=== PATIENT | female | born 1975 | race Caucasian/White ===

== ENCOUNTER 2024-01-04 11:08 | Emergency (ER) | payer SELFPAY ==
--- NOTE | ~2024-01-04 | CT_ITS ---
CT of the Abdomen and Pelvis: Indication: Abdominal pain, chronic pancreatitis Technique: 2.5 mm axial scans were obtained through the abdomen and pelvis following intravenous adm inistration of 100 cc of Omnipaque 350. Dose reduction technique was used on this scan by utilizing a utomated exposure control and iterative reconstruction technique. The dose-length product (DLP) was 2 99.86 mGy-cm. Findings: Scans through the lung bases demonstrate partially imaged 5 mm right lower lobe pulmonary nodule. There is diffuse hepatic steatosis. Diffuse nodular contour of liver present, without focal mass. Sma ll layering calcified gallstones are present. The spleen, pancreas, adrenals and kidneys are within n ormal limits. Mild atherosclerotic calcification of the aorta noted. No lymphadenopathy. No bowel obstruction or bowel wall thickening. There is no evidence to suggest acute appendicitis. Images through the pelvis were performed. Questionable cystitis. No pelvic mass seen. Status post hys terectomy. No ascites. Impression: Cirrhotic liver with background diffuse fatty infiltration of the liver. Cholelithiasis. Pancreas unremarkable. Partially imaged 5 mm right lower lobe pulmonary nodule. Consider dedicated chest CT to more complete ly evaluate. Otherwise, consider one-year follow-up exam. Reviewed, dictated and finalized at location . Impression: Cirrhotic liver with background diffuse fatty infiltration of the liver. Cholelithiasis. Pancreas unremarkable. Partially imaged 5 mm right lower lobe pulmonary nodule. Consider dedicated dung st CT to more completely evaluate. Otherwise, consider one-year follow-up exam.
[2024-01-04 11:08] VITALS: BP 143/104; PULSE 85; RESP 18; TEMP 36.2; O2SAT 100
--- NOTE | 2024-01-04 11:39 | ED.GENADULT ---
HPI - General Adult General Chief complaint: Abdominal Pain Stated complaint: cough, diarrhea, headache Time Seen by Provider: 01/04/24 11:38 Source: patient Mode of arrival: ambulatory Limitations: no limitations History of Present Illness HPI narrative: 48 years old white female came to the ED walking complaining of diarrhea, vomiting, runny nose, coughing, headache for the last 6 days. Patient is telling me that she is homeless for the last 2 years. Was seen at [facility] 5 days ago for similar symptoms and is telling me that she have a negative workup including CT scan of the abdomen and pelvis and was discharged on lorazepam/ 20 tablets patient is telling me that she is supposed to be on 18 tablets of medicine which she cannot afford. Last alcohol intake 1 month ago, patient is telling me that she lives in her car she denies any fever or chills she is telling me that she in history of hypertension, liver cirrhosis, pancreatitis secondary to alcoholism can not cholecystectomy. Patient uses marijuana daily Related Data Allergies Allergy/AdvReac Type Severity Reaction Status Date / Time No Known Allergies Allergy Verified 01/04/24 11:22 Review of Systems Review of Systems: All systems reviewed & are unremarkable except as noted in HPI and below Exam Narrative: General appearance: Well-developed, well-nourished, does not look in pain Skin: Normal color Head: Normocephalic, nontraumatic Eyes: Clear conjunctiva ENT: Oropharynx normal, ears normal, nose normal Neck: Supple, nontender Chest and respiratory: Airway patent, no respiratory distress, no accessory muscle use Heart: Regular rate/rhythm Abdomen: Soft, diffuse abdominal pain, no guarding or rebound no organomegaly, quiet bowel sounds Vascular: Normal peripheral pulses, normal capillary refill. Musculoskeletal: Normal range of motion, nontender back Neurologic: Alert and oriented ?3, MID LEVEL PROVIDER is normal as tested, no gross motor deficit Course Vital Signs Vital signs: Vital Signs Temperature 36.2 C L 01/04/24 11:08 Pulse Rate 85 01/04/24 11:08 Respiratory Rate 18 01/04/24 11:08 Blood Pressure 143/104 H 01/04/24 11:08 Pulse Oximetry 100 01/04/24 11:08 Oxygen Delivery Room Air 01/04/24 11:08 Temperature 36.3 C L 01/04/24 12:50 Pulse Rate 89 01/04/24 12:50 Respiratory Rate 16 01/04/24 12:50 Blood Pressure 158/92 H 01/04/24 12:50 Pulse Oximetry 100 01/04/24 12:50 Oxygen Delivery Room Air 01/04/24 12:50 Medical Decision Making [facility] Narrative Medical decision making narrative: Patient presents with symptoms of viral infection, abdominal pain, history of pancreatitis Vital signs are stable Physical examination showed generalized diffuse abdominal tenderness Differential diagnosis include viral infection, pancreatitis, constipation, colitis, urinary tract infection, anxiety related symptoms, dehydration, electrolyte imbalance Blood workup today showed low potassium of 3.0 otherwise no acute abnormalities urinalysis showed no evidence of infection CT abdomen and pelvis with IV contrast showed no evidence of pancreatitis, pulmonary nodule. Patient will be discharged on potassium, was advised to follow up with family physician in 1 week for pulmonary nodule further evaluation. the pt was discharged to home.the pt,s condition upon discharge was fair,education was provided to the pt in reference to the final impression,discharge study results,treatment,prognosis and need for follow up . Vital Signs Vital Signs: Vital Signs Temperature 36.2 C L 01/04/24 11:08 Pulse Rate 85 01/04/24 11:08 Respiratory Rate 18 01/04/24 11
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
[2024-01-04 11:58] LABS: Basophils Absolute Auto 0.01 K/mm3 (0.00-0.10); Basophils Percent Auto 0.2 % (0.0-1.0); Eosinophils Absolute Auto 0.03 K/mm3 (0.02-0.50); Eosinophils Percent Auto 0.7 % (1.0-6.0); Hematocrit 41.5 % (35.0-49.0); Hemoglobin 14.4 g/dL (12.0-15.0); Immature Granulocyte Absolute 0.01 K/mm3 (0.00-0.00); Immature Granulocyte Percent A 0.2 % (0.0-0.0); Lymphocytes Absolute Auto 1.22 K/mm3 (1.10-4.50); Lymphocytes Percent Auto 30.4 % (18.0-42.0); Mean Corpuscular HGB Conc 34.7 g/dL (32-36); Mean Corpuscular Hemoglobin 32.1 pg (27.0-31.0); Mean Corpuscular Volume 92.4 fL (78.0-102.0); Mean Platelet Volume 9.9 fl (9.2-11.8); Monocytes Absolute Auto 0.51 K/mm3 (0.10-0.90); Monocytes Percent Auto 12.7 % (2.0-11.0); Neutrophils Absolute Auto 2.23 K/mm3 (1.70-7.20); Neutrophils Percent Auto 55.8 % (50.0-70.0); Platelet Count Result 81 K/mm3 (150-420); Red Blood Count 4.49 M/mm3 (4.20-5.40); Red Cell Distribution Width 14.5 % (11.6-14.4)
[2024-01-04 11:59] LABS: Appearance Urine Clear (Clear); Bilirubin Urine 1+ (Negative); Blood Urine Negative (Negative); Glucose Urine UA Negative (Negative); Ketones Urine Trace (Negative); Leukocyte Esterase Ur Negative LEU/UL (Negative); Nitrate Urine Negative (Negative); Protein Urine Trace (Negative); Specific Grav Ur >= 1.030 (1.010-1.020)
[2024-01-04] MEDS: SODIUM CHLORIDE 0.9% IV 1,000 ML 999 ML IV CONT (12:01)
[2024-01-04] MEDS: ONDANSETRON INJ 4 MG/2 ML VIAL IV PUSH (12:02)
[2024-01-04] MEDS: MORPHINE SULFATE (*CRX) 4 MG/ML INJ IV PUSH (12:03)
[2024-01-04 12:05] LABS: Influenza A QL RT-PCR Negative (Negative); Influenza B QL RT-PCR Negative (Negative); RSV RNA, RT-PCR Negative (Negative); SARS-CoV-2 RNA PCR Negative (Negative)
[2024-01-04 12:11] LABS: Add Urine Microscopic? YES; Color Urine Amber (Yellow); RBC Urine None seen /hpf (0-2); Squamous Epithelial Cell Urine Moderate /hpf (Few); WBC Urine 0-3 /hpf (0-3)
[2024-01-04 12:12] LABS: Amphetamine Screen Urine Negative (Negative); Bacteria Urine Trace /hpf; Barbiturate Screen Urine Negative (Negative); Benzodiazepines Screen Urine Negative (Negative); Cannabinoid Screen Urine Positive (Negative); Cocaine Screen Urine Negative (Negative); Methadone Screen Urine Negative (Negative); Mucus Urine Few /lpf; Opiate Screen Urine Negative (Negative); Phencyclidine Screen Urine Negative (Negative)
[2024-01-04 12:16] LABS: Alanine Aminotransferase 55 U/L (14-59); Albumin Level 3.6 g/dL (3.4-5.0); Alkaline Phosphatase 101 U/L (46-116); Anion Gap 6 mmol/L (4-12); Aspartate Amino Transferase 83 U/L (15-37); Blood Urea Nitrogen 8 mg/dL (7-18); Calcium 8.9 mg/dL (8.5-10.1); Carbon Dioxide 35 mmol/L (21-32); Chloride 101 mmol/L (98-108); Estimated CRCL calculation 78 ml/min; Estimated Glomerular Filt Rate > 60; Ethanol < 3 mg/dL (0-6); Glucose 82 mg/dL (70-99); Lipase 77 U/L (16-77); Osmolality Calculated 291 mOsm/kg (285-295); Sodium 142 mmol/L (136-145)
[2024-01-04 12:50] VITALS: BP 158/92; PULSE 89; RESP 16; TEMP 36.3; O2SAT 100
--- NOTE | 2024-01-04 12:56 | PC.NURSE ---
PT RETURNED FROM CT, SLIPPER SOCKS AND MORE WARM BLANKETS WERE PROVIDED. PT IS AWAITING RESULTS AT THIS TIME. PT WAS REQUESTING SOMETHING TO EAT AND DRINK, ADVISED TO AWAIT RESULTS, NAD NOTED. PT THEN ASKED [facility]YST[facility]PER FOR MORE PAIN MEDICATION, ERP IS NOTIFIED AND NO NEW ORDERS AT THIS TIME. WILL CONTINUE TO MONITOR. EX CAME TO VISIT PT PRIOR TO CT, HE HAS LEFT. PT REPORTS HE WILL BE TRANSPORTING HER AT [place]. WILL CONTINUE TO MONITOR.
[2024-01-04] MEDS: POTASSIUM CHLORIDE 20 MEQ PACKET (FOR LIQUID) 40 MEQ PO (13:31)
--- NOTE | 2024-01-04 13:39 | PC.NURSE ---
NO EMESIS OR DIARRHEA NOTED DURING THE ED VISIT.
== END 2024-01-04 13:35 | disposition home or self-care (01) ==
PROVIDERS: Emergency Provider Emergency Medicine
DX: E87.6 Hypokalemia (principal); R10.9 Unspecified abdominal pain; G89.29 Other chronic pain; R91.1 Solitary pulmonary nodule; Z91.141 Patient's other noncompliance with medication regimen due to financial hardship; Z20.822 Contact with and (suspected) exposure to COVID-19
CPT/HCPCS: 36415; 74177; 80053; 80307; 81001; 83690; 85025; 87637; 96361; 96374; 96375; 99284; A9270; J2270; J2405; J7030; Q9967

== ENCOUNTER 2024-01-09 03:22 | Observation (INO) | payer SELFPAY ==
[2024-01-09] VITALS (34 sets, daily range): BP systolic 123–180; BP diastolic 78–110; PULSE 64–99; RESP 12–42; TEMP 35.5–36.6; O2SAT 96–100; BMI 22.1
--- NOTE | ~2024-01-09 | CT_ITS ---
Clinical Indication: Abdominal pain, lung nodule, history pancreatitis CT Scan of the Chest, Abdomen, and Pelvis with Contrast: Technique: Contiguous sections were acquired throughout the chest, abdomen, and pelvis after intraven ous administration of 100 cc of Omnipaque 350. Dose reduction technique was used on this scan by uti lizing automated exposure control and iterative reconstruction technique. The dose-length product (DL P) was 421.71 mGy-cm. Comparison: 01/04/2024 Findings: There is no evidence of any significant mediastinal, hilar or axillary lymphadenopathy. The mediastin al soft tissues appear normal. No aortic aneurysm or dissection seen. No large pulmonary embolus seen . There is no evidence of pleural or pericardial effusion. Stable 5 mm right lower lobe pulmonary nodule. Stable 4 mm pleural-based nodule left lower lobe later ally (axial image 91). Calcified left basilar granuloma noted. There is diffuse hepatic steatosis, with small liver with nodular contour, compatible cirrhotic hickman e. Calcified gallstones are present. The spleen, pancreas, adrenals and kidneys are within normal avalos its. No evidence of aortic aneurysm. No lymphadenopathy. No bowel obstruction or bowel wall thickening. There is no evidence to suggest acute appendicitis. Urinary bladder is unremarkable. No pelvic mass seen. No ascites. Impression: Subcentimeter pulmonary nodules, as above. According to Fleischner Society criteria, for a low-risk p atient, no further follow-up required. For a high-risk patient, consider 12 month follow-up CT. Cirrhotic liver with associated diffuse fatty infiltration. Cholelithiasis. Reviewed, dictated and finalized at location . Impression: Subcentimeter pulmonary nodules, as above. According to Fleischner Society crit pily, for a low-risk patient, no further follow-up required. For a high-risk pa tient, consider 12 month follow-up CT. Cirrhotic liver with associated diffuse fatty infiltration. Cholelithiasis.
--- NOTE | ~2024-01-09 | US_ITS ---
Limited ABDOMINAL ULTRASOUND Ordering provider: Sanchez Baez MD History: . pain . Comparison: None. FINDINGS: LIVER: Lobulated surface which may indicate cirrhosis. Otherwise, Normal size. Slightly heterogenous echogenicity.. No focal hepatic lesions or perihepatic fluid collections are identified. Portal vein flow is normal. GALLBLADDER: Multiple stones. No evidence for sludge, gallbladder wall thickening or pericholecystic fluid collections. A negative sonographic Sky's sign was noted. BILIARY DUCTS: No evidence for intra or extrahepatic biliary dilation. Common bile duct measures mm i n diameter which is within normal limits. PANCREAS: Normal echotexture and size. Slightly dilated measuring 3.6 mm. FREE FLUID: None. IMPRESSION: Cholelithiasis. Slightly heterogenous echogenicity of the liver with lobulated surface which raises the possibility o f cirrhosis. Clinical correlation advised. Reviewed, dictated and finalized at location A. IMPRESSION: Cholelithiasis. Slightly heterogenous echogenicity of the liver with lobulated surface which ra ises the possibility of cirrhosis. Clinical correlation advised.
--- NOTE | 2024-01-09 03:31 | ECG_ITS ---
Test Date: 2024-01-09 03:45:55 Measurements Intervals [place] Rate: 85 P: 70 AL: 152 QRS: 79 QRSD: 96 T: 62 QT: 332 QTc: 396 Interpretive Statements SINUS RHYTHM DELAYED PRECORDIAL R/S TRANSITION ST-T WAVE ABNORMALITY IN LAT LEADS- CONSIDER ISCHEMIA BASELINE ARTIFACT- I, II, III, AVR, AVL, AVF ABNORMAL ECG No previous ECG available for comparison Electronically Signed On 01-09-2024 06:30:27 CDT by Edgar Nobles D.O.
--- NOTE | 2024-01-09 03:35 | ED.ABDPAIN ---
HPI - Abdominal Pain General Chief Complaint: Abdominal Pain <Sanchez Baez MD - Last Filed: 01/10/24 07:21> Stated Complaint: vomiting <Sanchez Baez MD - Last Filed: 01/10/24 07:21> Time Seen by Provider: 01/09/24 03:30 <Sanchez Baez MD - Last Filed: 01/10/24 07:21> Source: patient <Sanchez Baez MD - Last Filed: 01/10/24 07:21> Mode of arrival: ambulatory <Sanchez Baez MD - Last Filed: 01/10/24 07:21> Limitations: no limitations <Sanchez Baez MD - Last Filed: 01/10/24 07:21> History of Present Illness HPI narrative: Patient is a 48-year-old female with known alcoholism and secondary chronic pancreatitis, cirrhosis and gallbladder issues. This evening she started to feel not well having some anxiety and decrease her alcohol consumption and nausea and vomiting. She has been having diarrhea all week. She is noncompliant with her medications regularly. She drinks daily. No history of alcohol withdrawal. She has some left upper quadrant abdominal pain. She correlates this with her pancreas symptoms. <Sanchez Baez MD - Last Filed: 01/10/24 07:21> MD elicited complaint: abdominal pain <Sanchez Baez MD - Last Filed: 01/10/24 07:21> Pertinent past history: other ( Pancreatitis, cirrhosis and gallbladder issues) <Sanchez Baez MD - Last Filed: 01/10/24 07:21> Onset (ago): hour(s) (3) <Sanchez Baez MD - Last Filed: 01/10/24 07:21> Pain Consistency: constant <Sanchez Baez MD - Last Filed: 01/10/24 07:21> Location: [facility] <Sanchez Baez MD - Last Filed: 01/10/24 07:21> Severity: mild <Sanchez Baez MD - Last Filed: 01/10/24 07:21> Pain scale (0-10): 3 <Sanchez Baez MD - Last Filed: 01/10/24 07:21> Quality: sharp <Sanchez Baez MD - Last Filed: 01/10/24 07:21> Radiation: none <Sanchez Baez MD - Last Filed: 01/10/24 07:21> Migration to: no migration <Sanchez Baez MD - Last Filed: 01/10/24 07:21> Exacerbating factors: nothing <Sanchez Baez MD - Last Filed: 01/10/24 07:21> Relieving factors: nothing <Sanchez Baez MD - Last Filed: 01/10/24 07:21> Context: confirms other ( beer drinking daily; four loco) <Sanchez Baez MD - Last Filed: 01/10/24 07:21> Associated symptoms: nausea, vomiting and diarrhea <Sanchez Baez MD - Last Filed: 01/10/24 07:21> Related Data Allergies/Adverse Reactions: Allergies Allergy/AdvReac Type Severity Reaction Status Date / Time No Known Allergies Allergy Verified 01/09/24 03:36 <Sanchez Baez MD - Last Filed: 01/10/24 07:21> Review of Systems Review of Systems: All systems reviewed & are unremarkable except as noted in HPI and below <Sanchez Baez MD - Last Filed: 01/10/24 07:21> Constitutional: Constitutional: Reports no additional constitutional complaints <Sanchez Baez MD - Last Filed: 01/10/24 07:21> Eyes: Eyes: Reports no additional eye complaints <Sanchez Baez MD - Last Filed: 01/10/24 07:21> ENT: Reports system reviewed and no additional complaints, except as documented <Sanchez Baez MD - Last Filed: 01/10/24 07:21> Cardiovascular: Cardiovascular: Reports no additional cardiovascular complaints <Sanchez Baez MD - Last Filed: 01/10/24 07:21> Respiratory: Respiratory: Reports no additional respiratory complaints <Sanchez Baez MD - Last Filed: 01/10/24 07:21> Gastrointestinal: Gastrointestinal: Reports no additional gastrointestinal complaints <Sanchez Baez MD - Last Filed: 01/10/24 07:21> Genitourinary: Genitourinary: Reports no additional female genitourinary complaints <Sanchez Baez MD - Last Filed: 01/10/24 07:21> Musculoskeletal: Musculoskeletal: Reports no additional musculoskeletal complaints <Sanchez Baez MD - Last Filed: 01/10/24 07:21> Integumentary/Breasts: Skin/Breast: Reports system rev
--- NOTE | 2024-01-09 03:40 | PC.NURSE ---
pt placed on bedpan for urine specimen
[2024-01-09 03:52] LABS: Hematocrit 39.7 % (35.0-49.0); Hemoglobin 14.1 g/dL (12.0-15.0); Immature Platelet Fraction Pct 1.9 % (1.0-7.0); Mean Corpuscular HGB Conc 35.5 g/dL (32-36); Mean Platelet Volume 9.9 fl (9.2-11.8); Platelet Count Result 104 K/mm3 (150-420); Red Blood Count 4.41 M/mm3 (4.20-5.40); Red Cell Distribution Width 14.7 % (11.6-14.4); White Blood Count 2.8 K/mm3 (4.8-10.8)
[2024-01-09] MEDS: LORazepam INJ (*CRX) 2 MG/ML VIAL 1 MG IV PUSH (03:54)
[2024-01-09] MEDS: SODIUM CHLORIDE 0.9% IV 1,000 ML 999 ML IV CONT ×2 (03:55→04:45)
[2024-01-09] MEDS: PIPERACILLN/TAZ 3.375GM/NS50ML 3.375 GM/50 ML BAG IVPB (03:56)
[2024-01-09 03:58] LABS: Add Urine Microscopic? YES; Appearance Urine Clear (Clear); Bilirubin Urine 1+ (Negative); Blood Urine Negative (Negative); Color Urine Yellow (Yellow); Glucose Urine UA Negative (Negative); Ketones Urine 1+ (Negative); Leukocyte Esterase Ur Negative LEU/UL (Negative); Nitrate Urine Negative (Negative); Protein Urine 2+ (Negative); pH Urine 7.5 (5.0-8.0)
[2024-01-09 04:03] LABS: Amorphous Sediment Urine Few; Bacteria Urine 1+ /hpf; Mucus Urine Few /lpf; RBC Urine 0-2 /hpf (0-2); Squamous Epithelial Cell Urine Few /hpf (Few); WBC Urine 0-3 /hpf (0-3)
[2024-01-09 04:05] LABS: INR 1.1; Partial Thromboplastin Time 25.8 Sec (23.9-30.70); Prothrombin Time 11.9 Seconds (9.50-12.1)
[2024-01-09 04:08] LABS: Lactic Acid Reflex 4.7 mmol/L (0.4-2.0)
[2024-01-09 04:11] LABS: Band Neutrophils Percent 0 % (0-6); Neutrophils Absolute Manual 1.34 K/mm3 (1.7-7.2); Neutrophils Percent Manual 48 % (46-73); Total Cells Counted 100
[2024-01-09 04:12] LABS: Alanine Aminotransferase 49 U/L (14-59); Albumin Level 3.4 g/dL (3.4-5.0); Alkaline Phosphatase 102 U/L (46-116); Anion Gap 18 mmol/L (4-12); Aspartate Amino Transferase 99 U/L (15-37); Basophils Percent Manual 0 % (0-1); Bilirubin,Total 1.3 mg/dL (0.00-1.00); Blood Urea Nitrogen 4 mg/dL (7-18); Calcium 8.6 mg/dL (8.5-10.1); Carbon Dioxide 21 mmol/L (21-32); Chloride 103 mmol/L (98-108); Eosinophils Percent Manual 0 % (1-6); Estimated CRCL calculation 79 ml/min; Estimated Glomerular Filt Rate > 60; Glucose 118 mg/dL (70-99); Lipase 69 U/L (16-77); Lymphocytes Percent Manual 43 % (18-44); Magnesium 1.3 mg/dL (1.8-2.4); Monocytes Absolute Manual 0.25 K/mm3 (0.1-0.90); Monocytes Percent Manual 9 % (3-9); Osmolality Calculated 291 mOsm/kg (285-295); Platelet Estimate Decreased (Adequate); Sodium 142 mmol/L (136-145); Total Protein 7.4 g/dL (6.4-8.2); Troponin I 4.9 ng/L (0.00-60.4)
[2024-01-09 04:13] LABS: Potassium 2.2 mmol/L (3.5-5.1)
[2024-01-09] MEDS: MORPHINE SULFATE (*CRX) 2 MG/ML INJ IV PUSH (04:44)
[2024-01-09] MEDS: KCL 20 MEQ/SW 100 ML 100 ML 50 MEQ IVPB ×3 (04:45→13:41)
[2024-01-09] MEDS: MAGNESIUM SULF 2 GM/WATER 50ML 2 GM/50 ML BAG IVPB (04:58)
--- NOTE | 2024-01-09 05:17 | PC.NURSE ---
Pt throwing off covers, sweating, saying she is burning up. Gave her a cold wash cloth for her forehead. She dry heaved 3 times. Pt used bedside commode. Pt back in stretcher. Now she says she is freezing and wants to be covered back up.
[2024-01-09] MEDS: ONDANSETRON INJ 4 MG/2 ML VIAL IV PUSH ×4 (05:57→14:10)
--- NOTE | 2024-01-09 06:04 | PC.NURSE ---
Assisted pt in using bedside commode. ERP approved giving pt cup of room temp water to drink.
[2024-01-09 06:47] LABS: Reflex Lactic Acid Yes or No Add Lactic
[2024-01-09 07:21] LABS: Lactic Acid 2.4 mmol/L (0.4-2.0)
[2024-01-09] MEDS: HYDROmorphone HCL INJ (*CRX) 2 MG/ML VIAL 0.5 MG IV PUSH (07:31)
[2024-01-09 09:25] LABS: Amphetamine Screen Urine Negative (Negative); Barbiturate Screen Urine Negative (Negative); Benzodiazepines Screen Urine Negative (Negative); Cannabinoid Screen Urine Positive (Negative); Cocaine Screen Urine Negative (Negative); Methadone Screen Urine Negative (Negative); Opiate Screen Urine Negative (Negative); Phencyclidine Screen Urine Negative (Negative)
[2024-01-09 09:26] LABS: Anion Gap 12 mmol/L (4-12); Blood Urea Nitrogen 3 mg/dL (7-18); Calcium 7.9 mg/dL (8.5-10.1); Carbon Dioxide 28 mmol/L (21-32); Chloride 104 mmol/L (98-108); Estimated CRCL calculation 91 ml/min; Estimated Glomerular Filt Rate > 60; Ethanol 16 mg/dL (0-6); Glucose 130 mg/dL (70-99); Magnesium 1.8 mg/dL (1.8-2.4); Osmolality Calculated 296 mOsm/kg (285-295); Potassium 2.7 mmol/L (3.5-5.1); Sodium 144 mmol/L (136-145)
[2024-01-09] MEDS: SODIUM CHLORIDE 0.9% IV 1,000 ML 100 ML IV CONT ×2 (09:58→22:04)
[2024-01-09] MEDS: FOLIC ACID 1 MG TABLET PO (09:58)
[2024-01-09] MEDS: MULTIVITAMINS THERAPEUTIC TAB (*BKC) 1 TABLET PO (09:58)
[2024-01-09] MEDS: THIAMINE HCL 100 MG TABLET PO (09:59)
[2024-01-09] MEDS: LORazepam (*CRX) 1 MG TABLET 2 MG PO ×2 (10:33→17:06)
[2024-01-09] MEDS: methocarbamoL 750 MG TABLET PO ×3 (10:33→19:39)
[2024-01-09] MEDS: LORazepam INJ (*CRX) 2 MG/ML VIAL IV PUSH ×2 (14:10→20:21)
--- NOTE | 2024-01-09 14:35 | PC.NURSE ---
Pt arrived on the unit at 0930 from the ER. She is alert and orientated x 3. Vomitted x1 and is nauseous . Pt is very anxious, having tremors, and is withdrawing from ETOH. Pt is sweating at this time. She is homeless and Care coordination is involved.
--- NOTE | 2024-01-09 14:41 | PM.IMHP ---
H&P: HPI History of Present Illness Date/Time: 01/09/24 14:41 Chief Complaint: N/V/ABD pain Narrative: Patient is a 48-year-old female who presented to the emergency department with complaints nausea vomiting abdominal pain. Patient stated symptoms began around 5 days ago when she initially came to the ER for evaluation and was discharged home p.o. potassium. Patient returned today for worsening symptoms. Patient did report she has a past history of hypertension, EtOH abuse, and marijuana use. Patient states she is currently homeless and unable to afford any of her home medications. Patient reported last alcoholic drink about 12 hours prior to arrival ETOH was 16 and drug screen was positive for cannabis. Patient denied chest pain shortness of breath, fever, chills but did endorse nausea vomiting abdominal pain and reported severe anxiety. Patient's KUB did show cholelithiasis. Patient with noticeable tremors and diaphoresis upon assessment. Patient was admitted to medical unit evaluation and treatment ETOH withdrawal, hypokalemia, hypo magnesium, dehydration, and nausea vomiting. Review of Systems Review of Systems: All systems reviewed & are unremarkable except as noted in HPI and below PMFSH Past Medical History Medical History (Updated 01/09/24 @ 14:52 by Holli Sunshine APRN) ETOH abuse Hypertension Social History Social History Smoking status: Never smoker Second hand tobacco smoke exposure: No Alcohol intake: current Drinks per week: 30 Substance use: current Substance use type: marijuana Other substance usage details: Last drink was at 6am this morning Do You Feel Safe in your Home?: No Lack of Transportation: YES Lack of Food: Sometimes True Current Housing: I Do Not Have Housing Concerned About Future Housing: YES Difficulty Paying Gas/Electric Bills: YES Difficulty Paying for Meds: YES Currently Unemployed: YES Education: High School Diploma/GED Difficulty w/ Childcare or Family Care: No Spiritual care concerns: No Meds Home Medications and Allergies Home Medications Medication Instructions Recorded Confirmed Type potassium chloride 20 mEq 40 meq PO BID #20 tabs 01/04/24 01/09/24 Rx tablet,extended release Allergies Allergy/AdvReac Type Severity Reaction Status Date / Time No Known Allergies Allergy Verified 01/09/24 03:36 Vital Signs Vital Signs - 24 hr 01/09/24 03:30 01/09/24 04:06 01/09/24 03:30 Temperature 95.9 F L 97.9 F Pulse Rate 89 92 Pulse Rate [Radial] Respiratory Rate 20 42 H Blood Pressure 155/93 H 145/83 H Pulse Oximetry 100 100 Oxygen Delivery Room Air 01/09/24 03:50 01/09/24 04:00 01/09/24 04:01 Temperature Pulse Rate 73 75 70 Pulse Rate [Radial] Respiratory Rate 14 25 H 24 H Blood Pressure 157/101 H 155/84 H Pulse Oximetry 100 100 99 Oxygen Delivery 01/09/24 04:15 01/09/24 04:16 01/09/24 04:36 Temperature Pulse Rate 66 70 Pulse Rate [Radial] Respiratory Rate 23 H 31 H Blood Pressure 149/91 H 165/94 H Pulse Oximetry 100 100 Oxygen Delivery 01/09/24 04:46 01/09/24 05:01 01/09/24 05:16 Temperature Pulse Rate 68 82 77 Pulse Rate [Radial] Respiratory Rate 26 H 23 H 32 H Blood Pressure 164/110 H 147/99 H 146/79 H Pulse Oximetry 100 96 100 Oxygen Delivery 01/09/24 05:30 01/09/24 05:45 01/09/24 06:01 Temperature Pulse Rate 76 86 74 Pulse Rate [Radial] Respiratory Rate 22 H 20 30 H Blood Pressure 123/79 135/92 H 151/101 H Pulse Oximetry 97 96 100 Oxygen Delivery 01/09/24 06:02 01/09/24 06:15 01/09/24 07:05 Temperature 97.6 F Pulse Rate 69 71 78 Pulse Rate [Radial] Respiratory Rate 33 H 12 28 H Blood Pressure 165/78 H Pulse Oximetry 100 97 99 Oxygen Delivery Room Air 01/09/24 06:30 01/09/24 06:45 01/09/24 07:24 Temperature Pulse Rate 75 94 Pulse
[2024-01-09 15:45] LABS: Lactic Acid Reflex 1.2 mmol/L (0.4-2.0)
[2024-01-09] MEDS: POTASSIUM CHLORIDE 20 MEQ ER TABLET 40 MEQ PO (17:07)
[2024-01-09 17:29] LABS: Glucose Point of Care 137 mg/dl (65-105)
[2024-01-09] MEDS: traZODone HCL 50 MG TABLET PO (22:27)
[2024-01-10] VITALS: BP 138/80; PULSE 78; PULSE 84; PULSE 87; RESP 16; TEMP 36.5; O2SAT 99
[2024-01-10 00:21] LABS: Glucose Point of Care 119 mg/dl (65-105)
[2024-01-10] MEDS: LORazepam INJ (*CRX) 2 MG/ML VIAL IV PUSH ×4 (00:23→13:33)
[2024-01-10] MEDS: LORazepam (*CRX) 1 MG TABLET 2 MG PO ×2 (02:14→09:54)
[2024-01-10 04:00] VITALS: BP 128/76; PULSE 82; PULSE 88; PULSE 94; RESP 16; TEMP 36.4; O2SAT 98
[2024-01-10 05:45] LABS: Hematocrit 37.4 % (35.0-49.0); Hemoglobin 13.2 g/dL (12.0-15.0); Immature Platelet Fraction Pct 3.3 % (1.0-7.0); Mean Corpuscular HGB Conc 35.3 g/dL (32-36); Mean Corpuscular Hemoglobin 32.6 pg (27.0-31.0); Mean Corpuscular Volume 92.3 fL (78.0-102.0); Platelet Count Result 76 K/mm3 (150-420); Red Blood Count 4.05 M/mm3 (4.20-5.40); White Blood Count 2.8 K/mm3 (4.8-10.8)
[2024-01-10 05:56] LABS: Band Neutrophils Percent 0 % (0-6); Basophils Absolute Manual 0.05 K/mm3 (0-0.1); Basophils Percent Manual 2 % (0-1); Eosinophils Absolute Manual 0.05 K/mm3 (0.02-0.50); Eosinophils Percent Manual 2 % (1-6); Lymphocytes Absolute Manual 0.89 K/mm3 (1.1-4.5); Lymphocytes Percent Manual 32 % (18-44); Monocytes Absolute Manual 0.44 K/mm3 (0.1-0.90); Monocytes Percent Manual 16 % (3-9); Neutrophils Absolute Manual 1.34 K/mm3 (1.7-7.2); Neutrophils Percent Manual 48 % (46-73); Platelet Estimate Decreased (Adequate)
[2024-01-10 06:02] LABS: Alanine Aminotransferase 40 U/L (14-59); Albumin Level 2.9 g/dL (3.4-5.0); Alkaline Phosphatase 89 U/L (46-116); Anion Gap 10 mmol/L (4-12); Aspartate Amino Transferase 60 U/L (15-37); Bilirubin,Total 1.1 mg/dL (0.00-1.00); Blood Urea Nitrogen 3 mg/dL (7-18); Carbon Dioxide 25 mmol/L (21-32); Chloride 103 mmol/L (98-108); Estimated CRCL calculation 78 ml/min; Estimated Glomerular Filt Rate > 60; Glucose 95 mg/dL (70-99); Magnesium 1.6 mg/dL (1.8-2.4); Osmolality Calculated 282 mOsm/kg (285-295); Sodium 138 mmol/L (136-145); Total Protein 6.7 g/dL (6.4-8.2)
[2024-01-10 06:33] LABS: Glucose Point of Care 98 mg/dl (65-105)
[2024-01-10] MEDS: ACETAMINOPHEN 325 MG TABLET 650 MG PO (06:49)
[2024-01-10 07:51] VITALS: BP 125/88; PULSE 83
[2024-01-10 08:00] VITALS: BP 125/85; PULSE 87; PULSE 95; RESP 14; TEMP 36.5; O2SAT 97
[2024-01-10] MEDS: SODIUM CHLORIDE 0.9% IV 1,000 ML 100 ML IV CONT (08:07)
[2024-01-10] MEDS: KCL 20 MEQ/SW 100 ML 100 ML 50 MEQ IVPB (09:45)
[2024-01-10] MEDS: POTASSIUM CHLORIDE 20 MEQ ER TABLET 40 MEQ PO (09:53)
[2024-01-10] MEDS: FOLIC ACID 1 MG TABLET PO (09:54)
[2024-01-10] MEDS: THIAMINE HCL 100 MG TABLET PO (09:54)
[2024-01-10] MEDS: PANTOPRAZOLE 40 MG TABLET PO (09:55)
[2024-01-10] MEDS: MULTIVITAMINS THERAPEUTIC TAB (*BKC) 1 TABLET PO (09:55)
[2024-01-10 12:00] VITALS: BP 135/78; BP 138/80; PULSE 88; PULSE 97; RESP 14; TEMP 36.6; O2SAT 98
[2024-01-10 12:13] LABS: Glucose Point of Care 141 mg/dl (65-105)
--- NOTE | 2024-01-10 12:33 | PM.DS ---
DS: Admitting Diagnosis Discharge Date 01/10/2024 Admitting Diagnosis alcohol withdrawal/ hypokalemia/ Hypomagnesium DS: Discharge Diagnosis Discharge Diagnosis (1) ETOH abuse: Code(s): F10.10 - Alcohol abuse, uncomplicated Status: Acute (2) Acute hypokalemia: Code(s): E87.6 - Hypokalemia Status: Acute (3) Hypertension: Code(s): I10 - Essential (primary) hypertension Status: Acute (4) Hypomagnesemia: Code(s): E83.42 - Hypomagnesemia Status: Acute Assessment and Plan: 1.3 POA 2gram Mag daily cardiac monitoring (5) Cannabis abuse: Code(s): F12.10 - Cannabis abuse, uncomplicated Status: Acute (6) Leukopenia: Code(s): D72.819 - Decreased white blood cell count, unspecified Status: Acute Plan Disposition: Patient discharged to home DS: Summary Hospital Course Reason for hospitalization: alcohol withdrawal/ hypokalemia/ Hypomagnesium Hospital Course: Patient was [id number] female who presented to the emergency department with complaints nausea vomiting abdominal pain. Patient stated symptoms began around 5 days ago when she initially came to the ER for evaluation and was discharged home p.o. potassium. Patient returned today for worsening symptoms. Patient did report she has a past history of hypertension, EtOH abuse, and marijuana use. Patient states she is currently homeless and unable to afford any of her home medications. Patient reported last alcoholic drink about 12 hours prior to arrival ETOH was 16 and drug screen was positive for cannabis. Patient denied chest pain shortness of breath, fever, chills but did endorse nausea vomiting abdominal pain and reported severe anxiety. Patient's KUB did show cholelithiasis. Patient with noticeable tremors and diaphoresis upon assessment. Patient was admitted to medical unit and treatment for ETOH withdrawal, hypokalemia, hypo magnesium, dehydration, and nausea vomiting. Patient improved with treatment and was tolerating oral intake. electrolytes stable at discharge. She was provided prescriptions for ETOH including multi-vitamin, Thiamine, and folic acid daily. Encouraged patient on immediate ETOH cessation. Status at Discharge Functional status at discharge: independent ambulation Time Spent with Patient Time attestation: Total time spent providing and/or coordinating discharge services: Time spent: Greater than 30 minutes Exam Narrative: Physical Exam: GENERAL: Alert and oriented x 3. No acute distress. EYES: EOMI. No scleral icterus. PERRLA. HEENT: Moist mucous membranes. LUNGS: Clear to auscultation bilaterally. No accessory muscle use. CARDIOVASCULAR: Regular rate and rhythm. No murmur. No JVD. S1-S2 ABDOMEN: Soft, non tenderness and non-distended. No palpable masses. EXTREMITIES: No edema. Non-tender SKIN: No rashes or lesions. Skin warm, dry. NEUROLOGIC: No focal neurological deficits. CN II-XII grossly intact PSYCHIATRIC: Appropriate mood and affect. Good judgement and insight. No visual or auditory hallucinations. No suicidal or homicidal ideation. DS: Data Data Completed and Pending Labs on day of discharge: Labs from last 24 hours 01/10/24 01/10/24 01/10/24 12:05 06:27 05:20 WBC 2.8 L RBC 4.05 L Hgb 13.2 Hct 37.4 MCV 92.3 MCH 32.6 H MCHC 35.3 RDW 15.0 H Plt Count 76 L MPV 10.0 Immature Gran % (Auto) Not Reportable Neut % (Auto) Not Reportable Lymph % (Auto) Not Reportable [place] % (Auto) Not Reportable Eos % (Auto) Not Reportable Baso % (Auto) Not Reportable Lymph # (Auto) Not Reportable [place] # (Auto) Not Reportable Eos # (Auto) Not Reportable Baso # (Auto) Not Reportable Abs Immat Gran (auto) Not Reportable Absolute Neuts (auto) Not Reportable Absolute Nucleated RBC Not Reportable Neutrophils % (Manual) 48 Band Neutrophils % 0
[2024-01-10 13:14] LABS: Anion Gap 11 mmol/L (4-12); Calcium 8.5 mg/dL (8.5-10.1); Carbon Dioxide 24 mmol/L (21-32); Chloride 105 mmol/L (98-108); Estimated CRCL calculation 71 ml/min; Estimated Glomerular Filt Rate > 60; Glucose 104 mg/dL (70-99); Potassium 3.8 mmol/L (3.5-5.1); Sodium 140 mmol/L (136-145)
[2024-01-10 13:20] LABS: Blood Urea Nitrogen 4 mg/dL (7-18); Osmolality Calculated 286 mOsm/kg (285-295)
--- NOTE | 2024-01-10 14:32 | PC.NURSE ---
Pt discharged to Ex husbands home. Pt given discharge instructions about medications: purpose, SE, times and dosages. Fall precautions reviewed, vice president of consulting services information reviewed with pt. Pt instructed not to drink ETHOL while taking trazadone. Pt encouraged to get a PCP and contact [facility] and let them know that she has been hospitalized.
== END 2024-01-10 13:30 | disposition home or self-care (01) ==
LOC: CHSED 08:55 → CHS2ND 08:58
PROVIDERS: Emergency Medicine; Admitting Provider Internal Medicine; Emergency Provider Family Medicine; Visit Provider Nurse Practitioner Family
DX: F10.139 Alcohol abuse with withdrawal, unspecified (principal); Y90.0 Blood alcohol level of less than 20 mg/100 ml; E87.6 Hypokalemia; I10 Essential (primary) hypertension; E83.42 Hypomagnesemia; F12.10 Cannabis abuse, uncomplicated; D72.819 Decreased white blood cell count, unspecified; E86.0 Dehydration; R11.2 Nausea with vomiting, unspecified; K86.1 Other chronic pancreatitis; Z59.00 Homelessness unspecified; Z91.148 Patient's other noncompliance with medication regimen for other reason
CPT/HCPCS: 36415; 71260; 74177; 76705; 80048; 80053; 80307; 81001; 82948; 83605; 83690; 83735; 84484; 85025; 85055; 85610; 85730; 87040; 93005; 96361; 96365; 96366; 96367; 96375; 96376; 99285; A9270; G0378; J1170; J2060; J2270; J2405; J2543; J3475; J3480; J7030; Q9967

== ENCOUNTER 2024-01-13 03:18 | Emergency (ER) | payer SELFPAY ==
--- NOTE | ~2024-01-13 | CT_ITS ---
CT of the Abdomen and Pelvis: Indication: Epigastric pain Technique: 2.5 mm axial scans were obtained through the abdomen and pelvis following intravenous adm inistration of 100 cc of Omnipaque 350. Dose reduction technique was used on this scan by utilizing a utomated exposure control and iterative reconstruction technique. The dose-length product (DLP) was 3 21.47 mGy-cm. COMPARISON: 01/09/2024 Findings: Scans through the lung bases are unremarkable. Cirrhotic morphology of liver present with diffuse fatty infiltration. No focal hepatic mass or bilia ry dilatation. Calcified gallstones are present. The spleen, pancreas, adrenals and kidneys are withi n normal limits. No evidence of aortic aneurysm. No lymphadenopathy. No bowel obstruction or bowel wall thickening. There is no evidence to suggest acute appendicitis. Images through the pelvis were performed. Urinary bladder unremarkable. No pelvic mass seen. No ascit es. Impression: Cirrhotic liver with diffuse fatty infiltration. Cholelithiasis. Reviewed, dictated and finalized at location . Impression: Cirrhotic liver with diffuse fatty infiltration. Cholelithiasis.
[2024-01-13 03:26] VITALS: BP 128/91; PULSE 88; RESP 15; TEMP 36.3; O2SAT 97
[2024-01-13 03:30] VITALS: BP 111/80; PULSE 87; RESP 22; O2SAT 97
--- NOTE | 2024-01-13 03:42 | ED.NAVMDI ---
HPI - Nausea/Vomiting/Diarrhea General Chief complaint: Nausea/Vomiting/Diarrhea Stated complaint: N/V Source: patient and EMS Mode of arrival: EMS Limitations: no limitations History of Present Illness HPI Narrative: this is a 48-year-old female with a history of pancreatitis alcohol abuse presents via EMS with abdominal pain diffuse localizing to her left lower quadrant and with nausea and vomiting and episodes of diarrhea. Patient was recently discharged from the hospital for similar events. There is currently no fever chills no chest pain no shortness breath. MD elicited complaint: nausea, vomiting, diarrhea and abdominal pain Onset (ago): day(s) Related Data Allergies Allergy/AdvReac Type Severity Reaction Status Date / Time No Known Allergies Allergy Verified 01/13/24 03:30 Review of Systems Review of Systems: All systems reviewed & are unremarkable except as noted in HPI and below PMFSH Past Medical History Medical History ETOH abuse Hypertension Social History Social History Smoking status: Never smoker Second hand tobacco smoke exposure: No Alcohol intake: current Drinks per week: 30 Substance use: current Substance use type: marijuana Other substance usage details: Last drink was at 6am this morning Do You Feel Safe in your Home?: No Lack of Transportation: YES Lack of Food: Sometimes True Current Housing: I Do Not Have Housing Concerned About Future Housing: YES Difficulty Paying Gas/Electric Bills: YES Difficulty Paying for Meds: YES Currently Unemployed: YES Education: High School Diploma/GED Difficulty w/ Childcare or Family Care: No Spiritual care concerns: No Exam Const: General: healthy appearing and no acute distress Nutritional Appearance: well nourished Orientation/consciousness: patient oriented x3 Neck: Neck: normal visual inspection, no lymphadenopathy and no meningeal signs Chest: Chest palpation & inspection: normal inspection of the chest Resp: Effort & Inspection: normal respiratory effort Auscultation: clear to auscultation bilaterally Cardio: Rate: regular rate Rhythm: regular rhythm GI: GI Palp: Yes Soft to palpation, Yes Tenderness to palpation present (GI) and Yes Guarding due to palpation present (GI) Auscultation: normal bowel sounds : General: Yes bladder normal to palpation Back/Spine/Pelvis: Back: no CVA tenderness Skin: General skin exam: normal color Rashes: no rashes Wounds: no wounds Neuro: General: patient oriented x3 Extrem: General: normal to inspection Course Vital Signs Vital signs: Vital Signs Temperature 36.3 C L 01/13/24 03:26 Pulse Rate 88 01/13/24 03:26 Respiratory Rate 15 01/13/24 03:26 Blood Pressure 128/91 H 01/13/24 03:26 Pulse Oximetry 97 01/13/24 03:26 Oxygen Delivery Room Air 01/13/24 03:26 Temperature 36.3 C L 01/13/24 03:26 Pulse Rate 80 01/13/24 06:00 Respiratory Rate 24 H 01/13/24 06:00 Blood Pressure 121/84 01/13/24 06:00 Pulse Oximetry 95 01/13/24 06:00 Oxygen Delivery Room Air 01/13/24 06:00 MDM - Nausea/Vomiting/Diarrhea Lab Data 01/13/24 04:02 01/13/24 04:02 Labs: Lab Results 01/13/24 01/13/24 Range/Units 03:55 04:02 WBC 3.6 L (4.8-10.8) K/mm3 RBC 4.31 (4.20-5.40) M/mm3 Hgb 13.9 (12.0-15.0) g/dL Hct 40.4 (35.0-49.0) % MCV 93.7 (78.0-102.0) fL MCH 32.3 H (27.0-31.0) pg MCHC 34.4 (32-36) g/dL RDW 15.2 H (11.6-14.4) % Plt Count 100 L (150-420) K/mm3 MPV 10.1 (9.2-11.8) fl Immature Gran % (Auto) Not Reportable Neut % (Auto) Not Reportable Lymph % (Auto) Not Reportable [place] % (Auto) Not Reportable Eos % (Auto) Not Reportable Baso % (Auto) Not Reportable Lymph # (Auto) Not Reportable [place] # (Auto) Not Reportable
[2024-01-13] MEDS: SODIUM CHLORIDE 0.9% IV 1,000 ML 999 ML IV CONT (03:56)
[2024-01-13 03:58] LABS: Add Urine Microscopic? YES; Appearance Urine Clear (Clear); Bilirubin Urine 1+ (Negative); Blood Urine Negative (Negative); Color Urine Orange (Yellow); Glucose Urine UA Negative (Negative); Ketones Urine Trace (Negative); Leukocyte Esterase Ur Negative LEU/UL (Negative); Nitrate Urine Negative (Negative); Protein Urine Trace (Negative)
[2024-01-13] MEDS: PANTOPRAZOLE SODIUM IV 40 MG VIAL IV PUSH (03:58)
[2024-01-13] MEDS: MORPHINE SULFATE (*CRX) 4 MG/ML INJ IV PUSH (03:59)
[2024-01-13] MEDS: ONDANSETRON INJ 4 MG/2 ML VIAL IV PUSH (04:01)
[2024-01-13 04:06] VITALS: BP 121/83; PULSE 80; RESP 29; O2SAT 98
[2024-01-13 04:07] LABS: Hematocrit 40.4 % (35.0-49.0); Hemoglobin 13.9 g/dL (12.0-15.0); Immature Platelet Fraction Pct 3.5 % (1.0-7.0); Mean Corpuscular HGB Conc 34.4 g/dL (32-36); Mean Corpuscular Hemoglobin 32.3 pg (27.0-31.0); Mean Corpuscular Volume 93.7 fL (78.0-102.0); Mean Platelet Volume 10.1 fl (9.2-11.8); Platelet Count Result 100 K/mm3 (150-420); Red Blood Count 4.31 M/mm3 (4.20-5.40); Red Cell Distribution Width 15.2 % (11.6-14.4); White Blood Count 3.6 K/mm3 (4.8-10.8)
[2024-01-13 04:18] LABS: Bacteria Urine Trace /hpf; Mucus Urine Few /lpf; RBC Urine 0-2 /hpf (0-2); Squamous Epithelial Cell Urine Moderate /hpf (Few); WBC Urine 0-3 /hpf (0-3)
[2024-01-13 04:24] LABS: INR 1.1; Partial Thromboplastin Time 26.1 Sec (23.9-30.70); Prothrombin Time 11.5 Seconds (9.50-12.1)
[2024-01-13 04:26] LABS: Alanine Aminotransferase 46 U/L (14-59); Albumin Level 3.5 g/dL (3.4-5.0); Alkaline Phosphatase 99 U/L (46-116); Anion Gap 8 mmol/L (4-12); Aspartate Amino Transferase 63 U/L (15-37); Blood Urea Nitrogen 13 mg/dL (7-18); Calcium 9.1 mg/dL (8.5-10.1); Carbon Dioxide 29 mmol/L (21-32); Chloride 102 mmol/L (98-108); Estimated CRCL calculation 73 ml/min; Estimated Glomerular Filt Rate > 60; Glucose 72 mg/dL (70-99); Lipase 84 U/L (16-77); Osmolality Calculated 287 mOsm/kg (285-295); Potassium 3.5 mmol/L (3.5-5.1); Sodium 139 mmol/L (136-145); Total Protein 7.9 g/dL (6.4-8.2)
[2024-01-13 04:28] LABS: Band Neutrophils Percent 0 % (0-6); Basophils Absolute Manual 0.03 K/mm3 (0-0.1); Basophils Percent Manual 1 % (0-1); Eosinophils Percent Manual 0 % (1-6); Lymphocytes Absolute Manual 1.11 K/mm3 (1.1-4.5); Lymphocytes Percent Manual 31 % (18-44); Monocytes Absolute Manual 0.32 K/mm3 (0.1-0.90); Monocytes Percent Manual 9 % (3-9); Neutrophils Absolute Manual 2.12 K/mm3 (1.7-7.2); Neutrophils Percent Manual 59 % (46-73); Platelet Estimate Adequate (Adequate)
[2024-01-13 04:31] LABS: Lactic Acid Reflex 1.8 mmol/L (0.4-2.0)
[2024-01-13 05:05] VITALS: BP 118/86; PULSE 88; RESP 20; O2SAT 99
[2024-01-13 06:00] VITALS: BP 121/84; PULSE 80; RESP 24; O2SAT 95
--- NOTE | 2024-01-15 14:13 | PC.NURSE ---
preliminary blood cultures x2 reviewed. no growth to date.
--- NOTE | 2024-01-19 12:10 | PC.NURSE ---
FINAL BLOOD CULTURE RESULTS X2: NO GROWTH AFTER 5 DAYS.
== END 2024-01-13 07:15 | disposition home or self-care (01) ==
PROVIDERS: Emergency Provider Emergency Medicine
DX: K52.9 Noninfective gastroenteritis and colitis, unspecified (principal); I10 Essential (primary) hypertension
CPT/HCPCS: 36415; 74177; 80053; 81001; 83605; 83690; 85025; 85055; 85610; 85730; 87040; 96361; 96374; 96375; 99284; J2270; J2405; J2470; J7030; Q9967

== ENCOUNTER 2024-01-27 18:34 | Emergency (ER) | payer SELFPAY ==
[2024-01-27 18:41] VITALS: BP 144/119; PULSE 99; RESP 20; TEMP 36.8; O2SAT 99
[2024-01-27 18:42] VITALS: BP 166/113
--- NOTE | 2024-01-27 18:42 | ED.BACK ---
HPI - Back Pain/Injury General Chief Complaint: Back Pain/Injury Stated Complaint: upper respiratory complaints Time Seen by Provider: 01/27/24 18:41 Source: patient Mode of arrival: ambulatory Limitations: no limitations History of Present Illness HPI Narrative: 48 YEARS OLD WHITE FEMALE DROVE HERSELF TO THE EMERGENCY ROOM COMPLAINING OF ACHES ALL OVER, BACK PAIN, HAND PAIN FOR YEARS, START WORKING OVER THE LAST 2 WEEKS INCLUDING REPETITIVE MOVEMENT OF THE HANDS. 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 UNABLE TO AFFORD TO FIX IT. HER MAIN COMPLAIN TODAY IS HAND PAIN AND NUMBNESS. SHE DENIES ANY FEVER, CHILLS, NAUSEA, VOMITING, DIARRHEA, CONSTIPATION, SHORTNESS OF BREATH, CHEST PAIN. PATIENT IS TELLING ME THAT SHE BEEN HOMELESS FOR THE LAST 2 YEARS, SHE DRINKS ALCOHOL DAILY, USES MARIJUANA DAILY. DENIES CIGARETTE SMOKING Related Data Allergies Allergy/AdvReac Type Severity Reaction Status Date / Time No Known Allergies Allergy Verified 01/27/24 18:39 Review of Systems Review of Systems: All systems reviewed & are unremarkable except as noted in HPI and below PMFSH Past Medical History Medical History ETOH abuse Hypertension Social History Social History Smoking status: Never smoker Second hand tobacco smoke exposure: No Alcohol intake: current Drinks per week: 30 Substance use: current Substance use type: marijuana Other substance usage details: Last drink was at 6am this morning Do You Feel Safe in your Home?: No Lack of Transportation: YES Lack of Food: Sometimes True Current Housing: I Do Not Have Housing Concerned About Future Housing: YES Difficulty Paying Gas/Electric Bills: YES Difficulty Paying for Meds: YES Currently Unemployed: YES Education: High School Diploma/GED Difficulty w/ Childcare or Family Care: No Spiritual care concerns: No Exam Narrative: GENERAL APPEARANCE: WELL-DEVELOPED, WELL-NOURISHED SKIN: NORMAL COLOR HEAD: NORMOCEPHALIC, NONTRAUMATIC EYES: CLEAR CONJUNCTIVA ENT: OROPHARYNX NORMAL, EARS NORMAL, NOSE NORMAL NECK: SUPPLE, NONTENDER CHEST AND RESPIRATORY: AIRWAY PATENT, NO RESPIRATORY DISTRESS, NO ACCESSORY MUSCLE USE HEART: REGULAR RATE/RHYTHM ABDOMEN: SOFT, NONTENDER, NO ORGANOMEGALY, QUIET BOWEL SOUNDS VASCULAR: NORMAL PERIPHERAL PULSES, NORMAL CAPILLARY REFILL. MUSCULOSKELETAL: SLIGHT DIFFUSE TENDERNESS OF THE WRIST MORE ON THE LEFT SIDE, POSITIVE PHALEN'S TEST NEUROLOGIC: ALERT AND ORIENTED ?3 Course Vital Signs Vital signs: Vital Signs Temperature 36.8 C 01/27/24 18:41 Pulse Rate 99 01/27/24 18:41 Respiratory Rate 20 01/27/24 18:41 Blood Pressure 144/119 H 01/27/24 18:41 Pulse Oximetry 99 01/27/24 18:41 Temperature 36.8 C 01/27/24 18:41 Pulse Rate 99 01/27/24 18:41 Respiratory Rate 20 01/27/24 18:41 Blood Pressure 144/119 H 01/27/24 18:41 Pulse Oximetry 99 01/27/24 18:41 MDM - Back Pain/Injury MDM Narrative Medical decision making narrative: PATIENT PRESENTS WITH PAIN AT THE WRIST AND HANDS FOR A WHILE, GOT WORSE AFTER START WORKING IN THE LAST 2 WEEKS REQUIRING REPETITIVE MOVEMENT OF THE HANDS. NO BLOOD WORKUP OR IMAGING ARE REQUIRED AT THIS TIME PHYSICAL EXAMINATION POSITIVE FOR PHALEN'S TEST PATIENT WAS ADVISED TO TAKE ANTI-INFLAMMATORY MEDICATION AND WAS GIVEN 2 WRIST SPLINTS BEFORE DISCHARGE Differential Diagnosis Differential diagnosis: Likely other ( CARPAL TUNNEL SYNDROME, ANXIETY, DEPRESSION, HOMELESSNESS) Critical Care Time Critical Care Time
[2024-01-27] MEDS: KETOROLAC (*BKC) 60 MG/2 ML VIAL IM (19:12)
[2024-01-27 19:28] VITALS: BP 130/78; PULSE 80; RESP 18; TEMP 36.6; O2SAT 99
== END 2024-01-27 19:28 | disposition home or self-care (01) ==
LOC: CHSED 19:06
PROVIDERS: Emergency Provider Emergency Medicine
DX: G56.03 Carpal tunnel syndrome, bilateral upper limbs (principal); I10 Essential (primary) hypertension
CPT/HCPCS: 29125; 96372; 99283; J1885

== ENCOUNTER 2024-02-03 06:41 | Emergency (ER) | payer SELFPAY ==
[2024-02-03] VITALS (15 sets, daily range): BP systolic 140–176; BP diastolic 73–117; PULSE 75–79; RESP 18–20; TEMP 36.6; O2SAT 96–100
[2024-02-03 06:51] LABS: Glucose Point of Care 101 mg/dl (65-105)
--- NOTE | 2024-02-03 07:43 | ED_ITS ---
HPI - General Adult General Chief complaint: Abdominal Pain Stated complaint: nausea/vomiting Source: patient Mode of arrival: ambulatory Limitations: no limitations History of Present Illness HPI narrative: Patient is a 48-year-old female known alcoholic with cirrhosis. She is here with aches and pains all over her body and has not had a drink in 6 hours. She is not having DTs at this time. She is not shaking. She just generally does not feel well. She is typically on many medications but she is not compliant. She does not want to stop drinking alcohol at this time. She gets recurrent pancreatitis. Onset (ago): day(s) (1) Location: upper extremity ( generalized) and lower extremity ( Generalized) Radiation: non-radiation Severity: moderate Severity scale (1-10): 4 Quality: aching Pain Consistency: constant Relieving factors: none Exacerbating factors: none Associated symptoms: malaise, nausea/vomiting and weakness Treatments prior to arrival: none Related Data Home Medications Medication Instructions Recorded Confirmed gabapentin 300 mg capsule 300 mg PO TID 02/03/24 02/03/24 Allergies Allergy/AdvReac Type Severity Reaction Status Date / Time No Known Allergies Allergy Verified 01/27/24 18:39 Review of Systems Review of Systems: All systems reviewed & are unremarkable except as noted in HPI and below Constitutional: Constitutional: Reports no additional constitutional complaints Eyes: Eyes: Reports no additional eye complaints ENT: Reports system reviewed and no additional complaints, except as docume nted Cardiovascular: Cardiovascular: Reports no additional cardiovascular complaints Respiratory: Respiratory: Reports no additional respiratory complaints Gastrointestinal: Gastrointestinal: Reports no additional gastrointestinal complaints Genitourinary: Genitourinary: Reports no additional female genitourinary complaints Musculoskeletal: Musculoskeletal: Reports no additional musculoskeletal complaints Integumentary/Breasts: Skin/Breast: Reports system reviewed and no additional complaints, except as docu Neurologic: Reports system reviewed and no additional complaints, except as documented Psychiatric: Psychiatric: Reports no additional psychiatric complaints Endocrine: Endocrine: Reports no additional endocrine complaints Hematologic/Lymphatic: Hematologic/Lymphatic: Reports no additional hematologic/lymphatic complaints Allergic/Immunologic: Allergic/Immunologic: Reports no additional allergic/immunologic complaints PMFSH Past Medical History Medical History ETOH abuse Hypertension Social History Social History Smoking status: Never smoker Second hand tobacco smoke exposure: No Alcohol intake: current Drinks per week: 30 Substance use: current Substance use type: marijuana Other substance usage details: Last drink was at 6am this morning Do You Feel Safe in your Home?: No Lack of Transportation: YES Lack of Food: Sometimes True Current Housing: I Do Not Have Housing Concerned About Future Housing: YES Difficulty Paying Gas/Electric Bills: YES Difficulty Paying for Meds: YES Currently Unemployed: YES Education: High School Diploma/GED Difficulty w/ Childcare or Family Care: No Spiritual care concerns: No Exam Const: General: alert Nutritional Appearance: well nourished Orientation/consciousness: patient oriented x3 Limitations: no limitations HENMT: Head: normal to inspection Ears: external ears normal Face/Nose/S inus: Normal external nose present Eyes: Conjunctivae: conjunctivae normal Pupils: Equal, round and reactive pupils present EOM: EOMs intact bilaterally Neck: Neck: normal visual inspection Chest: Chest palpation & inspection: normal inspection of the chest Resp: Effort & Inspection: normal respiratory effort and not labored Auscultation: clear to auscultation bilaterally and no crackles Cardio: Rate: regular rate Rhythm: regular rhythm Heart sounds: no murmurs GI: Inspection: non-distended GI Palp: Yes Soft to palpation, No Tenderness to palpation present (GI) and No Guarding due to palpation present (GI) Auscultation: normal bowel sounds : General: Yes bladder normal to palpation Back/Spine/Pelvis: Back: no CVA tenderness Skin: General skin exam: normal color Rashes: no rashes Wounds: no wounds Neuro: General: patient oriented x3 Cranial nerves: Yes Nystagmus not present Speech: normal speech Extrem: General: normal to inspection Psych: Mental Status: mental status grossly normal Affect: No normal affect and Sad affect present Attitude: cooperative Course Vital Signs Vital signs: Vital Signs Temperature 36.6 C 02/03/24 06:41 Pulse Rate 77 02/03/24 06:41 Respiratory Rate 18 02/03/24 06:41 Blood Pressure 175/101 H 02/03/24 06:41 Pulse Oximetry 100 02/03/24 06:41 Oxygen Delivery Room Air 02/03/24 06:41 Temperature 36.6 C 02/03/24 06:41 Pulse Rate 77 02/03/24 06:41 Respiratory Rate 18 02/03/24 06:41 Blood Pressure 175/101 H 02/03/24 06:41 Pulse Oximetry 100 02/03/24 06:41 Oxygen Delivery Room Air 02/03/24 06:41 Medical Decision Making MDM Narrative Medical decision making narrative: patient is a 48-year-old female with alcoholism. She is here with nausea vomit ing and generalized not feeling well. We will do laboratory workup at this time. We will give her Zofran. No major abdominal pain during her hospitalization in the ER. She has had multiple scans done and no acute findings in the past. No need for CT scan at this exact time. Laboratory studies are stable. Repeat blood pressure is more normal ranges on repeat. Vital Signs Vital Signs: Vital Signs Temperature 36.6 C 02/03/24 06:41 Pulse Rate 77 02/03/24 06:41 Respiratory Rate 18 02/03/24 06:41 Blood Pressure 175/101 H 02/03/24 06:41 Pulse Oximetry 100 02/03/24 06:41 Oxygen Delivery Room Air 02/03/24 06:41 Temperature 36.6 C 02/03/24 06:41 Pulse Rate 77 02/03/24 06:41 Respiratory Rate 18 02/03/24 06:41 Blood Pressure 175/101 H 02/03/24 06:41 Pulse Oximetry 100 02/03/24 06:41 Oxygen Delivery Room Air 02/03/24 06:41 Lab Data Lab results reviewed: Yes I reviewed the patient's lab results. 02/03/24 07:59 02/03/24 07:59 Labs: Lab Results 02/03/24 02/03/24 Range/Units 06:49 07:59 WBC 5.6 (4.8-10.8) K/mm3 RBC 4.39 (4.20-5.40) M/mm3 Hgb 14.8 (12.0-15.0) g/dL Hct 42.2 (35.0-49.0) % MCV 96.1 (78.0-102.0) fL MCH 33.7 H (27.0-31.0) pg MCHC 35.1 (32-36) g/dL RDW 13.9 (11.6-14.4) % Plt Count 135 L (150-420) K/mm3 MPV 9.6 (9.2-11.8) fl Immature Gran % (Auto) 0.4 H (0.0-0.0) % Neut % (Auto) 72.6 H (50.0-70.0) % Lymph % (Auto) 16.7 L (18.0-42.0) % [place] % (Auto) 9.2 (2.0-11.0) % Eos % (Auto) 0.7 L (1.0-6.0) % Baso % (Auto) 0.4 (0.0-1.0) % Lymph # (Auto) 0.94 L (1.10-4.50) K/mm3 [place] # (Auto) 0.52 (0.10-0.90) K/mm3 Eos # (Auto) 0.04 (0.02-0.50) K/mm3 Baso # (Auto) 0.02 (0.00-0.10) K/mm3 Abs Immat Gran (auto) 0.02 H (0.00-0.00) K/mm3 Absolute Neuts (auto) 4.09 (1.70-7.20) K/mm3 Absolute Nucleated RBC 0.00 (0.00-0.00) K/mm3 Nucleated RBC % 0.0 (0-0.0) % Sodium 141 (136-145) mmol/L Potassium 3.1 L (3.5-5.1) mmol/L Chloride 103 (98-108) mmol/L Carbon Dioxide 23 (21-32) mmol/L Anion Gap 15 H (4-12) mmol/L BUN 9 (7-18) mg/dL Creatinine 0.55 (0.55-1.02) mg/dL Estim Creat Clear Calc 93 ml/min Estimated GFR > 60 (59 - ) Glucose 107 H (70-99) mg/dL POC Capillary Glucose 101 (65-105) mg/dl Calculated Osmolality 290 (285-295) mOsm/kg Lactic Acid 1.6 (0.4-2.0) mmol/L Calcium 9.4 (8.5-10.1) mg/dL Magnesium 1.7 L (1.8-2.4) mg/dL Total Bilirubin 1.1 H (0.00-1.00) mg/dL AST 38 H (15-37) U/L ALT 34 (14-59) U/L Alkaline Phosphatase 93 (46-116) U/L Total Creatine Kinase 44 (26-192) U/L Total Protein 7.9 (6.4-8.2) g/dL Albumin 3.6 (3.4-5.0) g/dL Lipase 72 (16-77) U/L Discharge Plan Discharge Clinical Impression: Alcoholism, Hypomagnesemia, Hypokalemia Patient Disposition: Home, Self-Care Condition: Stable Instructions: Abuse of Alcohol (DC) Additional Instructions: Please follow-up with the primary doctor in the next week. I highly suggest a primary doctor visit and get back on all your medications required at this time. Monitor your alcohol consumption and wean off slowly. There is detox situations that you can work out with her primary doctor. There is medication for alcohol abstinence. Prescriptions: No Action gabapentin 300 mg capsule 300 mg PO TID Follow-up/Referrals: UNKNOWN,DOCTOR [Primary Care Provider] - Time of Disposition: 08:47
[2024-02-03] MEDS: ONDANSETRON HCL ODT 4 MG TABLET PO (07:46)
[2024-02-03 08:06] LABS: Basophils Absolute Auto 0.02 K/mm3 (0.00-0.10); Basophils Percent Auto 0.4 % (0.0-1.0); Eosinophils Absolute Auto 0.04 K/mm3 (0.02-0.50); Eosinophils Percent Auto 0.7 % (1.0-6.0); Hematocrit 42.2 % (35.0-49.0); Hemoglobin 14.8 g/dL (12.0-15.0); Immature Granulocyte Absolute 0.02 K/mm3 (0.00-0.00); Immature Granulocyte Percent A 0.4 % (0.0-0.0); Lymphocytes Absolute Auto 0.94 K/mm3 (1.10-4.50); Lymphocytes Percent Auto 16.7 % (18.0-42.0); Mean Corpuscular HGB Conc 35.1 g/dL (32-36); Mean Corpuscular Hemoglobin 33.7 pg (27.0-31.0); Mean Corpuscular Volume 96.1 fL (78.0-102.0); Mean Platelet Volume 9.6 fl (9.2-11.8); Monocytes Absolute Auto 0.52 K/mm3 (0.10-0.90); Monocytes Percent Auto 9.2 % (2.0-11.0); Neutrophils Absolute Auto 4.09 K/mm3 (1.70-7.20); Neutrophils Percent Auto 72.6 % (50.0-70.0); Platelet Count Result 135 K/mm3 (150-420); Red Blood Count 4.39 M/mm3 (4.20-5.40); Red Cell Distribution Width 13.9 % (11.6-14.4); White Blood Count 5.6 K/mm3 (4.8-10.8)
[2024-02-03 08:22] LABS: Alanine Aminotransferase 34 U/L (14-59); Albumin Level 3.6 g/dL (3.4-5.0); Alkaline Phosphatase 93 U/L (46-116); Anion Gap 15 mmol/L (4-12); Aspartate Amino Transferase 38 U/L (15-37); Bilirubin,Total 1.1 mg/dL (0.00-1.00); Blood Urea Nitrogen 9 mg/dL (7-18); Calcium 9.4 mg/dL (8.5-10.1); Carbon Dioxide 23 mmol/L (21-32); Chloride 103 mmol/L (98-108); Creatine Kinase 44 U/L (26-192); Estimated CRCL calculation 93 ml/min; Estimated Glomerular Filt Rate > 60; Glucose 107 mg/dL (70-99); Lipase 72 U/L (16-77); Magnesium 1.7 mg/dL (1.8-2.4); Osmolality Calculated 290 mOsm/kg (285-295); Potassium 3.1 mmol/L (3.5-5.1); Sodium 141 mmol/L (136-145); Total Protein 7.9 g/dL (6.4-8.2)
[2024-02-03 08:28] LABS: Lactic Acid Reflex 1.6 mmol/L (0.4-2.0)
[2024-02-03] MEDS: MAGNESIUM OXIDE 400 MG TABLET PO (08:48)
[2024-02-03] MEDS: POTASSIUM CHLORIDE 20 MEQ ER TABLET PO (08:48)
== END 2024-02-03 08:55 | disposition home or self-care (01) ==
PROVIDERS: Emergency Provider Emergency Medicine
DX: F10.20 Alcohol dependence, uncomplicated (principal); T51.0X1A Toxic effect of ethanol, accidental (unintentional), initial encounter; Y90.9 Presence of alcohol in blood, level not specified; E83.42 Hypomagnesemia; E87.6 Hypokalemia; K70.30 Alcoholic cirrhosis of liver without ascites; I10 Essential (primary) hypertension; Z91.148 Patient's other noncompliance with medication regimen for other reason
CPT/HCPCS: 36415; 80053; 82550; 82948; 83605; 83690; 83735; 85025; 99283; A9270

== ENCOUNTER 2024-02-21 09:53 | Outpatient (CLI) | payer MEDICAID, SELFPAY ==
--- NOTE | ~2024-02-21 | XR_ITS ---
XR hip BI 2V w AP pelvis Ordering provider: Ruma Meade, History: . B/L HIP PAIN . Comparison: None. FINDINGS: BONES: No acute fracture or dislocation. HIP JOINT SPACES: Normal. SACROILIAC JOINT SPACES/LUMBAR SPINE: The sacroiliac joint spaces are normal. Normal visualized lower lumbar spine. PUBIC SYMPHYSIS: Normal. SOFT TISSUES: Normal. IMPRESSION: No acute osseous abnormality of the bilateral hips and pelvis. Reviewed, dictated and finalized at location A. [employer] DELIVERY MANAGEMENT CONSULTANT
== END 2024-02-21 09:54 | disposition home or self-care (01) ==
LOC: CHSIMG 09:55
PROVIDERS: PCP Family Medicine; Visit Provider Family Medicine
DX: M25.551 Pain in right hip (principal); M25.552 Pain in left hip
CPT/HCPCS: 73521

== ENCOUNTER 2024-02-26 02:43 | Emergency (ER) | payer MEDICAID, SELFPAY ==
[2024-02-26 02:50] VITALS: BP 129/86; PULSE 88; RESP 18; TEMP 36.8; O2SAT 97
--- NOTE | 2024-02-26 03:12 | ED.UPPEXIN ---
HPI - Extremity Injury (Upper) General Chief Complaint: Extremity Injury, Upper Stated Complaint: Problem with Hands Time Seen by Provider: 02/26/24 03:06 Related Data Home Medications Medication Instructions Recorded Confirmed gabapentin 300 mg capsule 400 mg PO TID 02/03/24 02/26/24 Zoloft 5 mg DAILY 02/26/24 02/26/24 nabumetone 500 mg TID 02/26/24 02/26/24 Allergies Allergy/AdvReac Type Severity Reaction Status Date / Time No Known Allergies Allergy Verified 01/27/24 18:39 [facility] Past Medical History Medical History ETOH abuse Hypertension Social History Social History Smoking status: Never smoker Second hand tobacco smoke exposure: No Alcohol intake: current Drinks per week: 30 Substance use: current Substance use type: marijuana Other substance usage details: Last drink was at 6am this morning Do You Feel Safe in your Home?: No Lack of Transportation: YES Lack of Food: Sometimes True Current Housing: I Do Not Have Housing Concerned About Future Housing: YES Difficulty Paying Gas/Electric Bills: YES Difficulty Paying for Meds: YES Currently Unemployed: YES Education: High School Diploma/GED Difficulty w/ Childcare or Family Care: No Spiritual care concerns: No Course Vital Signs Vital signs: Vital Signs Temperature 36.8 C 02/26/24 02:50 Pulse Rate 88 02/26/24 02:50 Respiratory Rate 18 02/26/24 02:50 Blood Pressure 129/86 02/26/24 02:50 Pulse Oximetry 97 02/26/24 02:50 Oxygen Delivery Room Air 02/26/24 02:50 Temperature 36.8 C 02/26/24 02:50 Pulse Rate 88 02/26/24 02:50 Respiratory Rate 18 02/26/24 02:50 Blood Pressure 129/86 02/26/24 02:50 Pulse Oximetry 97 02/26/24 02:50 Oxygen Delivery Room Air 02/26/24 02:50 Discharge Plan Discharge Clinical Impression: Carpal tunnel syndrome Patient Disposition: Home, Self-Care Condition: Stable Instructions: Antibiotic Form, Carpal Tunnel Syndrome (DC) Additional Instructions: take medicine as prescribed and follow-up with primary Prescriptions: New tramadol 50 mg tablet 50 mg PO Q6H PRN (Reason: pain) Qty: 20 0RF No Action gabapentin 300 mg capsule 400 mg PO TID ondansetron 4 mg tablet,disintegrating 4 mg PO Q8H PRN (Reason: nausea and vomiting) Qty: 30 0RF Zoloft 5 mg DAILY nabumetone 500 mg TID Follow-up/Referrals: Deshaun,Ruma Aden MD [Primary Care Provider] - Time of Disposition: 03:20
--- NOTE | 2024-02-26 03:13 | ED.UPPEXIN ---
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 Patient is currently taking medication with minimal relief patient states that she decided against any kind of surgery to correct her carpal tunnel. complaint: injury to: left and right Onset (ago): month(s) Severity: moderate Related Data Home Medications Medication Instructions Recorded Confirmed gabapentin 300 mg capsule 400 mg PO TID 02/03/24 02/26/24 Zoloft 5 mg DAILY 02/26/24 02/26/24 nabumetone 500 mg TID 02/26/24 02/26/24 Allergies Allergy/AdvReac Type Severity Reaction Status Date / Time No Known Allergies Allergy Verified 01/27/24 18:39 Review of Systems Review of Systems: All systems reviewed & are unremarkable except as noted in HPI and below PMFSH Past Medical History Medical History ETOH abuse Hypertension Social History Social History Smoking status: Never smoker Second hand tobacco smoke exposure: No Alcohol intake: current Drinks per week: 30 Substance use: current Substance use type: marijuana Other substance usage details: Last drink was at 6am this morning Do You Feel Safe in your Home?: No Lack of Transportation: YES Lack of Food: Sometimes True Current Housing: I Do Not Have Housing Concerned About Future Housing: YES Difficulty Paying Gas/Electric Bills: YES Difficulty Paying for Meds: YES Currently Unemployed: YES Education: High School Diploma/GED Difficulty w/ Childcare or Family Care: No Spiritual care concerns: No Exam Const: General: healthy appearing Nutritional Appearance: well nourished Orientation/consciousness: patient oriented x3 Limitations: no limitations Resp: Effort & Inspection: normal respiratory effort Auscultation: clear to auscultation bilaterally GI: GI Palp: Yes Soft to palpation Auscultation: normal bowel sounds Skin: General skin exam: normal color Rashes: no rashes Neuro: General: patient oriented x3 and moves all extremities Extrem: Other: Bilateral hand pain with numbness Course Course Emergency Course: patient received 60mg IM Toradol for pain relief and prescription sent to patient's pharmacy. Vital Signs Vital signs: Vital Signs Temperature 36.8 C 02/26/24 02:50 Pulse Rate 88 02/26/24 02:50 Respiratory Rate 18 02/26/24 02:50 Blood Pressure 129/86 02/26/24 02:50 Pulse Oximetry 97 02/26/24 02:50 Oxygen Delivery Room Air 02/26/24 02:50 Temperature 36.8 C 02/26/24 02:50 Pulse Rate 88 02/26/24 02:50 Respiratory Rate 18 02/26/24 02:50 Blood Pressure 129/86 02/26/24 02:50 Pulse Oximetry 97 02/26/24 02:50 Oxygen Delivery Room Air 02/26/24 02:50 Critical Care Time Critical Care Time Critical Care Time: No Discharge Plan Discharge Clinical Impression: Carpal tunnel syndrome Patient Disposition: Home, Self-Care Condition: Stable Instructions: Antibiotic Form, Carpal Tunnel Syndrome (DC) Additional Instructions: take medicine as prescribed and follow-up with primary Prescriptions: New tramadol 50 mg tablet 50 mg PO Q6H PRN (Reason: pain) Qty: 20 0RF No Action gabapentin 300 mg capsule 400 mg PO TID ondansetron 4 mg tablet,disintegrating 4 mg PO Q8H PRN (Reason: nausea and vomiting) Qty: 30 0RF Zoloft 5 mg DAILY nabumetone 500 mg TID Follow-up/Referrals: Deshaun,Ruma Aden MD [Primary Care Provider] - Time of Disposition: 03:20
[2024-02-26] MEDS: KETOROLAC (*BKC) 60 MG/2 ML VIAL IM (03:20)
== END 2024-02-26 03:44 | disposition home or self-care (01) ==
LOC: CHSED 03:24
PROVIDERS: Emergency Provider Emergency Medicine; PCP Family Medicine
DX: G56.03 Carpal tunnel syndrome, bilateral upper limbs (principal); I10 Essential (primary) hypertension; Z79.899 Other long term (current) drug therapy
CPT/HCPCS: 96372; 99283; J1885

== ENCOUNTER 2024-03-21 08:27 | Outpatient (CLI) | payer MEDICAID, SELFPAY ==
--- NOTE | ~2024-03-21 | CT_ITS ---
CT of the Abdomen and Pelvis: Indication: Abdominal pain Technique: 2.5 mm axial scans were obtained through the abdomen and pelvis following intravenous adm inistration of 100 cc of Omnipaque 350. Dose reduction technique was used on this scan by utilizing a utomated exposure control and iterative reconstruction technique. The dose-length product (DLP) was 4 01.97 mGy-cm. COMPARISON: 01/13/2024 Findings: Scans through the lung bases demonstrates stable 6 mm right basilar pulmonary nodule. Diffusely nodular contour of liver is compatible cirrhosis. No focal mass or biliary dilatation seen. Calcified gallstones are present. The spleen, pancreas, adrenals and kidneys are within normal limit s. No evidence of aortic aneurysm. No lymphadenopathy. No bowel obstruction or bowel wall thickening. There is no evidence to suggest acute appendicitis. Images through the pelvis were performed. Urinary bladder unremarkable. No pelvic mass seen. Status p ost hysterectomy. No ascites. Impression: Cirrhosis of the liver. Cholelithiasis. Reviewed, dictated and finalized at location . GY OPERATIONS VICE PRESIDENT Impression: Cirrhosis of the liver. Cholelithiasis.
--- NOTE | ~2024-03-21 | XR_ITS ---
XR knee RT 3V Ordering provider: Bladimir Crowder, History: . RIGHT KNEE PAIN ANTERIOR,FREQUENT FALLS . Comparison: None. FINDINGS: BONES: No acute fracture or dislocation. JOINT SPACES: Normal. SOFT TISSUES: Normal. IMPRESSION: No acute osseous abnormality right knee. Reviewed, dictated and finalized at location A. ERING PRESS OPERATOR
== END 2024-03-21 08:28 | disposition home or self-care (01) ==
LOC: CHSIMG 08:30
PROVIDERS: PCP Family Medicine; Visit Provider Family Medicine
DX: M25.561 Pain in right knee (principal); R10.9 Unspecified abdominal pain; K76.0 Fatty (change of) liver, not elsewhere classified; K80.20 Calculus of gallbladder without cholecystitis without obstruction
CPT/HCPCS: 73562; 74177; Q9967

== ENCOUNTER 2024-03-30 14:20 | Outpatient (CLI) | payer MEDICAID, SELFPAY ==
[2024-03-30 15:44] LABS: SARS-CoV-2 RNA PCR Positive (Negative)
== END 2024-03-30 14:21 | disposition home or self-care (01) ==
LOC: CHSLAB 14:23
PROVIDERS: Visit Provider Family Medicine
DX: R05.9 Cough, unspecified (principal); Z20.822 Contact with and (suspected) exposure to COVID-19
CPT/HCPCS: 87635

== ENCOUNTER 2024-04-21 02:51 | Emergency (ER) | payer OTHER, SELFPAY ==
[2024-04-21 02:51] VITALS: BP 126/89; PULSE 90; RESP 18; TEMP 37; O2SAT 95
--- NOTE | 2024-04-21 03:04 | ED.BACK ---
HPI - Back Pain/Injury General Chief Complaint: Back Pain/Injury Stated Complaint: left lower back Time Seen by Provider: 04/21/24 03:04 Source: patient Mode of arrival: ambulatory Limitations: no limitations History of Present Illness HPI Narrative: 48 years old white female drove herself to the emergency room complaining of left lower back pain radiating to the left buttocks and left upper thigh started few hours prior to arrival to the emergency room. History of chronic lower back pain for years with intermittent flare up. . Patient denies bowel dysfunction, bladder dysfunction, altered sensation, focal weakness, or saddle numbness, Related Data Home Medications ?Medication ?Instructions ?Recorded ?Confirmed ?Last Taken ?Type gabapentin 300 mg capsule 400 mg PO TID 02/03/24 02/26/24 Unknown History Zoloft 5 mg DAILY 02/26/24 02/26/24 Unknown History nabumetone 500 mg TID 02/26/24 02/26/24 Unknown History Allergies Allergy/AdvReac Type Severity Reaction Status Date / Time No Known Allergies Allergy Verified 04/21/24 03:00 Review of Systems Review of Systems: All systems reviewed & are unremarkable except as noted in HPI and below PMFSH Past Medical History Medical History Hypertension ETOH abuse Social History Social History Smoking status: Never smoker Second hand tobacco smoke exposure: No Alcohol intake: current Drinks per week: 30 Substance use: current Substance use type: marijuana Other substance usage details: Last drink was at 6am this morning Do You Feel Safe in your Home?: No Lack of Transportation: YES Lack of Food: Sometimes True Current Housing: I Do Not Have Housing Concerned About Future Housing: YES Difficulty Paying Gas/Electric Bills: YES Difficulty Paying for Meds: YES Currently Unemployed: YES Education: High School Diploma/GED Difficulty w/ Childcare or Family Care: No Spiritual care concerns: No Exam Narrative: General appearance: Well-developed, well-nourished Skin: Normal color Chest and respiratory: Airway patent, no respiratory distress, no accessory muscle use Heart: Regular rate/rhythm Abdomen: Soft, nontender, no organomegaly, quiet bowel sounds Vascular: Normal peripheral pulses, normal capillary refill. 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, no gross motor deficit Course Vital Signs Vital signs: Vital Signs Temperature 37.0 C 04/21/24 02:51 Pulse Rate 90 04/21/24 02:51 Respiratory Rate 18 04/21/24 02:51 Blood Pressure 126/89 04/21/24 02:51 Pulse Oximetry 95 04/21/24 02:51 Oxygen Delivery Room Air 04/21/24 02:51 Temperature 37.0 C 04/21/24 02:51 Pulse Rate 90 04/21/24 02:51 Respiratory Rate 18 04/21/24 02:51 Blood Pressure 126/89 04/21/24 02:51 Pulse Oximetry 95 04/21/24 02:51 Oxygen Delivery Room Air 04/21/24 02:51 Discharge Plan Discharge Clinical Impression: Low back pain radiating to left lower extremity Patient Disposition: Home, Self-Care Condition: Stable Instructions: Sciatica (ED), Acute Low Back Pain (ED) Additional Instructions: Return if symptoms are worsening , call your family physician for appointment, take Tylenol as as needed for aches and pain, continue home medications. Patient Language: Azeri Prescriptions: New methylprednisolone [Medrol (Leo)] 4 mg tablets,dose pack See Rx Instructions PO .COMPLEX Qty: 21 0RF Rx Instructions: orally per package directions cyclobenzaprine 10 mg tablet 10 mg PO TID PRN (Reason: muscle spasm) Qty: 20 0RF No Action gabapentin 300 mg capsule 400 mg PO TID ondansetron 4 mg tablet,disintegrating 4 mg PO Q8H PRN (Reason: nausea and vomiting) Qty: 30 0RF Zoloft 5 mg DAILY nabumetone 500 mg TID tramadol 50 mg tablet 50 mg PO Q6H PRN (Reason: pain) Qty: 20 0RF Follow-up/Referrals: Laura Crowder RN [Primary Care Provider] -
--- NOTE | 2024-04-21 03:15 | PC.NURSE ---
RESTING ON STRETCHER. CALL LIGHT IN REACH
[2024-04-21] MEDS: IBUPROFEN 600 MG TABLET PO (03:31)
[2024-04-21] MEDS: MORPHINE SULFATE INJ (*CRX) 10 MG/ML AMP 6 MG IM (03:31)
[2024-04-21] MEDS: ONDANSETRON HCL ODT 4 MG TABLET PO (03:31)
[2024-04-21 04:14] VITALS: BP 138/91; PULSE 75; RESP 16; TEMP 36.7; O2SAT 97
== END 2024-04-21 04:17 | disposition home or self-care (01) ==
PROVIDERS: Emergency Provider Emergency Medicine
DX: M54.50 Low back pain, unspecified (principal); F12.90 Cannabis use, unspecified, uncomplicated
CPT/HCPCS: 96372; 99283; A9270; J2270

== ENCOUNTER 2024-05-12 05:09 | Emergency (ER) | payer OTHER, SELFPAY ==
[2024-05-12 05:11] VITALS: BP 151/101; PULSE 72; RESP 18; TEMP 36.3; O2SAT 99
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
--- OUTSIDE RECORDS SUMMARY | 2024-05-12 05:11 | XMS_ITS | Referral Summary ---
Author Organization [facility] Address [address] [place] [address] Care Team Providers Care Cane Flume Watcher Name Role Phone Bladimir Crowder MD Primary Care Provider Encounters Date Type Department Care Team Description 05/08/2024 Telephone [facility] Medical [facility] Egnyte [facility] [id number] [place] [phone] Shara Yates, 05/07/2024 Documentation [facility] [address], [place] [phone] Latrice Dumont 04/25/2024 10:50 AM MOTORCYCLE SERVICE TECHNICIAN - 05/07/2024 3:39 PM MOTORCYCLE SERVICE TECHNICIAN Hospital Encounter [facility] [address] [place] [address] Maddie White MD Sargsyan, Narine, MD Sinha, Chandni, MD Abegunde, Veronica O., MD Nations, Matthew Austin, DO Alcohol withdrawal syndrome without complication (HCC) (Primary Dx); Unspecified mood disorder (HCC) Discharge Disposition: Discharge to home or self care 05/05/2024 Documentation [facility] [address], [place] [phone] Hilario Jana EValentín 05/03/2024 Documentation [facility] [address], [place] [phone] Hilario Jana EValentín 05/02/2024 Documentation [facility] [address] [phone] Latrice Dumont 05/01/2024 Documentation [facility] [address] [phone] Hilario, Jana Emmanuel 04/30/2024 Documentation [facility] [address], [place] [phone] Latrice Dumont 04/29/2024 Documentation [facility] [address], [place] [phone] Latrice Dumont 04/27/2024 [facility] Enrollment [facility] [address], [place] [phone] Hilario, Jana E. 04/25/2024 Documentation [facility] [address], [place] [phone] Hilario, Jana E. 04/25/2024 Documentation [facility] [address] [place] [address] Hilario, Jana E. 04/25/2024 8:30 AM MOTORCYCLE SERVICE TECHNICIAN Lab [address] [phone] 04/25/2024 10:30 AM MOTORCYCLE SERVICE TECHNICIAN Hospital Encounter [facility] [address] [place] [phone] Jesenia Mckeon MD 04/23/2024 Documentation [facility] [address] [place] [address] Latrice Dumont from Last 3 Months Allergies No known active allergies Medications gabapentin (NEURONTIN) 400 mg capsule Take 1 capsule (400 mg total) by mouth 3 (three) times a day 04/12/19 Active meloxicam (MOBIC) 15 mg tablet Take 1 tablet (15 mg total) by mouth daily Active prazosin (MINIPRESS) 2 mg capsule Take 1 capsule (2 mg total) by mouth nightly 30 capsule 05/07/19 25 2024 Active sertraline (ZOLOFT) 100 mg tablet Take 2 tablets (200 mg total) by mouth daily 60 tablet 05/08/19 25 2024 Active traZODone (DESYREL) 300 mg tablet Take 1 tablet (300 mg total) by mouth nightly 30 tablet 05/07/19 25 2024 Active mupirocin (BACTROBAN) 2 % ointment Apply topically 2 (two) times a day 22 g 05/07/19 25 2024 Active QUEtiapine (SEROquel) 25 mg tablet Take 1 tablet (25 mg total) by mouth 3 (three) times a day 90 tablet 05/07/[address] (PROTONIX) 40 mg EC tabletIndications :Treatment of Non-Bleeding Gastric Disorder Take 1 tablet (40 mg total) by mouth daily 30 tablet 05/08/19 25 2024 Active pancrelipase (CREON) 6,000 units of lipase capsuleIndication s:exocrine pancreatic insufficiency Take 1 capsule (6,000 units of lipase total) by mouth 3 (three) times a day 100 capsule 05/08/19 25 2024 Active ondansetron ODT (ZOFRAN-ODT) 4 mg disintegrating tablet Take 1 tablet (4 mg total) by mouth every 8 (eight) hours as needed for nausea or vomiting 20 tablet 01/17/20 23 2024 Discontinued(D uplicate order) prazosin (MINIPRESS) 1 mg capsule Take 3 capsules (3 mg total) by mouth nightly 04/12/19 25 2024 Discontinued(S top Taking at Discharge) traZODone (DESYREL) 100 mg tablet Take 1.5 tablets (150 mg total) by mouth nightly 04/12/19 25 2024 Discontinued(S top Taking at Discharge) Ativan 0.5 mg tablet Take 1 tablet (0.5 mg total) by mouth every 6 (six) hours as needed for anxiety 04/12/19 25 2024 Discontinued(S top Taking at Discharge) methylPREDNISolon e (MEDROL DOSEPACK) 4 mg Dosepack Take 1 tablet (4 mg total) by mouth daily On day 3 of taper. Remaining 04/26/24 4mg x3 doses, 04/27/24 4 mg x2 doses. 04/28/24 4mg x1 dose 04/21/19 25 2024 Discontinued(S top Taking at Discharge) ondansetron (ZOFRAN) 4 mg tablet Take 1 tablet (4 mg total) by mouth every 8 (eight) hours as needed for nausea or vomiting 2024 Discontinued(S top Taking at Discharge) sertraline 150 mg capsule Take 150 mg by mouth daily 04/12/19 25 2024 Discontinued(S top Taking at Discharge) pancrelipase (CREON) 3,000 units of lipase capsuleIndication s:exocrine pancreatic insufficiency Take 1 capsule by mouth 3 (three) times a day 2024 Discontinued(S top Taking at Discharge) pancrelipase (CREON) 6,000 units of lipase capsuleIndication s:exocrine pancreatic insufficiency Take 1 capsule (6,000 units of lipase total) by mouth 3 (three) times a day 90 capsule 05/07/19 25 2024 Discontinued Active Problems Problem Noted Date Diagnosed Date Unspecified mood disorder 05/02/2024 Alcohol withdrawal syndrome without complication 04/25/2024 Social History Tobacco Use Types Packs/Day Years Used Date Smoking Tobacco: Never Smokeless Tobacco: Never Tobacco Cessation:Counseling Given: No AUDIT-C Answer Date Recorded Q1: How often do you have a drink containing alcohol? 4 or more times a week 04/25/2024 Q2: How many drinks containi ng alcohol do you have on a typical day when you are drinking? 3 or 4 Q3: How often do you have si x or more drinks on one occasion? Weekly 04/25/2024 Personal Safety Answer Date Recorded Have you ever been in or are you currently in a harmful physical or emotional relationship or is someone making you feel afraid or unsafe? Denies 04/25/2024 Comments No Sex and Gender Information Value Date Recorded Sex Assigned at Not on file Legal Sex Female 12:17 PM CDT Gender Identity Not on file Sexual Orientation Not on file Last Filed Vital Signs Vital Sign Reading Time Taken Comments Blood Pressure 118/80 05/07/2024 10:52 AM MOTORCYCLE SERVICE TECHNICIAN Pulse 74 05/07/2024 10:52 AM MOTORCYCLE SERVICE TECHNICIAN Temperature 36.6 ??C (97.9 ??F) 05/07/2024 10:[address] Respiratory Rate 20 05/07/2024 10:52 AM MOTORCYCLE SERVICE TECHNICIAN Oxygen Saturation 91% 05/07/2024 10:52 AM MOTORCYCLE SERVICE TECHNICIAN Inhaled Oxygen Concentration - - Weight 78.6 kg (173 lb 4.5 oz) 05/02/2024 1:12 AM MOTORCYCLE SERVICE TECHNICIAN Height 165.1 cm (5' 5 ) 04/29/2024 3:24 PM MOTORCYCLE SERVICE TECHNICIAN Body Mass Index 28.84 04/29/2024 3:24 PM MOTORCYCLE SERVICE TECHNICIAN Plan of Treatment Not on file Procedures Procedure Name Priority Date/Time Associated Diagnosis Comments EGFR Routine 05/05/2024 12:12 PM MOTORCYCLE SERVICE TECHNICIAN CBC WITHOUT DIFFERENTIAL Routine 05/05/2024 12:12 PM MOTORCYCLE SERVICE TECHNICIAN COMPREHENSIVE METABOLIC PANEL Routine 05/05/2024 12:12 PM MOTORCYCLE SERVICE TECHNICIAN TRANSTHORACIC ECHO (TTE) COMPLETE W DOPPLER/CF WO CONTRAST Routine 05/04/2024 7:30 AM MOTORCYCLE SERVICE TECHNICIAN US UPPER EXTREMITY RIGHT LIMITED IP Routine 05/03/2024 2:05 PM MOTORCYCLE SERVICE TECHNICIAN BLOOD CULTURE Routine 05/03/2024 1:35 PM MOTORCYCLE SERVICE TECHNICIAN BLOOD CULTURE Routine 05/03/2024 11:25 AM MOTORCYCLE SERVICE TECHNICIAN TROPONIN T HIGH-SENSITIVITY 6-HOUR Timed 05/02/2024 11:01 AM MOTORCYCLE SERVICE TECHNICIAN TROPONIN T HIGH-SENSITIVITY 2-HOUR Timed 05/02/2024 6:37 AM MOTORCYCLE SERVICE TECHNICIAN TROPONIN T HIGH-SENSITIVITY SERIES (BASELINE, 2HR, 4HR, 6HR) Routine 05/02/2024 4:17 AM MOTORCYCLE SERVICE TECHNICIAN ECG 12-LEAD Routine 05/02/2024 2:17 AM MOTORCYCLE SERVICE TECHNICIAN US ABDOMEN LIMITED IP Routine 05/01/2024 3: 50 PM MOTORCYCLE SERVICE TECHNICIAN APTT STAT 05/01/2024 2:50 PM MOTORCYCLE SERVICE TECHNICIAN PROTIME-INR STAT 05/01/2024 2:50 PM MOTORCYCLE SERVICE TECHNICIAN URINALYSIS, MICROSCOPIC ONLY Routine 05/01/2024 10:44 AM MOTORCYCLE SERVICE TECHNICIAN URINALYSIS AND REFLEX TO MICROSCOPIC AND CULTURE Routine 05/01/2024 10:44 AM MOTORCYCLE SERVICE TECHNICIAN RESPIRATORY PATHOGEN PANEL Routine 05/01/2024 10:04 AM MOTORCYCLE SERVICE TECHNICIAN XR CHEST 1 VIEW IP Routine 05/01/2024 9:53 AM MOTORCYCLE SERVICE TECHNICIAN EGFR STAT 05/01/2024 8:52 AM MOTORCYCLE SERVICE TECHNICIAN LACTATE STAT 05/01/2024 8:52 AM MOTORCYCLE SERVICE TECHNICIAN COMPREHENSIVE METABOLIC PANEL STAT 05/01/2024 8:52 AM MOTORCYCLE SERVICE TECHNICIAN CBC WITHOUT DIFFERENTIAL STAT 05/01/2024 8:52 AM MOTORCYCLE SERVICE TECHNICIAN BLOOD CULTURE Routine 04/30/2024 8:47 PM MOTORCYCLE SERVICE TECHNICIAN BLOOD CULTURE Routine 04/30/2024 8:47 PM MOTORCYCLE SERVICE TECHNICIAN MRI LUMBAR SPINE WO CONTRAST IP Routine 04/30/2024 2:26 [address] MOTORCYCLE SERVICE TECHNICIAN CT ABDOMEN PELVIS W CONTRAST IP Routine 04/29/2024 9:22 AM MOTORCYCLE SERVICE TECHNICIAN EGFR Routine 04/29/2024 4:53 AM MOTORCYCLE SERVICE TECHNICIAN DIFFERENTIAL AUTO Routine 04/29/2024 4:5 3 AM MOTORCYCLE SERVICE TECHNICIAN PHOSPHORUS Routine 04/29/2024 4:53 AM MOTORCYCLE SERVICE TECHNICIAN MAGNESIUM Routine 04/29/2024 4:53 AM MOTORCYCLE SERVICE TECHNICIAN HEPATIC FUNCTION PANEL Routine 04/29/2024 4:53 AM MOTORCYCLE SERVICE TECHNICIAN CBC WITH AUTO DIFFERENTIAL Routine 04/29/2024 4:53 AM MOTORCYCLE SERVICE TECHNICIAN BASIC METABOLIC PANEL Routine 04/29/2024 4:53 AM MOTORCYCLE SERVICE TECHNICIAN HEPATIC FUNCTION PANEL Add-On 04/28/2024 1:16 PM MOTORCYCLE SERVICE TECHNICIAN LIPASE STAT 04/28/2024 1:16 PM MOTORCYCLE SERVICE TECHNICIAN EGFR Routine 04/26/2024 8:41 AM MOTORCYCLE SERVICE TECHNICIAN COMPREHENSIVE METABOLIC PANEL Routine 04/26/2024 8:41 AM MOTORCYCLE SERVICE TECHNICIAN CBC WITHOUT DIFFERENTIAL Routine 04/26/2024 8:41 AM MOTORCYCLE SERVICE TECHNICIAN APTT STAT 04/25/2024 8:53 AM MOTORCYCLE SERVICE TECHNICIAN PROTIME-INR STAT 04/25/2024 8:53 AM MOTORCYCLE SERVICE TECHNICIAN MAGNESIUM Add-On 04/25/2024 8:53 AM MOTORCYCLE SERVICE TECHNICIAN EGFR STAT 04/25/2024 8:53 AM MOTORCYCLE SERVICE TECHNICIAN DIFFERENTIAL AUTO STAT 04/25/2024 8:5 3 AM MOTORCYCLE SERVICE TECHNICIAN ETHANOL STAT 04/25/2024 8:53 AM MOTORCYCLE SERVICE TECHNICIAN COMPREHENSIVE METABOLIC PANEL STAT 04/25/2024 8:53 AM MOTORCYCLE SERVICE TECHNICIAN CBC WITH AUTO DIFFERENTIAL STAT 04/25/2024 8:53 AM MOTORCYCLE SERVICE TECHNICIAN EGFR STAT 04/25/2024 8:33 AM MOTORCYCLE SERVICE TECHNICIAN DRUGS OF ABUSE SCREEN, URINE WITHOUT CONFIRMATION Routine 04/25/2024 8:33 AM MOTORCYCLE SERVICE TECHNICIAN CBC WITHOUT DIFFERENTIAL STAT 04/25/2024 8:33 AM MOTORCYCLE SERVICE TECHNICIAN COMPREHENSIVE METABOLIC PANEL STAT 04/25/2024 8:33 AM MOTORCYCLE SERVICE TECHNICIAN from Last 3 Months Results * eGFR (05/05/2024 12:12 PM MOTORCYCLE SERVICE TECHNICIAN) [facility] eGFR >90 >=60 mL/min/1. 73 m2 Comment: Interpretive Data Reference Interval Normal ?>/= 90 mL/min/1.73m2 Mildly decreased* ? 60 - 89 mL/min/1.73m2 Mildly to moderately decreased ?45 - 59 mL/min/1.73m2 Moderately to severely decreased ??30 - 44 mL/min/1.73m2 Severely decreased ?15 - 29 mL/min/1.73m2 Kidney Failure ?< 15 ??mL/min/1.73m2 *Relative to young adult level Estimated glomerular filtration rate is determined by the 2020 CKD-EPI equation recommended by the National Kid[employer] (A Unifying Approach to GFR Estimation: Recommendations of the NKF-ASK Task Force on Reassessing the Inclusion of Race in Diagnosing Kidney Disease, JASN 2020). The CKD-EPI equation should not be used for patients with unstable renal function and has not been validated in children and those over 70. Current interpretive data was last reviewed 2021. Blood 05/05/2024 12:1 2 PM MOTORCYCLE SERVICE TECHNICIAN 05/05/2024 12:26 PM MOTORCYCLE SERVICE TECHNICIAN Shara Serrano Suzy DO LAB BLOOD ORDERABLES F inal Result [facility] ([place]) 1 [facility] [place] [address] * (ABNORMAL) CBC without differential (05/05/2024 12:12 PM MOTORCYCLE SERVICE TECHNICIAN) WBC 4.3 3.8 - 9.9 K/cumm Hgb 12.4 11.9 - 15.5 g/dL [facility] ([place]) Hct 36.7 35.6 - 45.5 % [facility] ([place]) Plt 117(L) 150 - 400 K/cumm [facility] ([place]) MPV 10.2 9.1 - 12.3 fL [facility] ([place]) RBC 3.87(L) 3.90 - 5.20 M/cumm [facility] ([place]) MCV 94.8 81.3 - 96.4 fL [facility] MCH 32.0 27.1 - 33.3 pg [facility] MCHC 33.8 32.3 - 35.7 g/dL [facility] RDW CV 13.3 11.1 - 14.9 % [facility] ([place]) RDW SD 46.5 35.7 - 48.[address] [facility] ([place]) NRBC abs 0.00 0.00 - 0.01 K/cumm [facility] ([place]) Blood 05/05/2024 12:1 2 PM MOTORCYCLE SERVICE TECHNICIAN 05/05/2024 12:26 PM MOTORCYCLE SERVICE TECHNICIAN Shara Yates DO LAB BLOOD ORDERABLES F inal Result [facility] ([place]) 1 [facility] [place] [address] * (ABNORMAL) Comprehensive metabolic panel (05/05/2024 12:12 PM MOTORCYCLE SERVICE TECHNICIAN) Sodium 138 135 - 145 mmol/L Potassium, pl 4.1 3.3 - 4.9 mmol/L [facility] ([place]) Chloride 104 97 - 110 mmol/L [facility] ([place]) CO2 24 22 - 32 mmol/L [facility] ([place]) Anion gap 11 2 - 15 mmol/L [facility] ([place]) BUN 12 6 - 25 mg/dL [facility] ([place]) Creatinine 0.45(L) 0.60 - 1.10 mg/dL [facility] ([place]) Glucose 102 70 - 199 mg/dL [facility] ([place]) Comment: Interpretive Data Fasting glucose >/= 126 mg/dl is diagnostic for diabetes. ?? Fasting is defined as no caloric intake for at least 8 hours. Fasting glucose between 100 mg/dl to 125 mg/dl is diagnostic of prediabetes. In a patient with classic symptoms of hyperglycemia or hyperglycemic crisis, a random glucose >/= 200 mg/dl is diagnostic for diabetes. In the absence of unequivocal hyperglycemia, results should be confirmed by repeat testing. The classification and Diagnosis of Diabetes Diabetes Care 2022; 46: S19-S40. Current interpretive data was last revised 2022. Calcium 9.4 8.5 - 10.3 mg/dL [facility] ([place]) Bilirubin, total 0.4 0.1 - 1.2 mg/dL [facility] ([place]) Protein, pl 7.3 6.5 - 8.5 g/dL [facility] ([place]) Albumin 3.8 3.5 - 5.0 g/dL [facility] ([place]) Alk phos 115 40 - 130 Units/L [facility] ([place]) ALT 29 7 - 45 Units/L [facility] ([place] AST 39 10 - 45 Units/L [facility] ([place]) Blood 05/05/2024 12:1 2 PM MOTORCYCLE SERVICE TECHNICIAN 05/05/2024 12:26 PM MOTORCYCLE SERVICE TECHNICIAN us Shara Yates DO LAB BLOOD ORDERABLES F inal Result [facility] ([place]) 1 [facility] [place] [address] * TRANSTHORACIC ECHO (TTE) COMPLETE W DOPPLER/CF WO CONTRAST (05/04/2024 7:30 AM MOTORCYCLE SERVICE TECHNICIAN) LV EF 60-65 % CONS SCIMAGE Anatomical Region Laterality Modality Ultrasound 05/04/2024 7:13 AM MOTORCYCLE SERVICE TECHNICIAN Narrative 05/04/2024 4:47 PM MOTORCYCLE SERVICE TECHNICIAN [address] [place] [address] Echocardiogram Report Patient Name: LATRICE VALENCIA : 1975 Study Date: 05/04/2024 7:13:46 AM Gender: F Tech: NL Location: [id number] Ref Provider: SHARA YATES ?Height(Cm): 165 BSA: 1.74 Weight(Kg): 65.8 Quality: Adequate Order Provider: SHARA YATES ?? PROCEDURES: Echocardiographic Report: Transthoracic echocardiogram with complete 2D, M-Mode, and color Doppler examination. ?? INDICATIONS: r/o veggie. ?? MEASUREMENTS: 2D/MM ?Value ?Range ?Doppler ?Value ? Range EF Teich MM ?63.0 % ? [ 54.0 - 74.0 ] ?OLGA Vmax ? 2.87 cm2 Estimated EF ? 60-65 % ? AV Mean PG ? 3 mmHg LVIDd MM ? 5.30 cm ?[ 3.80 - 5.20 ] ?AV Peak Nicolás ?1.23 m/s ?[ 1.00 - 1.70 ] LVIDs MM ? 3.50 cm ?[ 2.20 - 3.50 ] ?AV VTI ? 23.63 cm LVPWd MM ? 0.80 cm ?[ 0.60 - 0.90 ] ?LVOT Diam ?2.38 cm IVSd MM ?0.80 cm ?[ 0.60 - 0.90 ] ?LVOT Peak Nicolás ?0.79 m/s ?[ 0.70 - 1.10 ] LA Dimension MM ?3.34 cm ?[ 2.70 - 3.80 ] ?LVOT VTI ? 14.61 cm AoR Diam MM ?3.32 cm ?[ 2.70 - 3.70 ] ?MV E Peak Nicolás ?0.56 m/s ?[ 0.60 - 1.30 ] ACS MM ? 2.22 cm ? MV A Peak Nicolás ?0.53 m/s ?[ 1.00 - 1.20 ] MV Mean PG ? 1 mmHg MV PHT ? 38 msec ? [ 20 - 100 ] MVA ?5.80 MV Decel Time ?280 msec ?[ 104 - 258 ] PV Peak Nicolás ?0.77 m/s ?[ 0.40 - 0.80 ] E` ? 0.05 m/s E/E` ? 10.59 ? [ <= 10.00 ] 2D/MM ?Value ?Range ?Doppler ?Value ? Range - ?? FINDINGS: Atrial Septum: Normal atrial septum. Left Ventricle: Normal left ventricular systolic function with no focal wall motion abnormalities. Normal left ventricular size. Normal left ventricular wall thickness. Diastolic dysfunction is present. Ejection Fraction is estimated to be 60-65 %. Left Atrium: The left atrium is normal in size. Right Ventricle: Normal right ventricular size. Normal right ventricular systolic function. Right Atrium: The right atrium is normal in size. Aortic Valve: Normal structure of the aortic valve. Mitral Valve: Normal structure of the mitral valve. Pulmonic Valve: Normal structure of the pulmonic valve. Tricuspid Valve: Right Ventricular Systolic Pressure could not be estimated due to inadequate visualization of TR jet. Pericardium: Normal pericardium with no significant pericardial effusion. Aorta: Normal aortic root. Sinus of Valsalva is normal. Aortic arch is normal. Descending aorta is normal. IVC: Normal size and normal respiratory collapse consistent with normal right atrial pressure (<5 mmHg). Pulmonary Artery: Normal pulmonary artery size. ?? CONCLUSIONS: Probably Normal left ventricular systolic function with no clear wall motion abnormalities. Normal left ventricular size. Normal left ventricular wall thickness. Diastolic dysfunction is present. Ejection Fraction is estimated to be 60-65 %. Right Ventricular Systolic Pressure could not be estimated due to inadequate visualization of TR jet. Technically difficult study with suboptimal views. Electronically Signed By: Kwaku Blanco MD 05/04/2024 4:46:44 PM MOTORCYCLE SERVICE TECHNICIAN Procedure Note Kwaku Blanco MD - 05/04/2024 [place] [address] Echocardiogram Report Patient Name: LATRICE VALENCIA : 1975 Study Date: 05/04/2024 7:13:46 AM Gender: F Tech: Location: [id number] Ref Provider: SHARA YATES Height(Cm): 165 BSA: 1.74 Weight(Kg): 65.8 Quality: Adequate Order Provider: SHARA YATES PROCEDURES: Echocardiographic Report: Transthoracic echocardiogram with complete 2D, M-Mode, and color Dopplerexamination. INDICATIONS: r/o veggie. MEASUREMENTS: 2D/MM Value Range Doppler ValueRange EF Teich MM 63.0 % [ 54.0 - 74.0 ] OLGA Vmax 2.87cm2 Estimated EF 60-65 % AV Mean PG 3 mmHg LVIDd MM 5.30 cm [ 3.80 - 5.20 ] AV Peak Nicolás 1.23 m/s[ 1.00 - 1.70 ] LVIDs MM 3.50 cm [ 2.20 - 3.50 ] AV VTI 23.63cm LVPWd MM 0.80 cm [ 0.60 - 0.90 ] LVOT Diam 2.38cm IVSd MM 0.80 cm [ 0.60 - 0.90 ] LVOT Peak Nicolás 0.79 m/s[ 0.70 - 1.10 ] LA Dimension MM 3.34 cm [ 2.70 - 3.80 ] LVOT VTI 14.61cm AoR Diam MM 3.32 cm [ 2.70 - 3.70 ] MV E Peak Nicolás 0.56 m/s[ 0.60 - 1.30 ] ACS MM 2.22 cm MV A Peak Nicolás 0.53 m/s[ 1.00 - 1.20 ] MV Mean PG 1 mmHg MV PHT 38 msec [ 20 - 100 ] MVA 5.80 MV Decel Time 280 msec [ 104 - 258 ] PV Peak Nicolás 0.77 m/s [ 0.40 - 0.80 ] E` 0.05 m/s E/E` 10.59 [ <= 10.00 ] 2D/MM Value Range Doppler ValueRange - FINDINGS: Atrial Septum: Normal atrial septum. Left Ventricle: Normal left ventricular systolic function with no focal wall motionabnormalities. Normal left ventricular size. Normal left ventricular wall thickness. Diastolicdysfunction is present. Ejection Fraction is estimated to be 60-65 %. Left Atrium: The left atrium is normal in size. Right Ventricle: Normal right ventricular size. Normal right ventricular systolicfunction. Right Atrium: The right atrium is normal in size. Aortic Valve: Normal structure of the aortic valve. Mitral Valve: Normal structure of the mitral valve. Pulmonic Valve: Normal structure of the pulmonic valve. Tricuspid Valve: Right Ventricular Systolic Pressure could not be estimated due toinadequate visualization of TR jet. Pericardium: Normal pericardium with no significant pericardial effusion. Aorta: Normal aortic root. Sinus of Valsalva is normal. Aortic arch is normal.Descending aorta is normal. IVC: Normal size and normal respiratory collapse consistent with normal rightatrial pressure (<5 mmHg). Pulmonary Artery: Normal pulmonary artery size. CONCLUSIONS: Probably Normal left ventricular systolic function with no clear wallmotion abnormalities. Normal left ventricular size. Normal left ventricular wallthickness. Diastolic dysfunction is present. Ejection Fraction is estimated to be60-65 %. Right Ventricular Systolic Pressure could not be estimated due toinadequate visualization of TR jet. Technically difficult study with suboptimal views. Electronically Signed By: Kwaku Blanco MD 05/04/2024 4:46:44 PM MOTORCYCLE SERVICE TECHNICIAN us Shara Yates DO CV ECHO PROCEDURES Fin al Result * US Upper Extremity Right Limited (05/03/2024 2:05 PM MOTORCYCLE SERVICE TECHNICIAN) Anatomical Region Laterality Modality Upper Extremities Right Ultrasound 05/03/2024 4:48 PM MOTORCYCLE SERVICE TECHNICIAN Narrative 05/03/2024 4:51 PM MOTORCYCLE SERVICE TECHNICIAN EXAM DESCRIPTION: ?? US UPPER EXTREMITY RIGHT LIMITED REASON FOR STUDY: ?? Patient with cellulitis at site of right forearm prior IV site. Firmness at this area, wanting to rule out an abscess. ?? TECHNIQUE: A Dynamic assessment was performed of the soft tissues in the right elbow region by the sign hanger supervisor, with selected grayscale and color Doppler images acquired and recorded in PACS. COMPARISON: ?? None FINDINGS: Thrombus is seen within a superficial vein within the region of concern, with prominent peripheral vascularity. IMPRESSION: Superficial thrombophlebitis within the region of concern. THIS IS AN ELECTRONICALLY VERIFIED FINAL REPORT 05/03/2024 4:51 PM - Electronically signed by ??Boyd Cook M.D. KR: CHANG D: ??05/03/2024 4:51 PM T: ??05/03/2024 4:51 PM Report ID: [id number] Reading Location: ??[id number] Procedure Note Boyd Cook MD - 05/03/2024 EXAM DESCRIPTION: US UPPER EXTREMITY RIGHT LIMITED REASON FOR STUDY: Patient with cellulitis at site of right forearm priorIV site. Firmness at this area, wanting to rule out an abscess. TECHNIQUE: A Dynamic assessment was performed of the soft tissues in theright elbow region by the sign hanger supervisor, with selected grayscale and color Doppler images acquired and recorded in PACS. COMPARISON: None FINDINGS: Thrombus is seen within a superficial vein within the region of concern,with prominent peripheral vascularity. IMPRESSION: Superficial thrombophlebitis within the region of concern. THIS IS AN ELECTRONICALLY VERIFIED FINAL REPORT 05/03/2024 4:51 PM - Electronically signed by Boyd Cook M.D. KR: CHANG Report ID: [id number] Reading Location: [id number] Shara Serrano [facility] DO IMG US PROCEDURES Maeve l Result * Blood culture Blood (05/03/2024 1:35 PM MOTORCYCLE SERVICE TECHNICIAN) Report Final Report: No growth Comment:Testing performed by : [facility], [address] [place]., [address] Blood 05/03/2024 1:35 PM MOTORCYCLE SERVICE TECHNICIAN 05/03/2024 4:30 PM MOTORCYCLE SERVICE TECHNICIAN Narrative [facility] ([place]) - 05/08/2024 7:00 AM MOTORCYCLE SERVICE TECHNICIAN From a different site than #1. Collection->Peripheral 1. ?Blood cultures are incubated for 4 days on a continuously monitored blood culture system. The first report of a negative culture is issued within 24 hours of receipt of the specimen in the laboratory. 2. ?Positive culture results are reported as soon as they are detected. 3. ?The most important factor for detection of microbes in the setting of bloodstream infection is the volume of blood submitted for culture. Failure to collect an optimal blood volume can result in false negative blood cultures. 4. ? For pediatric patients, the recommended blood volume to collect follows a weight based strategy. See the electronic test catalog for collection instructions. 5. ?For positive blood cultures, a rapid molecular test may be performed for organism identification using the maxx ePlex blood culture identification panel for gram positive (BCID-GP) and gram negative (BCID-GN) organisms. This nucleic acid amplification test detects microbial DNA in positive blood culture broth. This assay has been cleared by the [place] Food and Drug Administration and its performance characteristics have been verified by the [facility]. For questions about this culture, contact the Microbiology Laboratory at [phone]. Interpretive data was last revised on 24. Shara Serrano Suzy DO LAB MICROBIOLOGY - GEN ERAL ORDERABLES Final Result AMIE RENAE (ALLI) 1 [facility] [place] [address] * Blood culture Blood (05/03/2024 11:25 AM MOTORCYCLE SERVICE TECHNICIAN) Report Final Report: No growth Comment:Testing performed by : [facility], [address] [place]., [address] Blood 05/03/2024 11:2 5 AM MOTORCYCLE SERVICE TECHNICIAN 05/03/2024 1:53 PM MOTORCYCLE SERVICE TECHNICIAN Narrative AMIE RENAE ([place]I) - 05/07/2024 4:00 PM MOTORCYCLE SERVICE TECHNICIAN Collection->Peripheral 1. ?Blood cultures are incubated for 4 days on a continuously monitored blood culture system. The first report of a negative culture is issued within 24 hours of receipt of the specimen in the laboratory. 2. ?Positive culture results are reported as soon as they are detected. 3. ?The most important factor for detection of microbes in the setting of bloodstream infection is the volume of blood submitted for culture. Failure to collect an optimal blood volume can result in false negative blood cultures. 4. ? For pediatric patients, the recommended blood volume to collect follows a weight based strategy. See the electronic test catalog for collection instructions. 5. ?For positive blood cultures, a rapid molecular test may be performed for organism identification using the maxx ePlex blood culture identification panel for gram positive (BCID-GP) and gram negative (BCID-GN) organisms. This nucleic acid amplification test detects microbial DNA in positive blood culture broth. This assay has been cleared by the [place] Food and Drug Administration and its performance characteristics have been verified by the [facility]. For questions about this culture, contact the Microbiology Laboratory at [phone]. Interpretive data was last revised on 24. us Shara Yates DO LAB MICROBIOLOGY - GEN ERAL ORDERABLES Final Result Performing Organization Address [facility] Co de Phone Number AMIE RENAE (ALLI) [address] [place] [address] * Troponin T high-sensitivity 6-hour (05/02/2024 11:01 AM MOTORCYCLE SERVICE TECHNICIAN) Trop T hs <6 <=14 ng/L Comment: Interpretive Data For further hscTnT resources including the diagnostic algorithm and an aid in interpretation, copy and paste this link: https://nrl.[email or web address]/show/hsTrop Current Interpretive Data last revised 2020. Trop T hs delta 0 ng/L [facility] ([place]) Trop T hs interp Insignificant [facility] ([place]) Blood 05/02/2024 11:0 1 AM MOTORCYCLE SERVICE TECHNICIAN 05/02/2024 11:11 AM MOTORCYCLE SERVICE TECHNICIAN us Guille Wall MD LAB BLOOD ORDERABLES Final Resu lt Performing Organization Address [facility] Co de Phone Number AMIE RENAE (ALLI) 1 [place] [address] * Troponin T high-sensitivity 2-hour (05/02/2024 6:37 AM MOTORCYCLE SERVICE TECHNICIAN) Trop T hs <6 <=14 ng/L Comment: Interpretive Data For further hscTnT resources including the diagnostic algorithm and an aid in interpretation, copy and paste this link: https://nrl.[email or web address]/show/hsTrop Current Interpretive Data last revised 2020. Trop T hs delta 0 ng/L [facility] ([place]) Trop T hs interp Insignificant [facility] ([place]) Blood 05/02/2024 6:37 AM MOTORCYCLE SERVICE TECHNICIAN 05/02/2024 7:06 AM MOTORCYCLE SERVICE TECHNICIAN Guille Wall MD LAB BLOOD ORDERABLES Final Resu lt Performing Organization Address City/[facility] Co de Phone Number AMIE RENAE (ALLI) 1 [facility] [place] [address] * Troponin T high-sensitivity series (baseline, 2hr, 4hr, 6hr) (05/02/2024 4:17 AM MOTORCYCLE SERVICE TECHNICIAN) Trop T hs <6 <=14 ng/L Comment: Interpretive Data For further hscTnT resources including the diagnostic algorithm and an aid in interpretation, copy and paste this link: https://nrl.testcatalog.org/show/hsTrop Current Interpretive Data last revised 2020. Blood 05/02/2024 4:17 AM MOTORCYCLE SERVICE TECHNICIAN 05/02/2024 4:40 AM MOTORCYCLE SERVICE TECHNICIAN Guille Wall MD LAB BLOOD ORDERABLES Final Resu lt Performing Organization Address [facility] de Phone Number AMIE RENAE ([place]) 1 [facility] [place] [address] * ECG 12 lead (05/02/2024 2:17 AM MOTORCYCLE SERVICE TECHNICIAN) 05/02/2024 2:17 AM MOTORCYCLE SERVICE TECHNICIAN Narrative [facility] - 05/02/2024 7:39 AM MOTORCYCLE SERVICE TECHNICIAN Vent Rate: 73 bpm RR Interval: 816 msec NC Interval: 180 msec QRS Duration: 84 msec QT Interval: 397 msec QTC Interval: 423 msec P-R-T Pace: 40 - -21 - 31 degrees IMPRESSION: SINUS RHYTHM WITH SINUS ARRHYTHMIA BORDERLINE LEFT AXIS DEVIATION [QRS AXIS < -20] BORDERLINE ECG Electronically Signed By: Kwaku Blanco MD Guille Wall MD ECG ORDERABLES Final Result Performing Organization Address [facility] Co de Phone Number [employer] [facility] * US Abdomen Limited (05/01/2024 3:50 PM MOTORCYCLE SERVICE TECHNICIAN) Anatomical Region Laterality Modality Abdomen N/A Ultrasound 05/01/2024 5:06 PM MOTORCYCLE SERVICE TECHNICIAN Narrative 05/01/2024 5:08 PM MOTORCYCLE SERVICE TECHNICIAN EXAM DESCRIPTION: ?? US ABDOMEN LIMITED REASON FOR STUDY: ?? Epigastric abdominal pain and history of alcohol abuse. ?? Upper abdominal pain beginning 04/28/2024. ??Concern for ascites. TECHNIQUE: Ultrasound of the right upper quadrant of the abdomen was performed with grayscale and color doppler. COMPARISON: ?? None FINDINGS: Limited ultrasound of the abdomen shows no evidence of ascites. ??Incidental note is made of cholelithiasis. IMPRESSION: No evidence of ascites. Cholelithiasis. THIS IS AN ELECTRONICALLY VERIFIED FINAL REPORT 05/01/2024 5:08 PM - Electronically signed by ??Boyd Caldwell M.D. KT: KARINA D: ??05/01/2024 5:08 PM T: ??05/01/2024 5:08 PM Report ID: [id number] Reading Location: ??[id number] Procedure Note Boyd Caldwell MD - 05/01/2024 EXAM DESCRIPTION: US ABDOMEN LIMITED REASON FOR STUDY: Epigastric abdominal pain and history of alcoholabuse. Upper abdominal pain beginning 04/28/2024. Concern for ascites. TECHNIQUE: Ultrasound of the right upper quadrant of the abdomen wasperformed with grayscale and color doppler. COMPARISON: None FINDINGS: Limited ultrasound of the abdomen shows no evidence of ascites.Incidental note is made of cholelithiasis. IMPRESSION: No evidence of ascites. Cholelithiasis. THIS IS AN ELECTRONICALLY VERIFIED FINAL REPORT 05/01/2024 5:08 PM - Electronically signed by Boyd Caldwell M.D. KT: KARINA Report ID: [id number] Reading Location: [id number] Shara Yates DO IMG US PROCEDURES Maeve l Result * aPTT (05/01/2024 2:50 PM MOTORCYCLE SERVICE TECHNICIAN) aPTT 34 28 - 38 sec AMIE RENAE ([place]I) Comment: Interpretive Data Heparin therapeutic range: 66.0 - 100.0 seconds. Range based on correlation with therapeutic heparin activity range of 0.3 - 0.7 Units/mL. Current interpretive data was last revised on 2023. Blood 05/01/2024 2:50 PM MOTORCYCLE SERVICE TECHNICIAN 05/01/2024 3:05 PM MOTORCYCLE SERVICE TECHNICIAN [facility] LAB BLOOD ORDERABLES F inal Result [facility]IE [facility] ([place]) 1 [facility] [place] [address] * (ABNORMAL) Protime-INR (05/01/2024 2:50 PM MOTORCYCLE SERVICE TECHNICIAN) PT 14.9(H) 9.7 - 13.0 sec AMIE RENAE ([place]) INR 1.37(H) 0.90 - 1.[address] [facility] ([place]) Comment: Interpretive data Oral anticoagulant therapeutic ranges: Venous thromboembolism prophylaxis or treatment: 2.0-3.0 CARDIOLOGY Standard range: 2.0-3.0 High-intensity range: 2.5-3.5 Refer to indication-specific guidelines for appropriate target ranges for prosthetic heart valve replacement. Current interpretive data was last revised on 2019. Blood 05/01/2024 2:50 PM MOTORCYCLE SERVICE TECHNICIAN 05/01/2024 3:05 PM MOTORCYCLE SERVICE TECHNICIAN [facility] LAB BLOOD ORDERABLES F inal Result [facility] ([facility] 1 [facility] [place] [address] * (ABNORMAL) Urinalysis reflex to microscopic and culture Urine (05/01/2024 10:44 AM MOTORCYCLE SERVICE TECHNICIAN) Color, ur Yellow Yellow Clarity, ur Clear Clear AMIE Patel ([place]) Specific gravity, ur 1.017 1.003 - 1.030 AMIE RENAE ([place]) pH, urine 6.0 [facility] ([place]) Comment: Interpretive Data ? Urine pH is affected by diet, medications, systemic acid-base disturbances, and renal tubular function. ??pH may affect urinary stone formation. ??For example, urine pH below 6.0 may help reduce the tendency for calcium phosphate stones and pH greater than 6.0 may reduce the tendency for uric acid stone formation. Source: [facility] Current Interpretive Data was last revised on 2017 Protein, ur ql Negative Negative [facility] ([place]) Glucose, ur ql Negative Negative [facility] ([place]) Ketones, ur Negative Negative [facility] ([place]) Bilirubin, ur Negative Negative [facility] ([place]) Blood, ur Negative Negative [facility] ([place]) Urobilinogen, ur <2.0 <2.0 mg/dL [facility] ([place]) Nitrite, ur Negative Negative [facility] ([place]) Leukocyte esterase, ur 1+(A) Negative [facility] ([place]) UA reflex comment Reflex to microscopic UA will be performed. [facility] ([place]) Urine 05/01/2024 10:4 4 AM MOTORCYCLE SERVICE TECHNICIAN 05/01/2024 10:50 AM MOTORCYCLE SERVICE TECHNICIAN Shara Yates DO LAB MICROBIOLOGY - GEN ERAL ORDERABLES Final Result [facility] ([place]) 1 [facility] Department [place] [address] * (ABNORMAL) Urinalysis, microscopic only (05/01/2024 10:44 AM MOTORCYCLE SERVICE TECHNICIAN) WBC, ur 0-5 0 - 5 /HPF RBC, ur 0-2 0 - 2 /HPF [facility] ([place]) Epithelial cells, squamous, ur 11-20(A) 0 - 5 /HPF [facility] ([place]) Bacteria, ur Trace(A) [facility] ([place]) Mucous, ur Present(A) [facility] ([place]) Culture Reflex Comment Reflex conditions for urine culture (WBC >10) not met. [facility] ([place]) Urine 05/01/2024 10:4 4 AM MOTORCYCLE SERVICE TECHNICIAN 05/01/2024 10:50 AM MOTORCYCLE SERVICE TECHNICIAN Shara Yates DO LAB URINE ORDERABLES F inal Result [facility] (ALLI) 1 [facility] [place] [address] * Respiratory pathogen panel Nasopharyngeal (05/01/2024 10:04 AM MOTORCYCLE SERVICE TECHNICIAN) Pathologist [facility] Influenza A RNA Not Detected Not Detected Comment:Testing performed by : [facility], [address] [place] [address], [id number] Influenza B RNA Not Detected Not Detected [facility] ([place]) Comment:Testing performed by : [facility], [address] [place] [address], [id number] RSV RNA Not Detected Not Detected [facility] ([place]) Comment:Testing performed by : [facility], [address] [place] [address], [id number] COVID-19 RNA Not Detected Not Detected [facility] ([place]) Comment:Testing performed by : [facility], [address] [place] [address]., [id number] Coronavirus 229E RNA Not Detected Not Detected [facility] ([place]) Comment:Testing performed by : [address], [address] Coronavirus HKU1 RNA Not Detected Not Detected [facility] ([place]) Comment:Testing performed by : [facility], [address] [place] [address]., [id number] Coronavirus NL63 RNA Not Detected Not Detected [facility] ([place]) Comment:Testing performed by : [facility], [address] [place] [address]., [id number] Coronavirus OC43 RNA Not Detected Not Detected [facility] ([place]) Comment:Testing performed by : [address], [address] Adenovirus DNA Not Detected Not Detected [facility] ([place]) Comment:Testing performed by : [address], [address] Metapneumovirus RNA Not Detected Not Detected [facility] ([place]) Comment:Testing performed by : [address], [address] Rhinovirus/Enterov irus RNA Not Detected Not Detected [facility] ([place]) Comment:Testing performed by : [facility], [address] [place] [address]., [id number] Parainfluenza 1 RNA Not Detected Not Detected [facility] ([place]) Comment:Testing performed by : [facility], [address] [place] [address]., [id number] Parainfluenza 2 RNA Not Detected Not Detected [facility] ([place]) Comment:Testing performed by : [facility], [address] [place] [address]., [id number] Parainfluenza 3 RNA Not Detected Not Detected [facility] ([place]) Comment:Testing performed by : [facility], [address] [place] [address]., [address] Parainfluenza 4 RNA Not Detected Not Detected [facility] ([place]) Comment:Testing performed by : [facility], [address] [place] [address]., [address] B. pertussis DNA Not Detected Not Detected [facility] ([place]) Comment:Testing performed by : [facility], [address] [place] [address]., [id number] B. parapertussis DNA Not Detected Not Detected [facility] ([place]) Comment:Testing performed by : [facility], [address] [place] [address]., [id number] C. pneumoniae DNA Not Detected Not Detected [facility] ([place]) Comment:Testing performed by : [facility], [address] [place] [address]., [id number] M. pneumoniae DNA Not Detected Not Detected [facility] ([place]) Comment: Interpretive Data The [employer] FilmArray Respiratory Panel (RP2.1) assay is a multiplexed real-time PCR based nucleic acid test capable of simultaneous qualitative detection and identification of multiple respiratory viral and bacterial nucleic acids, including SARS Coronavirus 2 (the causative agent of COVID-19). The following bacteria, viruses and virus subtypes can be identified using the FilmArray RP2.1 assay: Bordetella pertussis, Bordetella parapertussis, Chlamydia pneumoniae, Mycoplasma pneumoniae, Adenovirus, SARS Coronavirus 2, seasonal coronaviruses (Coronavirus HKU1, Coronavirus NL63, Coronavirus 229E, and Coronavirus OC43), Influenza A, Influenza A subtype H1, Influenza A subtype H3, Influenza A subtype 2009 H1, Influenza B, Metapneumovirus, Parainfluenza 1, Parainfluenza 2, Parainfluenza 3, Parainfluenza 4, RSV, Rhinovirus/Enterovirus. Due to the genetic similarity between human Rhinovirus and Enterovirus, the FilmArray RP2.1 assay cannot reliably differentiate them. Coronavirus OC43 may cross-react with some isolates of Coronavirus HKU1. ??A dual positive result may be due to cross-reactivity or may indicate a co-infection. The detection and identification of specific viral and bacterial nucleic acids from individuals exhibiting signs and symptoms of a respiratory infection aids in the diagnosis of respiratory infection if used in conjunction with other clinical and epidemiological information. ??The results of this test should not be used as the sole basis for diagnosis, treatment, or other management decisions. ??Negative results in the setting of a respiratory illness may be due to infection with pathogens that are not detected by this test. ??Positive results do not rule out infection/co-infection with other organisms. ??The agent(s) detected by the FilmArray RP2.1 may not be the definite cause of disease. ??Additional testing (lab, imaging, etc.) may be necessary when evaluating a patient with possible respiratory tract infection. The FilmArray RP2.1 assay has FDA clearance for testing of REEL ASSEMBLER swabs. ??The performance characteristics of this assay have been determined by [facility]. Current interpretive data was last revised on 2020. Testing performed by: [facility], [address] [place] [address]., [id number] Nasopharyngeal 05/01/2024 10 :04 AM MOTORCYCLE SERVICE TECHNICIAN 05/01/2024 11:23 AM MOTORCYCLE SERVICE TECHNICIAN Narrative AMIE RENAE ([place]) - 05/01/2024 12:24 PM MOTORCYCLE SERVICE TECHNICIAN Is the Patient experiencing symptoms consistent with COVID?->Yes Surveillance testing for transplant patient?->No Shara Yates DO LAB MICROBIOLOGY - GEN ERAL ORDERABLES Final Result AMIE RENAE ([place]) 1 [facility] [place] [address] CH * XR CHEST 1 VIEW PORTABLE (05/01/2024 9:53 AM MOTORCYCLE SERVICE TECHNICIAN) Anatomical Region Laterality Modality Body, Chest N/A Computed Radiogr aphy 05/01/2024 12:2 9 PM MOTORCYCLE SERVICE TECHNICIAN Narrative 05/01/2024 12:30 PM MOTORCYCLE SERVICE TECHNICIAN EXAM DESCRIPTION: ?? XR CHEST 1 VIEW REASON FOR STUDY: ?? r/o infection ?? r/o infection ? TECHNIQUE: ??Single-view COMPARISON: ??01/16/2023 FINDINGS: Central vascularity are somewhat ill-defined. ??Perihilar interstitial densities could indicate mild vascular congestion or mild peribronchial inflammatory change Band like density left mid lung field may represent developing atelectasis and/or pneumonic infiltrative. No effusion or pneumothorax. IMPRESSION: Perihilar densities could indicate mild vascular congestion or peribronchial inflammation. Band like density left mid lung field may represent atelectasis and/or pneumonic infiltrate. THIS IS AN ELECTRONICALLY VERIFIED FINAL REPORT 05/01/2024 12:30 PM - Electronically signed by ??Dong Thorne M.D. RB: RB D: ??05/01/2024 12:30 PM T: ??05/01/2024 12:30 PM Report ID: [id number] Reading Location: ??[id number] Procedure Note Dong Thorne MD - 05/01/2024 EXAM DESCRIPTION: XR CHEST 1 VIEW REASON FOR STUDY: r/o infection r/o infection TECHNIQUE: Single-view COMPARISON: 01/16/2023 FINDINGS: Central vascularity are somewhat ill-defined. Perihilar interstitial densities could indicate mild vascular congestion or mild peribronchial inflammatory change Band like density left mid lung field may represent developing atelectasis and/or pneumonic infiltrative. No effusion or pneumothorax. IMPRESSION: Perihilar densities could indicate mild vascular congestion orperibronchial inflammation. Band like density left mid lung field may represent atelectasis and/or pneumonic infiltrate. THIS IS AN ELECTRONICALLY VERIFIED FINAL REPORT 05/01/2024 12:30 PM - Electronically signed by Dong Thorne M.D. RB: RB Report ID: [id number] Reading Location: [id number] Shara Yates DO IMG XR PROCEDURES Maeve l Result * Lactate (05/01/2024 8:52 AM MOTORCYCLE SERVICE TECHNICIAN) Lactate 1.3 0.7 - 2.0 mmol/L Blood 05/01/2024 8:52 AM MOTORCYCLE SERVICE TECHNICIAN 05/01/2024 9:01 AM MOTORCYCLE SERVICE TECHNICIAN Shara Yates DO LAB BLOOD ORDERABLES F inal Result AMIE RENAE ([place]) 1 [facility] [place] [address] * eGFR (05/01/2024 8:52 AM MOTORCYCLE SERVICE TECHNICIAN) eGFR >90 >=60 mL/min/1. 73 m2 Comment: Interpretive Data Reference Interval Normal ?>/= 90 mL/min/1.73m2 Mildly decreased* ? 60 - 89 mL/min/1.73m2 Mildly to moderately decreased ?45 - 59 mL/min/1.73m2 Moderately to severely decreased ??30 - 44 mL/min/1.73m2 Severely decreased ?15 - 29 mL/min/1.73m2 Kidney Failure ?< 15 ??mL/min/1.73m2 *Relative to young adult level Estimated glomerular filtration rate is determined by the 2020 CKD-EPI equation recommended by the National Kidney Foundation (A Unifying Approach to GFR Estimation: Recommendations of the NKF-ASK Task Force on Reassessing the Inclusion of Race in Diagnosing Kidney Disease, JASN 2020). The CKD-EPI equation should not be used for patients with unstable renal function and has not been validated in children and those over 70. Current interpretive data was last reviewed 2021. Blood 05/01/2024 8:52 AM MOTORCYCLE SERVICE TECHNICIAN 05/01/2024 9:40 AM MOTORCYCLE SERVICE TECHNICIAN Shara Yates DO LAB BLOOD ORDERABLES F inal Result [facility] ([place]) 1 [facility] [place] [address] * (ABNORMAL) CBC without differential (05/01/2024 8:52 AM MOTORCYCLE SERVICE TECHNICIAN) Pathologist [facility] WBC 6.4 3.8 - 9.9 K/cumm Hgb 13.5 11.9 - 15.5 g/dL [facility] ([place]) Hct 39.8 35.6 - 45.5 % [facility] ([place]) Plt 71(L) 150 - 400 K/cumm [facility] ([place]) Comment:No clot detected in sample. MPV 9.8 9.1 - 12.3 fL [facility] ([place]) RBC 4.08 3.90 - 5.20 M/cumm [facility] ([place]) MCV 97.5(H) 81.3 - 96.4 fL [facility] ([place]) MCH 33.1 27.1 - 33.3 pg [facility] ([place]) MCHC 33.9 32.3 - 35.7 g/dL [facility] ([place]) RDW CV 13.8 11.1 - 14.9 % [facility] ([place]) RDW SD 49.1(H) 35.7 - 48.1 fL [facility] ([place]) NRBC abs 0.00 0.00 - 0.01 K/cumm [facility] ([place]) Blood 05/01/2024 8:52 AM MOTORCYCLE SERVICE TECHNICIAN 05/01/2024 9:40 AM MOTORCYCLE SERVICE TECHNICIAN Shara Yates DO LAB BLOOD ORDERABLES F inal Result Performing Organization Address City/[facility]/ZIP Co de Phone Number [facility] ([place]) 1 [facility] [place] [address] * (ABNORMAL) Comprehensive metabolic panel (05/01/2024 8:52 AM MOTORCYCLE SERVICE TECHNICIAN) Sodium 132(L) 135 - 145 mmol/L Potassium, pl 3.6 3.3 - 4.9 mmol/L [facility] ([place]) Chloride 100 97 - 110 mmol/L [facility] ([place]) CO2 20(L) 22 - 32 mmol/L [facility] ([place]) Anion gap 12 2 - 15 mmol/L [facility] ([place]) BUN 12 6 - 25 mg/dL [facility] ([place]) Creatinine 0.62 0.60 - 1.10 mg/dL [facility] ([place]) Glucose 117 70 - 199 mg/dL [facility] ([place]) Comment: Interpretive Data Fasting glucose >/= 126 mg/dl is diagnostic for diabetes. ?? Fasting is defined as no caloric intake for at least 8 hours. Fasting glucose between 100 mg/dl to 125 mg/dl is diagnostic of prediabetes. In a patient with classic symptoms of hyperglycemia or hyperglycemic crisis, a random glucose >/= 200 mg/dl is diagnostic for diabetes. In the absence of unequivocal hyperglycemia, results should be confirmed by repeat testing. The classification and Diagnosis of Diabetes Diabetes Care 2021; 46: S19-S40. Current interpretive data was last revised 2022. Calcium 8.7 8.5 - 10.3 mg/dL [facility] ([place]) Bilirubin, total 0.7 0.1 - 1.2 mg/dL [facility] ([place]) Protein, pl 7.1 6.5 - 8.5 g/dL [facility] ([place]) Albumin 3.8 3.5 - 5.0 g/dL [facility] ([place]) Alk phos 88 40 - 130 Units/L [facility] ([place]) ALT 23 7 - 45 Units/L [facility] ([place]) AST 40 10 - 45 Units/L [facility] ([place]) Blood 05/01/2024 8:52 AM MOTORCYCLE SERVICE TECHNICIAN 05/01/2024 9:40 AM MOTORCYCLE SERVICE TECHNICIAN Shara Yates DO LAB BLOOD ORDERABLES F inal Result [facility] ([place]) 1 [facility] [place] [address] * (ABNORMAL) Blood culture Blood (04/30/2024 8:47 PM MOTORCYCLE SERVICE TECHNICIAN) Pathologist [facility] Direct Specimen Exam Molecular Analysis: Methicillin-suscep tible Staphylococcus aureus (MSSA) detected by the maxx ePlex BCID-GP panel. This test does not exclude the possibility of a mixed bacterial infection. Notification of: Methicillin-suscep tible Staphylococcus aureus (MSSA) called to and read back by: Latrice Wellington MLS ([phone]) on 05/02/2024 01:41:52 by: Fritz Kebede MLS Comment:Testing performed by : [facility], [address] [place] [address]., [id number] Direct Specimen Exam Stain: Gram Positive Cocci in clusters Time to culture positivity (anaerobic media): 22.7 hours Notification of: Gram Positive Cocci in clusters called to and read back by: Latrice Wellington MLS ([phone]) on 05/01/2024 23:41:23 by: Fritz Kebede MLS Test result called to and read back by fabio stephenson on 05/02/2024 00:23:23 by latrice RENAE (ALLI) Comment:Testing performed by : [facility], [address] [place] [address]., [id number] Report Final Report: Staphylococcus aureus Methicillin susceptible (MSSA) by penicillin binding protein 2a (PBP2a) testing. (.) AMIE RENAE (ALLI) Comment:Testing performed by : [facility], [address] [place] [address]., [id number] Organism STAPHYLOCOCCUS AUREUS AMEI RENAE (ALLI) Blood 04/30/2024 8:47 PM MOTORCYCLE SERVICE TECHNICIAN 05/01/2024 Kris RENAE (ALLI) - 05/06/2024 1:15 PM MOTORCYCLE SERVICE TECHNICIAN From a different site than #1. Collection->Peripheral 1. ?Blood cultures are incubated for 4 days on a continuously monitored blood culture system. The first report of a negative culture is issued within 24 hours of receipt of the specimen in the laboratory. 2. ?Positive culture results are reported as soon as they are detected. 3. ?The most important factor for detection of microbes in the setting of bloodstream infection is the volume of blood submitted for culture. Failure to collect an optimal blood volume can result in false negative blood cultures. 4. ? For pediatric patients, the recommended blood volume to collect follows a weight based strategy. See the electronic test catalog for collection instructions. 5. ?For positive blood cultures, a rapid molecular test may be performed for organism identification using the maxx ePlex blood culture identification panel for gram positive (BCID-GP) and gram negative (BCID-GN) organisms. This nucleic acid amplification test detects microbial DNA in positive blood culture broth. This assay has been cleared by the [place] Food and Drug Administration and its performance characteristics have been verified by the [facility]. For questions about this culture, contact the Microbiology Laboratory at [phone]. Interpretive data was last revised on 24. Organism Antibiotic Method Susceptibility Staphylococcus aureus Doxycycline (ILIA) INTERPRETATIO N Susceptible Staphylococcus aureus Linezolid (ILIA) INTERPRETATIO N Susceptible Staphylococcus aureus Trimethoprim with Sulfamethoxazole (ILIA) INTERPRETATION Susceptible Staphylococcus aureus Clindamycin (ILIA) INTERPRETATIO N Susceptible Staphylococcus aureus Erythromycin (ILIA) INTERPRETATIO N Susceptible Staphylococcus aureus Vancomycin (ILIA) INTERPRETATIO N Susceptible Staphylococcus aureus Oxacillin (ILIA) INTERPRETATIO N Susceptible Staphylococcus aureus Cefazolin (ILIA) INTERPRETATIO N Susceptible Staphylococcus aureus Ceftriaxone (ILIA) INTERPRETATIO N Susceptible Guille Wall MD LAB MICROBIOLOGY - [facility] Final Result AMIE RENAE [place] 1 [facility] [place] [address] * Blood culture Blood (04/30/2024 8:47 PM MOTORCYCLE SERVICE TECHNICIAN) Report Final Report: No growth Comment:Testing performed by : [facility], [address] [facility], [place]., [address] Blood 04/30/2024 8:47 PM MOTORCYCLE SERVICE TECHNICIAN 05/01/2024 Narrative AMIE RENAE (ALLI) - 05/05/2024 7:00 AM MOTORCYCLE SERVICE TECHNICIAN Collection->Peripheral 1. ?Blood cultures are incubated for 4 days on a continuously monitored blood culture system. The first report of a negative culture is issued within 24 hours of receipt of the specimen in the laboratory. 2. ?Positive culture results are reported as soon as they are detected. 3. ?The most important factor for detection of microbes in the setting of bloodstream infection is the volume of blood submitted for culture. Failure to collect an optimal blood volume can result in false negative blood cultures. 4. ? For pediatric patients, the recommended blood volume to collect follows a weight based strategy. See the electronic test catalog for collection instructions. 5. ?For positive blood cultures, a rapid molecular test may be performed for organism identification using the maxx ePlex blood culture identification panel for gram positive (BCID-GP) and gram negative (BCID-GN) organisms. This nucleic acid amplification test detects microbial DNA in positive blood culture broth. This assay has been cleared by the [place] Food and Drug Administration and its performance characteristics have been verified by the [facility]. For questions about this culture, contact the Microbiology Laboratory at [phone]. Interpretive data was last revised on 24. us Guille Wall MD LAB MICROBIOLOGY - [facility] Final Result AMIE RENAE (ALLI) 1 [facility] [place] [address] * MRI Lumbar Spine WO Contrast (04/30/2024 2:26 PM MOTORCYCLE SERVICE TECHNICIAN) Anatomical Region Laterality Modality Spine N/A Magnetic Resonan ce 04/30/2024 4:06 PM MOTORCYCLE SERVICE TECHNICIAN Narrative 04/30/2024 4:12 PM MOTORCYCLE SERVICE TECHNICIAN EXAM DESCRIPTION: ?? MRI LUMBAR SPINE WO CONTRAST REASON FOR STUDY: Nontraumatic lower back pain radiating down the left hip and leg with difficulty walking and standing for 2 weeks. ?? No provided history of inciting event. TECHNIQUE: ??Sagittal and axial imaging of the lumbar spine includes T1, T2, STIR sequences. ?? Images saved to PACS. COMPARISON: ?? Relevant portions of CT abdomen pelvis with contrast 04/29/2024. FINDINGS: SEGMENTATION: ?? No lumbosacral transitional anatomy. ??The lowest fully formed intervertebral disc level is labeled L5-S1. ALIGNMENT: ?? Normal. VERTEBRAE: ?? No MR evidence of acute-subacute fracture. ??Vertebral body heights maintained. ??Spondylosis. ??Scattered hemangiomas most prominent left eccentric L3 vertebral body, and patchy fatty marrow replacement about the osseous architecture. DISC HEIGHT: ?? Multilevel variable intervertebral disc desiccation and loss of intervertebral disc height. HARDWARE: ?? None in the lumbar spine. CORD/CAUDA: ?? Normal in size and signal intensity with conus medullaris termination at L1-2. LOWER THORACIC: ?? Incompletely imaged. ??No stenosis demonstrated. INDIVIDUAL DISC LEVELS: L1-2: ?? No diffuse disc bulge or focal herniation. ??No spinal canal stenosis. ?? No neural foraminal stenosis. L2-3: ?? Mild annular disc bulge with slight annular fissure. ??Bilateral facet arthropathy. ??Mild ligamentum flavum thickening. ??No spinal canal stenosis. ?? Mild bilateral inferior neural foraminal stenosis, noting variable slight disc contact with exiting bilateral L2 nerve roots. L3-4: ?? Annular disc bulge with annular fissure. ??Bilateral hypertrophic facet arthropathy, noting fluid in the facet joints suggestive of facet synovitis. ?? Mild ligamentum flavum thickening. ??Compromise of the bilateral lateral recesses, noting combination of disc and arthropathic facet contact with descending bilateral L4 nerve roots. ??Moderate spinal canal stenosis. ??Mild bilateral inferior neural foraminal stenosis, noting variable disc contact with the exiting bilateral L3 nerve roots. L4-5: ?? Annular disc bulge with annular fissure. ??Bilateral hypertrophic facet arthropathy. ??Ligamentum flavum thickening. ??Compromise of the bilateral lateral recesses common noting compromise of the bilateral lateral recesses, noting combination of disc and arthropathic facet contact with descending bilateral L5 nerve roots. ??Mild spinal canal stenosis. ?? Variable moderate bilateral proximal neural foraminal stenosis, noting combination of disc and arthropathic facet variable contact with exiting bilateral L4 nerve roots. L5-S1: ?? Annular disc bulge with left subarticular-foraminal disc protrusion with annular fissure. ??Bilateral hypertrophic facet arthropathy. ??Compromise of the left lateral recesses, noting combination of disc and arthropathic facet contact with descending left S1 nerve root. ??No spinal canal stenosis. ?? Moderate left and mild right neural foraminal stenosis, noting posterior cortical margin/disc variable contact with exiting bilateral L5 nerve roots. SACRUM: ?? Visualized upper sacrum intact. VISUALIZED UPPER ABDOMEN: ?? Within limitations of patient motion artifact, no gross evidence of acute abnormality. ??Please reference abdominopelvic CT imaging 1 day prior for further evaluation. OTHER: ?? No other significant findings. IMPRESSION: ??Spondylosis and degenerative disc disease of the lumbar spine as detailed level by level above. THIS IS AN ELECTRONICALLY VERIFIED FINAL REPORT 04/30/2024 4:12 PM - Electronically signed by ??Bo Travis M.D. DORIS: DORIS D: ??04/30/2024 4:12 PM T: ??04/30/2024 4:12 PM Report ID: [id number] Reading Location: ??[id number] Procedure Note Bo Travis MD - 04/30/2024 EXAM DESCRIPTION: MRI LUMBAR SPINE WO CONTRAST REASON FOR STUDY: Nontraumatic lower back pain radiating down the left hipand leg with difficulty walking and standing for 2 weeks. No providedhistory of inciting event. TECHNIQUE: Sagittal and axial imaging of the lumbar spine includes T1,T2, STIR sequences. Images saved to PACS. COMPARISON: Relevant portions of CT abdomen pelvis with mgukjogx26/19/2025. FINDINGS: SEGMENTATION: No lumbosacral transitional anatomy. The lowest fullyformed intervertebral disc level is labeled L5-S1. ALIGNMENT: Normal. VERTEBRAE: No MR evidence of acute-subacute fracture. Vertebral body heights maintained. Spondylosis. Scattered hemangiomas most prominentleft eccentric L3 vertebral body, and patchy fatty marrow replacement about the osseous architecture. DISC HEIGHT: Multilevel variable intervertebral disc desiccation andloss of intervertebral disc height. HARDWARE: None in the lumbar spine. CORD/CAUDA: Normal in size and signal intensity with conus medullaris termination at L1-2. LOWER THORACIC: Incompletely imaged. No stenosis demonstrated. INDIVIDUAL DISC LEVELS: L1-2: No diffuse disc bulge or focal herniation. No spinal canalstenosis. No neural foraminal stenosis. L2-3: Mild annular disc bulge with slight annular fissure. Bilateralfacet arthropathy. Mild ligamentum flavum thickening. No spinal canalstenosis. Mild bilateral inferior neural foraminal stenosis, noting variable slightdisc contact with exiting bilateral L2 nerve roots. L3-4: Annular disc bulge with annular fissure. Bilateral hypertrophicfacet arthropathy, noting fluid in the facet joints suggestive of facetsynovitis. Mild ligamentum flavum thickening. Compromise of the bilateral lateral recesses, noting combination of disc and arthropathic facet contact with descending bilateral L4 nerve roots. Moderate spinal canal stenosis.Mild bilateral inferior neural foraminal stenosis, noting variable disc contact with the exiting bilateral L3 nerve roots. L4-5: Annular disc bulge with annular fissure. Bilateral hypertrophicfacet arthropathy. Ligamentum flavum thickening. Compromise of the bilateral lateral recesses common noting compromise of the bilateral lateralrecesses, noting combination of disc and arthropathic facet contact with descending bilateral L5 nerve roots. Mild spinal canal stenosis. Variable moderate bilateral proximal neural foraminal stenosis, noting combination of discand arthropathic facet variable contact with exiting bilateral L4 nerve roots. L5-S1: Annular disc bulge with left subarticular-foraminal discprotrusion with annular fissure. Bilateral hypertrophic facet arthropathy.Compromise of the left lateral recesses, noting combination of disc and arthropathic facet contact with descending left S1 nerve root. No spinal canalstenosis. Moderate left and mild right neural foraminal stenosis, noting posterior cortical margin/disc variable contact with exiting bilateral L5 nerveroots. SACRUM: Visualized upper sacrum intact. VISUALIZED UPPER ABDOMEN: Within limitations of patient motion artifact,no gross evidence of acute abnormality. Please reference abdominopelvic CT imaging 1 day prior for further evaluation. OTHER: No other significant findings. IMPRESSION: Spondylosis and degenerative disc disease of the lumbar spine asdetailed level by level above. THIS IS AN ELECTRONICALLY VERIFIED FINAL REPORT 04/30/2024 4:12 PM - Electronically signed by Bo Travis M.D. DORIS: DORIS Report ID: [id number] Reading Location: [id number] Zee Khan MD [facility] MRI PROCEDURES Final Result * CT Abdomen Pelvis W Contrast (04/29/2024 9:22 AM MOTORCYCLE SERVICE TECHNICIAN) Anatomical Region Laterality Modality Body N/A Computed Tomogra phy 04/29/2024 12:5 1 PM MOTORCYCLE SERVICE TECHNICIAN Narrative 04/29/2024 12:58 PM MOTORCYCLE SERVICE TECHNICIAN EXAM DESCRIPTION: ?? CT ABDOMEN PELVIS W CONTRAST REASON FOR STUDY: ?? Epigastric pain, alcohol abuse, abd pain ?? Upper abdomen pain started yesterday, hx of hysterectomy and pancreatitis. ? TECHNIQUE: CT scan of the abdomen and pelvis performed with intravenous and ?? without ??oral contrast using helical scanning technique with dynamic intravenous contrast injection. Reconstructed coronal and sagittal MPR images reviewed. All images stored on PACS. Automated exposure control was used as a dose optimization technique for this examination. CONTRAST TYPE/DOSE: ?? 75mL of IOVERSOL 350 MG IODINE/ML INTRAVENOUS SYRINGE ?? injected via ?? intravenous COMPARISON: ?? None FINDINGS: LOWER CHEST: ?? An elongated opacity at the left lung base may represent some atelectasis. LIVER: ?? Liver has a nodular surface due to cirrhosis. ??No mass was seen. GALLBLADDER: ?? Stones. No wall thickening or pericholecystic fluid BILE DUCTS: ?? No intrahepatic or extrahepatic ductal dilatation. SPLEEN: ?? Normal size. ??No focal lesions. PANCREAS: ?? No identified cystic or solid masses. No significant calcifications. No adjacent inflammation or peripancreatic fluid collections. Pancreatic duct not dilated. ?? ADRENALS: ?? Normal. KIDNEYS/URINARY TRACT: ?? Kidneys function. ??There is no mass or hydronephrosis. ??A small benign cyst is seen in the right kidney. ?The urinary bladder is slightly distended. ??No mass was seen. GI: ?? No dilated bowel loops. No obvious wall thickening. ??Normal appendix. ?? No significant diverticular disease. ?? There is a large amount of stool in the colon. PERITONEUM: ?? No ascites or free air. RETROPERITONEUM: ?? No mass or adenopathy. REPRODUCTIVE: ?? No significant abnormality. VASCULATURE: ?? No abdominal aortic aneurysm. MUSCULOSKELETAL: ?? There is a nonspecific lytic lesion in the body of L3 on the left. ??The cause is unknown. OTHER: ?? No other abnormality. IMPRESSION: Cholelithiasis. Large amount of stool in the colon. Nonspecific lytic lesion in the body of L3 on the left. Correlation with the patient's cancer history is recommended. ??Consider MRI of the lumbar spine. Distended bladder. Cirrhosis. Elongated opacity at the left lung base perhaps due to atelectasis. THIS IS AN ELECTRONICALLY VERIFIED FINAL REPORT 04/29/2024 12:58 PM - Electronically signed by ??Alphonso Chaudhry M.D. DORIS: DORIS D: ??04/29/2024 12:58 PM T: ??04/29/2024 12:58 PM Report ID: [id number] Reading Location: ??[id number] Procedure Note aDve Chaudhry MD - 04/29/2024 EXAM DESCRIPTION: CT ABDOMEN PELVIS W CONTRAST REASON FOR STUDY: Epigastric pain, alcohol abuse, abd pain Upper abdomen pain started yesterday, hx of hysterectomy and pancreatitis. TECHNIQUE: CT scan of the abdomen and pelvis performed with intravenousand without oral contrast using helical scanning technique with dynamic intravenous contrast injection. Reconstructed coronal and sagittal MPRimages reviewed. All images stored on PACS. Automated exposure control was usedas a dose optimization technique for this examination. CONTRAST TYPE/DOSE: 75mL of IOVERSOL 350 MG IODINE/ML INTRAVENOUSSYRINGE injected via intravenous COMPARISON: None FINDINGS: LOWER CHEST: An elongated opacity at the left lung base may representsome atelectasis. LIVER: Liver has a nodular surface due to cirrhosis. No mass was seen. GALLBLADDER: Stones. No wall thickening or pericholecystic fluid BILE DUCTS: No intrahepatic or extrahepatic ductal dilatation. SPLEEN: Normal size. No focal lesions. PANCREAS: No identified cystic or solid masses. No significant calcifications. No adjacent inflammation or peripancreatic fluidcollections. Pancreatic duct not dilated. ADRENALS: Normal. KIDNEYS/URINARY TRACT: Kidneys function. There is no mass or hydronephrosis. A small benign cyst is seen in the right kidney. The urinary bladder is slightly distended. No mass was seen. GI: No dilated bowel loops. No obvious wall thickening. Normalappendix. No significant diverticular disease. There is a large amount of stool inthe colon. PERITONEUM: No ascites or free air. RETROPERITONEUM: No mass or adenopathy. REPRODUCTIVE: No significant abnormality. VASCULATURE: No abdominal aortic aneurysm. MUSCULOSKELETAL: There is a nonspecific lytic lesion in the body of L3on the left. The cause is unknown. OTHER: No other abnormality. IMPRESSION: Cholelithiasis. Large amount of stool in the colon. Nonspecific lytic lesion in the body of L3 on the left. Correlation withthe patient's cancer history is recommended. Consider MRI of the lumbarspine. Distended bladder. Cirrhosis. Elongated opacity at the left lung base perhaps due to atelectasis. THIS IS AN ELECTRONICALLY VERIFIED FINAL REPORT 04/29/2024 12:58 PM - Electronically signed by Alphonso Chaudhry M.D. DORIS: DORIS Report ID: [id number] Reading Location: [place] [address] Zee Khan MD IMG CT PROCEDURES Final Result * eGFR (04/29/2024 4:53 AM MOTORCYCLE SERVICE TECHNICIAN) eGFR >90 >=60 mL/min/1. 73 m2 Comment: Interpretive Data Reference Interval Normal ?>/= 90 mL/min/1.73m2 Mildly decreased* ? 60 - 89 mL/min/1.73m2 Mildly to moderately decreased ?45 - 59 mL/min/1.73m2 Moderately to severely decreased ??30 - 44 mL/min/1.73m2 Severely decreased ?15 - 29 mL/min/1.73m2 Kidney Failure ?< 15 ??mL/min/1.73m2 *Relative to young adult level Estimated glomerular filtration rate is determined by the 2020 CKD-EPI equation recommended by the National Kidney [employer] (A Unifying Approach to GFR Estimation: Recommendations of the NKF-ASK Task Force on Reassessing the Inclusion of Race in Diagnosing Kidney Disease, JASN 2020). The CKD-EPI equation should not be used for patients with unstable renal function and has not been validated in children and those over 70. Current interpretive data was last reviewed 2021. Blood 04/29/2024 4:53 AM MOTORCYCLE SERVICE TECHNICIAN 04/29/2024 5:18 AM MOTORCYCLE SERVICE TECHNICIAN us Zee Khan MD LAB BLOOD ORDERABLES Fin al Result [facility] ([place]) 1 [facility] [place] [address] * Differential, auto (04/29/2024 4:53 AM MOTORCYCLE SERVICE TECHNICIAN) Neutrophil abs 2.2 1.5 - 6.5 K/cumm Imm gran abs 0.0 0.0 - 0.1 K/cumm [facility] ([place]) Lymphocyte abs 1.4 0.8 - 3.3 K/cumm [facility] ([place]) Monocyte abs 0.6 0.2 - 0.8 K/cumm [facility] ([place]) Eosinophil abs 0.2 0.0 - 0.5 K/cumm [facility] ([place]) Basophil abs 0.0 0.0 - 0.1 K/cumm [facility] ([place]) Neutrophil pct 49.5 % [facility] ([place]) Comment: Interpretive Data Percent cell count reference ranges are not reported, since discordance with absolute values may lead to misinterpretation of CBC data. Current Interpretive Data was last revised on 2017. Imm gran pct 0.2 % [facility] ([place]) Comment: Interpretive Data Percent cell count reference ranges are not reported, since discordance with absolute values may lead to misinterpretation of CBC data. Current Interpretive Data was last revised on 2017. Lymphocyte pct 32.7 % [facility] ([place]) Comment: Interpretive Data Percent cell count reference ranges are not reported, since discordance with absolute values may lead to misinterpretation of CBC data. Current Interpretive Data was last revised on 2017. Monocyte pct 13.2 % [facility] ([place]) Comment: Interpretive Data Percent cell count reference ranges are not reported, since discordance with absolute values may lead to misinterpretation of CBC data. Current Interpretive Data was last revised on 2017. Eosinophil pct 3.9 % [facility] ([place]) Comment: Interpretive Data Percent cell count reference ranges are not reported, since discordance with absolute values may lead to misinterpretation of CBC data. Current Interpretive Data was last revised on 2017. Basophil pct 0.5 % [facility] ([place]) Comment: Interpretive Data Percent cell count reference ranges are not reported, since discordance with absolute values may lead to misinterpretation of CBC data. Current Interpretive Data was last revised on 2017. Blood 04/29/2024 4:53 AM MOTORCYCLE SERVICE TECHNICIAN 04/29/2024 5:17 AM MOTORCYCLE SERVICE TECHNICIAN us Zee Khan MD LAB BLOOD ORDERABLES Fin al Result [facility] ([place]) 1 [facility] [place] [address] * (ABNORMAL) CBC with auto differential (04/29/2024 4:53 AM MOTORCYCLE SERVICE TECHNICIAN) WBC 4.4 3.8 - 9.9 K/cumm Hgb 13.3 11.9 - 15.5 g/dL [facility] ([place]) Hct 39.8 35.6 - 45.5 % [facility] ([place]) Plt 119(L) 150 - 400 K/cumm [facility] ([place]) MPV 10.1 9.1 - 12.3 fL [facility] ([place]) RBC 4.08 3.90 - 5.20 M/cumm [facility] ([place]) MCV 97.5(H) 81.3 - 96.4 fL [facility] ([place]) MCH 32.6 27.1 - 33.3 pg [facility] ([place]) MCHC 33.4 32.3 - 35.7 g/dL [facility] ([place]) RDW CV 13.4 11.1 - 14.9 % [facility] ([place]) RDW SD 47.5 35.7 - 48.[address] [facility] ([place]) NRBC abs 0.00 0.00 - 0.01 K/cumm [facility] ([place]) Blood 04/29/2024 4:53 AM MOTORCYCLE SERVICE TECHNICIAN 04/29/2024 5:17 AM MOTORCYCLE SERVICE TECHNICIAN Zee Khan MD LAB BLOOD ORDERABLES Fin al Result [facility]IE [facility] ([place] 1 [facility] [place] [address] * (ABNORMAL) Phosphorus (04/29/2024 4:53 AM MOTORCYCLE SERVICE TECHNICIAN) Phosphorus, pl 4.6(H) 2.3 - 4.5 mg/dL Blood 04/29/2024 4:53 AM MOTORCYCLE SERVICE TECHNICIAN 04/29/2024 5:18 AM MOTORCYCLE SERVICE TECHNICIAN Zee Khan MD LAB BLOOD ORDERABLES Fin al Result AMIE RE[facility] ([place]) 1 [facility] [place] [address] * Magnesium (04/29/2024 4:53 AM MOTORCYCLE SERVICE TECHNICIAN) Magnesium 1.6 1.4 - 2.5 mg/dL Blood 04/29/2024 4:53 AM MOTORCYCLE SERVICE TECHNICIAN 04/29/2024 5:18 AM MOTORCYCLE SERVICE TECHNICIAN Zee Khan MD LAB BLOOD ORDERABLES Fin al Result [facility]IE RE[facility] ([place]) 1 [facility] [place] [address] * Hepatic function panel (04/29/2024 4:53 AM MOTORCYCLE SERVICE TECHNICIAN) Bilirubin, total 0.3 0.1 - 1.2 mg/dL Bilirubin, direct 0.1 0.1 - 0.3 mg/dL [facility] ([place]) Protein, pl 6.9 6.5 - 8.5 g/dL [facility] ([place]) Albumin 3.6 3.5 - 5.0 g/dL [facility] ([place]) Alk phos 89 40 - 130 Units/L [facility] ([place]) ALT 16 7 - 45 Units/L [facility] AST 27 10 - 45 Units/L [facility] ([place]) Blood 04/29/2024 4:53 AM MOTORCYCLE SERVICE TECHNICIAN 04/29/2024 5:18 AM MOTORCYCLE SERVICE TECHNICIAN us Zee Khan MD LAB BLOOD ORDERABLES Fin al Result [facility] ([place]) 1 [facility] [place] [address] * Basic metabolic panel (04/29/2024 4:53 AM MOTORCYCLE SERVICE TECHNICIAN) Sodium 139 135 - 145 mmol/L Potassium, pl 3.8 3.3 - 4.9 mmol/L [facility] ([place]) Chloride 104 97 - 110 mmol/L [facility] [facility] ([facility] CO2 25 22 - 32 mmol/L [facility] ([facility]) Anion gap 10 2 - 15 mmol/L [facility] ([place]) BUN 23 6 - 25 mg/dL [facility] ([place]) Creatinine 0.61 0.60 - 1.10 mg/dL [facility] Glucose 85 70 - 199 mg/dL [facility] ([place]I) Comment: Interpretive Data Fasting glucose >/= 126 mg/dl is diagnostic for diabetes. ?? Fasting is defined as no caloric intake for at least 8 hours. Fasting glucose between 100 mg/dl to 125 mg/dl is diagnostic of prediabetes. In a patient with classic symptoms of hyperglycemia or hyperglycemic crisis, a random glucose >/= 200 mg/dl is diagnostic for diabetes. In the absence of unequivocal hyperglycemia, results should be confirmed by repeat testing. The classification and Diagnosis of Diabetes Diabetes Care 2021; 46: S19-S40. Current interpretive data was last revised 2022. Calcium 9.1 8.5 - 10.3 mg/dL [facility] ([facility]) Blood 04/29/2024 4:53 AM MOTORCYCLE SERVICE TECHNICIAN 04/29/2024 5:18 AM MOTORCYCLE SERVICE TECHNICIAN Zee Khan MD LAB BLOOD ORDERABLES Fin al Result Performing Organization Address City/[facility] Co de Phone Number [facility] ([place]I) 1 [facility] [place] [address] * Lipase (04/28/2024 1:16 PM MOTORCYCLE SERVICE TECHNICIAN) Lipase 90 10 - 99 Units/L Blood 04/28/2024 1:16 PM MOTORCYCLE SERVICE TECHNICIAN 04/28/2024 1:47 PM MOTORCYCLE SERVICE TECHNICIAN Zee Khan MD LAB BLOOD ORDERABLES Fin al Result Performing Organization Address [facility] de Phone Number [facility] 1 [facility] [place] [address] * Hepatic function panel (04/28/2024 1:16 PM MOTORCYCLE SERVICE TECHNICIAN) Bilirubin, total 0.3 0.1 - 1.2 mg/dL Bilirubin, direct <0.1 0.1 - 0.3 mg/dL [facility] ([facility]) Comment: Hemolysis present. ??Results may be affected. Moderately Hemolyzed Specimen Protein, pl 7.0 6.5 - 8.5 g/dL [facility] ([place]) Albumin 3.6 3.5 - 5.0 g/dL [facility] ([facility]) Alk phos 77 40 - 130 Units/L [facility] ([place]) ALT 18 7 - 45 Units/L [facility] ([facility]) Comment: Hemolysis present. ??Results may be affected. Moderately Hemolyzed Specimen AST 35 10 - 45 Units/L [facility] ([facility]) Comment: Hemolysis present. ??Results may be affected. Moderately Hemolyzed Specimen Blood 04/28/2024 1:16 PM MOTORCYCLE SERVICE TECHNICIAN 04/28/2024 2:18 PM MOTORCYCLE SERVICE TECHNICIAN us Zee Khan MD LAB BLOOD ORDERABLES Fin al Result Performing Organization Address [facility] Phone Number [facility] ([place] 1 [facility] Department of Laboratories [place] [id number] * eGFR (04/26/2024 8:41 AM MOTORCYCLE SERVICE TECHNICIAN) eGFR >90 >=60 mL/min/1. 73 m2 Comment: Interpretive Data Reference Interval Normal ?>/= 90 mL/min/1.73m2 Mildly decreased* ? 60 - 89 mL/min/1.73m2 Mildly to moderately decreased ?45 - 59 mL/min/1.73m2 Moderately to severely decreased ??30 - 44 mL/min/1.73m2 Severely decreased ?15 - 29 mL/min/1.73m2 Kidney Failure ?< 15 ??mL/min/1.73m2 *Relative to young adult level Estimated glomerular filtration rate is determined by the 2020 CKD-EPI equation recommended by the National Kidney Foundation (A Unifying Approach to GFR Estimation: Recommendations of the NKF-ASK Task Force on Reassessing the Inclusion of Race in Diagnosing Kidney Disease, JASN 2020). The CKD-EPI equation should not be used for patients with unstable renal function and has not been validated in children and those over 70. Current interpretive data was last reviewed 2021. Blood 04/26/2024 8:41 AM MOTORCYCLE SERVICE TECHNICIAN 04/26/2024 8:57 AM MOTORCYCLE SERVICE TECHNICIAN us Maddie White MD LAB BLOOD ORDERABLES Maeve l Result [facility] ([facility]) 1 [facility] [place] [address] * (ABNORMAL) CBC without differential (04/26/2024 8:41 AM MOTORCYCLE SERVICE TECHNICIAN) Pathologist [facility] WBC 6.4 3.8 - 9.9 K/cumm Hgb 13.8 11.9 - 15.5 g/dL [facility] ([facility]) Hct 40.1 35.6 - 45.5 % [facility] ([place]) Plt 115(L) 150 - 400 K/cumm [facility] ([facility]) MPV 10.1 9.1 - 12.3 fL [facility] ([facility]) RBC 4.21 3.90 - 5.20 M/cumm [facility] ([place]) MCV 95.2 81.3 - 96.4 fL [facility] ([place]) MCH 32.8 27.1 - 33.3 pg [facility] ([place]) MCHC 34.4 32.3 - 35.7 g/dL [facility] ([place]) RDW CV 13.2 11.1 - 14.9 % [facility] ([place]) RDW SD 45.2 35.7 - 48.1 fL [facility] ([place]) NRBC abs 0.00 0.00 - 0.01 K/cumm [facility] ([facility]) Blood 04/26/2024 8:41 AM MOTORCYCLE SERVICE TECHNICIAN 04/26/2024 8:57 AM MOTORCYCLE SERVICE TECHNICIAN us Maddie White MD LAB BLOOD ORDERABLES Maeve l Result [facility] ([facility]) 1 [facility] [place] [address] * Comprehensive metabolic panel (04/26/2024 8:41 AM MOTORCYCLE SERVICE TECHNICIAN) Pathologist [facility] Sodium 138 135 - 145 mmol/L Potassium, pl 3.3 3.3 - 4.9 mmol/L [facility] ([facility]) Chloride 103 97 - 110 mmol/L [facility] ([place]) CO2 22 22 - 32 mmol/L [facility] ([facility]) Anion gap 13 2 - 15 mmol/L [facility] ([facility]) BUN 21 6 - 25 mg/dL [facility] ([facility]) Creatinine 0.61 0.60 - 1.10 mg/dL [facility] ([facility]) Glucose 126 70 - 199 mg/dL [facility] ([facility]) Comment: Interpretive Data Fasting glucose >/= 126 mg/dl is diagnostic for diabetes. ?? Fasting is defined as no caloric intake for at least 8 hours. Fasting glucose between 100 mg/dl to 125 mg/dl is diagnostic of prediabetes. In a patient with classic symptoms of hyperglycemia or hyperglycemic crisis, a random glucose >/= 200 mg/dl is diagnostic for diabetes. In the absence of unequivocal hyperglycemia, results should be confirmed by repeat testing. The classification and Diagnosis of Diabetes Diabetes Care 2021; 46: S19-S40. Current interpretive data was last revised 2022. Calcium 9.0 8.5 - 10.3 mg/dL [facility] ([facility]) Bilirubin, total 0.6 0.1 - 1.2 mg/dL [facility] ([facility]) Protein, pl 7.1 6.5 - 8.5 g/dL [facility] ([place]) Albumin 3.8 3.5 - 5.0 g/dL [facility] ([place]) Alk phos 76 40 - 130 Units/L [facility] ([place]) ALT 16 7 - 45 Units/L [facility] ([place]) AST 24 10 - 45 Units/L [facility] ([facility]) Blood 04/26/2024 8:41 AM MOTORCYCLE SERVICE TECHNICIAN 04/26/2024 8:57 AM MOTORCYCLE SERVICE TECHNICIAN us Maddie White MD LAB BLOOD ORDERABLES Maeve lopez Result [facility] ([facility]) 1 [facility] Department of Laboratories [place], [place] [id number] * eGFR (04/25/2024 8:53 AM MOTORCYCLE SERVICE TECHNICIAN) eGFR >90 >=60 mL/min/1. 73 m2 Comment: Interpretive Data Reference Interval Normal ?>/= 90 mL/min/1.73m2 Mildly decreased* ? 60 - 89 mL/min/1.73m2 Mildly to moderately decreased ?45 - 59 mL/min/1.73m2 Moderately to severely decreased ??30 - 44 mL/min/1.73m2 Severely decreased ?15 - 29 mL/min/1.73m2 Kidney Failure ?< 15 ??mL/min/1.73m2 *Relative to young adult level Estimated glomerular filtration rate is determined by the 2020 CKD-EPI equation recommended by the National Kidney Foundation (A Unifying Approach to GFR Estimation: Recommendations of the NKF-ASK Task Force on Reassessing the Inclusion of Race in Diagnosing Kidney Disease, JASN 2020). The CKD-EPI equation should not be used for patients with unstable renal function and has not been validated in children and those over 70. Current interpretive data was last reviewed 2021. Blood 04/25/2024 8:53 AM MOTORCYCLE SERVICE TECHNICIAN 04/25/2024 8:55 AM MOTORCYCLE SERVICE TECHNICIAN us Chang Mckeon MD LAB BLOOD ORDERABLE S Final Result [facility] ([place]) 1 [facility] [place] [address] * (ABNORMAL) Differential, auto (04/25/2024 8:53 AM MOTORCYCLE SERVICE TECHNICIAN) Neutrophil abs 6.3 1.5 - 6.5 K/cumm Imm gran abs 0.0 0.0 - 0.1 K/cumm [facility] ([place]) Lymphocyte abs 0.6(L) 0.8 - 3.3 K/cumm [facility] ([place]) Monocyte abs 0.5 0.2 - 0.8 K/cumm [facility] ([place]) Eosinophil abs 0.0 0.0 - 0.5 K/cumm [facility] ([place]) Basophil abs 0.0 0.0 - 0.1 K/cumm [facility] ([facility]) Neutrophil pct 85.4 % [facility] ([facility]) Comment: Interpretive Data Percent cell count reference ranges are not reported, since discordance with absolute values may lead to misinterpretation of CBC data. Current Interpretive Data was last revised on 2017. Imm gran pct 0.4 % [facility] ([facility]) Comment: Interpretive Data Percent cell count reference ranges are not reported, since discordance with absolute values may lead to misinterpretation of CBC data. Current Interpretive Data was last revised on 2017. Lymphocyte pct 7.7 % [facility] ([facility]) Comment: Interpretive Data Percent cell count reference ranges are not reported, since discordance with absolute values may lead to misinterpretation of CBC data. Current Interpretive Data was last revised on 2017. Monocyte pct 6.4 % [facility] ([facility]) Comment: Interpretive Data Percent cell count reference ranges are not reported, since discordance with absolute values may lead to misinterpretation of CBC data. Current Interpretive Data was last revised on 2017. Eosinophil pct 0.0 % [facility] ([facility]) Comment: Interpretive Data Percent cell count reference ranges are not reported, since discordance with absolute values may lead to misinterpretation of CBC data. Current Interpretive Data was last revised on 2017. Basophil pct 0.1 % [facility] ([facility]) Comment: Interpretive Data Percent cell count reference ranges are not reported, since discordance with absolute values may lead to misinterpretation of CBC data. Current Interpretive Data was last revised on 2017. Blood 04/25/2024 8:53 AM MOTORCYCLE SERVICE TECHNICIAN 04/25/2024 8:55 AM MOTORCYCLE SERVICE TECHNICIAN us Chang Mckeon MD LAB BLOOD ORDERABLE S Final Result [facility] ([place]) 1 [facility] [place] [address] * (ABNORMAL) CBC with auto differential (04/25/2024 8:53 AM MOTORCYCLE SERVICE TECHNICIAN) WBC 7.4 3.8 - 9.9 K/cumm Hgb 14.8 11.9 - 15.5 g/dL [facility] Hct 42.1 35.6 - 45.5 % [facility] ([place]) Plt 123(L) 150 - 400 K/cumm [facility] ([place]) MPV 10.9 9.1 - 12.3 fL [facility] RBC 4.53 3.90 - 5.20 M/cumm [facility] ([place]) MCV 92.9 81.3 - 96.4 fL [facility] ([place]) MCH 32.7 27.1 - 33.3 pg [facility] ([place]) MCHC 35.2 32.3 - 35.7 g/dL [facility] RDW CV 13.1 11.1 - 14.9 % [facility] ([facility]) RDW SD 43.8 35.7 - 48.1 fL [facility] ([facility] NRBC abs 0.00 0.00 - 0.01 K/cumm [facility] Blood 04/25/2024 8:53 AM MOTORCYCLE SERVICE TECHNICIAN 04/25/2024 8:55 AM MOTORCYCLE SERVICE TECHNICIAN us Chang Mckeon MD LAB BLOOD ORDERABLE S Final Result [facility] ([facility]) 1 [facility] Department of Laboratories [place] [id number] * aPTT (04/25/2024 8:53 AM MOTORCYCLE SERVICE TECHNICIAN) aPTT 29 28 - 38 sec [facility] ([facility]) Comment: Interpretive Data Heparin therapeutic range: 66.0 - 100.0 seconds. Range based on correlation with therapeutic heparin activity range of 0.3 - 0.7 Units/mL. Current interpretive data was last revised on 2023. Blood 04/25/2024 8:53 AM MOTORCYCLE SERVICE TECHNICIAN 04/25/2024 5:58 PM MOTORCYCLE SERVICE TECHNICIAN us Maddie White MD LAB BLOOD ORDERABLES Maeve l Result Performing Organization Address City/[facility]/ZIP Co de Phone Number [facility] ([place]) 1 [place] [address] * Protime-INR (04/25/2024 8:53 AM MOTORCYCLE SERVICE TECHNICIAN) PT 11.5 9.7 - 13.0 sec [facility] ([place]) INR 1.06 0.90 - 1.20 [facility] ([place]) Comment: Interpretive data Oral anticoagulant therapeutic ranges: Venous thromboembolism prophylaxis or treatment: 2.0-3.0 CARDIOLOGY Standard range: 2.0-3.0 High-intensity range: 2.5-3.5 Refer to indication-specific guidelines for appropriate target ranges for prosthetic heart valve replacement. Current interpretive data was last revised on 2019. Blood 04/25/2024 8:53 AM MOTORCYCLE SERVICE TECHNICIAN 04/25/2024 5:58 PM MOTORCYCLE SERVICE TECHNICIAN us aMddie White MD LAB BLOOD ORDERABLES Maeve l Result Performing Organization Address [facility] Co de Phone Number [facility] ([place]) 1 [facility] [place] [address] * Magnesium (04/25/2024 8:53 AM MOTORCYCLE SERVICE TECHNICIAN) Magnesium 1.4 1.4 - 2.5 mg/dL Blood 04/25/2024 8:53 AM MOTORCYCLE SERVICE TECHNICIAN 04/25/2024 9:56 AM MOTORCYCLE SERVICE TECHNICIAN us Chang Mckeon MD LAB BLOOD ORDERABLE S Final Result Performing Organization Address City/[facility] Co de Phone Number [facility] ([place]) 1 [facility] [place] [address] * (ABNORMAL) Ethanol (04/25/2024 8:53 AM MOTORCYCLE SERVICE TECHNICIAN) Ethanol 59(H) <=10 mg/dL Comment: Interpretive Data Legal limit of intoxication > or = 80 mg/dL Levels > or = 400 mg/dL are potentially TOXIC. Current interpretive data was last revised on 2018. Blood 04/25/2024 8:53 AM MOTORCYCLE SERVICE TECHNICIAN 04/25/2024 8:55 AM MOTORCYCLE SERVICE TECHNICIAN us Chang Mckeon MD LAB BLOOD ORDERABLE S Final Result [facility] ([place]) 1 [facility] [place] [address] * (ABNORMAL) Comprehensive metabolic panel (04/25/2024 8:53 AM MOTORCYCLE SERVICE TECHNICIAN) Sodium 134(L) 135 - 145 mmol/L Potassium, pl 3.5 3.3 - 4.9 mmol/L [facility] ([place]) Chloride 99 97 - 110 mmol/L [facility] ([place]) CO2 21(L) 22 - 32 mmol/L [facility] ([place]) Anion gap 14 2 - 15 mmol/L [facility] ([place]) BUN 13 6 - 25 mg/dL [facility] ([place]) Creatinine 0.48(L) 0.60 - 1.10 mg/dL [facility] ([place]) Glucose 141 70 - 199 mg/dL [facility] ([place]) Comment: Interpretive Data Fasting glucose >/= 126 mg/dl is diagnostic for diabetes. ?? Fasting is defined as no caloric intake for at least 8 hours. Fasting glucose between 100 mg/dl to 125 mg/dl is diagnostic of prediabetes. In a patient with classic symptoms of hyperglycemia or hyperglycemic crisis, a random glucose >/= 200 mg/dl is diagnostic for diabetes. In the absence of unequivocal hyperglycemia, results should be confirmed by repeat testing. The classification and Diagnosis of Diabetes Diabetes Care 2021; 46: S19-S40. Current interpretive data was last revised 2022. Calcium 10.4(H) 8.5 - 10.3 mg/dL [facility] ([place]) Bilirubin, total 0.6 0.1 - 1.2 mg/dL [facility] ([place]) Protein, pl 8.7(H) 6.5 - 8.5 g/dL [facility] ([place]) Albumin 4.6 3.5 - 5.0 g/dL [facility] ([place]) Alk phos 89 40 - 130 Units/L [facility] ([place]) ALT 19 7 - 45 Units/L [facility] ([place]) AST 27 10 - 45 Units/L [facility] ([place]) Comment:Slightly Hemolyzed S pecimen Blood 04/25/2024 8:53 AM MOTORCYCLE SERVICE TECHNICIAN 04/25/2024 8:55 AM MOTORCYCLE SERVICE TECHNICIAN us Chang Mckeon MD LAB BLOOD ORDERABLE S Final Result [facility] ([place]) 1 [facility] [place] [address] * eGFR (04/25/2024 8:33 AM MOTORCYCLE SERVICE TECHNICIAN) eGFR >90 >=60 mL/min/1. 73 m2 Comment: Interpretive Data Reference Interval Normal ?>/= 90 mL/min/1.73m2 Mildly decreased* ? 60 - 89 mL/min/1.73m2 Mildly to moderately decreased ?45 - 59 mL/min/1.73m2 Moderately to severely decreased ??30 - 44 mL/min/1.73m2 Severely decreased ?15 - 29 mL/min/1.73m2 Kidney Failure ?< 15 ??mL/min/1.73m2 *Relative to young adult level Estimated glomerular filtration rate is determined by the 2020 CKD-EPI equation recommended by the National Kidney Foundation (A Unifying Approach to GFR Estimation: Recommendations of the NKF-ASK Task Force on Reassessing the Inclusion of Race in Diagnosing Kidney Disease, JASN 2020). The CKD-EPI equation should not be used for patients with unstable renal function and has not been validated in children and those over 70. Current interpretive data was last reviewed 2021. Blood 04/25/2024 8:33 AM MOTORCYCLE SERVICE TECHNICIAN 04/25/2024 8:41 AM MOTORCYCLE SERVICE TECHNICIAN us Jesenia Mckeon MD LAB BLOOD ORDERABLES Final Re sult [facility] ([place]) 1 [facility] [place] [address] * (ABNORMAL) Drugs of Abuse Screen, Urine without Confirmation (04/25/2024 8:33 AM MOTORCYCLE SERVICE TECHNICIAN) Amphetamine, ur Screen Positive, presumptive (A) CutOff 500ng/mL Comment: Interpretive Data - Amphetamines: ??Samples containing greater than 500 ng/mL d-methamphetamine ??or other cross-reacting amphetamine compounds are reported as positive. ??Amphetamine immunoassays are subject to significant false positive rates due to cross-reactivity of non-amphetamine drugs. Confirmatory testing required for definitive results. Current Interpretive Data was last reviewed 2022. Barbiturates, ur Not Detected CutOff 200ng/mL [facility] ([place]) Comment: Interpretive Data - Barbiturates: ??Samples containing greater than 200 ng/mL secobarbital or other cross-reacting barbiturate compounds are reported as positive. ??False positive and false negative results are possible. Confirmatory testing required for definitive results. Current Interpretive Data was last reviewed 2022. Benzodiazepines, ur Screen Positive, presumptive (A) CutOff 100ng/mL [facility] ([place]) Comment: Interpretive Data - Benzodiazepines: ??Samples containing greater than 100 ng/mL nordiazepam or other cross-reacting compounds are reported as positive. False positive and false negative results are possible. Confirmatory testing required for definitive results. Current Interpretive Data was last reviewed 2022. Cannabinoids, ur Screen Positive, presumptive (A) CutOff 50 ng/mL [facility] ([place]) Comment: Interpretive Data - Cannabinoids: ??Samples containing greater than 50 ng/mL delta-9 THC -COOH or other cross-reacting compounds are reported as positive. ??False positive and false negative results are possible. ??Confirmatory testing required for definitive results. Current Interpretive Data was last reviewed 2022. Cocaine, ur Not Detected CutOff 150ng/mL [facility] ([place]) Comment: Interpretive Data - Cocaine: ??Samples containing greater than 150 ng/mL benzoylecgonine or other cross-reacting compounds are reported as positive. False positive and false negative results are possible. Confirmatory testing required for definitive results. Current Interpretive Data was last reviewed 2022. Fentanyl, Ur Not Detected CutOff 5 ng/mL [facility] ([place]) Comment: Interpretive Data - Fentanyl: ??Samples containing greater than 5 ng/mL norfentanyl, fentanyl, or other cross-reacting fentanyl compounds are reported as positive. False positive and false negative results are possible. Confirmatory testing required for definitive results. Current Interpretive Data was last reviewed 2023. Methadone, ur Not Detected CutOff 300ng/mL [facility] ([place]) Comment: Interpretive Data - Methadone: ??Samples containing greater than 300 ng/mL d,l-methadone or other cross-reacting compounds are reported as positive. ??False positive and false negative results are possible. Confirmatory testing required for definitive results. Current Interpretive Data was last reviewed 2022. Opiates, ur Not Detected CutOff 300ng/mL [facility] ([place]) Comment: Interpretive Data - Opiates: ??Samples containing greater than 300 ng/mL morphine or other cross-reacting compounds are reported as positive. ??False positive and false negative results are possible. Confirmatory testing required for definitive results. Current Interpretive Data was last reviewed 2022. Oxycodone, ur Not Detected CutOff 100ng/mL [facility] ([place]) Comment: Interpretive Data - Oxycodone: ??Samples containing greater than 100 ng/mL oxycodone or other cross-reacting compounds are reported as ??positive. ??False positive and false negative results are possible. Confirmatory testing required for definitive results. Current Interpretive Data was last reviewed 2022. Phencyclidine, ur Not Detected CutOff 25 ng/mL [facility] ([place]) Comment: Interpretive Data - Phencyclidine: ??Samples containing greater than 25 ng/mL phencyclidine or other cross-reacting compounds are reported as positive. ??False positive and false negative results are possible. Confirmatory testing required for definitive results. Current Interpretive Data was last reviewed 2022. Urine Creatinine 208 mg/dL [facility] ([place]) Comment: Interpretive Data Urine Creatinine: < 10 mg/dL is extremely dilute = or > 10 but < 20 mg/dL is dilute = or > 20 mg/dL is normal Current Interpretive Data was last revised on 2017. Urine 04/25/2024 8:33 AM MOTORCYCLE SERVICE TECHNICIAN 04/25/2024 8:43 AM MOTORCYCLE SERVICE TECHNICIAN Narrative [facility] ([place]) - 04/25/2024 9:03 AM MOTORCYCLE SERVICE TECHNICIAN Drug of Abuse screening is performed by immunoassay for medical purposes only. ??This is not to be used for Pain Management purposes. us Jesenia Mckeon MD LAB URINE ORDERABLES Final Re sult [facility] ([place]) 1 [facility] [place] [address] * (ABNORMAL) CBC without differential (04/25/2024 8:33 AM MOTORCYCLE SERVICE TECHNICIAN) WBC 7.3 3.8 - 9.9 K/cumm Hgb 14.7 11.9 - 15.5 g/dL [facility] ([place]) Hct 41.6 35.6 - 45.5 % [facility] ([place]) Plt 121(L) 150 - 400 K/cumm [facility] ([place]) MPV 10.1 9.1 - 12.3 fL [facility] ([place]) RBC 4.53 3.90 - 5.20 M/cumm [facility] ([place]) MCV 91.8 81.3 - 96.4 fL [facility] ([place]) MCH 32.5 27.1 - 33.3 pg [facility] ([place]) MCHC 35.3 32.3 - 35.7 g/dL [facility] ([place]) RDW CV 12.9 11.1 - 14.9 % [facility] ([place]) RDW SD 42.5 35.7 - 48.1 fL [facility] ([place]) NRBC abs 0.00 0.00 - 0.01 K/cumm [facility] ([place]) Blood 04/25/2024 8:33 AM MOTORCYCLE SERVICE TECHNICIAN 04/25/2024 8:41 AM MOTORCYCLE SERVICE TECHNICIAN us Jesenia Mckeon MD LAB BLOOD ORDERABLES Final Re sult [facility] ([place]) 1 [facility] [place] [address] * (ABNORMAL) Comprehensive metabolic panel (04/25/2024 8:33 AM MOTORCYCLE SERVICE TECHNICIAN) Sodium 135 135 - 145 mmol/L Potassium, pl 3.4 3.3 - 4.9 mmol/L [facility] ([place]) Chloride 101 97 - 110 mmol/L [facility] ([place]) CO2 19(L) 22 - 32 mmol/L [facility] ([place]) Anion gap 15 2 - 15 mmol/L [facility] ([place]) BUN 13 6 - 25 mg/dL [facility] ([place]) Creatinine 0.47(L) 0.60 - 1.10 mg/dL [facility] ([place]) Glucose 156 70 - 199 mg/dL [facility] ([place]) Comment: Interpretive Data Fasting glucose >/= 126 mg/dl is diagnostic for diabetes. ?? Fasting is defined as no caloric intake for at least 8 hours. Fasting glucose between 100 mg/dl to 125 mg/dl is diagnostic of prediabetes. In a patient with classic symptoms of hyperglycemia or hyperglycemic crisis, a random glucose >/= 200 mg/dl is diagnostic for diabetes. In the absence of unequivocal hyperglycemia, results should be confirmed by repeat testing. The classification and Diagnosis of Diabetes Diabetes Care 2021; 46: S19-S40. Current interpretive data was last revised 2022. Calcium 10.3 8.5 - 10.3 mg/dL [facility] ([place]) Bilirubin, total 0.6 0.1 - 1.2 mg/dL [facility] ([place]) Protein, pl 8.7(H) 6.5 - 8.5 g/dL [facility] ([place]) Albumin 4.6 3.5 - 5.0 g/dL [facility] ([place]) Alk phos 91 40 - 130 Units/L [facility] ([place]) ALT 19 7 - 45 Units/L [facility] ([place]) AST 28 10 - 45 Units/L [facility] ([place]) Comment:Slightly Hemolyzed S pecimen Blood 04/25/2024 8:33 AM MOTORCYCLE SERVICE TECHNICIAN 04/25/2024 8:41 AM MOTORCYCLE SERVICE TECHNICIAN us Jesenia Mckeon MD LAB BLOOD ORDERABLES Final Re sult [facility] ([place]) 1 [facility] [place] [address] from Last 3 Months Insurance [employer] BETTER [facility] [place] Advance Directives For more information, please contact: [phone] * Full Code (Latest Code Status on File) Date Activated Date Inactivated Comments 04/25/2024 5:41 PM 05/07/2024 7:44 PM [facility] Teams [employer] Relationship Specialty Start Date End Date Bladimir Crowder MD [address] [place] [id number] PCP - General Family Medicine 04/25/24
--- OUTSIDE RECORDS SUMMARY | 2024-05-12 05:11 | XMS_ITS | Clinical Summary ---
Author Organization [facility] Address [address] [place] [address]. [place] [address] [place] [address] Care Team Providers Care Downstream Biomanufacturing Technician Name Role Phone Ruma Meade MD Primary Care Provider [phone] Allergies No known active allergies Medications gabapentin (NEURONTIN) 300 MG capsule Take 400 mg by mouth 3 (three) times daily. 11/03/2023 Active Active Problems Problem Noted Date Diagnosed Date Alcoholic pancreatitis (HHS/HCC) 01/13/2023 Pancreatitis (HHS/HCC) 01/11/2023 Encounters Date Type Department Care Team Description 05/09/[address] [facility] [address] [place] [address] Leticia Raymundo MD 04/03/2024 10:03 AM PHARMACY GRADUATE INTERN - 04/03/2024 11:59 PM PHARMACY GRADUATE INTERN Hospital Encounter [facility] [address] [place] [address] Leticia Raymundo MD Discharge Disposition: Home or Self Care (Routine Discharge) 04/03/2024 Travel 03/29/2024 9:00 AM PHARMACY GRADUATE INTERN - 03/29/2024 11:59 PM PHARMACY GRADUATE INTERN Hospital Encounter [facility] [address] [place] [address] Bladimir Latham MD Discharge Disposition: Home or Self Care (Routine Discharge) 03/28/2024 2:32 PM PHARMACY GRADUATE INTERN - 03/28/2024 11:59 PM [facility] Hospital Encounter [facility] [address] [place] [address] Leticia Raymundo MD Discharge Disposition: Home or Self Care (Routine Discharge) 03/28/[address] [facility] [address] [place] [address] Leticia Raymundo MD 03/28/2024 Travel 03/18/2024 3:01 PM PHARMACY GRADUATE INTERN - 03/18/2024 4:40 PM PHARMACY GRADUATE INTERN Emergency [facility] [address] [place] [address] [place] [address] Chin Cobb DO Abdominal Pain Discharge Disposition: Home or Self Care (Routine Discharge) 03/18/2024 Travel 03/06/[address] [place] [address] Samantha Mayo PA Referral 03/05/2024 9:30 AM PHARMACY GRADUATE INTERN Office Visit [address] [address] Samantha Mayo PA New Patient; Hand Pain (BILATERAL) 03/05/2024 Travel 02/29/2024 Chart Prep [address] [address] Samantha Mayo PA from Last 3 Months Family History Relation Status Comments Father Unknown Mother Social History Tobacco Use Types Packs/Day Years Used Date Smoking Tobacco: Never Smokeless Tobacco: Never Tobacco Cessation:Counseling Given: Not Answered Alcohol Use Standard Drinks/Week Comments Yes 0 [...] place to sleep or slept in a assisted (including now)? Yes 01/11/2023 Comments No Sex and Gender Information Value Date Recorded Sex Assigned at Not on file Legal Sex Female 2:39 PM CDT Gender Identity Not on file Sexual Orientation Not on file Last Filed Vital Signs Vital Sign Reading Time Taken Comments Blood Pressure 139/79 03/18/2024 4:25 PM PHARMACY GRADUATE INTERN Pulse 75 03/18/2024 4:25 PM PHARMACY GRADUATE INTERN Temperature 36.4 ??C (97.5 ??F) 03/18/2024 3:16 PM CS T Respiratory Rate 18 03/18/2024 4:25 PM PHARMACY GRADUATE INTERN Oxygen Saturation 98% 03/18/2024 4:25 PM PHARMACY GRADUATE INTERN Inhaled Oxygen Concentration - - Weight 68 kg (150 lb) 03/18/2024 3:16 PM PHARMACY GRADUATE INTERN Height 162.6 cm (5' 4 ) 03/18/2024 3:16 PM PHARMACY GRADUATE INTERN Body Mass Index 25.75 03/18/2024 3:16 PM PHARMACY GRADUATE INTERN Plan of Treatment Upcoming Encounters Date Type Department Care Team (Late st Contact Info) Description 05/26/2024 10:00 PM PHARMACY GRADUATE INTERN Hospital Encounter [facility] [address] [place] [address] Leticia Raymundo MD [address] [place] [address] Health Maintenance Due Date Last Done Comments Colorectal Cancer Screening Colonoscopy (10 Years) 1973 Annual Physical 1976 Hepatitis C 1991 DTaP, Tdap and Td Vaccines ( 1 - Tdap) 1992 Hepatitis B Vaccines (1 of 3 - 19+ 3-dose series) 1992 Zoster Vaccines (1 of 2) 2023 COVID-19 Vaccine ( - 2023-2 5 season) 2023 Influenza Adult (#1) 2024 Mammogram Screening 03/29/2026 03/29/2024 Meningococcal B Vaccine Aged Out No l onger eligible based on patient's age to complete this topic Meningococcal Vaccine Aged Out No nancy ta eligible based on patient's age to complete this topic Pneumococcal Vaccine: Pediat rics (0 to 5 Years) and At-Risk Patients (6 to 64 Years) Aged Out No longer eligi ble based on patient's age to complete this topic RSV Immunizations Under 20 Months Aged Out No longer eligible based on patient's age to complete this topic Procedures Procedure Name Priority Date/Time Associated Diagnosis Comments CT CHEST WO CON Routine 04/03/2024 10:16 AM PHARMACY GRADUATE INTERN Lung nodule MG SCREENING W BIRGIT LUCIAN DIGI Routine 03/29/2024 10:02 AM PHARMACY GRADUATE INTERN Visit for screening mammogram TBGOLD-TUBERCULOSIS TST CELL MEDIATED IMMUNITY Routine 03/28/2024 2:50 PM PHARMACY GRADUATE INTERN Lung nodule FUNGAL PANEL 1 Routine 03/28/2024 2:50 PM PHARMACY GRADUATE INTERN Lung nodule DRUG SCREEN RAPID STAT 03/18/2024 3:3 5 PM PHARMACY GRADUATE INTERN HC URINALYSIS AUTO W/MICRO STAT 03/18/2024 3:35 PM PHARMACY GRADUATE INTERN ETHANOL STAT 03/18/2024 3:28 PM PHARMACY GRADUATE INTERN MAGNESIUM STAT 03/18/2024 3:28 PM PHARMACY GRADUATE INTERN LIPASE STAT 03/18/2024 3:28 PM PHARMACY GRADUATE INTERN LDH, LACTATE DEHYDROGENASE STAT 03/18/2024 3:28 PM PHARMACY GRADUATE INTERN LACTIC ACID W REFLEX (SEPSIS) STAT 03/18/2024 3:28 PM PHARMACY GRADUATE INTERN COMPREHENSIVE METABOLIC PANEL STAT 03/18/2024 3:28 PM PHARMACY GRADUATE INTERN CBC W/DIFF AUTOMATED STAT 03/18/2024 3:28 PM PHARMACY GRADUATE INTERN from Last 3 Months Results * CT CHEST WO CON (04/03/2024 10:16 AM PHARMACY GRADUATE INTERN) Anatomical Region Laterality Modality Chest Computed Tomogra phy 04/03/2024 12:1 3 PM PHARMACY GRADUATE INTERN Impressions 04/03/2024 3:06 PM PHARMACY GRADUATE INTERN Impression: 1. Right lower lobe pulmonary nodule is less than 6 mm in size and is unchanged since at least 01/11/2023 and no follow-up recommended per Fleischner guidelines. 2. No other solid noncalcified pulmonary nodules. 3. Nodular liver contour, consistent with cirrhosis. 4. Cholelithiasis without evidence of acute cholecystitis. The attending radiologist has reviewed the image(s) and agrees with the content of this report. Ordered By: LETICIA RAYMUNDO Interpreted By: Faheem Carcamo MD, 04/03/2024 12:13 PM Narrative 04/03/2024 3:06 PM PHARMACY GRADUATE INTERN [address] [place] [address] Examination: CT CHEST WO CON Clinical Information: Pulmonary nodule Comparison:CT abdomen/pelvis 12/29/2023, 11/30/2023, and 01/11/2023 Technique: IV contrast: None. Oral contrast: None. Technical comments: Standard technique. Dose reduction: This CT exam was performed using one or more of the following dose reduction techniques: Automated exposure control, adjustment of the mA and/or kV according to patient size, and/or use of iterative reconstruction technique. Findings: MEDIASTINUM Support tubes and lines: None. Base of neck/thyroid: Negative. Heart: Normal in size. No pericardial effusion. Lymph nodes: No supraclavicular, axillary, internal mammary, mediastinal, or hilar adenopathy. VASCULATURE The thoracic aorta is normal in caliber. The main pulmonary artery appears normal in caliber. Coronary calcifications. Aortic valve calcifications. LUNGS AND PLEURA Lungs: Unchanged right lower lobe nodule measuring 5 mm (series 3 image 60); the nodule is unchanged since 01/11/2023. Left lower lobe benign calcified granuloma. Pleura: No pleural effusion, thickening, or calcification. UPPER ABDOMEN Nodular liver contour. No underlying hepatic masses visualized. Cholelithiasis without evidence of acute cholecystitis. BONES/SOFT TISSUES No significant lesion. Unremarkable body wall. Procedure Note Vivek Ellison MD - 04/03/[address] [place] [address] Examination: CT CHEST WO CON Clinical Information: Pulmonary nodule Comparison:CT abdomen/pelvis 12/29/2023, 11/30/2023, and 01/11/2023 Technique: IV contrast: None. Oral contrast: None. Technical comments: Standard technique. Dose reduction: This CT exam was performed using one or more of thefollowing dose reduction techniques: Automated exposure control,adjustment of the mA and/or kV according to patient size, and/or use ofiterative reconstruction technique. Findings: MEDIASTINUM Support tubes and lines: None. Base of neck/thyroid: Negative. Heart: Normal in size. No pericardial effusion. Lymph nodes: No supraclavicular, axillary, internal mammary, mediastinal,or hilar adenopathy. VASCULATURE The thoracic aorta is normal in caliber. The main pulmonary artery appearsnormal in caliber. Coronary calcifications. Aortic valve calcifications. LUNGS AND PLEURA Lungs: Unchanged right lower lobe nodule measuring 5 mm (series 3 image60); the nodule is unchanged since 01/11/2023. Left lower lobe benigncalcified granuloma. Pleura: No pleural effusion, thickening, or calcification. UPPER ABDOMEN Nodular liver contour. No underlying hepatic masses visualized.Cholelithiasis without evidence of acute cholecystitis. BONES/SOFT TISSUES No significant lesion. Unremarkable body wall. Impression: 1. Right lower lobe pulmonary nodule is less than 6 mm in size and isunchanged since at least 01/11/2023 and no follow-up recommended perFleischner guidelines. 2. No other solid noncalcified pulmonary nodules. 3. Nodular liver contour, consistent with cirrhosis. 4. Cholelithiasis without evidence of acute cholecystitis. The attending radiologist has reviewed the image(s) and agrees with thecontent of this report. Ordered By: LETICIA RAYMUNDO Interpreted By: Faheem Carcamo MD, 04/03/2024 12:13 PM us Leticia Raymundo MD CT Final Result * MG SCREENING W BIRGIT LUCIAN DIGI (03/29/2024 10:02 AM PHARMACY GRADUATE INTERN) Anatomical Region Laterality Modality Breast Bilateral Mammography 03/29/2024 11:5 4 AM PHARMACY GRADUATE INTERN Impressions 03/29/2024 11:55 AM PHARMACY GRADUATE INTERN IMPRESSION: No mammographic evidence of malignancy. Recommendation: 1: Routine Screening ??Bilateral ??in 1 Year Assessment: ACR BI-RADS 2 - BENIGN FINDING(S) Ordered By: BLADIMIR LATHAM Interpreted By: Varun Quevedo MD, 03/29/2024 11:54 AM Narrative 03/29/2024 11:55 AM PHARMACY GRADUATE INTERN [address] [place] [address] Examination: Digital screening mammogram with CAD. Clinical history: Asymptomatic patient presents for routine screening. Patient does not recall when or where prior studies may have been performed. New baseline. Comparison: None. Technique: Bilateral digital mammograms. The exam was interpreted with the use of a computer-aided detection (CAD) system. ??Additional 3-D tomosynthesis images were acquired. Tissue density: There are scattered areas of fibroglandular density. Findings: The breast tissue contains scattered fibroglandular densities. ?? Benign-appearing calcification and benign-appearing intramammary lymph nodes noted. No suspicious mass, microcalcification or area of architectural distortion can be identified. From a mammographic standpoint, routine followup in one year would seem adequate. us Bladimir Latham MD MAMMO Final Resul t * FUNGAL ANTIBODY PANEL (ID) (03/28/2024 2:50 PM PHARMACY GRADUATE INTERN) ASPERGILLUS FLAVUS AB Negative Negative 2:34 PM PHARMACY GRADUATE INTERN [facility] ASPERGILLUS NIGER AB Negative Negative 03/12 2:34 PM PHARMACY GRADUATE INTERN [facility] ASPERGILLUS FUMIGATUS AB Negative Negative 04/02/2024 2:34 PM PHARMACY GRADUATE INTERN [facility] Comment: ?Interpretive Criteria: ?? Negative: Antibody not detected ?? Positive: Antibody detected A positive result is represented by 1 or more precipitin bands, and may indicate fungus ball, allergic bronchopulmonary aspergillosis (EUSEBIO) or invasive aspergillosis. Generally, the appearance of 3-4 bands indicates either fungus ball or EUSEBIO. BLASTOMYCES AB Negative Negative 04/02/2024 2:34 PM PHARMACY GRADUATE INTERN [facility] Comment: ?Interpretive Criteria: ?? Negative: Antibody not detected ?? Positive: Antibody detected A positive result is diagnostic of active or recent blastomycosis and is found in approximately 80% of proven cases of blastomycosis. COCCIDIODES AB (ID) Negative Negative 04/02 2:34 PM PHARMACY GRADUATE INTERN [facility] Comment: Interpretive Criteria: ?Negative: ?? Antibody Not Detected ?Positive: ?? Antibody Detected The immunodiffusion (ID) procedure correlates both in sensitivity and clinical utility with the CF test. The ID test, which detects IgG directed to the F antigen, becomes positive within 4 weeks after infection and remains positive throughout clinically active disease. It is most useful in confirming the specificity of low CF titers, where lines of identity are formed with reference antisera. Positive ID reactions are diagnostic for coccidioidomycosis and usually indicate active or recent disease and remain detectable for up to 1 year thereafter. HISTOPLASMA CAPSULATUM H AB Negative Negative 04/02/2024 2:34 PM PHARMACY GRADUATE INTERN [facility] KRISTINA WESLEY Comment: This immunodiffusion assay is highly specific for Histoplasmosis infection but may have low sensitivity in early infection. Two different immunoprecipitin bands may be detected. The M band develops with acute infection, is often present in chronic infection, and may persist for months to years. The M band may be detected in persons with recent histoplasmin skin testing. The H band, which is usually present with the M band, generally suggests a chronic or severe acute infection. The presence of both the H and M bands is considered conclusive for the diagnosis of histoplasmosis. Test Performed by Tee Yu, [facility], [address] [place] [address] Shawn Christianson M.D., Ph.D., Director of Laboratories , [place] [id number] HISTOPLASMA CAPSULATUM M AB Negative Negative 04/02/2024 2:34 PM PHARMACY GRADUATE INTERN [facility] KRISTINA WESLEY 03/28/2024 2:50 PM PHARMACY GRADUATE INTERN Leticia Raymundo MD LABORATORY Final Result [employer] [id number], * QUANTIFERON TBGOLD TUBERCULOSIS TEST (03/28/2024 2:50 PM PHARMACY GRADUATE INTERN) TB1 AG MINUS NIL 0.03 IU/ML 03/29/20 1:43 PM PHARMACY GRADUATE INTERN [facility] TB2 AG MINUS NIL 0.01 IU/ML 03/29/20 24 1:43 PM PHARMACY GRADUATE INTERN [facility] TB QUANTIFERON NEGATIVE NEGATIVE 03/29/2024 1:43 PM PHARMACY GRADUATE INTERN [facility] TB INTERPRETATION M. tuberculosis infection unlikely but cannot be excluded especially when any illness is consistent with TB disease and/or likelihood of progression to disease is increased. ?? In patients at high risk to M. tuberculosis infection, a second test should be considered. 03/29/2024 1:43 PM PHARMACY GRADUATE INTERN [facility] 03/28/2024 2:50 PM PHARMACY GRADUATE INTERN Leticia Raymundo MD LABORATORY Final Result [facility] [address] [place] [address], [id number] * (ABNORMAL) DRUG SCREEN RAPID (03/18/2024 3:35 PM PHARMACY GRADUATE INTERN) Pathologist [facility] CANNABINOIDS SCREEN (U) POSITIVE(A) NEGATIVE 03/18/2024 3:57 PM PHARMACY GRADUATE INTERN [facility] PHENCYCLIDINE PCP (U) NEGATIVE NEGATIVE 03/18/2024 3:57 PM PHARMACY GRADUATE INTERN [facility] COCAINE METABOLITES (U) NEGATIVE NEGATIVE 03/18/2024 3:57 PM PHARMACY GRADUATE INTERN [facility] METHAMPHETAMINE SCREEN (U) NEGATIVE NEGATIVE 03/18/2024 3:57 PM PHARMACY GRADUATE INTERN [facility] OPIATE SCREEN (U) POSITIVE(A) NEGATIVE 2023 3:57 PM PHARMACY GRADUATE INTERN [facility] AMPHETAMINE SCREEN (U) NEGATIVE NEGATIVE 03/18/2024 3:57 PM PHARMACY GRADUATE INTERN [facility] BENZODIAZEPINES SCREEN (U) POSITIVE(A) NEGATIVE 03/18/2024 3:57 PM PHARMACY GRADUATE INTERN [facility] TRICYCLIC ANTIDEPRESSANT SCREEN (U) NEGATIVE NEGATIVE 03/18/2024 3:57 PM PHARMACY GRADUATE INTERN [facility] METHADONE (U) NEGATIVE NEGATIVE 03/18/2024 3:57 PM PHARMACY GRADUATE INTERN [facility] BARBITURATES SCREEN (U) NEGATIVE NEGATIVE 03/18/2024 3:57 PM PHARMACY GRADUATE INTERN [facility] OXYCODONE SCREEN (U) NEGATIVE NEGATIVE 03/18/2024 3:57 PM PHARMACY GRADUATE INTERN [facility] URINE TOX COMMENT THIS TEST METHODOLOGY IS DESIGNED AND OFFERED A RAPID TURNAROUND, QUALITATIVE SCREENING PROCEDURE TO AID IN THE IMMEDIATE MEDICAL ASSESSMENT OF PATIENTS SUSPECTED OF SUBSTANCE ABUSE. 03/18/2024 3:39 PM PHARMACY GRADUATE INTERN [facility] Comment: CLINICAL CONSIDERATION AND PROFESSIONAL JUDGMENT MUST BE APPLIED TO ANY DRUG OF ABUSE TEST RESULT, BOTH POSITIVE AND NEGATIVE. CONFIRMATORY QUANTITATIVE RESULTS ARE AVAILABLE THROUGH OUR REFERENCE [facility]AT[facility]. URINE SPECIMEN / Unknown 03/18/2024 3:35 PM PHARMACY GRADUATE INTERN us Chin Cobb DO URINE ORDERABLES Final Result [facility] [address] [place] [address], * (ABNORMAL) URINALYSIS (03/18/2024 3:35 PM PHARMACY GRADUATE INTERN) COLOR (U) YELLOW 03/18/2024 3:59 PM PHARMACY GRADUATE INTERN [facility] TRANSPARENCY CLEAR 03/18/2024 3:59 PM PHARMACY GRADUATE INTERN [facility] SPECIFIC GRAVITY (U) 1.020 1.000 - 1.025 03/18/2024 3:59 PM PHARMACY GRADUATE INTERN [facility] U PH 6.0 5.0 - 8.0 03/18/2024 3:59 PM PHARMACY GRADUATE INTERN [facility] LEUKOCYTES (U) NEGATIVE NEGATIVE 03/18/2024 3:59 PM PHARMACY GRADUATE INTERN [facility] NITRITES NEGATIVE NEGATIVE 03/18/2024 3:59 PM PHARMACY GRADUATE INTERN [facility] PROTEIN RANDOM (U) NEGATIVE NEGATIVE 03/18/2024 3:59 PM PHARMACY GRADUATE INTERN [facility] GLUCOSE (U) NEGATIVE NEGATIVE 03/18/2024 3:59 PM PHARMACY GRADUATE INTERN [facility] KETONES MG/DL (U) NEGATIVE NEGATIVE 03/18/2024 3:59 PM PHARMACY GRADUATE INTERN [facility] UROBILINOGEN 1.0(H) <1.0 EU/DL 03/18/2024 3:59 PM PHARMACY GRADUATE INTERN [facility] BILIRUBIN (U) NEGATIVE NEGATIVE 03/18/2024 3:59 PM PHARMACY GRADUATE INTERN [facility] BLOOD (U) NEGATIVE NEGATIVE 03/18/2024 3:59 PM PHARMACY GRADUATE INTERN [facility] WBC/HPF 0-5 0 - 5 /HPF 03/18/2024 3:59 PM PHARMACY GRADUATE INTERN [facility] RBC/HPF 0-5 0 - 5 /HPF 03/18/2024 3:59 PM PHARMACY GRADUATE INTERN [facility] EPI/LPF OCCASIONAL /LPF 03/18/2024 3:59 PM PHARMACY GRADUATE INTERN [facility] BACTERIA (U) 1+ /HPF 03/18/2024 3:59 PM PHARMACY GRADUATE INTERN [facility] URINE SPECIMEN OBTAINED BY CLEAN CATCH PROCEDURE / Unknown 03/18/2024 3:35 PM PHARMACY GRADUATE INTERN us Chin Cobb DO URINE ORDERABLES [place] [address], [place] [phone] * LACTIC ACID W REFLEX (SEPSIS) (03/18/2024 3:28 PM PHARMACY GRADUATE INTERN) LACTIC ACID VENOUS 1.1 0.4 - 2.0 MMOL/L 03/18/2024 3:54 PM PHARMACY GRADUATE INTERN [facility] 03/18/2024 3:28 PM PHARMACY GRADUATE INTERN us Chin Cobb DO LABORATORY Final Result Performing Organization Address City/[facility]/ZIP Co de Phone Number [facility] [address] [place] [address], [place] [phone] * (ABNORMAL) COMPREHENSIVE METABOLIC PANEL (03/18/2024 3:28 PM PHARMACY GRADUATE INTERN) SODIUM S/P/B 136 136 - 145 MMOL/L 03/18/2024 4:02 PM PHARMACY GRADUATE INTERN [facility] POTASSIUM S/P/B 3.7 3.5 - 5.1 MMOL/L 03/18/2024 4:02 PM PHARMACY GRADUATE INTERN [facility] CHLORIDE S/P/B 100 98 - 107 MMOL/L 03/18/2024 4:02 PM PHARMACY GRADUATE INTERN [facility] CO2 27.7 21.0 - 32.0 MMOL/L 03/18/2024 4:02 PM [facility] GLUCOSE 69(L) 70 - 99 MG/DL 03/18/2024 4:02 PM [facility] Comment: FASTING GLUCOSE 100 TO 125 MG/DL IS CONSISTENT WITH IMPAIRED FASTING GLUCOSE. FASTING GLUCOSE >125 MG/DL IS CONSISTENT WITH DIABETES. RANDOM GLUCOSE >200 MG/DL WITH HYPERGLYCEMIC SYMPTOMS IS CONSISTENT WITH DIABETES. PER ADA GUIDELINES BUN 17 6 - 24 MG/DL 03/18/2024 4:02 PM [facility] CREATININE S/P/B 0.61 0.55 - 1.02 MG/DL 03/18/2024 4:02 PM [facility] CALCIUM S/P/B 9.0 8.4 - 10.5 MG/DL 03/18/2024 4:02 PM [facility] BILIRUBIN TOTAL S/P/B 0.6 0.2 - 1.0 MG/DL 03/18/2024 4:02 PM [facility] Comment: THIS ASSAY IS NOT RECOMMENDED FOR PATIENTS UNDERGOING TREATMENT WITH ELTROMBOPAG DUE TO THE POTENTIAL FOR FALSELY ELEVATED RESULTS. ALKALINE PHOSPHATASE S/P/B 90 39 - 100 U/L 03/18/2024 4:02 PM [facility] AST 29 15 - 37 U/L 03/18/2024 4:02 PM [facility] ALT 26 14 - 59 U/L 03/18/2024 4:02 PM [facility] TOTAL PROTEIN S/P/B 7.3 6.4 - 8.2 G/DL 03/18/2024 4:02 PM [facility] ALBUMIN S/P/B 3.6 3.4 - 5.0 G/DL 03/18/2024 4:02 PM [facility] ANION GAP 8.3 5.0 - 15.0 MMOL/L 03/18/2024 4:02 PM [facility] OSMOLALITY (CALC) 282 MOSM/KG 024 4:02 PM [facility] Comment:REFERENCE RANGE NOT ESTABLISHED GFR ESTIMATE >90 >89 ML/MIN/1. 73 M2 03/18/2024 4:02 PM PHARMACY GRADUATE INTERN [facility] GFR NOTES GFR REFERENCE S: 03/18/2024 4:02 PM PHARMACY GRADUATE INTERN [facility] Comment: THE ESTIMATED GFR IS CALCULATED USING THE 2020 CKD-EPI EQUATION. THE FOLLOWING CATEGORIES FOR GRADING RENAL FUNCTION ARE RECOMMENDED BY THE INTERNATIONAL SOCIETY OF NEPHROLOGY (KDIGO 2012 CLINICAL PRACTICE GUIDELINE). G1,NORMAL OR HIGH: >89 ml/min/1.73 m2 G2,MILDLY DECREASED: 60-89 ml/min/1.73 m2 G3A,MILDLY TO MODERATELY DECREASED: 45-59 ml/min/1.73 m2 G3B,MODERATELY TO SEVERELY DECREASED: 30-44 ml/min/1.73 m2 G4,SEVERELY DECREASED: 15-29 ml/min/1.73 m2 G5,KIDNEY FAILURE: <15 ml/min/1.73 m2 03/18/2024 3:28 PM PHARMACY GRADUATE INTERN us Chin Cobb DO LABORATORY Final Result Performing Organization Address [facility]/ZIP Co de Phone Number [facility] [address] [place] [address], * LDH, LACTATE DEHYDROGENASE (03/18/2024 3:28 PM PHARMACY GRADUATE INTERN) LDH 155 81 - 234 UNITS/L 03/18/2024 4:10 PM PHARMACY GRADUATE INTERN [facility] 03/18/2024 3:28 PM PHARMACY GRADUATE INTERN us Chin Cobb DO LABORATORY Final Result Performing Organization Address [facility] de Phone Number [facility] [address] [place] [address], * (ABNORMAL) CBC W/DIFF AUTOMATED (03/18/2024 3:28 PM PHARMACY GRADUATE INTERN) WBC 4.01 4.00 - 10.80 x10'3/uL 03/18/2024 3:41 PM PHARMACY GRADUATE INTERN [facility] RBC 3.80(L) 4.10 - 5.40 x10'6/uL 03/18/2024 3:41 PM [facility] HGB 12.7 12.0 - 16.0 G/DL 03/18/2024 3:41 PM [facility] HCT 37.0 36.0 - 47.0 % 03/18/2024 3:41 PM [facility] MCV 97.4 78.0 - 100.0 FL 03/18/2024 3:41 PM [facility] MCH 33.4(H) 27.0 - 31.0 PG 03/18/2024 3:41 PM [facility] MCHC 34.3 33.0 - 36.0 G/DL 03/18/2024 3:41 PM [facility] RDW 12.0 11.5 - 14.5 % 03/18/2024 3:41 PM [facility] PLT 87(L) 150 - 350 x10'3/uL 03/18/2024 3:41 PM [facility] MPV 10.3 7.4 - 10.4 FL 03/18/2024 3:41 PM [facility] CBC COMMENT NORMAL REFERENCE RANGE NOT ESTABLISHED FOR THE PROPORTIONAL LEUKOCYTE DIFFERENTIAL. 03/18/2024 3:41 PM [facility] NEUTROPHILS % 51.4 % 03/18/2024 4:15 PM [facility] LYMPHOCYTES % 36.2 % 03/18/2024 4:15 PM [facility] MONOCYTES % 9.2 % 03/18/2024 4:15 PM [facility] EOSINOPHILS % 2.5 % 03/18/2024 4:15 PM [facility] BASOPHILS % 0.5 % 03/18/2024 4:15 PM [facility] IMMATURE GRANS % 0.2 % 03/18/20 4:15 PM [facility] NRBC % 0.0 % 03/18/2024 4:15 PM [facility] ABS. NEUTROPHILS 2.06 1.60 - 8.30 x10'3/uL 03/18/2024 4:15 PM [facility] ABS. LYMPHOCYTES 1.45 0.80 - 4.70 x10'3/uL 03/18/2024 4:15 PM PHARMACY GRADUATE INTERN [facility] ABS. MONOCYTES 0.37 0.00 - 1.50 x10'3/uL 03/18/2024 4:15 PM PHARMACY GRADUATE INTERN [facility] ABS. EOSINOPHILS 0.10 0.00 - 0.40 x10'3/uL 03/18/2024 4:15 PM PHARMACY GRADUATE INTERN [facility] ABS. BASOPHILS 0.02 0.00 - 0.20 x10'3/uL 03/18/2024 4:15 PM PHARMACY GRADUATE INTERN [facility] ABS. IMMATURE GRANULOCYTES 0.01 0.00 - 0.03 x10'3/uL 03/18/2024 4:15 PM PHARMACY GRADUATE INTERN [facility] ABS. NUCLEATED RBC'S 0.00 0.00 - 0.01 x10'3/uL 03/18/2024 4:15 PM PHARMACY GRADUATE INTERN [facility] PLT MORPH. DECREASED 03/18/2024 4:15 PM PHARMACY GRADUATE INTERN [facility] RBC MORPHOLOGY NORMAL 03/18/2024 4:15 PM PHARMACY GRADUATE INTERN [facility] 03/18/2024 3:28 PM PHARMACY GRADUATE INTERN us Chin Cobb DO LABORATORY Final Result Performing Organization Address [facility] [place] [address], * (ABNORMAL) MAGNESIUM (03/18/2024 3:28 PM PHARMACY GRADUATE INTERN) MAGNESIUM 1.6(L) 1.8 - 2.4 MG/DL 03/18/2024 4:10 PM PHARMACY GRADUATE INTERN [facility] 03/18/2024 3:28 PM PHARMACY GRADUATE INTERN us Chin Cobb DO LABORATORY Final Result Performing Organization Address City/[facility]/ZIP Co de Phone Number [facility] [address] [place] [address], * (ABNORMAL) LIPASE (03/18/2024 3:28 PM PHARMACY GRADUATE INTERN) LIPASE 83(H) 16 - 77 UNITS/L 03/18/2024 4:10 PM PHARMACY GRADUATE INTERN [facility] 03/18/2024 3:28 PM PHARMACY GRADUATE INTERN us Chin Cobb DO LABORATORY Final Result Performing Organization Address [facility]/ZIP Co de Phone Number [facility] [address] [place] [id number], * ETHANOL (03/18/2024 3:28 PM PHARMACY GRADUATE INTERN) ALCOHOL S/P/B <0.003 <0.003 G/DL 03/18/2024 4:02 PM PHARMACY GRADUATE INTERN [facility] 03/18/2024 3:28 PM PHARMACY GRADUATE INTERN us Chin Cobb DO LABORATORY Final Result Performing Organization Address [facility] de Phone Number [facility] [address] [place] [address], from Last 3 Months Insurance MEDICAID Advance Directives * Full Code (Latest Code Status on File) Date Activated Date Inactivated Comments 01/11/2023 7:19 PM 01/14/2023 10:44 PM Care Teams [employer]stream [employer] Relationship Specialty Start Date End Date Ruma Meade MD [address] [place] [id number] PCP - General FAMILY PRACTICE 03/18/24
--- OUTSIDE RECORDS SUMMARY | 2024-05-12 05:11 | XMS_ITS | Clinical Summary ---
Author Organization [facility] Address [address] [place] [address] Care Team Providers Care Still Photographer Name Role Phone Bladimir Crowder MD Primary Care Provider Allergies No known active allergies Medications gabapentin [...] needed for nausea or vomiting 20 tablet 01/17/202024 Discontinued(D uplicate order) prazosin (MINIPRESS) 1 mg capsule Take 3 capsules (3 mg total) by mouth nightly 04/12/19 25 2024 Discontinued(S top Taking at Discharge) traZODone (DESYREL) 100 mg tablet Take 1.5 tablets (150 mg total) by mouth nightly 04/12/192024 Discontinued(S top Taking at Discharge) Ativan 0.5 mg tablet Take 1 tablet (0.5 mg total) by mouth every 6 (six) hours as needed for anxiety 04/12/192024 Discontinued(S top Taking at Discharge) methylPREDNISolon e [...] 05/02/2024 Alcohol withdrawal syndrome without complication 04/25/2024 Encounters Date Type Department Care Team Description 05/08/2024 Telephone [facility] [id number] [phone] Shara Yates DO 05/07/2024 Documentation [facility] [address] [place] [phone] Latrice Dumont 05/05/2024 Documentation [facility] [address] [place] [phone] Hilario, Jana EValentín 05/03/2024 Documentation [facility] [address] [place], [place] [phone] Hilario, Jana EValentín 05/02/2024 Documentation [facility] [address] [place] [phone] Latrice Dumont 05/01/2024 Documentation [facility] [address] [place] [phone] Hilario, Jana EValentín 04/30/2024 Documentation [facility] [address] [place] [phone] Latrice Duomnt 04/29/2024 Documentation [facility] [address] [place], [place] [phone] Latrice Dumont 04/27/2024 [facility] Enrollment [facility] [address] [place], [place] [phone] Hilario, Jana EValentín 04/25/2024 10:50 AM LINE LEADER - 05/07/2024 3:39 PM LINE LEADER Hospital Encounter [address] [address] Maddie White MD Sargsyan, Narine, MD Sinha, Chandni, MD Abegunde, Veronica O., MD Nations, Matthew Austin, Alcohol withdrawal syndrome without complication (HCC) (Primary Dx); Unspecified mood disorder (HCC) Discharge Disposition: Discharge to home or self care 04/25/2024 10:30 AM LINE LEADER Hospital Encounter [facility] [address] [place] [phone] Jesenia Mckeon MD 04/25/2024 8:30 AM LINE LEADER Lab [address] [phone] 04/25/2024 Documentation [facility] [address] [place] [address] Jana Hilario 04/25/2024 Documentation [facility] [address] [place] [address] Jana Hilario 04/23/2024 Documentation [facility] [address] [place] [address] Latrice Dumont from Last 3 Months Social History Tobacco Use Types Packs/Day Years [...] on file Sexual Orientation Not on file Obstetrics History Last Filed Vital Signs Vital Sign Reading Time Taken Comments Blood Pressure 118/80 05/07/2024 10:52 AM LINE LEADER Pulse 74 05/07/2024 10:52 AM LINE LEADER Temperature 36.6 ??C (97.9 ??F) 05/07/2024 10:[address] Respiratory Rate 20 05/07/2024 10:52 AM LINE LEADER Oxygen Saturation 91% 05/07/2024 10:52 AM LINE LEADER Inhaled Oxygen Concentration - - Weight 78.6 kg (173 lb 4.5 oz) 05/02/2024 1:12 A M LINE LEADER Height 165.1 cm (5' 5 ) 04/29/2024 3:24 PM LINE LEADER Body Mass Index 28.84 04/29/2024 3:24 PM LINE LEADER Plan of Treatment Health Maintenance Due Date Last Done Comments Colon Cancer Screening-Colonoscopy 1975 Depression Screening 1975 Hepatitis C Screening 1973 Pneumococcal vaccine <65 (1 of 2 - PCV) 1979 DTaP/Tdap/Td Vaccine (1 - Tdap) 1984 Hepatitis B Screening 1991 Regular Well Visit/Exam 18-64 1991 Zoster Vaccine (1 of 2) 2023 Influenza Vaccine (#1) 2023 Breast Cancer Screening-Mammogram 03/29/2025 024, 03/29/2024 Procedures Procedure Name Priority Date/Time Associated Diagnosis Comments EGFR Routine 05/05/2024 12:12 PM LINE LEADER CBC WITHOUT DIFFERENTIAL Routine 05/05/2024 12:12 PM LINE LEADER COMPREHENSIVE METABOLIC PANEL Routine 05/05/2024 12:12 PM LINE LEADER TRANSTHORACIC ECHO (TTE) COMPLETE W DOPPLER/CF WO CONTRAST Routine 05/04/2024 7:30 AM LINE LEADER US UPPER EXTREMITY RIGHT LIMITED IP Routine 05/03/2024 2:05 PM LINE LEADER BLOOD CULTURE Routine 05/03/2024 1:35 PM LINE LEADER BLOOD CULTURE Routine 05/03/2024 11:25 AM LINE LEADER TROPONIN T HIGH-SENSITIVITY 6-HOUR Timed 05/02/2024 11:01 AM LINE LEADER TROPONIN T HIGH-SENSITIVITY 2-HOUR Timed 05/02/2024 6:37 AM LINE LEADER TROPONIN T HIGH-SENSITIVITY SERIES (BASELINE, 2HR, 4HR, 6HR) Routine 05/02/2024 4:17 AM LINE LEADER ECG 12-LEAD Routine 05/02/2024 2:17 AM LINE LEADER US ABDOMEN LIMITED IP Routine 05/01/2024 3: 50 PM LINE LEADER APTT STAT 05/01/2024 2:50 PM LINE LEADER PROTIME-INR STAT 05/01/2024 2:50 PM LINE LEADER URINALYSIS, MICROSCOPIC ONLY Routine 05/01/2024 10:44 AM LINE LEADER URINALYSIS AND REFLEX TO MICROSCOPIC AND CULTURE Routine 05/01/2024 10:44 AM LINE LEADER RESPIRATORY PATHOGEN PANEL Routine 05/01/2024 10:04 AM LINE LEADER XR CHEST 1 VIEW IP Routine 05/01/2024 9:53 AM LINE LEADER EGFR STAT 05/01/2024 8:52 AM LINE LEADER LACTATE STAT 05/01/2024 8:52 AM LINE LEADER COMPREHENSIVE METABOLIC PANEL STAT 05/01/2024 8:52 AM LINE LEADER CBC WITHOUT DIFFERENTIAL STAT 05/01/2024 8:52 AM LINE LEADER BLOOD CULTURE Routine 04/30/2024 8:47 PM LINE LEADER BLOOD CULTURE Routine 04/30/2024 8:47 PM LINE LEADER MRI LUMBAR SPINE WO CONTRAST IP Routine 04/30/2024 2:[address] ABDOMEN PELVIS W CONTRAST IP Routine 04/29/2024 9:22 AM LINE LEADER EGFR Routine 04/29/2024 4:53 AM LINE LEADER DIFFERENTIAL AUTO Routine 04/29/2024 4:5 3 AM LINE LEADER PHOSPHORUS Routine 04/29/2024 4:53 AM LINE LEADER MAGNESIUM Routine 04/29/2024 4:53 AM LINE LEADER HEPATIC FUNCTION PANEL Routine 04/29/2024 4:53 AM LINE LEADER CBC WITH AUTO DIFFERENTIAL Routine 04/29/2024 4:53 AM LINE LEADER BASIC METABOLIC PANEL Routine 04/29/2024 4:53 AM LINE LEADER HEPATIC FUNCTION PANEL Add-On 04/28/2024 1:16 PM LINE LEADER LIPASE STAT 04/28/2024 1:16 PM LINE LEADER EGFR Routine 04/26/2024 8:41 AM LINE LEADER COMPREHENSIVE METABOLIC PANEL Routine 04/26/2024 8:41 AM LINE LEADER CBC WITHOUT DIFFERENTIAL Routine 04/26/2024 8:41 AM LINE LEADER APTT STAT 04/25/2024 8:53 AM LINE LEADER PROTIME-INR STAT 04/25/2024 8:53 AM LINE LEADER MAGNESIUM Add-On 04/25/2024 8:53 AM LINE LEADER EGFR STAT 04/25/2024 8:53 AM LINE LEADER DIFFERENTIAL AUTO STAT 04/25/2024 8:5 3 AM LINE LEADER ETHANOL STAT 04/25/2024 8:53 AM LINE LEADER COMPREHENSIVE METABOLIC PANEL STAT 04/25/2024 8:53 AM LINE LEADER CBC WITH AUTO DIFFERENTIAL STAT 04/25/2024 8:53 AM LINE LEADER EGFR STAT 04/25/2024 8:33 AM LINE LEADER DRUGS OF ABUSE SCREEN, URINE WITHOUT CONFIRMATION Routine 04/25/2024 8:33 AM LINE LEADER CBC WITHOUT DIFFERENTIAL STAT 04/25/2024 8:33 AM LINE LEADER COMPREHENSIVE METABOLIC PANEL STAT 04/25/2024 8:33 AM LINE LEADER from Last 3 Months Results * eGFR (05/05/2024 12:12 PM LINE LEADER) eGFR >90 >=60 mL/min/1. 73 m2 Comment: [...] reviewed 2021. Blood 05/05/2024 12:1 2 PM LINE LEADER 05/05/2024 12:26 PM LINE LEADER us Shara Yates DO LAB BLOOD ORDERABLES F inal Result [facility] ([place]) 1 [facility] Department [place] [address] * (ABNORMAL) CBC without differential (05/05/2024 12:12 PM LINE LEADER) WBC 4.3 3.8 - 9.9 K/cumm Hgb 12.4 11.9 - 15.5 g/dL [facility] ([place]) Hct 36.7 35.6 - 45.5 % [facility] ([place]) Plt 117(L) 150 - 400 K/cumm [facility] ([place]) MPV 10.2 9.1 - 12.3 fL [facility] ([place]) RBC 3.87(L) 3.90 - 5.20 M/cumm [facility] ([place]) MCV 94.8 81.3 - 96.4 fL [facility] ([place]) MCH 32.0 27.1 - 33.3 pg [facility] ([place]) MCHC 33.8 32.3 - 35.7 g/dL [facility] ([place]) RDW CV 13.3 11.1 - 14.9 % [facility] ([place] RDW SD 46.5 35.7 - 48.1 fL [facility] ([place]) NRBC abs 0.00 0.00 - 0.01 K/cumm [facility] ([place]) Blood 05/05/2024 12:1 2 PM LINE LEADER 05/05/2024 12:26 PM LINE LEADER Shara Zach [facility] DO LAB BLOOD ORDERABLES F inal Result [facility] ([place]) 1 [facility] Department [place] [address] * (ABNORMAL) Comprehensive metabolic panel (05/05/2024 12:12 PM LINE LEADER) Sodium 138 135 - 145 mmol/L Potassium, pl 4.1 3.3 - 4.9 mmol/L [facility] ([place]) Chloride 104 97 - 110 mmol/L [facility] ([place]) CO2 24 22 - 32 mmol/L [facility] ([place] Anion gap 11 2 - 15 mmol/L [facility] ([place]) BUN 12 6 - 25 mg/dL [facility] ([place]) Creatinine 0.45(L) 0.60 - 1.10 mg/dL [facility] ([place]) Glucose 102 70 - 199 mg/dL [facility] ([place]) [...] classification and Diagnosis of Diabetes Diabetes Care 202; 46: S19-S40. Current interpretive data was last [...] [facility] ([place]) Blood 05/05/2024 12:1 2 PM LINE LEADER 05/05/2024 12:26 PM LINE LEADER Shara Serrano [facility] DO LAB BLOOD ORDERABLES F inal Result [facility] ([place]) 1 [facility] Department [place] [address] * TRANSTHORACIC ECHO (TTE) COMPLETE W DOPPLER/CF WO CONTRAST (05/04/2024 7:30 AM LINE LEADER) LV EF 60-65 % CONS SCIMAGE Anatomical Region Laterality Modality Ultrasound 05/04/2024 7:13 AM LINE LEADER Narrative 05/04/2024 4:47 PM LINE LEADER [address] [place] [address] Echocardiogram Report Patient Name: LATRICE VALENCIA : 1975 Study Date: 05/04/2024 7:13:46 AM Gender: F Tech: Location: [address] Provider: SHARA YATES ?Height(Cm): 165 BSA: 1.74 [...] By: Kwaku Blanco MD 05/04/2024 4:46:44 PM LINE LEADER Procedure Note Kwaku Blanco MD - 05/04/[address] [address] Echocardiogram Report Patient Name: LATRICE VALENCIA : 1975 Study Date: 05/04/2024 7:13:46 AM Gender: F Tech: Location: [id number] Ref Provider: SHARA YATES Height(Cm): 165 BSA: [...] By: Kwaku Blanco MD 05/04/2024 4:46:44 PM LINE LEADER Shara Serrano [facility] DO CV ECHO PROCEDURES Fin al Result * US Upper Extremity Right Limited (05/03/2024 2:05 PM LINE LEADER) Anatomical Region Laterality Modality Upper Extremities Right Ultrasound 05/03/2024 4:48 PM LINE LEADER Narrative 05/03/2024 4:51 PM LINE LEADER EXAM DESCRIPTION: ?? US UPPER EXTREMITY RIGHT LIMITED REASON FOR STUDY: ?? Patient with cellulitis at site of right forearm prior IV site. Firmness at this area, wanting to rule out an abscess. ?? TECHNIQUE: A Dynamic assessment was performed of the soft tissues in the right elbow region by the cnc mill set up operator, with selected grayscale and color Doppler images [...] PM T: ??05/03/2024 4:51 PM Report ID: [id number] Reading Location: ??[id number] Procedure Note Boyd Cook MD - 05/03/2024 EXAM DESCRIPTION: US UPPER EXTREMITY RIGHT LIMITED REASON FOR STUDY: Patient with cellulitis at site of right forearm priorIV site. Firmness at this area, wanting to rule out an abscess. TECHNIQUE: A Dynamic assessment was performed of the soft tissues in theright elbow region by the cnc mill set up operator, with selected grayscale and color Doppler images acquired and recorded in PACS. COMPARISON: None FINDINGS: Thrombus is seen within a superficial vein within the region of concern,with prominent peripheral vascularity. IMPRESSION: Superficial thrombophlebitis within the region of concern. THIS IS AN ELECTRONICALLY VERIFIED FINAL REPORT 05/03/2024 4:51 PM - Electronically signed by Boyd Cook M.D. KR: CHANG Report ID: [id number] Reading Location: [id number] Shara Serrano [facility] DO IMG US PROCEDURES Maeve l Result * Blood culture Blood (05/03/2024 1:35 PM LINE LEADER) Report Final Report: No growth Comment:Testing performed by : [facility], 1 [facility], [place]., [address] Blood 05/03/2024 1:35 PM LINE LEADER 05/03/2024 4:30 PM LINE LEADER Kris RE[facility]E ([place]) - 05/08/2024 7:00 AM LINE LEADER From a different site than #1. Collection->Peripheral [...] performance characteristics have been verified by the [facility] Microbiology Laboratory. For questions about this culture, contact the Microbiology Laboratory at [phone]. Interpretive data was last revised on 24. Shara Yates DO LAB MICROBIOLOGY - GEN ERAL ORDERABLES Final Result AMIE [facility] ([place]) 1 [facility] Department of Laboratories [place], [place] [phone] * Blood culture Blood (05/03/2024 11:25 AM LINE LEADER) Report Final Report: No growth Comment:Testing performed by : [facility], 1 [place] [address] Blood 05/03/2024 11:2 5 AM LINE LEADER 05/03/2024 1:53 PM LINE LEADER Narrative [facility] ([place]) - 05/07/2024 4:00 PM LINE LEADER Collection->Peripheral 1. ?Blood cultures are incubated for [...] performance characteristics have been verified by the [facility] Microbiology Laboratory. For questions about this culture, contact the Microbiology Laboratory at [phone]. Interpretive data was last revised on 24. Shara Yates DO LAB MICROBIOLOGY - GEN ERAL ORDERABLES Final Result Performing Organization Address City/[facility]/ZIP Co de Phone Number [facility] ([place]) 1 [facility] [place] [address] * Troponin T high-sensitivity 6-hour (05/02/2024 11:01 AM LINE LEADER) Trop T hs <6 <=14 ng/L Comment: Interpretive Data For further hscTnT resources including the diagnostic algorithm and an aid in interpretation, copy and paste this link: https://nrl.testcatalog.org/show/hsTrop Current Interpretive Data last revised 2020. Trop T hs delta 0 ng/L [facility] ([place]) Trop T hs interp Insignificant [facility] ([place]) Blood 05/02/2024 11:0 1 AM LINE LEADER 05/02/2024 11:11 AM LINE LEADER us Guille Wall MD LAB BLOOD ORDERABLES Final Resu lt [facility] ([place]) 1 [facility] [place] [address] * Troponin T high-sensitivity 2-hour (05/02/2024 6:37 AM LINE LEADER) Trop T hs <6 <=14 ng/L Comment: Interpretive Data For further hscTnT resources including the diagnostic algorithm and an aid in interpretation, copy and paste this link: https://nrl.testcatPopcorn network.org/show/hsTrop Current Interpretive Data last revised 2020. Trop T hs delta 0 ng/L [facility] ([place]) Trop T hs interp Insignificant [facility] ([place]) Blood 05/02/2024 6:37 AM LINE LEADER 05/02/2024 7:06 AM LINE LEADER Guille Wall MD LAB BLOOD ORDERABLES Final Resu lt Performing Organization Address [facility]/ZIP Co de Phone Number [facility] ([place]) 1 [facility] [place] [address] * Troponin T high-sensitivity series (baseline, 2hr, 4hr, 6hr) (05/02/2024 4:17 AM LINE LEADER) Trop T hs <6 <=14 ng/L Comment: Interpretive Data For further hscTnT resources including the diagnostic algorithm and an aid in interpretation, copy and paste this link: https://nrl.testcatPopcorn network.org/show/hsTrop Current Interpretive Data last revised 2020. Blood 05/02/2024 4:17 AM LINE LEADER 05/02/2024 4:40 AM LINE LEADER Guille Wall MD LAB BLOOD ORDERABLES Final Resu lt [facility] ([place]) 1 [facility] [place] [address] * ECG 12 lead (05/02/2024 2:17 AM LINE LEADER) 05/02/2024 2:17 AM LINE LEADER Narrative [facility] - 05/02/2024 7:39 AM LINE LEADER Vent Rate: 73 bpm RR Interval: 816 msec UT Interval: 180 msec QRS Duration: 84 msec QT Interval: 397 msec QTC Interval: 423 msec P-R-T [place]: 40 - -21 - 31 degrees IMPRESSION: SINUS RHYTHM WITH SINUS ARRHYTHMIA BORDERLINE LEFT AXIS DEVIATION [QRS AXIS < -20] BORDERLINE ECG Electronically Signed By: Kwaku Blanco MD Guille Wall MD ECG ORDERABLES Final Result [facility] * US Abdomen Limited (05/01/2024 3:50 PM LINE LEADER) Anatomical Region Laterality Modality Abdomen N/A Ultrasound 05/01/2024 5:06 PM LINE LEADER Narrative 05/01/2024 5:08 PM LINE LEADER EXAM DESCRIPTION: ?? US ABDOMEN LIMITED REASON [...] Electronically signed by ??Boyd Caldwell M.D. KT: KT D: ??05/01/2024 5:08 PM T: ??05/01/2024 5:08 PM Report ID: [id number] Reading Location: ??[id number] Procedure Note Boyd Caldwell MD - 05/01/2024 [...] Electronically signed by Boyd Caldwell M.D. KT: KT Report ID: [id number] Reading Location: [place] [address] [facility] DO IMG US PROCEDURES Maeve l Result * aPTT (05/01/2024 2:50 PM LINE LEADER) aPTT 34 28 - 38 sec [facility] ([place]) Comment: Interpretive Data Heparin therapeutic range: 66.0 - 100.0 seconds. Range based on correlation with therapeutic heparin activity range of 0.3 - 0.7 Units/mL. Current interpretive data was last revised on 2023. Blood 05/01/2024 2:50 PM LINE LEADER 05/01/2024 3:05 PM LINE LEADER [facility] LAB BLOOD ORDERABLES F inal Result [facility] ([place]) 1 [facility] Department of Laboratories [place] [id number] * (ABNORMAL) Protime-INR (05/01/2024 2:50 PM LINE LEADER) PT 14.9(H) 9.7 - 13.0 sec [facility] ([place]) INR 1.37(H) 0.90 - 1.20 [facility] ([place]) Comment: Interpretive data Oral anticoagulant therapeutic ranges: Venous thromboembolism prophylaxis or treatment: 2.0-3.0 CARDIOLOGY Standard range: 2.0-3.0 High-intensity range: 2.5-3.5 Refer to indication-specific guidelines for appropriate target ranges for prosthetic heart valve replacement. Current interpretive data was last revised on 2019. Blood 05/01/2024 2:50 PM LINE LEADER 05/01/2024 3:05 PM LINE LEADER [facility] DO LAB BLOOD ORDERABLES F inal Result [facility] ([place]) 1 [facility] Department [place] [address] * (ABNORMAL) Urinalysis reflex to microscopic and culture Urine (05/01/2024 10:44 AM LINE LEADER) Color, ur Yellow Yellow Clarity, ur Clear Clear [facility] ([place]) Specific gravity, ur 1.017 1.003 - 1.030 [facility] ([place]) pH, urine 6.0 [facility] ([place]) Comment: Interpretive Data ? Urine pH is affected by diet, medications, systemic acid-base disturbances, and renal tubular function. ??pH may affect urinary stone formation. ??For example, urine pH below 6.0 may help reduce the tendency for calcium phosphate stones and pH greater than 6.0 may reduce the tendency for uric acid stone formation. Source: [facility] [place] Current Interpretive Data was last revised on [...] [facility] ([place]) Urine 05/01/2024 10:4 4 AM LINE LEADER 05/01/2024 10:50 AM LINE LEADER us Shara Yates DO LAB MICROBIOLOGY - GEN ERAL ORDERABLES Final Result [facility] ([place]) 1 [facility] Department [place] [address] * (ABNORMAL) Urinalysis, microscopic only (05/01/2024 10:44 AM LINE LEADER) WBC, ur 0-5 0 - 5 /HPF RBC, ur 0-2 0 - 2 /HPF [facility] ([place]) Epithelial cells, squamous, ur 11-20(A) 0 - 5 /HPF [facility] ([place]) Bacteria, ur Trace(A) [facility] ([place]) Mucous, ur Present(A) [facility] ([place]) Culture Reflex Comment Reflex conditions for urine culture (WBC >10) not met. [facility] ([place]) Urine 05/01/2024 10:4 4 AM LINE LEADER 05/01/2024 10:50 AM LINE LEADER us Shara Yates DO LAB URINE ORDERABLES F inal Result [facility] ([place]) 1 [facility] Department [place] [address] * Respiratory pathogen panel Nasopharyngeal (05/01/2024 10:04 AM LINE LEADER) Pathologist [facility] Influenza A RNA Not Detected Not Detected [facility] Comment:Testing performed by : [address] [address] Influenza B RNA Not Detected Not Detected [facility] ([place]) Comment:Testing performed by : [address] [address] RSV RNA Not Detected Not Detected [facility] ([place]) Comment:Testing performed by : [address] [address] COVID-19 RNA Not Detected Not Detected [facility] ([place]) Comment:Testing performed by : [address] [address] Coronavirus 229E RNA Not Detected Not Detected [facility] ([place]) Comment:Testing performed by : [address] [address] Coronavirus HKU1 RNA Not Detected Not Detected [facility] ([place]) Comment:Testing performed by : [address] [address] Coronavirus NL63 RNA Not Detected Not Detected [facility] ([place]) Comment:Testing performed by : [address] [address] Coronavirus OC43 RNA Not Detected Not Detected [facility] ([place]) Comment:Testing performed by : [facility], [address] [place] [address], [address] Adenovirus DNA Not Detected Not Detected [facility] ([place]) Comment:Testing performed by : [facility], [address] [place] [address], [address] Metapneumovirus RNA Not Detected Not Detected [facility] ([place]) Comment:Testing performed by : [facility], [address] [place] [address]., [address] Rhinovirus/Enterov irus RNA Not Detected Not Detected [facility] ([place]) Comment:Testing performed by : [facility], [address] [place] [address], [address] Parainfluenza 1 RNA Not Detected Not Detected [facility] ([place]) Comment:Testing performed by : [facility], [address] [place] [address], [address] Parainfluenza 2 RNA Not Detected Not Detected [facility] ([place]) Comment:Testing performed by : [facility], [address] [place] [address], [address] Parainfluenza 3 RNA Not Detected Not Detected [facility] ([place]) Comment:Testing performed by : [facility], [address] [place] [address], [address] Parainfluenza 4 RNA Not Detected Not Detected [facility] ([place]) Comment:Testing performed by : [facility], [address] [place] [address], [address] B. pertussis DNA Not Detected Not Detected [facility] ([place]) Comment:Testing performed by : [facility], [address] [place] [address], [address] B. parapertussis DNA Not Detected Not Detected [facility] ([place]) Comment:Testing performed by : [facility], [address] [place] [address], [address] C. pneumoniae DNA Not Detected Not Detected [facility] ([place]) Comment:Testing performed by : [facility], [address] [place] [address], [address] M. pneumoniae DNA Not Detected Not Detected [facility] ([place]) Comment: Interpretive Data The [employer] FilmArray Respiratory Panel (RP2.1) assay is a [...] assay has FDA clearance for testing of OPTOMETRIC COORDINATOR swabs. ??The performance characteristics of this assay have been determined by [facility]. Current interpretive data was last revised on 2020. Testing performed by: [facility], [address] [place] [address], [place]., [address] Nasopharyngeal 05/01/2024 10 :04 AM LINE LEADER 05/01/2024 11:23 AM LINE LEADER Narrative [facility] ([place]) - 05/01/2024 12:24 PM LINE LEADER Is the Patient experiencing symptoms consistent with COVID?->Yes Surveillance testing for transplant patient?->No Shara Yates DO LAB MICROBIOLOGY - GEN ERAL ORDERABLES Final Result [facility] ([place]) 1 [facility] Department [place] [address] CH * XR CHEST 1 VIEW PORTABLE (05/01/2024 9:53 AM LINE LEADER) Anatomical Region Laterality Modality Body, Chest N/A Computed Radiogr aphy 05/01/2024 12:2 9 PM LINE LEADER Narrative 05/01/2024 12:30 PM LINE LEADER EXAM DESCRIPTION: ?? XR CHEST 1 VIEW [...] Electronically signed by ??Dong Thorne M.D. RB: ADALID D: ??05/01/2024 12:30 PM T: ??05/01/2024 12:30 PM Report ID: [id number] Reading Location: ??[id number] Procedure Note Dong Thorne MD - 05/01/2024 [...] Electronically signed by Dong Thorne M.D. RB: ADALID Report ID: [id number] Reading Location: [id number] Sahra Zach Yates DO IMG XR PROCEDURES Maeve l Result * Lactate (05/01/2024 8:52 AM LINE LEADER) Pathologist [facility] Lactate 1.3 0.7 - 2.0 mmol/L Blood 05/01/2024 8:52 AM LINE LEADER 05/01/2024 9:01 AM LINE LEADER Shara Serrano Suzy DO LAB BLOOD ORDERABLES F inal Result Performing Organization Address City/State/[facility] Co de Phone Number [facility] [place]) 5 [facility] Department [place] [address] * eGFR (05/01/2024 8:52 AM LINE LEADER) eGFR >90 >=60 mL/min/1. 73 m2 Comment: [...] last reviewed 2021. Blood 05/01/2024 8:52 AM LINE LEADER 05/01/2024 9:40 AM LINE LEADER Shara Serrano Suzy DO LAB BLOOD ORDERABLES F inal Result [facility] ([place]) 1 [facility] Department [place] [address] * (ABNORMAL) CBC without differential (05/01/2024 8:52 AM LINE LEADER) WBC 6.4 3.8 - 9.9 K/cumm Hgb [...] [facility] ([place]) Blood 05/01/2024 8:52 AM LINE LEADER 05/01/2024 9:40 AM LINE LEADER us Shara Yates DO LAB BLOOD ORDERABLES F inal Result [facility] ([place]) 1 [facility] Department [place] [address] * (ABNORMAL) Comprehensive metabolic panel (05/01/2024 8:52 AM LINE LEADER) Sodium 132(L) 135 - 145 mmol/L Potassium, [...] Alk phos 88 40 - 130 Units/L [facility] ([place]) ALT 23 7 - 45 Units/L [facility] ([place]) AST 40 10 - 45 Units/L [facility] ([place]) Blood 05/01/2024 8:52 AM LINE LEADER 05/01/2024 9:40 AM LINE LEADER Shara Serrano [facility] DO LAB BLOOD ORDERABLES F inal Result [facility]IE [facility] ([place]) 1 [facility] Department [place] [address] * (ABNORMAL) Blood culture Blood (04/30/2024 8:47 PM LINE LEADER) Direct Specimen Exam Molecular Analysis: Methicillin-suscep tible Staphylococcus aureus (MSSA) detected by the maxx ePlex BCID-GP panel. This test does not exclude the possibility of a mixed bacterial infection. Notification of: Methicillin-suscep tible Staphylococcus aureus (MSSA) called to and read back by: Latrice Wellington MLS ([phone]) on 05/02/2024 01:41:52 by: Fritz Kebede MLS Comment:Testing performed by : [facility], [address] [place] [address]., [id number] Direct Specimen Exam Stain: Gram Positive Cocci in clusters Time to culture positivity (anaerobic media): 22.7 hours Notification of: Gram Positive Cocci in clusters called to and read back by: Latrice Wellington MLS ([phone]) on 05/01/2024 23:41:23 by: Fritz Kebede MLS Test result called to and read back by fabio stephenson on 05/02/2024 00:23:23 by latrice RENAE ([place]) Comment:Testing performed by : [facility], [address] [place] [address]., [id number] Report Final Report: Staphylococcus aureus Methicillin susceptible (MSSA) by penicillin binding protein 2a (PBP2a) testing. (.) [facility] ([place]) Comment:Testing performed by : [facility], 1 [facility], [place]., [address] Organism STAPHYLOCOCCUS AUREUS [facility] ([place]) Blood 04/30/2024 8:47 PM LINE LEADER 05/01/2024 Kris HOLLOWAY [facility] ([place]) - 05/06/2024 1:15 PM LINE LEADER From a different site than #1. Collection->Peripheral [...] performance characteristics have been verified by the [facility] Microbiology Laboratory. For questions about this culture, contact the Microbiology Laboratory at [phone]. Interpretive data was last revised on 24. Organism Antibiotic Method Susceptibility Staphylococcus aureus Doxycycline (ILIA) INTERPRETATIO N Susceptible Staphylococcus aureus Linezolid (ILIA) INTERPRETATIO N Susceptible Staphylococcus aureus Trimethoprim with Sulfamethoxazole (ILIA) INTERPRETATION Susceptible Staphylococcus aureus Clindamycin (ILIA) INTERPRETATI ON Susceptible Staphylococcus aureus Erythromycin (ILIA) INTERPRETATIO N Susceptible Staphylococcus aureus Vancomycin (ILIA) INTERPRETATIO N Susceptible Staphylococcus aureus Oxacillin (ILIA) INTERPRETATIO N Susceptible Staphylococcus aureus Cefazolin (ILIA) INTERPRETATIO N Susceptible Staphylococcus aureus Ceftriaxone (ILIA) INTERPRETATIO N Susceptible us Guille Wall MD LAB MICROBIOLOGY - GENERAL [facility] Final Result Performing Organization Address City/[facility]/ZIP Co de Phone Number AMIE RE[facility]E ([place]) 1 [facility] Department [place] [address] * Blood culture Blood (04/30/2024 8:47 PM LINE LEADER) Report Final Report: No growth Comment:Testing performed by : [facility], [address] [place]., [address] Blood 04/30/2024 8:47 PM LINE LEADER 05/01/2024 Narrative AMIE [facility] ([place]) - 05/05/2024 7:00 AM LINE LEADER Collection->Peripheral 1. ?Blood cultures are incubated for [...] performance characteristics have been verified by the [facility] Microbiology Laboratory. For questions about this culture, contact the Microbiology Laboratory at [phone]. Interpretive data was last revised on 24. Guille Wall MD LAB MICROBIOLOGY - GENERAL LINDEN LARSEN Final Result Performing Organization Address City/[facility]/ZIP Co de Phone Number [facility]IE [facility] ([place]) 1 [facility] Department [place] [address] * MRI Lumbar Spine WO Contrast (04/30/2024 2:26 PM LINE LEADER) Anatomical Region Laterality Modality Spine N/A Magnetic Resonan ce 04/30/2024 4:06 PM LINE LEADER Narrative 04/30/2024 4:12 PM LINE LEADER EXAM DESCRIPTION: ?? MRI LUMBAR SPINE WO [...] PM T: ??04/30/2024 4:12 PM Report ID: [id number] Reading Location: ??[id number] Procedure Note Bo Travis MD - 04/30/2024 [...] Relevant portions of CT abdomen pelvis with qkliyjto56/19/2025. FINDINGS: SEGMENTATION: No lumbosacral transitional anatomy. The [...] Bo Travis M.D. DORIS: DORIS Report ID: [id number] Reading Location: [place] [address] us Zee Khan MD IMG MRI PROCEDURES Final Result * CT Abdomen Pelvis W Contrast (04/29/2024 9:22 AM LINE LEADER) Anatomical Region Laterality Modality Body N/A Computed Tomogra phy 04/29/2024 12:5 1 PM LINE LEADER Narrative 04/29/2024 12:58 PM LINE LEADER EXAM DESCRIPTION: ?? CT ABDOMEN PELVIS W [...] PM T: ??04/29/2024 12:58 PM Report ID: [id number] Reading Location: ??[id number] Procedure Note Dave Chaudhry MD - 04/29/2024 EXAM DESCRIPTION: CT [...] Alphonso Chaudhry M.D. DORIS: DORIS Report ID: [id number] Reading Location: [id number] us Zee Khan MD IMG CT PROCEDURES Final Result * eGFR (04/29/2024 4:53 AM LINE LEADER) eGFR >90 >=60 mL/min/1. 73 m2 Comment: [...] last reviewed 2021. Blood 04/29/2024 4:53 AM LINE LEADER 04/29/2024 5:18 AM LINE LEADER us Zee Khan MD LAB BLOOD ORDERABLES Fin al Result [facility] ([place]) 1 [facility] Department [place] [address] * Differential, auto (04/29/2024 4:53 AM LINE LEADER) Neutrophil abs 2.2 1.5 - 6.5 K/cumm Imm gran abs 0.0 0.0 - 0.1 K/cumm [facility] ([place]) Lymphocyte abs 1.4 0.8 - 3.3 K/cumm [facility] ([place]) Monocyte abs 0.6 0.2 - 0.8 K/cumm [facility] ([place]) Eosinophil abs 0.2 0.0 - 0.5 K/cumm [facility] ([place]) Basophil abs 0.0 0.0 - 0.1 K/cumm [facility] ([place]) Neutrophil pct 49.5 % [facility] ([place]) Comment: Interpretive Data Percent cell count reference ranges are not reported, since discordance with absolute values may lead to misinterpretation of CBC data. Current Interpretive Data was last revised on 2017. Imm gran pct 0.2 % [facility] ([place]) Comment: Interpretive Data Percent cell [...] revised on 2017. Monocyte pct 13.2 % AMIE [facility] ([place]) Comment: Interpretive Data Percent cell count reference ranges are not reported, since discordance with absolute values may lead to misinterpretation of CBC data. Current Interpretive Data was last revised on 2017. Eosinophil pct 3.9 % [facility] ([place]) Comment: Interpretive Data Percent cell count reference ranges are not reported, since discordance with absolute values may lead to misinterpretation of CBC data. Current Interpretive Data was last revised on 2017. Basophil pct 0.5 % [facility] ([place]) Comment: Interpretive Data Percent cell count reference ranges are not reported, since discordance with absolute values may lead to misinterpretation of CBC data. Current Interpretive Data was last revised on 2017. Blood 04/29/2024 4:53 AM LINE LEADER 04/29/2024 5:17 AM LINE LEADER us Zee Khan MD LAB BLOOD ORDERABLES Fin al Result [facility]IE [facility] ([place]) 1 [facility] Department [place] [address] * (ABNORMAL) CBC with auto differential (04/29/2024 4:53 AM LINE LEADER) WBC 4.4 3.8 - 9.9 K/cumm Hgb [...] ([place]) MCHC 33.4 32.3 - 35.7 g/dL [facility] ([place]) RDW CV 13.4 11.1 - 14.9 % [facility] ([place]) RDW SD 47.5 35.7 - 48.1 fL [facility] ([place]) NRBC abs 0.00 0.00 - 0.01 K/cumm [facility] ([place]) Blood 04/29/2024 4:53 AM LINE LEADER 04/29/2024 5:17 AM LINE LEADER Zee Khan MD LAB BLOOD ORDERABLES Fin al Result AMIE RE[facility] ([place]) 1 [facility] [employer] [place] [address] * (ABNORMAL) Phosphorus (04/29/2024 4:53 AM LINE LEADER) Phosphorus, pl 4.6(H) 2.3 - 4.5 mg/dL Blood 04/29/2024 4:53 AM LINE LEADER 04/29/2024 5:18 AM LINE LEADER Zee Khan MD LAB BLOOD ORDERABLES Fin al Result AMIE [facility] ([place]) 1 [facility] [employer] [place] [address] * Magnesium (04/29/2024 4:53 AM LINE LEADER) Magnesium 1.6 1.4 - 2.5 mg/dL Blood 04/29/2024 4:53 AM LINE LEADER 04/29/2024 5:18 AM LINE LEADER Zee Khan MD LAB BLOOD ORDERABLES Fin al Result Performing Organization Address [facility] Co de Phone Number [facility] ([place]) [address] [place] [address] [place] [address] * Hepatic function panel (04/29/2024 4:53 AM LINE LEADER) [facility] Bilirubin, total 0.3 0.1 - 1.2 mg/dL Bilirubin, direct 0.1 0.1 - 0.3 mg/dL [facility] ([place]) Protein, pl 6.9 6.5 - 8.5 g/dL [facility] ([place]) Albumin 3.6 3.5 - 5.0 g/dL [facility] ([place]) Alk phos 89 40 - 130 Units/L [facility] ([place]) ALT 16 7 - 45 Units/L [facility] ([place] AST 27 10 - 45 Units/L [facility] ([place]) Blood 04/29/2024 4:53 AM LINE LEADER 04/29/2024 5:18 AM LINE LEADER Zee Khan MD LAB BLOOD ORDERABLES Fin al Result Performing Organization Address [facility] Co de Phone Number [facility] ([place]) [address] [place] [address] [place] [address] * Basic metabolic panel (04/29/2024 4:53 AM LINE LEADER) Pathologist [facility] Sodium 139 135 - 145 mmol/L Potassium, pl 3.8 3.3 - 4.9 mmol/L [facility] ([place]) Chloride 104 97 - 110 mmol/L [facility] ([place]) CO2 25 22 - 32 mmol/L [facility] ([place]) Anion gap 10 2 - 15 mmol/L [facility] ([place]) BUN 23 6 - 25 mg/dL [facility] ([place]) Creatinine 0.61 0.60 - 1.10 mg/dL [facility] ([place]) Glucose 85 70 - 199 mg/dL [facility] ([place]) Comment: Interpretive Data Fasting glucose >/= [...] 2022. Calcium 9.1 8.5 - 10.3 mg/dL [facility] ([place]) Blood 04/29/2024 4:53 AM LINE LEADER 04/29/2024 5:18 AM LINE LEADER Zee Khan MD LAB BLOOD ORDERABLES Fin al Result Performing Organization Address [facility] Co de Phone Number [facility] ([place]) 1 [facility] [place] [address] * Lipase (04/28/2024 1:16 PM LINE LEADER) Lipase 90 10 - 99 Units/L Blood 04/28/2024 1:16 PM LINE LEADER 04/28/2024 1:47 PM LINE LEADER Zee Khan MD LAB BLOOD ORDERABLES Fin al Result Performing Organization Address [facility] Co de Phone Number [facility] ([place] 1 [facility] [place] [address] * Hepatic function panel (04/28/2024 1:16 PM LINE LEADER) Bilirubin, total 0.3 0.1 - 1.2 mg/dL Bilirubin, direct <0.1 0.1 - 0.3 mg/dL [facility] ([place]) Comment: Hemolysis present. ??Results may be affected. Moderately Hemolyzed Specimen Protein, pl 7.0 6.5 - 8.5 g/dL [facility] ([place]) Albumin 3.6 3.5 - 5.0 g/dL [facility] ([place]) Alk phos 77 40 - 130 Units/L [facility] ([place]) ALT 18 7 - 45 Units/L [facility] ([place]) Comment: Hemolysis present. ??Results may be affected. Moderately Hemolyzed Specimen AST 35 10 - 45 Units/L [facility] ([place]) Comment: Hemolysis present. ??Results may be affected. Moderately Hemolyzed Specimen Blood 04/28/2024 1:16 PM LINE LEADER 04/28/2024 2:18 PM LINE LEADER us Zee Khan MD LAB BLOOD ORDERABLES Fin al Result [facility] ([place] 1 [facility] Department [place] [address] * eGFR (04/26/2024 8:41 AM LINE LEADER) eGFR >90 >=60 mL/min/1. 73 m2 Comment: [...] last reviewed 2021. Blood 04/26/2024 8:41 AM LINE LEADER 04/26/2024 8:57 AM LINE LEADER us Maddie White MD LAB BLOOD ORDERABLES Maeve lopez Result [facility] ([place]) 1 [facility] Department [place] [address] * (ABNORMAL) CBC without differential (04/26/2024 8:41 AM LINE LEADER) WBC 6.4 3.8 - 9.9 K/cumm Hgb [...] [facility] ([place]) Blood 04/26/2024 8:41 AM LINE LEADER 04/26/2024 8:57 AM LINE LEADER us Maddie White MD LAB BLOOD ORDERABLES Maeve lopez Result [facility] ([place] 1 [facility] Department [place] [address] * Comprehensive metabolic panel (04/26/2024 8:41 AM LINE LEADER) Sodium 138 135 - 145 mmol/L Potassium, [...] [facility] ([place]) Blood 04/26/2024 8:41 AM LINE LEADER 04/26/2024 8:57 AM LINE LEADER us Maddie White MD LAB BLOOD ORDERABLES Maeve l Result [facility] ([place]) 1 [facility] [place] [address] * eGFR (04/25/2024 8:53 AM LINE LEADER) eGFR >90 >=60 mL/min/1. 73 m2 Comment: [...] last reviewed 2021. Blood 04/25/2024 8:53 AM LINE LEADER 04/25/2024 8:55 AM LINE LEADER us Chang Mckeon MD LAB BLOOD ORDERABLE S Final Result [facility] ([place]) 1 [facility] [place] [address] * (ABNORMAL) Differential, auto (04/25/2024 8:53 AM LINE LEADER) Neutrophil abs 6.3 1.5 - 6.5 K/cumm Imm gran abs 0.0 0.0 - 0.1 K/cumm [facility] ([place]) Lymphocyte abs 0.6(L) 0.8 - 3.3 K/cumm [facility] ([place]) Monocyte abs 0.5 0.2 - 0.8 K/cumm [facility] ([place]) Eosinophil abs 0.0 0.0 - 0.5 K/cumm [...] revised on 2017. Blood 04/25/2024 8:53 AM LINE LEADER 04/25/2024 8:55 AM LINE LEADER us Chang Mckeon MD LAB BLOOD ORDERABLE S Final Result [facility] ([place]) 1 [facility] [employer] [place] [address] * (ABNORMAL) CBC with auto differential (04/25/2024 8:53 AM LINE LEADER) WBC 7.4 3.8 - 9.9 K/cumm Hgb 14.8 11.9 - 15.5 g/dL [facility] ([place]) Hct 42.1 35.6 - 45.5 % [facility] ([place]) Plt 123(L) 150 - 400 K/cumm [facility] ([place]) MPV 10.9 9.1 - 12.3 fL [facility] ([place]) RBC 4.53 3.90 - 5.20 M/cumm [facility] ([place]) MCV 92.9 81.3 - 96.4 fL [facility] ([place]) MCH 32.7 27.1 - 33.3 pg [facility] ([place]) MCHC 35.2 32.3 - 35.7 g/dL [facility] ([place]) RDW CV 13.1 11.1 - 14.9 % [facility] ([place]) RDW SD 43.8 35.7 - 48.1 fL [facility] ([place]) NRBC abs 0.00 0.00 - 0.01 K/cumm [facility] ([place]) Blood 04/25/2024 8:53 AM LINE LEADER 04/25/2024 8:55 AM LINE LEADER us Chang Mckeon MD LAB BLOOD ORDERABLE S Final Result [facility] ([place]) 1 [facility] [email or web address] [address] * aPTT (04/25/2024 8:53 AM LINE LEADER) aPTT 29 28 - 38 sec [facility] ([place]) Comment: Interpretive Data Heparin therapeutic range: 66.0 - 100.0 seconds. Range based on correlation with therapeutic heparin activity range of 0.3 - 0.7 Units/mL. Current interpretive data was last revised on 2023. Blood 04/25/2024 8:53 AM LINE LEADER 04/25/2024 5:58 PM LINE LEADER Maddie White MD LAB BLOOD ORDERABLES Maeve l Result [facility] ([place]) 1 [facility] [place] [address] * Protime-INR (04/25/2024 8:53 AM LINE LEADER) PT 11.5 9.7 - 13.0 sec [facility] ([place]) INR 1.06 0.90 - 1.20 [facility] ([place]) Comment: Interpretive data Oral anticoagulant therapeutic ranges: Venous thromboembolism prophylaxis or treatment: 2.0-3.0 CARDIOLOGY Standard range: 2.0-3.0 High-intensity range: 2.5-3.5 Refer to indication-specific guidelines for appropriate target ranges for prosthetic heart valve replacement. Current interpretive data was last revised on 2019. Blood 04/25/2024 8:53 AM LINE LEADER 04/25/2024 5:58 PM LINE LEADER Maddie White MD LAB BLOOD ORDERABLES Maeve l Result [facility] ([place] 1 [facility] [place] [address] * Magnesium (04/25/2024 8:53 AM LINE LEADER) Magnesium 1.4 1.4 - 2.5 mg/dL Blood 04/25/2024 8:53 AM LINE LEADER 04/25/2024 9:56 AM LINE LEADER Chang Mckeon MD LAB BLOOD ORDERABLE S Final Result Performing Organization Address City/[facility]/ZIP Co de Phone Number [facility] ([place]) 1 [facility] [place] [address] * (ABNORMAL) Ethanol (04/25/2024 8:53 AM LINE LEADER) Ethanol 59(H) <=10 mg/dL Comment: Interpretive Data Legal limit of intoxication > or = 80 mg/dL Levels > or = 400 mg/dL are potentially TOXIC. Current interpretive data was last revised on 2018. Blood 04/25/2024 8:53 AM LINE LEADER 04/25/2024 8:55 AM LINE LEADER Chang Mckeon MD LAB BLOOD ORDERABLE S Final Result Performing Organization Address [facility] Co de Phone Number [facility] ([place]) 1 [facility] [place] [address] * (ABNORMAL) Comprehensive metabolic panel (04/25/2024 8:53 AM LINE LEADER) Pathologist [facility] Sodium 134(L) 135 - 145 mmol/L Potassium, pl 3.5 3.3 - 4.9 mmol/L [facility] ([place]) Chloride 99 97 - 110 mmol/L [facility] ([place]) CO2 21(L) 22 - 32 mmol/L [facility] ([place]) Anion gap 14 2 - 15 mmol/L [facility] ([place]) BUN 13 6 - 25 mg/dL [facility] ([place]) Creatinine 0.48(L) 0.60 - 1.10 mg/dL [facility] ([place]) Glucose 141 70 - 199 mg/dL [facility] ([place]) Comment: Interpretive Data Fasting glucose [...] classification and Diagnosis of Diabetes Diabetes Care 202; 46: S19-S40. Current interpretive data was last [...] Hemolyzed S pecimen Blood 04/25/2024 8:53 AM LINE LEADER 04/25/2024 8:55 AM LINE LEADER us Chang Mckeon MD LAB BLOOD ORDERABLE S Final Result [facility] ([place]) 1 [facility] Department of Laboratories [place], [place] [id number] * eGFR (04/25/2024 8:33 AM LINE LEADER) eGFR >90 >=60 mL/min/1. 73 m2 Comment: [...] last reviewed 2021. Blood 04/25/2024 8:33 AM LINE LEADER 04/25/2024 8:41 AM LINE LEADER us Jesenia Mckeon MD LAB BLOOD ORDERABLES Final Re sult [facility] ([place]) 1 [facility] Department [place] [address] * (ABNORMAL) Drugs of Abuse Screen, Urine without Confirmation (04/25/2024 8:33 AM LINE LEADER) Amphetamine, ur Screen Positive, presumptive (A) CutOff [...] Barbiturates, ur Not Detected CutOff 200ng/mL [facility] ([place]) Comment: Interpretive Data - Barbiturates: ??Samples [...] Screen Positive, presumptive (A) CutOff 50 ng/mL [facility] ([place]) Comment: Interpretive Data - Cannabinoids: [...] Phencyclidine, ur Not Detected CutOff 25 ng/mL [facility] ([place]) Comment: Interpretive Data - Phencyclidine: ??Samples containing greater than 25 ng/mL phencyclidine or other cross-reacting compounds are reported as positive. ??False positive and false negative results are possible. Confirmatory testing required for definitive results. Current Interpretive Data was last reviewed 2022. Urine Creatinine 208 mg/dL [facility] ([place]) Comment: Interpretive Data Urine Creatinine: < 10 mg/dL is extremely dilute = or > 10 but < 20 mg/dL is dilute = or > 20 mg/dL is normal Current Interpretive Data was last revised on 2017. Urine 04/25/2024 8:33 AM LINE LEADER 04/25/2024 8:43 AM LINE LEADER Narrative [facility] ([place]) - 04/25/2024 9:03 AM LINE LEADER Drug of Abuse screening is performed by immunoassay for medical purposes only. ??This is not to be used for Pain Management purposes. Jesenia Mckeon MD LAB URINE ORDERABLES Final Re sult [facility] ([place]) 1 [facility] Department [place] [address] * (ABNORMAL) CBC without differential (04/25/2024 8:33 AM LINE LEADER) WBC 7.3 3.8 - 9.9 K/cumm Hgb 14.7 11.9 - 15.5 g/dL [facility] ([place]) Hct 41.6 35.6 - 45.5 % [facility] ([place]) Plt 121(L) 150 - 400 K/cumm [facility] ([place]) MPV 10.1 9.1 - 12.3 fL [facility] ([place]) RBC 4.53 3.90 - 5.20 M/cumm [facility] ([place]) MCV 91.8 81.3 - 96.4 fL [facility] ([place]) MCH 32.5 27.1 - 33.3 pg [facility] ([place]) MCHC 35.3 32.3 - 35.7 g/dL [facility] ([place]) RDW CV 12.9 11.1 - 14.9 % [facility] ([place]) RDW SD 42.5 35.7 - 48.1 fL [facility] ([place]) NRBC abs 0.00 0.00 - 0.01 K/cumm [facility] ([place]) Blood 04/25/2024 8:33 AM LINE LEADER 04/25/2024 8:41 AM LINE LEADER us Jesenia Mckeon MD LAB BLOOD ORDERABLES Final Re sult [facility] ([place]) 1 [facility] Department [place] [address] * (ABNORMAL) Comprehensive metabolic panel (04/25/2024 8:33 AM LINE LEADER) Sodium 135 135 - 145 mmol/L Potassium, pl 3.4 3.3 - 4.9 mmol/L [facility] ([place]) Chloride 101 97 - 110 mmol/L [facility] ([place]) CO2 19(L) 22 - 32 mmol/L [facility] ([place]) Anion gap 15 2 - 15 mmol/L [facility] ([place]) BUN 13 6 - 25 mg/dL [facility] ([place]) Creatinine 0.47(L) 0.60 - 1.10 mg/dL [facility] ([place]) Glucose 156 70 - 199 mg/dL [facility] ([place]) Comment: Interpretive Data Fasting glucose [...] Hemolyzed S pecimen Blood 04/25/2024 8:33 AM LINE LEADER 04/25/2024 8:41 AM LINE LEADER us Jesenia Mckeon MD LAB BLOOD ORDERABLES Final Re sult [facility] ([place]) 1 [facility] Department [place] [address] from Last 3 Months Insurance [employer] BETTER [facility] [place] Advance Directives For more information, please contact: [phone] * Full Code (Latest Code Status on File) Date Activated Date Inactivated Comments 04/25/2024 5:41 PM 05/07/2024 7:44 PM Care Teams Still Photographer Relationship Specialty Start Date End Date Bladimir Crowder MD [address] [place] [id number] PCP - General Family Medicine 04/25/24
--- OUTSIDE RECORDS SUMMARY | 2024-05-12 05:11 | XMS_ITS | Encounter Summary ---
Author Organization [facility] Healthcare Address [address] [place] [address] Care Team Providers Care Heel Cutter Name Role Phone Bladimir Crowder MD Primary Care Provider [phone] Encounter Details Date Type Department Care Team (Late st Contact Info) Description 04/25/2024 10:30 AM NURSING CONSULTANT Hospital Encounter [facility] [address] [place] [address] Jesenia Mckeon MD 1 [facility] [address] [address] Social History Tobacco Use Types Packs/Day Years Used Date Smoking Tobacco: Never Smokeless Tobacco: Never AUDIT-C Answer Date Recorded Q1: How often [...] on file documented as of this encounter Plan of Treatment Not on file documented as of this encounter Visit Diagnoses Not on filedocumented in this encounter Additional Health Concerns Infection Onset Date Last Indicated Resolved Time COVID: Suspected 05/01/2024 05/01/2024 05/01/2024 12:26 PM NURSING CONSULTANT documented as of this encounter Care Teams Heel Cutter Relationship Specialty Start Date End Date Bladimir Crowder MD [address] [place] [id number] PCP - General Family Medicine 04/25/24 documented as of this encounter
--- OUTSIDE RECORDS SUMMARY | 2024-05-12 05:45 | XMS_ITS | Encounter Summary ---
Author Organization [facility] Address [facility] [facility] [place] [address] [place] [address] Care Team Providers Care Software Installer Name Role Phone Ruma Meade MD Primary Care Provider [phone] Reason for Referral * Sleep Lab (Routine) - New Request Specialty Diagnoses / Procedures Referred By Aaron dejesus Referred To Contact Diagnoses Hypersomnia Procedures Diagnostic PSG (56128, [address]996) [facility] [address] [place] [address] Phone: tel: Referral ID Status Reason Start Date Expiration Date V isits Requested Visits Authorized [id number] New Request 05/09/2024 06/09/2025 1 1 NT LEADER Encounter Details Date Type Department Care Team (Late st Contact Info) Description 05/09/[address] [facility] [address] [place] [address] Verna Raymundo MD [address] [place] [phone] Social History Tobacco Use Types [...] place to sleep or slept in a snf (including now)? Yes 01/11/2023 Comments No Sex [...] st Contact Info) Description 05/26/2024 10:00 PM [facility] Hospital Encounter [facility] [address] [address] Verna Raymundo MD [address] [place] [id number] Scheduled Orders Name Type Priority Associated Diagnoses Orde r Schedule Diagnostic PSG (37251, 23624) Sleep Center Routine Hypersomnia Expected: 05/09/2024, Expires: 05/09/2025 documented as of this encounter Visit Diagnoses Diagnosis Hypersomnia- Primary Hypersomnia, unspecified documented in this encounter Care Teams Software Installer Relationship Specialty Start Date End Date Ruma Meade MD [address] [place] [phone] PCP - General FAMILY PRACTICE 03/18/24 documented as of this encounter
--- OUTSIDE RECORDS SUMMARY | 2024-05-12 05:46 | XMS_ITS | Referral Summary ---
Author Organization [facility] Address [address] [place] [address] Care Team Providers Care Cleat Layer Name Role Phone Baldimir Crowder MD Primary Care Provider [phone] Encounters Date Type Department Care Team Description 05/08/2024 Telephone [facility] [employer] [facility] [id number] [place] [phone] Shara Yates, 05/07/2024 Documentation [facility] [address] [place], [place] [phone] Latrice Dumont 04/25/2024 10:50 AM SUPERVISOR FILES - 05/07/2024 3:39 PM SUPERVISOR FILES Hospital Encounter [facility] [address] [place] [address] Maddie White MD Sargsyan, Narine, MD Sinha, Chandni, MD Abegunde, Veronica O., MD Nations, Matthew Austin, DO Alcohol withdrawal syndrome without complication (HCC) (Primary Dx); Unspecified mood disorder (HCC) Discharge Disposition: Discharge to home or self care 05/05/2024 Documentation [facility] [address] [place], [place] [phone] Hilario Jana EValentín 05/03/2024 Documentation [facility] [address] [place], [place] [phone] Hilario Jana EValentín 05/02/2024 Documentation [facility] [address] [place], [place] [phone] Latrice Dumont 05/01/2024 Documentation [facility] [address] [place], [place] [phone] Hilario, Jana Emmanuel 04/30/2024 Documentation [facility] [address] [place], [place] [phone] Latrice Dumont 04/29/2024 Documentation [facility] [address] [place], [place] [phone] Latrice Dumont 04/27/2024 [facility] Enrollment [facility] [address] [place], [place] [phone] Hilario, Jana E. 04/25/2024 Documentation [facility] [address] [place], [place] [phone] Hilario, Jana E. 04/25/2024 Documentation [facility] [address] [place] [address] Hilario, Jana E. 04/25/2024 8:30 AM SUPERVISOR FILES Lab [address] [phone] 04/25/2024 10:30 AM SUPERVISOR FILES Hospital Encounter [facility] [address] [place] [address] Jesenia Mckeon MD 04/23/2024 Documentation [facility] [address] [place] [address] Latrice Dumont from Last 3 Months Allergies [...] Comments Blood Pressure 118/80 05/07/2024 10:52 AM SUPERVISOR FILES Pulse 74 05/07/2024 10:52 AM SUPERVISOR FILES Temperature 36.6 ??C (97.9 ??F) 05/07/2024 10:[address] Respiratory Rate 20 05/07/2024 10:52 AM SUPERVISOR FILES Oxygen Saturation 91% 05/07/2024 10:52 AM SUPERVISOR FILES Inhaled Oxygen Concentration - - Weight 78.6 kg (173 lb 4.5 oz) 05/02/2024 1:12 AM SUPERVISOR FILES Height 165.1 cm (5' 5 ) 04/29/2024 3:24 PM SUPERVISOR FILES Body Mass Index 28.84 04/29/2024 3:24 PM SUPERVISOR FILES Plan of Treatment Not on file Procedures Procedure Name Priority Date/Time Associated Diagnosis Comments EGFR Routine 05/05/2024 12:12 PM SUPERVISOR FILES CBC WITHOUT DIFFERENTIAL Routine 05/05/2024 12:12 PM SUPERVISOR FILES COMPREHENSIVE METABOLIC PANEL Routine 05/05/2024 12:12 PM SUPERVISOR FILES TRANSTHORACIC ECHO (TTE) COMPLETE W DOPPLER/CF WO CONTRAST Routine 05/04/2024 7:30 AM SUPERVISOR FILES US UPPER EXTREMITY RIGHT LIMITED IP Routine 05/03/2024 2:05 PM SUPERVISOR FILES BLOOD CULTURE Routine 05/03/2024 1:35 PM SUPERVISOR FILES BLOOD CULTURE Routine 05/03/2024 11:25 AM SUPERVISOR FILES TROPONIN T HIGH-SENSITIVITY 6-HOUR Timed 05/02/2024 11:01 AM SUPERVISOR FILES TROPONIN T HIGH-SENSITIVITY 2-HOUR Timed 05/02/2024 6:37 AM SUPERVISOR FILES TROPONIN T HIGH-SENSITIVITY SERIES (BASELINE, 2HR, 4HR, 6HR) Routine 05/02/2024 4:17 AM SUPERVISOR FILES ECG 12-LEAD Routine 05/02/2024 2:17 AM SUPERVISOR FILES US ABDOMEN LIMITED IP Routine 05/01/2024 3: 50 PM SUPERVISOR FILES APTT STAT 05/01/2024 2:50 PM SUPERVISOR FILES PROTIME-INR STAT 05/01/2024 2:50 PM SUPERVISOR FILES URINALYSIS, MICROSCOPIC ONLY Routine 05/01/2024 10:44 AM SUPERVISOR FILES URINALYSIS AND REFLEX TO MICROSCOPIC AND CULTURE Routine 05/01/2024 10:44 AM SUPERVISOR FILES RESPIRATORY PATHOGEN PANEL Routine 05/01/2024 10:04 AM SUPERVISOR FILES XR CHEST 1 VIEW IP Routine 05/01/2024 9:53 AM SUPERVISOR FILES EGFR STAT 05/01/2024 8:52 AM SUPERVISOR FILES LACTATE STAT 05/01/2024 8:52 AM SUPERVISOR FILES COMPREHENSIVE METABOLIC PANEL STAT 05/01/2024 8:52 AM SUPERVISOR FILES CBC WITHOUT DIFFERENTIAL STAT 05/01/2024 8:52 AM SUPERVISOR FILES BLOOD CULTURE Routine 04/30/2024 8:47 PM SUPERVISOR FILES BLOOD CULTURE Routine 04/30/2024 8:47 PM SUPERVISOR FILES MRI LUMBAR SPINE WO CONTRAST IP Routine 04/30/2024 2:[address] ABDOMEN PELVIS W CONTRAST IP Routine 04/29/2024 9:22 AM SUPERVISOR FILES EGFR Routine 04/29/2024 4:53 AM SUPERVISOR FILES DIFFERENTIAL AUTO Routine 04/29/2024 4:5 3 AM SUPERVISOR FILES PHOSPHORUS Routine 04/29/2024 4:53 AM SUPERVISOR FILES MAGNESIUM Routine 04/29/2024 4:53 AM SUPERVISOR FILES HEPATIC FUNCTION PANEL Routine 04/29/2024 4:53 AM SUPERVISOR FILES CBC WITH AUTO DIFFERENTIAL Routine 04/29/2024 4:53 AM SUPERVISOR FILES BASIC METABOLIC PANEL Routine 04/29/2024 4:53 AM SUPERVISOR FILES HEPATIC FUNCTION PANEL Add-On 04/28/2024 1:16 PM SUPERVISOR FILES LIPASE STAT 04/28/2024 1:16 PM SUPERVISOR FILES EGFR Routine 04/26/2024 8:41 AM SUPERVISOR FILES COMPREHENSIVE METABOLIC PANEL Routine 04/26/2024 8:41 AM SUPERVISOR FILES CBC WITHOUT DIFFERENTIAL Routine 04/26/2024 8:41 AM SUPERVISOR FILES APTT STAT 04/25/2024 8:53 AM SUPERVISOR FILES PROTIME-INR STAT 04/25/2024 8:53 AM SUPERVISOR FILES MAGNESIUM Add-On 04/25/2024 8:53 AM SUPERVISOR FILES EGFR STAT 04/25/2024 8:53 AM SUPERVISOR FILES DIFFERENTIAL AUTO STAT 04/25/2024 8:5 3 AM SUPERVISOR FILES ETHANOL STAT 04/25/2024 8:53 AM SUPERVISOR FILES COMPREHENSIVE METABOLIC PANEL STAT 04/25/2024 8:53 AM SUPERVISOR FILES CBC WITH AUTO DIFFERENTIAL STAT 04/25/2024 8:53 AM SUPERVISOR FILES EGFR STAT 04/25/2024 8:33 AM SUPERVISOR FILES DRUGS OF ABUSE SCREEN, URINE WITHOUT CONFIRMATION Routine 04/25/2024 8:33 AM SUPERVISOR FILES CBC WITHOUT DIFFERENTIAL STAT 04/25/2024 8:33 AM SUPERVISOR FILES COMPREHENSIVE METABOLIC PANEL STAT 04/25/2024 8:33 AM SUPERVISOR FILES from Last 3 Months Results * eGFR (05/05/2024 12:12 PM SUPERVISOR FILES) [facility] eGFR >90 >=60 mL/min/1. 73 m2 Comment: [...] reviewed 2021. Blood 05/05/2024 12:1 2 PM SUPERVISOR FILES 05/05/2024 12:26 PM SUPERVISOR FILES Shara Serrano Suzy DO LAB BLOOD ORDERABLES F inal Result [facility] ([facility]) 1 [facility] [place] [address] * (ABNORMAL) CBC without differential (05/05/2024 12:12 PM SUPERVISOR FILES) WBC 4.3 3.8 - 9.9 K/cumm Hgb 12.4 11.9 - 15.5 g/dL [facility] ([place]) Hct 36.7 35.6 - 45.5 % [facility] ([place]) Plt 117(L) 150 - 400 K/cumm [facility] ([place]) MPV 10.2 9.1 - 12.3 fL [facility] ([place]) RBC 3.87(L) 3.90 - 5.20 M/cumm [facility] ([place]) MCV 94.8 81.3 - 96.4 fL [facility] MCH 32.0 27.1 - 33.3 pg [facility] MCHC 33.8 32.3 - 35.7 g/dL [facility] RDW CV 13.3 11.1 - 14.9 % [facility] ([facility]) RDW SD 46.5 35.7 - 48.1 fL [facility] ([facility]) NRBC abs 0.00 0.00 - 0.01 K/cumm [facility] ([facility]) Blood 05/05/2024 12:1 2 PM SUPERVISOR FILES 05/05/2024 12:26 PM SUPERVISOR FILES Shara Yates DO LAB BLOOD ORDERABLES F inal Result [facility] ([facility]) [facility] [place] [address] * (ABNORMAL) Comprehensive metabolic panel (05/05/2024 12:12 PM SUPERVISOR FILES) Sodium 138 135 - 145 mmol/L Potassium, pl 4.1 3.3 - 4.9 mmol/L [facility] ([facility]) Chloride 104 97 - 110 mmol/L [facility] ([facility]) CO2 24 22 - 32 mmol/L [facility] ([facility]) Anion gap 11 2 - 15 mmol/L [facility] ([facility]) BUN 12 6 - 25 mg/dL [facility] ([facility]) Creatinine 0.45(L) 0.60 - 1.10 mg/dL [facility] ([facility]) Glucose 102 70 - 199 mg/dL [facility] ([facility]) Comment: Interpretive Data Fasting glucose [...] [facility] ([facility]) Blood 05/05/2024 12:1 2 PM SUPERVISOR FILES 05/05/2024 12:26 PM SUPERVISOR FILES us Shara Yates DO LAB BLOOD ORDERABLES F inal Result [facility] ([place]) [facility] [place] [address] * TRANSTHORACIC ECHO (TTE) COMPLETE W DOPPLER/CF WO CONTRAST (05/04/2024 7:30 AM SUPERVISOR FILES) LV EF 60-65 % CONS SCIMAGE Anatomical Region Laterality Modality Ultrasound 05/04/2024 7:13 AM SUPERVISOR FILES Narrative 05/04/2024 4:47 PM SUPERVISOR FILES [address] [place] [address] Echocardiogram Report Patient Name: LATRICE VALENCIA : 1975 Study Date: 05/04/2024 7:13:46 AM Gender: F Tech: NL Location: [id number] Ref Provider: SHARA YATES ?Height(Cm): 165 BSA: [...] By: Kwaku Blanco MD 05/04/2024 4:46:44 PM SUPERVISOR FILES Procedure Note Kwaku Blanco MD - 05/04/2024 [place] [address] Echocardiogram Report Patient Name: LATRICE VALENCIA : 1975 Study Date: 05/04/2024 7:13:46 AM Gender: F Tech: Location: [id number] Ref Provider: SHARA YATES Height(Cm): 165 BSA: [...] By: Kwaku Blanco MD 05/04/2024 4:46:44 PM SUPERVISOR FILES us Shara Yates DO CV ECHO PROCEDURES Fin al Result * US Upper Extremity Right Limited (05/03/2024 2:05 PM SUPERVISOR FILES) Anatomical Region Laterality Modality Upper Extremities Right Ultrasound 05/03/2024 4:48 PM SUPERVISOR FILES Narrative 05/03/2024 4:51 PM SUPERVISOR FILES EXAM DESCRIPTION: ?? US UPPER EXTREMITY RIGHT LIMITED REASON FOR STUDY: ?? Patient with cellulitis at site of right forearm prior IV site. Firmness at this area, wanting to rule out an abscess. ?? TECHNIQUE: A Dynamic assessment was performed of the soft tissues in the right elbow region by the tinter photograph, with selected grayscale and color Doppler images [...] PM T: ??05/03/2024 4:51 PM Report ID: [id number] Reading Location: ??[id number] Procedure Note Boyd Cook MD - 05/03/2024 EXAM DESCRIPTION: US UPPER EXTREMITY RIGHT LIMITED REASON FOR STUDY: Patient with cellulitis at site of right forearm priorIV site. Firmness at this area, wanting to rule out an abscess. TECHNIQUE: A Dynamic assessment was performed of the soft tissues in theright elbow region by the tinter photograph, with selected grayscale and color Doppler images acquired and recorded in PACS. COMPARISON: None FINDINGS: Thrombus is seen within a superficial vein within the region of concern,with prominent peripheral vascularity. IMPRESSION: Superficial thrombophlebitis within the region of concern. THIS IS AN ELECTRONICALLY VERIFIED FINAL REPORT 05/03/2024 4:51 PM - Electronically signed by Boyd Cook M.D. KR: CHANG Report ID: [id number] Reading Location: [id number] Shara Serrano [facility] DO IMG US PROCEDURES Maeve l Result * Blood culture Blood (05/03/2024 1:35 PM SUPERVISOR FILES) Report Final Report: No growth Comment:Testing performed by : [facility], [address] [facility] [place] [address] Blood 05/03/2024 1:35 PM SUPERVISOR FILES 05/03/2024 4:30 PM SUPERVISOR FILES Narrative [facility] ([place]) - 05/08/2024 7:00 AM SUPERVISOR FILES From a different site than #1. Collection->Peripheral [...] performance characteristics have been verified by the [facility] Microbiology Laboratory. For questions about this culture, contact the Microbiology Laboratory at [phone]. Interpretive data was last revised on 24. Shara Serrano Suzy DO LAB MICROBIOLOGY - GEN ERAL ORDERABLES Final Result [facility] ([place]) [facility] Department [place] [address] * Blood culture Blood (05/03/2024 11:25 AM SUPERVISOR FILES) Report Final Report: No growth Comment:Testing performed by : [facility], [address] [facility] [place]., [address] Blood 05/03/2024 11:2 5 AM SUPERVISOR FILES 05/03/2024 1:53 PM SUPERVISOR FILES Narrative [facility] ([facility]) - 05/07/2024 4:00 PM SUPERVISOR FILES Collection->Peripheral 1. ?Blood cultures are incubated for [...] performance characteristics have been verified by the [facility]biology [facility]. For questions about this culture, contact the Microbiology Laboratory at [phone]. Interpretive data was last revised on 24. us Shara Yates DO LAB MICROBIOLOGY - GEN ERAL ORDERABLES Final Result Performing Organization Address [facility] Co de Phone Number [facility] ([place]) [address] [place] [address] * Troponin T high-sensitivity 6-hour (05/02/2024 11:01 AM SUPERVISOR FILES) Trop T hs <6 <=14 ng/L Comment: Interpretive Data For further hscTnT resources including the diagnostic algorithm and an aid in interpretation, copy and paste this link: https://nrl.[facility].org/show/hsTrop Current Interpretive Data last revised 2020. Trop T hs delta 0 ng/L [facility] ([facility]) Trop T hs interp Insignificant [facility] ([facility]) Blood 05/02/2024 11:0 1 AM SUPERVISOR FILES 05/02/2024 11:11 AM SUPERVISOR FILES us Guille Wall MD LAB BLOOD ORDERABLES Final Resu lt Performing Organization Address [facility] Co de Phone Number [facility] ([place]) [address] [place] [address] * Troponin T high-sensitivity 2-hour (05/02/2024 6:37 AM SUPERVISOR FILES) Trop T hs <6 <=14 ng/L Comment: Interpretive Data For further hscTnT resources including the diagnostic algorithm and an aid in interpretation, copy and paste this link: https://nrl.[facility].org/show/hsTrop Current Interpretive Data last revised 2020. Trop T hs delta 0 ng/L [facility] ([facility]) Trop T hs interp Insignificant [facility] ([facility]) Blood 05/02/2024 6:37 AM SUPERVISOR FILES 05/02/2024 7:06 AM SUPERVISOR FILES Guille Wall MD LAB BLOOD ORDERABLES Final Resu lt Performing Organization Address [facility] Co de Phone Number [facility] ([place]) [address] [facility] [place] [address] * Troponin T high-sensitivity series (baseline, 2hr, 4hr, 6hr) (05/02/2024 4:17 AM SUPERVISOR FILES) Trop T hs <6 <=14 ng/L Comment: Interpretive Data For further hscTnT resources including the diagnostic algorithm and an aid in interpretation, copy and paste this link: https://nrl.[facility]catalog.org/show/hsTrop Current Interpretive Data last revised 2020. Blood 05/02/2024 4:17 AM SUPERVISOR FILES 05/02/2024 4:40 AM SUPERVISOR FILES Guille Wall MD LAB BLOOD ORDERABLES Final Resu lt Performing Organization Address [facility] de Phone Number [facility] ([place]) [address] [facility] [place] [address] * ECG 12 lead (05/02/2024 2:17 AM SUPERVISOR FILES) 05/02/2024 2:17 AM SUPERVISOR FILES Narrative [facility] - 05/02/2024 7:39 AM SUPERVISOR FILES Vent Rate: 73 bpm RR Interval: [address] Interval: 180 msec QRS Duration: 84 msec QT Interval: 397 msec QTC Interval: 423 msec P-R-T [place]: 40 - -21 - 31 degrees IMPRESSION: SINUS RHYTHM WITH SINUS ARRHYTHMIA BORDERLINE LEFT AXIS DEVIATION [QRS AXIS < -20] BORDERLINE ECG Electronically Signed By: Kwaku Blanco MD Guille Wall MD ECG ORDERABLES Final Result Performing Organization Address [facility] Co de Phone Number [employer] [place] [facility] * US Abdomen Limited (05/01/2024 3:50 PM SUPERVISOR FILES) Anatomical Region Laterality Modality Abdomen N/A Ultrasound 05/01/2024 5:06 PM SUPERVISOR FILES Narrative 05/01/2024 5:08 PM SUPERVISOR FILES EXAM DESCRIPTION: ?? US ABDOMEN LIMITED REASON [...] PM T: ??05/01/2024 5:08 PM Report ID: [id number] Reading Location: ??[id number] Procedure Note Boyd Caldwell MD - 05/01/2024 [...] Boyd Caldwell M.D. KT: KARINA Report ID: [id number] Reading Location: [id number] Shara Yates DO IMG US PROCEDURES Maeve l Result * aPTT (05/01/2024 2:50 PM SUPERVISOR FILES) aPTT 34 28 - 38 sec [facility] ([place]) Comment: Interpretive Data Heparin therapeutic range: 66.0 - 100.0 seconds. Range based on correlation with therapeutic heparin activity range of 0.3 - 0.7 Units/mL. Current interpretive data was last revised on 2023. Blood 05/01/2024 2:50 PM SUPERVISOR FILES 05/01/2024 3:05 PM SUPERVISOR FILES [facility] LAB BLOOD ORDERABLES F inal Result [facility] ([facility]) 1 [facility] Department [place] [address] * (ABNORMAL) Protime-INR (05/01/2024 2:50 PM SUPERVISOR FILES) PT 14.9(H) 9.7 - 13.0 sec [facility] ([place]) INR 1.37(H) 0.90 - 1.20 [facility] ([place]) Comment: Interpretive data Oral anticoagulant therapeutic ranges: Venous thromboembolism prophylaxis or treatment: 2.0-3.0 CARDIOLOGY Standard range: 2.0-3.0 High-intensity range: 2.5-3.5 Refer to indication-specific guidelines for appropriate target ranges for prosthetic heart valve replacement. Current interpretive data was last revised on 2019. Blood 05/01/2024 2:50 PM SUPERVISOR FILES 05/01/2024 3:05 PM SUPERVISOR FILES [facility] LAB BLOOD ORDERABLES F inal Result [facility] [place] [address] * (ABNORMAL) Urinalysis reflex to microscopic and culture Urine (05/01/2024 10:44 AM SUPERVISOR FILES) Color, ur Yellow Yellow Clarity, ur Clear Clear [facility] ([place]) Specific gravity, ur 1.017 1.003 - 1.030 [...] tendency for uric acid stone formation. Source: [facility] Current Interpretive Data was last revised [...] [facility] ([facility]) Urine 05/01/2024 10:4 4 AM SUPERVISOR FILES 05/01/2024 10:50 AM SUPERVISOR FILES Shara Yates DO LAB MICROBIOLOGY - GEN ERAL ORDERABLES Final Result [facility] ([facility]) 1 [facility] [place] [address] * (ABNORMAL) Urinalysis, microscopic only (05/01/2024 10:44 AM SUPERVISOR FILES) WBC, ur 0-5 0 - 5 /HPF RBC, ur 0-2 0 - 2 /HPF [facility] ([facility]) Epithelial cells, squamous, ur 11-20(A) 0 - 5 /HPF [facility] ([facility]) Bacteria, ur Trace(A) [facility] ([facility]) Mucous, ur Present(A) [facility] ([facility]) Culture Reflex Comment Reflex conditions for urine culture (WBC >10) not met. [facility] ([facility]) Urine 05/01/2024 10:4 4 AM SUPERVISOR FILES 05/01/2024 10:50 AM SUPERVISOR FILES Shara Yatse DO LAB URINE ORDERABLES F inal Result [facility] ([facility]) 1 [facility] Department [place] [address] * Respiratory pathogen panel Nasopharyngeal (05/01/2024 10:04 AM SUPERVISOR FILES) Pathologist [facility] Influenza A RNA Not Detected Not Detected Comment:Testing performed by : [facility], [address] [place] [address], [address] Influenza B RNA Not Detected Not Detected [facility] ([facility]) Comment:Testing performed by : [facility], [address] [place] [address], [address] RSV RNA Not Detected Not Detected [facility] ([facility]) Comment:Testing performed by : [facility], [address] [place] [address], [id number] COVID-19 RNA Not Detected Not Detected [facility] ([facility]) Comment:Testing performed by : [facility], [address] [place] [address]., [address] Coronavirus 229E RNA Not Detected Not Detected [facility] ([facility]) Comment:Testing performed by : [address], [address] Coronavirus HKU1 RNA Not Detected Not Detected [facility] ([facility]) Comment:Testing performed by : [facility], [address] [place] [address]., [address] Coronavirus NL63 RNA Not Detected Not Detected [facility] ([facility]) Comment:Testing performed by : [facility], [address] [place] [address]., [address] Coronavirus OC43 RNA Not Detected Not Detected [facility] ([facility]) Comment:Testing performed by : [address], [address] Adenovirus DNA Not Detected Not Detected [facility] ([facility]) Comment:Testing performed by : [address], [address] Metapneumovirus RNA Not Detected Not Detected [facility] ([facility]) Comment:Testing performed by : [address], [address] Rhinovirus/Enterov irus RNA Not Detected Not Detected [facility] ([facility]) Comment:Testing performed by : [facility], [address] [place] [address]., [address] Parainfluenza 1 RNA Not Detected Not Detected [facility] ([facility]) Comment:Testing performed by : [facility], [address] [place] [address]., [address] Parainfluenza 2 RNA Not Detected Not Detected [facility] ([facility]) Comment:Testing performed by : [facility], [address] [place] [address]., [address] Parainfluenza 3 RNA Not Detected Not Detected [facility] ([facility]) Comment:Testing performed by : [facility], [address] [place] [address]., [address] Parainfluenza 4 RNA Not Detected Not Detected [facility] ([facility]) Comment:Testing performed by : [facility], [address] [place] [address]., [address] B. pertussis DNA Not Detected Not Detected [facility] ([facility]) Comment:Testing performed by : [facility], [address] [place] [address]., [address] B. parapertussis DNA Not Detected Not Detected [facility] ([facility]) Comment:Testing performed by : [facility], [address] [place] [address]., [address] C. pneumoniae DNA Not Detected Not Detected [facility] ([facility]) Comment:Testing performed by : [facility], [address] [place] [address]., [address] M. pneumoniae DNA Not Detected Not Detected [facility] ([facility]) Comment: Interpretive Data The [employer] FilmArray Respiratory Panel (RP2.1) assay is a [...] assay has FDA clearance for testing of DATABASES SOFTWARE CONSULTANT swabs. ??The performance characteristics of this assay have been determined by [facility]. Current interpretive data was last revised on 2020. Testing performed by: [facility], [address] [place] [address]., [id number] Nasopharyngeal 05/01/2024 10 :04 AM SUPERVISOR FILES 05/01/2024 11:23 AM SUPERVISOR FILES Narrative [facility] ([place]) - 05/01/2024 12:24 PM SUPERVISOR FILES Is the Patient experiencing symptoms consistent with COVID?->Yes Surveillance testing for transplant patient?->No Shara Yates DO LAB MICROBIOLOGY - GEN ERAL ORDERABLES Final Result [facility] ([place]) 1 [facility] [place] [address] CH * XR CHEST 1 VIEW PORTABLE (05/01/2024 9:53 AM SUPERVISOR FILES) Anatomical Region Laterality Modality Body, Chest N/A Computed Radiogr aphy 05/01/2024 12:2 9 PM SUPERVISOR FILES Narrative 05/01/2024 12:30 PM SUPERVISOR FILES EXAM DESCRIPTION: ?? XR CHEST 1 VIEW [...] PM T: ??05/01/2024 12:30 PM Report ID: [id number] Reading Location: ??[id number] Procedure Note Dong Thorne MD - 05/01/2024 [...] Dong Thorne M.D. RB: RB Report ID: [id number] Reading Location: [id number] Shara Yates DO IMG XR PROCEDURES Maeve l Result * Lactate (05/01/2024 8:52 AM SUPERVISOR FILES) Lactate 1.3 0.7 - 2.0 mmol/L Blood 05/01/2024 8:52 AM SUPERVISOR FILES 05/01/2024 9:01 AM SUPERVISOR FILES Shara Yates DO LAB BLOOD ORDERABLES F inal Result [facility] ([place]) 1 [facility] [place] [address] * eGFR (05/01/2024 8:52 AM SUPERVISOR FILES) eGFR >90 >=60 mL/min/1. 73 m2 Comment: [...] last reviewed 2021. Blood 05/01/2024 8:52 AM SUPERVISOR FILES 05/01/2024 9:40 AM SUPERVISOR FILES Shara Yates DO LAB BLOOD ORDERABLES F inal Result [facility] ([facility]) 1 [facility] [place] [address] * (ABNORMAL) CBC without differential (05/01/2024 8:52 AM SUPERVISOR FILES) Pathologist [facility] WBC 6.4 3.8 - 9.9 K/cumm Hgb [...] [facility] ([facility]) Blood 05/01/2024 8:52 AM SUPERVISOR FILES 05/01/2024 9:40 AM SUPERVISOR FILES Shara Yates DO LAB BLOOD ORDERABLES F inal Result Performing Organization Address [facility]/ZIP Co de Phone Number [facility] ([facility]) 1 [facility] [place] [address] * (ABNORMAL) Comprehensive metabolic panel (05/01/2024 8:52 AM SUPERVISOR FILES) Sodium 132(L) 135 - 145 mmol/L Potassium, [...] [facility] (ALLI) Blood 05/01/2024 8:52 AM SUPERVISOR FILES 05/01/2024 9:40 AM SUPERVISOR FILES Shara Yates DO LAB BLOOD ORDERABLES F inal Result [facility] (ALLI) [address] [facility] [place] [address] * (ABNORMAL) Blood culture Blood (04/30/2024 8:47 PM SUPERVISOR FILES) Pathologist [facility] Direct Specimen Exam Molecular Analysis: Methicillin-suscep tible Staphylococcus aureus (MSSA) detected by the maxx ePlex BCID-GP panel. This test does not exclude the possibility of a mixed bacterial infection. Notification of: Methicillin-suscep tible Staphylococcus aureus (MSSA) called to and read back by: Latrice Wellington MLS ([phone]) on 05/02/2024 01:41:52 by: Fritz Kebede MLS Comment:Testing performed by : [facility], [address] [place] [address]., [id number] Direct Specimen Exam Stain: Gram Positive Cocci in clusters Time to culture positivity (anaerobic media): 22.7 hours Notification of: Gram Positive Cocci in clusters called to and read back by: Latrice Wellington MLS ([phone]) on 05/01/2024 23:41:23 by: Fritz Kebede MLS Test result called to and read back by fabio stephenson on 05/02/2024 00:23:23 by latrice RENAE (ALLI) Comment:Testing performed by : [facility], [address] [place] [address]., [id number] Report Final Report: Staphylococcus aureus Methicillin susceptible (MSSA) by penicillin binding protein 2a (PBP2a) testing. (.) AMIE RENAE (ALLI) Comment:Testing performed by : [facility], [address] [place] [address]., [id number] Organism STAPHYLOCOCCUS AUREUS AMIE RENAE (ALLI) Blood 04/30/2024 8:47 PM SUPERVISOR FILES 05/01/2024 Kris RENAE (ALLI) - 05/06/2024 1:15 PM SUPERVISOR FILES From a different site than #1. Collection->Peripheral [...] performance characteristics have been verified by the [facility] Microbiology Laboratory. For questions about this culture, contact the Microbiology Laboratory at [phone]. Interpretive data was last revised on 24. [...] GENERAL LINDEN LARSEN Final Result AMIE RENAE [facility] [address] [facility] [place] [address] * Blood culture Blood (04/30/2024 8:47 PM SUPERVISOR FILES) Report Final Report: No growth Comment:Testing performed by : [facility], [address] [facility], [place]., [address] Blood 04/30/2024 8:47 PM SUPERVISOR FILES 05/01/2024 Narrative AMIE RENAE (ALLI) - 05/05/2024 7:00 AM SUPERVISOR FILES Collection->Peripheral 1. ?Blood cultures are incubated for [...] performance characteristics have been verified by the [facility]biology [facility]. For questions about this culture, contact the Microbiology Laboratory at [phone]. Interpretive data was last revised on 24. us Guille Wall MD LAB MICROBIOLOGY - [facility] Final Result AMIE RENAE (ALLI) 1 [facility] [place] [address] * MRI Lumbar Spine WO Contrast (04/30/2024 2:26 PM SUPERVISOR FILES) Anatomical Region Laterality Modality Spine N/A Magnetic Resonan ce 04/30/2024 4:06 PM SUPERVISOR FILES Narrative 04/30/2024 4:12 PM SUPERVISOR FILES EXAM DESCRIPTION: ?? MRI LUMBAR SPINE WO [...] PM T: ??04/30/2024 4:12 PM Report ID: [id number] Reading Location: ??[id number] Procedure Note Bo Travis MD - 04/30/2024 [...] Relevant portions of CT abdomen pelvis with jxurvsej40/19/2025. FINDINGS: SEGMENTATION: No lumbosacral transitional anatomy. The [...] Bo Travis M.D. DORIS: DORIS Report ID: [id number] Reading Location: [id number] Zee Khan MD [facility] PROCEDURES Final Result * CT Abdomen Pelvis W Contrast (04/29/2024 9:22 AM SUPERVISOR FILES) Anatomical Region Laterality Modality Body N/A Computed Tomogra phy 04/29/2024 12:5 1 PM SUPERVISOR FILES Narrative 04/29/2024 12:58 PM SUPERVISOR FILES EXAM DESCRIPTION: ?? CT ABDOMEN PELVIS W [...] PM T: ??04/29/2024 12:58 PM Report ID: [id number] Reading Location: ??[id number] Procedure Note Dave Chaudhry MD - 04/29/2024 [...] Alphonso Chaudhry M.D. DORIS: DORIS Report ID: [id number] Reading Location: [place] [address] Zee Khan MD IMG CT PROCEDURES Final Result * eGFR (04/29/2024 4:53 AM SUPERVISOR FILES) eGFR >90 >=60 mL/min/1. 73 m2 Comment: [...] last reviewed 2021. Blood 04/29/2024 4:53 AM SUPERVISOR FILES 04/29/2024 5:18 AM SUPERVISOR FILES us Zee Khan MD LAB BLOOD ORDERABLES Fin al Result [facility] ([place]) 1 [facility] [place] [address] * Differential, auto (04/29/2024 4:53 AM SUPERVISOR FILES) Neutrophil abs 2.2 1.5 - 6.5 K/cumm [...] revised on 2017. Blood 04/29/2024 4:53 AM SUPERVISOR FILES 04/29/2024 5:17 AM SUPERVISOR FILES us Zee Khan MD LAB BLOOD ORDERABLES Fin al Result [facility] (ALLI) 1 [facility] [place] [address] * (ABNORMAL) CBC with auto differential (04/29/2024 4:53 AM SUPERVISOR FILES) WBC 4.4 3.8 - 9.9 K/cumm Hgb [...] (ALLI) MCHC 33.4 32.3 - 35.7 g/dL [facility] (ALLI) RDW CV 13.4 11.1 - 14.9 % [facility] ([facility]I) RDW SD 47.5 35.7 - 48.1 fL [facility] ([facility]) NRBC abs 0.00 0.00 - 0.01 K/cumm [facility] (ALLI) Blood 04/29/2024 4:53 AM SUPERVISOR FILES 04/29/2024 5:17 AM SUPERVISOR FILES Zee Khan MD LAB BLOOD ORDERABLES Fin al Result [facility] ([place]) [address] [facility] [place] [address] * (ABNORMAL) Phosphorus (04/29/2024 4:53 AM SUPERVISOR FILES) Phosphorus, pl 4.6(H) 2.3 - 4.5 mg/dL Blood 04/29/2024 4:53 AM SUPERVISOR FILES 04/29/2024 5:18 AM SUPERVISOR FILES Zee Khan MD LAB BLOOD ORDERABLES Fin al Result AMIE RENAE ([place]) 1 [facility] [place] [address] * Magnesium (04/29/2024 4:53 AM SUPERVISOR FILES) Magnesium 1.6 1.4 - 2.5 mg/dL Blood 04/29/2024 4:53 AM SUPERVISOR FILES 04/29/2024 5:18 AM SUPERVISOR FILES Zee Khan MD LAB BLOOD ORDERABLES Fin al Result AMIE RENAE ([place]) 1 [facility] [place] [address] * Hepatic function panel (04/29/2024 4:53 AM SUPERVISOR FILES) Bilirubin, total 0.3 0.1 - 1.2 mg/dL Bilirubin, direct 0.1 0.1 - 0.3 mg/dL [facility] ([facility]I) Protein, pl 6.9 6.5 - 8.5 g/dL [facility] ([facility]) Albumin 3.6 3.5 - 5.0 g/dL [facility] ([facility]I) Alk phos 89 40 - 130 Units/L [facility] ([facility]) ALT 16 7 - 45 Units/L [facility] AST 27 10 - 45 Units/L [facility] (ALLI) Blood 04/29/2024 4:53 AM SUPERVISOR FILES 04/29/2024 5:18 AM SUPERVISOR FILES us Zee Khan MD LAB BLOOD ORDERABLES Fin al Result [facility] (ALLI) 1 [facility] [place] [address] * Basic metabolic panel (04/29/2024 4:53 AM SUPERVISOR FILES) Sodium 139 135 - 145 mmol/L Potassium, pl 3.8 3.3 - 4.9 mmol/L [facility] ([facility]I) Chloride 104 97 - 110 mmol/L [facility] CO2 25 22 - 32 mmol/L [facility] (ALLI) Anion gap 10 2 - 15 mmol/L [facility] ([facility]I) BUN 23 6 - 25 mg/dL [facility] (ALLI) Creatinine 0.61 0.60 - 1.10 mg/dL [facility] Glucose 85 70 - 199 mg/dL [facility] (ALLI) Comment: Interpretive Data Fasting [...] [facility] ([facility]) Blood 04/29/2024 4:53 AM SUPERVISOR FILES 04/29/2024 5:18 AM SUPERVISOR FILES Zee Khan MD LAB BLOOD ORDERABLES Fin al Result Performing Organization Address City/[facility] Co de Phone Number [facility] (ALLI) [address] [facility] [place] [address] * Lipase (04/28/2024 1:16 PM SUPERVISOR FILES) Lipase 90 10 - 99 Units/L Blood 04/28/2024 1:16 PM SUPERVISOR FILES 04/28/2024 1:47 PM SUPERVISOR FILES Zee Khan MD LAB BLOOD ORDERABLES Fin al Result Performing Organization Address [facility] de Phone Number [facility] 1 [facility] [place] [address] * Hepatic function panel (04/28/2024 1:16 PM SUPERVISOR FILES) Bilirubin, total 0.3 0.1 - 1.2 mg/dL [...] Moderately Hemolyzed Specimen Blood 04/28/2024 1:16 PM SUPERVISOR FILES 04/28/2024 2:18 PM SUPERVISOR FILES us Zee Khan MD LAB BLOOD ORDERABLES Fin al Result Performing Organization Address [facility] Phone Number [facility] ([facility] 1 [facility] Department of Laboratories [place] [id number] * eGFR (04/26/2024 8:41 AM SUPERVISOR FILES) eGFR >90 >=60 mL/min/1. 73 m2 Comment: [...] last reviewed 2021. Blood 04/26/2024 8:41 AM SUPERVISOR FILES 04/26/2024 8:57 AM SUPERVISOR FILES us Maddie White MD LAB BLOOD ORDERABLES Maeve l Result [facility] (ALLI) 1 [facility] [place] [address] * (ABNORMAL) CBC without differential (04/26/2024 8:41 AM SUPERVISOR FILES) Pathologist [facility] WBC 6.4 3.8 - 9.9 K/cumm Hgb [...] [facility] ([facility]) Blood 04/26/2024 8:41 AM SUPERVISOR FILES 04/26/2024 8:57 AM SUPERVISOR FILES us Maddie White MD LAB BLOOD ORDERABLES Maeve l Result [facility] (ALLI) 1 [facility] [place] [address] * Comprehensive metabolic panel (04/26/2024 8:41 AM SUPERVISOR FILES) Pathologist [facility] Sodium 138 135 - 145 mmol/L Potassium, [...] [facility] ([facility]) Blood 04/26/2024 8:41 AM SUPERVISOR FILES 04/26/2024 8:57 AM SUPERVISOR FILES us Maddie White MD LAB BLOOD ORDERABLES Maeve lopez Result [facility] (ALLI) 1 [facility] Department of Laboratories [place], [place] [id number] * eGFR (04/25/2024 8:53 AM SUPERVISOR FILES) eGFR >90 >=60 mL/min/1. 73 m2 Comment: [...] last reviewed 2021. Blood 04/25/2024 8:53 AM SUPERVISOR FILES 04/25/2024 8:55 AM SUPERVISOR FILES us Chang Mckeon MD LAB BLOOD ORDERABLE S Final Result AMIE RENAE ([place]) 1 [facility] [place] [address] * (ABNORMAL) Differential, auto (04/25/2024 8:53 AM SUPERVISOR FILES) Neutrophil abs 6.3 1.5 - 6.5 K/cumm Imm gran abs 0.0 0.0 - 0.1 K/cumm [facility] ([facility]) Lymphocyte abs 0.6(L) 0.8 - 3.3 K/cumm [facility] ([place]) Monocyte abs 0.5 0.2 - 0.8 K/cumm [facility] ([place]) Eosinophil abs 0.0 0.0 - 0.5 K/cumm [...] revised on 2017. Blood 04/25/2024 8:53 AM SUPERVISOR FILES 04/25/2024 8:55 AM SUPERVISOR FILES us Chang Mckeon MD LAB BLOOD ORDERABLE S Final Result AMIE RENAE (ALLI) 1 [facility] [place] [address] * (ABNORMAL) CBC with auto differential (04/25/2024 8:53 AM SUPERVISOR FILES) WBC 7.4 3.8 - 9.9 K/cumm Hgb 14.8 11.9 - 15.5 g/dL [facility] Hct 42.1 35.6 - 45.5 % [facility] ([facility]) Plt 123(L) 150 - 400 K/cumm [facility] ([facility]) MPV 10.9 9.1 - 12.3 fL [facility] RBC 4.53 3.90 - 5.20 M/cumm [facility] ([facility]) MCV 92.9 81.3 - 96.4 fL [facility] ([facility]) MCH 32.7 27.1 - 33.3 pg [facility] ([facility]) MCHC 35.2 32.3 - 35.7 g/dL [facility] RDW CV 13.1 11.1 - 14.9 % [facility] ([facility]) RDW SD 43.8 35.7 - 48.1 fL [facility] NRBC abs 0.00 0.00 - 0.01 K/cumm [facility] Blood 04/25/2024 8:53 AM SUPERVISOR FILES 04/25/2024 8:55 AM SUPERVISOR FILES us Chang Mckeon MD LAB BLOOD ORDERABLE S Final Result [facility] (ALLI) 1 [facility] Department of Laboratories [place] [id number] * aPTT (04/25/2024 8:53 AM SUPERVISOR FILES) aPTT 29 28 - 38 sec [facility] (ALLI) Comment: Interpretive Data Heparin therapeutic range: 66.0 - 100.0 seconds. Range based on correlation with therapeutic heparin activity range of 0.3 - 0.7 Units/mL. Current interpretive data was last revised on 2023. Blood 04/25/2024 8:53 AM SUPERVISOR FILES 04/25/2024 5:58 PM SUPERVISOR FILES us Maddie White MD LAB BLOOD ORDERABLES Maeve l Result Performing Organization Address City/[facility]/ZIP Co de Phone Number AMIE RENAE ([place]) [address] [place] [address] * Protime-INR (04/25/2024 8:53 AM SUPERVISOR FILES) PT 11.5 9.7 - 13.0 sec [facility] ([place]) INR 1.06 0.90 - 1.20 [facility] ([place]) Comment: Interpretive data Oral anticoagulant therapeutic ranges: Venous thromboembolism prophylaxis or treatment: 2.0-3.0 CARDIOLOGY Standard range: 2.0-3.0 High-intensity range: 2.5-3.5 Refer to indication-specific guidelines for appropriate target ranges for prosthetic heart valve replacement. Current interpretive data was last revised on 2019. Blood 04/25/2024 8:53 AM SUPERVISOR FILES 04/25/2024 5:58 PM SUPERVISOR FILES us Maddie White MD LAB BLOOD ORDERABLES Maeve l Result Performing Organization Address [facility] Co de Phone Number AMIE RENAE ([place]) 1 [facility] [place] [address] * Magnesium (04/25/2024 8:53 AM SUPERVISOR FILES) Magnesium 1.4 1.4 - 2.5 mg/dL Blood 04/25/2024 8:53 AM SUPERVISOR FILES 04/25/2024 9:56 AM SUPERVISOR FILES us Chang Mckeon MD LAB BLOOD ORDERABLE S Final Result Performing Organization Address City/[facility] Co de Phone Number [facility] ([place]) [address] [facility] [place] [address] * (ABNORMAL) Ethanol (04/25/2024 8:53 AM SUPERVISOR FILES) Ethanol 59(H) <=10 mg/dL Comment: Interpretive Data Legal limit of intoxication > or = 80 mg/dL Levels > or = 400 mg/dL are potentially TOXIC. Current interpretive data was last revised on 2018. Blood 04/25/2024 8:53 AM SUPERVISOR FILES 04/25/2024 8:55 AM SUPERVISOR FILES us Chang Mckeon MD LAB BLOOD ORDERABLE S Final Result [facility] (ALLI) 1 [facility] [place] [address] * (ABNORMAL) Comprehensive metabolic panel (04/25/2024 8:53 AM SUPERVISOR FILES) Sodium 134(L) 135 - 145 mmol/L Potassium, [...] Hemolyzed S pecimen Blood 04/25/2024 8:53 AM SUPERVISOR FILES 04/25/2024 8:55 AM SUPERVISOR FILES us Chang Mckeon MD LAB BLOOD ORDERABLE S Final Result [facility] (ALLI) 1 [facility] [place] [address] * eGFR (04/25/2024 8:33 AM SUPERVISOR FILES) eGFR >90 >=60 mL/min/1. 73 m2 Comment: [...] last reviewed 2021. Blood 04/25/2024 8:33 AM SUPERVISOR FILES 04/25/2024 8:41 AM SUPERVISOR FILES us Jesenia Mckeon MD LAB BLOOD ORDERABLES Final Re sult AMIE RE[facility] ([place]) 1 [facility] [place] [address] * (ABNORMAL) Drugs of Abuse Screen, Urine without Confirmation (04/25/2024 8:33 AM SUPERVISOR FILES) Amphetamine, ur Screen Positive, presumptive (A) CutOff [...] revised on 2017. Urine 04/25/2024 8:33 AM SUPERVISOR FILES 04/25/2024 8:43 AM SUPERVISOR FILES Narrative [facility] ([facility]) - 04/25/2024 9:03 AM SUPERVISOR FILES Drug of Abuse screening is performed by immunoassay for medical purposes only. ??This is not to be used for Pain Management purposes. us Jesenia Mckeon MD LAB URINE ORDERABLES Final Re sult [facility] ([facility]I) 1 [facility] [place] [address] * (ABNORMAL) CBC without differential (04/25/2024 8:33 AM SUPERVISOR FILES) WBC 7.3 3.8 - 9.9 K/cumm Hgb [...] [facility] ([facility]I) Blood 04/25/2024 8:33 AM SUPERVISOR FILES 04/25/2024 8:41 AM SUPERVISOR FILES us Jesenia Mckeon MD LAB BLOOD ORDERABLES Final Re sult [facility] ([facility]I) 1 [facility] [place] [address] * (ABNORMAL) Comprehensive metabolic panel (04/25/2024 8:33 AM SUPERVISOR FILES) Sodium 135 135 - 145 mmol/L Potassium, [...] Hemolyzed S pecimen Blood 04/25/2024 8:33 AM SUPERVISOR FILES 04/25/2024 8:41 AM SUPERVISOR FILES us Jesenia Mckeon MD LAB BLOOD ORDERABLES Final Re sult [facility] ([facility]I) 1 [facility] [place] [address] from Last 3 Months Insurance [employer] BETTER [facility] [place] Advance Directives For more information, please contact: [phone] * Full Code (Latest Code Status on File) Date Activated Date Inactivated Comments 04/25/2024 5:41 PM 05/07/2024 7:44 PM Care Teams Cleat Layer Relationship Specialty Start Date End Date Bladimir Crowder MD [address] [place] [id number] PCP - General Family Medicine 04/25/24
--- OUTSIDE RECORDS SUMMARY | 2024-05-12 05:46 | XMS_ITS | Clinical Summary ---
Author Organization [facility] Address [address] [place] [address]. [place] [address] [place] [address] Care Team Providers Care Flux Tube Attendant Name Role Phone Ruma Meade MD Primary Care Provider [phone]- [phone] Allergies No known active allergies Medications gabapentin (NEURONTIN) 300 MG capsule Take 400 mg by mouth 3 (three) times daily. 11/03/2023 Active Active Problems Problem Noted Date Diagnosed Date Alcoholic pancreatitis (HHS/HCC) 01/13/2023 Pancreatitis (HHS/HCC) 01/11/2023 Encounters Date Type Department Care Team Description 05/09/[address] [facility] [address] [place] [address] Leticia Raymundo MD 04/03/2024 10:03 AM CARDIAC TECHNICIAN - 04/03/2024 11:59 PM CARDIAC TECHNICIAN Hospital Encounter [facility] [address] [place] [address] Leticia Raymundo MD Discharge Disposition: Home or Self Care (Routine Discharge) 04/03/2024 Travel 03/29/2024 9:00 AM CARDIAC TECHNICIAN - 03/29/2024 11:59 PM CARDIAC TECHNICIAN Hospital Encounter [facility] [address] [place] [address] Bladimir Latham MD Discharge Disposition: Home or Self Care (Routine Discharge) 03/28/2024 2:32 PM CARDIAC TECHNICIAN - 03/28/2024 11:59 PM [facility] Hospital Encounter [facility] [address] [place] [address] Leticia Raymundo MD Discharge Disposition: Home or Self Care (Routine Discharge) 03/28/[address] [facility] [address] [place] [address] Leticia Raymundo MD 03/28/2024 Travel 03/18/2024 3:01 PM CARDIAC TECHNICIAN - 03/18/2024 4:40 PM CARDIAC TECHNICIAN Emergency [facility] [address] [place] [address] [place] [address] Chin Cobb DO Abdominal Pain Discharge Disposition: Home or Self Care (Routine Discharge) 03/18/2024 Travel 03/06/[address] [place] [address] Samantha Mayo PA Referral 03/05/2024 9:30 AM CARDIAC TECHNICIAN Office Visit [address] [address] Samantha Mayo PA New Patient; Hand Pain (BILATERAL) 03/05/2024 Travel 02/29/2024 Chart Prep [address] [address] Samantha Mayo PA from Last 3 Months [...] place to sleep or slept in a skilled nursing (including now)? Yes 01/11/2023 Comments No Sex and Gender Information Value Date Recorded Sex Assigned at Not on file Legal Sex Female 2:39 PM CDT Gender Identity Not on file Sexual Orientation Not on file Last Filed Vital Signs Vital Sign Reading Time Taken Comments Blood Pressure 139/79 03/18/2024 4:25 PM CARDIAC TECHNICIAN Pulse 75 03/18/2024 4:25 PM CARDIAC TECHNICIAN Temperature 36.4 ??C (97.5 ??F) 03/18/2024 3:16 PM CS T Respiratory Rate 18 03/18/2024 4:25 PM CARDIAC TECHNICIAN Oxygen Saturation 98% 03/18/2024 4:25 PM CARDIAC TECHNICIAN Inhaled Oxygen Concentration - - Weight 68 kg (150 lb) 03/18/2024 3:16 PM CARDIAC TECHNICIAN Height 162.6 cm (5' 4 ) 03/18/2024 3:16 PM CARDIAC TECHNICIAN Body Mass Index 25.75 03/18/2024 3:16 PM CARDIAC TECHNICIAN Plan of Treatment Upcoming Encounters Date Type Department Care Team (Late st Contact Info) Description 05/26/2024 10:00 PM CARDIAC TECHNICIAN Hospital Encounter [facility] [address] [address] Leticia Raymundo MD [address] [place] [address] Health Maintenance Due Date Last [...] CHEST WO CON Routine 04/03/2024 10:16 AM CARDIAC TECHNICIAN Lung nodule MG SCREENING W BIRGIT LUCIAN DIGI Routine 03/29/2024 10:02 AM CARDIAC TECHNICIAN Visit for screening mammogram TBGOLD-TUBERCULOSIS TST CELL MEDIATED IMMUNITY Routine 03/28/2024 2:50 PM CARDIAC TECHNICIAN Lung nodule FUNGAL PANEL 1 Routine 03/28/2024 2:50 PM CARDIAC TECHNICIAN Lung nodule DRUG SCREEN RAPID STAT 03/18/2024 3:3 5 PM CARDIAC TECHNICIAN HC URINALYSIS AUTO W/MICRO STAT 03/18/2024 3:35 PM CARDIAC TECHNICIAN ETHANOL STAT 03/18/2024 3:28 PM CARDIAC TECHNICIAN MAGNESIUM STAT 03/18/2024 3:28 PM CARDIAC TECHNICIAN LIPASE STAT 03/18/2024 3:28 PM CARDIAC TECHNICIAN LDH, LACTATE DEHYDROGENASE STAT 03/18/2024 3:28 PM CARDIAC TECHNICIAN LACTIC ACID W REFLEX (SEPSIS) STAT 03/18/2024 3:28 PM CARDIAC TECHNICIAN COMPREHENSIVE METABOLIC PANEL STAT 03/18/2024 3:28 PM CARDIAC TECHNICIAN CBC W/DIFF AUTOMATED STAT 03/18/2024 3:28 PM CARDIAC TECHNICIAN from Last 3 Months Results * CT CHEST WO CON (04/03/2024 10:16 AM CARDIAC TECHNICIAN) Anatomical Region Laterality Modality Chest Computed Tomogra phy 04/03/2024 12:1 3 PM CARDIAC TECHNICIAN Impressions 04/03/2024 3:06 PM CARDIAC TECHNICIAN Impression: 1. Right lower lobe pulmonary nodule [...] 04/03/2024 12:13 PM Narrative 04/03/2024 3:06 PM CARDIAC TECHNICIAN [address] [place] [address] Examination: CT CHEST WO CON Clinical Information: [...] Procedure Note Vivek Ellison MD - 04/03/[address] [place] [address] Examination: CT CHEST WO CON Clinical Information: [...] W BIRGIT LUCIAN DIGI (03/29/2024 10:02 AM CARDIAC TECHNICIAN) Anatomical Region Laterality Modality Breast Bilateral Mammography 03/29/2024 11:5 4 AM CARDIAC TECHNICIAN Impressions 03/29/2024 11:55 AM CARDIAC TECHNICIAN IMPRESSION: No mammographic evidence of malignancy. Recommendation: 1: Routine Screening ??Bilateral ??in 1 Year Assessment: ACR BI-RADS 2 - BENIGN FINDING(S) Ordered By: BLADIMIR LATHAM Interpreted By: Varun Quevedo MD, 03/29/2024 11:54 AM Narrative 03/29/2024 11:55 AM CARDIAC TECHNICIAN [address] [place] [address] Examination: Digital screening mammogram with CAD. [...] FUNGAL ANTIBODY PANEL (ID) (03/28/2024 2:50 PM CARDIAC TECHNICIAN) ASPERGILLUS FLAVUS AB Negative Negative 2:34 PM CARDIAC TECHNICIAN [facility] SANCHEZ-CHANT LUPILLO ASPERGILLUS NIGER AB Negative Negative 03/12 2:34 PM CARDIAC TECHNICIAN [facility] ASPERGILLUS FUMIGATUS AB Negative Negative 04/02/2024 2:34 PM CARDIAC TECHNICIAN [facility] Comment: ?Interpretive Criteria: ?? Negative: Antibody not detected ?? Positive: Antibody detected A positive result is represented by 1 or more precipitin bands, and may indicate fungus ball, allergic bronchopulmonary aspergillosis (EUSEBIO) or invasive aspergillosis. Generally, the appearance of 3-4 bands indicates either fungus ball or EUSEBIO. BLASTOMYCES AB Negative Negative 04/02/2024 2:34 PM CARDIAC TECHNICIAN [facility] Comment: ?Interpretive Criteria: ?? Negative: Antibody not detected ?? Positive: Antibody detected A positive result is diagnostic of active or recent blastomycosis and is found in approximately 80% of proven cases of blastomycosis. COCCIDIODES AB (ID) Negative Negative 04/02 2:34 PM CARDIAC TECHNICIAN [facility] Comment: Interpretive Criteria: [...] H AB Negative Negative 04/02/2024 2:34 PM CARDIAC TECHNICIAN [facility] [place] [facility] [address] Comment: This immunodiffusion assay is [...] of histoplasmosis. Test Performed by Tee Yu, [employer] [facility], [address] [place] [address] Shawn Christianson M.D., Ph.D., Director of Laboratories , [place] [id number] HISTOPLASMA CAPSULATUM M AB Negative Negative 04/02/2024 2:34 PM CARDIAC TECHNICIAN [facility] [place] [facility] [address] 03/28/2024 2:50 PM CARDIAC TECHNICIAN Leticia Raymundo MD LABORATORY Final Result [facility] [address], * QUANTIFERON TBGOLD TUBERCULOSIS TEST (03/28/2024 2:50 PM CARDIAC TECHNICIAN) TB1 AG MINUS NIL 0.03 IU/ML 03/29/20 1:43 PM CARDIAC TECHNICIAN [facility] TB2 AG MINUS NIL 0.01 IU/ML 03/29/20 24 1:43 PM CARDIAC TECHNICIAN [facility] TB QUANTIFERON NEGATIVE NEGATIVE 03/29/2024 1:43 PM CARDIAC TECHNICIAN [facility] TB INTERPRETATION M. tuberculosis infection unlikely but cannot be excluded especially when any illness is consistent with TB disease and/or likelihood of progression to disease is increased. ?? In patients at high risk to M. tuberculosis infection, a second test should be considered. 03/29/2024 1:43 PM CARDIAC TECHNICIAN [facility] 03/28/2024 2:50 PM CARDIAC TECHNICIAN Leticia Raymundo MD LABORATORY Final Result [facility] [address] [place] [address], [id number] * (ABNORMAL) DRUG SCREEN RAPID (03/18/2024 3:35 PM CARDIAC TECHNICIAN) Pathologist [facility] CANNABINOIDS SCREEN (U) POSITIVE(A) NEGATIVE 03/18/2024 3:[address] [facility] PHENCYCLIDINE PCP (U) NEGATIVE NEGATIVE 03/18/2024 3:[address] [facility] COCAINE METABOLITES (U) NEGATIVE NEGATIVE 03/18/2024 3:[address] [facility] METHAMPHETAMINE SCREEN (U) NEGATIVE NEGATIVE 03/18/2024 3:[address] [facility] OPIATE SCREEN (U) POSITIVE(A) NEGATIVE 2023 3:[address] [facility] AMPHETAMINE SCREEN (U) NEGATIVE NEGATIVE 03/18/2024 3:[address] [facility] BENZODIAZEPINES SCREEN (U) POSITIVE(A) NEGATIVE 03/18/2024 3:[address] [facility] TRICYCLIC ANTIDEPRESSANT SCREEN (U) NEGATIVE NEGATIVE 03/18/2024 3:[address] [facility] METHADONE (U) NEGATIVE NEGATIVE 03/18/2024 3:[address] [facility] BARBITURATES SCREEN (U) NEGATIVE NEGATIVE 03/18/2024 3:[address] [facility] OXYCODONE SCREEN (U) NEGATIVE NEGATIVE 03/18/2024 3:[address] [facility] URINE TOX COMMENT THIS TEST METHODOLOGY IS DESIGNED AND OFFERED A RAPID TURNAROUND, QUALITATIVE SCREENING PROCEDURE TO AID IN THE IMMEDIATE MEDICAL ASSESSMENT OF PATIENTS SUSPECTED OF SUBSTANCE ABUSE. 03/18/2024 3:[address] [facility] Comment: CLINICAL CONSIDERATION AND PROFESSIONAL JUDGMENT MUST BE APPLIED TO ANY DRUG OF ABUSE TEST RESULT, BOTH POSITIVE AND NEGATIVE. CONFIRMATORY QUANTITATIVE RESULTS ARE AVAILABLE THROUGH OUR REFERENCE LABORATORY. URINE SPECIMEN / Unknown 03/18/2024 3:35 PM CARDIAC TECHNICIAN us Chin Cobb DO URINE ORDERABLES Final Result [facility] [address] [place] [address], * (ABNORMAL) URINALYSIS (03/18/2024 3:35 PM CARDIAC TECHNICIAN) COLOR (U) YELLOW 03/18/2024 3:[address] [facility] TRANSPARENCY CLEAR 03/18/2024 3:[address] [facility] SPECIFIC GRAVITY (U) 1.020 1.000 - 1.025 03/18/2024 3:[address] [facility] U PH 6.0 5.0 - 8.0 03/18/2024 3:[address] [facility] LEUKOCYTES (U) NEGATIVE NEGATIVE 03/18/2024 3:[address] [facility] NITRITES NEGATIVE NEGATIVE 03/18/2024 3:[address] [facility] PROTEIN RANDOM (U) NEGATIVE NEGATIVE 03/18/2024 3:[address] [facility] GLUCOSE (U) NEGATIVE NEGATIVE 03/18/2024 3:[address] [facility] KETONES MG/DL (U) NEGATIVE NEGATIVE 03/18/2024 3:[address] [facility] UROBILINOGEN 1.0(H) <1.0 EU/DL 03/18/2024 3:[address] [facility] BILIRUBIN (U) NEGATIVE NEGATIVE 03/18/2024 3:[address] [facility] BLOOD (U) NEGATIVE NEGATIVE 03/18/2024 3:[address] [facility] WBC/HPF 0-5 0 - 5 /HPF 03/18/2024 3:[address] [facility] RBC/HPF 0-5 0 - 5 /HPF 03/18/2024 3:[address] [facility] EPI/LPF OCCASIONAL /LPF 03/18/2024 3:[address] [facility] BACTERIA (U) 1+ /HPF 03/18/2024 3:[address] [facility] URINE SPECIMEN OBTAINED BY CLEAN CATCH PROCEDURE / Unknown 03/18/2024 3:35 PM CARDIAC TECHNICIAN us Chin Cobb DO [place] [address], [place] [phone] * LACTIC ACID W REFLEX (SEPSIS) (03/18/2024 3:28 PM CARDIAC TECHNICIAN) LACTIC ACID VENOUS 1.1 0.4 - 2.0 MMOL/L 03/18/2024 3:[address] [facility] 03/18/2024 3:28 PM CARDIAC TECHNICIAN us Chin Cobb DO LABORATORY Final Result Performing Organization Address City/[facility]/ZIP Co de Phone Number [facility] [address] [place] [address], [place] [phone] * (ABNORMAL) COMPREHENSIVE METABOLIC PANEL (03/18/2024 3:28 PM CARDIAC TECHNICIAN) SODIUM S/P/B 136 136 - 145 MMOL/L 03/18/2024 4:[address] [facility] POTASSIUM S/P/B 3.7 3.5 - 5.1 MMOL/L 03/18/2024 4:[address] [facility] CHLORIDE S/P/B 100 98 - 107 MMOL/L 03/18/2024 4:[address] [facility] CO2 27.7 21.0 - 32.0 MMOL/L 03/18/2024 4:02 PM [facility] GLUCOSE 69(L) 70 - 99 MG/DL 03/18/2024 4:02 PM [facility] Comment: FASTING GLUCOSE 100 TO 125 MG/DL IS CONSISTENT WITH IMPAIRED FASTING GLUCOSE. FASTING GLUCOSE >125 MG/DL IS CONSISTENT WITH DIABETES. RANDOM GLUCOSE >200 MG/DL WITH HYPERGLYCEMIC SYMPTOMS IS CONSISTENT WITH DIABETES. PER ADA GUIDELINES BUN 17 6 - 24 MG/DL 03/18/2024 4:02 PM [facility] CREATININE S/P/B 0.61 0.55 - 1.02 MG/DL 03/18/2024 4:02 PM [facility] CALCIUM S/P/B 9.0 8.4 - 10.5 MG/DL 03/18/2024 4:02 PM [facility] BILIRUBIN TOTAL S/P/B 0.6 0.2 - 1.0 MG/DL 03/18/2024 4:02 PM [facility] Comment: THIS ASSAY IS NOT RECOMMENDED FOR PATIENTS UNDERGOING TREATMENT WITH ELTROMBOPAG DUE TO THE POTENTIAL FOR FALSELY ELEVATED RESULTS. ALKALINE PHOSPHATASE S/P/B 90 39 - 100 U/L 03/18/2024 4:02 PM [facility] AST 29 15 - 37 U/L 03/18/2024 4:02 PM [facility] ALT 26 14 - 59 U/L 03/18/2024 4:02 PM [facility] TOTAL PROTEIN S/P/B 7.3 6.4 - 8.2 G/DL 03/18/2024 4:02 PM [facility] ALBUMIN S/P/B 3.6 3.4 - 5.0 G/DL 03/18/2024 4:02 PM [facility] ANION GAP 8.3 5.0 - 15.0 MMOL/L 03/18/2024 4:02 PM [facility] OSMOLALITY (CALC) 282 MOSM/KG 024 4:02 PM [facility] Comment:REFERENCE RANGE NOT ESTABLISHED GFR ESTIMATE >90 >89 ML/MIN/1. 73 M2 03/18/2024 4:[address] [facility] GFR NOTES GFR REFERENCE S: 03/18/2024 4:[address] [facility] Comment: THE ESTIMATED GFR IS [...] FAILURE: <15 ml/min/1.73 m2 03/18/2024 3:28 PM CARDIAC TECHNICIAN us Chin Cobb DO LABORATORY Final Result Performing Organization Address [facility]/ZIP Co de Phone Number [facility] [address] [place] [address], * LDH, LACTATE DEHYDROGENASE (03/18/2024 3:28 PM CARDIAC TECHNICIAN) LDH 155 81 - 234 UNITS/L 03/18/2024 4:[address] [facility] 03/18/2024 3:28 PM CARDIAC TECHNICIAN us Chin Cobb DO LABORATORY Final Result Performing Organization Address [facility] de Phone Number [facility] [address] [place] [address], * (ABNORMAL) CBC W/DIFF AUTOMATED (03/18/2024 3:28 PM CARDIAC TECHNICIAN) WBC 4.01 4.00 - 10.80 x10'3/uL 03/18/2024 3:[address] [facility] RBC 3.80(L) 4.10 - 5.40 x10'6/uL 03/18/2024 3:41 PM [facility] HGB 12.7 12.0 - 16.0 G/DL 03/18/2024 3:41 PM [facility] HCT 37.0 36.0 - 47.0 % 03/18/2024 3:41 PM [facility] MCV 97.4 78.0 - 100.0 FL 03/18/2024 3:41 PM [facility] MCH 33.4(H) 27.0 - 31.0 PG 03/18/2024 3:41 PM [facility] MCHC 34.3 33.0 - 36.0 G/DL 03/18/2024 3:41 PM [facility] RDW 12.0 11.5 - 14.5 % 03/18/2024 3:41 PM [facility] PLT 87(L) 150 - 350 x10'3/uL 03/18/2024 3:41 PM [facility] MPV 10.3 7.4 - 10.4 FL 03/18/2024 3:41 PM [facility] CBC COMMENT NORMAL REFERENCE RANGE NOT ESTABLISHED FOR THE PROPORTIONAL LEUKOCYTE DIFFERENTIAL. 03/18/2024 3:41 PM [facility] NEUTROPHILS % 51.4 % 03/18/2024 4:15 PM [facility] LYMPHOCYTES % 36.2 % 03/18/2024 4:15 PM [facility] MONOCYTES % 9.2 % 03/18/2024 4:15 PM [facility] EOSINOPHILS % 2.5 % 03/18/2024 4:15 PM [facility] BASOPHILS % 0.5 % 03/18/2024 4:15 PM [facility] IMMATURE GRANS % 0.2 % 03/18/20 4:15 PM [facility] NRBC % 0.0 % 03/18/2024 4:15 PM [facility] ABS. NEUTROPHILS 2.06 1.60 - 8.30 x10'3/uL 03/18/2024 4:15 PM [facility] ABS. LYMPHOCYTES 1.45 0.80 - 4.70 x10'3/uL 03/18/2024 4:[address] [facility] ABS. MONOCYTES 0.37 0.00 - 1.50 x10'3/uL 03/18/2024 4:[address] [facility] ABS. EOSINOPHILS 0.10 0.00 - 0.40 x10'3/uL 03/18/2024 4:[address] [facility] ABS. BASOPHILS 0.02 0.00 - 0.20 x10'3/uL 03/18/2024 4:[address] [facility] ABS. IMMATURE GRANULOCYTES 0.01 0.00 - 0.03 x10'3/uL 03/18/2024 4:[address] [facility] ABS. NUCLEATED RBC'S 0.00 0.00 - 0.01 x10'3/uL 03/18/2024 4:[address] [facility] PLT MORPH. DECREASED 03/18/2024 4:[address] [facility] RBC MORPHOLOGY NORMAL 03/18/2024 4:[address] [facility] 03/18/2024 3:28 PM CARDIAC TECHNICIAN us Chin Cobb DO LABORATORY Final Result Performing Organization Address [facility] [place] [place] [address], * (ABNORMAL) MAGNESIUM (03/18/2024 3:28 PM CARDIAC TECHNICIAN) MAGNESIUM 1.6(L) 1.8 - 2.4 MG/DL 03/18/2024 4:[address] [facility] 03/18/2024 3:28 PM CARDIAC TECHNICIAN us Chin Cobb DO LABORATORY Final Result Performing Organization Address City/[facility]/ZIP Co de Phone Number [facility] [address] [place] [address], * (ABNORMAL) LIPASE (03/18/2024 3:28 PM CARDIAC TECHNICIAN) LIPASE 83(H) 16 - 77 UNITS/L 03/18/2024 4:[address] [facility] 03/18/2024 3:28 PM CARDIAC TECHNICIAN us Chin Cobb DO LABORATORY Final Result Performing Organization Address [facility]/ZIP Co de Phone Number [facility] [address] [place] [address], * ETHANOL (03/18/2024 3:28 PM CARDIAC TECHNICIAN) ALCOHOL S/P/B <0.003 <0.003 G/DL 03/18/2024 4:[address] [facility] 03/18/2024 3:28 PM CARDIAC TECHNICIAN us Chin Cobb DO LABORATORY Final Result Performing Organization Address [facility] de Phone Number [facility] [address] [place] [address], from Last 3 Months Insurance MEDICAID Advance Directives * Full Code (Latest Code Status on File) Date Activated Date Inactivated Comments 01/11/2023 7:19 PM 01/14/2023 10:44 PM Care Teams Flux Tube Attendant Relationship Specialty Start Date End Date Ruma Meade MD [address] [place] [phone] PCP - General FAMILY PRACTICE 03/18/24
--- OUTSIDE RECORDS SUMMARY | 2024-05-12 05:46 | XMS_ITS | Encounter Summary ---
Author Organization [facility] Address [address] [place] [address] Care Team Providers Care Manager Of Sustainability Name Role Phone Bladimir Crowder MD Primary Care Provider [phone] Encounter Details Date Type Department Care Team (Late st Contact Info) Description 04/25/2024 10:30 AM STONE MILL OPERATOR Hospital Encounter [facility] [address] [place] [address] Jesenia Mckeon MD 1 [facility] [address] [address] Social History Tobacco Use Types Packs/Day Years [...] COVID: Suspected 05/01/2024 05/01/2024 05/01/2024 12:26 PM STONE MILL OPERATOR documented as of this encounter Care Teams Manager Of Sustainability Relationship Specialty Start Date End Date Bladimir Crowder MD [address] [place] [id number] PCP - General Family Medicine 04/25/24 documented as of this encounter
--- OUTSIDE RECORDS SUMMARY | 2024-05-12 05:46 | XMS_ITS | Clinical Summary ---
Author Organization [facility] Address [address] [place] [address] Care Team Providers Care Cemetery Vault Installer Name Role Phone Bladimir Crowder MD Primary [...] Type Department Care Team Description 05/08/2024 Telephone [facility] Medical [facility] [id number] [address] Shara Yates DO 05/07/2024 Documentation [facility] Warm Hand Off Program [address] [place] [phone] Latrice Dumont 05/05/2024 Documentation [facility] [address] [place] [phone] Hilario, Jana EValentín 05/03/2024 Documentation [facility] Warm Hand Off Program [address] [place], [place] [phone] Hilario, Jana EValentín 05/02/2024 Documentation [facility] Warm Hand Off Program [address] [place] [phone] Latrice Dumont 05/01/2024 Documentation [facility] Warm Hand Off Program [address] [place] [phone] Hilario, Jana EValentín 04/30/2024 Documentation [facility] Warm Hand Off [facility] [address] [place] [phone] Latrice Dumont 04/29/2024 Documentation [facility] Warm Hand Off Program [address] [place], [place] [phone] Latrice Dumont 04/27/2024 [facility] Enrollment [facility] Warm [facility] Off [facility] [address] [place], [place] [phone] Hilario, Jana EValentín 04/25/2024 10:50 AM AIRPORT MAINTENANCE CHIEF - 05/07/2024 3:39 PM AIRPORT MAINTENANCE CHIEF Hospital Encounter [address] [address] Maddie White MD Sargsyan, Narine, MD Sinha, Chandni, MD Abegunde, Veronica O., MD Nations, Matthew Austin, Alcohol withdrawal syndrome without complication (HCC) (Primary Dx); Unspecified mood disorder (HCC) Discharge Disposition: Discharge to home or self care 04/25/2024 10:30 AM AIRPORT MAINTENANCE CHIEF Hospital Encounter [facility] Medical Care [address] [place] [phone] Jesenia Mckeon MD 04/25/2024 8:30 AM AIRPORT MAINTENANCE CHIEF Lab [address] [address] 04/25/2024 Documentation [facility] Warm Hand Off [facility] [address] [place] [address] Jana Hilario 04/25/2024 Documentation [facility] [address] [place] [address] Jana Hilario 04/23/2024 Documentation [facility] Warm [facility] Off [facility] [address] [place] [address] Latrice Dumont from Last 3 Months Social [...] Comments Blood Pressure 118/80 05/07/2024 10:52 AM AIRPORT MAINTENANCE CHIEF Pulse 74 05/07/2024 10:52 AM AIRPORT MAINTENANCE CHIEF Temperature 36.6 ??C (97.9 ??F) 05/07/2024 10:[address] Respiratory Rate 20 05/07/2024 10:52 AM AIRPORT MAINTENANCE CHIEF Oxygen Saturation 91% 05/07/2024 10:52 AM AIRPORT MAINTENANCE CHIEF Inhaled Oxygen Concentration - - Weight 78.6 kg (173 lb 4.5 oz) 05/02/2024 1:12 A M AIRPORT MAINTENANCE CHIEF Height 165.1 cm (5' 5 ) 04/29/2024 3:24 PM AIRPORT MAINTENANCE CHIEF Body Mass Index 28.84 04/29/2024 3:24 PM AIRPORT MAINTENANCE CHIEF Plan of Treatment Health Maintenance Due Date [...] Diagnosis Comments EGFR Routine 05/05/2024 12:12 PM AIRPORT MAINTENANCE CHIEF CBC WITHOUT DIFFERENTIAL Routine 05/05/2024 12:12 PM AIRPORT MAINTENANCE CHIEF COMPREHENSIVE METABOLIC PANEL Routine 05/05/2024 12:12 PM AIRPORT MAINTENANCE CHIEF TRANSTHORACIC ECHO (TTE) COMPLETE W DOPPLER/CF WO CONTRAST Routine 05/04/2024 7:30 AM AIRPORT MAINTENANCE CHIEF US UPPER EXTREMITY RIGHT LIMITED IP Routine 05/03/2024 2:05 PM AIRPORT MAINTENANCE CHIEF BLOOD CULTURE Routine 05/03/2024 1:35 PM AIRPORT MAINTENANCE CHIEF BLOOD CULTURE Routine 05/03/2024 11:25 AM AIRPORT MAINTENANCE CHIEF TROPONIN T HIGH-SENSITIVITY 6-HOUR Timed 05/02/2024 11:01 AM AIRPORT MAINTENANCE CHIEF TROPONIN T HIGH-SENSITIVITY 2-HOUR Timed 05/02/2024 6:37 AM AIRPORT MAINTENANCE CHIEF TROPONIN T HIGH-SENSITIVITY SERIES (BASELINE, 2HR, 4HR, 6HR) Routine 05/02/2024 4:17 AM AIRPORT MAINTENANCE CHIEF ECG 12-LEAD Routine 05/02/2024 2:17 AM AIRPORT MAINTENANCE CHIEF US ABDOMEN LIMITED IP Routine 05/01/2024 3: 50 PM AIRPORT MAINTENANCE CHIEF APTT STAT 05/01/2024 2:50 PM AIRPORT MAINTENANCE CHIEF PROTIME-INR STAT 05/01/2024 2:50 PM AIRPORT MAINTENANCE CHIEF URINALYSIS, MICROSCOPIC ONLY Routine 05/01/2024 10:44 AM AIRPORT MAINTENANCE CHIEF URINALYSIS AND REFLEX TO MICROSCOPIC AND CULTURE Routine 05/01/2024 10:44 AM AIRPORT MAINTENANCE CHIEF RESPIRATORY PATHOGEN PANEL Routine 05/01/2024 10:04 AM AIRPORT MAINTENANCE CHIEF XR CHEST 1 VIEW IP Routine 05/01/2024 9:53 AM AIRPORT MAINTENANCE CHIEF EGFR STAT 05/01/2024 8:52 AM AIRPORT MAINTENANCE CHIEF LACTATE STAT 05/01/2024 8:52 AM AIRPORT MAINTENANCE CHIEF COMPREHENSIVE METABOLIC PANEL STAT 05/01/2024 8:52 AM AIRPORT MAINTENANCE CHIEF CBC WITHOUT DIFFERENTIAL STAT 05/01/2024 8:52 AM AIRPORT MAINTENANCE CHIEF BLOOD CULTURE Routine 04/30/2024 8:47 PM AIRPORT MAINTENANCE CHIEF BLOOD CULTURE Routine 04/30/2024 8:47 PM AIRPORT MAINTENANCE CHIEF MRI LUMBAR SPINE WO CONTRAST IP Routine 04/30/2024 2:26 PM AIR[address] MAINTENANCE CHIEF CT ABDOMEN PELVIS W CONTRAST IP Routine 04/29/2024 9:22 AM AIRPORT MAINTENANCE CHIEF EGFR Routine 04/29/2024 4:53 AM AIRPORT MAINTENANCE CHIEF DIFFERENTIAL AUTO Routine 04/29/2024 4:5 3 AM AIRPORT MAINTENANCE CHIEF PHOSPHORUS Routine 04/29/2024 4:53 AM AIRPORT MAINTENANCE CHIEF MAGNESIUM Routine 04/29/2024 4:53 AM AIRPORT MAINTENANCE CHIEF HEPATIC FUNCTION PANEL Routine 04/29/2024 4:53 AM AIRPORT MAINTENANCE CHIEF CBC WITH AUTO DIFFERENTIAL Routine 04/29/2024 4:53 AM AIRPORT MAINTENANCE CHIEF BASIC METABOLIC PANEL Routine 04/29/2024 4:53 AM AIRPORT MAINTENANCE CHIEF HEPATIC FUNCTION PANEL Add-On 04/28/2024 1:16 PM AIRPORT MAINTENANCE CHIEF LIPASE STAT 04/28/2024 1:16 PM AIRPORT MAINTENANCE CHIEF EGFR Routine 04/26/2024 8:41 AM AIRPORT MAINTENANCE CHIEF COMPREHENSIVE METABOLIC PANEL Routine 04/26/2024 8:41 AM AIRPORT MAINTENANCE CHIEF CBC WITHOUT DIFFERENTIAL Routine 04/26/2024 8:41 AM AIRPORT MAINTENANCE CHIEF APTT STAT 04/25/2024 8:53 AM AIRPORT MAINTENANCE CHIEF PROTIME-INR STAT 04/25/2024 8:53 AM AIRPORT MAINTENANCE CHIEF MAGNESIUM Add-On 04/25/2024 8:53 AM AIRPORT MAINTENANCE CHIEF EGFR STAT 04/25/2024 8:53 AM AIRPORT MAINTENANCE CHIEF DIFFERENTIAL AUTO STAT 04/25/2024 8:5 3 AM AIRPORT MAINTENANCE CHIEF ETHANOL STAT 04/25/2024 8:53 AM AIRPORT MAINTENANCE CHIEF COMPREHENSIVE METABOLIC PANEL STAT 04/25/2024 8:53 AM AIRPORT MAINTENANCE CHIEF CBC WITH AUTO DIFFERENTIAL STAT 04/25/2024 8:53 AM AIRPORT MAINTENANCE CHIEF EGFR STAT 04/25/2024 8:33 AM AIRPORT MAINTENANCE CHIEF DRUGS OF ABUSE SCREEN, URINE WITHOUT CONFIRMATION Routine 04/25/2024 8:33 AM AIRPORT MAINTENANCE CHIEF CBC WITHOUT DIFFERENTIAL STAT 04/25/2024 8:33 AM AIRPORT MAINTENANCE CHIEF COMPREHENSIVE METABOLIC PANEL STAT 04/25/2024 8:33 AM AIRPORT MAINTENANCE CHIEF from Last 3 Months Results * eGFR (05/05/2024 12:12 PM AIRPORT MAINTENANCE CHIEF) eGFR >90 >=60 mL/min/1. 73 m2 Comment: [...] reviewed 2021. Blood 05/05/2024 12:1 2 PM AIRPORT MAINTENANCE CHIEF 05/05/2024 12:26 PM AIRPORT MAINTENANCE CHIEF us Shara Yates DO LAB BLOOD ORDERABLES F inal Result [facility] ([place]) 1 [facility] [place] [address] * (ABNORMAL) CBC without differential (05/05/2024 12:12 PM AIRPORT MAINTENANCE CHIEF) WBC 4.3 3.8 - 9.9 K/cumm Hgb 12.4 11.9 - 15.5 g/dL [facility] ([facility]) Hct 36.7 35.6 - 45.5 % [facility] ([facility]) Plt 117(L) 150 - 400 K/cumm [facility] ([place]) MPV 10.2 9.1 - 12.3 fL [facility]ER [...] [facility] ([facility]I) Blood 05/05/2024 12:1 2 PM AIRPORT MAINTENANCE CHIEF 05/05/2024 12:26 PM AIRPORT MAINTENANCE CHIEF Shara Zach [facility] DO LAB BLOOD ORDERABLES F inal Result [facility] ([facility]) 1 [facility] Department [place] [address] * (ABNORMAL) Comprehensive metabolic panel (05/05/2024 12:12 PM AIRPORT MAINTENANCE CHIEF) Sodium 138 135 - 145 mmol/L Potassium, pl 4.1 3.3 - 4.9 mmol/L [facility] ([facility]) Chloride 104 97 - 110 mmol/L [facility] ([facility]) CO2 24 22 - 32 mmol/L [facility] ([facility]) Anion gap 11 2 - 15 mmol/L [facility] ([facility]) BUN 12 6 - 25 mg/dL [facility] Creatinine 0.45(L) 0.60 - 1.10 [...] [facility] (ALLI) Blood 05/05/2024 12:1 2 PM AIRPORT MAINTENANCE CHIEF 05/05/2024 12:26 PM AIRPORT MAINTENANCE CHIEF Shara Serrano [facility] DO LAB BLOOD ORDERABLES F inal Result [facility] ([place]) 1 [facility] [place] [address] * TRANSTHORACIC ECHO (TTE) COMPLETE W DOPPLER/CF WO CONTRAST (05/04/2024 7:30 AM AIRPORT MAINTENANCE CHIEF) LV EF 60-65 % CONS SCIMAGE Anatomical Region Laterality Modality Ultrasound 05/04/2024 7:13 AM AIRPORT MAINTENANCE CHIEF Narrative 05/04/2024 4:47 PM AIRPORT MAINTENANCE CHIEF [address] [place] [address] Echocardiogram Report Patient Name: LATRICE VALENCIA : 1975 Study Date: 05/04/2024 7:13:46 AM Gender: F Tech: Location: [address] Provider: SHARA YATES ?Height(Cm): 165 BSA: [...] By: Kwaku Blanco MD 05/04/2024 4:46:44 PM AIRPORT MAINTENANCE CHIEF Procedure Note Kwaku Blanco MD - 05/04/[address] [address] Echocardiogram Report Patient Name: LATRICE VALENCIA : 1975 Study Date: 05/04/2024 7:13:46 AM Gender: F Tech: Location: [id number] Ref Provider: SHARA YATES Height(Cm): 165 BSA: [...] 2.70 - 3.70 ] MV E Peak Nicoáls 0.56 m/s[ 0.60 - 1.30 ] ACS [...] By: Kwaku Blanco MD 05/04/2024 4:46:44 PM AIRPORT MAINTENANCE CHIEF Shara Serrano [facility] DO CV ECHO PROCEDURES Fin al Result * US Upper Extremity Right Limited (05/03/2024 2:05 PM AIRPORT MAINTENANCE CHIEF) Anatomical Region Laterality Modality Upper Extremities Right Ultrasound 05/03/2024 4:48 PM AIRPORT MAINTENANCE CHIEF Narrative 05/03/2024 4:51 PM AIRPORT MAINTENANCE CHIEF EXAM DESCRIPTION: ?? US UPPER EXTREMITY RIGHT LIMITED REASON FOR STUDY: ?? Patient with cellulitis at site of right forearm prior IV site. Firmness at this area, wanting to rule out an abscess. ?? TECHNIQUE: A Dynamic assessment was performed of the soft tissues in the right elbow region by the audio visual design engineer, with selected grayscale and color Doppler images [...] PM T: ??05/03/2024 4:51 PM Report ID: [id number] Reading Location: ??[id number] Procedure Note Boyd Cook MD - 05/03/2024 EXAM DESCRIPTION: US UPPER EXTREMITY RIGHT LIMITED REASON FOR STUDY: Patient with cellulitis at site of right forearm priorIV site. Firmness at this area, wanting to rule out an abscess. TECHNIQUE: A Dynamic assessment was performed of the soft tissues in theright elbow region by the audio visual design engineer, with selected grayscale and color Doppler images acquired and recorded in PACS. COMPARISON: None FINDINGS: Thrombus is seen within a superficial vein within the region of concern,with prominent peripheral vascularity. IMPRESSION: Superficial thrombophlebitis within the region of concern. THIS IS AN ELECTRONICALLY VERIFIED FINAL REPORT 05/03/2024 4:51 PM - Electronically signed by Boyd Cook M.D. KR: CHANG Report ID: [id number] Reading Location: [id number] Shara Serrano [facility] DO IMG US PROCEDURES Maeve l Result * Blood culture Blood (05/03/2024 1:35 PM AIRPORT MAINTENANCE CHIEF) Report Final Report: No growth Comment:Testing performed by : [facility], [address] [facility], [place]., [address] Blood 05/03/2024 1:35 PM AIRPORT MAINTENANCE CHIEF 05/03/2024 4:30 PM AIRPORT MAINTENANCE CHIEF Kris RENAE (ALLI) - 05/08/2024 7:00 AM AIRPORT MAINTENANCE CHIEF From a different site than #1. Collection->Peripheral [...] performance characteristics have been verified by the [facility] Microbiology Laboratory. For questions about this culture, contact the Microbiology Laboratory at [phone]. Interpretive data was last revised on 24. Shara Yates DO LAB MICROBIOLOGY - GEN ERAL ORDERABLES Final Result AMIE RE[facility]E (ALLI) 1 [facility] Department of Laboratories [place], [place] [id number] * Blood culture Blood (05/03/2024 11:25 AM AIRPORT MAINTENANCE CHIEF) Report Final Report: No growth Comment:Testing performed by : [facility], [address] [place] [address] Blood 05/03/2024 11:2 5 AM AIRPORT MAINTENANCE CHIEF 05/03/2024 1:53 PM AIRPORT MAINTENANCE CHIEF Narrative [facility]IE [facility] (ALLI) - 05/07/2024 4:00 PM AIRPORT MAINTENANCE CHIEF Collection->Peripheral 1. ?Blood cultures are incubated for [...] performance characteristics have been verified by the [facility] Microbiology Laboratory. For questions about this culture, contact the Microbiology Laboratory at [phone]. Interpretive data was last revised on 24. Shara Yates DO LAB MICROBIOLOGY - GEN ERAL ORDERABLES Final Result Performing Organization Address City/[facility]/ZIP Co de Phone Number AMIE RE[facility]E ([place]) 1 [facility] [employer] [place] [address] * Troponin T high-sensitivity 6-hour (05/02/2024 11:01 AM AIRPORT MAINTENANCE CHIEF) Trop T hs <6 <=14 ng/L Comment: Interpretive Data For further hscTnT resources including the diagnostic algorithm and an aid in interpretation, copy and paste this link: https://nrl.testcatalog.org/show/hsTrop Current Interpretive Data last revised 2020. Trop T hs delta 0 ng/L [facility] ([place]) Trop T hs interp Insignificant [facility] ([place]) Blood 05/02/2024 11:0 1 AM AIRPORT MAINTENANCE CHIEF 05/02/2024 11:11 AM AIRPORT MAINTENANCE CHIEF us Guille Wall MD LAB BLOOD ORDERABLES Final Resu lt AMIE RE[facility]E ([place]) 1 [facility] [place] [address] * Troponin T high-sensitivity 2-hour (05/02/2024 6:37 AM AIRPORT MAINTENANCE CHIEF) Trop T hs <6 <=14 ng/L Comment: Interpretive Data For further hscTnT resources including the diagnostic algorithm and an aid in interpretation, copy and paste this link: https://nrl.testcatJulep.org/show/hsTrop Current Interpretive Data last revised 2020. Trop T hs delta 0 ng/L [facility] ([facility]) Trop T hs interp Insignificant [facility] ([place]) Blood 05/02/2024 6:37 AM AIRPORT MAINTENANCE CHIEF 05/02/2024 7:06 AM AIRPORT MAINTENANCE CHIEF Guille Wall MD LAB BLOOD ORDERABLES Final Resu lt Performing Organization Address [facility]/ZIP Co de Phone Number [facility] RE[facility] ([place]) 1 [facility] [employer] [place] [address] * Troponin T high-sensitivity series (baseline, 2hr, 4hr, 6hr) (05/02/2024 4:17 AM AIRPORT MAINTENANCE CHIEF) Trop T hs <6 <=14 ng/L Comment: Interpretive Data For further hscTnT resources including the diagnostic algorithm and an aid in interpretation, copy and paste this link: https://nrl.testcatJulep.org/show/hsTrop Current Interpretive Data last revised 2020. Blood 05/02/2024 4:17 AM AIRPORT MAINTENANCE CHIEF 05/02/2024 4:40 AM AIRPORT MAINTENANCE CHIEF Guille Wall MD LAB BLOOD ORDERABLES Final Resu lt [facility]IE [facility] ([place]) 1 [facility] [place] [address] * ECG 12 lead (05/02/2024 2:17 AM AIRPORT MAINTENANCE CHIEF) 05/02/2024 2:17 AM AIRPORT MAINTENANCE CHIEF Narrative [facility] - 05/02/2024 7:39 AM AIRPORT MAINTENANCE CHIEF Vent Rate: 73 bpm RR Interval: 816 msec MA Interval: 180 msec QRS Duration: 84 msec QT Interval: 397 msec QTC Interval: 423 msec P-R-T [place]: 40 - -21 - 31 degrees IMPRESSION: SINUS RHYTHM WITH SINUS ARRHYTHMIA BORDERLINE LEFT AXIS DEVIATION [QRS AXIS < -20] BORDERLINE ECG Electronically Signed By: Kwaku Blanco MD Guille Wall MD ECG ORDERABLES Final Result [facility] * US Abdomen Limited (05/01/2024 3:50 PM AIRPORT MAINTENANCE CHIEF) Anatomical Region Laterality Modality Abdomen N/A Ultrasound 05/01/2024 5:06 PM AIRPORT MAINTENANCE CHIEF Narrative 05/01/2024 5:08 PM AIRPORT MAINTENANCE CHIEF EXAM DESCRIPTION: ?? US ABDOMEN LIMITED REASON [...] PM T: ??05/01/2024 5:08 PM Report ID: [id number] Reading Location: ??[id number] Procedure Note Boyd Caldwell MD - 05/01/2024 [...] Boyd Caldwell M.D. KT: KT Report ID: [id number] Reading Location: [place] [address] [facility] DO IMG US PROCEDURES Maeve l Result * aPTT (05/01/2024 2:50 PM AIRPORT MAINTENANCE CHIEF) aPTT 34 28 - 38 sec [facility] ([place]) Comment: Interpretive Data Heparin therapeutic range: 66.0 - 100.0 seconds. Range based on correlation with therapeutic heparin activity range of 0.3 - 0.7 Units/mL. Current interpretive data was last revised on 2023. Blood 05/01/2024 2:50 PM AIRPORT MAINTENANCE CHIEF 05/01/2024 3:05 PM AIRPORT MAINTENANCE CHIEF [facility] LAB BLOOD ORDERABLES F inal Result AMIE [facility] ([place]) 1 [facility] Department of Laboratories [place] [phone] * (ABNORMAL) Protime-INR (05/01/2024 2:50 PM AIRPORT MAINTENANCE CHIEF) PT 14.9(H) 9.7 - 13.0 sec [facility] ([place]) INR 1.37(H) 0.90 - 1.20 [facility] ([place]) Comment: Interpretive data Oral anticoagulant therapeutic ranges: Venous thromboembolism prophylaxis or treatment: 2.0-3.0 CARDIOLOGY Standard range: 2.0-3.0 High-intensity range: 2.5-3.5 Refer to indication-specific guidelines for appropriate target ranges for prosthetic heart valve replacement. Current interpretive data was last revised on 2019. Blood 05/01/2024 2:50 PM AIRPORT MAINTENANCE CHIEF 05/01/2024 3:05 PM AIRPORT MAINTENANCE CHIEF [facility] DO LAB BLOOD ORDERABLES F inal Result AMIE RENAE (ALLI) 1 [facility] Department [place] [address] * (ABNORMAL) Urinalysis reflex to microscopic and culture Urine (05/01/2024 10:44 AM AIRPORT MAINTENANCE CHIEF) Color, ur Yellow Yellow Clarity, ur Clear [...] tendency for uric acid stone formation. Source: [facility] [employer] Current Interpretive Data was last revised on [...] [facility] (ALLI) Urine 05/01/2024 10:4 4 AM AIRPORT MAINTENANCE CHIEF 05/01/2024 10:50 AM AIRPORT MAINTENANCE CHIEF us Shara Yates DO LAB MICROBIOLOGY - GEN ERAL ORDERABLES Final Result [facility]IE RE[facility]E ([place]I) 1 [facility] Department [place] [address] * (ABNORMAL) Urinalysis, microscopic only (05/01/2024 10:44 AM AIRPORT MAINTENANCE CHIEF) WBC, ur 0-5 0 - 5 /HPF RBC, ur 0-2 0 - 2 /HPF [facility] (ALLI) Epithelial cells, squamous, ur 11-20(A) 0 - 5 /HPF [facility] (ALLI) Bacteria, ur Trace(A) [facility] ([facility]) Mucous, ur Present(A) [facility] ([place]) Culture Reflex Comment Reflex conditions for urine culture (WBC >10) not met. [facility] (ALLI) Urine 05/01/2024 10:4 4 AM AIRPORT MAINTENANCE CHIEF 05/01/2024 10:50 AM AIRPORT MAINTENANCE CHIEF us Shara Yates DO LAB URINE ORDERABLES F inal Result [facility] (ALLI) 1 [facility] Department [place] [address] * Respiratory pathogen panel Nasopharyngeal (05/01/2024 10:04 AM AIRPORT MAINTENANCE CHIEF) Pathologist [facility] Influenza A RNA Not Detected Not Detected CH Comment:Testing performed by : [address] [address] Influenza B RNA Not Detected Not Detected [facility] (ALLI) Comment:Testing performed by : [address] [address] RSV RNA Not Detected Not Detected [facility] (ALLI) Comment:Testing performed by : [address] [address] COVID-19 RNA Not Detected Not Detected [facility] (ALLI) Comment:Testing performed by : [address] [address] Coronavirus 229E RNA Not Detected Not Detected [facility] (ALLI) Comment:Testing performed by : [address] [address] Coronavirus HKU1 RNA Not Detected Not Detected [facility] (ALLI) Comment:Testing performed by : [address] [address] Coronavirus NL63 RNA Not Detected Not Detected [facility] (ALLI) Comment:Testing performed by : [address] [address] Coronavirus OC43 RNA Not Detected Not Detected [facility] ([facility]) Comment:Testing performed by : [facility], [address] [place] [address], [address] Adenovirus DNA Not Detected Not Detected [facility] ([facility]) Comment:Testing performed by : [facility], [address] [place] [address], [address] Metapneumovirus RNA Not Detected Not Detected [facility] ([facility]) Comment:Testing performed by : [facility], [address] [place] [address]., [address] Rhinovirus/Enterov irus RNA Not Detected Not Detected [facility] ([facility]) Comment:Testing performed by : [facility], [address] [place] [address], [address] Parainfluenza 1 RNA Not Detected Not Detected [facility] ([facility]) Comment:Testing performed by : [facility], [address] [place] [address], [address] Parainfluenza 2 RNA Not Detected Not Detected [facility] ([facility]I) Comment:Testing performed by : [facility], [address] [place] [address], [address] Parainfluenza 3 RNA Not Detected Not Detected [facility] ([facility]) Comment:Testing performed by : [facility], [address] [place] [address], [address] Parainfluenza 4 RNA Not Detected Not Detected [facility] ([facility]I) Comment:Testing performed by : [facility], [address] [place] [address], [address] B. pertussis DNA Not Detected Not Detected [facility] ([facility]) Comment:Testing performed by : [facility], [address] [place] [address], [address] B. parapertussis DNA Not Detected Not Detected [facility] ([facility]) Comment:Testing performed by : [facility], [address] [place] [address], [address] C. pneumoniae DNA Not Detected Not Detected [facility] ([facility]I) Comment:Testing performed by : [facility], [address] [place] [address], [address] M. pneumoniae DNA Not Detected Not Detected [facility] ([facility]I) Comment: Interpretive Data [employer] Film[employer] Respiratory Panel (RP2.1) assay is a [...] assay has FDA clearance for testing of SHREDDING MACHINE KNIFE CHANGER swabs. ??The performance characteristics of this assay have been determined by [facility]. Current interpretive data was last revised on 2020. Testing performed by: [facility], [address] [place] [address], [place]., [address] Nasopharyngeal 05/01/2024 10 :04 AM AIRPORT MAINTENANCE CHIEF 05/01/2024 11:23 AM AIRPORT MAINTENANCE CHIEF Narrative [facility] (ALLI) - 05/01/2024 12:24 PM AIRPORT MAINTENANCE CHIEF Is the Patient experiencing symptoms consistent with COVID?->Yes Surveillance testing for transplant patient?->No Shara Yates DO LAB MICROBIOLOGY - GEN ERAL ORDERABLES Final Result [facility] RE[facility] ([place]I) 1 [facility] Department [place] [address] CH * XR CHEST 1 VIEW PORTABLE (05/01/2024 9:53 AM AIRPORT MAINTENANCE CHIEF) Anatomical Region Laterality Modality Body, Chest N/A Computed Radiogr aphy 05/01/2024 12:2 9 PM AIRPORT MAINTENANCE CHIEF Narrative 05/01/2024 12:30 PM AIRPORT MAINTENANCE CHIEF EXAM DESCRIPTION: ?? XR CHEST 1 VIEW [...] PM T: ??05/01/2024 12:30 PM Report ID: [id number] Reading Location: ??[id number] Procedure Note Dong Thorne MD - 05/01/2024 [...] Dong Thorne M.D. RB: ADALID Report ID: [id number] Reading Location: [id number] Shara Zach Yates DO IMG XR PROCEDURES Maeve l Result * Lactate (05/01/2024 8:52 AM AIRPORT MAINTENANCE CHIEF) Pathologist [facility] Lactate 1.3 0.7 - 2.0 mmol/L Blood 05/01/2024 8:52 AM AIRPORT MAINTENANCE CHIEF 05/01/2024 9:01 AM AIRPORT MAINTENANCE CHIEF Shara Serrano Suzy DO LAB BLOOD ORDERABLES F inal Result Performing Organization Address City/State/[facility] Co de Phone Number [facility] [place]) [address] [facility] [place] [address] * eGFR (05/01/2024 8:52 AM AIRPORT MAINTENANCE CHIEF) eGFR >90 >=60 mL/min/1. 73 m2 Comment: [...] last reviewed 2021. Blood 05/01/2024 8:52 AM AIRPORT MAINTENANCE CHIEF 05/01/2024 9:40 AM AIRPORT MAINTENANCE CHIEF Shara Serrano Suzy DO LAB BLOOD ORDERABLES F inal Result [facility] ([place]) 1 [facility] [place] [address] * (ABNORMAL) CBC without differential (05/01/2024 8:52 AM AIRPORT MAINTENANCE CHIEF) WBC 6.4 3.8 - 9.9 K/cumm Hgb [...] [facility] ([facility]I) Blood 05/01/2024 8:52 AM AIRPORT MAINTENANCE CHIEF 05/01/2024 9:40 AM AIRPORT MAINTENANCE CHIEF us Shara Yates DO LAB BLOOD ORDERABLES F inal Result [facility] ([facility]I) 1 [facility] [place] [address] * (ABNORMAL) Comprehensive metabolic panel (05/01/2024 8:52 AM AIRPORT MAINTENANCE CHIEF) Sodium 132(L) 135 - 145 mmol/L Potassium, [...] [facility] ([facility]) Blood 05/01/2024 8:52 AM AIRPORT MAINTENANCE CHIEF 05/01/2024 9:40 AM AIRPORT MAINTENANCE CHIEF Shara Serrano [facility] DO LAB BLOOD ORDERABLES F inal Result [facility]IE [facility] (ALLI) 1 [facility] [place] [address] * (ABNORMAL) Blood culture Blood (04/30/2024 8:47 PM AIRPORT MAINTENANCE CHIEF) Direct Specimen Exam Molecular Analysis: Methicillin-suscep tible Staphylococcus aureus (MSSA) detected by the maxx eP[facility] BCID-GP panel. This test does not exclude the possibility of a mixed bacterial infection. Notification of: Methicillin-suscep tible Staphylococcus aureus (MSSA) called to and read back by: Latrice Wellington MLS ([phone]) on 05/02/2024 01:41:52 by: Fritz Kebede MLS Comment:Testing performed by : [facility], [address] [place] [address]., [id number] Direct Specimen Exam Stain: Gram Positive Cocci in clusters Time to culture positivity (anaerobic media): 22.7 hours Notification of: Gram Positive Cocci in clusters called to and read back by: Latrice Wellington MLS ([phone]) on 05/01/2024 23:41:23 by: Fritz Kebede MLS Test result called to and read back by fabio stephenson on 05/02/2024 00:23:23 by latrice RENAE (ALLI) Comment:Testing performed by : [facility], [address] [place] [address]., [id number] Report Final Report: Staphylococcus aureus Methicillin susceptible (MSSA) by penicillin binding protein 2a (PBP2a) testing. (.) [facility] (ALLI) Comment:Testing performed by : [facility], [address] [facility], [place]., [address] Organism STAPHYLOCOCCUS AUREUS [facility] ([facility]I) Blood 04/30/2024 8:47 PM AIRPORT MAINTENANCE CHIEF 05/01/2024 Kris HOLLOWAY [facility] (ALLI) - 05/06/2024 1:15 PM AIRPORT MAINTENANCE CHIEF From a different site than #1. Collection->Peripheral [...] performance characteristics have been verified by the [facility] Microbiology Laboratory. For questions about this culture, contact the Microbiology Laboratory at [phone]. Interpretive data was last revised on 24. [...] Wall MD LAB MICROBIOLOGY - GENERAL [facility] Final Result Performing Organization Address City/[facility]/ZIP Co de Phone Number AMIE RENAE (ALLI) 1 [facility] Department [place] [address] * Blood culture Blood (04/30/2024 8:47 PM AIRPORT MAINTENANCE CHIEF) Report Final Report: No growth Comment:Testing performed by : [facility], [address] [place]., [address] Blood 04/30/2024 8:47 PM AIRPORT MAINTENANCE CHIEF 05/01/2024 Narrative AMIE RE[facility]E (ALLI) - 05/05/2024 7:00 AM AIRPORT MAINTENANCE CHIEF Collection->Peripheral 1. ?Blood cultures are incubated for [...] performance characteristics have been verified by the [facility] Microbiology Laboratory. For questions about this culture, contact the Microbiology Laboratory at [phone]. Interpretive data was last revised on 24. Guille Wall MD LAB MICROBIOLOGY - GENERAL LINDEN LARSEN Final Result Performing Organization Address [facility]/ZIP Co de Phone Number AMIE [facility] (ALLI) 1 [facility] Department [place] [address] * MRI Lumbar Spine WO Contrast (04/30/2024 2:26 PM AIRPORT MAINTENANCE CHIEF) Anatomical Region Laterality Modality Spine N/A Magnetic Resonan ce 04/30/2024 4:06 PM AIRPORT MAINTENANCE CHIEF Narrative 04/30/2024 4:12 PM AIRPORT MAINTENANCE CHIEF EXAM DESCRIPTION: ?? MRI LUMBAR SPINE WO [...] PM T: ??04/30/2024 4:12 PM Report ID: [id number] Reading Location: ??[id number] Procedure Note Bo Travis MD - 04/30/2024 [...] Relevant portions of CT abdomen pelvis with tprfmost14/19/2025. FINDINGS: SEGMENTATION: No lumbosacral transitional anatomy. The [...] Bo Travis M.D. DORIS: DORIS Report ID: [id number] Reading Location: [place] [address] us Zee Khna MD IMG MRI PROCEDURES Final Result * CT Abdomen Pelvis W Contrast (04/29/2024 9:22 AM AIRPORT MAINTENANCE CHIEF) Anatomical Region Laterality Modality Body N/A Computed Tomogra phy 04/29/2024 12:5 1 PM AIRPORT MAINTENANCE CHIEF Narrative 04/29/2024 12:58 PM AIRPORT MAINTENANCE CHIEF EXAM DESCRIPTION: ?? CT ABDOMEN PELVIS W [...] PM T: ??04/29/2024 12:58 PM Report ID: [id number] Reading Location: ??[id number] Procedure Note Dave Chaudhry MD - 04/29/2024 [...] Alphonso Chaudhry M.D. DORIS: DORIS Report ID: [id number] Reading Location: [id number] us Zee Khan MD IMG CT PROCEDURES Final Result * eGFR (04/29/2024 4:53 AM AIRPORT MAINTENANCE CHIEF) eGFR >90 >=60 mL/min/1. 73 m2 Comment: [...] last reviewed 2021. Blood 04/29/2024 4:53 AM AIRPORT MAINTENANCE CHIEF 04/29/2024 5:18 AM AIRPORT MAINTENANCE CHIEF us Zee Khan MD LAB BLOOD ORDERABLES Fin al Result [facility] ([place]) 1 [facility] Department [place] [address] * Differential, auto (04/29/2024 4:53 AM AIRPORT MAINTENANCE CHIEF) Neutrophil abs 2.2 1.5 - 6.5 K/cumm Imm gran abs 0.0 0.0 - 0.1 K/cumm [facility] ([place]) Lymphocyte abs 1.4 0.8 - 3.3 K/cumm [facility] ([place]) Monocyte abs 0.6 0.2 - 0.8 K/cumm [facility] ([place]) Eosinophil abs 0.2 0.0 - 0.5 K/cumm [facility] ([place]) Basophil abs 0.0 0.0 - 0.1 K/cumm [facility] ([place]) Neutrophil pct 49.5 % [facility] [...] revised on 2017. Blood 04/29/2024 4:53 AM AIRPORT MAINTENANCE CHIEF 04/29/2024 5:17 AM AIRPORT MAINTENANCE CHIEF us Zee Khan MD LAB BLOOD ORDERABLES Fin al Result AMIE RE[facility] (ALLI) 1 [facility] Department [place] [address] * (ABNORMAL) CBC with auto differential (04/29/2024 4:53 AM AIRPORT MAINTENANCE CHIEF) WBC 4.4 3.8 - 9.9 K/cumm Hgb [...] [facility] ([facility]) Blood 04/29/2024 4:53 AM AIRPORT MAINTENANCE CHIEF 04/29/2024 5:17 AM AIRPORT MAINTENANCE CHIEF Zee Khan MD LAB BLOOD ORDERABLES Fin al Result AMIE [facility] (ALLI) 1 [facility] [employer] [place] [place] [address] * (ABNORMAL) Phosphorus (04/29/2024 4:53 AM AIRPORT MAINTENANCE CHIEF) Phosphorus, pl 4.6(H) 2.3 - 4.5 mg/dL Blood 04/29/2024 4:53 AM AIRPORT MAINTENANCE CHIEF 04/29/2024 5:18 AM AIRPORT MAINTENANCE CHIEF Zee Khan MD LAB BLOOD ORDERABLES Fin al Result AMIE [facility] (ALLI) 1 [facility] [employer] [place] [place] [address] * Magnesium (04/29/2024 4:53 AM AIRPORT MAINTENANCE CHIEF) Magnesium 1.6 1.4 - 2.5 mg/dL Blood 04/29/2024 4:53 AM AIRPORT MAINTENANCE CHIEF 04/29/2024 5:18 AM AIRPORT MAINTENANCE CHIEF Zee Khan MD LAB BLOOD ORDERABLES Fin al Result Performing Organization Address [facility] Co de Phone Number [facility] (ALLI) [address] [place] [address] [place] [address] * Hepatic function panel (04/29/2024 4:53 AM AIRPORT MAINTENANCE CHIEF) [facility] Bilirubin, total 0.3 0.1 - 1.2 mg/dL Bilirubin, direct 0.1 0.1 - 0.3 mg/dL [facility] ([facility]) Protein, pl 6.9 6.5 - 8.5 g/dL [facility] Albumin 3.6 3.5 - 5.0 g/dL [facility] Alk phos 89 40 - 130 Units/L [facility] ([facility]) ALT 16 7 - 45 Units/L [facility] ([facility]) AST 27 10 - 45 Units/L [facility] Blood 04/29/2024 4:53 AM AIRPORT MAINTENANCE CHIEF 04/29/2024 5:18 AM AIRPORT MAINTENANCE CHIEF Zee Khan MD LAB BLOOD ORDERABLES Fin al Result Performing Organization Address [facility] Co de Phone Number [facility] (ALLI) [address] [place] [address] [place] [address] * Basic metabolic panel (04/29/2024 4:53 AM AIRPORT MAINTENANCE CHIEF) Pathologist [facility] Sodium 139 135 - 145 mmol/L Potassium, pl 3.8 3.3 - 4.9 mmol/L [facility] ([facility]) Chloride 104 97 - 110 mmol/L [facility] ([facility]) CO2 25 22 - 32 mmol/L [facility] ([facility]) Anion gap 10 2 - 15 mmol/L [facility] BUN 23 6 - 25 mg/dL [facility] ([facility]I) Creatinine 0.61 0.60 - 1.10 mg/dL [facility] ([facility]I) Glucose 85 70 - 199 mg/dL [facility] (ALLI) Comment: Interpretive Data Fasting glucose [...] Calcium 9.1 8.5 - 10.3 mg/dL [facility] (ALLI) Blood 04/29/2024 4:53 AM AIRPORT MAINTENANCE CHIEF 04/29/2024 5:18 AM AIRPORT MAINTENANCE CHIEF Zee Khan MD LAB BLOOD ORDERABLES Fin al Result Performing Organization Address [facility] Co de Phone Number [facility] ([place]) 1 [facility] [place] [place] [address] * Lipase (04/28/2024 1:16 PM AIRPORT MAINTENANCE CHIEF) Lipase 90 10 - 99 Units/L Blood 04/28/2024 1:16 PM AIRPORT MAINTENANCE CHIEF 04/28/2024 1:47 PM AIRPORT MAINTENANCE CHIEF Zee Khan MD LAB BLOOD ORDERABLES Fin al Result Performing Organization Address [facility] Co de Phone Number [facility] 1 [facility] [place] [address] * Hepatic function panel (04/28/2024 1:16 PM AIRPORT MAINTENANCE CHIEF) Bilirubin, total 0.3 0.1 - 1.2 mg/dL Bilirubin, direct <0.1 0.1 - 0.3 mg/dL [facility] (ALLI) Comment: Hemolysis present. ??Results may be affected. Moderately Hemolyzed Specimen Protein, pl 7.0 6.5 - 8.5 g/dL [facility] ([facility]I) Albumin 3.6 3.5 - 5.0 g/dL [facility] ([facility]) Alk phos 77 40 - 130 Units/L [facility] ([facility]) ALT 18 7 - 45 Units/L [facility] ([facility]I) Comment: Hemolysis present. ??Results may be affected. Moderately Hemolyzed Specimen AST 35 10 - 45 Units/L [facility] (ALLI) Comment: Hemolysis present. ??Results may be affected. Moderately Hemolyzed Specimen Blood 04/28/2024 1:16 PM AIRPORT MAINTENANCE CHIEF 04/28/2024 2:18 PM AIRPORT MAINTENANCE CHIEF us Zee Khan MD LAB BLOOD ORDERABLES Fin al Result [facility] ([place]) 1 [facility] Department [place] [address] * eGFR (04/26/2024 8:41 AM AIRPORT MAINTENANCE CHIEF) eGFR >90 >=60 mL/min/1. 73 m2 Comment: [...] last reviewed 2021. Blood 04/26/2024 8:41 AM AIRPORT MAINTENANCE CHIEF 04/26/2024 8:57 AM AIRPORT MAINTENANCE CHIEF us Maddie White MD LAB BLOOD ORDERABLES Maeve lopez Result [facility] (ALLI) 1 [facility] Department [place] [address] * (ABNORMAL) CBC without differential (04/26/2024 8:41 AM AIRPORT MAINTENANCE CHIEF) WBC 6.4 3.8 - 9.9 K/cumm Hgb [...] [facility] ([facility]) Blood 04/26/2024 8:41 AM AIRPORT MAINTENANCE CHIEF 04/26/2024 8:57 AM AIRPORT MAINTENANCE CHIEF us Maddie White MD LAB BLOOD ORDERABLES Maeve lopez Result [facility] 1 [facility] Department [place] [address] * Comprehensive metabolic panel (04/26/2024 8:41 AM AIRPORT MAINTENANCE CHIEF) Sodium 138 135 - 145 mmol/L Potassium, [...] [facility] ([facility]I) Blood 04/26/2024 8:41 AM AIRPORT MAINTENANCE CHIEF 04/26/2024 8:57 AM AIRPORT MAINTENANCE CHIEF us Maddie White MD LAB BLOOD ORDERABLES Maeve l Result [facility]IE [facility] ([place]) 1 [facility] [place] [address] * eGFR (04/25/2024 8:53 AM AIRPORT MAINTENANCE CHIEF) eGFR >90 >=60 mL/min/1. 73 m2 Comment: [...] last reviewed 2021. Blood 04/25/2024 8:53 AM AIRPORT MAINTENANCE CHIEF 04/25/2024 8:55 AM AIRPORT MAINTENANCE CHIEF us Chang Mckeon MD LAB BLOOD ORDERABLE S Final Result [facility] ([place]) 1 [facility] [place] [place] [address] * (ABNORMAL) Differential, auto (04/25/2024 8:53 AM AIRPORT MAINTENANCE CHIEF) Neutrophil abs 6.3 1.5 - 6.5 K/cumm [...] revised on 2017. Blood 04/25/2024 8:53 AM AIRPORT MAINTENANCE CHIEF 04/25/2024 8:55 AM AIRPORT MAINTENANCE CHIEF us Chang Mckeon MD LAB BLOOD ORDERABLE S Final Result [facility] ([facility]) 1 [facility] [employer] [place] [address] * (ABNORMAL) CBC with auto differential (04/25/2024 8:53 AM AIRPORT MAINTENANCE CHIEF) WBC 7.4 3.8 - 9.9 K/cumm Hgb [...] [facility] ([facility]) Blood 04/25/2024 8:53 AM AIRPORT MAINTENANCE CHIEF 04/25/2024 8:55 AM AIRPORT MAINTENANCE CHIEF us Chang Mckeon MD LAB BLOOD ORDERABLE S Final Result [facility] (ALLI) [address] [facility] [place] [address] * aPTT (04/25/2024 8:53 AM AIRPORT MAINTENANCE CHIEF) aPTT 29 28 - 38 sec [facility] ([place]) Comment: Interpretive Data Heparin therapeutic range: 66.0 - 100.0 seconds. Range based on correlation with therapeutic heparin activity range of 0.3 - 0.7 Units/mL. Current interpretive data was last revised on 2023. Blood 04/25/2024 8:53 AM AIRPORT MAINTENANCE CHIEF 04/25/2024 5:58 PM AIRPORT MAINTENANCE CHIEF Maddie White MD LAB BLOOD ORDERABLES Maeve l Result [facility] ([place]) 1 [facility] [employer] [place] [address] * Protime-INR (04/25/2024 8:53 AM AIRPORT MAINTENANCE CHIEF) PT 11.5 9.7 - 13.0 sec [facility] ([place]) INR 1.06 0.90 - 1.20 [facility] ([place]) Comment: Interpretive data Oral anticoagulant therapeutic ranges: Venous thromboembolism prophylaxis or treatment: 2.0-3.0 CARDIOLOGY Standard range: 2.0-3.0 High-intensity range: 2.5-3.5 Refer to indication-specific guidelines for appropriate target ranges for prosthetic heart valve replacement. Current interpretive data was last revised on 2019. Blood 04/25/2024 8:53 AM AIRPORT MAINTENANCE CHIEF 04/25/2024 5:58 PM AIRPORT MAINTENANCE CHIEF Maddie White MD LAB BLOOD ORDERABLES Maeve l Result [facility] ([place] 1 [facility] [place] [place] [address] * Magnesium (04/25/2024 8:53 AM AIRPORT MAINTENANCE CHIEF) Magnesium 1.4 1.4 - 2.5 mg/dL Blood 04/25/2024 8:53 AM AIRPORT MAINTENANCE CHIEF 04/25/2024 9:56 AM AIRPORT MAINTENANCE CHIEF Chang Mckeon MD LAB BLOOD ORDERABLE S Final Result Performing Organization Address [facility]/ZIP Co de Phone Number [facility] (ALLI) [address] [facility] [place] [employer] [place] [address] * (ABNORMAL) Ethanol (04/25/2024 8:53 AM AIRPORT MAINTENANCE CHIEF) Ethanol 59(H) <=10 mg/dL Comment: Interpretive Data Legal limit of intoxication > or = 80 mg/dL Levels > or = 400 mg/dL are potentially TOXIC. Current interpretive data was last revised on 2018. Blood 04/25/2024 8:53 AM AIRPORT MAINTENANCE CHIEF 04/25/2024 8:55 AM AIRPORT MAINTENANCE CHIEF Chang Mckeon MD LAB BLOOD ORDERABLE S Final Result Performing Organization Address [facility] Co de Phone Number [facility] (ALLI) [address] [facility] [place] [employer] [place] [address] * (ABNORMAL) Comprehensive metabolic panel (04/25/2024 8:53 AM AIRPORT MAINTENANCE CHIEF) Pathologist [facility] Sodium 134(L) 135 - 145 mmol/L Potassium, pl 3.5 3.3 - 4.9 mmol/L [facility] (ALLI) Chloride 99 97 - 110 mmol/L [facility] (ALLI) CO2 21(L) 22 - 32 mmol/L [facility] (ALLI) Anion gap 14 2 - 15 mmol/L [facility] ([facility]) BUN 13 6 - 25 mg/dL [facility] ([facility]) Creatinine 0.48(L) 0.60 - 1.10 mg/dL [facility] ([facility]I) Glucose 141 70 - 199 mg/dL [facility] (ALLI) Comment: Interpretive Data Fasting glucose [...] Hemolyzed S pecimen Blood 04/25/2024 8:53 AM AIRPORT MAINTENANCE CHIEF 04/25/2024 8:55 AM AIRPORT MAINTENANCE CHIEF us Chang Mckeon MD LAB BLOOD ORDERABLE S Final Result [facility] (ALLI) 1 [facility] Department of Laboratories [place], [place] [id number] * eGFR (04/25/2024 8:33 AM AIRPORT MAINTENANCE CHIEF) eGFR >90 >=60 mL/min/1. 73 m2 Comment: [...] last reviewed 2021. Blood 04/25/2024 8:33 AM AIRPORT MAINTENANCE CHIEF 04/25/2024 8:41 AM AIRPORT MAINTENANCE CHIEF us Jesenia Mckeon MD LAB BLOOD ORDERABLES Final Re sult [facility] ([place]) 1 [facility] [place] [address] * (ABNORMAL) Drugs of Abuse Screen, Urine without Confirmation (04/25/2024 8:33 AM AIRPORT MAINTENANCE CHIEF) Amphetamine, ur Screen Positive, presumptive (A) CutOff [...] revised on 2017. Urine 04/25/2024 8:33 AM AIRPORT MAINTENANCE CHIEF 04/25/2024 8:43 AM AIRPORT MAINTENANCE CHIEF Narrative [facility] ([facility]) - 04/25/2024 9:03 AM AIRPORT MAINTENANCE CHIEF Drug of Abuse screening is performed by immunoassay for medical purposes only. ??This is not to be used for Pain Management purposes. Jesenia Mckeon MD LAB URINE ORDERABLES Final Re sult [facility] (ALLI) 1 [facility] [place] [address] * (ABNORMAL) CBC without differential (04/25/2024 8:33 AM AIRPORT MAINTENANCE CHIEF) WBC 7.3 3.8 - 9.9 K/cumm Hgb [...] RDW SD 42.5 35.7 - 48.1 fL [facility] ([facility] NRBC abs 0.00 0.00 - 0.01 K/cumm [facility] (ALLI) Blood 04/25/2024 8:33 AM AIRPORT MAINTENANCE CHIEF 04/25/2024 8:41 AM AIRPORT MAINTENANCE CHIEF us Jesenia Mckeon MD LAB BLOOD ORDERABLES Final Re sult [facility] (ALLI) 1 [facility] [place] [address] * (ABNORMAL) Comprehensive metabolic panel (04/25/2024 8:33 AM AIRPORT MAINTENANCE CHIEF) Sodium 135 135 - 145 mmol/L Potassium, pl 3.4 3.3 - 4.9 mmol/L [facility] ([facility]I) Chloride 101 97 - 110 mmol/L [facility] ([facility] CO2 19(L) 22 - 32 mmol/L [facility] ([facility] Anion gap 15 2 - 15 mmol/L [facility] ([facility]) BUN 13 6 - 25 mg/dL [facility] ([facility]I) Creatinine 0.47(L) 0.60 - 1.10 mg/dL [facility] ([facility]I) Glucose 156 70 - 199 mg/dL [facility] ([facility] Comment: Interpretive Data Fasting glucose [...] Hemolyzed S pecimen Blood 04/25/2024 8:33 AM AIRPORT MAINTENANCE CHIEF 04/25/2024 8:41 AM AIRPORT MAINTENANCE CHIEF us Jesenia Mckeon MD LAB BLOOD ORDERABLES Final Re sult [facility] ([place]) 1 [facility] [place] [address] from Last 3 Months Insurance [employer] BETTER [facility] [place] Advance Directives For more information, please contact: [phone] * Full Code (Latest Code Status on File) Date Activated Date Inactivated Comments 04/25/2024 5:41 PM 05/07/2024 7:44 PM Care Teams [employer] Installer Relationship Specialty Start Date End Date Bladimir Crowder MD [address] [place] [id number] PCP - General Family Medicine 04/25/24
--- NOTE | 2024-05-12 06:05 | ED.WOUNDLAC ---
HPI - Wound/Laceration General Chief Complaint: Wound/Laceration Stated Complaint: unspecified Time Seen by Provider: 05/12/24 05:38 Source: patient Mode of arrival: ambulatory Limitations: no limitations History of Present Illness HPI narrative: Patient is a 48-year-old female with right upper extremity IV site prior infection here for concerns of a hard nodule type feeling in the area. Patient was in the hospital last month for 2 weeks and was given IV antibiotics for the IV site infection of Staph JESUS per her history. She is now having a little bit of tenderness and a hard nodular line with slight redness locally. Onset (ago): week(s) (1) Location: other ( Right upper extremity) Place: home Context: sharp object use ( hospitalization IV site) Associated symptoms: pain Treatments prior to arrival: bandage Related Data Home Medications ?Medication ?Instructions ?Recorded ?Confirmed ?Last Taken ?Type gabapentin 300 mg capsule 400 mg PO TID 02/03/24 02/26/24 Unknown History Zoloft 5 mg DAILY 02/26/24 02/26/24 Unknown History nabumetone 500 mg TID 02/26/24 02/26/24 Unknown History Allergies Allergy/AdvReac Type Severity Reaction Status Date / Time No Known Allergies Allergy Verified 05/12/24 05:23 Review of Systems Review of Systems: All systems reviewed & are unremarkable except as noted in HPI and below Constitutional: Constitutional: Reports no additional constitutional complaints Eyes: Eyes: Reports no additional eye complaints ENT: Reports system reviewed and no additional complaints, except as documented Cardiovascular: Cardiovascular: Reports no additional cardiovascular complaints Respiratory: Respiratory: Reports no additional respiratory complaints Gastrointestinal: Gastrointestinal: Reports no additional gastrointestinal complaints Genitourinary: Genitourinary: Reports no additional female genitourinary complaints Musculoskeletal: Musculoskeletal: Reports no additional musculoskeletal complaints Integumentary/Breasts: Skin/Breast: Reports system reviewed and no additional complaints, except as docu Neurologic: Reports system reviewed and no additional complaints, except as documented Psychiatric: Psychiatric: Reports no additional psychiatric complaints Endocrine: Endocrine: Reports no additional endocrine complaints Hematologic/Lymphatic: Hematologic/Lymphatic: Reports no additional hematologic/lymphatic complaints Allergic/Immunologic: Allergic/Immunologic: Reports no additional allergic/immunologic complaints PMFSH Past Medical History Medical History Hypertension ETOH abuse Social History Social History Smoking status: Never smoker Second hand tobacco smoke exposure: No Alcohol intake: current Drinks per week: 30 Substance use: current Substance use type: marijuana Other substance usage details: Last drink was at 6am this morning Do You Feel Safe in your Home?: No Lack of Transportation: YES Lack of Food: Sometimes True Current Housing: I Do Not Have Housing Concerned About Future Housing: YES Difficulty Paying Gas/Electric Bills: YES Difficulty Paying for Meds: YES Currently Unemployed: YES Education: High School Diploma/GED Difficulty w/ Childcare or Family Care: No Spiritual care concerns: No Exam Const: General: healthy appearing Nutritional Appearance: well nourished Orientation/consciousness: patient oriented x3 HENMT: Head: normal to inspection Ears: external ears normal Face/Nose/Sinus: Normal external nose present Eyes: Conjunctivae: conjunctivae normal Pupils: Equal, round and reactive pupils present EOM: EOMs intact bilaterally Neck: Neck: normal visual inspection Chest: Chest palpation & inspection: normal inspection of the chest Resp: Effort & Inspection: normal respiratory effort and not labored Auscultation: clear to auscultation bilaterally and no crackles Cardio: Rate: regular rate Rhythm: regular rhythm Heart sounds: no murmurs GI: Inspection: non-distended GI Palp: Yes Soft to palpation and No Tenderness to palpation present (GI) Auscultation: normal bowel sounds Back/Spine/Pelvis: Back: no CVA tenderness Skin: General skin exam: normal color Rashes: no rashes Wounds: wound noted Other: right upper extremity at the AC area has a hard small linear venous type structure with tenderness and localized erythema; no definite cellulitis at this time and no drainage or abscess Neuro: General: patient oriented x3 Cranial nerves: Yes Nystagmus not present Speech: normal speech Extrem: General: normal to inspection Psych: Mental Status: mental status grossly normal Affect: normal affect Attitude: cooperative Course Vital Signs Vital signs: Vital Signs Temperature 36.3 C L 05/12/24 05:11 Pulse Rate 72 05/12/24 05:11 Respiratory Rate 18 05/12/24 05:11 Blood Pressure 151/101 H 05/12/24 05:11 Pulse Oximetry 99 05/12/24 05:11 Oxygen Delivery Room Air 05/12/24 05:11 Temperature 36.3 C L 05/12/24 05:11 Pulse Rate 72 05/12/24 05:11 Respiratory Rate 18 05/12/24 05:11 Blood Pressure 151/101 H 05/12/24 05:11 Pulse Oximetry 99 05/12/24 05:11 Oxygen Delivery Room Air 05/12/24 05:11 MDM - Wound/Laceration MDM Narrative Medical decision making narrative: patient is a 48-year-old female with a right upper extremity AC prior IV site concern status post infection. We will get an ultrasound for DVT rule out on Tuesday for this patient and check labs. Lab Data Attestation: I reviewed the patient's lab results. 05/12/24 05:59 05/12/24 05:59 Labs: Lab Results 05/12/24 Range/Units 05:59 WBC 4.1 L (4.8-10.8) K/mm3 RBC 3.96 L (4.20-5.40) M/mm3 Hgb 12.5 (12.0-15.0) g/dL Hct 38.9 (35.0-49.0) % MCV 98.2 (78.0-102.0) fL MCH 31.6 H (27.0-31.0) pg MCHC 32.1 (32-36) g/dL RDW 13.3 (11.6-14.4) % Plt Count 161 (150-420) K/mm3 MPV 9.6 (9.2-11.8) fl Immature Gran % (Auto) 0.5 H (0.0-0.0) % Neut % (Auto) 48.7 L (50.0-70.0) % Lymph % (Auto) 35.0 (18.0-42.0) % [place] % (Auto) 11.7 H (2.0-11.0) % Eos % (Auto) 3.4 (1.0-6.0) % Baso % (Auto) 0.7 (0.0-1.0) % Lymph # (Auto) 1.44 (1.10-4.50) K/mm3 [place] # (Auto) 0.48 (0.10-0.90) K/mm3 Eos # (Auto) 0.14 (0.02-0.50) K/mm3 Baso # (Auto) 0.03 (0.00-0.10) K/mm3 Abs Immat Gran (auto) 0.02 H (0.00-0.00) K/mm3 Absolute Neuts (auto) 2.01 (1.70-7.20) K/mm3 Absolute Nucleated RBC 0.00 (0.00-0.00) K/mm3 Nucleated RBC % 0.0 (0-0.0) % Sodium 142 (136-145) mmol/L Potassium 3.7 (3.5-5.1) mmol/L Chloride 105 (98-108) mmol/L Carbon Dioxide 26 (21-32) mmol/L Anion Gap 11 (4-12) mmol/L BUN 19 H (7-18) mg/dL Creatinine 0.73 (0.55-1.02) mg/dL Estim Creat Clear Calc 72 ml/min Estimated GFR > 60 (59 - ) Glucose 97 (70-99) mg/dL Calculated Osmolality 296 H (285-295) mOsm/kg Lactic Acid 1.0 (0.4-2.0) mmol/L Calcium 8.8 (8.5-10.1) mg/dL Total Bilirubin 0.3 (0.00-1.00) mg/dL AST 28 (15-37) U/L ALT 28 (14-59) U/L Alkaline Phosphatase 121 H (46-116) U/L Total Protein 7.1 (6.4-8.2) g/dL Albumin 3.2 L (3.4-5.0) g/dL Discharge Plan Discharge Clinical Impression: Superficial thrombophlebitis Qualifiers: Superficial thrombophlebitis-Involved body area: upper extremity Laterality: right Qualified Code(s): I80.8 - Phlebitis and thrombophlebitis of other sites Patient Disposition: Home, Self-Care Condition: Stable Instructions: Superficial Thrombophlebitis (ED) Additional Instructions: please follow-up with primary doctor in the next week. Please get ultrasound as planned on Tuesday morning. Patient Language: Hebrew Prescriptions: No Action gabapentin 300 mg capsule 400 mg PO TID ondansetron 4 mg tablet,disintegrating 4 mg PO Q8H PRN (Reason: nausea and vomiting) Qty: 30 0RF Zoloft 5 mg DAILY nabumetone 500 mg TID tramadol 50 mg tablet 50 mg PO Q6H PRN (Reason: pain) Qty: 20 0RF methylprednisolone [Medrol (Leo)] 4 mg tablets,dose pack See Rx Instructions PO .COMPLEX Qty: 21 0RF Rx Instructions: orally per package directions cyclobenzaprine 10 mg tablet 10 mg PO TID PRN (Reason: muscle spasm) Qty: 20 0RF Other Ambulatory Orders: US venous doppler UE RT (Routine) Timeframe: 2 Days Location: Determined by Patient Ordered By: Sanchez Baez Follow-up/Referrals: Lakesha,MD Bladimir [Primary Care Provider] - Time of Disposition: 06:29
[2024-05-12 06:06] LABS: Basophils Absolute Auto 0.03 K/mm3 (0.00-0.10); Basophils Percent Auto 0.7 % (0.0-1.0); Eosinophils Absolute Auto 0.14 K/mm3 (0.02-0.50); Eosinophils Percent Auto 3.4 % (1.0-6.0); Hematocrit 38.9 % (35.0-49.0); Hemoglobin 12.5 g/dL (12.0-15.0); Immature Granulocyte Absolute 0.02 K/mm3 (0.00-0.00); Immature Granulocyte Percent A 0.5 % (0.0-0.0); Lymphocytes Absolute Auto 1.44 K/mm3 (1.10-4.50); Mean Corpuscular HGB Conc 32.1 g/dL (32-36); Mean Corpuscular Hemoglobin 31.6 pg (27.0-31.0); Mean Corpuscular Volume 98.2 fL (78.0-102.0); Mean Platelet Volume 9.6 fl (9.2-11.8); Monocytes Absolute Auto 0.48 K/mm3 (0.10-0.90); Monocytes Percent Auto 11.7 % (2.0-11.0); Neutrophils Absolute Auto 2.01 K/mm3 (1.70-7.20); Neutrophils Percent Auto 48.7 % (50.0-70.0); Platelet Count Result 161 K/mm3 (150-420); Red Blood Count 3.96 M/mm3 (4.20-5.40); Red Cell Distribution Width 13.3 % (11.6-14.4); White Blood Count 4.1 K/mm3 (4.8-10.8)
[2024-05-12 06:25] LABS: Alanine Aminotransferase 28 U/L (14-59); Albumin Level 3.2 g/dL (3.4-5.0); Alkaline Phosphatase 121 U/L (46-116); Anion Gap 11 mmol/L (4-12); Aspartate Amino Transferase 28 U/L (15-37); Bilirubin,Total 0.3 mg/dL (0.00-1.00); Blood Urea Nitrogen 19 mg/dL (7-18); Calcium 8.8 mg/dL (8.5-10.1); Carbon Dioxide 26 mmol/L (21-32); Chloride 105 mmol/L (98-108); Estimated CRCL calculation 72 ml/min; Estimated Glomerular Filt Rate > 60; Glucose 97 mg/dL (70-99); Osmolality Calculated 296 mOsm/kg (285-295); Potassium 3.7 mmol/L (3.5-5.1); Sodium 142 mmol/L (136-145); Total Protein 7.1 g/dL (6.4-8.2)
[2024-05-12 06:40] VITALS: BP 143/96; PULSE 65; RESP 18; TEMP 36.6; O2SAT 96
--- NOTE | 2024-05-13 12:43 | PC.NURSE ---
Preliminary blood culture report; no growth to date.
== END 2024-05-12 06:45 | disposition home or self-care (01) ==
PROVIDERS: Emergency Provider Emergency Medicine; PCP Family Medicine
DX: I80.8 Phlebitis and thrombophlebitis of other sites (principal); I10 Essential (primary) hypertension
CPT/HCPCS: 36415; 80053; 83605; 85025; 87040; 99281

== ENCOUNTER 2024-05-14 11:03 | Outpatient (CLI) | payer OTHER, SELFPAY ==
--- NOTE | ~2024-05-14 | US_ITS ---
EXAMINATION: US venous doppler UE RT DATE: 05/14/2024 11:41 INDICATION: Phlebitis/thrombophlebitis the right upper extremity with palpable abnormality at the sit e of a prior peripheral IV. TECHNIQUE: Grayscale images without and with compression and Doppler images of the right upper extrem ity veins were obtained. COMPARISON: None. FINDINGS: There is wall thickening and subtle noncompressible thrombus at the right cephalic vein at the antecu bital fossa consistent with thrombophlebitis. The more proximal right cephalic vein along the right i nternal jugular vein, subclavian vein, axillary vein, brachial vein, basilic vein, radial vein, and u lnar vein are patent. IMPRESSION: 1. Central thrombosis in peripheral wall thickening of the right cephalic vein at the antecubital fos sa consistent with likely thrombophlebitis related to reported prior peripheral IV placement. Reviewed, dictated and finalized at location B. IOVASCULAR LAB DIRECTOR IMPRESSION: 1. Central thrombosis in peripheral wall thickening of the right cephalic vein at the antecubital fossa consistent with likely thrombophlebitis related to rep orted prior peripheral IV placement.
--- OUTSIDE RECORDS SUMMARY | 2024-05-14 12:26 | XMS_ITS | Encounter Summary ---
Author Organization [facility] Healthcare Address [address] [place] [address] Care Team Providers Care Director Of Logistics Name Role Phone Bladimir Crowder MD Primary Care Provider Encounter Details Date Type Department Care Team (Late st Contact Info) Description 04/25/2024 10:30 AM [facility] Hospital Encounter [facility] [address] [place] [address] Jesenia Mckeon MD [address] [facility] [facility] [address] [address] Social History Tobacco Use Types Packs/Day Years [...] COVID: Suspected 05/01/2024 05/01/2024 05/01/2024 12:26 PM [facility] documented as of this encounter Care Teams Director Of Logistics Relationship Specialty Start Date End Date Bladimir Crowder MD [address] [place] [id number] PCP - General Family Medicine 04/25/24 documented as of this encounter
--- OUTSIDE RECORDS SUMMARY | 2024-05-14 12:26 | XMS_ITS | Clinical Summary ---
Author Organization [facility] Address [address] [place] [address]. [place] [address] [place] [address] Care Team Providers Care Coremaker Pipe Name Role Phone Ruma Meade MD Primary Care Provider [phone]- [phone] Allergies No known active allergies Medications gabapentin (NEURONTIN) 300 MG capsule Take 400 mg by mouth 3 (three) times daily. 11/03/2023 Active Active Problems Problem Noted Date Diagnosed Date Alcoholic pancreatitis (HHS/HCC) 01/13/2023 Pancreatitis (HHS/HCC) 01/11/2023 Encounters Date Type Department Care Team Description 05/09/[address] [facility] [address] [place] [address] Leticia Raymundo MD 04/03/2024 10:03 AM CUT PLUG PACKER - 04/03/2024 11:59 PM CUT PLUG PACKER Hospital Encounter [facility] [address] [place] [address] Leticia Raymundo MD Discharge Disposition: Home or Self Care (Routine Discharge) 04/03/2024 Travel 03/29/2024 9:00 AM CUT PLUG PACKER - 03/29/2024 11:59 PM CUT PLUG PACKER Hospital Encounter [facility] [address] [place] [address] Bladimir Latham MD Discharge Disposition: Home or Self Care (Routine Discharge) 03/28/2024 2:32 PM CUT PLUG PACKER - 03/28/2024 11:59 PM [facility] Hospital Encounter [facility] [address] [place] [address] Leticia Raymundo MD Discharge Disposition: Home or Self Care (Routine Discharge) 03/28/[address] [facility] [address] [place] [address] Leticia Raymundo MD 03/28/2024 Travel 03/18/2024 3:01 PM CUT PLUG PACKER - 03/18/2024 4:40 PM CUT PLUG PACKER Emergency [facility] [address] [place] [address] [place] [address] Chin Cobb DO Abdominal Pain Discharge Disposition: Home or Self Care (Routine Discharge) 03/18/2024 Travel 03/06/[address] [place] [address] Samantha Mayo PA Referral 03/05/2024 9:30 AM CUT PLUG PACKER Office Visit [address] [address] Samantha Mayo PA New Patient; Hand Pain (BILATERAL) 03/05/2024 Travel 02/29/2024 Chart Prep [address] [address] Samantha Mayo PA from Last 3 Months [...] place to sleep or slept in a care home (including now)? Yes 01/11/2023 Comments No Sex and Gender Information Value Date Recorded Sex Assigned at Not on file Legal Sex Female 2:39 PM CDT Gender Identity Not on file Sexual Orientation Not on file Last Filed Vital Signs Vital Sign Reading Time Taken Comments Blood Pressure 139/79 03/18/2024 4:25 PM CUT PLUG PACKER Pulse 75 03/18/2024 4:25 PM CUT PLUG PACKER Temperature 36.4 ??C (97.5 ??F) 03/18/2024 3:16 PM CS T Respiratory Rate 18 03/18/2024 4:25 PM CUT PLUG PACKER Oxygen Saturation 98% 03/18/2024 4:25 PM CUT PLUG PACKER Inhaled Oxygen Concentration - - Weight 68 kg (150 lb) 03/18/2024 3:16 PM CUT PLUG PACKER Height 162.6 cm (5' 4 ) 03/18/2024 3:16 PM CUT PLUG PACKER Body Mass Index 25.75 03/18/2024 3:16 PM CUT PLUG PACKER Plan of Treatment Upcoming Encounters Date Type Department Care Team (Late st Contact Info) Description 05/26/2024 10:00 PM CUT PLUG PACKER Hospital Encounter [facility] [address] [place] [address] Leticia Raymundo MD [address] [place] [address] Health Maintenance Due Date Last [...] CHEST WO CON Routine 04/03/2024 10:16 AM CUT PLUG PACKER Lung nodule MG SCREENING W BIRGIT LUCIAN DIGI Routine 03/29/2024 10:02 AM CUT PLUG PACKER Visit for screening mammogram TBGOLD-TUBERCULOSIS TST CELL MEDIATED IMMUNITY Routine 03/28/2024 2:50 PM CUT PLUG PACKER Lung nodule FUNGAL PANEL 1 Routine 03/28/2024 2:50 PM CUT PLUG PACKER Lung nodule DRUG SCREEN RAPID STAT 03/18/2024 3:3 5 PM CUT PLUG PACKER HC URINALYSIS AUTO W/MICRO STAT 03/18/2024 3:35 PM CUT PLUG PACKER ETHANOL STAT 03/18/2024 3:28 PM CUT PLUG PACKER MAGNESIUM STAT 03/18/2024 3:28 PM CUT PLUG PACKER LIPASE STAT 03/18/2024 3:28 PM CUT PLUG PACKER LDH, LACTATE DEHYDROGENASE STAT 03/18/2024 3:28 PM CUT PLUG PACKER LACTIC ACID W REFLEX (SEPSIS) STAT 03/18/2024 3:28 PM CUT PLUG PACKER COMPREHENSIVE METABOLIC PANEL STAT 03/18/2024 3:28 PM CUT PLUG PACKER CBC W/DIFF AUTOMATED STAT 03/18/2024 3:28 PM CUT PLUG PACKER from Last 3 Months Results * CT CHEST WO CON (04/03/2024 10:16 AM CUT PLUG PACKER) Anatomical Region Laterality Modality Chest Computed Tomogra phy 04/03/2024 12:1 3 PM CUT PLUG PACKER Impressions 04/03/2024 3:06 PM CUT PLUG PACKER Impression: 1. Right lower lobe pulmonary nodule [...] 04/03/2024 12:13 PM Narrative 04/03/2024 3:06 PM CUT PLUG PACKER [address] [place] [address] Examination: CT CHEST WO CON Clinical Information: [...] Procedure Note Vivek Ellison MD - 04/03/[address] [place] [address] Examination: CT CHEST WO CON Clinical Information: [...] W BIRGIT LUCIAN DIGI (03/29/2024 10:02 AM CUT PLUG PACKER) Anatomical Region Laterality Modality Breast Bilateral Mammography 03/29/2024 11:5 4 AM CUT PLUG PACKER Impressions 03/29/2024 11:55 AM CUT PLUG PACKER IMPRESSION: No mammographic evidence of malignancy. Recommendation: 1: Routine Screening ??Bilateral ??in 1 Year Assessment: ACR BI-RADS 2 - BENIGN FINDING(S) Ordered By: BLADIMIR LATHAM Interpreted By: Varun Quevedo MD, 03/29/2024 11:54 AM Narrative 03/29/2024 11:55 AM CUT PLUG PACKER [address] [place] [address] Examination: Digital screening mammogram with CAD. [...] FUNGAL ANTIBODY PANEL (ID) (03/28/2024 2:50 PM CUT PLUG PACKER) ASPERGILLUS FLAVUS AB Negative Negative 2:34 PM CUT PLUG PACKER [facility] ASPERGILLUS NIGER AB Negative Negative 03/12 2:34 PM CUT PLUG PACKER [facility] ASPERGILLUS FUMIGATUS AB Negative Negative 04/02/2024 2:34 PM CUT PLUG PACKER [facility] Comment: ?Interpretive Criteria: ?? Negative: Antibody not detected ?? Positive: Antibody detected A positive result is represented by 1 or more precipitin bands, and may indicate fungus ball, allergic bronchopulmonary aspergillosis (EUSEBIO) or invasive aspergillosis. Generally, the appearance of 3-4 bands indicates either fungus ball or EUSEBIO. BLASTOMYCES AB Negative Negative 04/02/2024 2:34 PM CUT PLUG PACKER [facility] Comment: ?Interpretive Criteria: ?? Negative: Antibody not detected ?? Positive: Antibody detected A positive result is diagnostic of active or recent blastomycosis and is found in approximately 80% of proven cases of blastomycosis. COCCIDIODES AB (ID) Negative Negative 04/02 2:34 PM CUT PLUG PACKER [facility] Comment: Interpretive Criteria: [...] H AB Negative Negative 04/02/2024 2:34 PM CUT PLUG PACKER [employer] [facility]ST[facility]ESLEY Comment: This immunodiffusion assay is [...] of histoplasmosis. Test Performed by Tee Yu, [facility], [address] [place] [address] Shawn Christianson M.D., Ph.D., Director of Laboratories , [place] [id number] HISTOPLASMA CAPSULATUM M AB Negative Negative 04/02/2024 2:34 PM CUT PLUG PACKER [employer] [facility]ESLEY 03/28/2024 2:50 PM CUT PLUG PACKER Leticia Raymundo MD LABORATORY Final Result [employer] [address], * QUANTIFERON TBGOLD TUBERCULOSIS TEST (03/28/2024 2:50 PM CUT PLUG PACKER) TB1 AG MINUS NIL 0.03 IU/ML 03/29/20 1:43 PM CUT PLUG PACKER [facility] TB2 AG MINUS NIL 0.01 IU/ML 03/29/20 24 1:43 PM CUT PLUG PACKER [facility] TB QUANTIFERON NEGATIVE NEGATIVE 03/29/2024 1:43 PM CUT PLUG PACKER [facility] TB INTERPRETATION M. tuberculosis infection unlikely but cannot be excluded especially when any illness is consistent with TB disease and/or likelihood of progression to disease is increased. ?? In patients at high risk to M. tuberculosis infection, a second test should be considered. 03/29/2024 1:43 PM CUT PLUG PACKER [facility] 03/28/2024 2:50 PM CUT PLUG PACKER Leticia Raymundo MD LABORATORY Final Result [facility] [address] [place] [address], [phone] * (ABNORMAL) DRUG SCREEN RAPID (03/18/2024 3:35 PM CUT PLUG PACKER) Pathologist [facility] CANNABINOIDS SCREEN (U) POSITIVE(A) NEGATIVE 03/18/2024 3:57 PM CUT PLUG PACKER [facility] PHENCYCLIDINE PCP (U) NEGATIVE NEGATIVE 03/18/2024 3:57 PM CUT PLUG PACKER [facility] COCAINE METABOLITES (U) NEGATIVE NEGATIVE 03/18/2024 3:57 PM CUT PLUG PACKER [facility] METHAMPHETAMINE SCREEN (U) NEGATIVE NEGATIVE 03/18/2024 3:57 PM CUT PLUG PACKER [facility] OPIATE SCREEN (U) POSITIVE(A) NEGATIVE 2023 3:57 PM CUT PLUG PACKER [facility] AMPHETAMINE SCREEN (U) NEGATIVE NEGATIVE 03/18/2024 3:57 PM CUT PLUG PACKER [facility] BENZODIAZEPINES SCREEN (U) POSITIVE(A) NEGATIVE 03/18/2024 3:57 PM CUT PLUG PACKER [facility] TRICYCLIC ANTIDEPRESSANT SCREEN (U) NEGATIVE NEGATIVE 03/18/2024 3:57 PM CUT PLUG PACKER [facility] METHADONE (U) NEGATIVE NEGATIVE 03/18/2024 3:57 PM CUT PLUG PACKER [facility] BARBITURATES SCREEN (U) NEGATIVE NEGATIVE 03/18/2024 3:57 PM CUT PLUG PACKER [facility] OXYCODONE SCREEN (U) NEGATIVE NEGATIVE 03/18/2024 3:57 PM CUT PLUG PACKER [facility] URINE TOX COMMENT THIS TEST METHODOLOGY IS DESIGNED AND OFFERED A RAPID TURNAROUND, QUALITATIVE SCREENING PROCEDURE TO AID IN THE IMMEDIATE MEDICAL ASSESSMENT OF PATIENTS SUSPECTED OF SUBSTANCE ABUSE. 03/18/2024 3:39 PM CUT PLUG PACKER [facility] Comment: CLINICAL CONSIDERATION AND PROFESSIONAL JUDGMENT MUST BE APPLIED TO ANY DRUG OF ABUSE TEST RESULT, BOTH POSITIVE AND NEGATIVE. CONFIRMATORY QUANTITATIVE RESULTS ARE AVAILABLE THROUGH OUR REFERENCE LABORATORY. URINE SPECIMEN / Unknown 03/18/2024 3:35 PM CUT PLUG PACKER us Chin Cobb DO URINE ORDERABLES Final Result [facility] [address] [place] [address], * (ABNORMAL) URINALYSIS (03/18/2024 3:35 PM CUT PLUG PACKER) COLOR (U) YELLOW 03/18/2024 3:59 PM CUT PLUG PACKER [facility] TRANSPARENCY CLEAR 03/18/2024 3:59 PM CUT PLUG PACKER [facility] SPECIFIC GRAVITY (U) 1.020 1.000 - 1.025 03/18/2024 3:59 PM CUT PLUG PACKER [facility] U PH 6.0 5.0 - 8.0 03/18/2024 3:59 PM CUT PLUG PACKER [facility] LEUKOCYTES (U) NEGATIVE NEGATIVE 03/18/2024 3:59 PM CUT PLUG PACKER [facility] NITRITES NEGATIVE NEGATIVE 03/18/2024 3:59 PM CUT PLUG PACKER [facility] PROTEIN RANDOM (U) NEGATIVE NEGATIVE 03/18/2024 3:59 PM CUT PLUG PACKER [facility] GLUCOSE (U) NEGATIVE NEGATIVE 03/18/2024 3:59 PM CUT PLUG PACKER [facility] KETONES MG/DL (U) NEGATIVE NEGATIVE 03/18/2024 3:59 PM CUT PLUG PACKER [facility] UROBILINOGEN 1.0(H) <1.0 EU/DL 03/18/2024 3:59 PM CUT PLUG PACKER [facility] BILIRUBIN (U) NEGATIVE NEGATIVE 03/18/2024 3:59 PM CUT PLUG PACKER [facility] BLOOD (U) NEGATIVE NEGATIVE 03/18/2024 3:59 PM CUT PLUG PACKER [facility] WBC/HPF 0-5 0 - 5 /HPF 03/18/2024 3:59 PM CUT PLUG PACKER [facility] RBC/HPF 0-5 0 - 5 /HPF 03/18/2024 3:59 PM CUT PLUG PACKER [facility] EPI/LPF OCCASIONAL /LPF 03/18/2024 3:59 PM CUT PLUG PACKER [facility] BACTERIA (U) 1+ /HPF 03/18/2024 3:59 PM CUT PLUG PACKER [facility] URINE SPECIMEN OBTAINED BY CLEAN CATCH PROCEDURE / Unknown 03/18/2024 3:35 PM CUT PLUG PACKER us Chin Cobb DO URINE ORDERABLES [place] [address], [place] [phone] * LACTIC ACID W REFLEX (SEPSIS) (03/18/2024 3:28 PM CUT PLUG PACKER) LACTIC ACID VENOUS 1.1 0.4 - 2.0 MMOL/L 03/18/2024 3:54 PM CUT PLUG PACKER [facility] 03/18/2024 3:28 PM CUT PLUG PACKER us Chin Cobb DO LABORATORY Final Result Performing Organization Address City/[facility]/ZIP Co de Phone Number [facility] [address] [place] [address], [place] [phone] * (ABNORMAL) COMPREHENSIVE METABOLIC PANEL (03/18/2024 3:28 PM CUT PLUG PACKER) SODIUM S/P/B 136 136 - 145 MMOL/L 03/18/2024 4:02 PM CUT PLUG PACKER [facility] POTASSIUM S/P/B 3.7 3.5 - 5.1 MMOL/L 03/18/2024 4:02 PM CUT PLUG PACKER [facility] CHLORIDE S/P/B 100 98 - 107 MMOL/L 03/18/2024 4:02 PM CUT PLUG PACKER [facility] CO2 27.7 21.0 - 32.0 MMOL/L 03/18/2024 4:02 PM [facility] GLUCOSE 69(L) 70 - 99 MG/DL 03/18/2024 4:02 PM [facility] Comment: FASTING GLUCOSE 100 TO 125 MG/DL IS CONSISTENT WITH IMPAIRED FASTING GLUCOSE. FASTING GLUCOSE >125 MG/DL IS CONSISTENT WITH DIABETES. RANDOM GLUCOSE >200 MG/DL WITH HYPERGLYCEMIC SYMPTOMS IS CONSISTENT WITH DIABETES. PER ADA GUIDELINES BUN 17 6 - 24 MG/DL 03/18/2024 4:02 PM [facility] CREATININE S/P/B 0.61 0.55 - 1.02 MG/DL 03/18/2024 4:02 PM [facility] CALCIUM S/P/B 9.0 8.4 - 10.5 MG/DL 03/18/2024 4:02 PM [facility] BILIRUBIN TOTAL S/P/B 0.6 0.2 - 1.0 MG/DL 03/18/2024 4:02 PM [facility] Comment: THIS ASSAY IS NOT RECOMMENDED FOR PATIENTS UNDERGOING TREATMENT WITH ELTROMBOPAG DUE TO THE POTENTIAL FOR FALSELY ELEVATED RESULTS. ALKALINE PHOSPHATASE S/P/B 90 39 - 100 U/L 03/18/2024 4:02 PM [facility] AST 29 15 - 37 U/L 03/18/2024 4:02 PM [facility] ALT 26 14 - 59 U/L 03/18/2024 4:02 PM [facility] TOTAL PROTEIN S/P/B 7.3 6.4 - 8.2 G/DL 03/18/2024 4:02 PM [facility] ALBUMIN S/P/B 3.6 3.4 - 5.0 G/DL 03/18/2024 4:02 PM [facility] ANION GAP 8.3 5.0 - 15.0 MMOL/L 03/18/2024 4:02 PM [facility] OSMOLALITY (CALC) 282 MOSM/KG 024 4:02 PM [facility] Comment:REFERENCE RANGE NOT ESTABLISHED GFR ESTIMATE >90 >89 ML/MIN/1. 73 M2 03/18/2024 4:02 PM CUT PLUG PACKER [facility] GFR NOTES GFR REFERENCE S: 03/18/2024 4:02 PM CUT PLUG PACKER [facility] Comment: THE ESTIMATED GFR IS [...] FAILURE: <15 ml/min/1.73 m2 03/18/2024 3:28 PM CUT PLUG PACKER us Chin Cobb DO LABORATORY Final Result Performing Organization Address [facility]/ZIP Co de Phone Number [facility] [address] [place] [address], * LDH, LACTATE DEHYDROGENASE (03/18/2024 3:28 PM CUT PLUG PACKER) LDH 155 81 - 234 UNITS/L 03/18/2024 4:10 PM CUT PLUG PACKER [facility] 03/18/2024 3:28 PM CUT PLUG PACKER us Chin Cobb DO LABORATORY Final Result Performing Organization Address [facility] de Phone Number [facility] [address] [place] [address], * (ABNORMAL) CBC W/DIFF AUTOMATED (03/18/2024 3:28 PM CUT PLUG PACKER) WBC 4.01 4.00 - 10.80 x10'3/uL 03/18/2024 3:41 PM CUT PLUG PACKER [facility] RBC 3.80(L) 4.10 - 5.40 x10'6/uL 03/18/2024 3:41 PM [facility] HGB 12.7 12.0 - 16.0 G/DL 03/18/2024 3:41 PM [facility] HCT 37.0 36.0 - 47.0 % 03/18/2024 3:41 PM [facility] MCV 97.4 78.0 - 100.0 FL 03/18/2024 3:41 PM [facility] MCH 33.4(H) 27.0 - 31.0 PG 03/18/2024 3:41 PM [facility] MCHC 34.3 33.0 - 36.0 G/DL 03/18/2024 3:41 PM [facility] RDW 12.0 11.5 - 14.5 % 03/18/2024 3:41 PM [facility] PLT 87(L) 150 - 350 x10'3/uL 03/18/2024 3:41 PM [facility] MPV 10.3 7.4 - 10.4 FL 03/18/2024 3:41 PM [facility] CBC COMMENT NORMAL REFERENCE RANGE NOT ESTABLISHED FOR THE PROPORTIONAL LEUKOCYTE DIFFERENTIAL. 03/18/2024 3:41 PM [facility] NEUTROPHILS % 51.4 % 03/18/2024 4:15 PM [facility] LYMPHOCYTES % 36.2 % 03/18/2024 4:15 PM [facility] MONOCYTES % 9.2 % 03/18/2024 4:15 PM [facility] EOSINOPHILS % 2.5 % 03/18/2024 4:15 PM [facility] BASOPHILS % 0.5 % 03/18/2024 4:15 PM [facility] IMMATURE GRANS % 0.2 % 03/18/20 4:15 PM [facility] NRBC % 0.0 % 03/18/2024 4:15 PM [facility] ABS. NEUTROPHILS 2.06 1.60 - 8.30 x10'3/uL 03/18/2024 4:15 PM [facility] ABS. LYMPHOCYTES 1.45 0.80 - 4.70 x10'3/uL 03/18/2024 4:15 PM CUT PLUG PACKER [facility] ABS. MONOCYTES 0.37 0.00 - 1.50 x10'3/uL 03/18/2024 4:15 PM CUT PLUG PACKER [facility] ABS. EOSINOPHILS 0.10 0.00 - 0.40 x10'3/uL 03/18/2024 4:15 PM CUT PLUG PACKER [facility] ABS. BASOPHILS 0.02 0.00 - 0.20 x10'3/uL 03/18/2024 4:15 PM CUT PLUG PACKER [facility] ABS. IMMATURE GRANULOCYTES 0.01 0.00 - 0.03 x10'3/uL 03/18/2024 4:15 PM CUT PLUG PACKER [facility] ABS. NUCLEATED RBC'S 0.00 0.00 - 0.01 x10'3/uL 03/18/2024 4:15 PM CUT PLUG PACKER [facility] PLT MORPH. DECREASED 03/18/2024 4:15 PM CUT PLUG PACKER [facility] RBC MORPHOLOGY NORMAL 03/18/2024 4:15 PM CUT PLUG PACKER [facility] 03/18/2024 3:28 PM CUT PLUG PACKER us Chin Cobb DO LABORATORY Final Result Performing Organization Address [facility] [place] [address], * (ABNORMAL) MAGNESIUM (03/18/2024 3:28 PM CUT PLUG PACKER) MAGNESIUM 1.6(L) 1.8 - 2.4 MG/DL 03/18/2024 4:10 PM CUT PLUG PACKER [facility] 03/18/2024 3:28 PM CUT PLUG PACKER us Chin Cobb DO LABORATORY Final Result Performing Organization Address City/[facility]/ZIP Co de Phone Number [facility] [address] [place] [address], * (ABNORMAL) LIPASE (03/18/2024 3:28 PM CUT PLUG PACKER) LIPASE 83(H) 16 - 77 UNITS/L 03/18/2024 4:10 PM CUT PLUG PACKER [facility] 03/18/2024 3:28 PM CUT PLUG PACKER us Chin Cobb DO LABORATORY Final Result Performing Organization Address [facility]/ZIP Co de Phone Number [facility] [address] [place] [id number], * ETHANOL (03/18/2024 3:28 PM CUT PLUG PACKER) ALCOHOL S/P/B <0.003 <0.003 G/DL 03/18/2024 4:02 PM CUT PLUG PACKER [facility] 03/18/2024 3:28 PM CUT PLUG PACKER us Chin Cobb DO LABORATORY Final Result Performing Organization Address [facility] de Phone Number [facility] [address] [place] [address], from Last 3 Months Insurance MEDICAID Advance Directives * Full Code (Latest Code Status on File) Date Activated Date Inactivated Comments 01/11/2023 7:19 PM 01/14/2023 10:44 PM Care Teams Coremaker Pipe Relationship Specialty Start Date End Date Ruma Meade MD [address] [place] [phone] PCP - General FAMILY PRACTICE 03/18/24
--- OUTSIDE RECORDS SUMMARY | 2024-05-14 12:26 | XMS_ITS | Clinical Summary ---
Author Organization [facility] Address [address] [place] [address] Care Team Providers Care Md Pediatric Allergist Name Role Phone Bladimir Crowder MD Primary Care Provider [phone] Allergies No known active allergies Medications gabapentin [...] Type Department Care Team Description 05/08/2024 Telephone [facility] [id number] [address] Shara Yates DO 05/07/2024 Documentation [facility] Off Program [address] [place] [phone] Latrice Dumont 05/05/2024 Documentation [facility] [address] [place] [phone] Hilario, Jana EValentín 05/03/2024 Documentation [facility] Warm [facility] Program [address] [place], [place] [phone] Hilario, Jana EValentín 05/02/2024 Documentation [facility] [address] [place] [phone] Latrice Dumont 05/01/2024 Documentation [facility] 1 [place] [phone] Hilario, Jana EValentín 04/30/2024 Documentation [facility] [address] [place] [phone] Latrice Dumont 04/29/2024 Documentation [facility] [address] [place], [place] [phone] Latrice Dumont 04/27/2024 AM[facility] Enrollment [facility] [address] [place], [place] [phone] Hilario, Jana EValentín 04/25/2024 10:50 AM BISCUIT FACTORY WORKER - 05/07/2024 3:39 PM BISCUIT FACTORY WORKER Hospital Encounter [address] [address] Maddie White MD Sargsyan, Narine, MD Sinha, Chandni, MD Abegunde, Veronica O., MD Nations, Matthew Austin, Alcohol withdrawal syndrome without complication (HCC) (Primary Dx); Unspecified mood disorder (HCC) Discharge Disposition: Discharge to home or self care 04/25/2024 10:30 AM BISCUIT FACTORY WORKER Hospital Encounter [facility] [address] [place] [phone] Jesenia Mckeon MD 04/25/2024 8:30 AM BISCUIT FACTORY WORKER Lab [address] [phone] 04/25/2024 Documentation [facility] [address] [place] [address] Jana Hilario 04/25/2024 Documentation [facility] [address] [place] [address] Jana Hilario 04/23/2024 Documentation [facility] [address] [place] [address] Latrice Dumont from Last 3 Months Social [...] Comments Blood Pressure 118/80 05/07/2024 10:52 AM BISCUIT FACTORY WORKER Pulse 74 05/07/2024 10:52 AM BISCUIT FACTORY WORKER Temperature 36.6 ??C (97.9 ??F) 05/07/2024 10:[address] Respiratory Rate 20 05/07/2024 10:52 AM BISCUIT FACTORY WORKER Oxygen Saturation 91% 05/07/2024 10:52 AM BISCUIT FACTORY WORKER Inhaled Oxygen Concentration - - Weight 78.6 kg (173 lb 4.5 oz) 05/02/2024 1:12 A M BISCUIT FACTORY WORKER Height 165.1 cm (5' 5 ) 04/29/2024 3:24 PM BISCUIT FACTORY WORKER Body Mass Index 28.84 04/29/2024 3:24 PM BISCUIT FACTORY WORKER Plan of Treatment Health Maintenance Due Date [...] Diagnosis Comments EGFR Routine 05/05/2024 12:12 PM BISCUIT FACTORY WORKER CBC WITHOUT DIFFERENTIAL Routine 05/05/2024 12:12 PM BISCUIT FACTORY WORKER COMPREHENSIVE METABOLIC PANEL Routine 05/05/2024 12:12 PM BISCUIT FACTORY WORKER TRANSTHORACIC ECHO (TTE) COMPLETE W DOPPLER/CF WO CONTRAST Routine 05/04/2024 7:30 AM BISCUIT FACTORY WORKER US UPPER EXTREMITY RIGHT LIMITED IP Routine 05/03/2024 2:05 PM BISCUIT FACTORY WORKER BLOOD CULTURE Routine 05/03/2024 1:35 PM BISCUIT FACTORY WORKER BLOOD CULTURE Routine 05/03/2024 11:25 AM BISCUIT FACTORY WORKER TROPONIN T HIGH-SENSITIVITY 6-HOUR Timed 05/02/2024 11:01 AM BISCUIT FACTORY WORKER TROPONIN T HIGH-SENSITIVITY 2-HOUR Timed 05/02/2024 6:37 AM BISCUIT FACTORY WORKER TROPONIN T HIGH-SENSITIVITY SERIES (BASELINE, 2HR, 4HR, 6HR) Routine 05/02/2024 4:17 AM BISCUIT FACTORY WORKER ECG 12-LEAD Routine 05/02/2024 2:17 AM BISCUIT FACTORY WORKER US ABDOMEN LIMITED IP Routine 05/01/2024 3: 50 PM BISCUIT FACTORY WORKER APTT STAT 05/01/2024 2:50 PM BISCUIT FACTORY WORKER PROTIME-INR STAT 05/01/2024 2:50 PM BISCUIT FACTORY WORKER URINALYSIS, MICROSCOPIC ONLY Routine 05/01/2024 10:44 AM BISCUIT FACTORY WORKER URINALYSIS AND REFLEX TO MICROSCOPIC AND CULTURE Routine 05/01/2024 10:44 AM BISCUIT FACTORY WORKER RESPIRATORY PATHOGEN PANEL Routine 05/01/2024 10:04 AM BISCUIT FACTORY WORKER XR CHEST 1 VIEW IP Routine 05/01/2024 9:53 AM BISCUIT FACTORY WORKER EGFR STAT 05/01/2024 8:52 AM BISCUIT FACTORY WORKER LACTATE STAT 05/01/2024 8:52 AM BISCUIT FACTORY WORKER COMPREHENSIVE METABOLIC PANEL STAT 05/01/2024 8:52 AM BISCUIT FACTORY WORKER CBC WITHOUT DIFFERENTIAL STAT 05/01/2024 8:52 AM BISCUIT FACTORY WORKER BLOOD CULTURE Routine 04/30/2024 8:47 PM BISCUIT FACTORY WORKER BLOOD CULTURE Routine 04/30/2024 8:47 PM BISCUIT FACTORY WORKER MRI LUMBAR SPINE WO CONTRAST IP Routine 04/30/2024 2:26 [address] ABDOMEN PELVIS W CONTRAST IP Routine 04/29/2024 9:22 AM BISCUIT FACTORY WORKER EGFR Routine 04/29/2024 4:53 AM BISCUIT FACTORY WORKER DIFFERENTIAL AUTO Routine 04/29/2024 4:5 3 AM BISCUIT FACTORY WORKER PHOSPHORUS Routine 04/29/2024 4:53 AM BISCUIT FACTORY WORKER MAGNESIUM Routine 04/29/2024 4:53 AM BISCUIT FACTORY WORKER HEPATIC FUNCTION PANEL Routine 04/29/2024 4:53 AM BISCUIT FACTORY WORKER CBC WITH AUTO DIFFERENTIAL Routine 04/29/2024 4:53 AM BISCUIT FACTORY WORKER BASIC METABOLIC PANEL Routine 04/29/2024 4:53 AM BISCUIT FACTORY WORKER HEPATIC FUNCTION PANEL Add-On 04/28/2024 1:16 PM BISCUIT FACTORY WORKER LIPASE STAT 04/28/2024 1:16 PM BISCUIT FACTORY WORKER EGFR Routine 04/26/2024 8:41 AM BISCUIT FACTORY WORKER COMPREHENSIVE METABOLIC PANEL Routine 04/26/2024 8:41 AM BISCUIT FACTORY WORKER CBC WITHOUT DIFFERENTIAL Routine 04/26/2024 8:41 AM BISCUIT FACTORY WORKER APTT STAT 04/25/2024 8:53 AM BISCUIT FACTORY WORKER PROTIME-INR STAT 04/25/2024 8:53 AM BISCUIT FACTORY WORKER MAGNESIUM Add-On 04/25/2024 8:53 AM BISCUIT FACTORY WORKER EGFR STAT 04/25/2024 8:53 AM BISCUIT FACTORY WORKER DIFFERENTIAL AUTO STAT 04/25/2024 8:5 3 AM BISCUIT FACTORY WORKER ETHANOL STAT 04/25/2024 8:53 AM BISCUIT FACTORY WORKER COMPREHENSIVE METABOLIC PANEL STAT 04/25/2024 8:53 AM BISCUIT FACTORY WORKER CBC WITH AUTO DIFFERENTIAL STAT 04/25/2024 8:53 AM BISCUIT FACTORY WORKER EGFR STAT 04/25/2024 8:33 AM BISCUIT FACTORY WORKER DRUGS OF ABUSE SCREEN, URINE WITHOUT CONFIRMATION Routine 04/25/2024 8:33 AM BISCUIT FACTORY WORKER CBC WITHOUT DIFFERENTIAL STAT 04/25/2024 8:33 AM BISCUIT FACTORY WORKER COMPREHENSIVE METABOLIC PANEL STAT 04/25/2024 8:33 AM BISCUIT FACTORY WORKER from Last 3 Months Results * eGFR (05/05/2024 12:12 PM BISCUIT FACTORY WORKER) eGFR >90 >=60 mL/min/1. 73 m2 Comment: [...] reviewed 2021. Blood 05/05/2024 12:1 2 PM BISCUIT FACTORY WORKER 05/05/2024 12:26 PM BISCUIT FACTORY WORKER us Shara Yates DO LAB BLOOD ORDERABLES F inal Result [facility] ([place]) 1 [facility] Department [place] [address] * (ABNORMAL) CBC without differential (05/05/2024 12:12 PM BISCUIT FACTORY WORKER) WBC 4.3 3.8 - 9.9 K/cumm Hgb [...] [facility] ([place]) Blood 05/05/2024 12:1 2 PM BISCUIT FACTORY WORKER 05/05/2024 12:26 PM BISCUIT FACTORY WORKER Shara Zach [facility] DO LAB BLOOD ORDERABLES F inal Result [facility] ([place]) 1 [facility] Department [place] [address] * (ABNORMAL) Comprehensive metabolic panel (05/05/2024 12:12 PM BISCUIT FACTORY WORKER) Sodium 138 135 - 145 mmol/L Potassium, pl 4.1 3.3 - 4.9 mmol/L [facility] ([place]) Chloride 104 97 - 110 mmol/L [facility] ([place]) CO2 24 22 - 32 mmol/L [facility] ([place]) Anion gap 11 2 - 15 mmol/L [facility] ([place]) BUN 12 6 - 25 mg/dL [facility] Creatinine 0.45(L) 0.60 [...] [facility] ([place]) Blood 05/05/2024 12:1 2 PM BISCUIT FACTORY WORKER 05/05/2024 12:26 PM BISCUIT FACTORY WORKER Shara Serrano [facility] DO LAB BLOOD ORDERABLES F inal Result [facility] ([place]) 1 [facility] Department [place] [address] * TRANSTHORACIC ECHO (TTE) COMPLETE W DOPPLER/CF WO CONTRAST (05/04/2024 7:30 AM BISCUIT FACTORY WORKER) LV EF 60-65 % CONS SCIMAGE Anatomical Region Laterality Modality Ultrasound 05/04/2024 7:13 AM BISCUIT FACTORY WORKER Narrative 05/04/2024 4:47 PM BISCUIT FACTORY WORKER [address] [place] [address] Echocardiogram Report Patient Name: LATRICE VALENCIA : 1975 Study Date: 05/04/2024 7:13:46 AM Gender: F Tech: Location: [address] Provider: SHARA YATES ?Height(Cm): 165 BSA: [...] By: Kwaku Blanco MD 05/04/2024 4:46:44 PM BISCUIT FACTORY WORKER Procedure Note Kwaku Blanco MD - 05/04/[address] [address] Echocardiogram Report Patient Name: LATRICE VALENCIA : 1975 Study Date: 05/04/2024 7:13:46 AM Gender: F Tech: Location: [id number] Ref Provider: SHARA YATES Height(Cm): 165 BSA: [...] By: Kwaku Blanco MD 05/04/2024 4:46:44 PM BISCUIT FACTORY WORKER Shara Serrano [facility] DO CV ECHO PROCEDURES Fin al Result * US Upper Extremity Right Limited (05/03/2024 2:05 PM BISCUIT FACTORY WORKER) Anatomical Region Laterality Modality Upper Extremities Right Ultrasound 05/03/2024 4:48 PM BISCUIT FACTORY WORKER Narrative 05/03/2024 4:51 PM BISCUIT FACTORY WORKER EXAM DESCRIPTION: ?? US UPPER EXTREMITY RIGHT LIMITED REASON FOR STUDY: ?? Patient with cellulitis at site of right forearm prior IV site. Firmness at this area, wanting to rule out an abscess. ?? TECHNIQUE: A Dynamic assessment was performed of the soft tissues in the right elbow region by the game manager, with selected grayscale and color Doppler images [...] PM T: ??05/03/2024 4:51 PM Report ID: [id number] Reading Location: ??[id number] Procedure Note Boyd Cook MD - 05/03/2024 EXAM DESCRIPTION: US UPPER EXTREMITY RIGHT LIMITED REASON FOR STUDY: Patient with cellulitis at site of right forearm priorIV site. Firmness at this area, wanting to rule out an abscess. TECHNIQUE: A Dynamic assessment was performed of the soft tissues in theright elbow region by the game manager, with selected grayscale and color Doppler images acquired and recorded in PACS. COMPARISON: None FINDINGS: Thrombus is seen within a superficial vein within the region of concern,with prominent peripheral vascularity. IMPRESSION: Superficial thrombophlebitis within the region of concern. THIS IS AN ELECTRONICALLY VERIFIED FINAL REPORT 05/03/2024 4:51 PM - Electronically signed by Boyd Cook M.D. KR: CHANG Report ID: [id number] Reading Location: [id number] Shara Serrano [facility] DO IMG US PROCEDURES Maeve l Result * Blood culture Blood (05/03/2024 1:35 PM BISCUIT FACTORY WORKER) Report Final Report: No growth Comment:Testing performed by : [facility], [address] [facility], [place]., [address] Blood 05/03/2024 1:35 PM BISCUIT FACTORY WORKER 05/03/2024 4:30 PM BISCUIT FACTORY WORKER Kris RENAE ([place]) - 05/08/2024 7:00 AM BISCUIT FACTORY WORKER From a different site than #1. Collection->Peripheral [...] have been verified by the [facility] Microbiology Laboratory. For questions about this culture, contact the Microbiology Laboratory at [phone]. Interpretive data was last revised on 24. Shara Yates DO LAB MICROBIOLOGY - GEN ERAL ORDERABLES Final Result [facility] ([place]) 1 [facility] Department of Laboratories [place], [place] [id number] * Blood culture Blood (05/03/2024 11:25 AM BISCUIT FACTORY WORKER) Report Final Report: No growth Comment:Testing performed by : [facility], 1 [place]., [address] Blood 05/03/2024 11:2 5 AM BISCUIT FACTORY WORKER 05/03/2024 1:53 PM BISCUIT FACTORY WORKER Narrative [facility] ([place]) - 05/07/2024 4:00 PM BISCUIT FACTORY WORKER Collection->Peripheral 1. ?Blood cultures are incubated for [...] have been verified by the [facility] Microbiology Laboratory. For questions about this culture, contact the Microbiology Laboratory at [phone]. Interpretive data was last revised on 24. Shara Yates DO LAB MICROBIOLOGY - GEN ERAL ORDERABLES Final Result Performing Organization Address City/[facility]/ZIP Co de Phone Number [facility] ([place]) 1 [facility] [address] [place] [address] * Troponin T high-sensitivity 6-hour (05/02/2024 11:01 AM BISCUIT FACTORY WORKER) Trop T hs <6 <=14 ng/L Comment: Interpretive Data For further hscTnT resources including the diagnostic algorithm and an aid in interpretation, copy and paste this link: https://nrl.testcatalog.org/show/hsTrop Current Interpretive Data last revised 2020. Trop T hs delta 0 ng/L [facility] ([place]) Trop T hs interp Insignificant [facility] ([place]) Blood 05/02/2024 11:0 1 AM BISCUIT FACTORY WORKER 05/02/2024 11:11 AM BISCUIT FACTORY WORKER us Guille Wall MD LAB BLOOD ORDERABLES Final Resu lt [facility] ([place]) 1 [facility] [place] [address] * Troponin T high-sensitivity 2-hour (05/02/2024 6:37 AM BISCUIT FACTORY WORKER) Trop T hs <6 <=14 ng/L Comment: Interpretive Data For further hscTnT resources including the diagnostic algorithm and an aid in interpretation, copy and paste this link: https://nrl.testcatBlume Distillation.org/show/hsTrop Current Interpretive Data last revised 2020. Trop T hs delta 0 ng/L [facility] ([place]) Trop T hs interp Insignificant [facility] ([place]) Blood 05/02/2024 6:37 AM BISCUIT FACTORY WORKER 05/02/2024 7:06 AM BISCUIT FACTORY WORKER Guille Wall MD LAB BLOOD ORDERABLES Final Resu lt Performing Organization Address [facility]/ZIP Co de Phone Number [facility] ([place]) 1 [facility] [address] [place] [address] * Troponin T high-sensitivity series (baseline, 2hr, 4hr, 6hr) (05/02/2024 4:17 AM BISCUIT FACTORY WORKER) Trop T hs <6 <=14 ng/L Comment: Interpretive Data For further hscTnT resources including the diagnostic algorithm and an aid in interpretation, copy and paste this link: https://nrl.testcatBlume Distillation.org/show/hsTrop Current Interpretive Data last revised 2020. Blood 05/02/2024 4:17 AM BISCUIT FACTORY WORKER 05/02/2024 4:40 AM BISCUIT FACTORY WORKER Guille Wall MD LAB BLOOD ORDERABLES Final Resu lt [facility] ([place]) 1 [facility] [address] [place] [address] * ECG 12 lead (05/02/2024 2:17 AM BISCUIT FACTORY WORKER) 05/02/2024 2:17 AM BISCUIT FACTORY WORKER Narrative [facility] - 05/02/2024 7:39 AM BISCUIT FACTORY WORKER Vent Rate: 73 bpm RR Interval: 816 msec MI Interval: 180 msec QRS Duration: 84 msec QT Interval: 397 msec QTC Interval: 423 msec P-R-T [place]: 40 - -21 - 31 degrees IMPRESSION: SINUS RHYTHM WITH SINUS ARRHYTHMIA BORDERLINE LEFT AXIS DEVIATION [QRS AXIS < -20] BORDERLINE ECG Electronically Signed By: Kwaku Blanco MD Guille Wall MD ECG ORDERABLES Final Result [facility] * US Abdomen Limited (05/01/2024 3:50 PM BISCUIT FACTORY WORKER) Anatomical Region Laterality Modality Abdomen N/A Ultrasound 05/01/2024 5:06 PM BISCUIT FACTORY WORKER Narrative 05/01/2024 5:08 PM BISCUIT FACTORY WORKER EXAM DESCRIPTION: ?? US ABDOMEN LIMITED REASON [...] PM T: ??05/01/2024 5:08 PM Report ID: [id number] Reading Location: ??[id number] Procedure Note Boyd Caldwell MD - 05/01/2024 [...] Boyd Caldwell M.D. KT: KT Report ID: [id number] Reading Location: [place] [address] [facility] DO IMG US PROCEDURES Maeve l Result * aPTT (05/01/2024 2:50 PM BISCUIT FACTORY WORKER) aPTT 34 28 - 38 sec [facility] ([place]) Comment: Interpretive Data Heparin therapeutic range: 66.0 - 100.0 seconds. Range based on correlation with therapeutic heparin activity range of 0.3 - 0.7 Units/mL. Current interpretive data was last revised on 2023. Blood 05/01/2024 2:50 PM BISCUIT FACTORY WORKER 05/01/2024 3:05 PM BISCUIT FACTORY WORKER [facility] LAB BLOOD ORDERABLES F inal Result [facility] ([place]) 1 [facility] Department of Laboratories [place] [id number] * (ABNORMAL) Protime-INR (05/01/2024 2:50 PM BISCUIT FACTORY WORKER) PT 14.9(H) 9.7 - 13.0 sec [facility] ([place]) INR 1.37(H) 0.90 - 1.20 [facility] ([place]) Comment: Interpretive data Oral anticoagulant therapeutic ranges: Venous thromboembolism prophylaxis or treatment: 2.0-3.0 CARDIOLOGY Standard range: 2.0-3.0 High-intensity range: 2.5-3.5 Refer to indication-specific guidelines for appropriate target ranges for prosthetic heart valve replacement. Current interpretive data was last revised on 2019. Blood 05/01/2024 2:50 PM BISCUIT FACTORY WORKER 05/01/2024 3:05 PM BISCUIT FACTORY WORKER [facility] DO LAB BLOOD ORDERABLES F inal Result [facility] ([place]) 1 [facility] Department [place] [address] * (ABNORMAL) Urinalysis reflex to microscopic and culture Urine (05/01/2024 10:44 AM BISCUIT FACTORY WORKER) Color, ur Yellow Yellow Clarity, ur Clear [...] tendency for uric acid stone formation. Source: [facility] [employer] Current Interpretive Data was last revised on [...] [facility] ([place]) Urine 05/01/2024 10:4 4 AM BISCUIT FACTORY WORKER 05/01/2024 10:50 AM BISCUIT FACTORY WORKER us Shara Yates DO LAB MICROBIOLOGY - GEN ERAL ORDERABLES Final Result [facility] ([place]) 1 [facility] Department [place] [address] * (ABNORMAL) Urinalysis, microscopic only (05/01/2024 10:44 AM BISCUIT FACTORY WORKER) WBC, ur 0-5 0 - 5 /HPF RBC, ur 0-2 0 - 2 /HPF [facility] ([place]) Epithelial cells, squamous, ur 11-20(A) 0 - 5 /HPF [facility] ([place]) Bacteria, ur Trace(A) [facility] ([place]) Mucous, ur Present(A) [facility] ([place]) Culture Reflex Comment Reflex conditions for urine culture (WBC >10) not met. [facility] ([place]) Urine 05/01/2024 10:4 4 AM BISCUIT FACTORY WORKER 05/01/2024 10:50 AM BISCUIT FACTORY WORKER us Shara Yates DO LAB URINE ORDERABLES F inal Result [facility] ([place]) 1 [facility] Department [place] [address] * Respiratory pathogen panel Nasopharyngeal (05/01/2024 10:04 AM BISCUIT FACTORY WORKER) Pathologist [facility] Influenza A RNA Not Detected Not Detected [facility] Comment:Testing performed by : [address] [address] Influenza B RNA Not Detected Not Detected [facility] ([place]) Comment:Testing performed by : [address] [address] RSV RNA Not Detected Not Detected [facility] ([place]) Comment:Testing performed by : [address] [address] COVID-19 RNA Not Detected Not Detected [facility] ([place]) Comment:Testing performed by : [address] [address] Coronavirus 229E RNA Not Detected Not Detected [facility] ([place]) Comment:Testing performed by : [address] [address] Coronavirus HKU1 RNA Not Detected Not Detected [facility] ([place]) Comment:Testing performed by : [address] [address] Coronavirus NL63 RNA Not Detected Not Detected [facility] ([place]) Comment:Testing performed by : [address] [address] Coronavirus OC43 RNA Not Detected Not Detected [facility] ([place]) Comment:Testing performed by : [facility], [address] [place] [address], [address] Adenovirus DNA Not Detected Not Detected [facility] ([place]) Comment:Testing performed by : [facility], [address] [place] [address], [address] Metapneumovirus RNA Not Detected Not Detected [facility] ([place]) Comment:Testing performed by : [facility], [address] [place] [address]., [address] Rhinovirus/Enterov irus RNA Not Detected Not Detected [facility] ([place]) Comment:Testing performed by : [facility], [address] [place] [address], [address] Parainfluenza 1 RNA Not Detected Not Detected [facility] ([place]) Comment:Testing performed by : [facility], [address] [place] [address], [address] Parainfluenza 2 RNA Not Detected Not Detected [facility] ([place]) Comment:Testing performed by : [facility], [address] [place] [address], [address] Parainfluenza 3 RNA Not Detected Not Detected [facility] ([place]) Comment:Testing performed by : [facility], [address] [place] [address], [address] Parainfluenza 4 RNA Not Detected Not Detected [facility] ([place]) Comment:Testing performed by : [facility], [address] [place] [address], [address] B. pertussis DNA Not Detected Not Detected [facility] ([place]) Comment:Testing performed by : [facility], [address] [place] [address], [address] B. parapertussis DNA Not Detected Not Detected [facility] ([place]) Comment:Testing performed by : [facility], [address] [place] [address], [address] C. pneumoniae DNA Not Detected Not Detected [facility] ([place]) Comment:Testing performed by : [facility], [address] [place] [address], [address] M. pneumoniae DNA Not Detected Not Detected [facility] ([place]) Comment: Interpretive Data The OFERTALDIA FilmArray Respiratory Panel (RP2.1) assay is a [...] assay has FDA clearance for testing of PHYSICAL INTEGRATION PRACTITIONER swabs. ??The performance characteristics of this assay have been determined by [facility]. Current interpretive data was last revised on 2020. Testing performed by: [facility], [address] [place] [address], [place]., [address] Nasopharyngeal 05/01/2024 10 :04 AM BISCUIT FACTORY WORKER 05/01/2024 11:23 AM BISCUIT FACTORY WORKER Narrative [facility] ([place]) - 05/01/2024 12:24 PM BISCUIT FACTORY WORKER Is the Patient experiencing symptoms consistent with COVID?->Yes Surveillance testing for transplant patient?->No Shara Yates DO LAB MICROBIOLOGY - GEN ERAL ORDERABLES Final Result [facility] ([place]) 1 [facility] Department [place] [address] CH * XR CHEST 1 VIEW PORTABLE (05/01/2024 9:53 AM BISCUIT FACTORY WORKER) Anatomical Region Laterality Modality Body, Chest N/A Computed Radiogr aphy 05/01/2024 12:2 9 PM BISCUIT FACTORY WORKER Narrative 05/01/2024 12:30 PM BISCUIT FACTORY WORKER EXAM DESCRIPTION: ?? XR CHEST 1 VIEW [...] PM T: ??05/01/2024 12:30 PM Report ID: [id number] Reading Location: ??[id number] Procedure Note Dong Thorne MD - 05/01/2024 [...] Dong Thorne M.D. RB: ADALID Report ID: [id number] Reading Location: [id number] Shara Zach Yates DO IMG XR PROCEDURES Maeve l Result * Lactate (05/01/2024 8:52 AM BISCUIT FACTORY WORKER) Pathologist [facility] Lactate 1.3 0.7 - 2.0 mmol/L Blood 05/01/2024 8:52 AM BISCUIT FACTORY WORKER 05/01/2024 9:01 AM BISCUIT FACTORY WORKER Shara Serrano Suzy DO LAB BLOOD ORDERABLES F inal Result Performing Organization Address City/State/[facility] Co de Phone Number [facility] [place]) 4 [facility] Department [place] [address] * eGFR (05/01/2024 8:52 AM BISCUIT FACTORY WORKER) eGFR >90 >=60 mL/min/1. 73 m2 Comment: [...] last reviewed 2021. Blood 05/01/2024 8:52 AM BISCUIT FACTORY WORKER 05/01/2024 9:40 AM BISCUIT FACTORY WORKER Shara Serrano Suzy DO LAB BLOOD ORDERABLES F inal Result [facility] ([place]) 1 [facility] Department [place] [address] * (ABNORMAL) CBC without differential (05/01/2024 8:52 AM BISCUIT FACTORY WORKER) WBC 6.4 3.8 - 9.9 K/cumm Hgb [...] [facility] ([place]) Blood 05/01/2024 8:52 AM BISCUIT FACTORY WORKER 05/01/2024 9:40 AM BISCUIT FACTORY WORKER us Shara Yates DO LAB BLOOD ORDERABLES F inal Result [facility] ([place]) 1 [facility] Department [place] [address] * (ABNORMAL) Comprehensive metabolic panel (05/01/2024 8:52 AM BISCUIT FACTORY WORKER) Sodium 132(L) 135 - 145 mmol/L Potassium, [...] [facility] ([place]) Blood 05/01/2024 8:52 AM BISCUIT FACTORY WORKER 05/01/2024 9:40 AM BISCUIT FACTORY WORKER Shara Serrano [facility] DO LAB BLOOD ORDERABLES F inal Result [facility] (ALLI) 1 [facility] Department [place] [address] * (ABNORMAL) Blood culture Blood (04/30/2024 8:47 PM BISCUIT FACTORY WORKER) Direct Specimen Exam Molecular Analysis: Methicillin-suscep tible Staphylococcus aureus (MSSA) detected by the maxx ePlex BCID-GP panel. This test does not exclude the possibility of a mixed bacterial infection. Notification of: Methicillin-suscep tible Staphylococcus aureus (MSSA) called to and read back by: Latrice Wellington MLS ([phone]) on 05/02/2024 01:41:52 by: Fritz Kebede MLS Comment:Testing performed by : [facility], [address] [place] [address]., [id number] Direct Specimen Exam Stain: Gram Positive Cocci in clusters Time to culture positivity (anaerobic media): 22.7 hours Notification of: Gram Positive Cocci in clusters called to and read back by: Latrice Wellington MLS ([phone]) on 05/01/2024 23:41:23 by: Fritz Kebede MLS Test result called to and read back by fabio stephenson on 05/02/2024 00:23:23 by latrice RENAE (ALLI) Comment:Testing performed by : [facility], [address] [place] [address]., [id number] Report Final Report: Staphylococcus aureus Methicillin susceptible (MSSA) by penicillin binding protein 2a (PBP2a) testing. (.) [facility] (ALLI) Comment:Testing performed by : [facility], [address] [facility], [place]., [address] Organism STAPHYLOCOCCUS AUREUS [facility] (ALLI) Blood 04/30/2024 8:47 PM BISCUIT FACTORY WORKER 05/01/2024 Kris HOLLOWAY [facility] (ALLI) - 05/06/2024 1:15 PM BISCUIT FACTORY WORKER From a different site than #1. Collection->Peripheral [...] have been verified by the [facility] Microbiology Laboratory. For questions about this culture, contact the Microbiology Laboratory at [phone]. Interpretive data was last revised on 24. [...] Wall MD LAB MICROBIOLOGY - GENERAL ORDE [facility] Final Result Performing Organization Address City/[facility]/ZIP Co de Phone Number AMIE RENAE (ALLI) 1 [facility] Department [place] [address] * Blood culture Blood (04/30/2024 8:47 PM BISCUIT FACTORY WORKER) Report Final Report: No growth Comment:Testing performed by : [facility], [address] [place]., [address] Blood 04/30/2024 8:47 PM BISCUIT FACTORY WORKER 05/01/2024 Narrative AMIE RENAE (ALLI) - 05/05/2024 7:00 AM BISCUIT FACTORY WORKER Collection->Peripheral 1. ?Blood cultures are incubated for [...] have been verified by the [facility] Microbiology Laboratory. For questions about this culture, contact the Microbiology Laboratory at [phone]. Interpretive data was last revised on 24. Guille Wall MD LAB MICROBIOLOGY - GENERAL LINDEN LARSEN Final Result Performing Organization Address City/[facility]/ZIP Co de Phone Number AMIE RENAE (ALLI) 1 [facility] Department [place] [address] * MRI Lumbar Spine WO Contrast (04/30/2024 2:26 PM BISCUIT FACTORY WORKER) Anatomical Region Laterality Modality Spine N/A Magnetic Resonan ce 04/30/2024 4:06 PM BISCUIT FACTORY WORKER Narrative 04/30/2024 4:12 PM BISCUIT FACTORY WORKER EXAM DESCRIPTION: ?? MRI LUMBAR SPINE WO [...] PM T: ??04/30/2024 4:12 PM Report ID: [id number] Reading Location: ??[id number] Procedure Note Bo Travis MD - 04/30/2024 [...] Relevant portions of CT abdomen pelvis with mhubpxzy16/19/2025. FINDINGS: SEGMENTATION: No lumbosacral transitional anatomy. The [...] Bo Travis M.D. DORIS: DORIS Report ID: [id number] Reading Location: [place] [address] us Zee Khan MD IMG MRI PROCEDURES Final Result * CT Abdomen Pelvis W Contrast (04/29/2024 9:22 AM BISCUIT FACTORY WORKER) Anatomical Region Laterality Modality Body N/A Computed Tomogra phy 04/29/2024 12:5 1 PM BISCUIT FACTORY WORKER Narrative 04/29/2024 12:58 PM BISCUIT FACTORY WORKER EXAM DESCRIPTION: ?? CT ABDOMEN PELVIS W [...] PM T: ??04/29/2024 12:58 PM Report ID: [id number] Reading Location: ??[id number] Procedure Note Dave Chaudhry MD - 04/29/2024 [...] Alphonso Chaudhry M.D. DORIS: DORIS Report ID: [id number] Reading Location: [id number] us Zee Khan MD IMG CT PROCEDURES Final Result * eGFR (04/29/2024 4:53 AM BISCUIT FACTORY WORKER) eGFR >90 >=60 mL/min/1. 73 m2 Comment: [...] last reviewed 2021. Blood 04/29/2024 4:53 AM BISCUIT FACTORY WORKER 04/29/2024 5:18 AM BISCUIT FACTORY WORKER us Zee Khan MD LAB BLOOD ORDERABLES Fin al Result [facility] ([place]) 1 [facility] Department [place] [address] * Differential, auto (04/29/2024 4:53 AM BISCUIT FACTORY WORKER) Neutrophil abs 2.2 1.5 - 6.5 K/cumm Imm gran abs 0.0 0.0 - 0.1 K/cumm [facility] ([place]) Lymphocyte abs 1.4 0.8 - 3.3 K/cumm [facility] ([place]) Monocyte abs 0.6 0.2 - 0.8 K/cumm [facility] ([place]) Eosinophil abs 0.2 0.0 - 0.5 K/cumm [facility] ([place]) Basophil abs 0.0 0.0 - 0.1 K/cumm [facility] ([place]) Neutrophil pct 49.5 % [facility] R [facility] [...] revised on 2017. Blood 04/29/2024 4:53 AM BISCUIT FACTORY WORKER 04/29/2024 5:17 AM BISCUIT FACTORY WORKER us Zee Khan MD LAB BLOOD ORDERABLES Fin al Result AMIE RENAE (ALLI) 1 [facility] Department [place] [address] * (ABNORMAL) CBC with auto differential (04/29/2024 4:53 AM BISCUIT FACTORY WORKER) WBC 4.4 3.8 - 9.9 K/cumm Hgb [...] [facility] ([place]I) Blood 04/29/2024 4:53 AM BISCUIT FACTORY WORKER 04/29/2024 5:17 AM BISCUIT FACTORY WORKER Zee Khan MD LAB BLOOD ORDERABLES Fin al Result AMIE RENAE (ALLI) 1 [facility] [employer] [place] [address] * (ABNORMAL) Phosphorus (04/29/2024 4:53 AM BISCUIT FACTORY WORKER) Phosphorus, pl 4.6(H) 2.3 - 4.5 mg/dL Blood 04/29/2024 4:53 AM BISCUIT FACTORY WORKER 04/29/2024 5:18 AM BISCUIT FACTORY WORKER Zee Khan MD LAB BLOOD ORDERABLES Fin al Result AMIE RENAE (ALLI) 1 [facility] [employer] [place] [address] * Magnesium (04/29/2024 4:53 AM BISCUIT FACTORY WORKER) Magnesium 1.6 1.4 - 2.5 mg/dL Blood 04/29/2024 4:53 AM BISCUIT FACTORY WORKER 04/29/2024 5:18 AM BISCUIT FACTORY WORKER Zee Khan MD LAB BLOOD ORDERABLES Fin al Result Performing Organization Address [facility] Co de Phone Number [facility] (ALLI) [address] [place] [address] [place] [address] * Hepatic function panel (04/29/2024 4:53 AM BISCUIT FACTORY WORKER) [facility] Bilirubin, total 0.3 0.1 - 1.2 mg/dL Bilirubin, direct 0.1 0.1 - 0.3 mg/dL [facility] ([place]I) Protein, pl 6.9 6.5 - 8.5 g/dL [facility] Albumin 3.6 3.5 - 5.0 g/dL [facility] ([facility] Alk phos 89 40 - 130 Units/L [facility] ([place]) ALT 16 7 - 45 Units/L [facility] ([place]) AST 27 10 - 45 Units/L [facility] ([facility] Blood 04/29/2024 4:53 AM BISCUIT FACTORY WORKER 04/29/2024 5:18 AM BISCUIT FACTORY WORKER Zee Khan MD LAB BLOOD ORDERABLES Fin al Result Performing Organization Address [facility] Co de Phone Number [facility] (ALLI) [address] [place] [address] [place] [address] * Basic metabolic panel (04/29/2024 4:53 AM BISCUIT FACTORY WORKER) Pathologist [facility] Sodium 139 135 - 145 mmol/L Potassium, pl 3.8 3.3 - 4.9 mmol/L [facility] ([place]) Chloride 104 97 - 110 mmol/L [facility] ([place]) CO2 25 22 - 32 mmol/L [facility] ([place]) Anion gap 10 2 - 15 mmol/L [facility] ([facility] BUN 23 6 - 25 mg/dL [facility] ([place]I) Creatinine 0.61 0.60 - 1.10 mg/dL [facility] ([place]I) Glucose 85 70 - 199 mg/dL [facility]IE [facility] (ALLI) Comment: Interpretive Data Fasting glucose [...] 8.5 - 10.3 mg/dL [facility] (ALLI) Blood 04/29/2024 4:53 AM BISCUIT FACTORY WORKER 04/29/2024 5:18 AM BISCUIT FACTORY WORKER Zee Khan MD LAB BLOOD ORDERABLES Fin al Result Performing Organization Address [facility] Co de Phone Number [facility] ([place]) 1 [facility] [place] [address] * Lipase (04/28/2024 1:16 PM BISCUIT FACTORY WORKER) Lipase 90 10 - 99 Units/L Blood 04/28/2024 1:16 PM BISCUIT FACTORY WORKER 04/28/2024 1:47 PM BISCUIT FACTORY WORKER Zee Khan MD LAB BLOOD ORDERABLES Fin al Result Performing Organization Address [facility] Co de Phone Number [facility] (ALLI) 1 [facility] [place] [address] * Hepatic function panel (04/28/2024 1:16 PM BISCUIT FACTORY WORKER) Bilirubin, total 0.3 0.1 - 1.2 mg/dL Bilirubin, direct <0.1 0.1 - 0.3 mg/dL [facility] (ALLI) Comment: Hemolysis present. ??Results may be affected. Moderately Hemolyzed Specimen Protein, pl 7.0 6.5 - 8.5 g/dL [facility] ([place]) Albumin 3.6 3.5 - 5.0 g/dL [facility] ([place]) Alk phos 77 40 - 130 Units/L [facility] ([place]) ALT 18 7 - 45 Units/L [facility] ([place]) Comment: Hemolysis present. ??Results may be affected. Moderately Hemolyzed Specimen AST 35 10 - 45 Units/L [facility] (ALLI) Comment: Hemolysis present. ??Results may be affected. Moderately Hemolyzed Specimen Blood 04/28/2024 1:16 PM BISCUIT FACTORY WORKER 04/28/2024 2:18 PM BISCUIT FACTORY WORKER us Zee Khan MD LAB BLOOD ORDERABLES Fin al Result [facility] ([place]) 1 [facility] [place] [address] * eGFR (04/26/2024 8:41 AM BISCUIT FACTORY WORKER) eGFR >90 >=60 mL/min/1. 73 m2 Comment: [...] last reviewed 2021. Blood 04/26/2024 8:41 AM BISCUIT FACTORY WORKER 04/26/2024 8:57 AM BISCUIT FACTORY WORKER us Maddie White MD LAB BLOOD ORDERABLES Maeve lopez Result [facility] ([place]) 1 [facility] [place] [address] * (ABNORMAL) CBC without differential (04/26/2024 8:41 AM BISCUIT FACTORY WORKER) WBC 6.4 3.8 - 9.9 K/cumm Hgb [...] [facility] ([place]) Blood 04/26/2024 8:41 AM BISCUIT FACTORY WORKER 04/26/2024 8:57 AM BISCUIT FACTORY WORKER us Maddie White MD LAB BLOOD ORDERABLES Maeve lopez Result [facility] ([place] 1 [facility] Department [place] [address] * Comprehensive metabolic panel (04/26/2024 8:41 AM BISCUIT FACTORY WORKER) Sodium 138 135 - 145 mmol/L Potassium, [...] [facility] ([place]I) Blood 04/26/2024 8:41 AM BISCUIT FACTORY WORKER 04/26/2024 8:57 AM BISCUIT FACTORY WORKER us Maddie White MD LAB BLOOD ORDERABLES Maeve l Result AMIE RENAE ([place]) 1 [facility] [address] [place] [address] * eGFR (04/25/2024 8:53 AM BISCUIT FACTORY WORKER) eGFR >90 >=60 mL/min/1. 73 m2 Comment: [...] last reviewed 2021. Blood 04/25/2024 8:53 AM BISCUIT FACTORY WORKER 04/25/2024 8:55 AM BISCUIT FACTORY WORKER us Chang Mckeon MD LAB BLOOD ORDERABLE S Final Result AMIE RENAE ([place]) 1 [facility] [address] [place] [address] * (ABNORMAL) Differential, auto (04/25/2024 8:53 AM BISCUIT FACTORY WORKER) Neutrophil abs 6.3 1.5 - 6.5 K/cumm [...] revised on 2017. Blood 04/25/2024 8:53 AM BISCUIT FACTORY WORKER 04/25/2024 8:55 AM BISCUIT FACTORY WORKER us Chang Mckeon MD LAB BLOOD ORDERABLE S Final Result [facility] ([place]) 1 [facility] [employer] [place] [address] * (ABNORMAL) CBC with auto differential (04/25/2024 8:53 AM BISCUIT FACTORY WORKER) WBC 7.4 3.8 - 9.9 K/cumm Hgb [...] [facility] ([place]) Blood 04/25/2024 8:53 AM BISCUIT FACTORY WORKER 04/25/2024 8:55 AM BISCUIT FACTORY WORKER us Chang Mckeon MD LAB BLOOD ORDERABLE S Final Result [facility] ([place]) 1 [facility] [place] [address] * aPTT (04/25/2024 8:53 AM BISCUIT FACTORY WORKER) aPTT 29 28 - 38 sec AMIE RENAE ([place]) Comment: Interpretive Data Heparin therapeutic range: 66.0 - 100.0 seconds. Range based on correlation with therapeutic heparin activity range of 0.3 - 0.7 Units/mL. Current interpretive data was last revised on 2023. Blood 04/25/2024 8:53 AM BISCUIT FACTORY WORKER 04/25/2024 5:58 PM BISCUIT FACTORY WORKER Maddie White MD LAB BLOOD ORDERABLES Maeve l Result AMIE [facility] ([place]) 1 [facility] [address] [place] [address] * Protime-INR (04/25/2024 8:53 AM BISCUIT FACTORY WORKER) PT 11.5 9.7 - 13.0 sec AMIE RE[facility]E ([place]) INR 1.06 0.90 - 1.20 AMIE RE[facility]E ([place]) Comment: Interpretive data Oral anticoagulant therapeutic ranges: Venous thromboembolism prophylaxis or treatment: 2.0-3.0 CARDIOLOGY Standard range: 2.0-3.0 High-intensity range: 2.5-3.5 Refer to indication-specific guidelines for appropriate target ranges for prosthetic heart valve replacement. Current interpretive data was last revised on 2019. Blood 04/25/2024 8:53 AM BISCUIT FACTORY WORKER 04/25/2024 5:58 PM BISCUIT FACTORY WORKER Maddie White MD LAB BLOOD ORDERABLES Maeve l Result [facility] ([place]) 1 [facility] [address] [place] [address] * Magnesium (04/25/2024 8:53 AM BISCUIT FACTORY WORKER) Magnesium 1.4 1.4 - 2.5 mg/dL Blood 04/25/2024 8:53 AM BISCUIT FACTORY WORKER 04/25/2024 9:56 AM BISCUIT FACTORY WORKER Chang Mckeon MD LAB BLOOD ORDERABLE S Final Result Performing Organization Address City/[facility]/ZIP Co de Phone Number AMIE RENAE (ALLI) 1 [facility] [place] [address] * (ABNORMAL) Ethanol (04/25/2024 8:53 AM BISCUIT FACTORY WORKER) Ethanol 59(H) <=10 mg/dL Comment: Interpretive Data Legal limit of intoxication > or = 80 mg/dL Levels > or = 400 mg/dL are potentially TOXIC. Current interpretive data was last revised on 2018. Blood 04/25/2024 8:53 AM BISCUIT FACTORY WORKER 04/25/2024 8:55 AM BISCUIT FACTORY WORKER Chang Mckeon MD LAB BLOOD ORDERABLE S Final Result Performing Organization Address [facility] Co de Phone Number AMIE RENAE (ALLI) 1 [facility] [place] [address] * (ABNORMAL) Comprehensive metabolic panel (04/25/2024 8:53 AM BISCUIT FACTORY WORKER) Pathologist [facility] Sodium 134(L) 135 - 145 mmol/L Potassium, pl 3.5 3.3 - 4.9 mmol/L [facility] ([place]) Chloride 99 97 - 110 mmol/L [facility] (ALLI) CO2 21(L) 22 - 32 mmol/L [facility] ([place]) Anion gap 14 2 - 15 mmol/L [facility] ([place]) BUN 13 6 - 25 mg/dL [facility] ([place]) Creatinine 0.48(L) 0.60 - 1.10 mg/dL [facility] ([place]) Glucose 141 70 - 199 mg/dL [facility] ([place]) Comment: Interpretive Data Fasting [...] 19 7 - 45 Units/L [facility] ([place]) AST 27 10 - 45 Units/L [facility] ([place]) Comment:Slightly Hemolyzed S pecimen Blood 04/25/2024 8:53 AM BISCUIT FACTORY WORKER 04/25/2024 8:55 AM BISCUIT FACTORY WORKER us Chang Mckeon MD LAB BLOOD ORDERABLE S Final Result [facility] ([place]) 1 [facility] Department of Laboratories [place], [place] [id number] * eGFR (04/25/2024 8:33 AM BISCUIT FACTORY WORKER) eGFR >90 >=60 mL/min/1. 73 m2 Comment: [...] last reviewed 2021. Blood 04/25/2024 8:33 AM BISCUIT FACTORY WORKER 04/25/2024 8:41 AM BISCUIT FACTORY WORKER us Jesenia Mckeon MD LAB BLOOD ORDERABLES Final Re sult [facility]IE RE[facility]E ([place]) 1 [facility] [place] [address] * (ABNORMAL) Drugs of Abuse Screen, Urine without Confirmation (04/25/2024 8:33 AM BISCUIT FACTORY WORKER) Amphetamine, ur Screen Positive, presumptive (A) CutOff [...] revised on 2017. Urine 04/25/2024 8:33 AM BISCUIT FACTORY WORKER 04/25/2024 8:43 AM BISCUIT FACTORY WORKER Narrative [facility] ([place]) - 04/25/2024 9:03 AM BISCUIT FACTORY WORKER Drug of Abuse screening is performed by immunoassay for medical purposes only. ??This is not to be used for Pain Management purposes. Jesenia Mckeon MD LAB URINE ORDERABLES Final Re sult [facility] ([place]) 1 [facility] [place] [address] * (ABNORMAL) CBC without differential (04/25/2024 8:33 AM BISCUIT FACTORY WORKER) WBC 7.3 3.8 - 9.9 K/cumm Hgb [...] RDW SD 42.5 35.7 - 48.1 fL [facility] ([place] NRBC abs 0.00 0.00 - 0.01 K/cumm [facility] ([place]) Blood 04/25/2024 8:33 AM BISCUIT FACTORY WORKER 04/25/2024 8:41 AM BISCUIT FACTORY WORKER us Jesenia Mckeon MD LAB BLOOD ORDERABLES Final Re sult [facility] ([place]) 1 [facility] [place] [address] * (ABNORMAL) Comprehensive metabolic panel (04/25/2024 8:33 AM BISCUIT FACTORY WORKER) Sodium 135 135 - 145 mmol/L Potassium, pl 3.4 3.3 - 4.9 mmol/L [facility] ([place]) Chloride 101 97 - 110 mmol/L [facility] ([place] CO2 19(L) 22 - 32 mmol/L [facility] ([place] Anion gap 15 2 - 15 mmol/L [facility] ([place]) BUN 13 6 - 25 mg/dL [facility] ([place]) Creatinine 0.47(L) 0.60 - 1.10 mg/dL [facility] ([place]) Glucose 156 70 - 199 mg/dL [facility] ([place] Comment: Interpretive Data [...] Hemolyzed S pecimen Blood 04/25/2024 8:33 AM BISCUIT FACTORY WORKER 04/25/2024 8:41 AM BISCUIT FACTORY WORKER us Jesenia Mckeon MD LAB BLOOD ORDERABLES Final Re sult [facility] ([place]) 1 [facility] [place] [address] from Last 3 Months Insurance [employer] [facility] [place] Advance Directives For more information, please contact: [phone] * Full Code (Latest Code Status on File) Date Activated Date Inactivated Comments 04/25/2024 5:41 PM 05/07/2024 7:44 PM Care Teams Md Pediatric Allergist Relationship Specialty Start Date End Date Bladimir Crowder MD [address] [place] [id number] PCP - General Family Medicine 04/25/24
--- OUTSIDE RECORDS SUMMARY | 2024-05-14 12:26 | XMS_ITS | Referral Summary ---
Author Organization [facility] Address [address] [place] [address] Care Team Providers Care Team Leader Surgery Name Role Phone Bladimir Crowder MD Primary Care Provider Encounters Date Type Department Care Team Description 05/08/2024 Telephone [facility] Medical [facility] [employer] [facility] [id number] [place] [phone] Shara Yates, 05/07/2024 Documentation [facility] [address] [place], [place] [phone] Latrice Dumont 04/25/2024 10:50 AM [employer] - 05/07/2024 3:39 PM [employer] Hospital Encounter [facility] 1 [place] [address] Maddie White MD Sargsyan, Narine, MD Sinha, Chandni, MD Abegunde, Veronica O., MD Nations, Matthew Austin, DO Alcohol withdrawal syndrome without complication (HCC) (Primary Dx); Unspecified mood disorder (HCC) Discharge Disposition: Discharge to home or self care 05/05/2024 Documentation [facility] [address] [place], [place] [phone] Hilario Jana EValentín 05/03/2024 Documentation [facility] [address] [place] [phone] Hilario Janaroseann Benitez 05/02/2024 Documentation [facility] [address] [place] [phone] Latrice Dumont 05/01/2024 Documentation [facility] [address] [place] [phone] Hilario, Jana Emmanuel 04/30/2024 Documentation [facility] [address] [place] [phone] Latrice Dumont 04/29/2024 Documentation [facility] [address] [place] [phone] Latrice Dumont 04/27/2024 [facility] Enrollment [facility] [address] [place], [place] [phone] Hilario, Jana E. 04/25/2024 Documentation [facility] [address] [place], [place] [phone] Hilario, Jana E. 04/25/2024 Documentation [facility] [address] [place] [address] Hilario, Jana E. 04/25/2024 8:30 AM [employer] TEACHER Lab [address] [phone] 04/25/2024 10:30 AM [employer] TE[employer]ER Hospital Encounter [facility] [address] [place] [phone] Jesenia Mckeon MD 04/23/2024 Documentation [facility] [address] [place] [address] Latrice Dumont from Last 3 Months Allergies [...] Comments Blood Pressure 118/80 05/07/2024 10:52 AM [employer] TE[employer] Pulse 74 05/07/2024 10:52 AM [employer] TE[employer]ER Temperature 36.6 ??C (97.9 ??F) 05/07/2024 10:[address] Respiratory Rate 20 05/07/2024 10:52 AM [employer] TE[employer]ER Oxygen Saturation 91% 05/07/2024 10:52 AM [employer] TE[employer]ER Inhaled Oxygen Concentration - - Weight 78.6 kg (173 lb 4.5 oz) 05/02/2024 1:12 AM [employer] TE[employer] Height 165.1 cm (5' 5 ) 04/29/2024 3:24 PM [employer] TE[employer] Body Mass Index 28.84 04/29/2024 3:24 PM [employer] TE[employer]ER Plan of Treatment Not on file Procedures Procedure Name Priority Date/Time Associated Diagnosis Comments EGFR Routine 05/05/2024 12:12 PM [employer]ER CBC WITHOUT DIFFERENTIAL Routine 05/05/2024 12:12 PM [employer] TE[employer]ER COMPREHENSIVE METABOLIC PANEL Routine 05/05/2024 12:12 PM [employer] TEACHER TRANSTHORACIC ECHO (TTE) COMPLETE W DOPPLER/CF WO CONTRAST Routine 05/04/2024 7:30 AM [employer] TE[employer]ER US UPPER EXTREMITY RIGHT LIMITED IP Routine 05/03/2024 2:05 PM [employer] TEACHER BLOOD CULTURE Routine 05/03/2024 1:35 PM [employer] TE[employer]ER BLOOD CULTURE Routine 05/03/2024 11:25 AM [employer] TEACHER TROPONIN T HIGH-SENSITIVITY 6-HOUR Timed 05/02/2024 11:01 AM [employer] TE[employer]ER TROPONIN T HIGH-SENSITIVITY 2-HOUR Timed 05/02/2024 6:37 AM [employer] TEACHER TROPONIN T HIGH-SENSITIVITY SERIES (BASELINE, 2HR, 4HR, 6HR) Routine 05/02/2024 4:17 AM [employer] TE[employer]ER ECG 12-LEAD Routine 05/02/2024 2:17 AM [employer] TEACHER US ABDOMEN LIMITED IP Routine 05/01/2024 3: 50 PM [employer] TEACHER APTT STAT 05/01/2024 2:50 PM [employer] TE[employer]ER PROTIME-INR STAT 05/01/2024 2:50 PM [employer] TE[employer]ER URINALYSIS, MICROSCOPIC ONLY Routine 05/01/2024 10:44 AM [employer] TEACHER URINALYSIS AND REFLEX TO MICROSCOPIC AND CULTURE Routine 05/01/2024 10:44 AM [employer] TE[employer]ER RESPIRATORY PATHOGEN PANEL Routine 05/01/2024 10:04 AM [employer] TEACHER XR CHEST 1 VIEW IP Routine 05/01/2024 9:53 AM [employer] TE[employer]ER EGFR STAT 05/01/2024 8:52 AM [employer] TEACHER LACTATE STAT 05/01/2024 8:52 AM [employer] TEACHER COMPREHENSIVE METABOLIC PANEL STAT 05/01/2024 8:52 AM [employer] TEACHER CBC WITHOUT DIFFERENTIAL STAT 05/01/2024 8:52 AM [employer] TEACHER BLOOD CULTURE Routine 04/30/2024 8:47 PM [employer] TEACHER BLOOD CULTURE Routine 04/30/2024 8:47 PM [employer] TEACHER MRI LUMBAR SPINE WO CONTRAST IP Routine 04/30/2024 2:26 PM [employer] CT ABDOMEN PELVIS W CONTRAST IP Routine 04/29/2024 9:22 AM [employer] TE[employer]ER EGFR Routine 04/29/2024 4:53 AM [employer] TEACHER DIFFERENTIAL AUTO Routine 04/29/2024 4:5 3 AM [employer] TEACHER PHOSPHORUS Routine 04/29/2024 4:53 AM [employer] TE[employer]ER MAGNESIUM Routine 04/29/2024 4:53 AM [employer] TEACHER HEPATIC FUNCTION PANEL Routine 04/29/2024 4:53 AM [employer] TEACHER CBC WITH AUTO DIFFERENTIAL Routine 04/29/2024 4:53 AM [employer] TEACHER BASIC METABOLIC PANEL Routine 04/29/2024 4:53 AM [employer] TEACHER HEPATIC FUNCTION PANEL Add-On 04/28/2024 1:16 PM [employer] TE[employer]ER LIPASE STAT 04/28/2024 1:16 PM [employer] TE[employer]ER EGFR Routine 04/26/2024 8:41 AM [employer] TEACHER COMPREHENSIVE METABOLIC PANEL Routine 04/26/2024 8:41 AM [employer] TEACHER CBC WITHOUT DIFFERENTIAL Routine 04/26/2024 8:41 AM [employer] TEACHER APTT STAT 04/25/2024 8:53 AM [employer] TEACHER PROTIME-INR STAT 04/25/2024 8:53 AM [employer] TEACHER MAGNESIUM Add-On 04/25/2024 8:53 AM [employer] TEACHER EGFR STAT 04/25/2024 8:53 AM [employer] TEACHER DIFFERENTIAL AUTO STAT 04/25/2024 8:5 3 AM [employer] TEACHER ETHANOL STAT 04/25/2024 8:53 AM [employer] TEACHER COMPREHENSIVE METABOLIC PANEL STAT 04/25/2024 8:53 AM [employer] TEACHER CBC WITH AUTO DIFFERENTIAL STAT 04/25/2024 8:53 AM [employer] TEACHER EGFR STAT 04/25/2024 8:33 AM [employer] TEACHER DRUGS OF ABUSE SCREEN, URINE WITHOUT CONFIRMATION Routine 04/25/2024 8:33 AM [employer] TEACHER CBC WITHOUT DIFFERENTIAL STAT 04/25/2024 8:33 AM [employer] TEACHER COMPREHENSIVE METABOLIC PANEL STAT 04/25/2024 8:33 AM [employer] TEACHER from Last 3 Months Results * eGFR (05/05/2024 12:12 PM [employer] TEACHER) [facility] eGFR >90 >=60 mL/min/1. 73 m2 Comment: [...] reviewed 2021. Blood 05/05/2024 12:1 2 PM [employer] TEACHER 05/05/2024 12:26 PM [employer] TEACHER Shara Serrano Suzy DO LAB BLOOD ORDERABLES F inal Result [facility] ([place]) 1 [facility] Department [place] [address] * (ABNORMAL) CBC without differential (05/05/2024 12:12 PM [employer] TE[employer]ER) WBC 4.3 3.8 - 9.9 K/cumm Hgb 12.4 11.9 - 15.5 g/dL [facility] ([place]) Hct 36.7 35.6 - 45.5 % [facility] ([place]) Plt 117(L) 150 - 400 K/cumm [facility] ([place]) MPV 10.2 9.1 - 12.3 fL [facility] ([place]) RBC 3.87(L) 3.90 - 5.20 M/cumm [facility] ([place]) MCV 94.8 81.3 - 96.4 fL [facility] MCH 32.0 27.1 - 33.3 pg [facility] MCHC 33.8 32.3 - 35.7 g/dL [facility] RDW CV 13.3 11.1 - 14.9 % [facility] ([place]) RDW SD 46.5 35.7 - 48.1 fL [facility] ([place]) NRBC abs 0.00 0.00 - 0.01 K/cumm [facility] ([place]) Blood 05/05/2024 12:1 2 PM [employer] TEACHER 05/05/2024 12:26 PM [employer] TEACHER Shara Yates DO LAB BLOOD ORDERABLES F inal Result [facility] ([place]) 1 [facility] Department [place] [address] * (ABNORMAL) Comprehensive metabolic panel (05/05/2024 12:12 PM [employer] TEACHER) Sodium 138 135 - 145 mmol/L Potassium, pl 4.1 3.3 - 4.9 mmol/L [facility] ([place]) Chloride 104 97 - 110 mmol/L [facility] ([place]) CO2 24 22 - 32 mmol/L [facility] ([place]) Anion gap 11 2 - 15 mmol/L [facility] ([place]) BUN 12 6 - 25 mg/dL [facility] ([place]) Creatinine 0.45(L) 0.60 - 1.10 mg/dL [facility] ([place]) Glucose 102 70 - 199 mg/dL [facility] ([place]) Comment: Interpretive Data Fasting glucose [...] [facility] ([place]) Blood 05/05/2024 12:1 2 PM [employer] TEACHER 05/05/2024 12:26 PM [employer] TEACHER us Shara Yates DO LAB BLOOD ORDERABLES F inal Result [facility] ([place]) 1 [facility] Department [place] [address] * TRANSTHORACIC ECHO (TTE) COMPLETE W DOPPLER/CF WO CONTRAST (05/04/2024 7:30 AM [employer] TEACHER) LV EF 60-65 % CONS SCIMAGE Anatomical Region Laterality Modality Ultrasound 05/04/2024 7:13 AM [employer] TE[employer]ER Narrative 05/04/2024 4:47 PM [employer] TE[employer]ER [address] [place] [address] Echocardiogram Report Patient Name: LATRICE VALENCIA : 1975 Study Date: 05/04/2024 7:13:46 AM Gender: F Tech: NL Location: [id number] Ref Provider: SHARA YATES ?Height(Cm): 165 BSA: [...] By: Kwaku Blanco MD 05/04/2024 4:46:44 PM [employer]ER Procedure Note Kwaku Blanco MD - 05/04/2024 [place] [address] Echocardiogram Report Patient Name: LATRICE VALENCIA : 1975 Study Date: 05/04/2024 7:13:46 AM Gender: F Tech: Location: [id number] Ref Provider: SHARA YATES Height(Cm): 165 BSA: [...] By: Kwaku Blanco MD 05/04/2024 4:46:44 PM [employer] TEACHER us Shara Yates DO CV ECHO PROCEDURES Fin al Result * US Upper Extremity Right Limited (05/03/2024 2:05 PM [employer] TEACHER) Anatomical Region Laterality Modality Upper Extremities Right Ultrasound 05/03/2024 4:48 PM [employer] TEACHER Narrative 05/03/2024 4:51 PM [employer] TEACHER EXAM DESCRIPTION: ?? US UPPER EXTREMITY RIGHT LIMITED REASON FOR STUDY: ?? Patient with cellulitis at site of right forearm prior IV site. Firmness at this area, wanting to rule out an abscess. ?? TECHNIQUE: A Dynamic assessment was performed of the soft tissues in the right elbow region by the marketing programs specialist, with selected grayscale and color Doppler images [...] PM T: ??05/03/2024 4:51 PM Report ID: [id number] Reading Location: ??[id number] Procedure Note Boyd Cook MD - 05/03/2024 EXAM DESCRIPTION: US UPPER EXTREMITY RIGHT LIMITED REASON FOR STUDY: Patient with cellulitis at site of right forearm priorIV site. Firmness at this area, wanting to rule out an abscess. TECHNIQUE: A Dynamic assessment was performed of the soft tissues in theright elbow region by the marketing programs specialist, with selected grayscale and color Doppler images acquired and recorded in PACS. COMPARISON: None FINDINGS: Thrombus is seen within a superficial vein within the region of concern,with prominent peripheral vascularity. IMPRESSION: Superficial thrombophlebitis within the region of concern. THIS IS AN ELECTRONICALLY VERIFIED FINAL REPORT 05/03/2024 4:51 PM - Electronically signed by Boyd Cook M.D. KR: CHANG Report ID: [id number] Reading Location: [id number] Shara Serrano [facility] DO IMG US PROCEDURES Maeve l Result * Blood culture Blood (05/03/2024 1:35 PM [employer] TEACHER) Report Final Report: No growth Comment:Testing performed by : [facility], [address] [facility] [place]., [address] Blood 05/03/2024 1:35 PM [employer]UC[employer] TEACHER 05/03/2024 4:30 PM [employer] TEACHER Narrative [facility] ([place]) - 05/08/2024 7:00 AM [employer]UCATION TEACHER From a different site than #1. Collection->Peripheral [...] performance characteristics have been verified by the [facility] Microbiology Laboratory. For questions about this culture, contact the Microbiology Laboratory at [phone]. Interpretive data was last revised on 24. Shara Serrano Suzy DO LAB MICROBIOLOGY - GEN ERAL ORDERABLES Final Result [facility] ([place]) 1 [facility] Department [place] [address] * Blood culture Blood (05/03/2024 11:25 AM [employer] TEACHER) Report Final Report: No growth Comment:Testing performed by : [facility], [address] [place]., [address] Blood 05/03/2024 11:2 5 AM [employer]UCATION TEACHER 05/03/2024 1:53 PM [employer]UCATION TEACHER Narrative [facility] ([place]) - 05/07/2024 4:00 PM [employer]UC[employer] TEACHER Collection->Peripheral 1. ?Blood cultures are incubated for [...] performance characteristics have been verified by the [facility] Microbiology Laboratory. For questions about this culture, contact the Microbiology Laboratory at [phone]. Interpretive data was last revised on 24. us Shara Yates DO LAB MICROBIOLOGY - GEN ERAL ORDERABLES Final Result Performing Organization Address [facility] Co de Phone Number [facility] ([place]) 1 [place] [address] * Troponin T high-sensitivity 6-hour (05/02/2024 11:01 AM [employer] TEACHER) Trop T hs <6 <=14 ng/L Comment: Interpretive Data For further hscTnT resources including the diagnostic algorithm and an aid in interpretation, copy and paste this link: https://nrl.[employer].org/show/hsTrop Current Interpretive Data last revised 2020. Trop T hs delta 0 ng/L [facility] ([place]) Trop T hs interp Insignificant [facility] ([place]) Blood 05/02/2024 11:0 1 AM [employer]UC[employer] TEACHER 05/02/2024 11:11 AM [employer]UCATION TEACHER us Guille Wall MD LAB BLOOD ORDERABLES Final Resu lt Performing Organization Address [facility] Co de Phone Number [facility] ([place]) 1 [place] [address] * Troponin T high-sensitivity 2-hour (05/02/2024 6:37 AM [employer]UC[employer] TEACHER) Trop T hs <6 <=14 ng/L Comment: Interpretive Data For further hscTnT resources including the diagnostic algorithm and an aid in interpretation, copy and paste this link: https://nrl.[employer].org/show/hsTrop Current Interpretive Data last revised 2020. Trop T hs delta 0 ng/L [facility] ([place]) Trop T hs interp Insignificant [facility] ([place]) Blood 05/02/2024 6:37 AM [employer]UCATION TEACHER 05/02/2024 7:06 AM [employer]UCATION TEACHER Guille Wall MD LAB BLOOD ORDERABLES Final Resu lt Performing Organization Address City/[facility] Co de Phone Number [facility] ([place]) 1 [facility] [place] [address] * Troponin T high-sensitivity series (baseline, 2hr, 4hr, 6hr) (05/02/2024 4:17 AM [employer]UCATION TEACHER) Trop T hs <6 <=14 ng/L Comment: Interpretive Data For further hscTnT resources including the diagnostic algorithm and an aid in interpretation, copy and paste this link: https://nrl.testcatalog.org/show/hsTrop Current Interpretive Data last revised 2020. Blood 05/02/2024 4:17 AM [employer]UCATION TEACHER 05/02/2024 4:40 AM [employer]UCATION TEACHER Guille Wall MD LAB BLOOD ORDERABLES Final Resu lt Performing Organization Address [facility] de Phone Number [facility] ([place]) 1 [facility] [place] [address] * ECG 12 lead (05/02/2024 2:17 AM [employer]UCATION TEACHER) 05/02/2024 2:17 AM [employer] EDUCATION TEACHER Narrative [facility] - 05/02/2024 7:39 AM [employer]UCATION TEACHER Vent Rate: 73 bpm RR Interval: 816 msec MT Interval: 180 msec QRS Duration: 84 msec QT Interval: 397 msec QTC Interval: 423 msec P-R-T [place]: 40 - -21 - 31 degrees IMPRESSION: SINUS RHYTHM WITH SINUS ARRHYTHMIA BORDERLINE LEFT AXIS DEVIATION [QRS AXIS < -20] BORDERLINE ECG Electronically Signed By: Kwaku Blanco MD Guille Wall MD ECG ORDERABLES Final Result Performing Organization Address [facility] Co de Phone Number [employer] [facility] * US Abdomen Limited (05/01/2024 3:50 PM [employer]UCATION TEACHER) Anatomical Region Laterality Modality Abdomen N/A Ultrasound 05/01/2024 5:06 PM [employer]UCATION TEACHER Narrative 05/01/2024 5:08 PM [employer] EDUC[employer] TEACHER EXAM DESCRIPTION: ?? US ABDOMEN LIMITED REASON [...] PM T: ??05/01/2024 5:08 PM Report ID: [id number] Reading Location: ??[id number] Procedure Note Boyd Caldwell MD - 05/01/2024 [...] 05/01/2024 5:08 PM - Electronically signed by oByd Caldwell M.D. KT: KARINA Report ID: [id number] Reading Location: [id number] Shara Yates DO IMG US PROCEDURES Maeve l Result * aPTT (05/01/2024 2:50 PM [employer]UC[employer] TEACHER) aPTT 34 28 - 38 sec [facility] ([place]) Comment: Interpretive Data Heparin therapeutic range: 66.0 - 100.0 seconds. Range based on correlation with therapeutic heparin activity range of 0.3 - 0.7 Units/mL. Current interpretive data was last revised on 2023. Blood 05/01/2024 2:50 PM [employer]UC[employer] TEACHER 05/01/2024 3:05 PM [employer] EDUCATION TEACHER [facility] LAB BLOOD ORDERABLES F inal Result [facility]IE [facility] ([place]) 1 [facility] [place] [address] * (ABNORMAL) Protime-INR (05/01/2024 2:50 PM [employer]UC[employer] TEACHER) PT 14.9(H) 9.7 - 13.0 sec [facility] ([place]) INR 1.37(H) 0.90 - 1.20 [facility] ([place]) Comment: Interpretive data Oral anticoagulant therapeutic ranges: Venous thromboembolism prophylaxis or treatment: 2.0-3.0 CARDIOLOGY Standard range: 2.0-3.0 High-intensity range: 2.5-3.5 Refer to indication-specific guidelines for appropriate target ranges for prosthetic heart valve replacement. Current interpretive data was last revised on 2019. Blood 05/01/2024 2:50 PM [employer]UCATION TEACHER 05/01/2024 3:05 PM [employer] SPECIAL EDUCATION TEACHER [facility] LAB BLOOD ORDERABLES F inal Result [facility] 1 [facility] [place] [address] * (ABNORMAL) Urinalysis reflex to microscopic and culture Urine (05/01/2024 10:44 AM [employer]UCATION TEACHER) Color, ur Yellow Yellow Clarity, ur Clear Clear [facility] ([place]) Specific gravity, ur 1.017 1.003 - 1.030 [...] tendency for uric acid stone formation. Source: [facility] Current Interpretive Data was last [...] [facility] ([place]) Urine 05/01/2024 10:4 4 AM [employer]UCATION TEACHER 05/01/2024 10:50 AM [employer]UCATION TEACHER Shara Yates DO LAB MICROBIOLOGY - GEN ERAL ORDERABLES Final Result [facility] ([place]) 1 [facility] Department [place] [address] * (ABNORMAL) Urinalysis, microscopic only (05/01/2024 10:44 AM [employer] TEACHER) WBC, ur 0-5 0 - 5 /HPF RBC, ur 0-2 0 - 2 /HPF [facility] ([place]) Epithelial cells, squamous, ur 11-20(A) 0 - 5 /HPF [facility] ([place]) Bacteria, ur Trace(A) [facility] ([place]) Mucous, ur Present(A) [facility] ([place]) Culture Reflex Comment Reflex conditions for urine culture (WBC >10) not met. [facility] ([place]) Urine 05/01/2024 10:4 4 AM [employer]UCATION TEACHER 05/01/2024 10:50 AM [employer] EDUCATION TEACHER Shara Yates DO LAB URINE ORDERABLES F inal Result [facility] ([place]) 1 [facility] Department [place] [address] * Respiratory pathogen panel Nasopharyngeal (05/01/2024 10:04 AM [employer] TEACHER) Pathologist [facility] Influenza A RNA Not Detected Not Detected Comment:Testing performed by : [facility], [address] [place] [address], [id number] Influenza B RNA Not Detected Not Detected [facility] ([place]) Comment:Testing performed by : [facility], [address] [place] [address], [id number] RSV RNA Not Detected Not Detected [facility] ([place]) Comment:Testing performed by : [facility], [address] [place] [address], [id number] COVID-19 RNA Not Detected Not Detected [facility] ([place]) Comment:Testing performed by : [facility], [address] [place] [address]., [id number] Coronavirus 229E RNA Not Detected Not Detected [facility] ([place]) Comment:Testing performed by : [address], [address] Coronavirus HKU1 RNA Not Detected Not Detected [facility] ([place]) Comment:Testing performed by : [facility], [address] [place] [address]., [id number] Coronavirus NL63 RNA Not Detected Not Detected [facility] ([place]) Comment:Testing performed by : [facility], [address] [place] [address]., [id number] Coronavirus OC43 RNA Not Detected Not Detected [facility] ([place]) Comment:Testing performed by : [address], [address] Adenovirus DNA Not Detected Not Detected [facility] ([place]) Comment:Testing performed by : [address], [address] Metapneumovirus RNA Not Detected Not Detected [facility] ([place]) Comment:Testing performed by : [address], [address] Rhinovirus/Enterov irus RNA Not Detected Not Detected [facility] ([place]) Comment:Testing performed by : [facility], [address] [place] [address]., [id number] Parainfluenza 1 RNA Not Detected Not Detected [facility] ([place]) Comment:Testing performed by : [facility], [address] [place] [address]., [id number] Parainfluenza 2 RNA Not Detected Not Detected [facility] ([place]) Comment:Testing performed by : [facility], [address] [place] [address]., [id number] Parainfluenza 3 RNA Not Detected Not Detected [facility] ([place]) Comment:Testing performed by : [facility], [address] [place] [address]., [id number] Parainfluenza 4 RNA Not Detected Not Detected [facility] ([place]) Comment:Testing performed by : [facility], [address] [place] [address]., [id number] B. pertussis DNA Not Detected Not Detected [facility] ([place]) Comment:Testing performed by : [facility], [address] [place] [address]., [id number] B. parapertussis DNA Not Detected Not Detected [facility] ([place]) Comment:Testing performed by : [facility], [address] [place] [address]., [id number] C. pneumoniae DNA Not Detected Not Detected [facility] ([facility]) Comment:Testing performed by : [facility], [address] [place] [address]., [id number] M. pneumoniae DNA Not Detected Not Detected [facility] ([place]) Comment: Interpretive Data The Hartman Wright FilmArray Respiratory Panel (RP2.1) assay is a [...] assay has FDA clearance for testing of MORTGAGE ADVISOR swabs. ??The performance characteristics of this assay have been determined by [facility]. Current interpretive data was last revised on 2020. Testing performed by: [facility], [address] [place] [address]., [id number] Nasopharyngeal 05/01/2024 10 :04 AM [employer] 05/01/2024 11:23 AM [employer] Narrative AMIE RENAE ([place]) - 05/01/2024 12:24 PM [employer] Is the Patient experiencing symptoms consistent with COVID?->Yes Surveillance testing for transplant patient?->No Shara Yates DO LAB MICROBIOLOGY - GEN ERAL ORDERABLES Final Result AMIE RENAE ([place]) 1 [facility] Department [place] [address] CH * XR CHEST 1 VIEW PORTABLE (05/01/2024 9:53 AM [employer]) Anatomical Region Laterality Modality Body, Chest N/A Computed Radiogr aphy 05/01/2024 12:2 9 PM [employer]ER Narrative 05/01/2024 12:30 PM [employer] TE[employer]ER EXAM DESCRIPTION: ?? XR CHEST 1 VIEW [...] PM T: ??05/01/2024 12:30 PM Report ID: [id number] Reading Location: ??[id number] Procedure Note Dong Thorne MD - 05/01/2024 [...] Dong Thorne M.D. RB: RB Report ID: [id number] Reading Location: [id number] Shara Yates DO IMG XR PROCEDURES Maeve l Result * Lactate (05/01/2024 8:52 AM [employer]) Lactate 1.3 0.7 - 2.0 mmol/L Blood 05/01/2024 8:52 AM [employer] TE[employer]ER 05/01/2024 9:01 AM [employer] TE[employer]ER Shara Yates DO LAB BLOOD ORDERABLES F inal Result AMIE RENAE ([place]) 1 [facility] Department [place] [address] * eGFR (05/01/2024 8:52 AM [employer]) eGFR >90 >=60 mL/min/1. 73 m2 Comment: [...] last reviewed 2021. Blood 05/01/2024 8:52 AM [employer] TEACHER 05/01/2024 9:40 AM [employer] TE[employer]ER Shara Yates DO LAB BLOOD ORDERABLES F inal Result [facility] ([place]) 1 [facility] [place] [address] * (ABNORMAL) CBC without differential (05/01/2024 8:52 AM [employer] TE[employer]ER) Pathologist [facility] WBC 6.4 3.8 - 9.9 K/cumm Hgb [...] [facility] ([place]) Blood 05/01/2024 8:52 AM [employer] TEACHER 05/01/2024 9:40 AM [employer] TEACHER Shara Yates DO LAB BLOOD ORDERABLES F inal Result Performing Organization Address City/[facility]/ZIP Co de Phone Number [facility] ([place]) 1 [facility] [place] [address] * (ABNORMAL) Comprehensive metabolic panel (05/01/2024 8:52 AM [employer] TEACHER) Sodium 132(L) 135 - 145 mmol/L Potassium, [...] [facility] ([place]) Blood 05/01/2024 8:52 AM [employer] TEACHER 05/01/2024 9:40 AM [employer] TEACHER Shara Yates DO LAB BLOOD ORDERABLES F inal Result [facility] ([place]) 1 [facility] [place] [address] * (ABNORMAL) Blood culture Blood (04/30/2024 8:47 PM [employer] TEACHER) Pathologist [facility] Direct Specimen Exam Molecular Analysis: Methicillin-suscep tible Staphylococcus aureus (MSSA) detected by the maxx ePlex BCID-GP panel. This test does not exclude the possibility of a mixed bacterial infection. Notification of: Methicillin-suscep tible Staphylococcus aureus (MSSA) called to and read back by: Latrice Wellington MLS ([phone]) on 05/02/2024 01:41:52 by: Fritz Kebede MLS Comment:Testing performed by : [facility], [address] [place] [address]., [id number] Direct Specimen Exam Stain: Gram Positive Cocci in clusters Time to culture positivity (anaerobic media): 22.7 hours Notification of: Gram Positive Cocci in clusters called to and read back by: Latrice Wellington MLS ([phone]) on 05/01/2024 23:41:23 by: Fritz Kebede MLS Test result called to and read back by fabio stephenson on 05/02/2024 00:23:23 by latrice RENAE ([place]) Comment:Testing performed by : [facility], [address] [place] [address]., [id number] Report Final Report: Staphylococcus aureus Methicillin susceptible (MSSA) by penicillin binding protein 2a (PBP2a) testing. (.) AMIE RENAE ([place]) Comment:Testing performed by : [facility], [address] [place] [address]., [address] Organism STAPHYLOCOCCUS AUREUS AMIE RENAE ([place]) Blood 04/30/2024 8:47 PM [employer] TE[employer]ER 05/01/2024 Kris RENAE ([place]) - 05/06/2024 1:15 PM [employer] TEACHER From a different site than #1. Collection->Peripheral [...] performance characteristics have been verified by the [facility] Microbiology Laboratory. For questions about this culture, contact the Microbiology Laboratory at [phone]. Interpretive data was last revised on 24. [...] GENERAL LINDEN LARSEN Final Result AMIE RENAE [place] 1 [facility] Department [place] [address] * Blood culture Blood (04/30/2024 8:47 PM [employer] TEACHER) Report Final Report: No growth Comment:Testing performed by : [facility], 1 [facility], [place]., [address] Blood 04/30/2024 8:47 PM [employer]UC[employer] TEACHER 05/01/2024 Narrative AMIE RENAE ([place]) - 05/05/2024 7:00 AM [employer] TEACHER Collection->Peripheral 1. ?Blood cultures are incubated for [...] performance characteristics have been verified by the [facility] Microbiology Laboratory. For questions about this culture, contact the Microbiology Laboratory at [phone]. Interpretive data was last revised on 24. us Guille Wall MD LAB MICROBIOLOGY - [facility] Final Result AMIE RENAE ([place]) 1 [facility] Department [place] [address] * MRI Lumbar Spine WO Contrast (04/30/2024 2:26 PM [employer] TE[employer]ER) Anatomical Region Laterality Modality Spine N/A Magnetic Resonan ce 04/30/2024 4:06 PM [employer] TEACHER Narrative 04/30/2024 4:12 PM [employer] TEACHER EXAM DESCRIPTION: ?? MRI LUMBAR SPINE WO [...] PM T: ??04/30/2024 4:12 PM Report ID: [id number] Reading Location: ??[id number] Procedure Note Bo Travis MD - 04/30/2024 [...] Relevant portions of CT abdomen pelvis with [id number]/2025. FINDINGS: SEGMENTATION: No lumbosacral transitional anatomy. The [...] Bo Travis M.D. DORIS: DORIS Report ID: [id number] Reading Location: [id number] Zee Khan MD [facility] MRI PROCEDURES Final Result * CT Abdomen Pelvis W Contrast (04/29/2024 9:22 AM [employer] TEACHER) Anatomical Region Laterality Modality Body N/A Computed Tomogra phy 04/29/2024 12:5 1 PM [employer] TEACHER Narrative 04/29/2024 12:58 PM [employer] TEACHER EXAM DESCRIPTION: ?? CT ABDOMEN PELVIS W [...] PM T: ??04/29/2024 12:58 PM Report ID: [id number] Reading Location: ??[id number] Procedure Note Dave Chaudhry MD - 04/29/2024 [...] Alphonso Chaudhry M.D. DORIS: DORIS Report ID: [id number] Reading Location: [place] [address] Zee Khan MD IMG CT PROCEDURES Final Result * eGFR (04/29/2024 4:53 AM [employer] TEACHER) eGFR >90 >=60 mL/min/1. 73 m2 Comment: [...] last reviewed 2021. Blood 04/29/2024 4:53 AM [employer] TEACHER 04/29/2024 5:18 AM [employer] TEACHER us Zee Khan MD LAB BLOOD ORDERABLES Fin al Result [facility] ([place]) 1 [facility] Department [place] [address] * Differential, auto (04/29/2024 4:53 AM [employer] TEACHER) Neutrophil abs 2.2 1.5 - 6.5 K/cumm [...] revised on 2017. Blood 04/29/2024 4:53 AM [employer] TEACHER 04/29/2024 5:17 AM [employer]UCATION TEACHER us Zee Khan MD LAB BLOOD ORDERABLES Fin al Result [facility] ([place]) 1 [facility] Department [place] [address] * (ABNORMAL) CBC with auto differential (04/29/2024 4:53 AM [employer]ATION TEACHER) WBC 4.4 3.8 - 9.9 K/cumm Hgb [...] ([place]) MCHC 33.4 32.3 - 35.7 g/dL [facility] ([place]) RDW CV 13.4 11.1 - 14.9 % [facility] ([place]) RDW SD 47.5 35.7 - 48.1 fL [facility] ([place]) NRBC abs 0.00 0.00 - 0.01 K/cumm [facility] ([place]) Blood 04/29/2024 4:53 AM [employer]UCATION TEACHER 04/29/2024 5:17 AM [employer]UCATION TEACHER Zee Khan MD LAB BLOOD ORDERABLES Fin al Result AMIE [facility] ([place]) 1 [facility] [place] [address] * (ABNORMAL) Phosphorus (04/29/2024 4:53 AM [employer]UC[employer] TEACHER) Phosphorus, pl 4.6(H) 2.3 - 4.5 mg/dL Blood 04/29/2024 4:53 AM [employer]UCATION TEACHER 04/29/2024 5:18 AM [employer]UCATION TEACHER Zee Khan MD LAB BLOOD ORDERABLES Fin al Result AMIE RENAE ([place]) 1 [facility] [place] [address] * Magnesium (04/29/2024 4:53 AM [employer]UCATION TEACHER) Magnesium 1.6 1.4 - 2.5 mg/dL Blood 04/29/2024 4:53 AM [employer] EDUCATION TEACHER 04/29/2024 5:18 AM [employer]UCATION TEACHER Zee Khan MD LAB BLOOD ORDERABLES Fin al Result AMIE RENAE ([place]) 1 [facility] [place] [address] * Hepatic function panel (04/29/2024 4:53 AM [employer]UCATION TEACHER) Bilirubin, total 0.3 0.1 - 1.2 mg/dL Bilirubin, direct 0.1 0.1 - 0.3 mg/dL [facility] ([place]) Protein, pl 6.9 6.5 - 8.5 g/dL [facility] ([place]) Albumin 3.6 3.5 - 5.0 g/dL [facility] ([place]) Alk phos 89 40 - 130 Units/L [facility] ([place]) ALT 16 7 - 45 Units/L [facility] AST 27 10 - 45 Units/L [facility] ([place]) Blood 04/29/2024 4:53 AM [employer]UCATION TEACHER 04/29/2024 5:18 AM [employer]UCATION TEACHER us Zee Khan MD LAB BLOOD ORDERABLES Fin al Result [facility] ([place]) 1 [facility] Department [place] [address] * Basic metabolic panel (04/29/2024 4:53 AM [employer]UC[employer] TEACHER) Sodium 139 135 - 145 mmol/L Potassium, pl 3.8 3.3 - 4.9 mmol/L [facility] ([place]) Chloride 104 97 - 110 mmol/L [facility]) CO2 25 22 - 32 mmol/L [facility] ([place]) Anion gap 10 2 - 15 mmol/L [facility] ([place]) BUN 23 6 - 25 mg/dL [facility] ([place]) Creatinine 0.61 0.60 - 1.10 mg/dL [facility] Glucose 85 70 - 199 mg/dL [facility] ([place]) Comment: Interpretive Data Fasting glucose [...] [facility] ([place]) Blood 04/29/2024 4:53 AM [employer]UC[employer] TEACHER 04/29/2024 5:18 AM [employer]UCATION TEACHER Zee Khan MD LAB BLOOD ORDERABLES Fin al Result Performing Organization Address City/[facility] Co de Phone Number AMIE [facility] ([place]) 1 [facility] [place] [address] * Lipase (04/28/2024 1:16 PM [employer]UC[employer] TEACHER) Lipase 90 10 - 99 Units/L Blood 04/28/2024 1:16 PM [employer]UCATION TEACHER 04/28/2024 1:47 PM [employer]UCATION TEACHER Zee Khan MD LAB BLOOD ORDERABLES Fin al Result Performing Organization Address [facility] de Phone Number [facility] 1 [facility] [place] [address] * Hepatic function panel (04/28/2024 1:16 PM [employer]UCATION TEACHER) Bilirubin, total 0.3 0.1 - 1.2 mg/dL [...] Moderately Hemolyzed Specimen Blood 04/28/2024 1:16 PM [employer]UCATION TEACHER 04/28/2024 2:18 PM [employer]UCATION TEACHER us Zee Khan MD LAB BLOOD ORDERABLES Fin al Result Performing Organization Address [facility] Phone Number [facility] ([place] 1 [facility] Department of Laboratories [place] [id number] * eGFR (04/26/2024 8:41 AM [employer] TEACHER) eGFR >90 >=60 mL/min/1. 73 m2 Comment: [...] last reviewed 2021. Blood 04/26/2024 8:41 AM [employer] EDUCATION TEACHER 04/26/2024 8:57 AM [employer] EDUCATION TEACHER us Maddie White MD LAB BLOOD ORDERABLES Maeve l Result [facility] ([place]) 1 [facility] Department [place] [address] * (ABNORMAL) CBC without differential (04/26/2024 8:41 AM [employer]UCATION TEACHER) Pathologist [facility] WBC 6.4 3.8 - 9.9 K/cumm Hgb [...] [facility] ([place]) Blood 04/26/2024 8:41 AM [employer] EDUCATION TEACHER 04/26/2024 8:57 AM [employer] EDUCATION TEACHER us Maddie White MD LAB BLOOD ORDERABLES Maeve l Result [facility] ([place]) 1 [facility] Department [place] [address] * Comprehensive metabolic panel (04/26/2024 8:41 AM [employer] EDUCATION TEACHER) Pathologist [facility] Sodium 138 135 - 145 mmol/L Potassium, [...] [facility] ([place]) Blood 04/26/2024 8:41 AM [employer] EDUCATION TEACHER 04/26/2024 8:57 AM [employer] EDUCATION TEACHER us Maddie White MD LAB BLOOD ORDERABLES Maeve lopez Result [facility] ([place]) 1 [facility] Department of Laboratories [place], [place] [id number] * eGFR (04/25/2024 8:53 AM [employer] TEACHER) eGFR >90 >=60 mL/min/1. 73 m2 Comment: [...] last reviewed 2021. Blood 04/25/2024 8:53 AM [employer] EDUCATION TEACHER 04/25/2024 8:55 AM [employer]UCATION TEACHER us Chang Mckeon MD LAB BLOOD ORDERABLE S Final Result AMIE RENAE ([place]) 1 [facility] Department [place] [address] * (ABNORMAL) Differential, auto (04/25/2024 8:53 AM [employer]UCATION TEACHER) Neutrophil abs 6.3 1.5 - 6.5 K/cumm Imm gran abs 0.0 0.0 - 0.1 K/cumm [facility] ([place]) Lymphocyte abs 0.6(L) 0.8 - 3.3 K/cumm [facility] ([place]) Monocyte abs 0.5 0.2 - 0.8 K/cumm [facility] ([place]) Eosinophil abs 0.0 0.0 - 0.5 K/cumm [...] revised on 2017. Blood 04/25/2024 8:53 AM [employer]UCATION TEACHER 04/25/2024 8:55 AM [employer]UCATION TEACHER us Chang Mckeon MD LAB BLOOD ORDERABLE S Final Result AMIE RENAE ([place]) 1 [facility] Department [place] [address] * (ABNORMAL) CBC with auto differential (04/25/2024 8:53 AM [employer]UC[employer] TEACHER) WBC 7.4 3.8 - 9.9 K/cumm Hgb 14.8 11.9 - 15.5 g/dL [facility] ([facility] Hct 42.1 35.6 - 45.5 % [facility] ([place]) Plt 123(L) 150 - 400 K/cumm [facility] ([place]) MPV 10.9 9.1 - 12.3 fL [facility] RBC 4.53 3.90 - 5.20 M/cumm [facility] ([place]) MCV 92.9 81.3 - 96.4 fL [facility] ([place]) MCH 32.7 27.1 - 33.3 pg [facility] ([place]) MCHC 35.2 32.3 - 35.7 g/dL [facility] ([place] RDW CV 13.1 11.1 - 14.9 % [facility] ([place]) RDW SD 43.8 35.7 - 48.1 fL [facility] ([place] NRBC abs 0.00 0.00 - 0.01 K/cumm [facility] Blood 04/25/2024 8:53 AM [employer]UC[employer] TEACHER 04/25/2024 8:55 AM [employer]UCATION TEACHER us Chang Mckeon MD LAB BLOOD ORDERABLE S Final Result [facility] ([place]) 1 [facility] Department of Laboratories [place] [id number] * aPTT (04/25/2024 8:53 AM [employer]UC[employer] TEACHER) aPTT 29 28 - 38 sec [facility] ([place]) Comment: Interpretive Data Heparin therapeutic range: 66.0 - 100.0 seconds. Range based on correlation with therapeutic heparin activity range of 0.3 - 0.7 Units/mL. Current interpretive data was last revised on 2023. Blood 04/25/2024 8:53 AM [employer]UC[employer] TEACHER 04/25/2024 5:58 PM [employer]UC[employer] TEACHER us Maddie White MD LAB BLOOD ORDERABLES Maeve l Result Performing Organization Address City/[facility]/ZIP Co de Phone Number AMIE RENAE ([place]) 1 [place] [address] * Protime-INR (04/25/2024 8:53 AM [employer]UC[employer] TEACHER) PT 11.5 9.7 - 13.0 sec [facility] ([place]) INR 1.06 0.90 - 1.20 [facility] ([place]) Comment: Interpretive data Oral anticoagulant therapeutic ranges: Venous thromboembolism prophylaxis or treatment: 2.0-3.0 CARDIOLOGY Standard range: 2.0-3.0 High-intensity range: 2.5-3.5 Refer to indication-specific guidelines for appropriate target ranges for prosthetic heart valve replacement. Current interpretive data was last revised on 2019. Blood 04/25/2024 8:53 AM [employer]UC[employer] TEACHER 04/25/2024 5:58 PM [employer] EDUCATION TEACHER us Maddie White MD LAB BLOOD ORDERABLES Maeve l Result Performing Organization Address [facility] Co de Phone Number AMIE RENAE ([place]) 1 [facility] [place] [address] * Magnesium (04/25/2024 8:53 AM [employer]UC[employer] TEACHER) Magnesium 1.4 1.4 - 2.5 mg/dL Blood 04/25/2024 8:53 AM [employer]UCATION TEACHER 04/25/2024 9:56 AM [employer]UCATION TEACHER us Chang Mckeon MD LAB BLOOD ORDERABLE S Final Result Performing Organization Address City/[facility] Co de Phone Number AMIE [facility] ([place]) 1 [facility] [place] [address] * (ABNORMAL) Ethanol (04/25/2024 8:53 AM [employer]UC[employer] TEACHER) Ethanol 59(H) <=10 mg/dL Comment: Interpretive Data Legal limit of intoxication > or = 80 mg/dL Levels > or = 400 mg/dL are potentially TOXIC. Current interpretive data was last revised on 2018. Blood 04/25/2024 8:53 AM [employer]UCATION TEACHER 04/25/2024 8:55 AM [employer]UCATION TEACHER us Chang Mckeon MD LAB BLOOD ORDERABLE S Final Result [facility] ([place]) 1 [facility] Department [place] [address] * (ABNORMAL) Comprehensive metabolic panel (04/25/2024 8:53 AM [employer]UC[employer] TEACHER) Sodium 134(L) 135 - 145 mmol/L Potassium, [...] Hemolyzed S pecimen Blood 04/25/2024 8:53 AM [employer]UCATION TEACHER 04/25/2024 8:55 AM [employer]UCATION TEACHER us Chang Mckeon MD LAB BLOOD ORDERABLE S Final Result [facility] ([place]) 1 [facility] Department [place] [address] * eGFR (04/25/2024 8:33 AM [employer] TEACHER) eGFR >90 >=60 mL/min/1. 73 m2 Comment: [...] last reviewed 2021. Blood 04/25/2024 8:33 AM [employer]UCATION TEACHER 04/25/2024 8:41 AM [employer]UCATION TEACHER us Jesenia Mckeon MD LAB BLOOD ORDERABLES Final Re sult AMIE RENAE ([place]) 1 [facility] Department [place] [address] * (ABNORMAL) Drugs of Abuse Screen, Urine without Confirmation (04/25/2024 8:33 AM [employer] TEACHER) Amphetamine, ur Screen Positive, presumptive (A) CutOff [...] revised on 2017. Urine 04/25/2024 8:33 AM [employer]UC[employer] TEACHER 04/25/2024 8:43 AM [employer]UC[employer] TEACHER Narrative [facility] ([place]) - 04/25/2024 9:03 AM [employer]UC[employer] TEACHER Drug of Abuse screening is performed by immunoassay for medical purposes only. ??This is not to be used for Pain Management purposes. us Jesenia Mckeon MD LAB URINE ORDERABLES Final Re sult [facility] ([place]) 1 [facility] [place] [address] * (ABNORMAL) CBC without differential (04/25/2024 8:33 AM [employer]UC[employer] TEACHER) WBC 7.3 3.8 - 9.9 K/cumm Hgb [...] [facility] ([place]) Blood 04/25/2024 8:33 AM [employer]UC[employer] TEACHER 04/25/2024 8:41 AM [employer]UCATION TEACHER us Jesenia Mckeon MD LAB BLOOD ORDERABLES Final Re sult [facility] ([place]) 1 [facility] Department [place] [address] * (ABNORMAL) Comprehensive metabolic panel (04/25/2024 8:33 AM [employer]UCATION TEACHER) Sodium 135 135 - 145 mmol/L Potassium, [...] Hemolyzed S pecimen Blood 04/25/2024 8:33 AM [employer] EDUCATION TEACHER 04/25/2024 8:41 AM [employer] EDUCATION TEACHER us Jesenia Mckeon MD LAB BLOOD ORDERABLES Final Re sult [facility] ([place]) 1 [facility] [place] [address] from Last 3 Months Insurance [employer] BETTER [facility] [place] Advance Directives For more information, please contact: [phone] * Full Code (Latest Code Status on File) Date Activated Date Inactivated Comments 04/25/2024 5:41 PM 05/07/2024 7:44 PM Care Teams Team Leader Surgery Relationship Specialty Start Date End Date Bladimir Crowder MD [address] [place] [id number] PCP - General Family Medicine 04/25/24
--- OUTSIDE RECORDS SUMMARY | 2024-05-14 12:26 | XMS_ITS | Encounter Summary ---
Author Organization [facility] Address Formerly [facility] [place] [place] [address] [place] [address] Care Team Providers Care Relationship Consultant Name Role Phone Ruma Meade MD Primary Care Provider +1- [phone] Reason for Referral * Sleep Lab (Routine) - New Request Specialty Diagnoses / Procedures Referred By Aaron dejesus Referred To Contact Diagnoses Hypersomnia Procedures Diagnostic PSG (34531, [id number]) [facility] [address] [place] [address] Phone: tel: Referral ID Status Reason Start Date Expiration Date V isits Requested Visits Authorized [id number] New Request 05/09/2024 06/09/2025 1 1 [facility] Encounter Details Date Type Department Care Team (Late st Contact Info) Description 05/09/[address] [facility] [address] [place] [address] Verna Raymundo MD [address] [place] [address] Social History Tobacco Use Types [...] place to sleep or slept in a usp (including now)? Yes 01/11/2023 Comments No Sex [...] st Contact Info) Description 05/26/2024 10:00 PM [facility] Hospital Encounter [facility] [address] [place] [address] Verna Raymundo MD [address] [place] [phone] Scheduled Orders Name Type Priority Associated Diagnoses Orde r Schedule Diagnostic PSG (20565, 90452) Sleep Center Routine Hypersomnia Expected: 05/09/2024, Expires: 05/09/2025 documented as of this encounter Visit Diagnoses Diagnosis Hypersomnia- Primary Hypersomnia, unspecified documented in this encounter Care Teams Relationship Consultant Relationship Specialty Start Date End Date Ruma Meade MD [address] [place] [phone] PCP - General FAMILY PRACTICE 03/18/24 documented as of this encounter
== END 2024-05-14 11:04 | disposition home or self-care (01) ==
LOC: CHSIMG 11:06
PROVIDERS: PCP Family Medicine; Visit Provider Emergency Medicine
DX: I80.8 Phlebitis and thrombophlebitis of other sites (principal)
CPT/HCPCS: 93971

== ENCOUNTER 2024-05-17 05:00 | Emergency (ER) | payer OTHER, SELFPAY ==
[2024-05-17 05:01] VITALS: BP 163/103; PULSE 78; RESP 18; TEMP 36.6; O2SAT 98
--- OUTSIDE RECORDS SUMMARY | 2024-05-17 05:02 | XMS_ITS | Encounter Summary ---
Author Organization [facility] Address [address] [place] [address] Care Team Providers Care Drum Tester Name Role Phone Ruma Meade MD Primary Care Provider +1- [phone] Reason for Referral * Sleep Lab (Routine) - Pending Review Specialty Diagnoses / Procedures Referred By Aaron dejesus Referred To Contact Diagnoses Hypersomnia Procedures Diagnostic PSG (38466, 28595) [facility] [address] [place] [address] Phone: tel: [facility] Parent Location [address] [place] [address] Phone: tel: fax: Referral ID Status Reason Start Date Expiration Date Visits Requested Visits Authorized [id number] Pending Review Sleep Studies 05/09/2024 06/09/2025 1 1 [facility] Encounter Details Date Type Department Care Team (Late st Contact Info) Description 05/09/2024 Transcribe Orders [facility] [address] [place] [address] Verna Raymundo MD [address] [place] [phone] Social History Tobacco Use Types [...] Assessment Author Status No 01/11/2023 6:28 PM CDT Layla Yee RN Active * Are you blind or do you have serious difficulty seeing, even when wearing glasses? Answer Date of Assessment Author Status No 01/11/2023 6:28 PM Layla Cates RN Active * Do you have serious [...] st Contact Info) Description 05/26/2024 10:00 PM [facility] Hospital Encounter [facility] [address] [place] [address] Verna Raymundo MD [address] [place] [phone] Scheduled Orders Name Type Priority Associated Diagnoses Orde r Schedule Diagnostic PSG (63839, 25264) Sleep Center Routine Hypersomnia Expected: 05/09/2024, Expires: 05/09/2025 documented as of this encounter Visit Diagnoses Diagnosis Hypersomnia- Primary Hypersomnia, unspecified documented in this encounter Care Teams Drum Tester Relationship Specialty Start Date End Date Ruma Meade MD [address] [place] [phone] PCP - General FAMILY PRACTICE 03/18/24 documented as of this encounter
--- OUTSIDE RECORDS SUMMARY | 2024-05-17 05:02 | XMS_ITS | Clinical Summary ---
Author Organization [facility] Address Formerly [facility] [place] [address] Care Team Providers Care Broker Assistant Name Role Phone Ruma Meade MD Primary Care Provider [phone]- [phone] Allergies No known active allergies Medications gabapentin (NEURONTIN) 300 MG capsule Take 400 mg by mouth 3 (three) times daily. 11/03/2023 Active Active Problems Problem Noted Date Diagnosed Date Alcoholic pancreatitis (HHS/HCC) 01/13/2023 Pancreatitis (HHS/HCC) 01/11/2023 Encounters Date Type Department Care Team Description 05/09/2024 Transcribe Orders [facility] [address] [place] [address] Leticia Khalil MD 04/03/2024 10:03 AM LEGAL AID - 04/03/2024 11:59 PM LEGAL AID Hospital Encounter [facility] [address] [place] [address] Leticia Khalil MD Discharge Disposition: Home or Self Care (Routine Discharge) 04/03/2024 Travel 03/29/2024 9:00 AM LEGAL AID - 03/29/2024 11:59 PM LEGAL AID Hospital Encounter [facility] [address] [place] [address] Bladimir Latham MD Discharge Disposition: Home or Self Care (Routine Discharge) 03/28/2024 2:32 PM LEGAL AID - 03/28/2024 11:59 PM LEGAL AID Hospital Encounter [facility] [address] [place] [address] Leticia Khalil MD Discharge Disposition: Home or Self Care (Routine Discharge) 03/28/[address] [facility] [place] [address] Leticia Khalil MD 03/28/2024 Travel 03/18/2024 3:01 PM LEGAL AID - 03/18/2024 4:40 PM LEGAL AID Emergency [facility] [address] [facility] [place] [address] Chin Cobb DO Abdominal Pain Discharge Disposition: Home or Self Care (Routine Discharge) 03/18/2024 Travel 03/06/[address] [address] Samantha Mayo PA Referral 03/05/2024 9:30 AM LEGAL AID Office Visit [address] [address] Samantha Mayo PA New Patient; Hand Pain (BILATERAL) 03/05/2024 Travel 02/29/2024 Chart Prep [address] [address] Samantha Mayo PA from Last 3 Months [...] Comments Blood Pressure 139/79 03/18/2024 4:25 PM LEGAL AID Pulse 75 03/18/2024 4:25 PM LEGAL AID Temperature 36.4 C (97.5 F) 03/18/2024 3:16 PM LEGAL AID Respiratory Rate 18 03/18/2024 4:25 PM LEGAL AID Oxygen Saturation 98% 03/18/2024 4:25 PM LEGAL AID Inhaled Oxygen Concentration - - Weight 68 kg (150 lb) 03/18/2024 3:16 PM LEGAL AID Height 162.6 cm (5' 4 ) 03/18/2024 3:16 PM LEGAL AID Body Mass Index 25.75 03/18/2024 3:16 PM LEGAL AID Plan of Treatment Upcoming Encounters Date Type Department Care Team (Late st Contact Info) Description 05/26/2024 10:00 PM LEGAL AID Hospital Encounter [facility] [address] [facility] [place] [address] Leticia Khalil MD [address] [place] [address] Health Maintenance Due Date Last Done Comments Colorectal Cancer Screening Colonoscopy (10 Years) 1973 Annual Physical 1976 Hepatitis C 1991 DTaP, Tdap and Td Vaccines ( 1 - Tdap) 1992 Hepatitis B Vaccines (1 of 3 - 19+ 3-dose series) 1992 Zoster Vaccines (1 of 2) 2023 COVID-19 Vaccine (2023-2 5 season) 2023 Influenza Adult (#1) 2024 [...] CHEST WO CON Routine 04/03/2024 10:16 AM LEGAL AID Lung nodule MG SCREENING W BIRGIT LUCIAN DIGI Routine 03/29/2024 10:02 AM LEGAL AID Visit for screening mammogram TBGOLD-TUBERCULOSIS TST CELL MEDIATED IMMUNITY Routine 03/28/2024 2:50 PM LEGAL AID Lung nodule FUNGAL PANEL 1 Routine 03/28/2024 2:50 PM LEGAL AID Lung nodule DRUG SCREEN RAPID STAT 03/18/2024 3:3 5 PM LEGAL AID HC URINALYSIS AUTO W/MICRO STAT 03/18/2024 3:35 PM LEGAL AID ETHANOL STAT 03/18/2024 3:28 PM LEGAL AID MAGNESIUM STAT 03/18/2024 3:28 PM LEGAL AID LIPASE STAT 03/18/2024 3:28 PM LEGAL AID LDH, LACTATE DEHYDROGENASE STAT 03/18/2024 3:28 PM LEGAL AID LACTIC ACID W REFLEX (SEPSIS) STAT 03/18/2024 3:28 PM LEGAL AID COMPREHENSIVE METABOLIC PANEL STAT 03/18/2024 3:28 PM LEGAL AID CBC W/DIFF AUTOMATED STAT 03/18/2024 3:28 PM LEGAL AID from Last 3 Months Results * CT CHEST WO CON (04/03/2024 10:16 AM LEGAL AID) Anatomical Region Laterality Modality Chest Computed Tomogra phy 04/03/2024 12:1 3 PM LEGAL AID Impressions 04/03/2024 3:06 PM LEGAL AID Impression: 1. Right lower lobe pulmonary nodule [...] content of this report. Ordered By: LETICIA KHALIL Interpreted By: Faheem Carcamo MD, 04/03/2024 12:13 PM Narrative 04/03/2024 3:06 PM LEGAL AID [address] [place] [address] Examination: CT CHEST WO CON Clinical Information: [...] Procedure Note Vivek Ellison MD - 04/03/2024 [facility] [address] [place] [address] Examination: CT CHEST WO CON Clinical Information: [...] thecontent of this report. Ordered By: LETICIA KHALIL Interpreted By: Faheem Carcamo MD, 04/03/2024 12:13 PM us Leticia Khalil MD CT Final Result * MG SCREENING W BIRGIT LUCIAN DIGI (03/29/2024 10:02 AM LEGAL AID) Anatomical Region Laterality Modality Breast Bilateral Mammography 03/29/2024 11:5 4 AM LEGAL AID Impressions 03/29/2024 11:55 AM LEGAL AID IMPRESSION: No mammographic evidence of malignancy. Recommendation: 1: Routine Screening Bilateral in 1 Year Assessment: ACR BI-RADS 2 - BENIGN FINDING(S) Ordered By: BLADIMIR LATHAM Interpreted By: Varun Quevedo MD, 03/29/2024 11:54 AM Narrative 03/29/2024 11:55 AM LEGAL AID [address] [place] [address] Examination: Digital screening mammogram with CAD. Clinical history: Asymptomatic patient presents for routine screening. Patient does not recall when or where prior studies may have been performed. New baseline. Comparison: None. Technique: Bilateral digital mammograms. The exam was interpreted with the use of a computer-aided detection (CAD) system. Additional 3-D tomosynthesis images were acquired. Tissue density: There are scattered areas of fibroglandular density. Findings: The breast tissue contains scattered fibroglandular densities. Benign-appearing calcification and benign-appearing intramammary lymph nodes noted. No suspicious mass, microcalcification or area of architectural distortion can be identified. From a mammographic standpoint, routine followup in one year would seem adequate. us Bladimir Latham MD MAMMO Final Resul t * FUNGAL ANTIBODY PANEL (ID) (03/28/2024 2:50 PM LEGAL AID) ASPERGILLUS FLAVUS AB Negative Negative 2:34 PM LEGAL AID [facility] SANCHEZ-CHANT LUPILLO ASPERGILLUS NIGER AB Negative Negative 03/12 2:34 PM LEGAL AID [facility] SANHCEZ-CHANT LUPILLO ASPERGILLUS FUMIGATUS AB Negative Negative 04/02/2024 2:34 PM LEGAL AID [facility] SANCHEZ-CHANT LUPILLO Comment: Interpretive Criteria: Negative: Antibody not detected Positive: Antibody detected A positive result is represented by 1 or more precipitin bands, and may indicate fungus ball, allergic bronchopulmonary aspergillosis (EUSEBIO) or invasive aspergillosis. Generally, the appearance of 3-4 bands indicates either fungus ball or EUSEBIO. BLASTOMYCES AB Negative Negative 04/02/2024 2:34 PM LEGAL AID [facility] SANCHEZ-ORLYT LUPILLO Comment: Interpretive Criteria: Negative: Antibody not detected Positive: Antibody detected A positive result is diagnostic of active or recent blastomycosis and is found in approximately 80% of proven cases of blastomycosis. COCCIDIODES AB (ID) Negative Negative 04/02 2:34 PM LEGAL AID [facility] SANCHEZ-ORLYT LUPILLO Comment: Interpretive Criteria: Negative: Antibody Not Detected Positive: Antibody Detected The immunodiffusion (ID) procedure correlates [...] H AB Negative Negative 04/02/2024 2:34 PM LEGAL AID [facility] SANCHEZRUBEN WESLEY Comment: This immunodiffusion assay is highly [...] the diagnosis of histoplasmosis. Test Performed by [facility] [place], [facility], [id number] [place] [address] Shawn Christianson M.D., Ph.D., Director of Laboratories , [facility] [id number] HISTOPLASMA CAPSULATUM M AB Negative Negative 04/02/2024 2:34 PM LEGAL AID [facility] SANCHEZTHERESA WESLEY 03/28/2024 2:50 PM LEGAL AID [facility] Nilo Khalil MD LABORATORY Final Result [facility] [address] , * QUANTIFERON TBGOLD TUBERCULOSIS TEST (03/28/2024 2:50 PM LEGAL AID) TB1 AG MINUS NIL 0.03 IU/ML 03/29/20 1:43 PM LEGAL AID [facility] TB2 AG MINUS NIL 0.01 IU/ML 03/29/20 24 1:43 PM LEGAL AID [facility] TB QUANTIFERON NEGATIVE NEGATIVE 03/29/2024 1:43 PM LEGAL AID [facility] TB INTERPRETATION M. tuberculosis infection unlikely but cannot be excluded especially when any illness is consistent with TB disease and/or likelihood of progression to disease is increased. In patients at high risk to M. tuberculosis infection, a second test should be considered. 03/29/2024 1:43 PM LEGAL AID [facility] 03/28/2024 2:50 PM LEGAL AID Leticia Khalil MD LABORATORY Final Result [facility] [address] [place] [address], [place] [phone] [id number] * (ABNORMAL) DRUG SCREEN RAPID (03/18/2024 3:35 PM LEGAL AID) CANNABINOIDS SCREEN (U) POSITIVE(A) NEGATIVE 03/18/2024 3:57 PM LEGAL AID [facility] PHENCYCLIDINE PCP (U) NEGATIVE NEGATIVE 03/18/2024 3:57 PM LEGAL AID [facility] COCAINE METABOLITES (U) NEGATIVE NEGATIVE 03/18/2024 3:57 PM LEGAL AID [facility] METHAMPHETAMINE SCREEN (U) NEGATIVE NEGATIVE 03/18/2024 3:57 PM LEGAL AID [facility] OPIATE SCREEN (U) POSITIVE(A) NEGATIVE 2023 3:57 PM LEGAL AID [facility] AMPHETAMINE SCREEN (U) NEGATIVE NEGATIVE 03/18/2024 3:57 PM LEGAL AID [facility] BENZODIAZEPINES SCREEN (U) POSITIVE(A) NEGATIVE 03/18/2024 3:57 PM LEGAL AID [facility] TRICYCLIC ANTIDEPRESSANT SCREEN (U) NEGATIVE NEGATIVE 03/18/2024 3:57 PM LEGAL AID [facility] METHADONE (U) NEGATIVE NEGATIVE 03/18/2024 3:57 PM LEGAL AID [facility] BARBITURATES SCREEN (U) NEGATIVE NEGATIVE 03/18/2024 3:57 PM LEGAL AID [facility] OXYCODONE SCREEN (U) NEGATIVE NEGATIVE 03/18/2024 3:57 PM LEGAL AID [facility] URINE TOX COMMENT THIS TEST METHODOLOGY IS DESIGNED AND OFFERED A RAPID TURNAROUND, QUALITATIVE SCREENING PROCEDURE TO AID IN THE IMMEDIATE MEDICAL ASSESSMENT OF PATIENTS SUSPECTED OF SUBSTANCE ABUSE. 03/18/2024 3:39 PM LEGAL AID [facility] Comment: CLINICAL CONSIDERATION AND PROFESSIONAL JUDGMENT MUST BE APPLIED TO ANY DRUG OF ABUSE TEST RESULT, BOTH POSITIVE AND NEGATIVE. CONFIRMATORY QUANTITATIVE RESULTS ARE AVAILABLE THROUGH OUR REFERENCE LABORATORY. URINE SPECIMEN / Unknown 03/18/2024 3:35 PM LEGAL AID us Chin Cobb DO URINE ORDERABLES Final Result [facility] [address] [place] [address], * (ABNORMAL) URINALYSIS (03/18/2024 3:35 PM LEGAL AID) COLOR (U) YELLOW 03/18/2024 3:59 PM LEGAL AID [facility] TRANSPARENCY CLEAR 03/18/2024 3:59 PM LEGAL AID [facility] SPECIFIC GRAVITY (U) 1.020 1.000 - 1.025 03/18/2024 3:59 PM LEGAL AID [facility] U PH 6.0 5.0 - 8.0 03/18/2024 3:59 PM LEGAL AID [facility] LEUKOCYTES (U) NEGATIVE NEGATIVE 03/18/2024 3:59 PM LEGAL AID [facility] NITRITES NEGATIVE NEGATIVE 03/18/2024 3:59 PM LEGAL AID [facility] PROTEIN RANDOM (U) NEGATIVE NEGATIVE 03/18/2024 3:59 PM LEGAL AID [facility] GLUCOSE (U) NEGATIVE NEGATIVE 03/18/2024 3:59 PM LEGAL AID [facility] KETONES MG/DL (U) NEGATIVE NEGATIVE 03/18/2024 3:59 PM LEGAL AID [facility] UROBILINOGEN 1.0(H) <1.0 EU/DL 03/18/2024 3:59 PM LEGAL AID [facility] BILIRUBIN (U) NEGATIVE NEGATIVE 03/18/2024 3:59 PM LEGAL AID [facility] BLOOD (U) NEGATIVE NEGATIVE 03/18/2024 3:59 PM LEGAL AID [facility] WBC/HPF 0-5 0 - 5 /HPF 03/18/2024 3:59 PM LEGAL AID [facility] RBC/HPF 0-5 0 - 5 /HPF 03/18/2024 3:59 PM LEGAL AID [facility] EPI/LPF OCCASIONAL /LPF 03/18/2024 3:59 PM LEGAL AID [facility] BACTERIA (U) 1+ /HPF 03/18/2024 3:59 PM LEGAL AID [facility] URINE SPECIMEN OBTAINED BY CLEAN CATCH PROCEDURE / Unknown 03/18/2024 3:35 PM LEGAL AID us Chin Cobb DO URINE ORDERABLES Final Result Performing Organization Address City/[facility]/ZIP Co de Phone Number [facility] [address] [place] [address], * LACTIC ACID W REFLEX (SEPSIS) (03/18/2024 3:28 PM LEGAL AID) LACTIC ACID VENOUS 1.1 0.4 - 2.0 MMOL/L 03/18/2024 3:54 PM LEGAL AID [facility] 03/18/2024 3:28 PM LEGAL AID us Chin Cobb DO LABORATORY Final Result Performing Organization Address [facility]/ZIP Co de Phone Number [facility] [address] [place] [address], * (ABNORMAL) COMPREHENSIVE METABOLIC PANEL (03/18/2024 3:28 PM LEGAL AID) SODIUM S/P/B 136 136 - 145 MMOL/L 03/18/2024 4:02 PM LEGAL AID [facility] POTASSIUM S/P/B 3.7 3.5 - 5.1 MMOL/L 03/18/2024 4:02 PM LEGAL AID [facility] CHLORIDE S/P/B 100 98 - 107 MMOL/L 03/18/2024 4:02 PM [facility] CO2 27.7 21.0 - 32.0 MMOL/L 03/18/2024 4:02 PM LEGAL AID [facility] GLUCOSE 69(L) 70 - 99 MG/DL 03/18/2024 4:02 PM LEGAL AID [facility] Comment: FASTING GLUCOSE 100 TO 125 MG/DL IS CONSISTENT WITH IMPAIRED FASTING GLUCOSE. FASTING GLUCOSE >125 MG/DL IS CONSISTENT WITH DIABETES. RANDOM GLUCOSE >200 MG/DL WITH HYPERGLYCEMIC SYMPTOMS IS CONSISTENT WITH DIABETES. PER ADA GUIDELINES BUN 17 6 - 24 MG/DL 03/18/2024 4:02 PM [facility] CREATININE S/P/B 0.61 0.55 - 1.02 MG/DL 03/18/2024 4:02 PM [facility] CALCIUM S/P/B 9.0 8.4 - 10.5 MG/DL 03/18/2024 4:02 PM [facility] BILIRUBIN TOTAL S/P/B 0.6 0.2 - 1.0 MG/DL 03/18/2024 4:02 PM [facility] Comment: THIS ASSAY IS NOT RECOMMENDED FOR PATIENTS UNDERGOING TREATMENT WITH ELTROMBOPAG DUE TO THE POTENTIAL FOR FALSELY ELEVATED RESULTS. ALKALINE PHOSPHATASE S/P/B 90 39 - 100 U/L 03/18/2024 4:02 PM [facility] AST 29 15 - 37 U/L 03/18/2024 4:02 PM [facility] ALT 26 14 - 59 U/L 03/18/2024 4:02 PM [facility] TOTAL PROTEIN S/P/B 7.3 6.4 - 8.2 G/DL 03/18/2024 4:02 PM [facility] ALBUMIN S/P/B 3.6 3.4 - 5.0 G/DL 03/18/2024 4:02 PM [facility] ANION GAP 8.3 5.0 - 15.0 MMOL/L 03/18/2024 4:02 PM [facility] OSMOLALITY (CALC) 282 MOSM/KG 024 4:02 PM [facility] Comment:REFERENCE RANGE NOT ESTABLISHED GFR ESTIMATE >90 >89 ML/MIN/1. 73 M2 03/18/2024 4:02 PM [facility] GFR NOTES GFR REFERENCE S: 03/18/2024 4:02 PM [facility] Comment: THE ESTIMATED GFR IS [...] FAILURE: <15 ml/min/1.73 m2 03/18/2024 3:28 PM LEGAL AID us Chin Cobb DO LABORATORY Final Result Performing Organization Address [facility]/ZIP Co de Phone Number [facility] [address] [place] [address], * LDH, LACTATE DEHYDROGENASE (03/18/2024 3:28 PM LEGAL AID) LDH 155 81 - 234 UNITS/L 03/18/2024 4:10 PM LEGAL AID [facility] 03/18/2024 3:28 PM LEGAL AID us Chin Cobb DO LABORATORY Final Result Performing Organization Address [facility] de Phone Number [facility] [address] [place] [address], * (ABNORMAL) CBC W/DIFF AUTOMATED (03/18/2024 3:28 PM LEGAL AID) WBC 4.01 4.00 - 10.80 x10'3/uL 03/18/2024 3:41 PM LEGAL AID [facility] RBC 3.80(L) 4.10 - 5.40 x10'6/uL 03/18/2024 3:41 PM LEGAL AID [facility] HGB 12.7 12.0 - 16.0 G/DL 03/18/2024 3:41 PM LEGAL AID [facility] HCT 37.0 36.0 - 47.0 % 03/18/2024 3:41 PM LEGAL AID [facility] MCV 97.4 78.0 - 100.0 FL 03/18/2024 3:41 PM [facility] MCH 33.4(H) 27.0 - 31.0 PG 03/18/2024 3:41 PM [facility] MCHC 34.3 33.0 - 36.0 G/DL 03/18/2024 3:41 PM [facility] RDW 12.0 11.5 - 14.5 % 03/18/2024 3:41 PM [facility] PLT 87(L) 150 - 350 x10'3/uL 03/18/2024 3:41 PM [facility] MPV 10.3 7.4 - 10.4 FL 03/18/2024 3:41 PM [facility] CBC COMMENT NORMAL REFERENCE RANGE NOT ESTABLISHED FOR THE PROPORTIONAL LEUKOCYTE DIFFERENTIAL. 03/18/2024 3:41 PM [facility] NEUTROPHILS % 51.4 % 03/18/2024 4:15 PM [facility] LYMPHOCYTES % 36.2 % 03/18/2024 4:15 PM [facility] MONOCYTES % 9.2 % 03/18/2024 4:15 PM [facility] EOSINOPHILS % 2.5 % 03/18/2024 4:15 PM [facility] BASOPHILS % 0.5 % 03/18/2024 4:15 PM [facility] IMMATURE GRANS % 0.2 % 03/18/20 4:15 PM [facility] NRBC % 0.0 % 03/18/2024 4:15 PM [facility] ABS. NEUTROPHILS 2.06 1.60 - 8.30 x10'3/uL 03/18/2024 4:15 PM [facility] ABS. LYMPHOCYTES 1.45 0.80 - 4.70 x10'3/uL 03/18/2024 4:15 PM [facility] ABS. MONOCYTES 0.37 0.00 - 1.50 x10'3/uL 03/18/2024 4:15 PM LEGAL AID [facility] ABS. EOSINOPHILS 0.10 0.00 - 0.40 x10'3/uL 03/18/2024 4:15 PM LEGAL AID [facility] ABS. BASOPHILS 0.02 0.00 - 0.20 x10'3/uL 03/18/2024 4:15 PM LEGAL AID [facility] ABS. IMMATURE GRANULOCYTES 0.01 0.00 - 0.03 x10'3/uL 03/18/2024 4:15 PM LEGAL AID [facility] ABS. NUCLEATED RBC'S 0.00 0.00 - 0.01 x10'3/uL 03/18/2024 4:15 PM LEGAL AID [facility] PLT MORPH. DECREASED 03/18/2024 4:15 PM LEGAL AID [facility] RBC MORPHOLOGY NORMAL 03/18/2024 4:15 PM LEGAL AID [facility] 03/18/2024 3:28 PM LEGAL AID us Chin Cobb DO LABORATORY Final Result Performing Organization Address [facility]/[place] [address], * (ABNORMAL) MAGNESIUM (03/18/2024 3:28 PM LEGAL AID) MAGNESIUM 1.6(L) 1.8 - 2.4 MG/DL 03/18/2024 4:10 PM LEGAL AID [facility] 03/18/2024 3:28 PM LEGAL AID us Chin Cobb DO LABORATORY Final Result Performing Organization Address [facility]/ZIP Co de Phone Number [facility] [address] [place] [address], * (ABNORMAL) LIPASE (03/18/2024 3:28 PM LEGAL AID) LIPASE 83(H) 16 - 77 UNITS/L 03/18/2024 4:10 PM LEGAL AID [facility] 03/18/2024 3:28 PM LEGAL AID us Chin Cobb DO LABORATORY Final Result [facility] [address] [place] [address], [place] [phone] * ETHANOL (03/18/2024 3:28 PM LEGAL AID) ALCOHOL S/P/B <0.003 <0.003 G/DL 03/18/2024 4:02 PM LEGAL AID [facility] 03/18/2024 3:28 PM LEGAL AID us Chin Cobb DO LABORATORY Final Result Performing Organization Address City/[facility] Co de Phone Number [facility] [address] [place] [address], [place] [phone] from Last 3 Months Insurance MEDICAID Advance Directives * Full Code (Latest Code Status on File) Date Activated Date Inactivated Comments 01/11/2023 7:19 PM 01/14/2023 10:44 PM Care Teams Broker Assistant Relationship Specialty Start Date End Date Ruma Meade MD [address] [place] [phone] PCP - General FAMILY PRACTICE 03/18/24
--- OUTSIDE RECORDS SUMMARY | 2024-05-17 05:02 | XMS_ITS | Encounter Summary ---
Author Organization [facility] Healthcare Address [address] [place] [address] Care Team Providers Care Cash Van Salesperson Name Role Phone Bladimir Crowder MD Primary Care Provider [phone] Encounter Details Date Type Department Care Team (Late st Contact Info) Description 04/25/2024 10:30 AM MUSIC REHABILITATION THERAPIST Hospital Encounter [facility] [address] [place] [address] Jesenia Mckeon MD 1 [facility] [address] [address] Social History Tobacco Use Types Packs/Day Years [...] COVID: Suspected 05/01/2024 05/01/2024 05/01/2024 12:26 PM MUSIC REHABILITATION THERAPIST documented as of this encounter Care Teams Cash Van Salesperson Relationship Specialty Start Date End Date Bladimir Crowder MD [address] [place] [id number] PCP - General Family Medicine 04/25/24 documented as of this encounter
--- OUTSIDE RECORDS SUMMARY | 2024-05-17 05:03 | XMS_ITS | Clinical Summary ---
Author Organization [facility] Address [address] [place] [address] Care Team Providers Care Material Yard Clerk Name Role Phone Bladimir Crowder MD Primary Care Provider [phone] Allergies No known active allergies Medications gabapentin [...] Type Department Care Team Description 05/08/2024 Telephone [facility] Medical Group [facility] [id number] [phone] Shara Yates DO 05/07/2024 Documentation [facility] [address] [place] [phone] Latrice Dumont 05/05/2024 Documentation [facility] [address] [phone] Hilario, Jana EValentín 05/03/2024 Documentation [facility] [address] [place], [place] [phone] Hilario, Jana EValentín 05/02/2024 Documentation [facility] [address] [place] [phone] Latrice Dumont 05/01/2024 Documentation [facility] [address] [place] [phone] Hilario, Jana EValentín 04/30/2024 Documentation [facility] [address] [place] [phone] Latrice Dumont 04/29/2024 Documentation [facility] [address] [place], [place] [phone] Latrice Dumont 04/27/2024 AMH Enrollment [facility] [address] [place], [place] [phone] Hilario, Jana EValentín 04/25/2024 10:50 AM FINANCIAL INSTITUTION TREASURER - 05/07/2024 3:39 PM FINANCIAL INSTITUTION TREASURER Hospital Encounter [address] [address] Maddie White MD Sargsyan, Narine, MD Sinha, Chandni, MD Abegunde, Veronica O., MD Nations, Matthew Austin, Alcohol withdrawal syndrome without complication (HCC) (Primary Dx); Unspecified mood disorder (HCC) Discharge Disposition: Discharge to home or self care 04/25/2024 10:30 AM FINANCIAL INSTITUTION TREASURER Hospital Encounter [facility] [address] [place] [id number] Jesenia Mckeon MD 04/25/2024 8:30 AM FINANCIAL INSTITUTION TREASURER Lab [address] [phone] 04/25/2024 Documentation [facility] [address] [place] [address] Jana Hilario 04/25/2024 Documentation [facility] [address] [place] [address] Jana Hilario 04/23/2024 Documentation [facility] [address] [place] [address] Latrice Dumont from Last 3 Months Social [...] Comments Blood Pressure 118/80 05/07/2024 10:52 AM FINANCIAL INSTITUTION TREASURER Pulse 74 05/07/2024 10:52 AM FINANCIAL INSTITUTION TREASURER Temperature 36.6 C (97.9 F) 05/07/2024 10:52 AM FINANCIAL INSTITUTION TREASURER Respiratory Rate 20 05/07/2024 10:52 AM FINANCIAL INSTITUTION TREASURER Oxygen Saturation 91% 05/07/2024 10:52 AM FINANCIAL INSTITUTION TREASURER Inhaled Oxygen Concentration - - Weight 78.6 kg (173 lb 4.5 oz) 05/02/2024 1:12 A M FINANCIAL INSTITUTION TREASURER Height 165.1 cm (5' 5 ) 04/29/2024 3:24 PM FINANCIAL INSTITUTION TREASURER Body Mass Index 28.84 04/29/2024 3:24 PM FINANCIAL INSTITUTION TREASURER Plan of Treatment Health Maintenance Due Date [...] Diagnosis Comments EGFR Routine 05/05/2024 12:12 PM FINANCIAL INSTITUTION TREASURER CBC WITHOUT DIFFERENTIAL Routine 05/05/2024 12:12 PM FINANCIAL INSTITUTION TREASURER COMPREHENSIVE METABOLIC PANEL Routine 05/05/2024 12:12 PM FINANCIAL INSTITUTION TREASURER TRANSTHORACIC ECHO (TTE) COMPLETE W DOPPLER/CF WO CONTRAST Routine 05/04/2024 7:30 AM FINANCIAL INSTITUTION TREASURER US UPPER EXTREMITY RIGHT LIMITED IP Routine 05/03/2024 2:05 PM FINANCIAL INSTITUTION TREASURER BLOOD CULTURE Routine 05/03/2024 1:35 PM FINANCIAL INSTITUTION TREASURER BLOOD CULTURE Routine 05/03/2024 11:25 AM FINANCIAL INSTITUTION TREASURER TROPONIN T HIGH-SENSITIVITY 6-HOUR Timed 05/02/2024 11:01 AM FINANCIAL INSTITUTION TREASURER TROPONIN T HIGH-SENSITIVITY 2-HOUR Timed 05/02/2024 6:37 AM FINANCIAL INSTITUTION TREASURER TROPONIN T HIGH-SENSITIVITY SERIES (BASELINE, 2HR, 4HR, 6HR) Routine 05/02/2024 4:17 AM FINANCIAL INSTITUTION TREASURER ECG 12-LEAD Routine 05/02/2024 2:17 AM FINANCIAL INSTITUTION TREASURER US ABDOMEN LIMITED IP Routine 05/01/2024 3: 50 PM FINANCIAL INSTITUTION TREASURER APTT STAT 05/01/2024 2:50 PM FINANCIAL INSTITUTION TREASURER PROTIME-INR STAT 05/01/2024 2:50 PM FINANCIAL INSTITUTION TREASURER URINALYSIS, MICROSCOPIC ONLY Routine 05/01/2024 10:44 AM FINANCIAL INSTITUTION TREASURER URINALYSIS AND REFLEX TO MICROSCOPIC AND CULTURE Routine 05/01/2024 10:44 AM FINANCIAL INSTITUTION TREASURER RESPIRATORY PATHOGEN PANEL Routine 05/01/2024 10:04 AM FINANCIAL INSTITUTION TREASURER XR CHEST 1 VIEW IP Routine 05/01/2024 9:53 AM FINANCIAL INSTITUTION TREASURER EGFR STAT 05/01/2024 8:52 AM FINANCIAL INSTITUTION TREASURER LACTATE STAT 05/01/2024 8:52 AM FINANCIAL INSTITUTION TREASURER COMPREHENSIVE METABOLIC PANEL STAT 05/01/2024 8:52 AM FINANCIAL INSTITUTION TREASURER CBC WITHOUT DIFFERENTIAL STAT 05/01/2024 8:52 AM FINANCIAL INSTITUTION TREASURER BLOOD CULTURE Routine 04/30/2024 8:47 PM FINANCIAL INSTITUTION TREASURER BLOOD CULTURE Routine 04/30/2024 8:47 PM FINANCIAL INSTITUTION TREASURER MRI LUMBAR SPINE WO CONTRAST IP Routine 04/30/2024 2:26 PM FINANCIAL INSTITUTION TREASURER CT ABDOMEN PELVIS W CONTRAST IP Routine 04/29/2024 9:22 AM FINANCIAL INSTITUTION TREASURER EGFR Routine 04/29/2024 4:53 AM FINANCIAL INSTITUTION TREASURER DIFFERENTIAL AUTO Routine 04/29/2024 4:5 3 AM FINANCIAL INSTITUTION TREASURER PHOSPHORUS Routine 04/29/2024 4:53 AM FINANCIAL INSTITUTION TREASURER MAGNESIUM Routine 04/29/2024 4:53 AM FINANCIAL INSTITUTION TREASURER HEPATIC FUNCTION PANEL Routine 04/29/2024 4:53 AM FINANCIAL INSTITUTION TREASURER CBC WITH AUTO DIFFERENTIAL Routine 04/29/2024 4:53 AM FINANCIAL INSTITUTION TREASURER BASIC METABOLIC PANEL Routine 04/29/2024 4:53 AM FINANCIAL INSTITUTION TREASURER HEPATIC FUNCTION PANEL Add-On 04/28/2024 1:16 PM FINANCIAL INSTITUTION TREASURER LIPASE STAT 04/28/2024 1:16 PM FINANCIAL INSTITUTION TREASURER EGFR Routine 04/26/2024 8:41 AM FINANCIAL INSTITUTION TREASURER COMPREHENSIVE METABOLIC PANEL Routine 04/26/2024 8:41 AM FINANCIAL INSTITUTION TREASURER CBC WITHOUT DIFFERENTIAL Routine 04/26/2024 8:41 AM FINANCIAL INSTITUTION TREASURER APTT STAT 04/25/2024 8:53 AM FINANCIAL INSTITUTION TREASURER PROTIME-INR STAT 04/25/2024 8:53 AM FINANCIAL INSTITUTION TREASURER MAGNESIUM Add-On 04/25/2024 8:53 AM FINANCIAL INSTITUTION TREASURER EGFR STAT 04/25/2024 8:53 AM FINANCIAL INSTITUTION TREASURER DIFFERENTIAL AUTO STAT 04/25/2024 8:5 3 AM FINANCIAL INSTITUTION TREASURER ETHANOL STAT 04/25/2024 8:53 AM FINANCIAL INSTITUTION TREASURER COMPREHENSIVE METABOLIC PANEL STAT 04/25/2024 8:53 AM FINANCIAL INSTITUTION TREASURER CBC WITH AUTO DIFFERENTIAL STAT 04/25/2024 8:53 AM FINANCIAL INSTITUTION TREASURER EGFR STAT 04/25/2024 8:33 AM FINANCIAL INSTITUTION TREASURER DRUGS OF ABUSE SCREEN, URINE WITHOUT CONFIRMATION Routine 04/25/2024 8:33 AM FINANCIAL INSTITUTION TREASURER CBC WITHOUT DIFFERENTIAL STAT 04/25/2024 8:33 AM FINANCIAL INSTITUTION TREASURER COMPREHENSIVE METABOLIC PANEL STAT 04/25/2024 8:33 AM FINANCIAL INSTITUTION TREASURER from Last 3 Months Results * eGFR (05/05/2024 12:12 PM FINANCIAL INSTITUTION TREASURER) eGFR >90 >=60 mL/min/1. 73 m2 Comment: Interpretive Data Reference Interval Normal >/= 90 mL/min/1.73m2 Mildly decreased* 60 - 89 mL/min/1.73m2 Mildly to moderately decreased 45 - 59 mL/min/1.73m2 Moderately to severely decreased 30 - 44 mL/min/1.73m2 Severely decreased 15 - 29 mL/min/1.73m2 Kidney Failure < 15 mL/min/1.73m2 *Relative to young adult level Estimated glomerular [...] reviewed 2021. Blood 05/05/2024 12:1 2 PM FINANCIAL INSTITUTION TREASURER 05/05/2024 12:26 PM FINANCIAL INSTITUTION TREASURER Shara Yates DO LAB BLOOD ORDERABLES F inal Result [facility] ([facility]) 1 [facility] Department [place] [address] * (ABNORMAL) CBC without differential (05/05/2024 12:12 PM FINANCIAL INSTITUTION TREASURER) WBC 4.3 3.8 - 9.9 K/cumm Hgb 12.4 11.9 - 15.5 g/dL [facility] ([facility]) Hct 36.7 35.6 - 45.5 % [facility] ([facility]) Plt 117(L) 150 - 400 K/cumm [facility] ([facility]) MPV 10.2 9.1 - 12.3 fL [facility] ([facility]) RBC 3.87(L) 3.90 - 5.20 M/cumm [facility] ([facility]) MCV 94.8 81.3 - 96.4 fL [facility] ([facility]) MCH 32.0 27.1 - 33.3 pg [facility] ([facility]) MCHC 33.8 32.3 - 35.7 g/dL [facility] ([facility]) RDW CV 13.3 11.1 - 14.9 % [facility] ([facility]) RDW SD 46.5 35.7 - 48.1 fL [facility] ([facility]) NRBC abs 0.00 0.00 - 0.01 K/cumm [facility] ([facility]) Blood 05/05/2024 12:1 2 PM FINANCIAL INSTITUTION TREASURER 05/05/2024 12:26 PM FINANCIAL INSTITUTION TREASURER Shara Serrano [facility] DO LAB BLOOD ORDERABLES F inal Result [facility] ([facility]) 1 [facility] Department [place] [address] * (ABNORMAL) Comprehensive metabolic panel (05/05/2024 12:12 PM FINANCIAL INSTITUTION TREASURER) Sodium 138 135 - 145 mmol/L Potassium, pl 4.1 3.3 - 4.9 mmol/L [facility] ([facility]) Chloride 104 97 - 110 mmol/L [facility] ([facility]) CO2 24 22 - 32 mmol/L [facility] ([facility]) Anion gap 11 2 - 15 mmol/L [facility] BUN 12 6 - 25 mg/dL [facility] ([facility]) Creatinine 0.45(L) 0.60 - 1.10 mg/dL [facility] ([facility]) Glucose 102 70 - 199 mg/dL [facility] ([facility]) Comment: Interpretive Data Fasting glucose >/= 126 mg/dl is diagnostic for diabetes. Fasting is defined as no caloric intake [...] [facility] ([facility]) Blood 05/05/2024 12:1 2 PM FINANCIAL INSTITUTION TREASURER 05/05/2024 12:26 PM FINANCIAL INSTITUTION TREASURER us Shara Yates DO LAB BLOOD ORDERABLES F inal Result [facility] ([facility] 1 [facility] Department [place] [address] * TRANSTHORACIC ECHO (TTE) COMPLETE W DOPPLER/CF WO CONTRAST (05/04/2024 7:30 AM FINANCIAL INSTITUTION TREASURER) LV EF 60-65 % CONS SCIMAGE Anatomical Region Laterality Modality Ultrasound 05/04/2024 7:13 AM FINANCIAL INSTITUTION TREASURER Narrative 05/04/2024 4:47 PM FINANCIAL INSTITUTION TREASURER [address] [place] [address] Echocardiogram Report Patient Name: LATRICE VALENCIA : 1975 Study Date: 05/04/2024 7:13:46 AM Gender: F Tech: NL Location: [id number] Ref Provider: SHARA YATES Height(Cm): 165 BSA: 1.74 Weight(Kg): 65.8 Quality: Adequate Order Provider: SHARA YATES PROCEDURES: Echocardiographic Report: Transthoracic echocardiogram with complete 2D, M-Mode, and color Doppler examination. INDICATIONS: r/o veggie. MEASUREMENTS: 2D/MM Value Range Doppler Value Range EF Teich MM 63.0 % [ 54.0 - 74.0 ] OLGA Vmax 2.87 cm2 Estimated EF 60-65 % AV Mean PG 3 mmHg LVIDd MM 5.30 cm [ 3.80 - 5.20 ] AV Peak Nicolás 1.23 m/s [ 1.00 - 1.70 ] LVIDs MM 3.50 cm [ 2.20 - 3.50 ] AV VTI 23.63 cm LVPWd MM 0.80 cm [ 0.60 - 0.90 ] LVOT Diam 2.38 cm IVSd MM 0.80 cm [ 0.60 - 0.90 ] LVOT Peak [place] 0.79 m/s [ 0.70 - 1.10 ] LA Dimension MM 3.34 cm [ 2.70 - 3.80 ] LVOT VTI 14.61 cm AoR Diam MM 3.32 cm [ 2.70 - 3.70 ] MV E Peak Nicolás 0.56 m/s [ 0.60 - 1.30 ] ACS MM 2.22 cm MV A Peak [place]ás 0.53 m/s [ 1.00 - 1.20 ] MV Mean PG 1 mmHg MV PHT 38 msec [ 20 - 100 ] MVA 5.80 MV Decel Time 280 msec [ 104 - 258 ] PV Peak Nicolás 0.77 m/s [ 0.40 - 0.80 ] E` 0.05 m/s E/E` 10.59 [ <= 10.00 ] 2D/MM Value Range Doppler Value Range - FINDINGS: Atrial Septum: Normal atrial septum. [...] By: Kwaku Blanco MD 05/04/2024 4:46:44 PM FINANCIAL INSTITUTION TREASURER Procedure Note Kwaku Blanco MD - 05/04/[address] [address] Echocardiogram Report Patient Name: LATRICE VALENCIA : 1975 Study Date: 05/04/2024 7:13:46 AM Gender: F Tech: Location: [id number] Ref Provider: SHARA YATES Height(Cm): 165 BSA: [...] By: Kwaku Blanco MD 05/04/2024 4:46:44 PM FINANCIAL INSTITUTION TREASURER [facility] DO CV ECHO PROCEDURES Fin al Result * US Upper Extremity Right Limited (05/03/2024 2:05 PM FINANCIAL INSTITUTION TREASURER) Anatomical Region Laterality Modality Upper Extremities Right Ultrasound 05/03/2024 4:48 PM FINANCIAL INSTITUTION TREASURER Narrative 05/03/2024 4:51 PM FINANCIAL INSTITUTION TREASURER EXAM DESCRIPTION: US UPPER EXTREMITY RIGHT LIMITED REASON FOR STUDY: Patient with cellulitis at site of right forearm prior IV site. Firmness at this area, wanting to rule out an abscess. TECHNIQUE: A Dynamic assessment was performed of the soft tissues in the right elbow region by the body component engineer, with selected grayscale and color Doppler images acquired and recorded in PACS. COMPARISON: None FINDINGS: Thrombus is seen within a superficial vein within the region of concern, with prominent peripheral vascularity. IMPRESSION: Superficial thrombophlebitis within the region of concern. THIS IS AN ELECTRONICALLY VERIFIED FINAL REPORT 05/03/2024 4:51 PM - Electronically signed by Boyd Cook M.D. KR: CHANG Report ID: [id number] [place] Location: [id number] Procedure Note Boyd Cook MD - 05/03/2024 EXAM DESCRIPTION: US UPPER EXTREMITY RIGHT LIMITED REASON FOR STUDY: Patient with cellulitis at site of right forearm priorIV site. Firmness at this area, wanting to rule out an abscess. TECHNIQUE: A Dynamic assessment was performed of the soft tissues in theright elbow region by the body component engineer, with selected grayscale and color Doppler images acquired and recorded in PACS. COMPARISON: None FINDINGS: Thrombus is seen within a superficial vein within the region of concern,with prominent peripheral vascularity. IMPRESSION: Superficial thrombophlebitis within the region of concern. THIS IS AN ELECTRONICALLY VERIFIED FINAL REPORT 05/03/2024 4:51 PM - Electronically signed by Boyd Cook M.D. KR: CHANG Report ID: [id number] [place] Location: [id number] [facility] DO IMG US PROCEDURES Maeve l Result * Blood culture Blood (05/03/2024 1:35 PM FINANCIAL INSTITUTION TREASURER) Report Final Report: No growth Comment:Testing performed by : [facility], 1 [facility] [place]., [address] Blood 05/03/2024 1:35 PM FINANCIAL INSTITUTION TREASURER 05/03/2024 4:30 PM FINANCIAL INSTITUTION TREASURER Narrative [facility] ([facility]) - 05/08/2024 7:00 AM FINANCIAL INSTITUTION TREASURER From a different site than #1. Collection->Peripheral 1. Blood cultures are incubated for 4 days on a continuously monitored blood culture system. The first report of a negative culture is issued within 24 hours of receipt of the specimen in the laboratory. 2. Positive culture results are reported as soon as they are detected. 3. The most important factor for detection of microbes in the setting of bloodstream infection is the volume of blood submitted for culture. Failure to collect an optimal blood volume can result in false negative blood cultures. 4. For pediatric patients, the recommended blood volume to collect follows a weight based strategy. See the electronic test catalog for collection instructions. 5. For positive blood cultures, a rapid molecular test [...] have been verified by the [facility] Microbiology Laboratory. For questions about this culture, contact the Microbiology Laboratory at [phone]. Interpretive data was last revised on 24. Shara Serrano Suzy DO LAB MICROBIOLOGY - GEN ERAL ORDERABLES Final Result [facility]) 1 [facility] Department [place] [address] * Blood culture Blood (05/03/2024 11:25 AM FINANCIAL INSTITUTION TREASURER) Report Final Report: No growth Comment:Testing performed by : [facility], 1 [facility] [place]., [address] Blood 05/03/2024 11:2 5 AM FINANCIAL INSTITUTION TREASURER 05/03/2024 1:53 PM FINANCIAL INSTITUTION TREASURER Narrative [facility] ([facility]) - 05/07/2024 4:00 PM FINANCIAL INSTITUTION TREASURER Collection->Peripheral 1. Blood cultures are incubated for 4 days on a continuously monitored blood culture system. The first report of a negative culture is issued within 24 hours of receipt of the specimen in the laboratory. 2. Positive culture results are reported as soon as they are detected. 3. The most important factor for detection of microbes in the setting of bloodstream infection is the volume of blood submitted for culture. Failure to collect an optimal blood volume can result in false negative blood cultures. 4. For pediatric patients, the recommended blood volume to collect follows a weight based strategy. See the electronic test catalog for collection instructions. 5. For positive blood cultures, a rapid molecular test [...] have been verified by the [facility] Microbiology Laboratory. For questions about this culture, contact the Microbiology Laboratory at [phone]. Interpretive data was last revised on 24. Shara Serrano Suzy JIM LAB MICROBIOLOGY - GEN ERAL ORDERABLES Final Result Performing Organization Address City/[facility] Co de Phone Number [facility] ([facility]) 1 [facility] [address] [place] [address] * Troponin T high-sensitivity 6-hour (05/02/2024 11:01 AM FINANCIAL INSTITUTION TREASURER) Trop T hs <6 <=14 ng/L Comment: Interpretive Data For further hscTnT resources including the diagnostic algorithm and an aid in interpretation, copy and paste this link: https://nrl.haku.org/show/hsTrop Current Interpretive Data last revised 2020. Trop T hs delta 0 ng/L [facility] ([facility]) Trop T hs interp Insignificant [facility] ([facility]) Blood 05/02/2024 11:0 1 AM FINANCIAL INSTITUTION TREASURER 05/02/2024 11:11 AM FINANCIAL INSTITUTION TREASURER us Guille Wall MD LAB BLOOD ORDERABLES Final Resu lt Performing Organization Address [facility] Co de Phone Number [facility] ([facility]) 1 [facility] [address] [place] [address] * Troponin T high-sensitivity 2-hour (05/02/2024 6:37 AM FINANCIAL INSTITUTION TREASURER) Trop T hs <6 <=14 ng/L Comment: Interpretive Data For further hscTnT resources including the diagnostic algorithm and an aid in interpretation, copy and paste this link: https://nrl.haku.org/show/hsTrop Current Interpretive Data last revised 2020. Trop T hs delta 0 ng/L [facility] ([facility]) Trop T hs interp Insignificant [facility] ([facility]) Blood 05/02/2024 6:37 AM FINANCIAL INSTITUTION TREASURER 05/02/2024 7:06 AM FINANCIAL INSTITUTION TREASURER Guille Wall MD LAB BLOOD ORDERABLES Final Resu lt [facility] ([facility]) 1 [facility] [place] [address] * Troponin T high-sensitivity series (baseline, 2hr, 4hr, 6hr) (05/02/2024 4:17 AM FINANCIAL INSTITUTION TREASURER) Trop T hs <6 <=14 ng/L Comment: Interpretive Data For further hscTnT resources including the diagnostic algorithm and an aid in interpretation, copy and paste this link: https://nrl.testcatalog.org/show/hsTrop Current Interpretive Data last revised 2020. Blood 05/02/2024 4:17 AM FINANCIAL INSTITUTION TREASURER 05/02/2024 4:40 AM FINANCIAL INSTITUTION TREASURER Guille Wall MD LAB BLOOD ORDERABLES Final Resu lt Performing Organization Address [facility] Co de Phone Number [facility] ([facility]) 1 [facility] [place] [address] * ECG 12 lead (05/02/2024 2:17 AM FINANCIAL INSTITUTION TREASURER) 05/02/2024 2:17 AM FINANCIAL INSTITUTION TREASURER Narrative [facility] [employer] - 05/02/2024 7:39 AM FINANCIAL INSTITUTION TREASURER Vent Rate: 73 bpm RR Interval: 816 msec ND Interval: 180 msec QRS Duration: 84 msec QT Interval: 397 msec QTC Interval: 423 msec P-R-T [place]: 40 - -21 - 31 degrees IMPRESSION: SINUS RHYTHM WITH SINUS ARRHYTHMIA BORDERLINE LEFT AXIS DEVIATION [QRS AXIS < -20] BORDERLINE ECG Electronically Signed By: Kwaku Blanco MD Guille Wall MD ECG ORDERABLES Final Result Performing Organization Address City/[facility] Co de Phone Number [facility] [employer] [place] * US Abdomen Limited (05/01/2024 3:50 PM FINANCIAL INSTITUTION TREASURER) Anatomical Region Laterality Modality Abdomen N/A Ultrasound 05/01/2024 5:06 PM FINANCIAL INSTITUTION TREASURER Narrative 05/01/2024 5:08 PM FINANCIAL INSTITUTION TREASURER EXAM DESCRIPTION: US ABDOMEN LIMITED REASON FOR STUDY: Epigastric abdominal pain and history of alcohol abuse. Upper abdominal pain beginning 04/28/2024. Concern for ascites. TECHNIQUE: Ultrasound of the right upper quadrant of the abdomen was performed with grayscale and color doppler. COMPARISON: None FINDINGS: Limited ultrasound of the abdomen shows no evidence of ascites. Incidental note is made of cholelithiasis. IMPRESSION: No evidence of ascites. Cholelithiasis. THIS IS AN ELECTRONICALLY VERIFIED FINAL REPORT 05/01/2024 5:08 PM - Electronically signed by Boyd Caldwell M.D. KT: KARINA Report ID: [id number] [place] Location: [id number] Procedure Note Boyd Caldwell MD - 05/01/2024 [...] Boyd Caldwell M.D. KT: KARINA Report ID: [id number] [place] Location: [id number] Shara Serrano [facility] DO IMG US PROCEDURES Maeve l Result * aPTT (05/01/2024 2:50 PM FINANCIAL INSTITUTION TREASURER) aPTT 34 28 - 38 sec [facility] ([facility]) Comment: Interpretive Data Heparin therapeutic range: 66.0 - 100.0 seconds. Range based on correlation with therapeutic heparin activity range of 0.3 - 0.7 Units/mL. Current interpretive data was last revised on 2023. Blood 05/01/2024 2:50 PM FINANCIAL INSTITUTION TREASURER 05/01/2024 3:05 PM FINANCIAL INSTITUTION TREASURER [facility] DO LAB BLOOD ORDERABLES F inal Result [facility] ([facility] 1 [facility] [place] [address] * (ABNORMAL) Protime-INR (05/01/2024 2:50 PM FINANCIAL INSTITUTION TREASURER) PT 14.9(H) 9.7 - 13.0 sec [facility] ([facility]) INR 1.37(H) 0.90 - 1.20 [facility] ([facility]) Comment: Interpretive data Oral anticoagulant therapeutic ranges: Venous thromboembolism prophylaxis or treatment: 2.0-3.0 CARDIOLOGY Standard range: 2.0-3.0 High-intensity range: 2.5-3.5 Refer to indication-specific guidelines for appropriate target ranges for prosthetic heart valve replacement. Current interpretive data was last revised on 2019. Blood 05/01/2024 2:50 PM FINANCIAL INSTITUTION TREASURER 05/01/2024 3:05 PM FINANCIAL INSTITUTION TREASURER [facility] LAB BLOOD ORDERABLES F inal Result [facility] ([facility]) 1 [facility] [place] [address] * (ABNORMAL) Urinalysis reflex to microscopic and culture Urine (05/01/2024 10:44 AM FINANCIAL INSTITUTION TREASURER) Color, ur Yellow Yellow Clarity, ur Clear Clear [facility] ([facility]) Specific gravity, ur 1.017 1.003 - 1.030 [facility] ([facility]) pH, urine 6.0 [facility] ([facility]) Comment: Interpretive Data U rine pH is affected by diet, medications, systemic acid-base disturbances, and renal tubular function. pH may affect urinary stone formation. For example, urine pH below 6.0 may help reduce the tendency for calcium phosphate stones and pH greater than 6.0 may reduce the tendency for uric acid stone formation. Source: [facility] Current Interpretive Data was last [...] [facility] ([facility]) Urine 05/01/2024 10:4 4 AM FINANCIAL INSTITUTION TREASURER 05/01/2024 10:50 AM FINANCIAL INSTITUTION TREASURER Shara Yates DO LAB MICROBIOLOGY - GEN ERAL ORDERABLES Final Result [facility] ([facility]) 1 [facility] Department [place] [address] * (ABNORMAL) Urinalysis, microscopic only (05/01/2024 10:44 AM FINANCIAL INSTITUTION TREASURER) WBC, ur 0-5 0 - 5 /HPF RBC, ur 0-2 0 - 2 /HPF [facility] ([facility]) Epithelial cells, squamous, ur 11-20(A) 0 - 5 /HPF [facility] ([facility]) Bacteria, ur Trace(A) [facility] ([facility]) Mucous, ur Present(A) [facility] ([facility]) Culture Reflex Comment Reflex conditions for urine culture (WBC >10) not met. [facility] ([facility]) Urine 05/01/2024 10:4 4 AM FINANCIAL INSTITUTION TREASURER 05/01/2024 10:50 AM FINANCIAL INSTITUTION TREASURER Shara Yates DO LAB URINE ORDERABLES F inal Result [facility] ([facility]) 1 [facility] Department [place] [address] * Respiratory pathogen panel Nasopharyngeal (05/01/2024 10:04 AM FINANCIAL INSTITUTION TREASURER) Pathologist [facility] Influenza A RNA Not Detected Not Detected Comment:Testing performed by : [facility], [address] [place] [address], [id number] Influenza B RNA Not Detected Not Detected [facility] ([facility]) Comment:Testing performed by : [facility], [address] [place] [address], [id number] RSV RNA Not Detected Not Detected [facility] ([facility]) Comment:Testing performed by : [facility], [address] [place] [address], [id number] COVID-19 RNA Not Detected Not Detected [facility] ([facility]) Comment:Testing performed by : [facility], [address] [place] [address]., [address] Coronavirus 229E RNA Not Detected Not Detected [facility] ([facility]) Comment:Testing performed by : [address], [address] Coronavirus HKU1 RNA Not Detected Not Detected [facility] ([facility]) Comment:Testing performed by : [facility], [address] [place] [address]., [address] Coronavirus NL63 RNA Not Detected Not Detected [facility] ([facility]) Comment:Testing performed by : [facility], [address] [place] [address]., [address] Coronavirus OC43 RNA Not Detected Not Detected [facility] ([facility]) Comment:Testing performed by : [address], [address] Adenovirus DNA Not Detected Not Detected [facility] ([facility]) Comment:Testing performed by : [address], [address] Metapneumovirus RNA Not Detected Not Detected [facility] ([facility]) Comment:Testing performed by : [address], [address] Rhinovirus/Enterov irus RNA Not Detected Not Detected [facility] ([facility]) Comment:Testing performed by : [facility], [address] [place] [address]., [address] Parainfluenza 1 RNA Not Detected Not Detected [facility] ([facility]) Comment:Testing performed by : [facility], [address] [place] [address]., [address] Parainfluenza 2 RNA Not Detected Not Detected [facility] ([facility]) Comment:Testing performed by : [facility], [address] [place] [address]., [address] Parainfluenza 3 RNA Not Detected Not Detected [facility] ([facility]) Comment:Testing performed by : [facility], [address] [place] [address]., [address] Parainfluenza 4 RNA Not Detected Not Detected [facility] ([facility]) Comment:Testing performed by : [facility], [address] [place] [address]., [address] B. pertussis DNA Not Detected Not Detected [facility] ([facility]) Comment:Testing performed by : [facility], [address] [place] [address]., [address] B. parapertussis DNA Not Detected Not Detected [facility] ([facility]) Comment:Testing performed by : [facility], [address] [place] [address]., [address] C. pneumoniae DNA Not Detected Not Detected [facility] ([facility]) Comment:Testing performed by : [facility], [address] [place] [address]., [address] M. pneumoniae DNA Not Detected Not Detected [facility] ([facility]) Comment: Interpretive Data The [employer] FilmArray Respiratory Panel (RP2.1) assay is a [...] cross-react with some isolates of Coronavirus HKU1. A dual positive result may be due to cross-reactivity or may indicate a co- infection. The detection and identification of specific viral and bacterial nucleic acids from individuals exhibiting signs and symptoms of a respiratory infection aids in the diagnosis of respiratory infection if used in conjunction with other clinical and epidemiological information. The results of this test should not be used as the sole basis for diagnosis, treatment, or other management decisions. Negative results in the setting of a respiratory illness may be due to infection with pathogens that are not detected by this test. Positive results do not rule out infection/co-infection with other organisms. The agent(s) detected by the FilmArray RP2.1 may not be the definite cause of disease. Additional testing (lab, imaging, etc.) may be necessary when evaluating a patient with possible respiratory tract infection. The FilmArray RP2.1 assay has FDA clearance for testing of [employer] swabs. The performance characteristics of this assay have been determined by [facility]. Current interpretive data was last revised on 2020. Testing performed by: [facility], [address] [place] [address]., [id number] Nasopharyngeal 05/01/2024 10 :04 AM FINANCIAL INSTITUTION TREASURER 05/01/2024 11:23 AM FINANCIAL INSTITUTION TREASURER Narrative [facility] ([facility]) - 05/01/2024 12:24 PM FINANCIAL INSTITUTION TREASURER Is the Patient experiencing symptoms consistent with COVID?->Yes Surveillance testing for transplant patient?->No Shara Yates DO LAB MICROBIOLOGY - GEN ERAL ORDERABLES Final Result [facility] ([facility]) 1 [facility] Department [place] [address] CH * XR CHEST 1 VIEW PORTABLE (05/01/2024 9:53 AM FINANCIAL INSTITUTION TREASURER) Anatomical Region Laterality Modality Body, Chest N/A Computed Radiogr aphy 05/01/2024 12:2 9 PM FINANCIAL INSTITUTION TREASURER Narrative 05/01/2024 12:30 PM FINANCIAL INSTITUTION TREASURER EXAM DESCRIPTION: XR CHEST 1 VIEW REASON [...] Dong Thorne M.D. RB: RB Report ID: [id number] Reading Location: [id number] Procedure Note Dong Thorne MD - 05/01/2024 [...] Dong Thorne M.D. RB: RB Report ID: [id number] Reading Location: [id number] Shara Serrano [facility] DO IMG XR PROCEDURES Maeve l Result * Lactate (05/01/2024 8:52 AM FINANCIAL INSTITUTION TREASURER) Lactate 1.3 0.7 - 2.0 mmol/L Blood 05/01/2024 8:52 AM FINANCIAL INSTITUTION TREASURER 05/01/2024 9:01 AM FINANCIAL INSTITUTION TREASURER us Shara Yates DO LAB BLOOD ORDERABLES F inal Result Performing Organization Address City/[facility]/ZIP Co de Phone Number [facility] ([facility]) [address] [place] [address] [address] [place] [address] * eGFR (05/01/2024 8:52 AM FINANCIAL INSTITUTION TREASURER) Pathologist [facility] eGFR >90 >=60 mL/min/1. 73 m2 Comment: Interpretive Data Reference Interval Normal >/= 90 mL/min/1.73m2 Mildly decreased* 60 - 89 mL/min/1.73m2 Mildly to moderately decreased 45 - 59 mL/min/1.73m2 Moderately to severely decreased 30 - 44 mL/min/1.73m2 Severely decreased 15 - 29 mL/min/1.73m2 Kidney Failure < 15 mL/min/1.73m2 *Relative to young adult level Estimated glomerular [...] last reviewed 2021. Blood 05/01/2024 8:52 AM FINANCIAL INSTITUTION TREASURER 05/01/2024 9:40 AM FINANCIAL INSTITUTION TREASURER us Shara Yates DO LAB BLOOD ORDERABLES F inal Result [facility] ([facility]) 1 [facility] [place] [address] * (ABNORMAL) CBC without differential (05/01/2024 8:52 AM FINANCIAL INSTITUTION TREASURER) Pathologist [facility] WBC 6.4 3.8 - 9.9 K/cumm [...] [facility] ([facility]) Blood 05/01/2024 8:52 AM FINANCIAL INSTITUTION TREASURER 05/01/2024 9:40 AM FINANCIAL INSTITUTION TREASURER Shara Serrano [facility] DO LAB BLOOD ORDERABLES F inal Result [facility] ([facility]) 1 [facility] Department [place] [address] * (ABNORMAL) Comprehensive metabolic panel (05/01/2024 8:52 AM FINANCIAL INSTITUTION TREASURER) Pathologist [facility] Sodium 132(L) 135 - 145 mmol/L Potassium, [...] >/= 126 mg/dl is diagnostic for diabetes. Fasting is defined as no caloric intake [...] [facility] ([facility]) Blood 05/01/2024 8:52 AM FINANCIAL INSTITUTION TREASURER 05/01/2024 9:40 AM FINANCIAL INSTITUTION TREASURER Shara Serrano [facility] DO LAB BLOOD ORDERABLES F inal Result [facility] ([facility]) 1 [facility] Department [place] [address] * (ABNORMAL) Blood culture Blood (04/30/2024 8:47 PM FINANCIAL INSTITUTION TREASURER) Direct Specimen Exam Molecular Analysis: Methicillin-suscep tible Staphylococcus aureus (MSSA) detected by the maxx ePlex BCID-GP panel. This test does not exclude the possibility of a mixed bacterial infection. Notification of: Methicillin-suscep tible Staphylococcus aureus (MSSA) called to and read back by: Latrice Wellington MLS ([phone]) on 05/02/2024 01:41:52 by: Fritz Kebede MLS Comment:Testing performed by : [facility], [address] [place] [address]., [id number] Direct Specimen Exam Stain: Gram Positive Cocci in clusters Time to culture positivity (anaerobic media): 22.7 hours Notification of: Gram Positive Cocci in clusters called to and read back by: Latrice Wellington MLS ([phone]) on 05/01/2024 23:41:23 by: Fritz Kebede MLS Test result called to and read back by fabio stephenson on 05/02/2024 00:23:23 by latrice [facility] (ALLI) Comment:Testing performed by : [facility], [address] [place] [address]., [id number] Report Final Report: Staphylococcus aureus Methicillin susceptible (MSSA) by penicillin binding protein 2a (PBP2a) testing. (.) [facility] ([facility]) Comment:Testing performed by : [facility], [address] [place] [address]., [id number] Organism STAPHYLOCOCCUS AUREUS [facility] ([facility]) Blood 04/30/2024 8:47 PM FINANCIAL INSTITUTION TREASURER 05/01/2024 Narrative [facility] ([facility]) - 05/06/2024 1:15 PM FINANCIAL INSTITUTION TREASURER From a different site than #1. Collection->Peripheral 1. Blood cultures are incubated for 4 days on a continuously monitored blood culture system. The first report of a negative culture is issued within 24 hours of receipt of the specimen in the laboratory. 2. Positive culture results are reported as soon as they are detected. 3. The most important factor for detection of microbes in the setting of bloodstream infection is the volume of blood submitted for culture. Failure to collect an optimal blood volume can result in false negative blood cultures. 4. For pediatric patients, the recommended blood volume to collect follows a weight based strategy. See the electronic test catalog for collection instructions. 5. For positive blood cultures, a rapid molecular test [...] have been verified by the [facility] Microbiology Laboratory. For questions about this culture, contact the Microbiology Laboratory at [phone]. Interpretive data was last revised on 24. [...] Susceptible Guille Wall MD LAB MICROBIOLOGY - [facility] Final Result [facility] ([facility]) 1 [facility] Department [place] [address] * Blood culture Blood (04/30/2024 8:47 PM FINANCIAL INSTITUTION TREASURER) Report Final Report: No growth Comment:Testing performed by : [facility], 1 [place]., [address] Blood 04/30/2024 8:47 PM FINANCIAL INSTITUTION TREASURER 05/01/2024 Narrative [facility] ([facility]) - 05/05/2024 7:00 AM FINANCIAL INSTITUTION TREASURER Collection->Peripheral 1. Blood cultures are incubated for 4 days on a continuously monitored blood culture system. The first report of a negative culture is issued within 24 hours of receipt of the specimen in the laboratory. 2. Positive culture results are reported as soon as they are detected. 3. The most important factor for detection of microbes in the setting of bloodstream infection is the volume of blood submitted for culture. Failure to collect an optimal blood volume can result in false negative blood cultures. 4. For pediatric patients, the recommended blood volume to collect follows a weight based strategy. See the electronic test catalog for collection instructions. 5. For positive blood cultures, a rapid molecular test [...] have been verified by the [facility] Microbiology Laboratory. For questions about this culture, contact the Microbiology Laboratory at [phone]. Interpretive data was last revised on 24. us Guille Wall MD LAB MICROBIOLOGY - GENERAL CARLISLEChely LARSEN Final Result [facility] D[facility]) 1 [facility] Department of Laboratories [place], [place] [id number] * MRI Lumbar Spine WO Contrast (04/30/2024 2:26 PM FINANCIAL INSTITUTION TREASURER) Anatomical Region Laterality Modality Spine N/A Magnetic Resonan ce 04/30/2024 4:06 PM FINANCIAL INSTITUTION TREASURER Narrative 04/30/2024 4:12 PM FINANCIAL INSTITUTION TREASURER EXAM DESCRIPTION: MRI LUMBAR SPINE WO CONTRAST REASON FOR STUDY: Nontraumatic lower back pain radiating down the left hip and leg with difficulty walking and standing for 2 weeks. No provided history of inciting event. TECHNIQUE: Sagittal and axial imaging of the lumbar spine includes T1, T2, STIR sequences. Images saved to PACS. COMPARISON: Relevant portions of CT abdomen pelvis with contrast 04/29/2024. FINDINGS: SEGMENTATION: No lumbosacral transitional anatomy. The lowest fully formed intervertebral disc level is labeled L5-S1. ALIGNMENT: Normal. VERTEBRAE: No MR evidence of acute-subacute fracture. Vertebral body heights maintained. Spondylosis. Scattered hemangiomas most prominent left eccentric L3 vertebral body, and patchy fatty marrow replacement about the osseous architecture. DISC HEIGHT: Multilevel variable intervertebral disc desiccation and loss of intervertebral disc height. HARDWARE: None in the lumbar spine. CORD/CAUDA: Normal in size and signal intensity with conus medullaris termination at L1-2. LOWER THORACIC: Incompletely imaged. No stenosis demonstrated. INDIVIDUAL DISC LEVELS: L1-2: No diffuse disc bulge or focal herniation. No spinal canal stenosis. No neural foraminal stenosis. L2-3: Mild annular disc bulge with slight annular fissure. Bilateral facet arthropathy. Mild ligamentum flavum thickening. No spinal canal stenosis. Mild bilateral inferior neural foraminal stenosis, noting variable slight disc contact with exiting bilateral L2 nerve roots. L3-4: Annular disc bulge with annular fissure. Bilateral hypertrophic facet arthropathy, noting fluid in the facet joints suggestive of facet synovitis. Mild ligamentum flavum thickening. Compromise of the bilateral lateral recesses, noting combination of disc and arthropathic facet contact with descending bilateral L4 nerve roots. Moderate spinal canal stenosis. Mild bilateral inferior neural foraminal stenosis, noting variable disc contact with the exiting bilateral L3 nerve roots. L4-5: Annular disc bulge with annular fissure. Bilateral hypertrophic facet arthropathy. Ligamentum flavum thickening. Compromise of the [...] L5-S1: Annular disc bulge with left subarticular-foraminal disc protrusion with annular fissure. Bilateral hypertrophic facet arthropathy. Compromise of the left lateral recesses, noting combination of disc and arthropathic facet contact with descending left S1 nerve root. No spinal canal stenosis. Moderate left and mild right neural foraminal stenosis, noting posterior cortical margin/disc variable contact with exiting bilateral L5 nerve roots. SACRUM: Visualized upper sacrum intact. VISUALIZED UPPER ABDOMEN: Within limitations of patient motion artifact, no gross evidence of acute abnormality. Please reference abdominopelvic CT imaging 1 day prior for further evaluation. OTHER: No other significant findings. IMPRESSION: Spondylosis and degenerative disc disease of the lumbar spine as detailed level by level above. THIS IS AN ELECTRONICALLY VERIFIED FINAL REPORT 04/30/2024 4:12 PM - Electronically signed by Bo Travis M.D. DORIS: DORIS Report ID: [id number] Reading Location: [place] [address] Procedure Note Bo Travis MD - 04/30/2024 [...] Relevant portions of CT abdomen pelvis with [id number]/19/2025. FINDINGS: SEGMENTATION: No lumbosacral transitional anatomy. The [...] Bo Travis M.D. DORIS: DORIS Report ID: [id number] Reading Location: [id number] us Zee Khan MD IMG MRI PROCEDURES Final Result * CT Abdomen Pelvis W Contrast (04/29/2024 9:22 AM FINANCIAL INSTITUTION TREASURER) Anatomical Region Laterality Modality Body N/A Computed Tomogra phy 04/29/2024 12:5 1 PM FINANCIAL INSTITUTION TREASURER Narrative 04/29/2024 12:58 PM FINANCIAL INSTITUTION TREASURER EXAM DESCRIPTION: CT ABDOMEN PELVIS W CONTRAST REASON FOR STUDY: Epigastric pain, alcohol abuse, abd pain Upper abdomen pain started yesterday, hx of hysterectomy and pancreatitis. TECHNIQUE: CT scan of the abdomen and pelvis performed with intravenous and without oral contrast using helical scanning technique with dynamic intravenous contrast injection. Reconstructed coronal and sagittal MPR images reviewed. All images stored on PACS. Automated exposure control was used as a dose optimization technique for this examination. CONTRAST TYPE/DOSE: 75mL of IOVERSOL 350 MG IODINE/ML INTRAVENOUS SYRINGE injected via intravenous COMPARISON: None FINDINGS: LOWER CHEST: An elongated opacity at the left lung base may represent some atelectasis. LIVER: Liver has a nodular surface due to cirrhosis. No mass was seen. GALLBLADDER: Stones. No wall thickening or pericholecystic fluid BILE DUCTS: No intrahepatic or extrahepatic ductal dilatation. SPLEEN: Normal size. No focal lesions. PANCREAS: No identified cystic or solid masses. No significant calcifications. No adjacent inflammation or peripancreatic fluid collections. Pancreatic duct not dilated. ADRENALS: Normal. KIDNEYS/URINARY TRACT: Kidneys function. There is no mass or hydronephrosis. A small benign cyst is seen in the right kidney. The urinary bladder is slightly distended. No mass was seen. GI: No dilated bowel loops. No obvious wall thickening. Normal appendix. No significant diverticular disease. There is a large amount of stool in the colon. PERITONEUM: No ascites or free air. RETROPERITONEUM: No mass or adenopathy. REPRODUCTIVE: No significant abnormality. VASCULATURE: No abdominal aortic aneurysm. MUSCULOSKELETAL: There is a nonspecific lytic lesion in the body of L3 on the left. The cause is unknown. OTHER: No other abnormality. IMPRESSION: Cholelithiasis. Large amount of stool in the colon. Nonspecific lytic lesion in the body of L3 on the left. Correlation with the patient's cancer history is recommended. Consider MRI of the lumbar spine. Distended bladder. Cirrhosis. Elongated opacity at the left lung base perhaps due to atelectasis. THIS IS AN ELECTRONICALLY VERIFIED FINAL REPORT 04/29/2024 12:58 PM - Electronically signed by Alphonso Chaudhry M.D. DORIS: DORIS Report ID: [id number] Reading Location: [place] [address] Procedure Note Dave Chaudhry MD - 04/29/2024 [...] Alphonso Chaudhry M.D. DORIS: DORIS Report ID: [id number] Reading Location: [id number] Zee Khan MD IMG CT PROCEDURES Final Result * eGFR (04/29/2024 4:53 AM FINANCIAL INSTITUTION TREASURER) eGFR >90 >=60 mL/min/1. 73 m2 Comment: Interpretive Data Reference Interval Normal >/= 90 mL/min/1.73m2 Mildly decreased* 60 - 89 mL/min/1.73m2 Mildly to moderately decreased 45 - 59 mL/min/1.73m2 Moderately to severely decreased 30 - 44 mL/min/1.73m2 Severely decreased 15 - 29 mL/min/1.73m2 Kidney Failure < 15 mL/min/1.73m2 *Relative to young adult level Estimated glomerular [...] last reviewed 2021. Blood 04/29/2024 4:53 AM FINANCIAL INSTITUTION TREASURER 04/29/2024 5:18 AM FINANCIAL INSTITUTION TREASURER us Zee Khan MD LAB BLOOD ORDERABLES Fin al Result [facility] ([facility]) 1 [facility] Department [place] [address] * Differential, auto (04/29/2024 4:53 AM FINANCIAL INSTITUTION TREASURER) Neutrophil abs 2.2 1.5 - 6.5 K/cumm [...] revised on 2017. Blood 04/29/2024 4:53 AM FINANCIAL INSTITUTION TREASURER 04/29/2024 5:17 AM FINANCIAL INSTITUTION TREASURER Zee Khan MD LAB BLOOD ORDERABLES Fin al Result [facility] ([facility]) 1 [facility] Department [place] [address] * (ABNORMAL) CBC with auto differential (04/29/2024 4:53 AM FINANCIAL INSTITUTION TREASURER) WBC 4.4 3.8 - 9.9 K/cumm Hgb 13.3 11.9 - 15.5 g/dL [facility] ([facility]) Hct 39.8 35.6 - 45.5 % [facility] ([facility]) Plt 119(L) 150 - 400 K/cumm [facility] ([facility]) MPV 10.1 9.1 - 12.3 fL [facility] ([facility]) RBC 4.08 3.90 - 5.20 M/cumm [facility] ([facility]) MCV 97.5(H) 81.3 - 96.4 fL [facility] ([facility]) MCH 32.6 27.1 - 33.3 pg [facility] ([facility]) MCHC 33.4 32.3 - 35.7 g/dL [facility] ([facility]) RDW CV 13.4 11.1 - 14.9 % [facility] ([facility]) RDW SD 47.5 35.7 - 48.1 fL [facility] ([facility]) NRBC abs 0.00 0.00 - 0.01 K/cumm [facility] ([facility]) Blood 04/29/2024 4:53 AM FINANCIAL INSTITUTION TREASURER 04/29/2024 5:17 AM FINANCIAL INSTITUTION TREASURER Zee Khan MD LAB BLOOD ORDERABLES Fin al Result Performing Organization Address City/[facility] Co de Phone Number [facility] ([facility]) 1 [facility] [place] [address] * (ABNORMAL) Phosphorus (04/29/2024 4:53 AM FINANCIAL INSTITUTION TREASURER) Phosphorus, pl 4.6(H) 2.3 - 4.5 mg/dL Blood 04/29/2024 4:53 AM FINANCIAL INSTITUTION TREASURER 04/29/2024 5:18 AM FINANCIAL INSTITUTION TREASURER Zee Khan MD LAB BLOOD ORDERABLES Fin al Result Performing Organization Address City/[facility] Co de Phone Number [facility] ([facility]) 1 [facility] [address] [place] [address] * Magnesium (04/29/2024 4:53 AM FINANCIAL INSTITUTION TREASURER) Magnesium 1.6 1.4 - 2.5 mg/dL Blood 04/29/2024 4:53 AM FINANCIAL INSTITUTION TREASURER 04/29/2024 5:18 AM FINANCIAL INSTITUTION TREASURER Zee Khan MD LAB BLOOD ORDERABLES Fin al Result Performing Organization Address City/[facility] Co de Phone Number [facility] ([facility]) 1 [facility] Department [place] [address] * Hepatic function panel (04/29/2024 4:53 AM FINANCIAL INSTITUTION TREASURER) Bilirubin, total 0.3 0.1 - 1.2 mg/dL Bilirubin, direct 0.1 0.1 - 0.3 mg/dL [facility] ([facility]) Protein, pl 6.9 6.5 - 8.5 g/dL [facility] ([facility]) Albumin 3.6 3.5 - 5.0 g/dL [facility] ([facility]) Alk phos 89 40 - 130 Units/L [facility] ([facility]) ALT 16 7 - 45 Units/L [facility] ([facility]) AST 27 10 - 45 Units/L [facility] ([facility]) Blood 04/29/2024 4:53 AM FINANCIAL INSTITUTION TREASURER 04/29/2024 5:18 AM FINANCIAL INSTITUTION TREASURER Zee Khan MD LAB BLOOD ORDERABLES Fin al Result Performing Organization Address [facility] Co de Phone Number [facility] ([facility]) 1 [facility] Department [place] [address] * Basic metabolic panel (04/29/2024 4:53 AM FINANCIAL INSTITUTION TREASURER) Sodium 139 135 - 145 mmol/L Potassium, pl 3.8 3.3 - 4.9 mmol/L [facility] ([facility]) Chloride 104 97 - 110 mmol/L [facility] ([facility]) CO2 25 22 - 32 mmol/L [facility] ([facility]) Anion gap 10 2 - 15 mmol/L [facility] ([facility]) BUN 23 6 - 25 mg/dL [facility] ([facility]) Creatinine 0.61 0.60 - 1.10 mg/dL [facility] ([facility]) Glucose 85 70 - 199 mg/dL [facility] ([facility]) Comment: Interpretive Data Fasting glucose >/= 126 mg/dl is diagnostic for diabetes. Fasting is defined as no caloric intake [...] [facility] ([facility]) Blood 04/29/2024 4:53 AM FINANCIAL INSTITUTION TREASURER 04/29/2024 5:18 AM FINANCIAL INSTITUTION TREASURER Zee Khan MD LAB BLOOD ORDERABLES Fin al Result Performing Organization Address City/[facility]/ZIP Co de Phone Number [facility] ([facility]) 1 [facility] [place] [address] * Lipase (04/28/2024 1:16 PM FINANCIAL INSTITUTION TREASURER) Pathologist [facility] Lipase 90 10 - 99 Units/L Blood 04/28/2024 1:16 PM FINANCIAL INSTITUTION TREASURER 04/28/2024 1:47 PM FINANCIAL INSTITUTION TREASURER Zee Khan MD LAB BLOOD ORDERABLES Fin al Result Performing Organization Address [facility] Co de Phone Number [facility] ([facility]) [address] [place] [address] [address] [place] [address] * Hepatic function panel (04/28/2024 1:16 PM FINANCIAL INSTITUTION TREASURER) Bilirubin, total 0.3 0.1 - 1.2 mg/dL Bilirubin, direct <0.1 0.1 - 0.3 mg/dL [facility] ([facility]) Comment: Hemolysis present. Results may be affected. Moderately Hemolyzed Specimen Protein, pl 7.0 6.5 - 8.5 g/dL [facility] ([facility]) Albumin 3.6 3.5 - 5.0 g/dL [facility] ([facility]) Alk phos 77 40 - 130 Units/L [facility] ([facility]) ALT 18 7 - 45 Units/L [facility] ([facility]) Comment: Hemolysis present. Results may be affected. Moderately Hemolyzed Specimen AST 35 10 - 45 Units/L [facility] ([facility]) Comment: Hemolysis present. Results may be affected. Moderately Hemolyzed Specimen Blood 04/28/2024 1:16 PM FINANCIAL INSTITUTION TREASURER 04/28/2024 2:18 PM FINANCIAL INSTITUTION TREASURER Zee Khan MD LAB BLOOD ORDERABLES Fin al Result Performing Organization Address [facility] Co de Phone Number [facility] (ALLI) 1 [facility] [place] [address] * eGFR (04/26/2024 8:41 AM FINANCIAL INSTITUTION TREASURER) eGFR >90 >=60 mL/min/1. 73 m2 Comment: Interpretive Data Reference Interval Normal >/= 90 mL/min/1.73m2 Mildly decreased* 60 - 89 mL/min/1.73m2 Mildly to moderately decreased 45 - 59 mL/min/1.73m2 Moderately to severely decreased 30 - 44 mL/min/1.73m2 Severely decreased 15 - 29 mL/min/1.73m2 Kidney Failure < 15 mL/min/1.73m2 *Relative to young adult level Estimated glomerular [...] last reviewed 2021. Blood 04/26/2024 8:41 AM FINANCIAL INSTITUTION TREASURER 04/26/2024 8:57 AM FINANCIAL INSTITUTION TREASURER us Maddie White MD LAB BLOOD ORDERABLES Maeve l Result Performing Organization Address City/[facility]/ZIP Co de Phone Number [facility] ([facility]) 1 [facility] [place] [address] * (ABNORMAL) CBC without differential (04/26/2024 8:41 AM FINANCIAL INSTITUTION TREASURER) WBC 6.4 3.8 - 9.9 K/cumm Hgb [...] [facility] ([facility]) Blood 04/26/2024 8:41 AM FINANCIAL INSTITUTION TREASURER 04/26/2024 8:57 AM FINANCIAL INSTITUTION TREASURER us Maddie White MD LAB BLOOD ORDERABLES Maeve l Result [facility] ([facility]) 1 [facility] Department [place] [address] * Comprehensive metabolic panel (04/26/2024 8:41 AM FINANCIAL INSTITUTION TREASURER) Sodium 138 135 - 145 mmol/L Potassium, [...] >/= 126 mg/dl is diagnostic for diabetes. Fasting is defined as no caloric intake [...] [facility] ([facility]) Blood 04/26/2024 8:41 AM FINANCIAL INSTITUTION TREASURER 04/26/2024 8:57 AM FINANCIAL INSTITUTION TREASURER us Maddie White MD LAB BLOOD ORDERABLES Maeve l Result [facility] 1 [facility] Department [place] [address] * eGFR (04/25/2024 8:53 AM FINANCIAL INSTITUTION TREASURER) eGFR >90 >=60 mL/min/1. 73 m2 Comment: Interpretive Data Reference Interval Normal >/= 90 mL/min/1.73m2 Mildly decreased* 60 - 89 mL/min/1.73m2 Mildly to moderately decreased 45 - 59 mL/min/1.73m2 Moderately to severely decreased 30 - 44 mL/min/1.73m2 Severely decreased 15 - 29 mL/min/1.73m2 Kidney Failure < 15 mL/min/1.73m2 *Relative to young adult level Estimated glomerular filtration rate is determined by the 2020 CKD-EPI equation recommended by the National Kidney Foundation (A Unifying Approach to GFR Estimation: Recommendations of the NKF-ASK Task Force on Reassessing the Inclusion of Race in Diagnosing Kidney Disease, JASN 202). The CKD-EPI equation should not be used for patients with unstable renal function and has not been validated in children and those over 70. Current interpretive data was last reviewed 2021. Blood 04/25/2024 8:53 AM FINANCIAL INSTITUTION TREASURER 04/25/2024 8:55 AM FINANCIAL INSTITUTION TREASURER us Chang Mckeon MD LAB BLOOD ORDERABLE S Final Result [facility] ([facility]) 1 [facility] Department [place] [address] * (ABNORMAL) Differential, auto (04/25/2024 8:53 AM FINANCIAL INSTITUTION TREASURER) Neutrophil abs 6.3 1.5 - 6.5 K/cumm [...] revised on 2017. Blood 04/25/2024 8:53 AM FINANCIAL INSTITUTION TREASURER 04/25/2024 8:55 AM FINANCIAL INSTITUTION TREASURER us Chang Mckeon MD LAB BLOOD ORDERABLE S Final Result [facility] ([facility]) 1 [facility] [place] [address] * (ABNORMAL) CBC with auto differential (04/25/2024 8:53 AM FINANCIAL INSTITUTION TREASURER) WBC 7.4 3.8 - 9.9 K/cumm Hgb 14.8 11.9 - 15.5 g/dL [facility] ([facility]) Hct 42.1 35.6 - 45.5 % [facility] ([facility]) Plt 123(L) 150 - 400 K/cumm [facility] ([facility]) MPV 10.9 9.1 - 12.3 fL [facility] ([facility]) RBC 4.53 3.90 - 5.20 M/cumm [facility] ([facility]) MCV 92.9 81.3 - 96.4 fL [facility] ([facility]) MCH 32.7 27.1 - 33.3 pg [facility] ([facility]) MCHC 35.2 32.3 - 35.7 g/dL [facility] ([facility]) RDW CV 13.1 11.1 - 14.9 % [facility] ([facility]) RDW SD 43.8 35.7 - 48.1 fL [facility] ([facility]) NRBC abs 0.00 0.00 - 0.01 K/cumm [facility] ([facility]) Blood 04/25/2024 8:53 AM FINANCIAL INSTITUTION TREASURER 04/25/2024 8:55 AM FINANCIAL INSTITUTION TREASURER us Chang Mckeon MD LAB BLOOD ORDERABLE S Final Result Performing Organization Address [facility] Co de Phone Number [facility] (DULAC) 1 [facility] [place] [address] * aPTT (04/25/2024 8:53 AM FINANCIAL INSTITUTION TREASURER) aPTT 29 28 - 38 sec [facility] (ALLI) Comment: Interpretive Data Heparin therapeutic range: 66.0 - 100.0 seconds. Range based on correlation with therapeutic heparin activity range of 0.3 - 0.7 Units/mL. Current interpretive data was last revised on 2023. Blood 04/25/2024 8:53 AM FINANCIAL INSTITUTION TREASURER 04/25/2024 5:58 PM FINANCIAL INSTITUTION TREASURER us Maddie White MD LAB BLOOD ORDERABLES Maeve l Result Performing Organization Address City/[facility]/ZIP Co de Phone Number [facility] ([place]AC) 1 [facility] [place] [address] * Protime-INR (04/25/2024 8:53 AM FINANCIAL INSTITUTION TREASURER) PT 11.5 9.7 - 13.0 sec [facility] ([facility]) INR 1.06 0.90 - 1.20 [facility] ([facility]I) Comment: Interpretive data Oral anticoagulant therapeutic ranges: Venous thromboembolism prophylaxis or treatment: 2.0-3.0 CARDIOLOGY Standard range: 2.0-3.0 High-intensity range: 2.5-3.5 Refer to indication-specific guidelines for appropriate target ranges for prosthetic heart valve replacement. Current interpretive data was last revised on 2019. Blood 04/25/2024 8:53 AM FINANCIAL INSTITUTION TREASURER 04/25/2024 5:58 PM FINANCIAL INSTITUTION TREASURER Maddie White MD LAB BLOOD ORDERABLES Maeve l Result Performing Organization Address City/[facility]/ZIP Co de Phone Number [facility] ([place]AC) 1 [facility] [place] [address] * Magnesium (04/25/2024 8:53 AM FINANCIAL INSTITUTION TREASURER) Magnesium 1.4 1.4 - 2.5 mg/dL Blood 04/25/2024 8:53 AM FINANCIAL INSTITUTION TREASURER 04/25/2024 9:56 AM FINANCIAL INSTITUTION TREASURER us Chang Mckeon MD LAB BLOOD ORDERABLE S Final Result Performing Organization Address [facility] de Phone Number [facility] ([facility]) [address] [facility] [place] [address] * (ABNORMAL) Ethanol (04/25/2024 8:53 AM FINANCIAL INSTITUTION TREASURER) Ethanol 59(H) <=10 mg/dL Comment: Interpretive Data Legal limit of intoxication > or = 80 mg/dL Levels > or = 400 mg/dL are potentially TOXIC. Current interpretive data was last revised on 2018. Blood 04/25/2024 8:53 AM FINANCIAL INSTITUTION TREASURER 04/25/2024 8:55 AM FINANCIAL INSTITUTION TREASURER Chang Mckeon MD LAB BLOOD ORDERABLE S Final Result Performing Organization Address City/[facility] Co de Phone Number [facility] ([facility]) 1 [facility] [address] [place] [address] * (ABNORMAL) Comprehensive metabolic panel (04/25/2024 8:53 AM FINANCIAL INSTITUTION TREASURER) Sodium 134(L) 135 - 145 mmol/L Potassium, [...] >/= 126 mg/dl is diagnostic for diabetes. Fasting is defined as no caloric intake [...] Hemolyzed S pecimen Blood 04/25/2024 8:53 AM FINANCIAL INSTITUTION TREASURER 04/25/2024 8:55 AM FINANCIAL INSTITUTION TREASURER us Chang Mckeon MD LAB BLOOD ORDERABLE S Final Result Performing Organization Address City/[facility]/ZIP Co de Phone Number [facility] ([place]) 1 [facility] Department [place] [address] * eGFR (04/25/2024 8:33 AM FINANCIAL INSTITUTION TREASURER) eGFR >90 >=60 mL/min/1. 73 m2 Comment: Interpretive Data Reference Interval Normal >/= 90 mL/min/1.73m2 Mildly decreased* 60 - 89 mL/min/1.73m2 Mildly to moderately decreased 45 - 59 mL/min/1.73m2 Moderately to severely decreased 30 - 44 mL/min/1.73m2 Severely decreased 15 - 29 mL/min/1.73m2 Kidney Failure < 15 mL/min/1.73m2 *Relative to young adult level Estimated glomerular [...] last reviewed 2021. Blood 04/25/2024 8:33 AM FINANCIAL INSTITUTION TREASURER 04/25/2024 8:41 AM FINANCIAL INSTITUTION TREASURER Jesenia Mckeon MD LAB BLOOD ORDERABLES Final Re sult Performing Organization Address City/[facility]/ZIP Co de Phone Number [facility] (ALLI) 1 [facility] [place] [address] * (ABNORMAL) Drugs of Abuse Screen, Urine without Confirmation (04/25/2024 8:33 AM FINANCIAL INSTITUTION TREASURER) Amphetamine, ur Screen Positive, presumptive (A) CutOff 500ng/mL Comment: Interpretive Data - Amphetamines: Samples containing greater than 500 ng/mL d-methamphetamine or other cross-reacting amphetamine compounds are reported as positive. Amphetamine immunoassays are subject to significant false positive rates due to cross-reactivity of non-amphetamine drugs. Confirmatory testing required for definitive results. Current Interpretive Data was last reviewed 2022. Barbiturates, ur Not Detected CutOff 200ng/mL [facility] ([facility]) Comment: Interpretive Data - Barbiturates: Samples containing greater than 200 ng/mL secobarbital or other cross-reacting barbiturate compounds are reported as positive. False positive and false negative results are possible. Confirmatory testing required for definitive results. Current Interpretive Data was last reviewed 2022. Benzodiazepines, ur Screen Positive, presumptive (A) CutOff 100ng/mL [facility] ([facility]) Comment: Interpretive Data - Benzodiazepines: Samples containing greater than 100 ng/mL nordiazepam or other cross-reacting compounds are reported as positive. False positive and false negative results are possible. Confirmatory testing required for definitive results. Current Interpretive Data was last reviewed 2022. Cannabinoids, ur Screen Positive, presumptive (A) CutOff 50 ng/mL [facility] ([facility]) Comment: Interpretive Data - Cannabinoids: Samples containing greater than 50 ng/mL delta-9 THC -COOH or other cross- reacting compounds are reported as positive. False positive and false negative results are possible. Confirmatory testing required for definitive results. Current Interpretive Data was last reviewed 2022. Cocaine, ur Not Detected CutOff 150ng/mL [facility] ([facility]) Comment: Interpretive Data - Cocaine: Samples containing greater than 150 ng/mL benzoylecgonine or other cross- reacting compounds are reported as positive. False positive and false negative results are possible. Confirmatory testing required for definitive results. Current Interpretive Data was last reviewed 2022. Fentanyl, Ur Not Detected CutOff 5 ng/mL [facility] ([facility]) Comment: Interpretive Data - Fentanyl: Samples containing greater than 5 ng/mL norfentanyl, fentanyl, or other cross-reacting fentanyl compounds are reported as positive. False positive and false negative results are possible. Confirmatory testing required for definitive results. Current Interpretive Data was last reviewed 2023. Methadone, ur Not Detected CutOff 300ng/mL [facility] ([facility]) Comment: Interpretive Data - Methadone: Samples containing greater than 300 ng/mL d,l-methadone or other cross-reacting compounds are reported as positive. False positive and false negative results are possible. Confirmatory testing required for definitive results. Current Interpretive Data was last reviewed 2022. Opiates, ur Not Detected CutOff 300ng/mL [facility] ([facility]I) Comment: Interpretive Data - Opiates: Samples containing greater than 300 ng/mL morphine or other cross-reacting compounds are reported as positive. False positive and false negative results are possible. Confirmatory testing required for definitive results. Current Interpretive Data was last reviewed 2022. Oxycodone, ur Not Detected CutOff 100ng/mL [facility] ([facility]I) Comment: Interpretive Data - Oxycodone: Samples containing greater than 100 ng/mL oxycodone or other cross-reacting compounds are reported as positive. False positive and false negative results are possible. Confirmatory testing required for definitive results. Current Interpretive Data was last reviewed 2022. Phencyclidine, ur Not Detected CutOff 25 ng/mL [facility] ([facility]I) Comment: Interpretive Data - Phencyclidine: Samples containing greater than 25 ng/mL phencyclidine or other cross-reacting compounds are reported as positive. False positive and false negative results are possible. Confirmatory testing required for definitive results. Current Interpretive Data was last reviewed 2022. Urine Creatinine 208 mg/dL [facility] (ALLI) Comment: Interpretive Data Urine Creatinine: < 10 mg/dL is extremely dilute = or > 10 but < 20 mg/dL is dilute = or > 20 mg/dL is normal Current Interpretive Data was last revised on 2017. Urine 04/25/2024 8:33 AM FINANCIAL INSTITUTION TREASURER 04/25/2024 8:43 AM FINANCIAL INSTITUTION TREASURER Narrative [facility] ([facility]I) - 04/25/2024 9:03 AM FINANCIAL INSTITUTION TREASURER Drug of Abuse screening is performed by immunoassay for medical purposes only. This is not to be used for Pain Management purposes. us Jesenia Mckeon MD LAB URINE ORDERABLES Final Re sult [facility] (ALLI) 1 [facility] Department [place] [address] * (ABNORMAL) CBC without differential (04/25/2024 8:33 AM FINANCIAL INSTITUTION TREASURER) WBC 7.3 3.8 - 9.9 K/cumm Hgb [...] NRBC abs 0.00 0.00 - 0.01 K/cumm [facility] Blood 04/25/2024 8:33 AM FINANCIAL INSTITUTION TREASURER 04/25/2024 8:41 AM FINANCIAL INSTITUTION TREASURER us Jesenia Mckeon MD LAB BLOOD ORDERABLES Final Re sult [facility] ([facility] 1 [facility] [place] [address] * (ABNORMAL) Comprehensive metabolic panel (04/25/2024 8:33 AM FINANCIAL INSTITUTION TREASURER) Sodium 135 135 - 145 mmol/L Potassium, [...] >/= 126 mg/dl is diagnostic for diabetes. Fasting is defined as no caloric intake [...] Hemolyzed S pecimen Blood 04/25/2024 8:33 AM FINANCIAL INSTITUTION TREASURER 04/25/2024 8:41 AM FINANCIAL INSTITUTION TREASURER us Jesenia Mckeon MD LAB BLOOD ORDERABLES Final Re sult [facility] ([facility]) 1 [facility] Department [place] [address] from Last 3 Months Insurance [employer] [facility] Advance Directives For more information, please contact: [phone] * Full Code (Latest Code Status on File) Date Activated Date Inactivated Comments 04/25/2024 5:41 PM 05/07/2024 7:44 PM Care Teams Material Yard Clerk Relationship Specialty Start Date End Date Bladimir Crowder MD [address] [place] [id number] PCP - General Family Medicine 04/25/24
--- OUTSIDE RECORDS SUMMARY | 2024-05-17 05:03 | XMS_ITS | Referral Summary ---
Author Organization [facility] Address [address] [place] [address] Care Team Providers Care Gauntlet Pairer Name Role Phone Bladimir Crowder MD Primary Care Provider [phone] Encounters Date Type Department Care Team Description 05/08/2024 Telephone [facility] Medical [facility] [id number] [place] [phone] Shara Yates, 05/07/2024 Documentation [facility] Warm Hand Off Program [address] [place], [place] [phone] Latrice Dumont 04/25/2024 10:50 AM PORCELAIN ENAMELER - 05/07/2024 3:39 PM PORCELAIN ENAMELER Hospital Encounter [facility] Medical Care [address] [place] [address] Maddie White MD Sargsyan, Narine, MD Sinha, Chandni, MD Abegunde, Veronica O., MD Nations, Matthew Austin, DO Alcohol withdrawal syndrome without complication (HCC) (Primary Dx); Unspecified mood disorder (HCC) Discharge Disposition: Discharge to home or self care 05/05/2024 Documentation [facility] Warm Hand Off Program [address] [place], [place] [phone] Hilario Jana EValentín 05/03/2024 Documentation [facility] Warm Hand Off Program [address] [place], [place] [phone] Hilario Jana EValentín 05/02/2024 Documentation [facility] Warm Hand Off Program [address] [place], [place] [phone] Latrice Dumont 05/01/2024 Documentation [facility] Warm Hand Off Program [address] [place] [phone] Hilario, Jana Emmanuel 04/30/2024 Documentation [facility] Warm Hand Off Program [address] [place], [place] [phone] Latrice Dumont 04/29/2024 Documentation [facility] Warm Hand Off Program [address] [place], [place] [phone] Latrice Dumont 04/27/2024 [facility] Enrollment [facility] Warm Hand Off Program [address] [place], [place] [phone] Hilario, Jana E. 04/25/2024 Documentation [facility] Warm Hand Off Program [address] [place], [place] [phone] Hilario, Jana E. 04/25/2024 Documentation [facility] Warm Hand Off Program [address] [place] [address] Hilario, Jana E. 04/25/2024 8:30 AM PORCELAIN ENAMELER Lab [address] [phone] 04/25/2024 10:30 AM PORCELAIN ENAMELER Hospital Encounter [facility] [address] [place] [phone] Jesenia Mckeon MD 04/23/2024 Documentation [facility] Warm Hand Off Program [address] [place] [address] Latrice Dumont from Last 3 Months Allergies [...] Comments Blood Pressure 118/80 05/07/2024 10:52 AM PORCELAIN ENAMELER Pulse 74 05/07/2024 10:52 AM PORCELAIN ENAMELER Temperature 36.6 C (97.9 F) 05/07/2024 10:52 AM PORCELAIN ENAMELER Respiratory Rate 20 05/07/2024 10:52 AM PORCELAIN ENAMELER Oxygen Saturation 91% 05/07/2024 10:52 AM PORCELAIN ENAMELER Inhaled Oxygen Concentration - - Weight 78.6 kg (173 lb 4.5 oz) 05/02/2024 1:12 AM PORCELAIN ENAMELER Height 165.1 cm (5' 5 ) 04/29/2024 3:24 PM PORCELAIN ENAMELER Body Mass Index 28.84 04/29/2024 3:24 PM PORCELAIN ENAMELER Plan of Treatment Not on file Procedures Procedure Name Priority Date/Time Associated Diagnosis Comments EGFR Routine 05/05/2024 12:12 PM PORCELAIN ENAMELER CBC WITHOUT DIFFERENTIAL Routine 05/05/2024 12:12 PM PORCELAIN ENAMELER COMPREHENSIVE METABOLIC PANEL Routine 05/05/2024 12:12 PM PORCELAIN ENAMELER TRANSTHORACIC ECHO (TTE) COMPLETE W DOPPLER/CF WO CONTRAST Routine 05/04/2024 7:30 AM PORCELAIN ENAMELER US UPPER EXTREMITY RIGHT LIMITED IP Routine 05/03/2024 2:05 PM PORCELAIN ENAMELER BLOOD CULTURE Routine 05/03/2024 1:35 PM PORCELAIN ENAMELER BLOOD CULTURE Routine 05/03/2024 11:25 AM PORCELAIN ENAMELER TROPONIN T HIGH-SENSITIVITY 6-HOUR Timed 05/02/2024 11:01 AM PORCELAIN ENAMELER TROPONIN T HIGH-SENSITIVITY 2-HOUR Timed 05/02/2024 6:37 AM PORCELAIN ENAMELER TROPONIN T HIGH-SENSITIVITY SERIES (BASELINE, 2HR, 4HR, 6HR) Routine 05/02/2024 4:17 AM PORCELAIN ENAMELER ECG 12-LEAD Routine 05/02/2024 2:17 AM PORCELAIN ENAMELER US ABDOMEN LIMITED IP Routine 05/01/2024 3: 50 PM PORCELAIN ENAMELER APTT STAT 05/01/2024 2:50 PM PORCELAIN ENAMELER PROTIME-INR STAT 05/01/2024 2:50 PM PORCELAIN ENAMELER URINALYSIS, MICROSCOPIC ONLY Routine 05/01/2024 10:44 AM PORCELAIN ENAMELER URINALYSIS AND REFLEX TO MICROSCOPIC AND CULTURE Routine 05/01/2024 10:44 AM PORCELAIN ENAMELER RESPIRATORY PATHOGEN PANEL Routine 05/01/2024 10:04 AM PORCELAIN ENAMELER XR CHEST 1 VIEW IP Routine 05/01/2024 9:53 AM PORCELAIN ENAMELER EGFR STAT 05/01/2024 8:52 AM PORCELAIN ENAMELER LACTATE STAT 05/01/2024 8:52 AM PORCELAIN ENAMELER COMPREHENSIVE METABOLIC PANEL STAT 05/01/2024 8:52 AM PORCELAIN ENAMELER CBC WITHOUT DIFFERENTIAL STAT 05/01/2024 8:52 AM PORCELAIN ENAMELER BLOOD CULTURE Routine 04/30/2024 8:47 PM PORCELAIN ENAMELER BLOOD CULTURE Routine 04/30/2024 8:47 PM PORCELAIN ENAMELER MRI LUMBAR SPINE WO CONTRAST IP Routine 04/30/2024 2:[address] ABDOMEN PELVIS W CONTRAST IP Routine 04/29/2024 9:22 AM PORCELAIN ENAMELER EGFR Routine 04/29/2024 4:53 AM PORCELAIN ENAMELER DIFFERENTIAL AUTO Routine 04/29/2024 4:5 3 AM PORCELAIN ENAMELER PHOSPHORUS Routine 04/29/2024 4:53 AM PORCELAIN ENAMELER MAGNESIUM Routine 04/29/2024 4:53 AM PORCELAIN ENAMELER HEPATIC FUNCTION PANEL Routine 04/29/2024 4:53 AM PORCELAIN ENAMELER CBC WITH AUTO DIFFERENTIAL Routine 04/29/2024 4:53 AM PORCELAIN ENAMELER BASIC METABOLIC PANEL Routine 04/29/2024 4:53 AM PORCELAIN ENAMELER HEPATIC FUNCTION PANEL Add-On 04/28/2024 1:16 PM PORCELAIN ENAMELER LIPASE STAT 04/28/2024 1:16 PM PORCELAIN ENAMELER EGFR Routine 04/26/2024 8:41 AM PORCELAIN ENAMELER COMPREHENSIVE METABOLIC PANEL Routine 04/26/2024 8:41 AM PORCELAIN ENAMELER CBC WITHOUT DIFFERENTIAL Routine 04/26/2024 8:41 AM PORCELAIN ENAMELER APTT STAT 04/25/2024 8:53 AM PORCELAIN ENAMELER PROTIME-INR STAT 04/25/2024 8:53 AM PORCELAIN ENAMELER MAGNESIUM Add-On 04/25/2024 8:53 AM PORCELAIN ENAMELER EGFR STAT 04/25/2024 8:53 AM PORCELAIN ENAMELER DIFFERENTIAL AUTO STAT 04/25/2024 8:5 3 AM PORCELAIN ENAMELER ETHANOL STAT 04/25/2024 8:53 AM PORCELAIN ENAMELER COMPREHENSIVE METABOLIC PANEL STAT 04/25/2024 8:53 AM PORCELAIN ENAMELER CBC WITH AUTO DIFFERENTIAL STAT 04/25/2024 8:53 AM PORCELAIN ENAMELER EGFR STAT 04/25/2024 8:33 AM PORCELAIN ENAMELER DRUGS OF ABUSE SCREEN, URINE WITHOUT CONFIRMATION Routine 04/25/2024 8:33 AM PORCELAIN ENAMELER CBC WITHOUT DIFFERENTIAL STAT 04/25/2024 8:33 AM PORCELAIN ENAMELER COMPREHENSIVE METABOLIC PANEL STAT 04/25/2024 8:33 AM PORCELAIN ENAMELER from Last 3 Months Results * eGFR (05/05/2024 12:12 PM PORCELAIN ENAMELER) eGFR >90 >=60 mL/min/1. 73 m2 Comment: [...] reviewed 2021. Blood 05/05/2024 12:1 2 PM PORCELAIN ENAMELER 05/05/2024 12:26 PM PORCELAIN ENAMELER Shara Serrano [facility] DO LAB BLOOD ORDERABLES F inal Result [facility] (ALLI) 1 [facility] Department [place] [address] * (ABNORMAL) CBC without differential (05/05/2024 12:12 PM PORCELAIN ENAMELER) WBC 4.3 3.8 - 9.9 K/cumm Hgb [...] [facility] (ALLI) Blood 05/05/2024 12:1 2 PM PORCELAIN ENAMELER 05/05/2024 12:26 PM PORCELAIN ENAMELER Shara Serrano [facility] DO LAB BLOOD ORDERABLES F inal Result [facility] ([place]) 1 [facility] Department [place] [address] * (ABNORMAL) Comprehensive metabolic panel (05/05/2024 12:12 PM PORCELAIN ENAMELER) Sodium 138 135 - 145 mmol/L Potassium, pl 4.1 3.3 - 4.9 mmol/L [facility] ([facility]) Chloride 104 97 - 110 mmol/L [facility] ([facility]) CO2 24 22 - 32 mmol/L [facility] ([facility]) Anion gap 11 2 - 15 mmol/L [facility] ([facility]) BUN 12 6 - 25 mg/dL [facility] ([facility]) Creatinine 0.45(L) 0.60 - 1.10 [...] [facility] (ALLI) Blood 05/05/2024 12:1 2 PM PORCELAIN ENAMELER 05/05/2024 12:26 PM PORCELAIN ENAMELER us Shara Yates DO LAB BLOOD ORDERABLES F inal Result [facility] ([place]) [address] [place] [address] Department [place] [address] * TRANSTHORACIC ECHO (TTE) COMPLETE W DOPPLER/CF WO CONTRAST (05/04/2024 7:30 AM PORCELAIN ENAMELER) LV EF 60-65 % CONS SCIMAGE Anatomical Region Laterality Modality Ultrasound 05/04/2024 7:13 AM PORCELAIN ENAMELER Narrative 05/04/2024 4:47 PM PORCELAIN ENAMELER [address] [address] Echocardiogram Report Patient Name: LATRICE VALENCIA : 1975 Study Date: 05/04/2024 7:13:46 AM Gender: F Tech: Location: [id number] Ref Provider: SHARA YATES Height(Cm): 165 BSA: [...] By: Kwaku Blanco MD 05/04/2024 4:46:44 PM PORCELAIN ENAMELER Procedure Note Kwaku Blanco MD - 05/04/[address] [address] Echocardiogram Report Patient Name: LATRICE VALENCIA : 1975 Study Date: 05/04/2024 7:13:46 AM Gender: F Tech: Location: [id number] Ref Provider: SHARA YATES Height(Cm): 165 BSA: [...] By: Kwaku Blanco MD 05/04/2024 4:46:44 PM PORCELAIN ENAMELER us Shara Yates DO CV ECHO PROCEDURES Fin al Result * US Upper Extremity Right Limited (05/03/2024 2:05 PM PORCELAIN ENAMELER) Anatomical Region Laterality Modality Upper Extremities Right Ultrasound 05/03/2024 4:48 PM PORCELAIN ENAMELER Narrative 05/03/2024 4:51 PM PORCELAIN ENAMELER EXAM DESCRIPTION: US UPPER EXTREMITY RIGHT LIMITED REASON FOR STUDY: Patient with cellulitis at site of right forearm prior IV site. Firmness at this area, wanting to rule out an abscess. TECHNIQUE: A Dynamic assessment was performed of the soft tissues in the right elbow region by the operations supervisor 2nd shift, with selected grayscale and color Doppler images acquired and recorded in PACS. COMPARISON: None FINDINGS: Thrombus is seen within a superficial vein within the region of concern, with prominent peripheral vascularity. IMPRESSION: Superficial thrombophlebitis within the region of concern. THIS IS AN ELECTRONICALLY VERIFIED FINAL REPORT 05/03/2024 4:51 PM - Electronically signed by Boyd Cook M.D. KR: KR Report ID: [id number] Reading Location: [id number] Procedure Note Boyd Cook MD - 05/03/2024 EXAM DESCRIPTION: US UPPER EXTREMITY RIGHT LIMITED REASON FOR STUDY: Patient with cellulitis at site of right forearm priorIV site. Firmness at this area, wanting to rule out an abscess. TECHNIQUE: A Dynamic assessment was performed of the soft tissues in theright elbow region by the operations supervisor 2nd shift, with selected grayscale and color Doppler images acquired and recorded in PACS. COMPARISON: None FINDINGS: Thrombus is seen within a superficial vein within the region of concern,with prominent peripheral vascularity. IMPRESSION: Superficial thrombophlebitis within the region of concern. THIS IS AN ELECTRONICALLY VERIFIED FINAL REPORT 05/03/2024 4:51 PM - Electronically signed by Boyd Cook M.D. KR: KR Report ID: [id number] Reading Location: [place] [address] Shara Serrano [facility] DO IMG US PROCEDURES Maeev l Result * Blood culture Blood (05/03/2024 1:35 PM PORCELAIN ENAMELER) Report Final Report: No growth Comment:Testing performed by : [facility], [address] [place]., [address] Blood 05/03/2024 1:35 PM PORCELAIN ENAMELER 05/03/2024 4:30 PM PORCELAIN ENAMELER Narrative [facility] ([facility]I) - 05/08/2024 7:00 AM PORCELAIN ENAMELER From a different site than #1. Collection->Peripheral [...] characteristics have been verified by the [facility] Microbiology [facility]. For questions about this culture, contact the Microbiology Laboratory at [phone]. Interpretive data was last revised on 24. us Shara Yates DO LAB MICROBIOLOGY - GEN ERAL ORDERABLES Final Result AMIE JURADO) 1 [facility] [place] [address] * Blood culture Blood (05/03/2024 11:25 AM PORCELAIN ENAMELER) Report Final Report: No growth Comment:Testing performed by : [facility], [address] [place]., [address] Blood 05/03/2024 11:2 5 AM PORCELAIN ENAMELER 05/03/2024 1:53 PM PORCELAIN ENAMELER Narrative AMIE JURADO) - 05/07/2024 4:00 PM PORCELAIN ENAMELER Collection->Peripheral 1. Blood cultures are incubated for [...] characteristics have been verified by the [facility]. For questions about this culture, contact the Microbiology Laboratory at [phone]. Interpretive data was last revised on 24. Shara Yates DO LAB MICROBIOLOGY - GEN ERAL ORDERABLES Final Result [facility] (ALLI) 1 [facility] [email or web address] [address] * Troponin T high-sensitivity 6-hour (05/02/2024 11:01 AM PORCELAIN ENAMELER) Trop T hs <6 <=14 ng/L Comment: Interpretive Data For further hscTnT resources including the diagnostic algorithm and an aid in interpretation, copy and paste this link: https://nrl.[employer].org/show/hsTrop Current Interpretive Data last revised 2020. Trop T hs delta 0 ng/L [facility] (ALLI) Trop T hs interp Insignificant [facility] ([place]) Blood 05/02/2024 11:0 1 AM PORCELAIN ENAMELER 05/02/2024 11:11 AM PORCELAIN ENAMELER us Guille Wall MD LAB BLOOD ORDERABLES Final Resu lt Performing Organization Address City/[facility]/ZIP Co de Phone Number [facility]IE RE[facility] ([place]) [address] [place] [address] [place] [address] * Troponin T high-sensitivity 2-hour (05/02/2024 6:37 AM PORCELAIN ENAMELER) Pathologist [facility] Trop T hs <6 <=14 ng/L Comment: Interpretive Data For further hscTnT resources including the diagnostic algorithm and an aid in interpretation, copy and paste this link: https://nrl.[employer].org/show/hsTrop Current Interpretive Data last revised 2020. Trop T hs delta 0 ng/L [facility] ([facility]I) Trop T hs interp Insignificant [facility] ([place]I) Blood 05/02/2024 6:37 AM PORCELAIN ENAMELER 05/02/2024 7:06 AM PORCELAIN ENAMELER us Guille Wall MD LAB BLOOD ORDERABLES Final Resu lt [facility] (ALLI) 1 [facility] [place] [address] * Troponin T high-sensitivity series (baseline, 2hr, 4hr, 6hr) (05/02/2024 4:17 AM PORCELAIN ENAMELER) Pathologist [facility] Trop T hs <6 <=14 ng/L Comment: Interpretive Data For further hscTnT resources including the diagnostic algorithm and an aid in interpretation, copy and paste this link: https://nrl.[employer].org/show/hsTrop Current Interpretive Data last revised 2020. Blood 05/02/2024 4:17 AM PORCELAIN ENAMELER 05/02/2024 4:40 AM PORCELAIN ENAMELER us Guille Wall MD LAB BLOOD ORDERABLES Final Resu lt Performing Organization Address [facility] Co de Phone Number [facility] ([place]) [address] [place] [address] Department [place] [address] * ECG 12 lead (05/02/2024 2:17 AM PORCELAIN ENAMELER) 05/02/2024 2:17 AM PORCELAIN ENAMELER Narrative [facility] - 05/02/2024 7:39 AM PORCELAIN ENAMELER Vent Rate: 73 bpm RR Interval: 816 msec WA Interval: 180 msec QRS Duration: 84 msec QT Interval: 397 msec QTC Interval: 423 msec P-R-T Callaway: 40 - -21 - 31 degrees IMPRESSION: SINUS RHYTHM WITH SINUS ARRHYTHMIA BORDERLINE LEFT AXIS DEVIATION [QRS AXIS < -20] BORDERLINE ECG Electronically Signed By: Kwaku Blanco MD us Guille Wall MD ECG ORDERABLES Final Result Performing Organization Address [facility] de Phone Number [facility] * US Abdomen Limited (05/01/2024 3:50 PM PORCELAIN ENAMELER) Anatomical Region Laterality Modality Abdomen N/A Ultrasound 05/01/2024 5:06 PM PORCELAIN ENAMELER Narrative 05/01/2024 5:08 PM PORCELAIN ENAMELER EXAM DESCRIPTION: US ABDOMEN LIMITED REASON FOR [...] Boyd Caldwell M.D. KT: KARINA Report ID: [id number] Reading Location: [id number] Procedure Note Boyd Caldwell MD - 05/01/2024 [...] Boyd Caldwell M.D. KT: KARINA Report ID: [id number] Reading Location: [place] [address] Shara Yates DO IMG US PROCEDURES Maeve l Result * aPTT (05/01/2024 2:50 PM PORCELAIN ENAMELER) aPTT 34 28 - 38 sec [facility] (ALLI) Comment: Interpretive Data Heparin therapeutic range: 66.0 - 100.0 seconds. Range based on correlation with therapeutic heparin activity range of 0.3 - 0.7 Units/mL. Current interpretive data was last revised on 2023. Blood 05/01/2024 2:50 PM PORCELAIN ENAMELER 05/01/2024 3:05 PM PORCELAIN ENAMELER Shara Yates DO LAB BLOOD ORDERABLES F inal Result [facility] (ALLI) 1 [facility] Department [place] [address] * (ABNORMAL) Protime-INR (05/01/2024 2:50 PM PORCELAIN ENAMELER) PT 14.9(H) 9.7 - 13.0 sec [facility] (ALLI) INR 1.37(H) 0.90 - 1.20 [facility] (ALLI) Comment: Interpretive data Oral anticoagulant therapeutic ranges: Venous thromboembolism prophylaxis or treatment: 2.0-3.0 CARDIOLOGY Standard range: 2.0-3.0 High-intensity range: 2.5-3.5 Refer to indication-specific guidelines for appropriate target ranges for prosthetic heart valve replacement. Current interpretive data was last revised on 2019. Blood 05/01/2024 2:50 PM PORCELAIN ENAMELER 05/01/2024 3:05 PM PORCELAIN ENAMELER Shara Serrano [facility] DO LAB BLOOD ORDERABLES F inal Result [facility] (ALLI) 1 [facility] Department [place] [address] * (ABNORMAL) Urinalysis reflex to microscopic and culture Urine (05/01/2024 10:44 AM PORCELAIN ENAMELER) Color, ur Yellow Yellow Clarity, ur Clear Clear [facility] (ALLI) Specific gravity, ur 1.017 1.003 - 1.030 [facility] ([place]) pH, urine 6.0 [facility] (ALLI) Comment: Interpretive Data U rine pH is affected by diet, medications, systemic acid-base disturbances, and renal tubular function. pH may affect urinary stone formation. For example, urine pH below 6.0 may help reduce the tendency for calcium phosphate stones and pH greater than 6.0 may reduce the tendency for uric acid stone formation. Source: [facility] [employer] Current Interpretive Data was last revised on [...] Reflex to microscopic UA will be performed. [facility] (ALLI) Urine 05/01/2024 10:4 4 AM PORCELAIN ENAMELER 05/01/2024 10:50 AM PORCELAIN ENAMELER [facility] LAB MICROBIOLOGY - GEN ERAL ORDERABLES Final Result Performing Organization Address [facility] Co de Phone Number AMIE RE[facility]E (ALLI) 1 [facility] [place] [address] * (ABNORMAL) Urinalysis, microscopic only (05/01/2024 10:44 AM PORCELAIN ENAMELER) WBC, ur 0-5 0 - 5 /HPF RBC, ur 0-2 0 - 2 /HPF [facility] (ALLI) Epithelial cells, squamous, ur 11-20(A) 0 - 5 /HPF [facility] ([facility] Bacteria, ur Trace(A) [facility] ([place]) Mucous, ur Present(A) [facility] (ALLI) Culture Reflex Comment Reflex conditions for urine culture (WBC >10) not met. [facility] (ALLI) Urine 05/01/2024 10:4 4 AM PORCELAIN ENAMELER 05/01/2024 10:50 AM PORCELAIN ENAMELER [facility] LAB URINE ORDERABLES F inal Result Performing Organization Address [facility]/ZIP Co de Phone Number [facility] (ALLI) 1 [facility] [email or web address] [address] * Respiratory pathogen panel Nasopharyngeal (05/01/2024 10:04 AM PORCELAIN ENAMELER) Influenza A RNA Not Detected Not Detected CH Comment:Testing performed by : [facility], [address] [place] [address], [place]., [address] Influenza B RNA Not Detected Not Detected [facility] ([facility]I) Comment:Testing performed by : [facility], [address] [place] [address]., [address] RSV RNA Not Detected Not Detected [facility] ([facility]I) Comment:Testing performed by : [facility], [address] [place] [address]., [address] COVID-19 RNA Not Detected Not Detected [facility] ([facility]I) Comment:Testing performed by : [facility], [address] [place] [address]., [address] Coronavirus 229E RNA Not Detected Not Detected [facility] ([facility]I) Comment:Testing performed by : [facility], [address] [place] [address]., [address] Coronavirus HKU1 RNA Not Detected Not Detected [facility] ([facility]I) Comment:Testing performed by : [facility], [address] [place] [address], [address] Coronavirus NL63 RNA Not Detected Not Detected [facility] ([facility]I) Comment:Testing performed by : [facility], [address] [place] [address], [address] Coronavirus OC43 RNA Not Detected Not Detected [facility] ([facility]I) Comment:Testing performed by : [facility], [address] [place] [address]., [address] Adenovirus DNA Not Detected Not Detected [facility] (ALLI) Comment:Testing performed by : [facility], [address] [place] [address], [address] Metapneumovirus RNA Not Detected Not Detected [facility] ([facility]I) Comment:Testing performed by : [facility], [address] [place] [address], [address] Rhinovirus/Enterov irus RNA Not Detected Not Detected [facility] (ALLI) Comment:Testing performed by : [facility], [address] [place] [address]., [address] Parainfluenza 1 RNA Not Detected Not Detected [facility] (ALLI) Comment:Testing performed by : [facility], [address] [place] [address], [address] Parainfluenza 2 RNA Not Detected Not Detected [facility] (ALLI) Comment:Testing performed by : [facility], [address] [place] [address], [address] Parainfluenza 3 RNA Not Detected Not Detected [facility] (ALLI) Comment:Testing performed by : [facility], [address] [place] [address]., [address] Parainfluenza 4 RNA Not Detected Not Detected [facility] (ALLI) Comment:Testing performed by : [facility], [address] [place] [address]., [address] B. pertussis DNA Not Detected Not Detected [facility] (ALLI) Comment:Testing performed by : [facility], [address] [place] [address]., [address] B. parapertussis DNA Not Detected Not Detected [facility] (ALLI) Comment:Testing performed by : [facility], [address] [place] [address]., [address] C. pneumoniae DNA Not Detected Not Detected [facility] (ALLI) Comment:Testing performed by : [facility], [address] [place] [address]., [address] M. pneumoniae DNA Not Detected Not Detected [facility] (ALLI) Comment: Interpretive Data The [employer] Film[employer] Respiratory Panel (RP2.1) assay is a [...] assay has FDA clearance for testing of PHOTO TECHNOLOGIST swabs. The performance characteristics of this assay have been determined by [facility]. Current interpretive data was last revised on 2020. Testing performed by: [facility], [address] [place] [address]., [id number] Nasopharyngeal 05/01/2024 10 :04 AM PORCELAIN ENAMELER 05/01/2024 11:23 AM PORCELAIN ENAMELER Narrative [facility] (ALLI) - 05/01/2024 12:24 PM PORCELAIN ENAMELER Is the Patient experiencing symptoms consistent with COVID?->Yes Surveillance testing for transplant patient?->No Shara Serrano [facility] DO LAB MICROBIOLOGY - GEN ERAL ORDERABLES Final Result [facility] (ALLI) 1 [facility] Department [place] [address] CH * XR CHEST 1 VIEW PORTABLE (05/01/2024 9:53 AM PORCELAIN ENAMELER) Anatomical Region Laterality Modality Body, Chest N/A Computed Radiogr aphy 05/01/2024 12:2 9 PM PORCELAIN ENAMELER Narrative 05/01/2024 12:30 PM PORCELAIN ENAMELER EXAM DESCRIPTION: XR CHEST 1 VIEW REASON [...] Dong Thorne M.D. RB: ADALID Report ID: [id number] Reading Location: [id number] Procedure Note Dong Thorne MD - 05/01/2024 [...] Dong Thorne M.D. RB: ADALID Report ID: [id number] Reading Location: [id number] Shara Yates DO IMG XR PROCEDURES Maeve l Result * Lactate (05/01/2024 8:52 AM PORCELAIN ENAMELER) Lactate 1.3 0.7 - 2.0 mmol/L Blood 05/01/2024 8:52 AM PORCELAIN ENAMELER 05/01/2024 9:01 AM PORCELAIN ENAMELER us Shara Yates DO LAB BLOOD ORDERABLES F inal Result [facility] ([place]) 1 [facility] Department [place] [address] * eGFR (05/01/2024 8:52 AM PORCELAIN ENAMELER) eGFR >90 >=60 mL/min/1. 73 m2 Comment: [...] last reviewed 2021. Blood 05/01/2024 8:52 AM PORCELAIN ENAMELER 05/01/2024 9:40 AM PORCELAIN ENAMELER Shara Yates DO LAB BLOOD ORDERABLES F inal Result [facility]IE [facility] ([place]) 1 [facility] Department [place] [address] * (ABNORMAL) CBC without differential (05/01/2024 8:52 AM PORCELAIN ENAMELER) Pathologist [facility] WBC 6.4 3.8 - 9.9 K/cumm Hgb 13.5 11.9 - 15.5 g/dL [facility] ([place]) Hct 39.8 35.6 - 45.5 % [facility] ([place]) Plt 71(L) 150 - 400 K/cumm [facility] ([place]) Comment:No clot detected in sample. MPV 9.8 9.1 - 12.3 fL [facility] ([place]) RBC 4.08 3.90 - 5.20 M/cumm [facility] ([place]) MCV 97.5(H) 81.3 - 96.4 fL [facility] ([place]) MCH 33.1 27.1 - 33.3 pg [facility] ([place]) MCHC 33.9 32.3 - 35.7 g/dL [facility] ([place]) RDW CV 13.8 11.1 - 14.9 % [facility] ([place]) RDW SD 49.1(H) 35.7 - 48.1 fL [facility] ([place] NRBC abs 0.00 0.00 - 0.01 K/cumm [facility] Blood 05/01/2024 8:52 AM PORCELAIN ENAMELER 05/01/2024 9:40 AM PORCELAIN ENAMELER Shara Yates DO LAB BLOOD ORDERABLES F inal Result [facility] 1 [facility] Department [place] [address] * (ABNORMAL) Comprehensive metabolic panel (05/01/2024 8:52 AM PORCELAIN ENAMELER) Sodium 132(L) 135 - 145 mmol/L Potassium, pl 3.6 3.3 - 4.9 mmol/L [facility] Chloride 100 97 - 110 mmol/L [facility] CO2 20(L) 22 - 32 mmol/L [facility] ([place]) Anion gap 12 2 - 15 mmol/L [facility] BUN 12 6 - 25 mg/dL [facility] Creatinine 0.62 0.60 - 1.10 mg/dL [facility] ([place]) Glucose 117 70 - 199 mg/dL [facility] ([place] Comment: Interpretive Data Fasting glucose [...] [facility] ([place]) Blood 05/01/2024 8:52 AM PORCELAIN ENAMELER 05/01/2024 9:40 AM PORCELAIN ENAMELER Shara Serrano [facility] DO LAB BLOOD ORDERABLES F inal Result [facility] ([place]) 1 [facility] Department [place] [address] * (ABNORMAL) Blood culture Blood (04/30/2024 8:47 PM PORCELAIN ENAMELER) Direct Specimen Exam Molecular Analysis: Methicillin-suscep tible Staphylococcus aureus (MSSA) detected by the maxx ePlex BCID-GP panel. This test does not exclude the possibility of a mixed bacterial infection. Notification of: Methicillin-suscep tible Staphylococcus aureus (MSSA) called to and read back by: Latrice Wellington MLS ([phone]) on 05/02/2024 01:41:52 by: Fritz Kebede MLS Comment:Testing performed by : [facility], 1 [facility], [place]., [address] Direct Specimen Exam Stain: Gram Positive Cocci in clusters Time to culture positivity (anaerobic media): 22.7 hours Notification of: Gram Positive Cocci in clusters called to and read back by: Latrice Wellington MLS ([phone]) on 05/01/2024 23:41:23 by: Fritz Kebede, MLS Test result called to and read back by fabio stephenson on 05/02/2024 00:23:23 by latrice RENAE ([place]) Comment:Testing performed by : [facility], [address] [place] [address] Report Final Report: Staphylococcus aureus Methicillin susceptible (MSSA) by penicillin binding protein 2a (PBP2a) testing. (.) AMIE RE[facility]E ([place]) Comment:Testing performed by : [facility], [address] [place] [address] Organism STAPHYLOCOCCUS AUREUS AMIE [facility] ([place]) Blood 04/30/2024 8:47 PM PORCELAIN ENAMELER 05/01/2024 Narrative AMIE RE[facility] ([place]) - 05/06/2024 1:15 PM PORCELAIN ENAMELER From a different site than #1. Collection->Peripheral [...] characteristics have been verified by the [facility]. For questions about this culture, contact the Microbiology Laboratory at [phone]. Interpretive data was last revised on 24. [...] Susceptible Guille Wall MD LAB MICROBIOLOGY - [facility] Final Result AMIE J[facility]AD[facility]) 1 [facility] Department [place] [address] * Blood culture Blood (04/30/2024 8:47 PM PORCELAIN ENAMELER) Report Final Report: No growth Comment:Testing performed by : [facility], 1 [facility] [place] [address] Blood 04/30/2024 8:47 PM PORCELAIN ENAMELER 05/01/2024 Narrative AMIE [facility] ([place]) - 05/05/2024 7:00 AM PORCELAIN ENAMELER Collection->Peripheral 1. Blood cultures are incubated for [...] characteristics have been verified by the [facility]. For questions about this culture, contact the Microbiology Laboratory at [phone]. Interpretive data was last revised on 24. Guille Wall MD LAB MICROBIOLOGY - [facility] Final Result [facility] [place]) 1 [facility] Department of Laboratories [place], [place] [id number] * MRI Lumbar Spine WO Contrast (04/30/2024 2:26 PM PORCELAIN ENAMELER) Anatomical Region Laterality Modality Spine N/A Magnetic Resonan ce 04/30/2024 4:06 PM PORCELAIN ENAMELER Narrative 04/30/2024 4:12 PM PORCELAIN ENAMELER EXAM DESCRIPTION: MRI LUMBAR SPINE WO CONTRAST [...] Bo Travis M.D. DORIS: DORIS Report ID: [id number] Reading Location: [place] [address] Procedure Note Bo Travis MD - 04/30/2024 [...] Relevant portions of CT abdomen pelvis with edoyczjh38/19/2025. FINDINGS: SEGMENTATION: No lumbosacral transitional anatomy. The [...] Bo Travis M.D. DORIS: DORIS Report ID: [id number] Reading Location: [place] [address] Zee Khan MD IMG MRI PROCEDURES Final Result * CT Abdomen Pelvis W Contrast (04/29/2024 9:22 AM PORCELAIN ENAMELER) Anatomical Region Laterality Modality Body N/A Computed Tomogra phy 04/29/2024 12:5 1 PM PORCELAIN ENAMELER Narrative 04/29/2024 12:58 PM PORCELAIN ENAMELER EXAM DESCRIPTION: CT ABDOMEN PELVIS W CONTRAST [...] Alphonso Chaudhry M.D. DORIS: DORIS Report ID: [id number] Reading Location: [id number] Procedure Note Dave Chaudhry MD - 04/29/2024 [...] Alphonso Chaudhry M.D. DORIS: DORIS Report ID: [id number] Reading Location: [id number] Zee Khan MD IMG CT PROCEDURES Final Result * eGFR (04/29/2024 4:53 AM PORCELAIN ENAMELER) eGFR >90 >=60 mL/min/1. 73 m2 Comment: [...] last reviewed 2021. Blood 04/29/2024 4:53 AM PORCELAIN ENAMELER 04/29/2024 5:18 AM PORCELAIN ENAMELER us Zee Khan MD LAB BLOOD ORDERABLES Fin al Result [facility] ([place]) 1 [facility] Department [place] [address] * Differential, auto (04/29/2024 4:53 AM PORCELAIN ENAMELER) Neutrophil abs 2.2 1.5 - 6.5 K/cumm [...] revised on 2017. Blood 04/29/2024 4:53 AM PORCELAIN ENAMELER 04/29/2024 5:17 AM PORCELAIN ENAMELER us Zee Khan MD LAB BLOOD ORDERABLES Fin al Result [facility] ([place]) 1 [facility] Department [place] [address] * (ABNORMAL) CBC with auto differential (04/29/2024 4:53 AM PORCELAIN ENAMELER) WBC 4.4 3.8 - 9.9 K/cumm Hgb [...] [facility] ([place]) Blood 04/29/2024 4:53 AM PORCELAIN ENAMELER 04/29/2024 5:17 AM PORCELAIN ENAMELER Zee Khan MD LAB BLOOD ORDERABLES Fin al Result Performing Organization Address City/[facility] Co de Phone Number AMIE RE[facility]E ([place]) 1 [facility] [place] [address] * (ABNORMAL) Phosphorus (04/29/2024 4:53 AM PORCELAIN ENAMELER) Phosphorus, pl 4.6(H) 2.3 - 4.5 mg/dL Blood 04/29/2024 4:53 AM PORCELAIN ENAMELER 04/29/2024 5:18 AM PORCELAIN ENAMELER Zee Khan MD LAB BLOOD ORDERABLES Fin al Result Performing Organization Address [facility] de Phone Number AMIE [facility] ([place]) 1 [facility] [place] [address] * Magnesium (04/29/2024 4:53 AM PORCELAIN ENAMELER) Magnesium 1.6 1.4 - 2.5 mg/dL Blood 04/29/2024 4:53 AM PORCELAIN ENAMELER 04/29/2024 5:18 AM PORCELAIN ENAMELER Zee Khan MD LAB BLOOD ORDERABLES Fin al Result Performing Organization Address [facility] Co de Phone Number [facility]IE [facility] ([place]) 1 [facility] [place] [address] * Hepatic function panel (04/29/2024 4:53 AM PORCELAIN ENAMELER) Bilirubin, total 0.3 0.1 - 1.2 mg/dL Bilirubin, direct 0.1 0.1 - 0.3 mg/dL [facility] ([place] Protein, pl 6.9 6.5 - 8.5 g/dL [facility] ([place]) Albumin 3.6 3.5 - 5.0 g/dL [facility] ([place]) Alk phos 89 40 - 130 Units/L [facility] ([place]) ALT 16 7 - 45 Units/L [facility] ([place]) AST 27 10 - 45 Units/L [facility] ([place]) Blood 04/29/2024 4:53 AM PORCELAIN ENAMELER 04/29/2024 5:18 AM PORCELAIN ENAMELER us Zee Khan MD LAB BLOOD ORDERABLES Fin al Result [facility] ([place]) 1 [facility] Department [place] [address] * Basic metabolic panel (04/29/2024 4:53 AM PORCELAIN ENAMELER) Sodium 139 135 - 145 mmol/L Potassium, [...] [facility] ([place]) Blood 04/29/2024 4:53 AM PORCELAIN ENAMELER 04/29/2024 5:18 AM PORCELAIN ENAMELER Zee Khan MD LAB BLOOD ORDERABLES Fin al Result Performing Organization Address City/[facility]/ZIP Co de Phone Number AMIE [facility] ([place]) 1 [facility] [place] [address] * Lipase (04/28/2024 1:16 PM PORCELAIN ENAMELER) Lipase 90 10 - 99 Units/L Blood 04/28/2024 1:16 PM PORCELAIN ENAMELER 04/28/2024 1:47 PM PORCELAIN ENAMELER Zee Khan MD LAB BLOOD ORDERABLES Fin al Result Performing Organization Address [facility] de Phone Number AMIE [facility] ([place]) 1 [facility] [place] [address] * Hepatic function panel (04/28/2024 1:16 PM PORCELAIN ENAMELER) Bilirubin, total 0.3 0.1 - 1.2 mg/dL [...] Moderately Hemolyzed Specimen Blood 04/28/2024 1:16 PM PORCELAIN ENAMELER 04/28/2024 2:18 PM PORCELAIN ENAMELER Zee Khan MD LAB BLOOD ORDERABLES Fin al Result Performing Organization Address City/[facility] Co de Phone Number AMIE [facility] ([place]) [address] Department [place] [address] * eGFR (04/26/2024 8:41 AM PORCELAIN ENAMELER) eGFR >90 >=60 mL/min/1. 73 m2 Comment: [...] last reviewed 2021. Blood 04/26/2024 8:41 AM PORCELAIN ENAMELER 04/26/2024 8:57 AM PORCELAIN ENAMELER us Maddie White MD LAB BLOOD ORDERABLES Maeve lopez Result [facility]) 1 [facility] Department [place] [address] * (ABNORMAL) CBC without differential (04/26/2024 8:41 AM PORCELAIN ENAMELER) WBC 6.4 3.8 - 9.9 K/cumm Hgb 13.8 11.9 - 15.5 g/dL [facility] ([place]) Hct 40.1 35.6 - 45.5 % [facility] ([place]) Plt 115(L) 150 - 400 K/cumm [facility] ([place]) MPV 10.1 9.1 - 12.3 fL [facility] ([place]) RBC 4.21 3.90 - 5.20 M/cumm [facility] ([place]) MCV 95.2 81.3 - 96.4 fL [facility] ([place]) MCH 32.8 27.1 - 33.3 pg [facility] ([place]) MCHC 34.4 32.3 - 35.7 g/dL [facility] ([place]) RDW CV 13.2 11.1 - 14.9 % [facility] ([place]) RDW SD 45.2 35.7 - 48.1 fL [facility] ([place]) NRBC abs 0.00 0.00 - 0.01 K/cumm [facility] ([place]) Blood 04/26/2024 8:41 AM PORCELAIN ENAMELER 04/26/2024 8:57 AM PORCELAIN ENAMELER Maddie White MD LAB BLOOD ORDERABLES Maeve l Result [facility] ([place]) 1 [facility] Department [place] [address] * Comprehensive metabolic panel (04/26/2024 8:41 AM PORCELAIN ENAMELER) Sodium 138 135 - 145 mmol/L Potassium, pl 3.3 3.3 - 4.9 mmol/L [facility] ([place]) Chloride 103 97 - 110 mmol/L [facility] ([place]) CO2 22 22 - 32 mmol/L [facility] ([place]) Anion gap 13 2 - 15 mmol/L [facility] ([place]) BUN 21 6 - 25 mg/dL [facility] ([place]) Creatinine 0.61 0.60 - 1.10 mg/dL [facility] ([place]) Glucose 126 70 - 199 mg/dL [facility] ([place]) Comment: Interpretive Data Fasting glucose [...] [facility] ([place]) Blood 04/26/2024 8:41 AM PORCELAIN ENAMELER 04/26/2024 8:57 AM PORCELAIN ENAMELER Maddie White MD LAB BLOOD ORDERABLES Maeve l Result [facility] ([place]) 1 [facility] Department [place] [address] * eGFR (04/25/2024 8:53 AM PORCELAIN ENAMELER) eGFR >90 >=60 mL/min/1. 73 m2 Comment: [...] last reviewed 2021. Blood 04/25/2024 8:53 AM PORCELAIN ENAMELER 04/25/2024 8:55 AM PORCELAIN ENAMELER us Chang Mckeon MD LAB BLOOD ORDERABLE S Final Result [facility] ([place]) 1 [facility] Department [place] [address] * (ABNORMAL) Differential, auto (04/25/2024 8:53 AM PORCELAIN ENAMELER) Neutrophil abs 6.3 1.5 - 6.5 K/cumm [...] revised on 2017. Blood 04/25/2024 8:53 AM PORCELAIN ENAMELER 04/25/2024 8:55 AM PORCELAIN ENAMELER us Chang Mckeon MD LAB BLOOD ORDERABLE S Final Result [facility] ([place]) 1 [facility] Department [place] [address] * (ABNORMAL) CBC with auto differential (04/25/2024 8:53 AM PORCELAIN ENAMELER) WBC 7.4 3.8 - 9.9 K/cumm Hgb [...] [facility] ([place]) Blood 04/25/2024 8:53 AM PORCELAIN ENAMELER 04/25/2024 8:55 AM PORCELAIN ENAMELER us Chang Mckeon MD LAB BLOOD ORDERABLE S Final Result Performing Organization Address [facility] Co de Phone Number AMIE [facility] ([place]) [address] [place] [address] * aPTT (04/25/2024 8:53 AM PORCELAIN ENAMELER) aPTT 29 28 - 38 sec [facility] ([place]) Comment: Interpretive Data Heparin therapeutic range: 66.0 - 100.0 seconds. Range based on correlation with therapeutic heparin activity range of 0.3 - 0.7 Units/mL. Current interpretive data was last revised on 2023. Blood 04/25/2024 8:53 AM PORCELAIN ENAMELER 04/25/2024 5:58 PM PORCELAIN ENAMELER us Maddie White MD LAB BLOOD ORDERABLES Maeve l Result Performing Organization Address [facility] de Phone Number [facility] ([place]) 1 [facility] [place] [address] * Protime-INR (04/25/2024 8:53 AM PORCELAIN ENAMELER) PT 11.5 9.7 - 13.0 sec [facility] ([place]) INR 1.06 0.90 - 1.20 [facility] ([place]) Comment: Interpretive data Oral anticoagulant therapeutic ranges: Venous thromboembolism prophylaxis or treatment: 2.0-3.0 CARDIOLOGY Standard range: 2.0-3.0 High-intensity range: 2.5-3.5 Refer to indication-specific guidelines for appropriate target ranges for prosthetic heart valve replacement. Current interpretive data was last revised on 2019. Blood 04/25/2024 8:53 AM PORCELAIN ENAMELER 04/25/2024 5:58 PM PORCELAIN ENAMELER us Maddie White MD LAB BLOOD ORDERABLES Maeve l Result [facility] ([place]) [address] [place] [address] * Magnesium (04/25/2024 8:53 AM PORCELAIN ENAMELER) [facility] Magnesium 1.4 1.4 - 2.5 mg/dL Blood 04/25/2024 8:53 AM PORCELAIN ENAMELER 04/25/2024 9:56 AM PORCELAIN ENAMELER Chang Mckeon MD LAB BLOOD ORDERABLE S Final Result Performing Organization Address [facility] Co de Phone Number [facility] ([place]) [address] [place] [address] * (ABNORMAL) Ethanol (04/25/2024 8:53 AM PORCELAIN ENAMELER) [facility] Ethanol 59(H) <=10 mg/dL Comment: Interpretive Data Legal limit of intoxication > or = 80 mg/dL Levels > or = 400 mg/dL are potentially TOXIC. Current interpretive data was last revised on 2018. Blood 04/25/2024 8:53 AM PORCELAIN ENAMELER 04/25/2024 8:55 AM PORCELAIN ENAMELER us Chang Mckeon MD LAB BLOOD ORDERABLE S Final Result Performing Organization Address [facility] Co de Phone Number [facility] ([place]) [address] [place] [address] * (ABNORMAL) Comprehensive metabolic panel (04/25/2024 8:53 AM PORCELAIN ENAMELER) [facility] Sodium 134(L) 135 - 145 mmol/L Potassium, pl 3.5 3.3 - 4.9 mmol/L [facility] ([place]) Chloride 99 97 - 110 mmol/L [facility] ([place]) CO2 21(L) 22 - 32 mmol/L [facility] ([place]) Anion gap 14 2 - 15 mmol/L [facility] ([place]) BUN 13 6 - 25 mg/dL [facility] ([place]) Creatinine 0.48(L) 0.60 - 1.10 mg/dL [...] Hemolyzed S pecimen Blood 04/25/2024 8:53 AM PORCELAIN ENAMELER 04/25/2024 8:55 AM PORCELAIN ENAMELER us Chang Mckeon MD LAB BLOOD ORDERABLE S Final Result [facility] ([place]) 1 [facility] Department [place] [address] * eGFR (04/25/2024 8:33 AM PORCELAIN ENAMELER) eGFR >90 >=60 mL/min/1. 73 m2 Comment: [...] last reviewed 2021. Blood 04/25/2024 8:33 AM PORCELAIN ENAMELER 04/25/2024 8:41 AM PORCELAIN ENAMELER Jesenia Mckeon MD LAB BLOOD ORDERABLES Final Re sult [facility] ([place]) 1 [facility] Department [place] [address] * (ABNORMAL) Drugs of Abuse Screen, Urine without Confirmation (04/25/2024 8:33 AM PORCELAIN ENAMELER) Amphetamine, ur Screen Positive, presumptive (A) CutOff [...] [facility] ([place]) Comment: Interpretive Data - Barbiturates: Samples containing greater than 200 ng/mL secobarbital or other cross-reacting barbiturate compounds are reported as positive. False positive and false negative results are possible. Confirmatory testing required for definitive results. Current Interpretive Data was last reviewed 2022. Benzodiazepines, ur Screen Positive, presumptive (A) CutOff 100ng/mL [facility] ([place]) Comment: Interpretive Data - Benzodiazepines: Samples [...] [facility] ([place]) Comment: Interpretive Data - Opiates: Samples containing greater than 300 ng/mL morphine or other cross-reacting compounds are reported as positive. False positive and false negative results are possible. Confirmatory testing required for definitive results. Current Interpretive Data was last reviewed 2022. Oxycodone, ur Not Detected CutOff 100ng/mL [facility] ([place]) Comment: Interpretive Data - Oxycodone: Samples containing greater than 100 ng/mL oxycodone or other cross-reacting compounds are reported as positive. False positive and false negative results are possible. Confirmatory testing required for definitive results. Current Interpretive Data was last reviewed 2022. Phencyclidine, ur Not Detected CutOff 25 ng/mL [facility] ([place]) Comment: Interpretive Data - Phencyclidine: Samples containing greater than 25 ng/mL phencyclidine or other cross-reacting compounds are reported as positive. False positive and false negative results are possible. Confirmatory testing required for definitive results. Current Interpretive Data was last reviewed 2022. Urine Creatinine 208 mg/dL [facility] ([place]) Comment: Interpretive Data Urine Creatinine: < 10 mg/dL is extremely dilute = or > 10 but < 20 mg/dL is dilute = or > 20 mg/dL is normal Current Interpretive Data was last revised on 2017. Urine 04/25/2024 8:33 AM PORCELAIN ENAMELER 04/25/2024 8:43 AM PORCELAIN ENAMELER Narrative [facility] ([place]) - 04/25/2024 9:03 AM PORCELAIN ENAMELER Drug of Abuse screening is performed by immunoassay for medical purposes only. This is not to be used for Pain Management purposes. us Jesenia Mckeon MD LAB URINE ORDERABLES Final Re sult [facility] ([place]) 1 [facility] Department [place] [address] * (ABNORMAL) CBC without differential (04/25/2024 8:33 AM PORCELAIN ENAMELER) WBC 7.3 3.8 - 9.9 K/cumm Hgb [...] NRBC abs 0.00 0.00 - 0.01 K/cumm [facility] Blood 04/25/2024 8:33 AM PORCELAIN ENAMELER 04/25/2024 8:41 AM PORCELAIN ENAMELER us Jesenia Mckeon MD LAB BLOOD ORDERABLES Final Re sult [facility] ([place]) 1 [facility] Department [place] [address] * (ABNORMAL) Comprehensive metabolic panel (04/25/2024 8:33 AM PORCELAIN ENAMELER) Sodium 135 135 - 145 mmol/L Potassium, [...] ([place]) Glucose 156 70 - 199 mg/dL [facility] ([place] Comment: Interpretive Data Fasting glucose [...] Hemolyzed S pecimen Blood 04/25/2024 8:33 AM PORCELAIN ENAMELER 04/25/2024 8:41 AM PORCELAIN ENAMELER us Jesenia Mckeon MD LAB BLOOD ORDERABLES Final Re sult [facility] ([place]) 1 [facility] [place] [address] from Last 3 Months Insurance [employer] [facility] Advance Directives For more information, please contact: [phone] * Full Code (Latest Code Status on File) Date Activated Date Inactivated Comments 04/25/2024 5:41 PM 05/07/2024 7:44 PM Care Teams Gauntlet Pairer Relationship Specialty Start Date End Date Bladimir Crowder MD [address] [place] [id number] PCP - General Family Medicine 04/25/24
[2024-05-17 06:21] LABS: SARS-CoV-2 RNA PCR Negative (Negative)
[2024-05-17 06:22] LABS: Influenza A QL RT-PCR Negative (Negative); Influenza B QL RT-PCR Negative (Negative)
[2024-05-17 06:23] LABS: RSV RNA, RT-PCR Negative (Negative)
--- NOTE | 2024-05-17 06:39 | ED.GENADULT ---
HPI - General Adult General Chief complaint: Upper Respiratory Infection Stated complaint: n/v/d Source: patient Mode of arrival: ambulatory Limitations: no limitations History of Present Illness HPI narrative: 48 years old white female came to the ED complaining of nausea, vomiting and diarrhea started over the last 6 hours. Patient report been visiting her at the residential and most of the pupil there positive for COVID and flu and other viruses. She denies respiratory symptoms or fever. Related Data Home Medications ?Medication ?Instructions ?Recorded ?Confirmed ?Last Taken ?Type gabapentin 300 mg capsule 400 mg PO TID 02/03/24 02/26/24 Unknown History Zoloft 5 mg DAILY 02/26/24 02/26/24 Unknown History nabumetone 500 mg TID 02/26/24 02/26/24 Unknown History Allergies Allergy/AdvReac Type Severity Reaction Status Date / Time No Known Allergies Allergy Verified 05/12/24 05:23 Review of Systems Review of Systems: All systems reviewed & are unremarkable except as noted in HPI and below PMFSH Past Medical History Medical History Hypertension ETOH abuse Social History Social History Smoking status: Never smoker Second hand tobacco smoke exposure: No Alcohol intake: current Drinks per week: 30 Substance use: current Substance use type: marijuana Other substance usage details: Last drink was at 6am this morning Do You Feel Safe in your Home?: No Lack of Transportation: YES Lack of Food: Sometimes True Current Housing: I Do Not Have Housing Concerned About Future Housing: YES Difficulty Paying Gas/Electric Bills: YES Difficulty Paying for Meds: YES Currently Unemployed: YES Education: High School Diploma/GED Difficulty w/ Childcare or Family Care: No Spiritual care concerns: No Exam Narrative: General appearance: Well-developed, well-nourished Skin: Normal color Head: Normocephalic, nontraumatic Eyes: Clear conjunctiva ENT: Oropharynx normal, ears normal, nose normal Neck: Supple, nontender Chest and respiratory: Airway patent, no respiratory distress, no accessory muscle use Heart: Regular rate/rhythm Abdomen: Soft, Mild diffuse tenderness, hyperactive bowel sounds, no organomegaly Musculoskeletal: Normal range of motion, nontender back Neurologic: Alert and oriented ?3, PHLEBOTOMY SPECIALIST is normal as tested, no gross motor deficit Course Vital Signs Vital signs: Vital Signs Oxygen Delivery Room Air 05/17/24 05:00 Temperature 36.6 C 05/17/24 05:01 Pulse Rate 78 05/17/24 05:01 Respiratory Rate 18 05/17/24 05:01 Blood Pressure 163/103 H 05/17/24 05:01 Pulse Oximetry 98 05/17/24 05:01 Oxygen Delivery Room Air 05/17/24 05:01 Medical Decision Making Vital Signs Vital Signs: Vital Signs Oxygen Delivery Room Air 05/17/24 05:00 Temperature 36.6 C 05/17/24 05:01 Pulse Rate 78 05/17/24 05:01 Respiratory Rate 18 05/17/24 05:01 Blood Pressure 163/103 H 05/17/24 05:01 Pulse Oximetry 98 05/17/24 05:01 Oxygen Delivery Room Air 05/17/24 05:01 Lab Data Labs: Lab Results 05/17/24 Range/Units 06:10 Influenza A (RT-PCR) Negative (Negative) Influenza B (RT-PCR) Negative (Negative) RSV (RT-PCR) Negative (Negative) SARS-CoV-2 RNA (RT-PCR) Negative (Negative) Critical Care Time Critical Care Time Critical Care Time: No Discharge Plan Discharge Clinical Impression: Gastroenteritis Patient Disposition: Home, Self-Care Condition: Stable Instructions: Gastroenteritis (ED), Full Liquid Diet (DC) Additional Instructions: Return if symptoms are worsening , call your family physician for appointment, take Tylenol as as needed for aches and pain, encourage fluid intake continue home medications. Patient Language: Burkinan Prescriptions: New ondansetron 4 mg tablet,disintegrating 4 mg PO Q4H 0 Days Qty: 10 0RF Rx Instructions: 1st dose 1-2 hr before radiation No Action gabapentin 300 mg capsule 400 mg PO TID ondansetron 4 mg tablet,disintegrating 4 mg PO Q8H PRN (Reason: nausea and vomiting) Qty: 30 0RF Zoloft 5 mg DAILY nabumetone 500 mg TID tramadol 50 mg tablet 50 mg PO Q6H PRN (Reason: pain) Qty: 20 0RF methylprednisolone [Medrol (Leo)] 4 mg tablets,dose pack See Rx Instructions PO .COMPLEX Qty: 21 0RF Rx Instructions: orally per package directions cyclobenzaprine 10 mg tablet 10 mg PO TID PRN (Reason: muscle spasm) Qty: 20 0RF Follow-up/Referrals: Dufner,Ruma Aden MD [Primary Care Provider] -
[2024-05-17 06:50] VITALS: BP 139/93; PULSE 78; RESP 18; TEMP 37; O2SAT 98
== END 2024-05-17 06:52 | disposition home or self-care (01) ==
PROVIDERS: Emergency Provider Emergency Medicine; PCP Family Medicine
DX: K52.9 Noninfective gastroenteritis and colitis, unspecified (principal); I10 Essential (primary) hypertension; Z20.822 Contact with and (suspected) exposure to COVID-19
CPT/HCPCS: 87637; 99283

== ENCOUNTER 2024-05-25 08:38 | Outpatient (CLI) | payer OTHER, SELFPAY ==
--- NOTE | ~2024-05-25 | CT_ITS ---
EXAMINATION: CT abdomen pelvis w con DATE: 05/25/2024 09:08 INDICATION: Abdominal pain. Nausea, vomiting, and diarrhea. TECHNIQUE: Computed tomography (CT) of the abdomen and pelvis was performed with 100 mL Omnipaque 350 intravenous contrast. Automated exposure control and iterative reconstruction technique were employe d. The dose-length product was 303.34 mGy-cm. COMPARISON: CT abdomen and pelvis 03/21/2024 FINDINGS: The visualized portions of the lung bases demonstrate mild atelectasis. A calcified left gerald ng nodule is consistent with old granulomatous disease. No pleural effusion. The heart size is normal . No pericardial effusion. The liver demonstrates surface nodularity, consistent with cirrhosis. Ther e is a periumbilical portacaval shunt. There are gallstones in the gallbladder, which is normal in si ze. The spleen, pancreas, adrenal glands, and left kidney are normal. There is cortical thinning of r ight kidney. There are no dilated loops of bowel. The appendix is normal. There are no pathologically enlarged lymph nodes. There is no free intraperitoneal fluid. There is moderate thoracic and lumbar spondylosis. IMPRESSION: 1. Cirrhosis of the liver with portal venous hypertension. Reviewed, dictated and finalized at location A. OSITION WEATHERBOARD INSTALLER
--- OUTSIDE RECORDS SUMMARY | 2024-05-25 08:44 | XMS_ITS | Encounter Summary ---
Author Organization [facility] Address [address] [place] [address] Care Team Providers Care Precision Inspector Name Role Phone Ruma Meade MD Primary Care Provider [phone] Reason for Referral * Sleep Lab (Routine) - 1st Call - Authorization Specialty Diagnoses / Procedures Referred By Aaron dejesus Referred To Contact Diagnoses Hypersomnia Procedures Diagnostic PSG (12487, 14344) [facility] [address] [place] [address] Phone: tel: [facility] Parent Location [address] [facility] [place] [address] Phone: tel: fax: Referral ID Status Reason Start Date Expiration Date Visits Requested Visits Authorized [id number] 1st Call - Authorization Sleep Studies 06/09/2025 1 1 [employer] Encounter Details Date Type Department Care Team (Late st Contact Info) Description 05/09/[address] [facility] [place] [address] Verna Raymundo MD [address] [place] [address] Social History Tobacco Use [...] st Contact Info) Description 05/26/2024 10:00 PM [facility] Hospital Encounter [facility] [address] [place] [address] Verna Raymundo MD [address] [place] [id number] Scheduled Orders Name Type Priority Associated Diagnoses Orde r Schedule Diagnostic PSG (01748, 42174) Sleep Center Routine Hypersomnia Expected: 05/09/2024, Expires: 05/09/2025 documented as of this encounter Visit Diagnoses Diagnosis Hypersomnia- Primary Hypersomnia, unspecified documented in this encounter Care Teams Precision Inspector Relationship Specialty Start Date End Date Ruma Meade MD [address] [place] [address] PCP - General FAMILY PRACTICE 03/18/24 documented as of this encounter
--- OUTSIDE RECORDS SUMMARY | 2024-05-25 08:44 | XMS_ITS ---
Author Organization [facility] Address [address] [place] [address] Care Team Providers Care Box Feeder Name Role Phone Ulicescamposkameron Chanel Unavailable [phone] REASON FOR VISIT ON CRU-detox physical Encounters Encounter Location Date Provider Diagnosis [place] [address] [facility] [place] [address] 01/19/2023 Chanel Baires Plan Of Treatment No Information Progress Notes * Latrice RITCHIEDOB:1975 (3 0 yo F)Acc No.[id number]:01/19/2023 UNLOCKED PROGRESS NOTE Patient: Latrice DOWLING Provider: Ted Baires, MSN, PLUSH FINISHER, AUDIT INTERN-C :1975 A ge:47 Y S ex:Female Date:01/19/2023 Phone: Address:[address] [facility] Subjective: * Chief Complaints: * 1 . ON CRU-detox physical. * Medical History: Objective: * Vitals: Assessment: Plan: * Treatment: * * Electronic signature of Idalia Baires APRN, [id number] on 05/25/2024 at 08:43 AM PROMOTIONS COORDINATOR Sign off status: Pending * Provider: Ted Baires, MSN, PLUSH FINISHER, AUDIT INTERN-C Date: 1 Generated for Frank meier/Chencho/Manoj on: 0 05/25/2024 08:43 AM PROMOTIONS COORDINATOR
--- OUTSIDE RECORDS SUMMARY | 2024-05-25 08:44 | XMS_ITS | Patient Health Record ---
Author Organization [facility] Address [address] [place] [address] Support Name Relationship Address Phone Latrice Valencia Guarantor Unknown Unavailable Reason For Referral No Information Plan Of Treatment No Information Insurance Providers Payer Name Payer Address Payer Phone Subscriber Number Group Number Insured Name Patient Relationship to Insured Coverage Start Date Coverage End Date MEDICAID [address] [place] [address] [id number] Latrice Valencia Self - patient is the insured 3
--- OUTSIDE RECORDS SUMMARY | 2024-05-25 08:44 | XMS_ITS ---
Author Organization [facility] Address [address] [place] [address] Care Team Providers Care Leave Coordinator Name Role Phone Mariella Zee Kaye [phone] REASON FOR VISIT CRU Psych Eval Encounters Encounter Location Date Provider Diagnosis [place] [address] [place] [address] 01/18/2023 Zee Wolff Plan Of Treatment No Information Progress Notes * Latrice RITCHIEDOB:1975 (3 0 yo F)Acc No.[id number]:01/18/2023 UNLOCKED PROGRESS NOTE Patient: Latrice DOWLING Provider: Marley Wolff DNP, SANIA-ROSA M, HANDICRAFTS TEACHER :1975 A ge:47 Y S ex:Female Date:01/18/2023 Phone: Address[address] [facility] Subjective: * Chief Complaints: * 1 . CRU Psych Eval. * Medical History: Objective: * Vitals: Assessment: Plan: * Treatment: * * Electronic signature of Eileen Wolff on 05/25/2024 at 08:44 AM CUBE CUTTER Sign off status: Pending * Provider: Marley Wolff DNP, SANIA-BC, HANDICRAFTS TEACHER Date: 1 Generated for Printing/Faxing/eTransmitting on: 0 05/25/2024 08:44 AM CUBE CUTTER
--- OUTSIDE RECORDS SUMMARY | 2024-05-25 08:44 | XMS_ITS | Clinical Summary ---
Author Organization [facility] Address [address] [place] [address] Care Team Providers Care Erp Programmer Name Role Phone Bladimir Crowder MD Primary Care Provider Allergies No known active allergies Medications gabapentin (NEURONTIN) 400 mg capsule Take 1 capsule (400 mg total) by mouth 3 (three) times a day 04/12/19 25 Active meloxicam (MOBIC) 15 mg tablet Take 1 tablet (15 mg total) by mouth daily Active prazosin (MINIPRESS) 2 mg capsule Take 1 capsule (2 mg total) by mouth nightly 30 capsule 05/07/19 025 Active sertraline (ZOLOFT) 100 mg tablet Take 2 tablets (200 mg total) by mouth daily 60 tablet 05/08/19 25 025 Active traZODone (DESYREL) 300 mg tablet Take 1 tablet (300 mg total) by mouth nightly 30 tablet 05/07/19 25 025 Active mupirocin (BACTROBAN) 2 % ointment Apply topically 2 (two) times a day 22 g 05/07/19 25 025 Active QUEtiapine (SEROquel) 25 mg tablet Take 1 tablet (25 mg total) by mouth 3 (three) times a day 90 tablet 05/07/[address] (PROTONIX) 40 mg EC tabletIndication s:Treatment of Non-Bleeding Gastric Disorder Take 1 tablet (40 mg total) by mouth daily 30 tablet 05/08/19 25 025 Active pancrelipase (CREON) 6,000 units of lipase capsuleIndicatio ns:exocrine pancreatic insufficiency Take 1 capsule (6,000 units of lipase total) by mouth 3 (three) times a day 100 capsule 05/08/19 25 025 Active prazosin (MINIPRESS) 1 mg capsule Take 3 capsules (3 mg total) by mouth nightly 04/12/19 25 025 Discontinued(S top Taking at Discharge) traZODone (DESYREL) 100 mg tablet Take 1.5 tablets (150 mg total) by mouth nightly 04/12/19 25 025 Discontinued(S top Taking at Discharge) Ativan 0.5 mg tablet Take 1 tablet (0.5 mg total) by mouth every 6 (six) hours as needed for anxiety 04/12/19 025 Discontinued(S top Taking at Discharge) methylPREDNISolo ne (MEDROL DOSEPACK) 4 mg Dosepack Take 1 tablet (4 mg total) by mouth daily On day 3 of taper. Remaining 04/26/24 4mg x3 doses, 04/27/24 4 mg x2 doses. 04/28/24 4mg x1 dose 04/21/19 025 Discontinued(S top Taking at Discharge) ondansetron (ZOFRAN) 4 mg tablet Take 1 tablet (4 mg total) by mouth every 8 (eight) hours as needed for nausea or vomiting 025 Discontinued(S top Taking at Discharge) sertraline 150 mg capsule Take 150 mg by mouth daily 04/12/19 025 Discontinued(S top Taking at Discharge) pancrelipase (CREON) 3,000 units of lipase capsuleIndicatio ns:exocrine pancreatic insufficiency Take 1 capsule by mouth 3 (three) times a day 025 Discontinued(S top Taking at Discharge) pancrelipase (CREON) 6,000 units of lipase capsuleIndicatio ns:exocrine pancreatic insufficiency Take 1 capsule (6,000 units of lipase total) by mouth 3 (three) times a day 90 capsule 05/07/19 025 Discontinued Active Problems Problem Noted Date Diagnosed Date Unspecified mood disorder 05/02/2024 Alcohol withdrawal syndrome without complication 04/25/2024 Encounters Date Type Department Care Team Description 05/17/2024 [facility] Warm Hand Off Program [address] [place], [place] [phone] Jana Hilario 05/08/2024 Telephone [facility] [id number] [phone] Shara Yates DO 05/07/2024 Documentation [facility] Warm Hand Off Program [address] [place] [phone] Latrice Dumont 05/05/2024 Documentation [facility] Warm Hand Off Program [address] [place] [phone] Hilario, Jana E. 05/03/2024 Documentation [facility] Warm Hand Off Program [address] [place] [phone] Hilario, Jana E. 05/02/2024 Documentation [facility] Warm Hand Off Program [address] [place] [phone] Latrice Dumont 05/01/2024 Documentation [facility] Warm Hand Off Program [address] [place], [place] [phone] Hilario, Jana E. 04/30/2024 Documentation [facility] Warm Hand Off Program [address] [place], [place] [phone] Latrice Dumont 04/29/2024 Documentation [facility] Warm Hand Off Program [address] [place], [place] [phone] Latrice Dumont 04/27/2024 [facility] Enrollment [facility] Warm Hand Off Program [address] [place], [place] [phone] Hilario, Jana E. 04/25/2024 10:50 AM HEEL LIFT GOUGER - 05/07/2024 3:39 PM HEEL LIFT GOUGER Hospital Encounter [facility] Medical Care [address] [place] [phone] Maddie White MD Sargsyan, Narine, MD Sinha, Chandni, MD Abegunde, Veronica O., MD Nations, Matthew Austin, Alcohol withdrawal syndrome without complication (HCC) (Primary Dx); Unspecified mood disorder (HCC) Discharge Disposition: Discharge to home or self care 04/25/2024 8:30 AM HEEL LIFT GOUGER [address] [phone] 04/25/2024 Documentation [facility] Warm Hand Off Program [address] [place], [place] [phone] Jana Hilario 04/25/2024 Documentation [facility] Warm Hand Off Program [address] [place], [place] [phone] Jana Hilario 04/23/2024 Documentation [facility] Warm Hand Off Program [address] [place], [place] [phone] Latrice Dumont from Last 3 Months Social [...] Comments Blood Pressure 118/80 05/07/2024 10:52 AM HEEL LIFT GOUGER Pulse 74 05/07/2024 10:52 AM HEEL LIFT GOUGER Temperature 36.6 C (97.9 F) 05/07/2024 10:52 AM HEEL LIFT GOUGER Respiratory Rate 20 05/07/2024 10:52 AM HEEL LIFT GOUGER Oxygen Saturation 91% 05/07/2024 10:52 AM HEEL LIFT GOUGER Inhaled Oxygen Concentration - - Weight 78.6 kg (173 lb 4.5 oz) 05/02/2024 1:12 A M HEEL LIFT GOUGER Height 165.1 cm (5' 5 ) 04/29/2024 3:24 PM HEEL LIFT GOUGER Body Mass Index 28.84 04/29/2024 3:24 PM HEEL LIFT GOUGER Plan of Treatment Health Maintenance Due Date [...] Diagnosis Comments EGFR Routine 05/05/2024 12:12 PM HEEL LIFT GOUGER CBC WITHOUT DIFFERENTIAL Routine 05/05/2024 12:12 PM HEEL LIFT GOUGER COMPREHENSIVE METABOLIC PANEL Routine 05/05/2024 12:12 PM HEEL LIFT GOUGER TRANSTHORACIC ECHO (TTE) COMPLETE W DOPPLER/CF WO CONTRAST Routine 05/04/2024 7:30 AM HEEL LIFT GOUGER US UPPER EXTREMITY RIGHT LIMITED IP Routine 05/03/2024 2:05 PM HEEL LIFT GOUGER BLOOD CULTURE Routine 05/03/2024 1:35 PM HEEL LIFT GOUGER BLOOD CULTURE Routine 05/03/2024 11:25 AM HEEL LIFT GOUGER TROPONIN T HIGH-SENSITIVITY 6-HOUR Timed 05/02/2024 11:01 AM HEEL LIFT GOUGER TROPONIN T HIGH-SENSITIVITY 2-HOUR Timed 05/02/2024 6:37 AM HEEL LIFT GOUGER TROPONIN T HIGH-SENSITIVITY SERIES (BASELINE, 2HR, 4HR, 6HR) Routine 05/02/2024 4:17 AM HEEL LIFT GOUGER ECG 12-LEAD Routine 05/02/2024 2:17 AM HEEL LIFT GOUGER US ABDOMEN LIMITED IP Routine 05/01/2024 3: 50 PM HEEL LIFT GOUGER APTT STAT 05/01/2024 2:50 PM HEEL LIFT GOUGER PROTIME-INR STAT 05/01/2024 2:50 PM HEEL LIFT GOUGER URINALYSIS, MICROSCOPIC ONLY Routine 05/01/2024 10:44 AM HEEL LIFT GOUGER URINALYSIS AND REFLEX TO MICROSCOPIC AND CULTURE Routine 05/01/2024 10:44 AM HEEL LIFT GOUGER RESPIRATORY PATHOGEN PANEL Routine 05/01/2024 10:04 AM HEEL LIFT GOUGER XR CHEST 1 VIEW IP Routine 05/01/2024 9:53 AM HEEL LIFT GOUGER EGFR STAT 05/01/2024 8:52 AM HEEL LIFT GOUGER LACTATE STAT 05/01/2024 8:52 AM HEEL LIFT GOUGER COMPREHENSIVE METABOLIC PANEL STAT 05/01/2024 8:52 AM HEEL LIFT GOUGER CBC WITHOUT DIFFERENTIAL STAT 05/01/2024 8:52 AM HEEL LIFT GOUGER BLOOD CULTURE Routine 04/30/2024 8:47 PM HEEL LIFT GOUGER BLOOD CULTURE Routine 04/30/2024 8:47 PM HEEL LIFT GOUGER MRI LUMBAR SPINE WO CONTRAST IP Routine 04/30/2024 2:[address] ABDOMEN PELVIS W CONTRAST IP Routine 04/29/2024 9:22 AM HEEL LIFT GOUGER EGFR Routine 04/29/2024 4:53 AM HEEL LIFT GOUGER DIFFERENTIAL AUTO Routine 04/29/2024 4:5 3 AM HEEL LIFT GOUGER PHOSPHORUS Routine 04/29/2024 4:53 AM HEEL LIFT GOUGER MAGNESIUM Routine 04/29/2024 4:53 AM HEEL LIFT GOUGER HEPATIC FUNCTION PANEL Routine 04/29/2024 4:53 AM HEEL LIFT GOUGER CBC WITH AUTO DIFFERENTIAL Routine 04/29/2024 4:53 AM HEEL LIFT GOUGER BASIC METABOLIC PANEL Routine 04/29/2024 4:53 AM HEEL LIFT GOUGER HEPATIC FUNCTION PANEL Add-On 04/28/2024 1:16 PM HEEL LIFT GOUGER LIPASE STAT 04/28/2024 1:16 PM HEEL LIFT GOUGER EGFR Routine 04/26/2024 8:41 AM HEEL LIFT GOUGER COMPREHENSIVE METABOLIC PANEL Routine 04/26/2024 8:41 AM HEEL LIFT GOUGER CBC WITHOUT DIFFERENTIAL Routine 04/26/2024 8:41 AM HEEL LIFT GOUGER APTT STAT 04/25/2024 8:53 AM HEEL LIFT GOUGER PROTIME-INR STAT 04/25/2024 8:53 AM HEEL LIFT GOUGER MAGNESIUM Add-On 04/25/2024 8:53 AM HEEL LIFT GOUGER EGFR STAT 04/25/2024 8:53 AM HEEL LIFT GOUGER DIFFERENTIAL AUTO STAT 04/25/2024 8:5 3 AM HEEL LIFT GOUGER ETHANOL STAT 04/25/2024 8:53 AM HEEL LIFT GOUGER COMPREHENSIVE METABOLIC PANEL STAT 04/25/2024 8:53 AM HEEL LIFT GOUGER CBC WITH AUTO DIFFERENTIAL STAT 04/25/2024 8:53 AM HEEL LIFT GOUGER EGFR STAT 04/25/2024 8:33 AM HEEL LIFT GOUGER DRUGS OF ABUSE SCREEN, URINE WITHOUT CONFIRMATION Routine 04/25/2024 8:33 AM HEEL LIFT GOUGER CBC WITHOUT DIFFERENTIAL STAT 04/25/2024 8:33 AM HEEL LIFT GOUGER COMPREHENSIVE METABOLIC PANEL STAT 04/25/2024 8:33 AM HEEL LIFT GOUGER from Last 3 Months Results * eGFR (05/05/2024 12:12 PM HEEL LIFT GOUGER) Pathologist [facility] eGFR >90 >=60 mL/min/1. 73 m2 Comment: [...] reviewed 2021. Blood 05/05/2024 12:1 2 PM HEEL LIFT GOUGER 05/05/2024 12:26 PM HEEL LIFT GOUGER Shara Yates DO LAB BLOOD ORDERABLES F inal Result AMIE [facility] (ALLI) 1 [facility] Department [place] [address] * (ABNORMAL) CBC without differential (05/05/2024 12:12 PM HEEL LIFT GOUGER) Pathologist [facility] WBC 4.3 3.8 - 9.9 K/cumm Hgb 12.4 11.9 - 15.5 g/dL [facility] Hct 36.7 35.6 - 45.5 % [facility] ([place]) Plt 117(L) 150 - 400 K/cumm [facility] ([place]) MPV 10.2 9.1 - 12.3 fL [facility] ([place]) RBC 3.87(L) 3.90 - 5.20 M/cumm [facility] ([place]) MCV 94.8 81.3 - 96.4 fL [facility] ([place]) MCH 32.0 27.1 - 33.3 pg [facility] ([place]) MCHC 33.8 32.3 - 35.7 g/dL [facility] ([place]) RDW CV 13.3 11.1 - 14.9 % [facility] ([place]) RDW SD 46.5 35.7 - 48.1 fL [facility] ([place]) NRBC abs 0.00 0.00 - 0.01 K/cumm [facility] ([place]) Blood 05/05/2024 12:1 2 PM HEEL LIFT GOUGER 05/05/2024 12:26 PM HEEL LIFT GOUGER us Shara Yates DO LAB BLOOD ORDERABLES F inal Result [facility] ([place]) 1 [facility] Department [place] [address] * (ABNORMAL) Comprehensive metabolic panel (05/05/2024 12:12 PM HEEL LIFT GOUGER) Sodium 138 135 - 145 mmol/L Potassium, pl 4.1 3.3 - 4.9 mmol/L [facility] Chloride 104 97 - 110 mmol/L [facility] ([place]) CO2 24 22 - 32 mmol/L [facility] ([place]) Anion gap 11 2 - 15 mmol/L [facility] ([facility] BUN 12 6 - 25 mg/dL [facility] ([place]) Creatinine 0.45(L) 0.60 - 1.10 mg/dL [facility] ([place]) Glucose 102 70 - 199 mg/dL [facility] ([facility] Comment: Interpretive Data [...] [facility] ([place]I) Blood 05/05/2024 12:1 2 PM HEEL LIFT GOUGER 05/05/2024 12:26 PM HEEL LIFT GOUGER Shara Yates DO LAB BLOOD ORDERABLES F inal Result [facility] ([place] 1 [facility] Department [place] [address] * TRANSTHORACIC ECHO (TTE) COMPLETE W DOPPLER/CF WO CONTRAST (05/04/2024 7:30 AM HEEL LIFT GOUGER) LV EF 60-65 % CONS SCIMAGE Anatomical Region Laterality Modality Ultrasound 05/04/2024 7:13 AM HEEL LIFT GOUGER Narrative 05/04/2024 4:47 PM HEEL LIFT GOUGER [address] [address] Echocardiogram Report Patient Name: LATRICE VALENCIA : 1975 Study Date: 05/04/2024 7:13:46 AM Gender: F Tech: Location: [id number] Ref Provider: SHARA YATES Height(Cm): 165 BSA: [...] By: Kwaku Blanco MD 05/04/2024 4:46:44 PM HEEL LIFT GOUGER Procedure Note Kwaku Blanco MD - 05/04/2024 [place] [address] Echocardiogram Report Patient Name: LATRICE VALENCIA : 1975 Study Date: 05/04/2024 7:13:46 AM Gender: F Tech: Location: [place] [address] Ref Provider: SHARA YATES Height(Cm): 165 BSA: [...] By: Kwaku Blanco MD 05/04/2024 4:46:44 PM HEEL LIFT GOUGER Shara Serrano [facility] DO CV ECHO PROCEDURES Fin al Result * US Upper Extremity Right Limited (05/03/2024 2:05 PM HEEL LIFT GOUGER) Anatomical Region Laterality Modality Upper Extremities Right Ultrasound 05/03/2024 4:48 PM HEEL LIFT GOUGER Narrative 05/03/2024 4:51 PM HEEL LIFT GOUGER EXAM DESCRIPTION: US UPPER EXTREMITY RIGHT LIMITED REASON FOR STUDY: Patient with cellulitis at site of right forearm prior IV site. Firmness at this area, wanting to rule out an abscess. TECHNIQUE: A Dynamic assessment was performed of the soft tissues in the right elbow region by the manager java, with selected grayscale and color Doppler images acquired and recorded in PACS. COMPARISON: None FINDINGS: Thrombus is seen within a superficial vein within the region of concern, with prominent peripheral vascularity. IMPRESSION: Superficial thrombophlebitis within the region of concern. THIS IS AN ELECTRONICALLY VERIFIED FINAL REPORT 05/03/2024 4:51 PM - Electronically signed by Boyd Cook M.D. KR: CHANG Report ID: [id number] Reading Location: [id number] Procedure Note Boyd Cook MD - 05/03/2024 EXAM DESCRIPTION: US UPPER EXTREMITY RIGHT LIMITED REASON FOR STUDY: Patient with cellulitis at site of right forearm priorIV site. Firmness at this area, wanting to rule out an abscess. TECHNIQUE: A Dynamic assessment was performed of the soft tissues in theright elbow region by the manager java, with selected grayscale and color Doppler images acquired and recorded in PACS. COMPARISON: None FINDINGS: Thrombus is seen within a superficial vein within the region of concern,with prominent peripheral vascularity. IMPRESSION: Superficial thrombophlebitis within the region of concern. THIS IS AN ELECTRONICALLY VERIFIED FINAL REPORT 05/03/2024 4:51 PM - Electronically signed by Boyd Cook M.D. KR: CHANG Report ID: [id number] Reading Location: [id number] Shara Serrano [facility] DO IMG US PROCEDURES Maeve l Result * Blood culture Blood (05/03/2024 1:35 PM HEEL LIFT GOUGER) Report Final Report: No growth Comment:Testing performed by : [facility], [address] [place]., [address] Blood 05/03/2024 1:35 PM HEEL LIFT GOUGER 05/03/2024 4:30 PM HEEL LIFT GOUGER Kris RENAE (ALLI) - 05/08/2024 7:00 AM HEEL LIFT GOUGER From a different site than #1. Collection->Peripheral [...] characteristics have been verified by the [facility] Microbiology Laboratory. For questions about this culture, contact the Microbiology Laboratory at [phone]. Interpretive data was last revised on 24. Shara Yates DO LAB MICROBIOLOGY - GEN ERAL ORDERABLES Final Result AMIE OC ADRIEN) 1 [facility] Department [place] [address] * Blood culture Blood (05/03/2024 11:25 AM HEEL LIFT GOUGER) Report Final Report: No growth Comment:Testing performed by : [facility], [address] [place]., [address] Blood 05/03/2024 11:2 5 AM HEEL LIFT GOUGER 05/03/2024 1:53 PM HEEL LIFT GOUGER Narrative AMIE RE[facility] ([place]I) - 05/07/2024 4:00 PM HEEL LIFT GOUGER Collection->Peripheral 1. Blood cultures are incubated for [...] characteristics have been verified by the [facility] Microbiology Laboratory. For questions about this culture, contact the Microbiology Laboratory at [phone]. Interpretive data was last revised on 24. Shara Serrano Suzy LAB MICROBIOLOGY - GEN ERAL ORDERABLES Final Result AMIE [facility] (ALLI) 1 [facility] [place] [address] * Troponin T high-sensitivity 6-hour (05/02/2024 11:01 AM HEEL LIFT GOUGER) Trop T hs <6 <=14 ng/L Comment: Interpretive Data For further hscTnT resources including the diagnostic algorithm and an aid in interpretation, copy and paste this link: https://nrl.[employer]org/show/hsTrop Current Interpretive Data last revised 2020. Trop T hs delta 0 ng/L [facility] ([place]) Trop T hs interp Insignificant [facility] ([place]) Blood 05/02/2024 11:0 1 AM HEEL LIFT GOUGER 05/02/2024 11:11 AM HEEL LIFT GOUGER us Guille Wall MD LAB BLOOD ORDERABLES Final Resu lt Performing Organization Address [facility]/ZIP Co de Phone Number AMIE RENAE ([place]) 1 [facility] [place] [address] * Troponin T high-sensitivity 2-hour (05/02/2024 6:37 AM HEEL LIFT GOUGER) Trop T hs <6 <=14 ng/L Comment: Interpretive Data For further hscTnT resources including the diagnostic algorithm and an aid in interpretation, copy and paste this link: https://nrl.[employer]org/show/hsTrop Current Interpretive Data last revised 2020. Trop T hs delta 0 ng/L [facility] ([place]) Trop T hs interp Insignificant [facility] ([place]) Blood 05/02/2024 6:37 AM HEEL LIFT GOUGER 05/02/2024 7:06 AM HEEL LIFT GOUGER Guille Wall MD LAB BLOOD ORDERABLES Final Resu lt Performing Organization Address [facility] de Phone Number AMIE RE[facility] ([place]) 1 [facility] [place] [address] * Troponin T high-sensitivity series (baseline, 2hr, 4hr, 6hr) (05/02/2024 4:17 AM HEEL LIFT GOUGER) Trop T hs <6 <=14 ng/L Comment: Interpretive Data For further hscTnT resources including the diagnostic algorithm and an aid in interpretation, copy and paste this link: https://nrl.[employer].org/show/hsTrop Current Interpretive Data last revised 2020. Blood 05/02/2024 4:17 AM HEEL LIFT GOUGER 05/02/2024 4:40 AM HEEL LIFT GOUGER Guille Wall MD LAB BLOOD ORDERABLES Final Resu lt Performing Organization Address [facility] de Phone Number AMIE RENAE ([place]) 1 [facility] [place] [address] * ECG 12 lead (05/02/2024 2:17 AM HEEL LIFT GOUGER) 05/02/2024 2:17 AM HEEL LIFT GOUGER Narrative [facility] - 05/02/2024 7:39 AM HEEL LIFT GOUGER Vent Rate: 73 bpm RR Interval: 816 msec [place] Interval: 180 msec QRS Duration: 84 msec QT Interval: 397 msec QTC Interval: 423 msec P-R-T [place]: 40 - -21 - 31 degrees IMPRESSION: SINUS RHYTHM WITH SINUS ARRHYTHMIA BORDERLINE LEFT AXIS DEVIATION [QRS AXIS < -20] BORDERLINE ECG Electronically Signed By: Kwaku Blanco MD Guille Wall MD ECG ORDERABLES Final Result Performing Organization Address [facility] de Phone Number [facility] [employer] [facility] * US Abdomen Limited (05/01/2024 3:50 PM HEEL LIFT GOUGER) Anatomical Region Laterality Modality Abdomen N/A Ultrasound 05/01/2024 5:06 PM HEEL LIFT GOUGER Narrative 05/01/2024 5:08 PM HEEL LIFT GOUGER EXAM DESCRIPTION: US ABDOMEN LIMITED REASON FOR [...] Boyd Caldwell M.D. KT: KARINA Report ID: [id number] Reading Location: [id number] Procedure Note Boyd Caldwell MD - 05/01/2024 [...] Boyd Caldwell M.D. KT: KARINA Report ID: [id number] Reading Location: [id number] Shara Serrano [facility] DO IMG US PROCEDURES Maeve l Result * aPTT (05/01/2024 2:50 PM HEEL LIFT GOUGER) aPTT 34 28 - 38 sec [facility] ([place]I) Comment: Interpretive Data Heparin therapeutic range: 66.0 - 100.0 seconds. Range based on correlation with therapeutic heparin activity range of 0.3 - 0.7 Units/mL. Current interpretive data was last revised on 2023. Blood 05/01/2024 2:50 PM HEEL LIFT GOUGER 05/01/2024 3:05 PM HEEL LIFT GOUGER [facility] LAB BLOOD ORDERABLES F inal Result Performing Organization Address [facility] de Phone Number AMIE [facility] ([place]) 1 [place] [address] * (ABNORMAL) Protime-INR (05/01/2024 2:50 PM HEEL LIFT GOUGER) PT 14.9(H) 9.7 - 13.0 sec [facility] ([place]) INR 1.37(H) 0.90 - 1.20 [facility] ([place]) Comment: Interpretive data Oral anticoagulant therapeutic ranges: Venous thromboembolism prophylaxis or treatment: 2.0-3.0 CARDIOLOGY Standard range: 2.0-3.0 High-intensity range: 2.5-3.5 Refer to indication-specific guidelines for appropriate target ranges for prosthetic heart valve replacement. Current interpretive data was last revised on 2019. Blood 05/01/2024 2:50 PM HEEL LIFT GOUGER 05/01/2024 3:05 PM HEEL LIFT GOUGER Shara Serrano [facility] LAB BLOOD ORDERABLES F inal Result Performing Organization Address [facility] de Phone Number [facility] ([facility] 1 [place] [address] * (ABNORMAL) Urinalysis reflex to microscopic and culture Urine (05/01/2024 10:44 AM HEEL LIFT GOUGER) Color, ur Yellow Yellow Clarity, ur Clear Clear AMIE Patel ([place]) Specific gravity, ur 1.017 1.003 - 1.030 [facility] ([place]) pH, urine 6.0 [facility] ([place]) Comment: Interpretive Data U rine pH is affected by diet, medications, systemic acid-base disturbances, and renal tubular function. pH may affect urinary stone formation. For example, urine pH below 6.0 may help reduce the tendency for calcium phosphate stones and pH greater than 6.0 may reduce the tendency for uric acid stone formation. Source: [facility] Current Interpretive Data was last revised on [...] [facility] (ALLI) Urine 05/01/2024 10:4 4 AM HEEL LIFT GOUGER 05/01/2024 10:50 AM HEEL LIFT GOUGER Shara Yates DO LAB MICROBIOLOGY - GEN ERAL ORDERABLES Final Result Performing Organization Address [facility] de Phone Number AMIE RE[facility] (ALLI) 1 [facility] [place] [place] [address] * (ABNORMAL) Urinalysis, microscopic only (05/01/2024 10:44 AM HEEL LIFT GOUGER) WBC, ur 0-5 0 - 5 /HPF RBC, ur 0-2 0 - 2 /HPF [facility] ([place]) Epithelial cells, squamous, ur 11-20(A) 0 - 5 /HPF [facility] ([place]) Bacteria, ur Trace(A) [facility] ([place]) Mucous, ur Present(A) [facility] (ALLI) Culture Reflex Comment Reflex conditions for urine culture (WBC >10) not met. [facility] ([place]) Urine 05/01/2024 10:4 4 AM HEEL LIFT GOUGER 05/01/2024 10:50 AM HEEL LIFT GOUGER us Shara Yates DO LAB URINE ORDERABLES F inal Result Performing Organization Address [facility] Co de Phone Number AMIE [facility] (ALLI) [address] Department [place] [address] * Respiratory pathogen panel Nasopharyngeal (05/01/2024 10:04 AM HEEL LIFT GOUGER) Pathologist [facility] Influenza A RNA Not Detected Not Detected Comment:Testing performed by : [facility], [address] [place] [address], [id number] Influenza B RNA Not Detected Not Detected [facility] ([place]) Comment:Testing performed by : [facility], [address] [place] [address], [id number] RSV RNA Not Detected Not Detected [facility] ([place]) Comment:Testing performed by : [facility], [address] [place] [address], [id number] COVID-19 RNA Not Detected Not Detected [facility] ([place]) Comment:Testing performed by : [facility], [address] [place] [address], [id number] Coronavirus 229E RNA Not Detected Not Detected [facility] ([place]) Comment:Testing performed by : [facility], [address] [place] [address], [id number] Coronavirus HKU1 RNA Not Detected Not Detected [facility] ([place]) Comment:Testing performed by : [facility], [address] [place] [address], [id number] Coronavirus NL63 RNA Not Detected Not Detected [facility] ([place]) Comment:Testing performed by : [facility], [address] [place] [address], [id number] Coronavirus OC43 RNA Not Detected Not Detected [facility] ([place]) Comment:Testing performed by : [facility], [address] [place] [address], [id number] Adenovirus DNA Not Detected Not Detected [facility] ([place]) Comment:Testing performed by : [facility], [address] [place] [address], [id number] Metapneumovirus RNA Not Detected Not Detected [facility] (ALLI) Comment:Testing performed by : [facility], [address] [place] [address], [address] Rhinovirus/Enterov irus RNA Not Detected Not Detected [facility] (ALLI) Comment:Testing performed by : [address], [address] Parainfluenza 1 RNA Not Detected Not Detected [facility] (ALLI) Comment:Testing performed by : [facility], [address] [place] [address]., [address] Parainfluenza 2 RNA Not Detected Not Detected [facility] (ALLI) Comment:Testing performed by : [facility], [address] [place] [address]., [address] Parainfluenza 3 RNA Not Detected Not Detected [facility] (ALLI) Comment:Testing performed by : [facility], [address] [place] [address]., [address] Parainfluenza 4 RNA Not Detected Not Detected [facility] (ALLI) Comment:Testing performed by : [facility], [address] [place] [address]., [address] B. pertussis DNA Not Detected Not Detected [facility] (ALLI) Comment:Testing performed by : [facility], [address] [place] [address]., [address] B. parapertussis DNA Not Detected Not Detected [facility] (ALLI) Comment:Testing performed by : [facility], [address] [place] [address]., [address] C. pneumoniae DNA Not Detected Not Detected [facility] (ALLI) Comment:Testing performed by : [facility], [address] [place] [address]., [address] M. pneumoniae DNA Not Detected Not Detected [facility] (ALLI) Comment: Interpretive Data The IntegraGen FilmArray Respiratory Panel (RP2.1) assay is a [...] assay has FDA clearance for testing of DUMP MOTOR OPERATOR swabs. The performance characteristics of this assay have been determined by [facility]. Current interpretive data was last revised on 2020. Testing performed by: [facility], [address] [place] [address]., [address] Nasopharyngeal 05/01/2024 10 :04 AM HEEL LIFT GOUGER 05/01/2024 11:23 AM HEEL LIFT GOUGER Narrative AMIE RENAE ([place]) - 05/01/2024 12:24 PM HEEL LIFT GOUGER Is the Patient experiencing symptoms consistent with COVID?->Yes Surveillance testing for transplant patient?->No Shara Serrano [facility] DO LAB MICROBIOLOGY - GEN ERAL ORDERABLES Final Result AMIE RENAE ([place]) 1 [facility] Department [place] [address] CH * XR CHEST 1 VIEW PORTABLE (05/01/2024 9:53 AM HEEL LIFT GOUGER) Anatomical Region Laterality Modality Body, Chest N/A Computed Radiogr aphy 05/01/2024 12:2 9 PM HEEL LIFT GOUGER Narrative 05/01/2024 12:30 PM HEEL LIFT GOUGER EXAM DESCRIPTION: XR CHEST 1 VIEW REASON [...] Dong Thorne M.D. RB: RB Report ID: [id number] Reading Location: [place] [address] Procedure Note Dong Thorne MD - 05/01/2024 [...] Dong Thorne M.D. RB: RB Report ID: [id number] Reading Location: [place] [address] Shara Serrano [facility] DO IMG XR PROCEDURES Maeve l Result * Lactate (05/01/2024 8:52 AM HEEL LIFT GOUGER) Lactate 1.3 0.7 - 2.0 mmol/L Blood 05/01/2024 8:52 AM HEEL LIFT GOUGER 05/01/2024 9:01 AM HEEL LIFT GOUGER Shara Yates DO LAB BLOOD ORDERABLES F inal Result Performing Organization Address [facility] Co de Phone Number AMIE RENAE (ALLI) 1 [facility] [employer] [place] [address] * eGFR (05/01/2024 8:52 AM HEEL LIFT GOUGER) eGFR >90 >=60 mL/min/1. 73 m2 Comment: [...] last reviewed 2021. Blood 05/01/2024 8:52 AM HEEL LIFT GOUGER 05/01/2024 9:40 AM HEEL LIFT GOUGER Shara Serrano Suzy DO LAB BLOOD ORDERABLES F inal Result Performing Organization Address City/[facility]/ZIP Co de Phone Number AMIE RENAE (ALLI) 1 [facility] [place] [address] * (ABNORMAL) CBC without differential (05/01/2024 8:52 AM HEEL LIFT GOUGER) WBC 6.4 3.8 - 9.9 K/cumm Hgb [...] [facility] ([facility]I) Blood 05/01/2024 8:52 AM HEEL LIFT GOUGER 05/01/2024 9:40 AM HEEL LIFT GOUGER Shara Serrano [facility] DO LAB BLOOD ORDERABLES F inal Result [facility] 1 [facility] Department [place] [address] * (ABNORMAL) Comprehensive metabolic panel (05/01/2024 8:52 AM HEEL LIFT GOUGER) Sodium 132(L) 135 - 145 mmol/L Potassium, [...] [facility] ([facility]I) Blood 05/01/2024 8:52 AM HEEL LIFT GOUGER 05/01/2024 9:40 AM HEEL LIFT GOUGER Shara Serrano Suzy DO LAB BLOOD ORDERABLES F inal Result [facility] (ALLI) 1 [facility] Department [place] [address] * (ABNORMAL) Blood culture Blood (04/30/2024 8:47 PM HEEL LIFT GOUGER) Direct Specimen Exam Molecular Analysis: Methicillin-suscep tible Staphylococcus aureus (MSSA) detected by the maxx ePlex BCID-GP panel. This test does not exclude the possibility of a mixed bacterial infection. Notification of: Methicillin-suscep tible Staphylococcus aureus (MSSA) called to and read back by: Latrice Wellington MLS ([phone]) on 05/02/2024 01:41:52 by: Fritz Kebede MLS Comment:Testing performed by : [facility], [address] [place]., [address] Direct Specimen Exam Stain: Gram Positive Cocci in clusters Time to culture positivity (anaerobic media): 22.7 hours Notification of: Gram Positive Cocci in clusters called to and read back by: Latrice Wellington MLS ([phone]) on 05/01/2024 23:41:23 by: Fritz Kebede MLS Test result called to and read back by fabio stephenson on 05/02/2024 00:23:23 by latrice RENAE (ALLI) Comment:Testing performed by : [facility], [address] [place] [address]., [id number] Report Final Report: Staphylococcus aureus Methicillin susceptible (MSSA) by penicillin binding protein 2a (PBP2a) testing. (.) AMIE RENAE (ALLI) Comment:Testing performed by : [facility], [address] [place] [address]., [address] Organism STAPHYLOCOCCUS AUREUS AMIE RENAE (ALLI) Blood 04/30/2024 8:47 PM HEEL LIFT GOUGER 05/01/2024 Narrative AMIE RENAE (ALLI) - 05/06/2024 1:15 PM HEEL LIFT GOUGER From a different site than #1. Collection->Peripheral [...] characteristics have been verified by the [facility] Microbiology Laboratory. For questions about this culture, contact the Microbiology Laboratory at [phone]. Interpretive data was last revised on 24. Organism Antibiotic Method Susceptibility Staphylococcus aureus Doxycycline (ILIA) INTERPRETATIO N Susceptible Staphylococcus aureus Linezolid (ILIA) INTERPRETATI ON Susceptible Staphylococcus aureus Trimethoprim with Sulfamethoxazole (ILIA) INTERPRETATION Susceptible Staphylococcus aureus Clindamycin (ILIA) INTERPRETATIO N Susceptible Staphylococcus aureus Erythromycin (ILIA) INTERPRETATIO N Susceptible Staphylococcus aureus Vancomycin (ILIA) INTERPRETATIO N Susceptible Staphylococcus aureus Oxacillin (ILIA) INTERPRETATIO N Susceptible Staphylococcus aureus Cefazolin (ILIA) INTERPRETATIO N Susceptible Staphylococcus aureus Ceftriaxone (ILIA) INTERPRETATIO N Susceptible Guille Wall MD LAB MICROBIOLOGY - GENERAL ORDE [facility] Final Result AMIE RENAE (ALLI) 1 [facility] Department [place] [address] * Blood culture Blood (04/30/2024 8:47 PM HEEL LIFT GOUGER) Report Final Report: No growth Comment:Testing performed by : [facility], 1 [facility], [place]., [address] Blood 04/30/2024 8:47 PM HEEL LIFT GOUGER 05/01/2024 Narrative AMIE RENAE (ALLI) - 05/05/2024 7:00 AM HEEL LIFT GOUGER Collection->Peripheral 1. Blood cultures are incubated for [...] characteristics have been verified by the [facility] Microbiology [facility]. For questions about this culture, contact the Microbiology Laboratory at [phone]. Interpretive data was last revised on 24. us Guille Wall MD LAB MICROBIOLOGY - GENERAL LINDEN LARSEN Final Result AMIE RENAE [place] 1 [facility] Department [place] [address] * MRI Lumbar Spine WO Contrast (04/30/2024 2:26 PM HEEL LIFT GOUGER) Anatomical Region Laterality Modality Spine N/A Magnetic Resonan ce 04/30/2024 4:06 PM HEEL LIFT GOUGER Narrative 04/30/2024 4:12 PM HEEL LIFT GOUGER EXAM DESCRIPTION: MRI LUMBAR SPINE WO CONTRAST [...] Bo Travis M.D. DORIS: DORIS Report ID: [id number] Reading Location: [id number] Procedure Note Bo Travis MD - 04/30/2024 [...] Relevant portions of CT abdomen pelvis with [id number]/2025. FINDINGS: SEGMENTATION: No lumbosacral transitional anatomy. The [...] Bo Travis M.D. DORIS: DORIS Report ID: [id number] Reading Location: [place] [address] Zee Khan MD IMG MRI PROCEDURES Final Result * CT Abdomen Pelvis W Contrast (04/29/2024 9:22 AM HEEL LIFT GOUGER) Anatomical Region Laterality Modality Body N/A Computed Tomogra phy 04/29/2024 12:5 1 PM HEEL LIFT GOUGER Narrative 04/29/2024 12:58 PM HEEL LIFT GOUGER EXAM DESCRIPTION: CT ABDOMEN PELVIS W CONTRAST [...] Alphonso Chaudhry M.D. DORIS: DORIS Report ID: [id number] Reading Location: [id number] Procedure Note Dave Chaudhry MD - 04/29/2024 [...] Alphonso Chaudhry M.D. DORIS: DORIS Report ID: [id number] Reading Location: [place] [address] Zee Khan MD IM CT PROCEDURES Final Result * eGFR (04/29/2024 4:53 AM HEEL LIFT GOUGER) eGFR >90 >=60 mL/min/1. 73 m2 Comment: Interpretive Data Reference Interval Normal >/= 90 mL/min/1.73m2 Mildly decreased* 60 - 89 mL/min/1.73m2 Mildly to moderately decreased 45 - 59 mL/min/1.73m2 Moderately to severely decreased 30 - 44 mL/min/1.73m2 Severely decreased 15 - 29 mL/min/1.73m2 Kidney Failure < 15 mL/min/1.73m2 *Relative to young adult level Estimated glomerular filtration rate is determined by the 2021 CKD-EPI equation recommended by the National Kidney [...] last reviewed 2021. Blood 04/29/2024 4:53 AM HEEL LIFT GOUGER 04/29/2024 5:18 AM HEEL LIFT GOUGER us Zee Khan MD LAB BLOOD ORDERABLES Fin al Result [facility] ([place]) 1 [facility] Department [place] [address] * Differential, auto (04/29/2024 4:53 AM HEEL LIFT GOUGER) Neutrophil abs 2.2 1.5 - 6.5 K/cumm [...] revised on 2017. Blood 04/29/2024 4:53 AM HEEL LIFT GOUGER 04/29/2024 5:17 AM HEEL LIFT GOUGER Zee Khan MD LAB BLOOD ORDERABLES Fin al Result [facility] (ALLI) 1 [facility] Department [place] [address] * (ABNORMAL) CBC with auto differential (04/29/2024 4:53 AM HEEL LIFT GOUGER) WBC 4.4 3.8 - 9.9 K/cumm Hgb [...] 33.4 32.3 - 35.7 g/dL [facility] ([place]) RDW CV 13.4 11.1 - 14.9 % [facility] ([place]) RDW SD 47.5 35.7 - 48.1 fL [facility] ([place]) NRBC abs 0.00 0.00 - 0.01 K/cumm [facility] ([place]) Blood 04/29/2024 4:53 AM HEEL LIFT GOUGER 04/29/2024 5:17 AM HEEL LIFT GOUGER Zee Khan MD LAB BLOOD ORDERABLES Fin al Result AMIE [facility] ([place]) 1 [facility] [place] [address] * (ABNORMAL) Phosphorus (04/29/2024 4:53 AM HEEL LIFT GOUGER) Phosphorus, pl 4.6(H) 2.3 - 4.5 mg/dL Blood 04/29/2024 4:53 AM HEEL LIFT GOUGER 04/29/2024 5:18 AM HEEL LIFT GOUGER Zee Khan MD LAB BLOOD ORDERABLES Fin al Result AMIE [facility] ([place]) 1 [facility] [place] [address] * Magnesium (04/29/2024 4:53 AM HEEL LIFT GOUGER) Magnesium 1.6 1.4 - 2.5 mg/dL Blood 04/29/2024 4:53 AM HEEL LIFT GOUGER 04/29/2024 5:18 AM HEEL LIFT GOUGER Zee Khan MD LAB BLOOD ORDERABLES Fin al Result AMIE RENAE ([place]) 1 [facility] [place] [address] * Hepatic function panel (04/29/2024 4:53 AM HEEL LIFT GOUGER) Bilirubin, total 0.3 0.1 - 1.2 mg/dL Bilirubin, direct 0.1 0.1 - 0.3 mg/dL [facility] (ALLI) Protein, pl 6.9 6.5 - 8.5 g/dL [facility] (ALLI) Albumin 3.6 3.5 - 5.0 g/dL [facility] (ALLI) Alk phos 89 40 - 130 Units/L [facility] (ALLI) ALT 16 7 - 45 Units/L [facility] AST 27 10 - 45 Units/L [facility] (ALLI) Blood 04/29/2024 4:53 AM HEEL LIFT GOUGER 04/29/2024 5:18 AM HEEL LIFT GOUGER us Zee Khan MD LAB BLOOD ORDERABLES Fin al Result [facility] ([place]) 1 [facility] Department [place] [address] * Basic metabolic panel (04/29/2024 4:53 AM HEEL LIFT GOUGER) Pathologist [facility] Sodium 139 135 - 145 mmol/L Potassium, pl 3.8 3.3 - 4.9 mmol/L [facility] (ALLI) Chloride 104 97 - 110 mmol/L [facility]) CO2 25 22 - 32 mmol/L [facility] (ALIL) Anion gap 10 2 - 15 mmol/L [facility] (ALLI) BUN 23 6 - 25 mg/dL [facility] (ALLI) Creatinine 0.61 0.60 - 1.10 mg/dL [facility] Glucose 85 70 - 199 mg/dL [facility] (ALLI) Comment: Interpretive Data Fasting [...] [facility] (ALLI) Blood 04/29/2024 4:53 AM HEEL LIFT GOUGER 04/29/2024 5:18 AM HEEL LIFT GOUGER Zee Khan MD LAB BLOOD ORDERABLES Fin al Result Performing Organization Address City/[facility]/ZIP Co de Phone Number AMIE [facility] (ALLI) 1 [facility] [place] [address] * Lipase (04/28/2024 1:16 PM HEEL LIFT GOUGER) Lipase 90 10 - 99 Units/L Blood 04/28/2024 1:16 PM HEEL LIFT GOUGER 04/28/2024 1:47 PM HEEL LIFT GOUGER Zee Khan MD LAB BLOOD ORDERABLES Fin al Result Performing Organization Address [facility] de Phone Number AMIE [facility] ([place]) 1 [facility] [place] [address] * Hepatic function panel (04/28/2024 1:16 PM HEEL LIFT GOUGER) Bilirubin, total 0.3 0.1 - 1.2 mg/dL [...] Moderately Hemolyzed Specimen Blood 04/28/2024 1:16 PM HEEL LIFT GOUGER 04/28/2024 2:18 PM HEEL LIFT GOUGER Zee Khan MD LAB BLOOD ORDERABLES Fin al Result AMIE RENAE ([place]) 1 [facility] [place] [address] * eGFR (04/26/2024 8:41 AM HEEL LIFT GOUGER) eGFR >90 >=60 mL/min/1. 73 m2 Comment: [...] last reviewed 2021. Blood 04/26/2024 8:41 AM HEEL LIFT GOUGER 04/26/2024 8:57 AM HEEL LIFT GOUGER us Maddie White MD LAB BLOOD ORDERABLES Maeve l Result AMIE RENAE ([place]) 1 [facility] [place] [address] * (ABNORMAL) CBC without differential (04/26/2024 8:41 AM HEEL LIFT GOUGER) WBC 6.4 3.8 - 9.9 K/cumm Hgb [...] abs 0.00 0.00 - 0.01 K/cumm [facility] Blood 04/26/2024 8:41 AM HEEL LIFT GOUGER 04/26/2024 8:57 AM HEEL LIFT GOUGER us Maddie White MD LAB BLOOD ORDERABLES Maeve lopez Result [facility] ([facility] 1 [facility] Department [place] [address] * Comprehensive metabolic panel (04/26/2024 8:41 AM HEEL LIFT GOUGER) Sodium 138 135 - 145 mmol/L Potassium, [...] (ALLI) Glucose 126 70 - 199 mg/dL [facility] ([facility]I) Comment: Interpretive Data [...] [facility] (ALLI) Blood 04/26/2024 8:41 AM HEEL LIFT GOUGER 04/26/2024 8:57 AM HEEL LIFT GOUGER Maddie White MD LAB BLOOD ORDERABLES Maeve lopez Result [facility]IE [facility] (ALLI) 1 [facility] Department [place] [address] * eGFR (04/25/2024 8:53 AM HEEL LIFT GOUGER) eGFR >90 >=60 mL/min/1. 73 m2 Comment: [...] last reviewed 2021. Blood 04/25/2024 8:53 AM HEEL LIFT GOUGER 04/25/2024 8:55 AM HEEL LIFT GOUGER us Chang Mckeon MD LAB BLOOD ORDERABLE S Final Result [facility] ([place]) 1 [facility] Department [place] [address] * (ABNORMAL) Differential, auto (04/25/2024 8:53 AM HEEL LIFT GOUGER) Neutrophil abs 6.3 1.5 - 6.5 K/cumm [...] revised on 2017. Blood 04/25/2024 8:53 AM HEEL LIFT GOUGER 04/25/2024 8:55 AM HEEL LIFT GOUGER us Chang Mckeon MD LAB BLOOD ORDERABLE S Final Result AMIE [facility] (ALLI) 1 [facility] Department of Laboratories [place], [place] [id number] * (ABNORMAL) CBC with auto differential (04/25/2024 8:53 AM HEEL LIFT GOUGER) WBC 7.4 3.8 - 9.9 K/cumm Hgb [...] RDW CV 13.1 11.1 - 14.9 % [facility] (ALLI) RDW SD 43.8 35.7 - 48.1 fL [facility] ([place]) NRBC abs 0.00 0.00 - 0.01 K/cumm [facility] ([place]) Blood 04/25/2024 8:53 AM HEEL LIFT GOUGER 04/25/2024 8:55 AM HEEL LIFT GOUGER Chang Mckeon MD LAB BLOOD ORDERABLE S Final Result Performing Organization Address [facility] Co de Phone Number [facility] ([place]) 1 [facility] [place] [address] * aPTT (04/25/2024 8:53 AM HEEL LIFT GOUGER) aPTT 29 28 - 38 sec [facility] ([place]) Comment: Interpretive Data Heparin therapeutic range: 66.0 - 100.0 seconds. Range based on correlation with therapeutic heparin activity range of 0.3 - 0.7 Units/mL. Current interpretive data was last revised on 2023. Blood 04/25/2024 8:53 AM HEEL LIFT GOUGER 04/25/2024 5:58 PM HEEL LIFT GOUGER us Maddie White MD LAB BLOOD ORDERABLES Maeve l Result Performing Organization Address [facility] Co de Phone Number [facility] ([place]) 1 [facility] [place] [address] * Protime-INR (04/25/2024 8:53 AM HEEL LIFT GOUGER) PT 11.5 9.7 - 13.0 sec [facility] ([place]) INR 1.06 0.90 - 1.20 [facility] ([place]) Comment: Interpretive data Oral anticoagulant therapeutic ranges: Venous thromboembolism prophylaxis or treatment: 2.0-3.0 CARDIOLOGY Standard range: 2.0-3.0 High-intensity range: 2.5-3.5 Refer to indication-specific guidelines for appropriate target ranges for prosthetic heart valve replacement. Current interpretive data was last revised on 2019. Blood 04/25/2024 8:53 AM HEEL LIFT GOUGER 04/25/2024 5:58 PM HEEL LIFT GOUGER Maddie White MD LAB BLOOD ORDERABLES Maeve l Result Performing Organization Address [facility]/ZIP Co de Phone Number AMIE RENAE ([place]) 1 [facility] [place] [address] * Magnesium (04/25/2024 8:53 AM HEEL LIFT GOUGER) Magnesium 1.4 1.4 - 2.5 mg/dL Blood 04/25/2024 8:53 AM HEEL LIFT GOUGER 04/25/2024 9:56 AM HEEL LIFT GOUGER us Chang Mckeon MD LAB BLOOD ORDERABLE S Final Result Performing Organization Address [facility] Co de Phone Number AMIE RENAE ([place]) 1 [facility] [place] [address] * (ABNORMAL) Ethanol (04/25/2024 8:53 AM HEEL LIFT GOUGER) Ethanol 59(H) <=10 mg/dL Comment: Interpretive Data Legal limit of intoxication > or = 80 mg/dL Levels > or = 400 mg/dL are potentially TOXIC. Current interpretive data was last revised on 2018. Blood 04/25/2024 8:53 AM HEEL LIFT GOUGER 04/25/2024 8:55 AM HEEL LIFT GOUGER us Chang Mckeon MD LAB BLOOD ORDERABLE S Final Result Performing Organization Address [facility] Co de Phone Number AMIE RENAE ([place]) 1 [facility] [place] [address] * (ABNORMAL) Comprehensive metabolic panel (04/25/2024 8:53 AM HEEL LIFT GOUGER) Sodium 134(L) 135 - 145 mmol/L Potassium, pl 3.5 3.3 - 4.9 mmol/L [facility] (ALLI) Chloride 99 97 - 110 [...] Hemolyzed S pecimen Blood 04/25/2024 8:53 AM HEEL LIFT GOUGER 04/25/2024 8:55 AM HEEL LIFT GOUGER us Chang Mckeon MD LAB BLOOD ORDERABLE S Final Result [facility]IE [facility] (ALLI) 1 [facility] Department [place] [address] * eGFR (04/25/2024 8:33 AM HEEL LIFT GOUGER) eGFR >90 >=60 mL/min/1. 73 m2 Comment: [...] last reviewed 2021. Blood 04/25/2024 8:33 AM HEEL LIFT GOUGER 04/25/2024 8:41 AM HEEL LIFT GOUGER us Jesenia Mckeon MD LAB BLOOD ORDERABLES Final Re sult AMIE RENAE ([place]) 1 [facility] Department [place] [address] * (ABNORMAL) Drugs of Abuse Screen, Urine without Confirmation (04/25/2024 8:33 AM HEEL LIFT GOUGER) Amphetamine, ur Screen Positive, presumptive (A) CutOff [...] revised on 2017. Urine 04/25/2024 8:33 AM HEEL LIFT GOUGER 04/25/2024 8:43 AM HEEL LIFT GOUGER Narrative AMIE RENAE (ALLI) - 04/25/2024 9:03 AM HEEL LIFT GOUGER Drug of Abuse screening is performed by immunoassay for medical purposes only. This is not to be used for Pain Management purposes. us Jesenia Mckeon MD LAB URINE ORDERABLES Final Re sult AMIE RENAE ([place]) 1 [facility] Department [place] [address] * (ABNORMAL) CBC without differential (04/25/2024 8:33 AM HEEL LIFT GOUGER) WBC 7.3 3.8 - 9.9 K/cumm Hgb 14.7 11.9 - 15.5 g/dL [facility] (ALLI) Hct 41.6 35.6 - 45.5 % [facility] (ALLI) Plt 121(L) 150 - 400 K/cumm [facility] (ALLI) MPV 10.1 9.1 - 12.3 fL [facility] RBC 4.53 3.90 - 5.20 M/cumm [facility] ([place] MCV 91.8 81.3 - 96.4 fL [facility] ([place]) MCH 32.5 27.1 - 33.3 pg [facility] ([place]) MCHC 35.3 32.3 - 35.7 g/dL [facility] ([place] RDW CV 12.9 11.1 - 14.9 % [facility] ([place]) RDW SD 42.5 35.7 - 48.1 fL [facility] ([place]) NRBC abs 0.00 0.00 - 0.01 K/cumm [facility] Blood 04/25/2024 8:33 AM HEEL LIFT GOUGER 04/25/2024 8:41 AM HEEL LIFT GOUGER us Jesenia Mckeon MD LAB BLOOD ORDERABLES Final Re sult [facility] (ALLI) 1 [facility] Department [place] [address] * (ABNORMAL) Comprehensive metabolic panel (04/25/2024 8:33 AM HEEL LIFT GOUGER) Sodium 135 135 - 145 mmol/L Potassium, pl 3.4 3.3 - 4.9 mmol/L [facility] ([facility] Chloride 101 97 - 110 mmol/L [facility] ([place] CO2 19(L) 22 - 32 mmol/L [facility] ([place]) Anion gap 15 2 - 15 mmol/L [facility] ([place]) BUN 13 6 - 25 mg/dL [facility] Creatinine 0.47(L) 0.60 - 1.10 [...] Hemolyzed S pecimen Blood 04/25/2024 8:33 AM HEEL LIFT GOUGER 04/25/2024 8:41 AM HEEL LIFT GOUGER us Jesenia Mckeon MD LAB BLOOD ORDERABLES Final Re sult AMIE [facility] (ALLI) 1 [facility] Department [place] [address] from Last 3 Months Insurance [employer] [facility] Advance Directives For more information, please contact: [phone] * Full Code (Latest Code Status on File) Date Activated Date Inactivated Comments 04/25/2024 5:41 PM 05/07/2024 7:44 PM Care Teams Erp Programmer Relationship Specialty Start Date End Date Bladimir Crowder MD [address] [place] [id number] PCP - General Family Medicine 04/25/24
--- OUTSIDE RECORDS SUMMARY | 2024-05-25 08:44 | XMS_ITS | Clinical Summary ---
Author Organization [facility] Address [facility] [place] [address] Care Team Providers Care Geospatial Engineer Name Role Phone Ruma Meade MD Primary Care Provider [phone]- [phone] Allergies No known active allergies Medications gabapentin (NEURONTIN) 300 MG capsule Take 400 mg by mouth 3 (three) times daily. 11/03/2023 Active Active Problems Problem Noted Date Diagnosed Date Alcoholic pancreatitis (HHS/HCC) 01/13/2023 Pancreatitis (HHS/HCC) 01/11/2023 Encounters Date Type Department Care Team Description 05/09/2024 Transcribe Orders [facility] [address] [place] [address] Leticia Khalil MD 04/03/2024 10:03 AM ACCOUNT SUPPORT ANALYST - 04/03/2024 11:59 PM ACCOUNT SUPPORT ANALYST Hospital Encounter [facility] [address] [place] [address] Leticia Khalil MD Discharge Disposition: Home or Self Care (Routine Discharge) 04/03/2024 Travel 03/29/2024 9:00 AM ACCOUNT SUPPORT ANALYST - 03/29/2024 11:59 PM ACCOUNT SUPPORT ANALYST Hospital Encounter [facility] [address] [place] [address] Bladimir Latham MD Discharge Disposition: Home or Self Care (Routine Discharge) 03/28/2024 2:32 PM ACCOUNT SUPPORT ANALYST - 03/28/2024 11:59 PM ACCOUNT SUPPORT ANALYST Hospital Encounter [facility] [address] [place] [address] Leticia Khalil MD Discharge Disposition: Home or Self Care (Routine Discharge) 03/28/[address] [place] [place] [address] Leticia Khalil MD 03/28/2024 Travel 03/18/2024 3:01 PM ACCOUNT SUPPORT ANALYST - 03/18/2024 4:40 PM ACCOUNT SUPPORT ANALYST Emergency [facility] [address] [facility] [place] [address] Chni Cobb DO Abdominal Pain Discharge Disposition: Home or Self Care (Routine Discharge) 03/18/2024 Travel 03/06/[address] [address] Samantha Mayo PA Referral 03/05/2024 9:30 AM ACCOUNT SUPPORT ANALYST Office Visit [address] [address] Samantha Mayo PA New Patient; Hand Pain (BILATERAL) 03/05/2024 Travel 02/29/2024 Chart Prep [address] [address] Samantha Mayo PA from Last 3 Months [...] place to sleep or slept in a senior care (including now)? Yes 01/11/2023 Comments No Sex and Gender Information Value Date Recorded Sex Assigned at Not on file Legal Sex Female 2:39 PM CDT Gender Identity Not on file Sexual Orientation Not on file Last Filed Vital Signs Vital Sign Reading Time Taken Comments Blood Pressure 139/79 03/18/2024 4:25 PM ACCOUNT SUPPORT ANALYST Pulse 75 03/18/2024 4:25 PM ACCOUNT SUPPORT ANALYST Temperature 36.4 C (97.5 F) 03/18/2024 3:16 PM ACCOUNT SUPPORT ANALYST Respiratory Rate 18 03/18/2024 4:25 PM ACCOUNT SUPPORT ANALYST Oxygen Saturation 98% 03/18/2024 4:25 PM ACCOUNT SUPPORT ANALYST Inhaled Oxygen Concentration - - Weight 68 kg (150 lb) 03/18/2024 3:16 PM ACCOUNT SUPPORT ANALYST Height 162.6 cm (5' 4 ) 03/18/2024 3:16 PM ACCOUNT SUPPORT ANALYST Body Mass Index 25.75 03/18/2024 3:16 PM ACCOUNT SUPPORT ANALYST Plan of Treatment Upcoming Encounters Date Type Department Care Team (Late st Contact Info) Description 05/26/2024 10:00 PM ACCOUNT SUPPORT ANALYST Hospital Encounter [facility] [address] [facility] [place] [address] Leticia Khalil MD [address] [place] [address] Health Maintenance Due Date Last [...] CHEST WO CON Routine 04/03/2024 10:16 AM ACCOUNT SUPPORT ANALYST Lung nodule MG SCREENING W BIRGIT LUCIAN DIGI Routine 03/29/2024 10:02 AM ACCOUNT SUPPORT ANALYST Visit for screening mammogram TBGOLD-TUBERCULOSIS TST CELL MEDIATED IMMUNITY Routine 03/28/2024 2:50 PM ACCOUNT SUPPORT ANALYST Lung nodule FUNGAL PANEL 1 Routine 03/28/2024 2:50 PM ACCOUNT SUPPORT ANALYST Lung nodule DRUG SCREEN RAPID STAT 03/18/2024 3:3 5 PM ACCOUNT SUPPORT ANALYST HC URINALYSIS AUTO W/MICRO STAT 03/18/2024 3:35 PM ACCOUNT SUPPORT ANALYST ETHANOL STAT 03/18/2024 3:28 PM ACCOUNT SUPPORT ANALYST MAGNESIUM STAT 03/18/2024 3:28 PM ACCOUNT SUPPORT ANALYST LIPASE STAT 03/18/2024 3:28 PM ACCOUNT SUPPORT ANALYST LDH, LACTATE DEHYDROGENASE STAT 03/18/2024 3:28 PM ACCOUNT SUPPORT ANALYST LACTIC ACID W REFLEX (SEPSIS) STAT 03/18/2024 3:28 PM ACCOUNT SUPPORT ANALYST COMPREHENSIVE METABOLIC PANEL STAT 03/18/2024 3:28 PM ACCOUNT SUPPORT ANALYST CBC W/DIFF AUTOMATED STAT 03/18/2024 3:28 PM ACCOUNT SUPPORT ANALYST from Last 3 Months Results * CT CHEST WO CON (04/03/2024 10:16 AM ACCOUNT SUPPORT ANALYST) Anatomical Region Laterality Modality Chest Computed Tomogra phy 04/03/2024 12:1 3 PM ACCOUNT SUPPORT ANALYST Impressions 04/03/2024 3:06 PM ACCOUNT SUPPORT ANALYST Impression: 1. Right lower lobe pulmonary nodule [...] 04/03/2024 12:13 PM Narrative 04/03/2024 3:06 PM ACCOUNT SUPPORT ANALYST [address] [place] [address] Examination: CT CHEST WO CON Clinical Information: [...] Procedure Note Vivek Ellison MD - 04/03/2024 [facility] [address] [place] [address] Examination: CT CHEST WO CON Clinical Information: [...] W BIRGIT LUCIAN DIGI (03/29/2024 10:02 AM ACCOUNT SUPPORT ANALYST) Anatomical Region Laterality Modality Breast Bilateral Mammography 03/29/2024 11:5 4 AM ACCOUNT SUPPORT ANALYST Impressions 03/29/2024 11:55 AM ACCOUNT SUPPORT ANALYST IMPRESSION: No mammographic evidence of malignancy. Recommendation: 1: Routine Screening Bilateral in 1 Year Assessment: ACR BI-RADS 2 - BENIGN FINDING(S) Ordered By: BLADIMIR LATHAM Interpreted By: Varun Quevedo MD, 03/29/2024 11:54 AM Narrative 03/29/2024 11:55 AM ACCOUNT SUPPORT ANALYST [address] [place] [address] Examination: Digital screening mammogram with [...] FUNGAL ANTIBODY PANEL (ID) (03/28/2024 2:50 PM ACCOUNT SUPPORT ANALYST) ASPERGILLUS FLAVUS AB Negative Negative 2:34 PM ACCOUNT SUPPORT ANALYST [facility] SANCHEZ-CHANT LUPILLO ASPERGILLUS NIGER AB Negative Negative 03/12 2:34 PM ACCOUNT SUPPORT ANALYST [facility] SANCHEZ-CHANT LUPILLO ASPERGILLUS FUMIGATUS AB Negative Negative 04/02/2024 2:34 PM ACCOUNT SUPPORT ANALYST [facility] SANCHEZ-CHANT LUPILLO Comment: Interpretive Criteria: Negative: Antibody not detected Positive: Antibody detected A positive result is represented by 1 or more precipitin bands, and may indicate fungus ball, allergic bronchopulmonary aspergillosis (EUSEBIO) or invasive aspergillosis. Generally, the appearance of 3-4 bands indicates either fungus ball or EUSEBIO. BLASTOMYCES AB Negative Negative 04/02/2024 2:34 PM ACCOUNT SUPPORT ANALYST [facility] SANCHEZ-ORLYT LUPILLO Comment: Interpretive Criteria: Negative: Antibody not detected Positive: Antibody detected A positive result is diagnostic of active or recent blastomycosis and is found in approximately 80% of proven cases of blastomycosis. COCCIDIODES AB (ID) Negative Negative 04/02 2:34 PM ACCOUNT SUPPORT ANALYST [facility] SANCHEZ-ORLYT LUPILLO Comment: Interpretive Criteria: [...] H AB Negative Negative 04/02/2024 2:34 PM ACCOUNT SUPPORT ANALYST [facility] SANCHEZRUBEN WESLEY Comment: This immunodiffusion [...] the diagnosis of histoplasmosis. Test Performed by [facility] [place], [facility], [id number] [place] [address] Shawn Christianson M.D., Ph.D., Director of Laboratories , [facility] [id number] HISTOPLASMA CAPSULATUM M AB Negative Negative 04/02/2024 2:34 PM ACCOUNT SUPPORT ANALYST [facility] SANCHEZTHERESA WESLEY 03/28/2024 2:50 PM ACCOUNT SUPPORT ANALYST [facility] Nilo Khalil MD LABORATORY Final Result [facility] [address] , * QUANTIFERON TBGOLD TUBERCULOSIS TEST (03/28/2024 2:50 PM ACCOUNT SUPPORT ANALYST) TB1 AG MINUS NIL 0.03 IU/ML 03/29/20 1:43 PM ACCOUNT SUPPORT ANALYST [facility] TB2 AG MINUS NIL 0.01 IU/ML 03/29/20 24 1:43 PM ACCOUNT SUPPORT ANALYST [facility] TB QUANTIFERON NEGATIVE NEGATIVE 03/29/2024 1:43 PM ACCOUNT SUPPORT ANALYST [facility] TB INTERPRETATION M. tuberculosis infection unlikely but cannot be excluded especially when any illness is consistent with TB disease and/or likelihood of progression to disease is increased. In patients at high risk to M. tuberculosis infection, a second test should be considered. 03/29/2024 1:43 PM ACCOUNT SUPPORT ANALYST [facility] 03/28/2024 2:50 PM ACCOUNT SUPPORT ANALYST Leticia Khalil MD LABORATORY Final Result [facility] [address] [place] [address], [place] [phone] [id number] * (ABNORMAL) DRUG SCREEN RAPID (03/18/2024 3:35 PM ACCOUNT SUPPORT ANALYST) CANNABINOIDS SCREEN (U) POSITIVE(A) NEGATIVE 03/18/2024 3:57 PM ACCOUNT SUPPORT ANALYST [facility] PHENCYCLIDINE PCP (U) NEGATIVE NEGATIVE 03/18/2024 3:57 PM ACCOUNT SUPPORT ANALYST [facility] COCAINE METABOLITES (U) NEGATIVE NEGATIVE 03/18/2024 3:57 PM ACCOUNT SUPPORT ANALYST [facility] METHAMPHETAMINE SCREEN (U) NEGATIVE NEGATIVE 03/18/2024 3:57 PM ACCOUNT SUPPORT ANALYST [facility] OPIATE SCREEN (U) POSITIVE(A) NEGATIVE 2023 3:57 PM ACCOUNT SUPPORT ANALYST [facility] AMPHETAMINE SCREEN (U) NEGATIVE NEGATIVE 03/18/2024 3:57 PM ACCOUNT SUPPORT ANALYST [facility] BENZODIAZEPINES SCREEN (U) POSITIVE(A) NEGATIVE 03/18/2024 3:57 PM ACCOUNT SUPPORT ANALYST [facility] TRICYCLIC ANTIDEPRESSANT SCREEN (U) NEGATIVE NEGATIVE 03/18/2024 3:57 PM ACCOUNT SUPPORT ANALYST [facility] METHADONE (U) NEGATIVE NEGATIVE 03/18/2024 3:57 PM ACCOUNT SUPPORT ANALYST [facility] BARBITURATES SCREEN (U) NEGATIVE NEGATIVE 03/18/2024 3:57 PM ACCOUNT SUPPORT ANALYST [facility] OXYCODONE SCREEN (U) NEGATIVE NEGATIVE 03/18/2024 3:57 PM ACCOUNT SUPPORT ANALYST [facility] URINE TOX COMMENT THIS TEST METHODOLOGY IS DESIGNED AND OFFERED A RAPID TURNAROUND, QUALITATIVE SCREENING PROCEDURE TO AID IN THE IMMEDIATE MEDICAL ASSESSMENT OF PATIENTS SUSPECTED OF SUBSTANCE ABUSE. 03/18/2024 3:39 PM ACCOUNT SUPPORT ANALYST [facility] Comment: CLINICAL CONSIDERATION AND PROFESSIONAL JUDGMENT MUST BE APPLIED TO ANY DRUG OF ABUSE TEST RESULT, BOTH POSITIVE AND NEGATIVE. CONFIRMATORY QUANTITATIVE RESULTS ARE AVAILABLE THROUGH OUR REFERENCE LABORATORY. URINE SPECIMEN / Unknown 03/18/2024 3:35 PM ACCOUNT SUPPORT ANALYST us Chin Cobb DO URINE ORDERABLES Final Result [facility] [address] [place] [address], * (ABNORMAL) URINALYSIS (03/18/2024 3:35 PM ACCOUNT SUPPORT ANALYST) COLOR (U) YELLOW 03/18/2024 3:59 PM ACCOUNT SUPPORT ANALYST [facility] TRANSPARENCY CLEAR 03/18/2024 3:59 PM ACCOUNT SUPPORT ANALYST [facility] SPECIFIC GRAVITY (U) 1.020 1.000 - 1.025 03/18/2024 3:59 PM ACCOUNT SUPPORT ANALYST [facility] U PH 6.0 5.0 - 8.0 03/18/2024 3:59 PM ACCOUNT SUPPORT ANALYST [facility] LEUKOCYTES (U) NEGATIVE NEGATIVE 03/18/2024 3:59 PM ACCOUNT SUPPORT ANALYST [facility] NITRITES NEGATIVE NEGATIVE 03/18/2024 3:59 PM ACCOUNT SUPPORT ANALYST [facility] PROTEIN RANDOM (U) NEGATIVE NEGATIVE 03/18/2024 3:59 PM ACCOUNT SUPPORT ANALYST [facility] GLUCOSE (U) NEGATIVE NEGATIVE 03/18/2024 3:59 PM ACCOUNT SUPPORT ANALYST [facility] KETONES MG/DL (U) NEGATIVE NEGATIVE 03/18/2024 3:59 PM ACCOUNT SUPPORT ANALYST [facility] UROBILINOGEN 1.0(H) <1.0 EU/DL 03/18/2024 3:59 PM ACCOUNT SUPPORT ANALYST [facility] BILIRUBIN (U) NEGATIVE NEGATIVE 03/18/2024 3:59 PM ACCOUNT SUPPORT ANALYST [facility] BLOOD (U) NEGATIVE NEGATIVE 03/18/2024 3:59 PM ACCOUNT SUPPORT ANALYST [facility] WBC/HPF 0-5 0 - 5 /HPF 03/18/2024 3:59 PM ACCOUNT SUPPORT ANALYST [facility] RBC/HPF 0-5 0 - 5 /HPF 03/18/2024 3:59 PM ACCOUNT SUPPORT ANALYST [facility] EPI/LPF OCCASIONAL /LPF 03/18/2024 3:59 PM ACCOUNT SUPPORT ANALYST [facility] BACTERIA (U) 1+ /HPF 03/18/2024 3:59 PM ACCOUNT SUPPORT ANALYST [facility] URINE SPECIMEN OBTAINED BY CLEAN CATCH PROCEDURE / Unknown 03/18/2024 3:35 PM ACCOUNT SUPPORT ANALYST us Chin Cobb DO URINE ORDERABLES Final Result Performing Organization Address City/[facility] [address]/ZIP Co de Phone Number [facility] [address] [place] [address], * LACTIC ACID W REFLEX (SEPSIS) (03/18/2024 3:28 PM ACCOUNT SUPPORT ANALYST) LACTIC ACID VENOUS 1.1 0.4 - 2.0 MMOL/L 03/18/2024 3:54 PM ACCOUNT SUPPORT ANALYST [facility] 03/18/2024 3:28 PM ACCOUNT SUPPORT ANALYST us Chin Cobb DO LABORATORY Final Result Performing Organization Address [facility] [address]/ZIP Co de Phone Number [facility] [address] [place] [address], * (ABNORMAL) COMPREHENSIVE METABOLIC PANEL (03/18/2024 3:28 PM ACCOUNT SUPPORT ANALYST) SODIUM S/P/B 136 136 - 145 MMOL/L 03/18/2024 4:02 PM ACCOUNT SUPPORT ANALYST [facility] POTASSIUM S/P/B 3.7 3.5 - 5.1 MMOL/L 03/18/2024 4:02 PM ACCOUNT SUPPORT ANALYST [facility] CHLORIDE S/P/B 100 98 - 107 MMOL/L 03/18/2024 4:02 PM [facility] CO2 27.7 21.0 - 32.0 MMOL/L 03/18/2024 4:02 PM ACCOUNT SUPPORT ANALYST [facility] GLUCOSE 69(L) 70 - 99 MG/DL 03/18/2024 4:02 PM ACCOUNT SUPPORT ANALYST [facility] Comment: FASTING GLUCOSE 100 TO 125 MG/DL IS CONSISTENT WITH IMPAIRED FASTING GLUCOSE. FASTING GLUCOSE >125 MG/DL IS CONSISTENT WITH DIABETES. RANDOM GLUCOSE >200 MG/DL WITH HYPERGLYCEMIC SYMPTOMS IS CONSISTENT WITH DIABETES. PER ADA GUIDELINES BUN 17 6 - 24 MG/DL 03/18/2024 4:02 PM [facility] CREATININE S/P/B 0.61 0.55 - 1.02 MG/DL 03/18/2024 4:02 PM [facility] CALCIUM S/P/B 9.0 8.4 - 10.5 MG/DL 03/18/2024 4:02 PM [facility] BILIRUBIN TOTAL S/P/B 0.6 0.2 - 1.0 MG/DL 03/18/2024 4:02 PM [facility] Comment: THIS ASSAY IS NOT RECOMMENDED FOR PATIENTS UNDERGOING TREATMENT WITH ELTROMBOPAG DUE TO THE POTENTIAL FOR FALSELY ELEVATED RESULTS. ALKALINE PHOSPHATASE S/P/B 90 39 - 100 U/L 03/18/2024 4:02 PM [facility] AST 29 15 - 37 U/L 03/18/2024 4:02 PM [facility] ALT 26 14 - 59 U/L 03/18/2024 4:02 PM [facility] TOTAL PROTEIN S/P/B 7.3 6.4 - 8.2 G/DL 03/18/2024 4:02 PM [facility] ALBUMIN S/P/B 3.6 3.4 - 5.0 G/DL 03/18/2024 4:02 PM [facility] ANION GAP 8.3 5.0 - 15.0 MMOL/L 03/18/2024 4:02 PM [facility] OSMOLALITY (CALC) 282 MOSM/KG 024 4:02 PM [facility] Comment:REFERENCE RANGE NOT ESTABLISHED GFR ESTIMATE >90 >89 ML/MIN/1. 73 M2 03/18/2024 4:02 PM [facility] GFR NOTES GFR REFERENCE S: 03/18/2024 4:02 PM [facility] Comment: THE ESTIMATED GFR IS [...] FAILURE: <15 ml/min/1.73 m2 03/18/2024 3:28 PM ACCOUNT SUPPORT ANALYST us Chin Cobb DO LABORATORY Final Result Performing Organization Address [facility] [address]/ZIP Co de Phone Number [facility] [address] [place] [address], * LDH, LACTATE DEHYDROGENASE (03/18/2024 3:28 PM ACCOUNT SUPPORT ANALYST) LDH 155 81 - 234 UNITS/L 03/18/2024 4:10 PM ACCOUNT SUPPORT ANALYST [facility] 03/18/2024 3:28 PM ACCOUNT SUPPORT ANALYST us Chin Cobb DO LABORATORY Final Result Performing Organization Address [facility] [address]/[facility] de Phone Number [facility] [address] [place] [address], * (ABNORMAL) CBC W/DIFF AUTOMATED (03/18/2024 3:28 PM ACCOUNT SUPPORT ANALYST) WBC 4.01 4.00 - 10.80 x10'3/uL 03/18/2024 3:41 PM ACCOUNT SUPPORT ANALYST [facility] RBC 3.80(L) 4.10 - 5.40 x10'6/uL 03/18/2024 3:41 PM ACCOUNT SUPPORT ANALYST [facility] HGB 12.7 12.0 - 16.0 G/DL 03/18/2024 3:41 PM ACCOUNT SUPPORT ANALYST [facility] HCT 37.0 36.0 - 47.0 % 03/18/2024 3:41 PM ACCOUNT SUPPORT ANALYST [facility] MCV 97.4 78.0 - 100.0 FL 03/18/2024 3:41 PM [facility] MCH 33.4(H) 27.0 - 31.0 PG 03/18/2024 3:41 PM [facility] MCHC 34.3 33.0 - 36.0 G/DL 03/18/2024 3:41 PM [facility] RDW 12.0 11.5 - 14.5 % 03/18/2024 3:41 PM [facility] PLT 87(L) 150 - 350 x10'3/uL 03/18/2024 3:41 PM [facility] MPV 10.3 7.4 - 10.4 FL 03/18/2024 3:41 PM [facility] CBC COMMENT NORMAL REFERENCE RANGE NOT ESTABLISHED FOR THE PROPORTIONAL LEUKOCYTE DIFFERENTIAL. 03/18/2024 3:41 PM [facility] NEUTROPHILS % 51.4 % 03/18/2024 4:15 PM [facility] LYMPHOCYTES % 36.2 % 03/18/2024 4:15 PM [facility] MONOCYTES % 9.2 % 03/18/2024 4:15 PM [facility] EOSINOPHILS % 2.5 % 03/18/2024 4:15 PM [facility] BASOPHILS % 0.5 % 03/18/2024 4:15 PM [facility] IMMATURE GRANS % 0.2 % 03/18/20 4:15 PM [facility] NRBC % 0.0 % 03/18/2024 4:15 PM [facility] ABS. NEUTROPHILS 2.06 1.60 - 8.30 x10'3/uL 03/18/2024 4:15 PM [facility] ABS. LYMPHOCYTES 1.45 0.80 - 4.70 x10'3/uL 03/18/2024 4:15 PM [facility] ABS. MONOCYTES 0.37 0.00 - 1.50 x10'3/uL 03/18/2024 4:15 PM ACCOUNT SUPPORT ANALYST [facility] ABS. EOSINOPHILS 0.10 0.00 - 0.40 x10'3/uL 03/18/2024 4:15 PM ACCOUNT SUPPORT ANALYST [facility] ABS. BASOPHILS 0.02 0.00 - 0.20 x10'3/uL 03/18/2024 4:15 PM ACCOUNT SUPPORT ANALYST [facility] ABS. IMMATURE GRANULOCYTES 0.01 0.00 - 0.03 x10'3/uL 03/18/2024 4:15 PM ACCOUNT SUPPORT ANALYST [facility] ABS. NUCLEATED RBC'S 0.00 0.00 - 0.01 x10'3/uL 03/18/2024 4:15 PM ACCOUNT SUPPORT ANALYST [facility] PLT MORPH. DECREASED 03/18/2024 4:15 PM ACCOUNT SUPPORT ANALYST [facility] RBC MORPHOLOGY NORMAL 03/18/2024 4:15 PM ACCOUNT SUPPORT ANALYST [facility] 03/18/2024 3:28 PM ACCOUNT SUPPORT ANALYST us Chin Cobb DO LABORATORY Final Result Performing Organization Address [facility] [address]/[place] [address], * (ABNORMAL) MAGNESIUM (03/18/2024 3:28 PM ACCOUNT SUPPORT ANALYST) MAGNESIUM 1.6(L) 1.8 - 2.4 MG/DL 03/18/2024 4:10 PM ACCOUNT SUPPORT ANALYST [facility] 03/18/2024 3:28 PM ACCOUNT SUPPORT ANALYST us Chin Cobb DO LABORATORY Final Result Performing Organization Address [facility] [address]/ZIP Co de Phone Number [facility] [address] [place] [address], * (ABNORMAL) LIPASE (03/18/2024 3:28 PM ACCOUNT SUPPORT ANALYST) LIPASE 83(H) 16 - 77 UNITS/L 03/18/2024 4:10 PM ACCOUNT SUPPORT ANALYST [facility] 03/18/2024 3:28 PM ACCOUNT SUPPORT ANALYST us Chin Cobb DO LABORATORY Final Result [facility] [address] [place] [address], [place] [phone] * ETHANOL (03/18/2024 3:28 PM ACCOUNT SUPPORT ANALYST) ALCOHOL S/P/B <0.003 <0.003 G/DL 03/18/2024 4:02 PM ACCOUNT SUPPORT ANALYST [facility] 03/18/2024 3:28 PM ACCOUNT SUPPORT ANALYST us Chin Cobb DO LABORATORY Final Result Performing Organization Address City/[facility] [address]/[facility] Co de Phone Number [facility] [address] [place] [address], [place] [phone] from Last 3 Months Insurance MEDICAID Advance Directives * Full Code (Latest Code Status on File) Date Activated Date Inactivated Comments 01/11/2023 7:19 PM 01/14/2023 10:44 PM Care Teams Geospatial Engineer Relationship Specialty Start Date End Date Ruma Meade MD [address] [place] [phone] PCP - General FAMILY PRACTICE 03/18/24
--- OUTSIDE RECORDS SUMMARY | 2024-05-25 08:45 | XMS_ITS | Referral Summary ---
Author Organization [facility] Address [address] [place] [address] Care Team Providers Care Hull Inspector Name Role Phone Bladimir Crowder MD Primary Care Provider Encounters Date Type Department Care Team Description 05/17/2024 AMH Outreach [facility] Off [facility] [address] [place], [place] [phone] HilarioJana garcía 05/08/2024 Telephone [facility] [address] [address] Shara Yates DO 05/07/2024 Documentation [facility] [address] [place], [place] [phone] Latrice Dumont 04/25/2024 10:50 AM CONCRETE BUILDINGS ASSEMBLER - 05/07/2024 3:39 PM CONCRETE BUILDINGS ASSEMBLER Hospital Encounter [facility] [address] [place] [address] Maddie White MD Sargsyan, Narine, MD Sinha, Chandni, MD Abegunde, Veronica O., MD Nations, Matthew Austin, DO Alcohol withdrawal syndrome without complication (HCC) (Primary Dx); Unspecified mood disorder (HCC) Discharge Disposition: Discharge to home or self care 05/05/2024 Documentation [facility] [address] [place], [place] [phone] Hilario Jana Emmanuel 05/03/2024 Documentation [facility] [address] [place], [place] [phone] Hilario, Jana EValentín 05/02/2024 Documentation [facility] [address] [place], [place] [phone] Latrice Dumont 05/01/2024 Documentation [facility] [address] [place], [place] [phone] Hilario, Jana E. 04/30/2024 Documentation [facility] [address] [place], [place] [phone] Latrice Dumont 04/29/2024 Documentation [facility] [address] [place], [place] [phone] Latrice Dumont 04/27/2024 AMH Enrollment [facility] [address] [place], [place] [phone] Hilario, Jana E. 04/25/2024 Documentation [facility] [address] [place] [address] Hilario, Jana E. 04/25/2024 Documentation [facility] [address] [place] [address] Hilario, Jana E. 04/25/2024 8:30 AM CONCRETE BUILDINGS ASSEMBLER Lab [address] [phone] 04/23/2024 Documentation [facility] [address] [place] [address] Latrice Dumont from Last 3 Months Allergies [...] by mouth nightly 30 capsule 05/07/19 25 025 Active sertraline (ZOLOFT) 100 mg tablet [...] (three) times a day 90 tablet 05/07/[address] (PROTONIX) 40 mg EC tabletIndication s:Treatment of Non-Bleeding Gastric Disorder Take 1 tablet (40 mg total) by mouth daily 30 tablet 05/08/19 25 025 Active pancrelipase (CREON) 6,000 units of lipase capsuleIndicatio ns:exocrine pancreatic insufficiency Take 1 capsule (6,000 units of lipase total) by mouth 3 (three) times a day 100 capsule 05/08/19 025 Active prazosin (MINIPRESS) 1 mg capsule Take 3 capsules (3 mg total) by mouth nightly 04/12/19 025 Discontinued(S top Taking at Discharge) traZODone (DESYREL) 100 mg tablet Take 1.5 tablets (150 mg total) by mouth nightly 04/12/19 025 Discontinued(S top Taking at Discharge) Ativan [...] Comments Blood Pressure 118/80 05/07/2024 10:52 AM CONCRETE BUILDINGS ASSEMBLER Pulse 74 05/07/2024 10:52 AM CONCRETE BUILDINGS ASSEMBLER Temperature 36.6 C (97.9 F) 05/07/2024 10:52 AM CONCRETE BUILDINGS ASSEMBLER Respiratory Rate 20 05/07/2024 10:52 AM CONCRETE BUILDINGS ASSEMBLER Oxygen Saturation 91% 05/07/2024 10:52 AM CONCRETE BUILDINGS ASSEMBLER Inhaled Oxygen Concentration - - Weight 78.6 kg (173 lb 4.5 oz) 05/02/2024 1:12 A M CONCRETE BUILDINGS ASSEMBLER Height 165.1 cm (5' 5 ) 04/29/2024 3:24 PM CONCRETE BUILDINGS ASSEMBLER Body Mass Index 28.84 04/29/2024 3:24 PM CONCRETE BUILDINGS ASSEMBLER Plan of Treatment Not on file Procedures Procedure Name Priority Date/Time Associated Diagnosis Comments EGFR Routine 05/05/2024 12:12 PM CONCRETE BUILDINGS ASSEMBLER CBC WITHOUT DIFFERENTIAL Routine 05/05/2024 12:12 PM CONCRETE BUILDINGS ASSEMBLER COMPREHENSIVE METABOLIC PANEL Routine 05/05/2024 12:12 PM CONCRETE BUILDINGS ASSEMBLER TRANSTHORACIC ECHO (TTE) COMPLETE W DOPPLER/CF WO CONTRAST Routine 05/04/2024 7:30 AM CONCRETE BUILDINGS ASSEMBLER US UPPER EXTREMITY RIGHT LIMITED IP Routine 05/03/2024 2:05 PM CONCRETE BUILDINGS ASSEMBLER BLOOD CULTURE Routine 05/03/2024 1:35 PM CONCRETE BUILDINGS ASSEMBLER BLOOD CULTURE Routine 05/03/2024 11:25 AM CONCRETE BUILDINGS ASSEMBLER TROPONIN T HIGH-SENSITIVITY 6-HOUR Timed 05/02/2024 11:01 AM CONCRETE BUILDINGS ASSEMBLER TROPONIN T HIGH-SENSITIVITY 2-HOUR Timed 05/02/2024 6:37 AM CONCRETE BUILDINGS ASSEMBLER TROPONIN T HIGH-SENSITIVITY SERIES (BASELINE, 2HR, 4HR, 6HR) Routine 05/02/2024 4:17 AM CONCRETE BUILDINGS ASSEMBLER ECG 12-LEAD Routine 05/02/2024 2:17 AM CONCRETE BUILDINGS ASSEMBLER US ABDOMEN LIMITED IP Routine 05/01/2024 3: 50 PM CONCRETE BUILDINGS ASSEMBLER APTT STAT 05/01/2024 2:50 PM CONCRETE BUILDINGS ASSEMBLER PROTIME-INR STAT 05/01/2024 2:50 PM CONCRETE BUILDINGS ASSEMBLER URINALYSIS, MICROSCOPIC ONLY Routine 05/01/2024 10:44 AM CONCRETE BUILDINGS ASSEMBLER URINALYSIS AND REFLEX TO MICROSCOPIC AND CULTURE Routine 05/01/2024 10:44 AM CONCRETE BUILDINGS ASSEMBLER RESPIRATORY PATHOGEN PANEL Routine 05/01/2024 10:04 AM CONCRETE BUILDINGS ASSEMBLER XR CHEST 1 VIEW IP Routine 05/01/2024 9:53 AM CONCRETE BUILDINGS ASSEMBLER EGFR STAT 05/01/2024 8:52 AM CONCRETE BUILDINGS ASSEMBLER LACTATE STAT 05/01/2024 8:52 AM CONCRETE BUILDINGS ASSEMBLER COMPREHENSIVE METABOLIC PANEL STAT 05/01/2024 8:52 AM CONCRETE BUILDINGS ASSEMBLER CBC WITHOUT DIFFERENTIAL STAT 05/01/2024 8:52 AM CONCRETE BUILDINGS ASSEMBLER BLOOD CULTURE Routine 04/30/2024 8:47 PM CONCRETE BUILDINGS ASSEMBLER BLOOD CULTURE Routine 04/30/2024 8:47 PM CONCRETE BUILDINGS ASSEMBLER MRI LUMBAR SPINE WO CONTRAST IP Routine 04/30/2024 2:26 PM CONCRETE BUILDINGS ASSEMBLER CT ABDOMEN PELVIS W CONTRAST IP Routine 04/29/2024 9:22 AM CONCRETE BUILDINGS ASSEMBLER EGFR Routine 04/29/2024 4:53 AM CONCRETE BUILDINGS ASSEMBLER DIFFERENTIAL AUTO Routine 04/29/2024 4:5 3 AM CONCRETE BUILDINGS ASSEMBLER PHOSPHORUS Routine 04/29/2024 4:53 AM CONCRETE BUILDINGS ASSEMBLER MAGNESIUM Routine 04/29/2024 4:53 AM CONCRETE BUILDINGS ASSEMBLER HEPATIC FUNCTION PANEL Routine 04/29/2024 4:53 AM CONCRETE BUILDINGS ASSEMBLER CBC WITH AUTO DIFFERENTIAL Routine 04/29/2024 4:53 AM CONCRETE BUILDINGS ASSEMBLER BASIC METABOLIC PANEL Routine 04/29/2024 4:53 AM CONCRETE BUILDINGS ASSEMBLER HEPATIC FUNCTION PANEL Add-On 04/28/2024 1:16 PM CONCRETE BUILDINGS ASSEMBLER LIPASE STAT 04/28/2024 1:16 PM CONCRETE BUILDINGS ASSEMBLER EGFR Routine 04/26/2024 8:41 AM CONCRETE BUILDINGS ASSEMBLER COMPREHENSIVE METABOLIC PANEL Routine 04/26/2024 8:41 AM CONCRETE BUILDINGS ASSEMBLER CBC WITHOUT DIFFERENTIAL Routine 04/26/2024 8:41 AM CONCRETE BUILDINGS ASSEMBLER APTT STAT 04/25/2024 8:53 AM CONCRETE BUILDINGS ASSEMBLER PROTIME-INR STAT 04/25/2024 8:53 AM CONCRETE BUILDINGS ASSEMBLER MAGNESIUM Add-On 04/25/2024 8:53 AM CONCRETE BUILDINGS ASSEMBLER EGFR STAT 04/25/2024 8:53 AM CONCRETE BUILDINGS ASSEMBLER DIFFERENTIAL AUTO STAT 04/25/2024 8:5 3 AM CONCRETE BUILDINGS ASSEMBLER ETHANOL STAT 04/25/2024 8:53 AM CONCRETE BUILDINGS ASSEMBLER COMPREHENSIVE METABOLIC PANEL STAT 04/25/2024 8:53 AM CONCRETE BUILDINGS ASSEMBLER CBC WITH AUTO DIFFERENTIAL STAT 04/25/2024 8:53 AM CONCRETE BUILDINGS ASSEMBLER EGFR STAT 04/25/2024 8:33 AM CONCRETE BUILDINGS ASSEMBLER DRUGS OF ABUSE SCREEN, URINE WITHOUT CONFIRMATION Routine 04/25/2024 8:33 AM CONCRETE BUILDINGS ASSEMBLER CBC WITHOUT DIFFERENTIAL STAT 04/25/2024 8:33 AM CONCRETE BUILDINGS ASSEMBLER COMPREHENSIVE METABOLIC PANEL STAT 04/25/2024 8:33 AM CONCRETE BUILDINGS ASSEMBLER from Last 3 Months Results * eGFR (05/05/2024 12:12 PM CONCRETE BUILDINGS ASSEMBLER) eGFR >90 >=60 mL/min/1. 73 m2 Comment: [...] reviewed 2021. Blood 05/05/2024 12:1 2 PM CONCRETE BUILDINGS ASSEMBLER 05/05/2024 12:26 PM CONCRETE BUILDINGS ASSEMBLER us Shara Serrano Suzy DO LAB BLOOD ORDERABLES F inal Result [facility] ([place]) 1 [facility] Department [place] [address] * (ABNORMAL) CBC without differential (05/05/2024 12:12 PM CONCRETE BUILDINGS ASSEMBLER) WBC 4.3 3.8 - 9.9 K/cumm Hgb [...] [facility] ([place]) Blood 05/05/2024 12:1 2 PM CONCRETE BUILDINGS ASSEMBLER 05/05/2024 12:26 PM CONCRETE BUILDINGS ASSEMBLER us Shara Yates DO LAB BLOOD ORDERABLES F inal Result [facility] ([place]) 1 [facility] Department [place] [address] * (ABNORMAL) Comprehensive metabolic panel (05/05/2024 12:12 PM CONCRETE BUILDINGS ASSEMBLER) Sodium 138 135 - 145 mmol/L Potassium, [...] [facility] ([place]) Blood 05/05/2024 12:1 2 PM CONCRETE BUILDINGS ASSEMBLER 05/05/2024 12:26 PM CONCRETE BUILDINGS ASSEMBLER us Shara Yates DO LAB BLOOD ORDERABLES F inal Result AMIE RENAE ([place]) [address] [place] [address] Department [place] [address] * TRANSTHORACIC ECHO (TTE) COMPLETE W DOPPLER/CF WO CONTRAST (05/04/2024 7:30 AM CONCRETE BUILDINGS ASSEMBLER) LV EF 60-65 % CONS SCIMAGE Anatomical Region Laterality Modality Ultrasound 05/04/2024 7:13 AM CONCRETE BUILDINGS ASSEMBLER Narrative 05/04/2024 4:47 PM CONCRETE BUILDINGS ASSEMBLER [address] [address] Echocardiogram Report Patient Name: LATRICE VALENCIA : 1975 Study Date: 05/04/2024 7:13:46 AM Gender: F Tech: Location: [id number] Ref Provider: SHARA YATES Height(Cm): 165 BSA: [...] By: Kwaku Blanco MD 05/04/2024 4:46:44 PM CONCRETE BUILDINGS ASSEMBLER Procedure Note Kwaku Blanco MD - 05/04/[address] [address] Echocardiogram Report Patient Name: LATRICE VALENCIA : 1975 Study Date: 05/04/2024 7:13:46 AM Gender: F Tech: Location: [address] Provider: SHARA YATES Height(Cm): 165 BSA: 1.74 [...] By: Kwaku Blanco MD 05/04/2024 4:46:44 PM CONCRETE BUILDINGS ASSEMBLER Shara Yates DO CV ECHO PROCEDURES Fin al Result * US Upper Extremity Right Limited (05/03/2024 2:05 PM CONCRETE BUILDINGS ASSEMBLER) Anatomical Region Laterality Modality Upper Extremities Right Ultrasound 05/03/2024 4:48 PM CONCRETE BUILDINGS ASSEMBLER Narrative 05/03/2024 4:51 PM CONCRETE BUILDINGS ASSEMBLER EXAM DESCRIPTION: US UPPER EXTREMITY RIGHT LIMITED REASON FOR STUDY: Patient with cellulitis at site of right forearm prior IV site. Firmness at this area, wanting to rule out an abscess. TECHNIQUE: A Dynamic assessment was performed of the soft tissues in the right elbow region by the stripper and opaquer apprentice, with selected grayscale and color Doppler images acquired and recorded in PACS. COMPARISON: None FINDINGS: Thrombus is seen within a superficial vein within the region of concern, with prominent peripheral vascularity. IMPRESSION: Superficial thrombophlebitis within the region of concern. THIS IS AN ELECTRONICALLY VERIFIED FINAL REPORT 05/03/2024 4:51 PM - Electronically signed by Boyd Cook M.D. KR: CHANG Report ID: [id number] Reading Location: [id number] Procedure Note Boyd Cook MD - 05/03/2024 EXAM DESCRIPTION: US UPPER EXTREMITY RIGHT LIMITED REASON FOR STUDY: Patient with cellulitis at site of right forearm priorIV site. Firmness at this area, wanting to rule out an abscess. TECHNIQUE: A Dynamic assessment was performed of the soft tissues in theright elbow region by the stripper and opaquer apprentice, with selected grayscale and color Doppler images acquired and recorded in PACS. COMPARISON: None FINDINGS: Thrombus is seen within a superficial vein within the region of concern,with prominent peripheral vascularity. IMPRESSION: Superficial thrombophlebitis within the region of concern. THIS IS AN ELECTRONICALLY VERIFIED FINAL REPORT 05/03/2024 4:51 PM - Electronically signed by Boyd Cook M.D. KR: CHANG Report ID: [id number] Reading Location: [id number] Shara Yates DO IMG US PROCEDURES Maeve l Result * Blood culture Blood (05/03/2024 1:35 PM CONCRETE BUILDINGS ASSEMBLER) Report Final Report: No growth Comment:Testing performed by : [facility], [address] [place]., [address] Blood 05/03/2024 1:35 PM CONCRETE BUILDINGS ASSEMBLER 05/03/2024 4:30 PM CONCRETE BUILDINGS ASSEMBLER Narrative AMIE RENAE ([place]) - 05/08/2024 7:00 AM CONCRETE BUILDINGS ASSEMBLER From a different site than #1. Collection->Peripheral [...] performance characteristics have been verified by the [facility] Microbiology Laboratory. For questions about this culture, contact the Microbiology Laboratory at [phone]. Interpretive data was last revised on 24. us Shara Yates DO LAB MICROBIOLOGY - GEN ERAL ORDERABLES Final Result AMIE RENAE ([place]) 1 [facility] [place] [address] * Blood culture Blood (05/03/2024 11:25 AM CONCRETE BUILDINGS ASSEMBLER) Report Final Report: No growth Comment:Testing performed by : [facility], 1 [facility], [place] [address] Blood 05/03/2024 11:2 5 AM CONCRETE BUILDINGS ASSEMBLER 05/03/2024 1:53 PM CONCRETE BUILDINGS ASSEMBLER Narrative AMIE OC ([place]) - 05/07/2024 4:00 PM CONCRETE BUILDINGS ASSEMBLER Collection->Peripheral 1. Blood cultures are incubated for [...] performance characteristics have been verified by the [facility] Microbiology Laboratory. For questions about this culture, contact the Microbiology Laboratory at [phone]. Interpretive data was last revised on 24. Shara Yates DO LAB MICROBIOLOGY - GEN ERAL ORDERABLES Final Result AMIE OC ([place]) 1 [facility] Department of Laboratories [place], [place] [id number] * Troponin T high-sensitivity 6-hour (05/02/2024 11:01 AM CONCRETE BUILDINGS ASSEMBLER) Trop T hs <6 <=14 ng/L Comment: Interpretive Data For further hscTnT resources including the diagnostic algorithm and an aid in interpretation, copy and paste this link: https://nrl.[employer].org/show/hsTrop Current Interpretive Data last revised 2020. Trop T hs delta 0 ng/L [facility] ([place]) Trop T hs interp Insignificant [facility] ([place]) Blood 05/02/2024 11:0 1 AM CONCRETE BUILDINGS ASSEMBLER 05/02/2024 11:11 AM CONCRETE BUILDINGS ASSEMBLER Guille Wall MD LAB BLOOD ORDERABLES Final Resu lt Performing Organization Address [facility] de Phone Number [facility] ([place]) 1 [facility] [place] [address] * Troponin T high-sensitivity 2-hour (05/02/2024 6:37 AM CONCRETE BUILDINGS ASSEMBLER) Trop T hs <6 <=14 ng/L Comment: Interpretive Data For further hscTnT resources including the diagnostic algorithm and an aid in interpretation, copy and paste this link: https://nrl.[employer].org/show/hsTrop Current Interpretive Data last revised 2020. Trop T hs delta 0 ng/L [facility] ([place]) Trop T hs interp Insignificant [facility] ([place]) Blood 05/02/2024 6:37 AM CONCRETE BUILDINGS ASSEMBLER 05/02/2024 7:06 AM CONCRETE BUILDINGS ASSEMBLER Guille Wall MD LAB BLOOD ORDERABLES Final Resu lt Performing Organization Address [facility] Co de Phone Number AMIE RENAE ([place]) 1 [facility] [place] [address] * Troponin T high-sensitivity series (baseline, 2hr, 4hr, 6hr) (05/02/2024 4:17 AM CONCRETE BUILDINGS ASSEMBLER) Trop T hs <6 <=14 ng/L Comment: Interpretive Data For further hscTnT resources including the diagnostic algorithm and an aid in interpretation, copy and paste this link: https://nrl.[employer].org/show/hsTrop Current Interpretive Data last revised 2020. Blood 05/02/2024 4:17 AM CONCRETE BUILDINGS ASSEMBLER 05/02/2024 4:40 AM CONCRETE BUILDINGS ASSEMBLER us Guille Wall MD LAB BLOOD ORDERABLES Final Resu lt [facility] [place] 1 [facility] Department [place] [address] * ECG 12 lead (05/02/2024 2:17 AM CONCRETE BUILDINGS ASSEMBLER) 05/02/2024 2:17 AM CONCRETE BUILDINGS ASSEMBLER Narrative [facility] - 05/02/2024 7:39 AM CONCRETE BUILDINGS ASSEMBLER Vent Rate: 73 bpm RR Interval: 816 msec DC Interval: 180 msec QRS Duration: 84 msec QT Interval: 397 msec QTC Interval: 423 msec P-R-T [place]: 40 - -21 - 31 degrees IMPRESSION: SINUS RHYTHM WITH SINUS ARRHYTHMIA BORDERLINE LEFT AXIS DEVIATION [QRS AXIS < -20] BORDERLINE ECG Electronically Signed By: Kwaku Blanco MD us Guille Wall MD ECG ORDERABLES Final Result Performing Organization Address [facility] de Phone Number [employer] [facility] * US Abdomen Limited (05/01/2024 3:50 PM CONCRETE BUILDINGS ASSEMBLER) Anatomical Region Laterality Modality Abdomen N/A Ultrasound 05/01/2024 5:06 PM CONCRETE BUILDINGS ASSEMBLER Narrative 05/01/2024 5:08 PM CONCRETE BUILDINGS ASSEMBLER EXAM DESCRIPTION: US ABDOMEN LIMITED REASON FOR [...] 5:08 PM - Electronically signed by Boyd Javi Shirley Caldwell M.D. KT: KT Report ID: [id number] Reading Location: [id number] Procedure Note Boyd Caldwell MD - 05/01/2024 [...] Boyd Caldwell M.D. KT: KT Report ID: [id number] Reading Location: [id number] Shara Yates DO IMG US PROCEDURES Maeve l Result * aPTT (05/01/2024 2:50 PM CONCRETE BUILDINGS ASSEMBLER) Pathologist [facility] aPTT 34 28 - 38 sec [facility]IE RE[facility] ([place]) Comment: Interpretive Data Heparin therapeutic range: 66.0 - 100.0 seconds. Range based on correlation with therapeutic heparin activity range of 0.3 - 0.7 Units/mL. Current interpretive data was last revised on 2023. Blood 05/01/2024 2:50 PM CONCRETE BUILDINGS ASSEMBLER 05/01/2024 3:05 PM CONCRETE BUILDINGS ASSEMBLER Shara Yates DO LAB BLOOD ORDERABLES F inal Result AMIE OC ([place]) 1 [facility] Department [place] [address] * (ABNORMAL) Protime-INR (05/01/2024 2:50 PM CONCRETE BUILDINGS ASSEMBLER) PT 14.9(H) 9.7 - 13.0 sec AMIE [facility] ([place]) INR 1.37(H) 0.90 - 1.20 AMIE [facility] ([place]) Comment: Interpretive data Oral anticoagulant therapeutic ranges: Venous thromboembolism prophylaxis or treatment: 2.0-3.0 CARDIOLOGY Standard range: 2.0-3.0 High-intensity range: 2.5-3.5 Refer to indication-specific guidelines for appropriate target ranges for prosthetic heart valve replacement. Current interpretive data was last revised on 2019. Blood 05/01/2024 2:50 PM CONCRETE BUILDINGS ASSEMBLER 05/01/2024 3:05 PM CONCRETE BUILDINGS ASSEMBLER Shara Yates DO LAB BLOOD ORDERABLES F inal Result AMIE RENAE ([place]) 1 [facility] Department [place] [address] * (ABNORMAL) Urinalysis reflex to microscopic and culture Urine (05/01/2024 10:44 AM CONCRETE BUILDINGS ASSEMBLER) Color, ur Yellow Yellow Clarity, ur Clear Clear C[facility]ER A ([place]) Specific gravity, ur 1.017 1.003 - 1.030 [facility] ([place]) pH, urine 6.0 [facility] ([place]) Comment: Interpretive Data U rine pH is affected by diet, medications, systemic acid-base disturbances, and renal tubular function. pH may affect urinary stone formation. For example, urine pH below 6.0 may help reduce the tendency for calcium phosphate stones and pH greater than 6.0 may reduce the tendency for uric acid stone formation. Source: [facility] Surve[facility]al Current Interpretive Data was last revised on [...] MH ([place]) Leukocyte esterase, ur 1+(A) Negative [facility] ([place]) UA reflex comment Reflex to microscopic UA will be performed. [facility] ([place]) Urine 05/01/2024 10:4 4 AM CONCRETE BUILDINGS ASSEMBLER 05/01/2024 10:50 AM CONCRETE BUILDINGS ASSEMBLER [facility] LAB MICROBIOLOGY - GEN ERAL ORDERABLES Final Result Performing Organization Address [facility] Co de Phone Number AMIE [facility] ([place]) 1 [facility] [place] [address] * (ABNORMAL) Urinalysis, microscopic only (05/01/2024 10:44 AM CONCRETE BUILDINGS ASSEMBLER) Pathologist [facility] WBC, ur 0-5 0 - 5 /HPF RBC, ur 0-2 0 - 2 /HPF AMIE [facility] ([place]) Epithelial cells, squamous, ur 11-20(A) 0 - 5 /HPF AMIE [facility] ([place]) Bacteria, ur Trace(A) [facility] ([place] Mucous, ur Present(A) [facility] A [facility] ([place]) Culture Reflex Comment Reflex conditions for urine culture (WBC >10) not met. [facility] ([place]) Urine 05/01/2024 10:4 4 AM CONCRETE BUILDINGS ASSEMBLER 05/01/2024 10:50 AM CONCRETE BUILDINGS ASSEMBLER Shara [facility] LAB URINE ORDERABLES F inal Result Performing Organization Address [facility] Co de Phone Number [facility] ([place]) 1 [facility] [place] [address] * Respiratory pathogen panel Nasopharyngeal (05/01/2024 10:04 AM CONCRETE BUILDINGS ASSEMBLER) Influenza A RNA Not Detected Not Detected [facility] Comment:Testing performed by : [address] [place] [address] Influenza B RNA Not Detected Not Detected [facility] ([place]) Comment:Testing performed by : [facility], [address] [place] [address], [place] [address] RSV RNA Not Detected Not Detected [facility] ([place]) Comment:Testing performed by : [facility], [address] [place] [address]., [id number] COVID-19 RNA Not Detected Not Detected [facility] ([place]) Comment:Testing performed by : [facility], [address] [place] [address], [id number] Coronavirus 229E RNA Not Detected Not Detected [facility] ([place]) Comment:Testing performed by : [facility], [address] [place] [address], [address] Coronavirus HKU1 RNA Not Detected Not Detected [facility] ([place]) Comment:Testing performed by : [facility], [address] [place] [address], [id number] Coronavirus NL63 RNA Not Detected Not Detected [facility] ([place]) Comment:Testing performed by : [facility], [address] [place] [address], [address] Coronavirus OC43 RNA Not Detected Not Detected [facility] ([place]) Comment:Testing performed by : [facility], [address] [place] [address], [address] Adenovirus DNA Not Detected Not Detected [facility] ([place]) Comment:Testing performed by : [facility], [address] [place] [address], [address] Metapneumovirus RNA Not Detected Not Detected [facility] ([place]) Comment:Testing performed by : [facility], [address] [place] [address], [id number] Rhinovirus/Enterov irus RNA Not Detected Not Detected [facility] ([place]) Comment:Testing performed by : [facility], [address] [place] [address], [id number] Parainfluenza 1 RNA Not Detected Not Detected [facility] ([place]) Comment:Testing performed by : [facility], [address] [place] [address], [id number] Parainfluenza 2 RNA Not Detected Not Detected [facility] ([place]) Comment:Testing performed by : [facility], [address] [place] [address], [address] Parainfluenza 3 RNA Not Detected Not Detected [facility] ([place]) Comment:Testing performed by : [facility], [address] [place] [address], [phone] Parainfluenza 4 RNA Not Detected Not Detected [facility] ([place]) Comment:Testing performed by : [facility], [address], [place]., [address] B. pertussis DNA Not Detected Not Detected [facility] ([place]) Comment:Testing performed by : [facility], [address] [place] [address]., [address] B. parapertussis DNA Not Detected Not Detected [facility] ([place]) Comment:Testing performed by : [facility], [address] [place] [address]., [id number] C. pneumoniae DNA Not Detected Not Detected [facility] ([place] Comment:Testing performed by : [facility], [address] [place] [address]., [address] M. pneumoniae DNA Not Detected Not Detected [facility] ([place]) Comment: Interpretive Data The [employer] Respiratory Panel (RP2.1) assay is a [...] assay has FDA clearance for testing of PERCUSSION TEACHER swabs. The performance characteristics of this assay have been determined by [facility]. Current interpretive data was last revised on 2020. Testing performed by: [facility], [address] [place] [address]., [phone] Nasopharyngeal 05/01/2024 10 :04 AM CONCRETE BUILDINGS ASSEMBLER 05/01/2024 11:23 AM CONCRETE BUILDINGS ASSEMBLER Narrative AMIE OC (ALLI) - 05/01/2024 12:24 PM CONCRETE BUILDINGS ASSEMBLER Is the Patient experiencing symptoms consistent with COVID?->Yes Surveillance testing for transplant patient?->No Shara Serrano Suzy DO LAB MICROBIOLOGY - GEN ERAL ORDERABLES Final Result JHONANAID OC (ALLI) 1 [facility] Department [place] [address] CH * XR CHEST 1 VIEW PORTABLE (05/01/2024 9:53 AM CONCRETE BUILDINGS ASSEMBLER) Anatomical Region Laterality Modality Body, Chest N/A Computed Radiogr aphy 05/01/2024 12:2 9 PM CONCRETE BUILDINGS ASSEMBLER Narrative 05/01/2024 12:30 PM CONCRETE BUILDINGS ASSEMBLER EXAM DESCRIPTION: XR CHEST 1 VIEW REASON [...] 12:30 PM - Electronically signed by Dong AdenD. RB: ADALID Report ID: [id number] Reading Location: [id number] Procedure Note Dong Thorne MD - 05/01/2024 [...] Dong Thorne M.D. RB: ADALID Report ID: [id number] Reading Location: [id number] Shara Yates DO IMG XR PROCEDURES Maeve l Result * Lactate (05/01/2024 8:52 AM CONCRETE BUILDINGS ASSEMBLER) Lactate 1.3 0.7 - 2.0 mmol/L Blood 05/01/2024 8:52 AM CONCRETE BUILDINGS ASSEMBLER 05/01/2024 9:01 AM CONCRETE BUILDINGS ASSEMBLER Shara Yates DO LAB BLOOD ORDERABLES F inal Result AMIE RENAE [place] 1 [facility] Department [place] [address] * eGFR (05/01/2024 8:52 AM CONCRETE BUILDINGS ASSEMBLER) eGFR >90 >=60 mL/min/1. 73 m2 Comment: [...] last reviewed 2021. Blood 05/01/2024 8:52 AM CONCRETE BUILDINGS ASSEMBLER 05/01/2024 9:40 AM CONCRETE BUILDINGS ASSEMBLER Shara Serrano [facility] DO LAB BLOOD ORDERABLES F inal Result AMIE [facility]H (ALLI) 1 [facility] Department [place] [address] * (ABNORMAL) CBC without differential (05/01/2024 8:52 AM CONCRETE BUILDINGS ASSEMBLER) WBC 6.4 3.8 - 9.9 K/cumm Hgb [...] [facility] (ALLI) Blood 05/01/2024 8:52 AM CONCRETE BUILDINGS ASSEMBLER 05/01/2024 9:40 AM CONCRETE BUILDINGS ASSEMBLER Shara Serrano Suzy DO LAB BLOOD ORDERABLES F inal Result AMIE [facility] (ALLI) 1 [facility] Department [place] [address] * (ABNORMAL) Comprehensive metabolic panel (05/01/2024 8:52 AM CONCRETE BUILDINGS ASSEMBLER) Sodium 132(L) 135 - 145 mmol/L Potassium, [...] [facility] (ALLI) Blood 05/01/2024 8:52 AM CONCRETE BUILDINGS ASSEMBLER 05/01/2024 9:40 AM CONCRETE BUILDINGS ASSEMBLER Shara Serrano [facility] DO LAB BLOOD ORDERABLES F inal Result AMIE RENAE (ALLI) 1 [facility] Department [place] [address] * (ABNORMAL) Blood culture Blood (04/30/2024 8:47 PM CONCRETE BUILDINGS ASSEMBLER) Direct Specimen Exam Molecular Analysis: Methicillin-suscep tible Staphylococcus aureus (MSSA) detected by the maxx ePlex BCID-GP panel. This test does not exclude the possibility of a mixed bacterial infection. Notification of: Methicillin-suscep tible Staphylococcus aureus (MSSA) called to and read back by: Latrice Wellington MLS ([phone]) on 05/02/2024 01:41:52 by: Fritz Kebede MLS Comment:Testing performed by : [facility], [address] [place] [address]., [address] Direct Specimen Exam Stain: Gram Positive Cocci in clusters Time to culture positivity (anaerobic media): 22.7 hours Notification of: Gram Positive Cocci in clusters called to and read back by: Latrice Wellington MLS ([phone]) on 05/01/2024 23:41:23 by: Fritz Kebede MLS Test result called to and read back by fabio stephenson on 05/02/2024 00:23:23 by latrice RENAE (ALLI) Comment:Testing performed by : [facility], [address] [place] [address]., [address] Report Final Report: Staphylococcus aureus Methicillin susceptible (MSSA) by penicillin binding protein 2a (PBP2a) testing. (.) AMIE RENAE (ALLI) Comment:Testing performed by : [facility], [address] [facility], [place]., [address] Organism STAPHYLOCOCCUS AUREUS AMIE RENAE (ALLI) Blood 04/30/2024 8:47 PM CONCRETE BUILDINGS ASSEMBLER 05/01/2024 Narrative AMIE RENAE (ALLI) - 05/06/2024 1:15 PM CONCRETE BUILDINGS ASSEMBLER From a different site than #1. Collection->Peripheral [...] performance characteristics have been verified by the [facility] Microbiology Laboratory. For questions about this culture, contact the Microbiology Laboratory at [phone]. Interpretive data was last revised on 24. [...] Wall MD LAB MICROBIOLOGY - GENERAL ORDE CHAVA Final Result Performing Organization Address City/[facility]/ZIP Co de Phone Number AMIE RENAE (ALLI) 1 [facility] [employer] [address] * Blood culture Blood (04/30/2024 8:47 PM CONCRETE BUILDINGS ASSEMBLER) Report Final Report: No growth Comment:Testing performed by : [facility], [address] [place]., [address] Blood 04/30/2024 8:47 PM CONCRETE BUILDINGS ASSEMBLER 05/01/2024 Narrative AMIE RENAE (ALLI) - 05/05/2024 7:00 AM CONCRETE BUILDINGS ASSEMBLER Collection->Peripheral 1. Blood cultures are incubated for [...] performance characteristics have been verified by the [facility] Microbiology Laboratory. For questions about this culture, contact the Microbiology Laboratory at [phone]. Interpretive data was last revised on 24. Guille Wall MD LAB MICROBIOLOGY - GENERAL ORDE RABSHELLY Final Result AMIE RENAE (ALLI) 1 [facility] [place] [address] * MRI Lumbar Spine WO Contrast (04/30/2024 2:26 PM CONCRETE BUILDINGS ASSEMBLER) Anatomical Region Laterality Modality Spine N/A Magnetic Resonan ce 04/30/2024 4:06 PM CONCRETE BUILDINGS ASSEMBLER Narrative 04/30/2024 4:12 PM CONCRETE BUILDINGS ASSEMBLER EXAM DESCRIPTION: MRI LUMBAR SPINE WO CONTRAST [...] Bo Travis M.D. DORIS: DORIS Report ID: [id number] Reading Location: [place] [address] Procedure Note Bo Travis MD - 04/30/2024 [...] Relevant portions of CT abdomen pelvis with exoedpws19/19/2025. FINDINGS: SEGMENTATION: No lumbosacral transitional anatomy. The [...] Bo Travis M.D. DORIS: DORIS Report ID: [id number] Reading Location: [id number] us Zee Khan MD IMG MRI PROCEDURES Final Result * CT Abdomen Pelvis W Contrast (04/29/2024 9:22 AM CONCRETE BUILDINGS ASSEMBLER) Anatomical Region Laterality Modality Body N/A Computed Tomogra phy 04/29/2024 12:5 1 PM CONCRETE BUILDINGS ASSEMBLER Narrative 04/29/2024 12:58 PM CONCRETE BUILDINGS ASSEMBLER EXAM DESCRIPTION: CT ABDOMEN PELVIS W CONTRAST [...] Alphonso Chaudhry M.D. DORIS: DORIS Report ID: [id number] Reading Location: [id number] Procedure Note Dave Chaudhry MD - 04/29/2024 [...] Alphonso Chaudhry M.D. DORIS: DORIS Report ID: [id number] Reading Location: [id number] Zee Khan MD IMG CT PROCEDURES Final Result * eGFR (04/29/2024 4:53 AM CONCRETE BUILDINGS ASSEMBLER) eGFR >90 >=60 mL/min/1. 73 m2 Comment: [...] last reviewed 2021. Blood 04/29/2024 4:53 AM CONCRETE BUILDINGS ASSEMBLER 04/29/2024 5:18 AM CONCRETE BUILDINGS ASSEMBLER Zee Khan MD LAB BLOOD ORDERABLES Fin al Result AMIE RENAE ([place]) 1 [facility] Department [place] [address] * Differential, auto (04/29/2024 4:53 AM CONCRETE BUILDINGS ASSEMBLER) Neutrophil abs 2.2 1.5 - 6.5 K/cumm Imm gran abs 0.0 0.0 - 0.1 K/cumm [facility] ([place]) Lymphocyte abs 1.4 0.8 - 3.3 K/cumm [facility] ([place]) Monocyte abs 0.6 0.2 - 0.8 K/cumm [facility] ([place]) Eosinophil abs 0.2 0.0 - 0.5 K/cumm [facility] ([place]) Basophil abs 0.0 0.0 - 0.1 K/cumm [facility] ([place]) Neutrophil pct 49.5 % [facility] R [facility] ([place]) Comment: Interpretive Data Percent cell count reference ranges are not reported, since discordance with absolute values may lead to misinterpretation of CBC data. Current Interpretive Data was last revised on 2017. Imm gran pct 0.2 % [facility] ([place]) Comment: Interpretive Data Percent cell count reference ranges are not reported, since discordance with absolute values may lead to misinterpretation of CBC data. Current Interpretive Data was last revised on 2017. Lymphocyte pct 32.7 % [facility] ([place]) Comment: Interpretive Data Percent cell count reference ranges are not reported, since discordance with absolute values may lead to misinterpretation of CBC data. Current Interpretive Data was last revised on 2017. Monocyte pct 13.2 % [facility] ([place]) Comment: Interpretive Data Percent cell count reference ranges are not reported, since discordance with absolute values may lead to misinterpretation of CBC data. Current Interpretive Data was last revised on 2017. Eosinophil pct 3.9 % [facility] ([place]) Comment: Interpretive Data Percent cell count reference [...] revised on 2017. Blood 04/29/2024 4:53 AM CONCRETE BUILDINGS ASSEMBLER 04/29/2024 5:17 AM CONCRETE BUILDINGS ASSEMBLER Zee Khan MD LAB BLOOD ORDERABLES Fin al Result JHONNER AMH ([place]) 1 [facility] Department [place] [address] * (ABNORMAL) CBC with auto differential (04/29/2024 4:53 AM CONCRETE BUILDINGS ASSEMBLER) WBC 4.4 3.8 - 9.9 K/cumm Hgb [...] [facility] ([place]) Blood 04/29/2024 4:53 AM CONCRETE BUILDINGS ASSEMBLER 04/29/2024 5:17 AM CONCRETE BUILDINGS ASSEMBLER Zee Khan MD LAB BLOOD ORDERABLES Fin al Result AMIE RENAE (ALLI) 1 [facility] [place] [address] * (ABNORMAL) Phosphorus (04/29/2024 4:53 AM CONCRETE BUILDINGS ASSEMBLER) Phosphorus, pl 4.6(H) 2.3 - 4.5 mg/dL Blood 04/29/2024 4:53 AM CONCRETE BUILDINGS ASSEMBLER 04/29/2024 5:18 AM CONCRETE BUILDINGS ASSEMBLER Zee Khan MD LAB BLOOD ORDERABLES Fin al Result Performing Organization Address City/[facility]/ZIP Co de Phone Number AMIE RENAE ([place]) 1 [facility] [place] [address] * Magnesium (04/29/2024 4:53 AM CONCRETE BUILDINGS ASSEMBLER) Pathologist [facility] Magnesium 1.6 1.4 - 2.5 mg/dL Blood 04/29/2024 4:53 AM CONCRETE BUILDINGS ASSEMBLER 04/29/2024 5:18 AM CONCRETE BUILDINGS ASSEMBLER Zee Khan MD LAB BLOOD ORDERABLES Fin al Result Performing Organization Address City/[facility] Co de Phone Number AMIE RENAE ([place]) 1 [facility] [place] [address] * Hepatic function panel (04/29/2024 4:53 AM CONCRETE BUILDINGS ASSEMBLER) Bilirubin, total 0.3 0.1 - 1.2 mg/dL [...] [facility] ([place]) Blood 04/29/2024 4:53 AM CONCRETE BUILDINGS ASSEMBLER 04/29/2024 5:18 AM CONCRETE BUILDINGS ASSEMBLER Zee Khan MD LAB BLOOD ORDERABLES Fin al Result AMIE RENAE ([place]) 1 [facility] [place] [address] * Basic metabolic panel (04/29/2024 4:53 AM CONCRETE BUILDINGS ASSEMBLER) Sodium 139 135 - 145 mmol/L Potassium, [...] [facility] ([place]) Blood 04/29/2024 4:53 AM CONCRETE BUILDINGS ASSEMBLER 04/29/2024 5:18 AM CONCRETE BUILDINGS ASSEMBLER Zee Khan MD LAB BLOOD ORDERABLES Fin al Result AMIE RENAE (ALLI) 1 [place] [address] * Lipase (04/28/2024 1:16 PM CONCRETE BUILDINGS ASSEMBLER) Pathologist [facility] Lipase 90 10 - 99 Units/L Blood 04/28/2024 1:16 PM CONCRETE BUILDINGS ASSEMBLER 04/28/2024 1:47 PM CONCRETE BUILDINGS ASSEMBLER Zee Khan MD LAB BLOOD ORDERABLES Fin al Result Performing Organization Address City/[facility]/ZIP Co de Phone Number AMIE RENAE ([place]) 1 [place] [address] * Hepatic function panel (04/28/2024 1:16 PM CONCRETE BUILDINGS ASSEMBLER) [facility] Bilirubin, total 0.3 0.1 - 1.2 mg/dL [...] Moderately Hemolyzed Specimen Blood 04/28/2024 1:16 PM CONCRETE BUILDINGS ASSEMBLER 04/28/2024 2:18 PM CONCRETE BUILDINGS ASSEMBLER Zee Khan MD LAB BLOOD ORDERABLES Fin al Result AMIE RENAE ([place]) 1 [facility] [place] [address] * eGFR (04/26/2024 8:41 AM CONCRETE BUILDINGS ASSEMBLER) Pathologist [facility] eGFR >90 >=60 mL/min/1. 73 m2 Comment: [...] last reviewed 2021. Blood 04/26/2024 8:41 AM CONCRETE BUILDINGS ASSEMBLER 04/26/2024 8:57 AM CONCRETE BUILDINGS ASSEMBLER us Maddie White MD LAB BLOOD ORDERABLES Maeve l Result [facility] 1 [facility] Department of Laboratories [place], [place] [address] * (ABNORMAL) CBC without differential (04/26/2024 8:41 AM CONCRETE BUILDINGS ASSEMBLER) WBC 6.4 3.8 - 9.9 K/cumm Hgb [...] NRBC abs 0.00 0.00 - 0.01 K/cumm [facility] Blood 04/26/2024 8:41 AM CONCRETE BUILDINGS ASSEMBLER 04/26/2024 8:57 AM CONCRETE BUILDINGS ASSEMBLER us Maddie White MD LAB BLOOD ORDERABLES Maeve l Result [facility] (ALLI) 1 [facility] Department [place] [address] * Comprehensive metabolic panel (04/26/2024 8:41 AM CONCRETE BUILDINGS ASSEMBLER) Sodium 138 135 - 145 mmol/L Potassium, [...] [facility] ([place]I) Blood 04/26/2024 8:41 AM CONCRETE BUILDINGS ASSEMBLER 04/26/2024 8:57 AM CONCRETE BUILDINGS ASSEMBLER us Maddie White MD LAB BLOOD ORDERABLES Maeve l Result AMIE [facility] ([place]) 1 [facility] Department [place] [address] * eGFR (04/25/2024 8:53 AM CONCRETE BUILDINGS ASSEMBLER) eGFR >90 >=60 mL/min/1. 73 m2 Comment: [...] last reviewed 2021. Blood 04/25/2024 8:53 AM CONCRETE BUILDINGS ASSEMBLER 04/25/2024 8:55 AM CONCRETE BUILDINGS ASSEMBLER us Chang Mckeon MD LAB BLOOD ORDERABLE S Final Result AMIE RENAE ([place]) 1 [facility] Department [place] [address] * (ABNORMAL) Differential, auto (04/25/2024 8:53 AM CONCRETE BUILDINGS ASSEMBLER) Neutrophil abs 6.3 1.5 - 6.5 K/cumm [...] revised on 2017. Blood 04/25/2024 8:53 AM CONCRETE BUILDINGS ASSEMBLER 04/25/2024 8:55 AM CONCRETE BUILDINGS ASSEMBLER us Chang Mckeon MD LAB BLOOD ORDERABLE S Final Result [facility] ([place]) 1 [facility] Department [place] [address] * (ABNORMAL) CBC with auto differential (04/25/2024 8:53 AM CONCRETE BUILDINGS ASSEMBLER) WBC 7.4 3.8 - 9.9 K/cumm Hgb [...] [facility] ([place]) Blood 04/25/2024 8:53 AM CONCRETE BUILDINGS ASSEMBLER 04/25/2024 8:55 AM CONCRETE BUILDINGS ASSEMBLER us Chang Mckeon MD LAB BLOOD ORDERABLE S Final Result [facility] ([place]) 1 [facility] [place] [address] * aPTT (04/25/2024 8:53 AM CONCRETE BUILDINGS ASSEMBLER) aPTT 29 28 - 38 sec AMIE RENAE ([place]) Comment: Interpretive Data Heparin therapeutic range: 66.0 - 100.0 seconds. Range based on correlation with therapeutic heparin activity range of 0.3 - 0.7 Units/mL. Current interpretive data was last revised on 2023. Blood 04/25/2024 8:53 AM CONCRETE BUILDINGS ASSEMBLER 04/25/2024 5:58 PM CONCRETE BUILDINGS ASSEMBLER Maddie White MD LAB BLOOD ORDERABLES Maeve l Result Performing Organization Address [facility] Co de Phone Number AMIE RENAE ([place]) 1 [place] [address] * Protime-INR (04/25/2024 8:53 AM CONCRETE BUILDINGS ASSEMBLER) PT 11.5 9.7 - 13.0 sec AMIE [facility] ([place]) INR 1.06 0.90 - 1.20 AMIE RENAE ([place]) Comment: Interpretive data Oral anticoagulant therapeutic ranges: Venous thromboembolism prophylaxis or treatment: 2.0-3.0 CARDIOLOGY Standard range: 2.0-3.0 High-intensity range: 2.5-3.5 Refer to indication-specific guidelines for appropriate target ranges for prosthetic heart valve replacement. Current interpretive data was last revised on 2019. Blood 04/25/2024 8:53 AM CONCRETE BUILDINGS ASSEMBLER 04/25/2024 5:58 PM CONCRETE BUILDINGS ASSEMBLER us Maddie White MD LAB BLOOD ORDERABLES Maeve l Result Performing Organization Address City/[facility] Co de Phone Number AMIE [place]oke[place]) 1 [place] [address] * Magnesium (04/25/2024 8:53 AM CONCRETE BUILDINGS ASSEMBLER) Magnesium 1.4 1.4 - 2.5 mg/dL Blood 04/25/2024 8:53 AM CONCRETE BUILDINGS ASSEMBLER 04/25/2024 9:56 AM CONCRETE BUILDINGS ASSEMBLER Chang Mckeon MD LAB BLOOD ORDERABLE S Final Result Performing Organization Address City/[facility]/ZIP Co de Phone Number AMIE RENAE ([place]) 1 [facility] [place] [address] * (ABNORMAL) Ethanol (04/25/2024 8:53 AM CONCRETE BUILDINGS ASSEMBLER) Pathologist [facility] Ethanol 59(H) <=10 mg/dL Comment: Interpretive Data Legal limit of intoxication > or = 80 mg/dL Levels > or = 400 mg/dL are potentially TOXIC. Current interpretive data was last revised on 2018. Blood 04/25/2024 8:53 AM CONCRETE BUILDINGS ASSEMBLER 04/25/2024 8:55 AM CONCRETE BUILDINGS ASSEMBLER Chang Mckeon MD LAB BLOOD ORDERABLE S Final Result Performing Organization Address City/[facility] Co de Phone Number AMIE RENAE ([place]) 1 [facility] [place] [address] * (ABNORMAL) Comprehensive metabolic panel (04/25/2024 8:53 AM CONCRETE BUILDINGS ASSEMBLER) Pathologist [facility] Sodium 134(L) 135 - 145 mmol/L Potassium, pl 3.5 3.3 - 4.9 mmol/L [facility] ([place]) Chloride 99 97 - 110 mmol/L [facility] ([place]) CO2 21(L) 22 - 32 mmol/L [facility] ([place]) Anion gap 14 2 - 15 mmol/L [facility] ([place]) BUN 13 6 - 25 mg/dL [facility] ([place]) Creatinine 0.48(L) 0.60 - 1.10 mg/dL [facility] ([place]) Glucose 141 70 - 199 mg/dL [facility] ([place]) Comment: Interpretive Data Fasting glucose [...] Hemolyzed S pecimen Blood 04/25/2024 8:53 AM CONCRETE BUILDINGS ASSEMBLER 04/25/2024 8:55 AM CONCRETE BUILDINGS ASSEMBLER us Chang Mckeon MD LAB BLOOD ORDERABLE S Final Result AMIE [facility] ([place]) 1 [facility] Department [place] [address] * eGFR (04/25/2024 8:33 AM CONCRETE BUILDINGS ASSEMBLER) eGFR >90 >=60 mL/min/1. 73 m2 Comment: [...] last reviewed 2021. Blood 04/25/2024 8:33 AM CONCRETE BUILDINGS ASSEMBLER 04/25/2024 8:41 AM CONCRETE BUILDINGS ASSEMBLER us Jesenia Mckeon MD LAB BLOOD ORDERABLES Final Re sult AMIE RENAE ([place]) 1 [facility] Department [place] [address] * (ABNORMAL) Drugs of Abuse Screen, Urine without Confirmation (04/25/2024 8:33 AM CONCRETE BUILDINGS ASSEMBLER) Amphetamine, ur Screen Positive, presumptive (A) CutOff [...] revised on 2017. Urine 04/25/2024 8:33 AM CONCRETE BUILDINGS ASSEMBLER 04/25/2024 8:43 AM CONCRETE BUILDINGS ASSEMBLER Narrative [facility]IE [facility] ([place]) - 04/25/2024 9:03 AM CONCRETE BUILDINGS ASSEMBLER Drug of Abuse screening is performed by immunoassay for medical purposes only. This is not to be used for Pain Management purposes. us Jesenia Mckeon MD LAB URINE ORDERABLES Final Re sult [facility]IE [facility] ([place]) 1 [facility] Department [place] [address] * (ABNORMAL) CBC without differential (04/25/2024 8:33 AM CONCRETE BUILDINGS ASSEMBLER) WBC 7.3 3.8 - 9.9 K/cumm Hgb [...] [facility] ([place]) Blood 04/25/2024 8:33 AM CONCRETE BUILDINGS ASSEMBLER 04/25/2024 8:41 AM CONCRETE BUILDINGS ASSEMBLER us Jesenia Mckeon MD LAB BLOOD ORDERABLES Final Re sult [facility]IE [facility] ([place]) 1 [facility] Department [place] [address] * (ABNORMAL) Comprehensive metabolic panel (04/25/2024 8:33 AM CONCRETE BUILDINGS ASSEMBLER) Sodium 135 135 - 145 mmol/L Potassium, [...] Hemolyzed S pecimen Blood 04/25/2024 8:33 AM CONCRETE BUILDINGS ASSEMBLER 04/25/2024 8:41 AM CONCRETE BUILDINGS ASSEMBLER us Jesenia Mckeon MD LAB BLOOD ORDERABLES Final Re sult [facility]IE [facility] ([place]) 1 [facility] Department [place] [address] from Last 3 Months Insurance [employer] [facility] Advance Directives For more information, please contact: [phone] * Full Code (Latest Code Status on File) Date Activated Date Inactivated Comments 04/25/2024 5:41 PM 05/07/2024 7:44 PM Care Teams Hull Inspector Relationship Specialty Start Date End Date Bladimir Crowder MD [address] [place] [id number] PCP - General Family Medicine 04/25/24
== END 2024-05-25 08:39 | disposition home or self-care (01) ==
PROVIDERS: PCP Family Medicine
DX: R10.9 Unspecified abdominal pain (principal); K74.60 Unspecified cirrhosis of liver
CPT/HCPCS: 74177; Q9967

== ENCOUNTER 2024-07-15 21:25 | Emergency (ER) | payer OTHER, SELFPAY ==
--- NOTE | ~2024-07-15 | XR_ITS ---
Left Knee Technique: AP, lateral, and oblique views were obtained. Clinical History: Pain Findings: No fracture or dislocation is seen. Osseous alignment is anatomic. Joint spaces are preserv ed without degenerative or erosive change. Soft tissues are unremarkable. No joint effusion is seen. Impression: Unremarkable left knee radiographs. Reviewed, dictated and finalized at location . Impression: Unremarkable left knee radiographs.
--- NOTE | ~2024-07-15 | XR_ITS ---
Right Knee Technique: AP, lateral, and oblique views were obtained. Clinical History: Pain Findings: No fracture or dislocation is seen. Osseous alignment is anatomic. Joint spaces are preserv ed without degenerative or erosive change. Soft tissues are unremarkable. No joint effusion is seen. Impression: Unremarkable right knee radiographs. Reviewed, dictated and finalized at location . Impression: Unremarkable right knee radiographs.
--- OUTSIDE RECORDS SUMMARY | 2024-07-15 21:27 | XMS_ITS ---
Author Organization [facility] Address [address] [place] [address] Care Team Providers Care Youth Services Librarian Name Role Phone Holli Keith Primary Care Provider [phone] Ana Zafar Unavailable [phone] REASON FOR VISIT discharged from [facility] Social History Sex Assigned At : Social History Observation Description Sex Assigned At Female Encounters Encounter Location Date Provider Diagnosis [facility] [address] [address] 06/14/2024 Ana Zafar Plan Of Treatment No Information Progress Notes * Latrice RITCHIEDOB:1975 ([age] yo F)Acc No.[id number]:06/14/2024 UNLOCKED PROGRESS NOTE Patient: Latrice DOWLING Provider: SANIA Sommers :1975 A ge:49 Y S ex:Female Date:06/14/2024 Phone: Address:[address] [place], [place] [id number] Pcp:Holli Keith Subjective: * Chief Complaints: * 1 . discharged from [facility]. * Medical History: Objective: * Vitals: Assessment: Plan: * Treatment: * * Electronic signature of Nohelia Zafar on 07/15/2024 at 09:27 PM CDT Sign off status: Pending * Provider: SANIA Sommers Date: 0 06/14/2024 Generated for Printi ng/Faxing/eTransmitting on: 0 07/15/2024 09:27 PM CDT
--- OUTSIDE RECORDS SUMMARY | 2024-07-15 21:28 | XMS_ITS | Referral Summary ---
Author Organization [facility] Address [address] [place] [address] Care Team Providers Care Research Executive Name Role Phone Bladimir Crowder MD Primary Care Provider [phone] Encounters Date Type Department Care Team Description 06/12/2024 Documentation [facility] Warm Hand Off Program [address] [place], [place] [phone] Bruno [place] 06/09/2024 11:27 AM [employer] - 06/12/2024 1:20 PM [employer] Hospital Encounter [facility] Medical Care [address] [place] [id number] Jesenia Mckeon MD Okonkwo, Kasiemobi Bernice, MD Richards, Davi Simmons Jr., MD Alcohol withdrawal syndrome without complication (HCC) (Primary Dx); Chronic pancreatitis, unspecified pancreatitis type (HCC) [K86.1] Discharge Disposition: Discharge to not defined facility 06/11/2024 Documentation [facility] Off [facility] [address] [place], [place] [phone] Latrice Dumont 06/10/2024 Documentation [facility] [address] [place], [place] [phone] Latrice Dumont 06/09/2024 [facility] Enrollment [facility] [address] [place], [place] [phone] Latrice Dumont 06/09/2024 8:20 AM [employer] Lab [address] [phone] 05/28/2024 [facility] Initial Eligibility [facility] [address] [place], [place] [phone] Bo Rojas 05/17/2024 [facility] Outreach [facility] [address] [place], [place] [phone] Hilario, Jana EValentín 05/08/2024 Telephone [facility] [address] [phone] Shara Yates DO 05/07/2024 Documentation [facility] Off Program [address] [place] [phone] Latrice Dumont 04/25/2024 10:50 AM [employer] - 05/07/2024 3:39 PM [employer] Hospital Encounter [facility] 1 [place] [address] Maddie White MD Sargsyan, MD Shantell Ba Chandni, MD Abegunde, MD Suzy Velazquez Matthew Austin, Alcohol withdrawal syndrome without complication (HCC) (Primary Dx); Unspecified mood disorder Discharge Disposition: Discharge to home or self care 05/05/2024 Documentation [facility] [address] [place], [place] [phone] Hilario, Jana E. 05/03/2024 Documentation [facility] [address] [place], [place] [phone] Hilario, Jana E. 05/02/2024 Documentation [facility] [address] [place], [place] [phone] Latrice Dumont 05/01/2024 Documentation [facility] Off [facility] [address] [place] [phone] Hilario, Jana E. 04/30/2024 Documentation [facility] Off [facility] [address] [place], [place] [phone] Latrice Dumont 04/29/2024 Documentation [facility] [address] [place] [phone] Latrice Dumont 04/27/2024 [facility] Enrollment [facility] [address] [place] [phone] Hilario, Jana EValentín 04/25/2024 Documentation [facility] [address] [place], [place] [phone] Cathy Hilarioanda Emmanuel 04/25/2024 Documentation [facility] Off Program [address] [place] [address] Jana Hilario 04/25/2024 8:30 AM [employer] Lab [address] [phone] 04/23/2024 Documentation [facility] [address] [place] [address] Latrice Dumont from Last 3 Months Allergies No known active allergies Medications gabapentin (NEURONTIN) 400 mg capsule Take 1 capsule (400 mg total) by mouth 3 (three) times a day 5 Active prazosin (MINIPRESS) 2 mg capsule Take 1 capsule (2 mg total) by mouth nightly 30 capsule 5 Active sertraline (ZOLOFT) 100 mg tablet Take 2 tablets (200 mg total) by mouth daily 60 tablet 5 Active traZODone (DESYREL) 300 mg tablet Take 1 tablet (300 mg total) by mouth nightly 30 tablet 5 Active QUEtiapine (SEROquel) 25 mg tablet Take 1 tablet (25 mg total) by mouth 3 (three) times a day 90 tablet [address] (PROTONIX) 40 mg EC tabletIndications: Treatment of Non-Bleeding Gastric Disorder Take 1 tablet (40 mg total) by mouth daily 30 tablet 5 Active pancrelipase (CREON) 6,000 units of lipase capsuleIndications :exocrine pancreatic insufficiency Take 1 capsule (6,000 units of lipase total) by mouth 3 (three) times a day 100 capsule 5 Active LORazepam (ATIVAN) 0.5 mg tabletIndications: anxiety Take 1 tablet (0.5 mg total) by mouth daily Active Active Problems Problem Noted Date Diagnosed Date Neutropenia 06/11/2024 Leukopenia 06/11/2024 Chronic pancreatitis 06/09/2024 Assessment & Plan (06/09/2024 3:43 PM [employer]): Chronic hx. Managed w/ Creon TID. Pt has non-specific abdominal pain in the setting of alcohol withdrawal. Amylase and lipase are normal. Acute pancreatitis is unlikely. Plan: - Continue Creon - Monitor IV fluids - If abdominal pain persists or worsens, consider CT abdomen Cirrhosis 06/09/2024 Assessment & Plan (06/09/2024 3:33 PM [employer]): Chronic hx. LFTs are normal. PT, PTT, and INR are normal. Currently stable Plan: - Monitor for symptoms Unspecified mood disorder 05/02/2024 Alcohol withdrawal syndrome without complication 04/25/2024 Assessment & Plan (06/09/2024 3:42 PM [employer]): 49 y/o female w/ alcohol use disorder, cirrhosis, chronic pancreatitis, TR, MDD here for medical stabilization. Reports alcohol intake of four 24 oz cans of beer daily with occasional shots of vodka. Last drink was the morning of 06/08/24. CIWA scored as 24 for nausea, ZENG, tremors, tactile hallucinations, anxiety, and agitation. VSS. CBC and CMP are normal. UDS positive for amphetamines, benzodiazepines, and cannabinoids. Ethanol <10. Pt reports marijuana use and prescribed ativan but not amphetamines. Plan: - Librium taper scheduled, adjust according to CIWA score - IVF w/ thiamine and folate - Pain control w/ tylenol and ibuprofen PRN - Hydroxyzine PRN for anxiety - Ativan PRN for breakthrough seizures - Zofran PRN for nausea Social History Tobacco Use Types Packs/Day Years [...] someone making you feel afraid or unsafe? Yes 06/09/2024 Comments No Sex and Gender Information Value Date Recorded Sex Assigned at Not on file Legal Sex Female 12:17 PM CDT Gender Identity Not on file Sexual Orientation Not on file Last Filed Vital Signs Vital Sign Reading Time Taken Comments Blood Pressure 128/74 06/12/2024 11:09 AM [employer] Pulse 67 06/12/2024 11:09 AM [employer] Temperature 36.4 C (97.5 F) 06/12/2024 11:09 AM [employer] Respiratory Rate 15 06/12/2024 11:09 AM [employer] Oxygen Saturation 97% 06/12/2024 11:09 AM [employer] Inhaled Oxygen Concentration - - Weight 69.4 kg (153 lb) 06/09/2024 11:47 AM [employer] Height 165.1 cm (5' 5 ) 06/09/2024 11:47 AM [employer] Body Mass Index 25.46 06/09/2024 11:47 AM [employer] Plan of Treatment Not on file Procedures Procedure Name Priority Date/Time Associated Diagnosis Comments EGFR Routine 06/12/2024 5:10 AM [employer] DIFFERENTIAL AUTO Routine 06/12/2024 5:1 0 AM [employer] CBC WITH AUTO DIFFERENTIAL Routine 06/12/2024 5:10 AM [employer] BASIC METABOLIC PANEL Routine 06/12/2024 5:10 AM [employer] CLINICAL PATHOLOGY REPORT Routine 06/11/2024 2:24 PM [employer] CT ABDOMEN PELVIS W CONTRAST ED 06/11/2024 1:27 PM [employer] ANTI-DOUBLE STRANDED DNA ANTIBODIES Routine 06/11/2024 11:59 AM [employer] TONY QUALITATIVE WITH REFLEX TO TONY QUANTITATIVE Routine 06/11/2024 11:59 AM [employer] FOLATE Routine 06/11/2024 11:59 AM [employer] VITAMIN B12 Routine 06/11/2024 11:59 AM [employer] HIV 1/2 ANTIBODY PLUS P24 ANTIGEN Routine 06/11/2024 11:59 AM [employer] HEPATITIS PANEL, ACUTE Routine 06/11/2024 11:59 AM [employer] SLIDE REVIEW - PATHOLOGIST Routine 06/11/2024 5:34 AM [employer] EGFR Routine 06/11/2024 5:34 AM [employer] DIFFERENTIAL AUTO Routine 06/11/2024 5:3 4 AM [employer] CBC WITH AUTO DIFFERENTIAL Routine 06/11/2024 5:34 AM [employer] BASIC METABOLIC PANEL Routine 06/11/2024 5:34 AM [employer] POCT GLUCOSE DEVICE Routine 06/11/2024 3 :01 AM [employer] EGFR STAT 06/10/2024 7:50 AM [employer] DIFFERENTIAL AUTO STAT 06/10/2024 7:5 0 AM [employer] BASIC METABOLIC PANEL STAT 06/10/2024 7:50 AM [employer] CBC WITH AUTO DIFFERENTIAL STAT 06/10/2024 7:50 AM [employer] ETHANOL STAT 06/09/2024 2:55 PM [employer] APTT STAT 06/09/2024 2:55 PM [employer] PROTIME-INR STAT 06/09/2024 2:55 PM [employer] LIPASE STAT 06/09/2024 2:55 PM [employer] AMYLASE STAT 06/09/2024 2:55 PM [employer] EGFR STAT 06/09/2024 8:33 AM [employer] WORK[employer] DRUGS OF ABUSE SCREEN, URINE WITHOUT CONFIRMATION STAT 06/09/2024 8:33 AM [employer] CBC WITHOUT DIFFERENTIAL STAT 06/09/2024 8:33 AM [employer] COMPREHENSIVE METABOLIC PANEL STAT 06/09/2024 8:33 AM [employer] EGFR Routine 05/05/2024 12:12 PM [employer] CBC WITHOUT DIFFERENTIAL Routine 05/05/2024 12:12 PM [employer] COMPREHENSIVE METABOLIC PANEL Routine 05/05/2024 12:12 PM [employer] TRANSTHORACIC ECHO (TTE) COMPLETE W DOPPLER/CF WO CONTRAST Routine 05/04/2024 7:30 AM [employer] US UPPER EXTREMITY RIGHT LIMITED IP Routine 05/03/2024 2:05 PM [employer] BLOOD CULTURE Routine 05/03/2024 1:35 PM [employer] BLOOD CULTURE Routine 05/03/2024 11:25 AM [employer] TROPONIN T HIGH-SENSITIVITY 6-HOUR Timed 05/02/2024 11:01 AM [employer] TROPONIN T HIGH-SENSITIVITY 2-HOUR Timed 05/02/2024 6:37 AM [employer] TROPONIN T HIGH-SENSITIVITY SERIES (BASELINE, 2HR, 4HR, 6HR) Routine 05/02/2024 4:17 AM [employer] ECG 12-LEAD Routine 05/02/2024 2:17 AM [employer] US ABDOMEN LIMITED IP Routine 05/01/2024 3: 50 PM [employer] APTT STAT 05/01/2024 2:50 PM [employer] PROTIME-INR STAT 05/01/2024 2:50 PM [employer] URINALYSIS, MICROSCOPIC ONLY Routine 05/01/2024 10:44 AM [employer] URINALYSIS AND REFLEX TO MICROSCOPIC AND CULTURE Routine 05/01/2024 10:44 AM [employer] RESPIRATORY PATHOGEN PANEL Routine 05/01/2024 10:04 AM [employer] XR CHEST 1 VIEW IP Routine 05/01/2024 9:53 AM [employer] EGFR STAT 05/01/2024 8:52 AM [employer] LACTATE STAT 05/01/2024 8:52 AM [employer] COMPREHENSIVE METABOLIC PANEL STAT 05/01/2024 8:52 AM [employer] CBC WITHOUT DIFFERENTIAL STAT 05/01/2024 8:52 AM [employer] BLOOD CULTURE Routine 04/30/2024 8:47 PM [employer] BLOOD CULTURE Routine 04/30/2024 8:47 PM [employer] MRI LUMBAR SPINE WO CONTRAST IP Routine 04/30/2024 2:26 PM [employer]IT[employer] CT ABDOMEN PELVIS W CONTRAST IP Routine 04/29/2024 9:22 AM [employer] EGFR Routine 04/29/2024 4:53 AM [employer] DIFFERENTIAL AUTO Routine 04/29/2024 4:5 3 AM [employer] PHOSPHORUS Routine 04/29/2024 4:53 AM [employer] MAGNESIUM Routine 04/29/2024 4:53 AM [employer] HEPATIC FUNCTION PANEL Routine 04/29/2024 4:53 AM [employer] CBC WITH AUTO DIFFERENTIAL Routine 04/29/2024 4:53 AM [employer] BASIC METABOLIC PANEL Routine 04/29/2024 4:53 AM [employer] HEPATIC FUNCTION PANEL Add-On 04/28/2024 1:16 PM [employer] LIPASE STAT 04/28/2024 1:16 PM [employer] EGFR Routine 04/26/2024 8:41 AM [employer]MENT COMPREHENSIVE METABOLIC PANEL Routine 04/26/2024 8:41 AM [employer] CBC WITHOUT DIFFERENTIAL Routine 04/26/2024 8:41 AM [employer] APTT STAT 04/25/2024 8:53 AM [employer] PROTIME-INR STAT 04/25/2024 8:53 AM [employer] MAGNESIUM Add-On 04/25/2024 8:53 AM [employer] EGFR STAT 04/25/2024 8:53 AM [employer] DIFFERENTIAL AUTO STAT 04/25/2024 8:5 3 AM [employer] WORK[employer]MENT ETHANOL STAT 04/25/2024 8:53 AM [employer]MENT COMPREHENSIVE METABOLIC PANEL STAT 04/25/2024 8:53 AM [employer] CBC WITH AUTO DIFFERENTIAL STAT 04/25/2024 8:53 AM [employer] EGFR STAT 04/25/2024 8:33 AM [employer] DRUGS OF ABUSE SCREEN, URINE WITHOUT CONFIRMATION Routine 04/25/2024 8:33 AM [employer] CBC WITHOUT DIFFERENTIAL STAT 04/25/2024 8:33 AM [employer] WORK[employer]MENT COMPREHENSIVE METABOLIC PANEL STAT 04/25/2024 8:33 AM [employer] from Last 3 Months Results * eGFR (06/12/2024 5:10 AM [employer]) eGFR >90 >=60 mL/min/1. 73 m2 Comment: [...] interpretive data was last reviewed 2021. Blood 06/12/2024 5:10 AM [employer] 06/12/2024 5:38 AM [employer] Dana Maradiaga MD LAB BLOOD ORDERABLE S Final Result [facility] Department of Laboratories [place], [place] [id number] * (ABNORMAL) Differential, auto (06/12/2024 5:10 AM [employer]) Neutrophil abs 1.4(L) 1.5 - 6.5 K/cumm Imm gran abs 0.0 0.0 - 0.1 K/cumm [facility] ([place]) Lymphocyte abs 1.0 0.8 - 3.3 K/cumm [facility]) Monocyte abs 0.3 0.2 - 0.8 K/cumm [facility] ([place]) Eosinophil abs 0.1 0.0 - 0.5 K/cumm [facility] ([place]) Basophil abs 0.0 0.0 - 0.1 K/cumm [facility] ([place]) Neutrophil pct 51.3 % [facility] ([place] Comment: Interpretive [...] was last revised on 2017. Lymphocyte pct 35.7 % [facility] ([place] Comment: Interpretive Data Percent cell count reference ranges are not reported, since discordance with absolute values may lead to misinterpretation of CBC data. Current Interpretive Data was last revised on 2017. Monocyte pct 10.4 % [facility] ([place] Comment: Interpretive Data Percent cell count reference ranges are not reported, since discordance with absolute values may lead to misinterpretation of CBC data. Current Interpretive Data was last revised on 2017. Eosinophil pct 1.8 % [facility] ([place] Comment: Interpretive Data Percent cell count reference ranges are not reported, since discordance with absolute values may lead to misinterpretation of CBC data. Current Interpretive Data was last revised on 2017. Basophil pct 0.4 % [facility] ([place] Comment: Interpretive Data Percent cell count reference ranges are not reported, since discordance with absolute values may lead to misinterpretation of CBC data. Current Interpretive Data was last revised on 2017. Blood 06/12/2024 5:10 AM [employer] 06/12/2024 5:38 AM [employer] Dana Maradiaga MD LAB BLOOD ORDERABLE S Final Result [facility] ([place] Department [place] [address] * (ABNORMAL) CBC with auto differential (06/12/2024 5:10 AM [employer]) WBC 2.8(L) 3.8 - 9.9 K/cumm Hgb 12.7 11.9 - 15.5 g/dL [facility] ([place]) Hct 37.3 35.6 - 45.5 % [facility] Plt 84(L) 150 - 400 K/cumm [facility] MPV 10.5 9.1 - 12.3 fL [facility] RBC 3.92 3.90 - 5.20 M/cumm [facility] MCV 95.2 81.3 - 96.4 fL [facility] MCH 32.4 27.1 - 33.3 pg [facility] MCHC 34.0 32.3 - 35.7 g/dL [facility] RDW CV 14.8 11.1 - 14.9 % [facility] RDW SD 51.8(H) 35.7 - 48.1 fL [facility] NRBC abs 0.00 0.00 - 0.01 K/cumm [facility] Blood 06/12/2024 5:10 AM [employer] 06/12/2024 5:38 AM [employer] Dana Maradiaga MD LAB BLOOD ORDERABLE S Final Result [facility] ([place] Department of Laboratories [place] [phone] * (ABNORMAL) Basic metabolic panel (06/12/2024 5:10 AM [employer]) Sodium 141 135 - 145 mmol/L Potassium, pl 3.7 3.3 - 4.9 mmol/L [facility] Chloride 107 97 - 110 mmol/L [facility] CO2 21(L) 22 - 32 mmol/L [facility] Anion gap 13 2 - 15 mmol/L [facility] BUN 15 6 - 25 mg/dL [facility] Creatinine 0.61 0.60 - 1.10 mg/dL [facility] Glucose 109 70 - 199 mg/dL [facility] ([place] Comment: Interpretive Data Fasting [...] 2022. Calcium 9.0 8.5 - 10.3 mg/dL [facility] Blood 06/12/2024 5:10 AM [employer] 06/12/2024 5:38 AM [employer] us Dana Maradiaga MD LAB BLOOD ORDERABLE S Final Result [facility] Department [place] [address] * Clinical pathology report (06/11/2024 2:24 PM [employer]) Miscellaneous 06/11/2024 2:2 4 PM [employer] 06/11/2024 2:24 PM [employer] Narrative 06/12/2024 8:53 AM [employer] EPIC results best viewed via link to PDF [facility] Department of Pathology [address] [place] [address] Final Report Note to Patients: This report may contain a detailed description of human tissue sent by a health care provider to the laboratory for pathologic evaluation. The content of this report is essential for diagnosis and may provide important critical findings. This information may be unfamiliar to patients to review without a medical professional present. It is advised that the patient review this report in the presence of a health care provider who can answer questions and explain the details. Patient Name: LATRICE VALENCIA Address: [address] [place] [address] Gender: F : 1975 (Age: 49) Service: Medical Location: [facility] Hospital #: [id number] Patient Type: [facility] Taken: 06/11/2024 Received: 06/11/2024 Accessioned: 06/11/2024 Physician(s): Dana Maradiaga MD Specimen(s) Received A: Blood Peripheral Blood Smear ReviewReported:06/12/2024 A peripheral blood smear is reviewed in conjunction with a CBC dated 06/11/24: WBC 2.59, RBC 3.83, Hgb 12.3, HCT 36.5, MCV 95.3, MCHC 33.7, PLT 80, RDW-CV 14.8. A peripheral blood manual differential on 200 cells shows: neutrophils 44%, lymphocytes 37%, monocytes 16%, eosinophils 3%. Red blood cells are normal in number and normocytic with minimal anisopoikilocytosis. There is no significant schistocytosis. Nucleated red blood cells are not evident, 0/100 WBCs. Platelets are decreased in number with normal size and granularity. Significant platelet clumping is not seen. White blood cells are decreased in number, though an appropriate mixture of neutrophils, lymphocytes, and monocytes is seen. Neutrophils show appropriate nuclear segmentation and granularity. Lymphocytes show a range of morphologies from small mature forms to occasional large granular forms. Monocytes show unremarkable morphology. Interpretation: Peripheral blood, manual smear review: - Leukopenia. - Thrombocytopenia. - See comment. COMMENT: The patient's leukopenia and thrombocytopenia are confirmed. There are no morphologic findings to strongly suggest a specific etiology. Recommend correlation with clinical findings and follow-up as clinically indicated. Vaughn Diop MDReport Electronically Reviewed and Signed Out By Vaughn Diop MD 06/12/2024 08:50:57 The performance characteristics of some immunohistochemical stains, fluorescence in-situ hybridization tests and immunophenotyping by flow cytometry cited in this report (if any) were determined by the Surgical Pathology Department at [facility] as part of an ongoing quality assurance supervisor program and in compliance with federally mandated regulations drawn from the Clinical Laboratory Improvement Act of 1988 (CLIA '88). Some of these tests rely on the use of analyte specific reagents and are subject to specific labeling requirements by the US Food and Drug Administration. Such diagnostic tests may only be performed in a facility that is certified by the Department of Health and Human Services as a high complexity laboratory under CLIA '88. The FDA has determined that such clearance or approval is not necessary. This test is used for clinical purposes. It should not be regarded as investigational or for research. Nevertheless, federal rules concerning the medical use of analyte specific reagents require that the following disclaimer be attached to the report: This test was developed and its performance characteristics determined by the Surgical Pathology Department [facility]. It has not been cleared or approved by the U. S. Food and Drug Administration. REPORT IMAGES AND SCANNED DOCUMENTS, IF INCLUDED, ONLY VIEWABLE IN PDF VERSION OF REPORTe o Dana Maradiaga MD LAB PATHOLOGY ORDER LOPEZ Final Result * CT Abdomen Pelvis W Contrast (06/11/2024 1:27 PM [employer]) Anatomical Region Laterality Modality Body N/A Computed Tomogra phy 06/11/2024 1:34 PM [employer] Narrative 06/11/2024 1:47 PM [employer] EXAM DESCRIPTION: CT ABDOMEN PELVIS W CONTRAST REASON FOR STUDY: Abdominal pain, acute, nonlocalized Increased abdominal pain today, hx of cirrhosis and pancreatitis TECHNIQUE: CT scan of the abdomen and pelvis performed with intravenous and without oral contrast using helical scanning technique with dynamic intravenous contrast injection. Reconstructed coronal and sagittal MPR images reviewed. All images stored on PACS. Automated exposure control was used as a dose optimization technique for this examination. CONTRAST TYPE/DOSE: 75mL of IOVERSOL 350 MG IODINE/ML INTRAVENOUS SYRINGE injected via intravenous COMPARISON: 04/29/2024 FINDINGS: LOWER CHEST: There is persistent linear consolidation within the left lower lobe, likely representing scarring. Mild right lower lobe subsegmental atelectasis is seen. A follow-up chest CT may be performed for better characterization. LIVER: The liver is normal in size. Surface nodularity is present as evidence for cirrhosis. There is indeterminate subtle hypoattenuation within the central right hemiliver at the dome (19). This is not well evaluated on CT. Follow-up MRI is recommended. GALLBLADDER: The gallbladder is partially distended with extensive cholelithiasis. No substantial pericholecystic fluid or stranding to suggest acute cholecystitis. BILE DUCTS: No gross biliary ductal dilatation. SPLEEN: The spleen is normal in size. PANCREAS: The pancreas is normal in size without significant peripancreatic stranding or main ductal dilatation. ADRENALS: Normal. KIDNEYS/URINARY TRACT: The kidneys in size. Prominent right collecting system is seen without overt hydronephrosis. Areas of right renal scarring are noted. There are calcifications seen within the pelvis adjacent to the ureters which are similar in position compared to the prior examination and likely represent phleboliths. The urinary bladder is partially distended with mild thickening, likely due to partial distention. GI: The colon is nondilated. Stool seen throughout. Evidence of colitis or obstruction. Partially obscured appendix is nondilated. The small bowel is nondilated without evidence of small-bowel obstruction. The visualized distal esophagus is decompressed. The stomach is partially distended. PERITONEUM: No free air. No ascites is seen. No mesenteric lymphadenopathy. Prominent periportal lymph nodes are seen. Recommend close fall. For reference is a 10 mm lymph node (52). RETROPERITONEUM: Subcentimeter retroperitoneal lymph nodes are noted. No inguinal lymphadenopathy. REPRODUCTIVE: The uterus is absent. VASCULATURE: No abdominal aortic aneurysm. MUSCULOSKELETAL: Subcentimeter sclerotic lesion within the right posterior iliac bone is stable. L3 lucent lesion is redemonstrated and previously characterized as hemangioma. OTHER: No other abnormality. IMPRESSION: 1. CT findings of cirrhosis. Indeterminate region of hypoattenuation within the hepatic dome. A follow-up liver protocol MRI is recommended to evaluate for a possible underlying mass lesion. 2. Cholelithiasis without CT evidence of acute cholecystitis. 3. Indeterminate urinary bladder wall thickening. Recommend correlation with urinalysis. THIS IS AN ELECTRONICALLY VERIFIED FINAL REPORT 06/11/2024 1:47 PM - Electronically signed by Eber Galaviz M.D. AG: MARIA LUISA Report ID: [id number] Reading Location: [id number] Procedure Note Eber Galaviz MD - 06/11/2024 EXAM DESCRIPTION: CT ABDOMEN PELVIS W CONTRAST REASON FOR STUDY: Abdominal pain, acute, nonlocalized Increased abdominal pain today, hx of cirrhosis and pancreatitis TECHNIQUE: CT scan of the abdomen and pelvis performed with intravenousand without oral contrast using helical scanning technique with dynamic intravenous contrast injection. Reconstructed coronal and sagittal MPRimages reviewed. All images stored on PACS. Automated exposure control was usedas a dose optimization technique for this examination. CONTRAST TYPE/DOSE: 75mL of IOVERSOL 350 MG IODINE/ML INTRAVENOUSSYRINGE injected via intravenous COMPARISON: 04/29/2024 FINDINGS: LOWER CHEST: There is persistent linear consolidation within the leftlower lobe, likely representing scarring. Mild right lower lobe subsegmental atelectasis is seen. A follow-up chest CT may be performed for better characterization. LIVER: The liver is normal in size. Surface nodularity is present as evidence for cirrhosis. There is indeterminate subtle hypoattenuationwithin the central right hemiliver at the dome (19). This is not well evaluatedon CT. Follow-up MRI is recommended. GALLBLADDER: The gallbladder is partially distended with extensive cholelithiasis. No substantial pericholecystic fluid or stranding tosuggest acute cholecystitis. BILE DUCTS: No gross biliary ductal dilatation. SPLEEN: The spleen is normal in size. PANCREAS: The pancreas is normal in size without significantperipancreatic stranding or main ductal dilatation. ADRENALS: Normal. KIDNEYS/URINARY TRACT: The kidneys in size. Prominent right collecting system is seen without overt hydronephrosis. Areas of right renalscarring are noted. There are calcifications seen within the pelvis adjacent tothe ureters which are similar in position compared to the prior examinationand likely represent phleboliths. The urinary bladder is partiallydistended with mild thickening, likely due to partial distention. GI: The colon is nondilated. Stool seen throughout. Evidence ofcolitis or obstruction. Partially obscured appendix is nondilated. The small bowelis nondilated without evidence of small-bowel obstruction. The visualizeddistal esophagus is decompressed. The stomach is partially distended. PERITONEUM: No free air. No ascites is seen. No mesenteric lymphadenopathy. Prominent periportal lymph nodes are seen. Recommendclose fall. For reference is a 10 mm lymph node (52). RETROPERITONEUM: Subcentimeter retroperitoneal lymph nodes are noted.No inguinal lymphadenopathy. REPRODUCTIVE: The uterus is absent. VASCULATURE: No abdominal aortic aneurysm. MUSCULOSKELETAL: Subcentimeter sclerotic lesion within the rightposterior iliac bone is stable. L3 lucent lesion is redemonstrated and previously characterized as hemangioma. OTHER: No other abnormality. IMPRESSION: 1. CT findings of cirrhosis. Indeterminate region of hypoattenuationwithin the hepatic dome. A follow-up liver protocol MRI is recommended toevaluate for a possible underlying mass lesion. 2. Cholelithiasis without CT evidence of acute cholecystitis. 3. Indeterminate urinary bladder wall thickening. Recommend correlation with urinalysis. THIS IS AN ELECTRONICALLY VERIFIED FINAL REPORT 06/11/2024 1:47 PM - Electronically signed by Eber Galaviz M.D. AG: AG Report ID: [id number] Reading Location: [place] [id number] Dana Maradiaga MD IMG CT PROCEDURES F inal Result * (ABNORMAL) TONY ab ql w/rflx to TONY qn (06/11/2024 11:59 AM [employer]) TONY Positive 1:320 Comment: Interpretive Data Normal range for TONY Qualitative Antibody = Negative. 1. TONY is performed using indirect immunofluorescence against HEp-2 cells 2. TONY titers are performed on all positive qualitative results. 3. A significantly positive TONY result is defined as a positive nuclear fluorescence at a titer of 1:80 or greater. 4. 15% of normal people above age 65 have significantly positive TONY results. 5% or less of normal people age 65 or under have significantly positive TONY results. Current interpretive data was last revised on 2019. Testing performed by: [facility], [address] [place] [address]., [id number] TONY, quant 1:320 titer AMIE SCHUMACHER H (ALLI) Comment:Testing performed by : [facility], [address] [place]., [address] TONY, interp Speckled(A) [facility] ([place]I) Comment:Testing performed by : [address] [id number] Blood 06/11/2024 11:5 9 AM [employer] 06/11/2024 2:52 PM [employer] Dana Maradiaga MD LAB BLOOD ORDERABLE S Final Result AMIE RENAE (ALLI) 1 [facility] [place] [address] * Anti-double stranded DNA abs (06/11/2024 11:59 AM [employer]) dsDNA Ab <1.0 <=4.0 IUnits/mL Comment: Interpretive Data Negative: < or = 4 IUnits/mL Indeterminate: 5 - 9 IUnits/mL Positive: > or = 10 IUnits/mL Current interpretive data was last revised on 2016. Testing performed by: [facility], [address] [place] [address], [id number] Blood 06/11/2024 11:5 9 AM [employer] 06/11/2024 2:52 PM [employer] Dana Maradiaga MD LAB BLOOD ORDERABLE S Final Result Performing Organization Address [facility] de Phone Number AMIE RENAE ([place]) 1 [facility] [place] [address] * HIV 1/2 Antibody plus p24 Antigen Blood (06/11/2024 11:59 AM [employer]) Pathologist [facility] [place] HIV 1/2 ab + p24 ag Nonreactive Nonreactive Comment: Nonreactive for HIV-1 antigen and HIV-1/HIV-2 antibodies. No laboratory evidence of HIV infection. If acute HIV infection is suspected, consider testing for HIV-1 RNA. Testing performed by: [facility], [address] [place] [address]., [id number] Blood 06/11/2024 11:5 9 AM [employer] 06/11/2024 1:56 PM [employer] Dana Maradiaga MD LAB MICROBIOLOGY - GENERAL ORDERABLES Final Result Performing Organization Address City/[facility] Co de Phone Number AMIE RENAE (ALLI) 1 [facility] [place] [address] * Hepatitis panel, acute Blood (06/11/2024 11:59 AM [employer]) Hep A IgM Nonreactive Nonreactive Comment: Interpretive Data: If Hep A IgM Ab is reported as Equivocal, a new sample should be drawn in two weeks for testing. Current interpretive data was last revised on 19. Testing performed by: [facility], [address] [place] [address]., [id number] Hep B core IgM Nonreactive Nonreactive Selin RENAE (ALLI) Comment: Interpretive Data If HepB Core IgM Ab is reported as Equivocal, a new sample should be drawn in two weeks for testing. Current interpretive data was last revised on 19. Testing performed by: [facility], [address] [place] [address]., [id number] Hep C Ab Nonreactive Nonreactive AMIE RENAE ([place]I) Comment: Interpretive Data Nonreactive: Antibodies to HCV not detected. Does NOT exclude the possibility of recent exposure to HCV. Equivocal: Equivocal for HCV antibodies. Supplemental molecular testing will be automatically performed to determine infection status in accordance with current CDC screening recommendations. Reactive: Positive for HCV antibodies. This may represent current or past HCV infection. Supplemental molecular testing will be automatically performed to determine current infection status in accordance with current CDC screening recommendations. Interpretive data was last revised on 2019. Testing performed by: [facility], [address] [place] [address]., [id number] HepBsAg Nonreactive Nonreactive AMIE RENAE (ALLI) Comment:Testing performed by : [address] [id number] Blood 06/11/2024 11:5 9 AM [employer] 06/11/2024 1:56 PM [employer] Dana Maradiaga MD LAB MICROBIOLOGY - GENERAL ORDERABLES Final Result AMIE RENAE ([place]) 1 [facility] Department [place] [address] * Folate (06/11/2024 11:59 AM [employer]) Folic acid >20.0 >=5.0 ng/mL Comment:Slightly Hemolyzed S pecimen. Results may be affected. Blood 06/11/2024 11:5 9 AM [employer] 06/11/2024 12:25 PM [employer] us Dana Maradiaga MD LAB BLOOD ORDERABLE S Final Result AMIE RENAE ([place]) 1 [facility] [place] [address] * Vitamin B12 (06/11/2024 11:59 AM [employer]) Vitamin B12 630 230 - 1,250 pg/mL Blood 06/11/2024 11:5 9 AM [employer] 06/11/2024 12:25 PM [employer] Dana Maradiaga MD LAB BLOOD ORDERABLE S Final Result Performing Organization Address [facility] Co de Phone Number AMIE RENAE ([place]) 1 [facility] [place] [address] * Slide review - pathologist (06/11/2024 5:34 AM [employer]) Slide review by Dr Vaughn Diop Comment: [facility] # [id number] Interpretive Data See Clinical Pathology Report under Media section in EPIC. Current Interpretive Data was last revised on 2018. Blood 06/11/2024 5:34 AM [employer] 06/11/2024 11:19 AM [employer] us Dana Maradiaga MD LAB BLOOD ORDERABLE S Final Result Performing Organization Address City/[facility]/ZIP Co de Phone Number AMIE RENAE ([place]) 1 [facility] [place] [address] * eGFR (06/11/2024 5:34 AM [employer]) eGFR >90 >=60 mL/min/1. 73 m2 Comment: [...] interpretive data was last reviewed 2021. Blood 06/11/2024 5:34 AM [employer] 06/11/2024 5:59 AM [employer] Dana Maradiaga MD LAB BLOOD ORDERABLE S Final Result [facility] ([place]) 1 [facility] Department of Laboratories [place], [place] [id number] * (ABNORMAL) Differential, auto (06/11/2024 5:34 AM [employer]) Neutrophil abs 1.0(L) 1.5 - 6.5 K/cumm Imm gran abs 0.0 0.0 - 0.1 K/cumm [facility] ([place]) Lymphocyte abs 1.1 0.8 - 3.3 K/cumm [facility] ([place]) Monocyte abs 0.4 0.2 - 0.8 K/cumm [facility] ([place]) Eosinophil abs 0.1 0.0 - 0.5 K/cumm [facility] ([place]) Basophil abs 0.0 0.0 - 0.1 K/cumm [facility] ([place]) Neutrophil pct 39.0 % [facility] R [facility] (ALLI) Comment: Interpretive Data Percent cell count reference ranges are not reported, since discordance with absolute values may lead to misinterpretation of CBC data. Current Interpretive Data was last revised on 2017. Imm gran pct 0.0 % [facility] ([place]) Comment: Interpretive Data Percent cell count reference ranges are not reported, since discordance with absolute values may lead to misinterpretation of CBC data. Current Interpretive Data was last revised on 2017. Lymphocyte pct 43.2 % [facility] ([place]) Comment: Interpretive Data Percent cell count reference ranges are not reported, since discordance with absolute values may lead to misinterpretation of CBC data. Current Interpretive Data was last revised on 2017. Monocyte pct 14.7 % [facility] ([place]) Comment: Interpretive Data Percent cell count reference ranges are not reported, since discordance with absolute values may lead to misinterpretation of CBC data. Current Interpretive Data was last revised on 2017. Eosinophil pct 2.3 % [facility] ([place]I) Comment: Interpretive Data Percent cell count reference ranges are not reported, since discordance with absolute values may lead to misinterpretation of CBC data. Current Interpretive Data was last revised on 2017. Basophil pct 0.8 % [facility] ([place]) Comment: Interpretive Data Percent cell count reference ranges are not reported, since discordance with absolute values may lead to misinterpretation of CBC data. Current Interpretive Data was last revised on 2017. Blood 06/11/2024 5:34 AM [employer] 06/11/2024 5:57 AM [employer] Dana Maradiaga MD LAB BLOOD ORDERABLE S Final Result [facility] ([place]) 1 [facility] Department [place] [address] * (ABNORMAL) CBC with auto differential (06/11/2024 5:34 AM [employer]) WBC 2.6(L) 3.8 - 9.9 K/cumm Hgb 12.3 11.9 - 15.5 g/dL [facility] ([place]) Hct 36.5 35.6 - 45.5 % [facility] ([place]) Plt 80(L) 150 - 400 K/cumm [facility] ([place]) MPV 10.6 9.1 - 12.3 fL [facility] ([place]) RBC 3.83(L) 3.90 - 5.20 M/cumm [facility] ([place]) MCV 95.3 81.3 - 96.4 fL [facility] ([place]) MCH 32.1 27.1 - 33.3 pg [facility] ([place]) MCHC 33.7 32.3 - 35.7 g/dL [facility] ([place]) RDW CV 14.8 11.1 - 14.9 % [facility] ([place]) RDW SD 52.1(H) 35.7 - 48.1 fL [facility] ([place]) NRBC abs 0.00 0.00 - 0.01 K/cumm [facility] ([place]) Blood 06/11/2024 5:34 AM [employer] 06/11/2024 5:57 AM [employer] Dana Maradiaga MD LAB BLOOD ORDERABLE S Final Result [facility] ([place]) 1 [facility] Department of Laboratories [place] [id number] * (ABNORMAL) Basic metabolic panel (06/11/2024 5:34 AM [employer]) Sodium 140 135 - 145 mmol/L Potassium, pl 4.1 3.3 - 4.9 mmol/L [facility] Chloride 108 97 - 110 mmol/L [facility] ([place]) CO2 23 22 - 32 mmol/L [facility] ([place]) Anion gap 9 2 - 15 mmol/L [facility] BUN 15 6 - 25 mg/dL [facility] Creatinine 0.54(L) 0.60 - 1.10 mg/dL [facility] ([place]) [...] Calcium 9.1 8.5 - 10.3 mg/dL AMIE RENAE ([place]) Blood 06/11/2024 5:34 AM [employer] 06/11/2024 5:59 AM [employer] Dana Maradiaga MD LAB BLOOD ORDERABLE S Final Result [facility] ([place]) 1 [facility] [employer] [place] [address] * POCT glucose (06/11/2024 3:01 AM [employer]) Glucose, POC 92 70 - 199 mg/dL Blood 06/11/2024 3:01 AM [employer] 06/11/2024 3:01 AM [employer] Dana Maradiaga MD LAB POCT ORDERABLES - DEVICE Final Result Performing Organization Address City/[facility]/ZIP Co de Phone Number AMIE [facility] ([place]) 1 [facility] [employer] [place] [address] * eGFR (06/10/2024 7:50 AM [employer]) eGFR >90 >=60 mL/min/1. 73 m2 Comment: [...] interpretive data was last reviewed 2021. Blood 06/10/2024 7:50 AM [employer] 06/10/2024 8:39 AM [employer] us Dana Maradiaga MD LAB BLOOD ORDERABLE S Final Result [facility] ([place]) 1 [facility] Department [place] [address] * Differential, auto (06/10/2024 7:50 AM [employer]) Neutrophil abs 1.5 1.5 - 6.5 K/cumm Imm gran abs 0.0 0.0 - 0.1 K/cumm [facility] ([place]) Lymphocyte abs 1.1 0.8 - 3.3 K/cumm [facility] ([place]) Monocyte abs 0.5 0.2 - 0.8 K/cumm [facility] ([place]) Eosinophil abs 0.1 0.0 - 0.5 K/cumm [facility] ([place]) Basophil abs 0.0 0.0 - 0.1 K/cumm [facility] ([place]) Neutrophil pct 47.5 % [facility] ([place]) Comment: Interpretive Data Percent cell count reference ranges are not reported, since discordance with absolute values may lead to misinterpretation of CBC data. Current Interpretive Data was last revised on 2017. Imm gran pct 0.3 % [facility] ([place]) Comment: Interpretive Data Percent cell count reference ranges are not reported, since discordance with absolute values may lead to misinterpretation of CBC data. Current Interpretive Data was last revised on 2017. Lymphocyte pct 33.4 % [facility] ([place]) Comment: Interpretive Data Percent cell count reference ranges are not reported, since discordance with absolute values may lead to misinterpretation of CBC data. Current Interpretive Data was last revised on 2017. Monocyte pct 16.4 % [facility] ([place]) Comment: Interpretive Data Percent cell count reference ranges are not reported, since discordance with absolute values may lead to misinterpretation of CBC data. Current Interpretive Data was last revised on 2017. Eosinophil pct 1.5 % [facility] ([place]I) Comment: Interpretive Data Percent cell count reference ranges are not reported, since discordance with absolute values may lead to misinterpretation of CBC data. Current Interpretive Data was last revised on 2017. Basophil pct 0.9 % [facility] ([place]) Comment: Interpretive Data Percent cell count reference ranges are not reported, since discordance with absolute values may lead to misinterpretation of CBC data. Current Interpretive Data was last revised on 2017. Blood 06/10/2024 7:50 AM [employer] 06/10/2024 8:39 AM [employer] Lesleendkeisha Maradiaga MD LAB BLOOD ORDERABLE S Final Result [facility] ([place]) 1 [facility] Department [place] [address] * (ABNORMAL) CBC with auto differential (06/10/2024 7:50 AM [employer]) WBC 3.2(L) 3.8 - 9.9 K/cumm Hgb 12.7 11.9 - 15.5 g/dL [facility] ([place]) Hct 37.7 35.6 - 45.5 % [facility] ([place]) Plt 96(L) 150 - 400 K/cumm [facility] ([place]) MPV 10.2 9.1 - 12.3 fL [facility] ([place]) RBC 4.04 3.90 - 5.20 M/cumm [facility] ([place]) MCV 93.3 81.3 - 96.4 fL [facility] ([place]) MCH 31.4 27.1 - 33.3 pg [facility] ([place]) MCHC 33.7 32.3 - 35.7 g/dL [facility] ([place]) RDW CV 14.5 11.1 - 14.9 % [facility] ([place]) RDW SD 50.5(H) 35.7 - 48.1 fL [facility] ([place]) NRBC abs 0.00 0.00 - 0.01 K/cumm [facility] ([place]) Blood 06/10/2024 7:50 AM [employer] 06/10/2024 8:39 AM [employer] us Dana Maradiaga MD LAB BLOOD ORDERABLE S Final Result [facility] ([place]) 1 [facility] Department [place] [address] * (ABNORMAL) Basic metabolic panel (06/10/2024 7:50 AM [employer]) Sodium 137 135 - 145 mmol/L Potassium, pl 3.5 3.3 - 4.9 mmol/L [facility] ([place]) Chloride 105 97 - 110 mmol/L [facility] ([place]) CO2 23 22 - 32 mmol/L [facility] ([place]) Anion gap 10 2 - 15 mmol/L [facility] ([place]) BUN 19 6 - 25 mg/dL [facility] ([place]) Creatinine 0.54(L) 0.60 - 1.10 mg/dL [facility] ([place]) Glucose 90 70 - 199 mg/dL [facility] ([facility] Comment: Interpretive Data [...] interpretive data was last revised 2022. Calcium 9.2 8.5 - 10.3 mg/dL [facility] ([place]) Blood 06/10/2024 7:50 AM [employer] 06/10/2024 8:39 AM [employer] Dana Maradiaga MD LAB BLOOD ORDERABLE S Final Result Performing Organization Address City/[facility]/ZIP Co de Phone Number [place]IE [place] 1 [facility] [place] [address] * aPTT (06/09/2024 2:55 PM [employer]) aPTT 32 28 - 38 sec AMIE RENAE ([place]) Comment: Interpretive Data Heparin therapeutic range: 66.0 - 100.0 seconds. Range based on correlation with therapeutic heparin activity range of 0.3 - 0.7 Units/mL. Current interpretive data was last revised on 2023. Blood 06/09/2024 2:55 PM [employer] 06/09/2024 3:01 PM [employer] Dana Maradiaga MD LAB BLOOD ORDERABLE S Final Result Performing Organization Address City/[facility]/ZIP Co de Phone Number AMIE RENAE ([place]) 1 [facility] [place] [address] * Protime-INR (06/09/2024 2:55 PM [employer]) PT 11.4 9.7 - 13.0 sec AMIE RENAE ([place]) INR 1.05 0.90 - 1.20 AMIE [facility] ([place]) Comment: Interpretive data Oral anticoagulant therapeutic ranges: Venous thromboembolism prophylaxis or treatment: 2.0-3.0 CARDIOLOGY Standard range: 2.0-3.0 High-intensity range: 2.5-3.5 Refer to indication-specific guidelines for appropriate target ranges for prosthetic heart valve replacement. Current interpretive data was last revised on 2019. Blood 06/09/2024 2:55 PM [employer] 06/09/2024 3:01 PM [employer] Dana Maradiaga MD LAB BLOOD ORDERABLE S Final Result AMIE RENAE ([place]) 1 [place] [address] * Lipase (06/09/2024 2:55 PM [employer]) Lipase 92 10 - 99 Units/L Blood 06/09/2024 2:55 PM [employer] 06/09/2024 3:01 PM [employer] Dana Maradiaga MD LAB BLOOD ORDERABLE S Final Result Performing Organization Address [facility] Co de Phone Number AMIE RENAE ([place]) 1 [facility] [place] [address] * Amylase (06/09/2024 2:55 PM [employer]) Amylase 58 30 - 99 Units/L Blood 06/09/2024 2:55 PM [employer] 06/09/2024 3:01 PM [employer] Dana Maradiaga MD LAB BLOOD ORDERABLE S Final Result Performing Organization Address [facility] de Phone Number AMIE RENAE ([place]) 1 [place] [address] * Ethanol (06/09/2024 2:55 PM [employer]) Ethanol <10 <=10 mg/dL Comment: Interpretive Data Legal limit of intoxication > or = 80 mg/dL Levels > or = 400 mg/dL are potentially TOXIC. Current interpretive data was last revised on 2018. Blood 06/09/2024 2:55 PM [employer] 06/09/2024 3:01 PM [employer] Dana Maradiaga MD LAB BLOOD ORDERABLE S Final Result AMIE RENAE ([place]) 1 [facility] Department [place] [address] * eGFR (06/09/2024 8:33 AM [employer]) eGFR >90 >=60 mL/min/1. 73 m2 Comment: [...] interpretive data was last reviewed 2021. Blood 06/09/2024 8:33 AM [employer] 06/09/2024 8:36 AM [employer] us Jesenia Mckeon MD LAB BLOOD ORDERABLES Final Re sult AMIE RENAE [place] 1 [facility] [place] [address] * (ABNORMAL) Drugs of Abuse Screen, Urine without Confirmation (06/09/2024 8:33 AM [employer]) Amphetamine, ur Screen Positive, presumptive (A) CutOff [...] Data was last reviewed 2022. Urine Creatinine 373 mg/dL JHON RENAE ([place]) Comment: Interpretive Data Urine Creatinine: < 10 mg/dL is extremely dilute = or > 10 but < 20 mg/dL is dilute = or > 20 mg/dL is normal Current Interpretive Data was last revised on 2017. Urine 06/09/2024 8:33 AM [employer] 06/09/2024 9:03 AM [employer] Narrative AMIE RENAE ([place]) - 06/09/2024 9:31 AM [employer] Drug of Abuse screening is performed by immunoassay for medical purposes only. This is not to be used for Pain Management purposes. us Jesenia Mckeon MD LAB URINE ORDERABLES Final Re sult AMIE BrookeALLI) 1 [facility] Department of Laboratories [place], [place] [id number] * (ABNORMAL) CBC without differential (06/09/2024 8:33 AM [employer]) WBC 5.2 3.8 - 9.9 K/cumm Hgb 14.2 11.9 - 15.5 g/dL [facility] ([place]) Hct 42.0 35.6 - 45.5 % [facility] ([place]) Plt 146(L) 150 - 400 K/cumm [facility] ([place]) MPV 9.5 9.1 - 12.3 fL [facility] ([place]) RBC 4.50 3.90 - 5.20 M/cumm [facility] ([place]) MCV 93.3 81.3 - 96.4 fL [facility] ([place]) MCH 31.6 27.1 - 33.3 pg [facility] ([place]) MCHC 33.8 32.3 - 35.7 g/dL [facility] ([place]) RDW CV 14.8 11.1 - 14.9 % [facility] ([place]) RDW SD 50.9(H) 35.7 - 48.1 fL [facility] ([place]) NRBC abs 0.00 0.00 - 0.01 K/cumm [facility] Blood 06/09/2024 8:33 AM [employer] 06/09/2024 8:36 AM [employer] us Jesenia Mckeon MD LAB BLOOD ORDERABLES Final Re sult [facility] ([place]) 1 [facility] Department [place] [address] * (ABNORMAL) Comprehensive metabolic panel (06/09/2024 8:33 AM [employer]) Sodium 140 135 - 145 mmol/L Potassium, pl 3.5 3.3 - 4.9 mmol/L [facility] ([place]) Chloride 105 97 - 110 mmol/L [facility] CO2 21(L) 22 - 32 mmol/L [facility] ([place]) Anion gap 14 2 - 15 mmol/L [facility] ([place]) BUN 13 6 - 25 mg/dL [facility] Creatinine 0.67 0.60 - 1.10 mg/dL [facility] ([place]) Glucose 127 70 - 199 mg/dL [facility] Comment: Interpretive Data [...] 1.2 mg/dL [facility] ([place]) Protein, pl 8.1 6.5 - 8.5 g/dL [facility] ([place]) Albumin 4.4 3.5 - 5.0 g/dL [facility] ([place]) Alk phos 96 40 - 130 Units/L [facility] ([place]) ALT 18 7 - 45 Units/L [facility] ([place]) AST 35 10 - 45 Units/L [facility] ([place]) Blood 06/09/2024 8:33 AM [employer] 06/09/2024 8:36 AM [employer] us Jesenia Mckeon MD LAB BLOOD ORDERABLES Final Re sult [facility] ([place]) 1 [facility] Department [place] [address] * eGFR (05/05/2024 12:12 PM [employer]) eGFR >90 >=60 mL/min/1. 73 m2 Comment: [...] reviewed 2021. Blood 05/05/2024 12:1 2 PM [employer] 05/05/2024 12:26 PM [employer] Shara Yates DO LAB BLOOD ORDERABLES F inal Result [facility] ([place]) 1 [facility] Department [place] [address] * (ABNORMAL) CBC without differential (05/05/2024 12:12 PM [employer]) WBC 4.3 3.8 - 9.9 K/cumm Hgb [...] [facility] ([place]) Blood 05/05/2024 12:1 2 PM [employer] 05/05/2024 12:26 PM [employer] Shara Serrano [facility] DO LAB BLOOD ORDERABLES F inal Result [facility]IE [facility] ([place]) 1 [facility] Department [place] [address] * (ABNORMAL) Comprehensive metabolic panel (05/05/2024 12:12 PM [employer]) Sodium 138 135 - 145 mmol/L Potassium, [...] [facility] ([place]) Blood 05/05/2024 12:1 2 PM [employer] 05/05/2024 12:26 PM [employer] us Shara Yates DO LAB BLOOD ORDERABLES F inal Result AMIE RENAE ([place] 1 [facility] Department [place] [address] * TRANSTHORACIC ECHO (TTE) COMPLETE W DOPPLER/CF WO CONTRAST (05/04/2024 7:30 AM [employer]) LV EF 60-65 % CONS SCIMAGE Anatomical Region Laterality Modality Ultrasound 05/04/2024 7:13 AM [employer] Narrative 05/04/2024 4:47 PM [employer] [address] [address] Echocardiogram Report Patient Name: LATRICE VALENCIA : 1975 Study Date: 05/04/2024 7:13:46 AM Gender: F Tech: Location: [id number] Ref Provider: SHARA YATES Height(Cm): 165 BSA: [...] By: Kwaku Blanco MD 05/04/2024 4:46:44 PM [employer] Procedure Note Kwaku Blanco MD - 05/04/[address] [address] Echocardiogram Report Patient Name: LATRICE VALENCIA : 1975 Study Date: 05/04/2024 7:13:46 AM Gender: F Tech: Location: [id number] Ref Provider: SHARA YATES Height(Cm): 165 BSA: [...] By: Kwaku Blanco MD 05/04/2024 4:46:44 PM [employer] us Shara Serrano [facility] DO CV ECHO PROCEDURES Fin al Result * US Upper Extremity Right Limited (05/03/2024 2:05 PM [employer]) Anatomical Region Laterality Modality Upper Extremities Right Ultrasound 05/03/2024 4:48 PM [employer] Narrative 05/03/2024 4:51 PM [employer] EXAM DESCRIPTION: US UPPER EXTREMITY RIGHT LIMITED REASON FOR STUDY: Patient with cellulitis at site of right forearm prior IV site. Firmness at this area, wanting to rule out an abscess. TECHNIQUE: A Dynamic assessment was performed of the soft tissues in the right elbow region by the [facility], with selected grayscale and color Doppler images acquired and recorded in PACS. COMPARISON: None FINDINGS: Thrombus is seen within a superficial vein within the region of concern, with prominent peripheral vascularity. IMPRESSION: Superficial thrombophlebitis within the region of concern. THIS IS AN ELECTRONICALLY VERIFIED FINAL REPORT 05/03/2024 4:51 PM - Electronically signed by Boyd Cook M.D. KR: CHANG Report ID: [id number] Reading Location: [id number] Procedure Note Boyd Cook MD - 05/03/2024 EXAM DESCRIPTION: US UPPER EXTREMITY RIGHT LIMITED REASON FOR STUDY: Patient with cellulitis at site of right forearm priorIV site. Firmness at this area, wanting to rule out an abscess. TECHNIQUE: A Dynamic assessment was performed of the soft tissues in theright elbow region by the [facility], with selected grayscale and color Doppler images acquired and recorded in PACS. COMPARISON: None FINDINGS: Thrombus is seen within a superficial vein within the region of concern,with prominent peripheral vascularity. IMPRESSION: Superficial thrombophlebitis within the region of concern. THIS IS AN ELECTRONICALLY VERIFIED FINAL REPORT 05/03/2024 4:51 PM - Electronically signed by Boyd DOWNING: CHANG Report ID: [id number] Reading Location: [id number] Shara Yates DO IMG US PROCEDURES Maeve l Result * Blood culture Blood (05/03/2024 1:35 PM [employer]) Report Final Report: No growth Comment:Testing performed by : [facility], [address] [place] [address] Blood 05/03/2024 1:35 PM [employer] 05/03/2024 4:30 PM [employer]MENT Narrative AMIE RENAE ([place]) - 05/08/2024 7:00 AM [employer] WORK[employer] From a different site than #1. Collection->Peripheral [...] performance characteristics have been verified by the [facility]. For questions about this culture, contact the Microbiology Laboratory at [phone]. Interpretive data was last revised on 24. us Shara Yates DO LAB MICROBIOLOGY - GEN ERAL ORDERABLES Final Result AMIE OC ([place]) 1 [facility] Department [place] [address] * Blood culture Blood (05/03/2024 11:25 AM [employer]) Report Final Report: No growth Comment:Testing performed by : [facility], 1 [facility], [place]., [address] Blood 05/03/2024 11:2 5 AM [employer]MENT 05/03/2024 1:53 PM [employer] WORK[employer]MENT Narrative AMIE RENAE ([place]) - 05/07/2024 4:00 PM [employer] WORK[employer] Collection->Peripheral 1. Blood cultures are incubated for [...] performance characteristics have been verified by the [facility]. For questions about this culture, contact the Microbiology Laboratory at [phone]. Interpretive data was last revised on 24. Shara Yates DO LAB MICROBIOLOGY - GEN ERAL ORDERABLES Final Result AMIE RENAE ([place]) 1 [facility] Department [place] [address] * Troponin T high-sensitivity 6-hour (05/02/2024 11:01 AM [employer]) Trop T hs <6 <=14 ng/L Comment: Interpretive Data For further hscTnT resources including the diagnostic algorithm and an aid in interpretation, copy and paste this link: https://nrl.testcatalog.org/show/hsTrop Current Interpretive Data last revised 2020. Trop T hs delta 0 ng/L [facility] ([place]) Trop T hs interp Insignificant [facility] ([place]) Blood 05/02/2024 11:0 1 AM [employer] 05/02/2024 11:11 AM [employer] WORK[employer]MENT Guille Wall MD LAB BLOOD ORDERABLES Final Resu lt Performing Organization Address City/[facility] Co de Phone Number AMIE [facility] ([place]) 1 [facility] [place] [address] * Troponin T high-sensitivity 2-hour (05/02/2024 6:37 AM [employer]) Trop T hs <6 <=14 ng/L Comment: Interpretive Data For further hscTnT resources including the diagnostic algorithm and an aid in interpretation, copy and paste this link: https://nrl.[employer].org/show/hsTrop Current Interpretive Data last revised 2020. Trop T hs delta 0 ng/L [facility] ([place]) Trop T hs interp Insignificant [facility] ([place]) Blood 05/02/2024 6:37 AM [employer]MENT 05/02/2024 7:06 AM [employer] WORK[employer]MENT Guille Wall MD LAB BLOOD ORDERABLES Final Resu lt Performing Organization Address City/[facility] Co de Phone Number AMIE RENAE ([place]) 1 [facility] [place] [address] * Troponin T high-sensitivity series (baseline, 2hr, 4hr, 6hr) (05/02/2024 4:17 AM [employer]) Trop T hs <6 <=14 ng/L Comment: Interpretive Data For further hscTnT resources including the diagnostic algorithm and an aid in interpretation, copy and paste this link: https://nrl.[employer].org/show/hsTrop Current Interpretive Data last revised 2020. Blood 05/02/2024 4:17 AM [employer] 05/02/2024 4:40 AM [employer] us Guille Wall MD LAB BLOOD ORDERABLES Final Resu lt AMIE RENAE ([place]) 1 [facility] Department [place] [address] * ECG 12 lead (05/02/2024 2:17 AM [employer]MENT) 05/02/2024 2:17 AM [employer]MENT Narrative [facility] - 05/02/2024 7:39 AM [employer]MENT Vent Rate: 73 bpm RR Interval: 816 msec WA Interval: 180 msec QRS Duration: 84 msec QT Interval: 397 msec QTC Interval: 423 msec P-R-T [place]: 40 - -21 - 31 degrees IMPRESSION: SINUS RHYTHM WITH SINUS ARRHYTHMIA BORDERLINE LEFT AXIS DEVIATION [QRS AXIS < -20] BORDERLINE ECG Electronically Signed By: Kwaku Blanco MD us Guille Wall MD ECG ORDERABLES Final Result Performing Organization Address [facility] Co de Phone Number [facility] * US Abdomen Limited (05/01/2024 3:50 PM [employer]) Anatomical Region Laterality Modality Abdomen N/A Ultrasound 05/01/2024 5:06 PM [employer] Narrative 05/01/2024 5:08 PM [employer] EXAM DESCRIPTION: US ABDOMEN LIMITED REASON FOR [...] Boyd Caldwell M.D. KT: KARINA Report ID: [id number] Reading Location: [id number] Procedure Note Boyd Caldwell MD - 05/01/2024 [...] Boyd Caldwell M.D. KT: KARINA Report ID: [id number] Reading Location: [id number] Shara Yates DO IMG US PROCEDURES Maeve l Result * aPTT (05/01/2024 2:50 PM [employer]) aPTT 34 28 - 38 sec AMIE JURADO) Comment: Interpretive Data Heparin therapeutic range: 66.0 - 100.0 seconds. Range based on correlation with therapeutic heparin activity range of 0.3 - 0.7 Units/mL. Current interpretive data was last revised on 2023. Blood 05/01/2024 2:50 PM [employer] 05/01/2024 3:05 PM [employer]MENT Shara Yates DO LAB BLOOD ORDERABLES F inal Result AMIE JURADO) 1 [facility] Department [place] [address] * (ABNORMAL) Protime-INR (05/01/2024 2:50 PM [employer]) PT 14.9(H) 9.7 - 13.0 sec AMIE RENAE ([place]) INR 1.37(H) 0.90 - 1.20 [facility] ([place]) Comment: Interpretive data Oral anticoagulant therapeutic ranges: Venous thromboembolism prophylaxis or treatment: 2.0-3.0 CARDIOLOGY Standard range: 2.0-3.0 High-intensity range: 2.5-3.5 Refer to indication-specific guidelines for appropriate target ranges for prosthetic heart valve replacement. Current interpretive data was last revised on 2019. Blood 05/01/2024 2:50 PM [employer]MENT 05/01/2024 3:05 PM [employer]MENT us Shara Serrano [facility] DO LAB BLOOD ORDERABLES F inal Result AMIE RENAE ([place] 1 [facility] Department [place] [address] * (ABNORMAL) Urinalysis reflex to microscopic and culture Urine (05/01/2024 10:44 AM [employer]) Color, ur Yellow Yellow Clarity, ur Clear Clear C[facility]ER A ([place]) Specific gravity, ur 1.017 1.003 - 1.030 [facility] ([place]) pH, urine 6.0 [facility] ([place]) Comment: Interpretive Data U rine pH is affected by diet, medications, systemic acid-base disturbances, and renal tubular function. pH may affect urinary stone formation. For example, urine pH below 6.0 may help reduce the tendency for calcium phosphate stones and pH greater than 6.0 may reduce the tendency for uric acid stone formation. Source: [facility] Current Interpretive Data was last revised on 2017 Protein, ur ql Negative Negative [facility] ([place]) Glucose, ur ql Negative Negative [facility] ([place]) Ketones, ur Negative Negative [facility] A ([place]) Bilirubin, ur Negative Negative [facility] ([place]) Blood, ur Negative Negative [facility] ([place]) Urobilinogen, ur <2.0 <2.0 mg/dL [facility] ([place]) Nitrite, ur Negative Negative [facility] ([place]) Leukocyte esterase, ur 1+(A) Negative [facility] ([place]) UA reflex comment Reflex to microscopic UA will be performed. [facility] ([place]) Urine 05/01/2024 10:4 4 AM [employer]MENT 05/01/2024 10:50 AM [employer] WORK[employer]MENT Shara Yates LAB MICROBIOLOGY - GEN ERAL ORDERABLES Final Result Performing Organization Address [facility] Co de Phone Number AMIE [facility] ([place]) 1 [facility] [place] [address] * (ABNORMAL) Urinalysis, microscopic only (05/01/2024 10:44 AM [employer]) WBC, ur 0-5 0 - 5 /HPF RBC, ur 0-2 0 - 2 /HPF AMIE [facility] ([place]) Epithelial cells, squamous, ur 11-20(A) 0 - 5 /HPF AMIE [facility] ([place]) Bacteria, ur Trace(A) AMIE [facility] ([place]) Mucous, ur Present(A) CERNER A ([place]) Culture Reflex Comment Reflex conditions for urine culture (WBC >10) not met. AMIE [facility] ([place]) Urine 05/01/2024 10:4 4 AM [employer]MENT 05/01/2024 10:50 AM [employer] WORKER [employer] EQUIPMENT Shara Yates LAB URINE ORDERABLES F inal Result Performing Organization Address [facility] Co de Phone Number AMIE [facility] ([place]) 1 [facility] [place] [address] * Respiratory pathogen panel Nasopharyngeal (05/01/2024 10:04 AM [employer]MENT) Influenza A RNA Not Detected Not Detected CH Comment:Testing performed by : [facility], [address] [place] [address], [place]., [address] Influenza B RNA Not Detected Not Detected [facility] ([facility]) Comment:Testing performed by : [facility], [address] [place] [address], [place]., [address] RSV RNA Not Detected Not Detected [facility] (ALLI) Comment:Testing performed by : [facility], [address] [place] [address], [place]., [address] COVID-19 RNA Not Detected Not Detected [facility] ([place]) Comment:Testing performed by : [facility], [address] [place] [address]., [address] Coronavirus 229E RNA Not Detected Not Detected [facility] ([place]) Comment:Testing performed by : [facility], [address] [place] [address]., [address] Coronavirus HKU1 RNA Not Detected Not Detected [facility] ([place]) Comment:Testing performed by : [facility], [address] [place] [address]., [address] Coronavirus NL63 RNA Not Detected Not Detected [facility] ([place]) Comment:Testing performed by : [facility], [address] [place] [address], [address] Coronavirus OC43 RNA Not Detected Not Detected [facility] ([place]) Comment:Testing performed by : [facility], [address] [place] [address], [address] Adenovirus DNA Not Detected Not Detected [facility] ([place]) Comment:Testing performed by : [facility], [address] [place] [address], [address] Metapneumovirus RNA Not Detected Not Detected [facility] ([place]) Comment:Testing performed by : [facility], [address] [place] [address], [address] Rhinovirus/Enterov irus RNA Not Detected Not Detected [facility] ([place]) Comment:Testing performed by : [facility], [address] [place] [address], [address] Parainfluenza 1 RNA Not Detected Not Detected [facility] ([place]) Comment:Testing performed by : [facility], [address] [place] [address], [address] Parainfluenza 2 RNA Not Detected Not Detected [facility] ([place]) Comment:Testing performed by : [facility], [address] [place] [address], [address] Parainfluenza 3 RNA Not Detected Not Detected [facility] ([place]) Comment:Testing performed by : [facility], [address] [place] [address], [address] Parainfluenza 4 RNA Not Detected Not Detected [facility] ([facility]) Comment:Testing performed by : [facility], [address] [place] [address], [address] B. pertussis DNA Not Detected Not Detected [facility] ([facility]) Comment:Testing performed by : [facility], [address] [place] [address]., [id number] B. parapertussis DNA Not Detected Not Detected [facility] (ALLI) Comment:Testing performed by : [facility], [address] [place] [address]., [address] C. pneumoniae DNA Not Detected Not Detected [facility] (ALLI) Comment:Testing performed by : [facility], [address] [place] [address]., [address] M. pneumoniae DNA Not Detected Not Detected [facility] (ALLI) Comment: Interpretive Data The [employer] Respiratory Panel (RP2.1) assay is a [...] patient with possible respiratory tract infection. The [employer] RP2.1 assay has FDA clearance for testing of COMPUTER GAME DESIGNER swabs. The performance characteristics of this assay have been determined by [facility]. Current interpretive data was last revised on 2020. Testing performed by: [facility], [address] [place] [address], [place]., [address] Nasopharyngeal 05/01/2024 10 :04 AM [employer]IPMENT 05/01/2024 11:23 AM [employer]ITATION WORKER [employer] EQUIPMENT Narrative AMIE RENAE ([place]) - 05/01/2024 12:24 PM [employer]IT[employer] WORKER [employer] E[employer]IPMENT Is the Patient experiencing symptoms consistent with COVID?->Yes Surveillance testing for transplant patient?->No Shara Yates DO LAB MICROBIOLOGY - GEN ERAL ORDERABLES Final Result AMIE OC ([place]) 1 [facility] Department [place] [address] CH * XR CHEST 1 VIEW PORTABLE (05/01/2024 9:53 AM [employer] WORK[employer]MENT) Anatomical Region Laterality Modality Body, Chest N/A Computed Radiogr aphy 05/01/2024 12:2 9 PM [employer]MENT Narrative 05/01/2024 12:30 PM [employer]MENT EXAM DESCRIPTION: XR CHEST 1 VIEW REASON [...] Electronically signed by Dong Thorne M.D. RB: AADLID Report ID: [id number] Reading Location: [id number] Procedure Note Dong Thorne MD - 05/01/2024 [...] Dong Thorne M.D. RB: ADALID Report ID: [id number] Reading Location: [id number] Shara Yates DO IMG XR PROCEDURES Maeve l Result * Lactate (05/01/2024 8:52 AM [employer]IT[employer] WORK[employer]MENT) Pathologist [facility] Lactate 1.3 0.7 - 2.0 mmol/L Blood 05/01/2024 8:52 AM [employer] WORK[employer]MENT 05/01/2024 9:01 AM [employer] WORKER [employer]QUIPMENT Shara Yates DO LAB BLOOD ORDERABLES F inal Result [facility] [place] 1 [facility] Department [place] [address] * eGFR (05/01/2024 8:52 AM [employer]IT[employer] WORK[employer]MENT) eGFR >90 >=60 mL/min/1. 73 m2 Comment: [...] last reviewed 2021. Blood 05/01/2024 8:52 AM [employer] WORK[employer]IPMENT 05/01/2024 9:40 AM [employer]IT[employer] WORKER [employer] EQUIPMENT Shara Serrano [facility] DO LAB BLOOD ORDERABLES F inal Result [facility]IE [facility] ([place]) 1 [facility] Department [place] [address] * (ABNORMAL) CBC without differential (05/01/2024 8:52 AM [employer]IT[employer] WORK[employer]MENT) WBC 6.4 3.8 - 9.9 K/cumm Hgb [...] 33.1 27.1 - 33.3 pg [facility] ([place]) MCHC 33.9 32.3 - 35.7 g/dL [facility] ([place]) RDW CV 13.8 11.1 - 14.9 % [facility] ([place]) RDW SD 49.1(H) 35.7 - 48.1 fL [facility] ([place]) NRBC abs 0.00 0.00 - 0.01 K/cumm [facility] ([place]) Blood 05/01/2024 8:52 AM [employer]MENT 05/01/2024 9:40 AM [employer] WORK[employer]MENT Shara Serrano Suzy DO LAB BLOOD ORDERABLES F inal Result [facility] ([place]) 1 [facility] Department [place] [address] * (ABNORMAL) Comprehensive metabolic panel (05/01/2024 8:52 AM [employer]IT[employer] WORK[employer]MENT) Sodium 132(L) 135 - 145 mmol/L Potassium, [...] [facility] ([place]) Blood 05/01/2024 8:52 AM [employer] WORK[employer] EQUIPMENT 05/01/2024 9:40 AM [employer]ITATION WORKER [employer]QUIPMENT Shara Serrano [facility] DO LAB BLOOD ORDERABLES F inal Result AMIE RENAE ([place]) 1 [facility] Department [place] [address] * (ABNORMAL) Blood culture Blood (04/30/2024 8:47 PM [employer]) Direct Specimen Exam Molecular Analysis: Methicillin-suscep tible Staphylococcus aureus (MSSA) detected by the maxx ePlex BCID-GP panel. This test does not exclude the possibility of a mixed bacterial infection. Notification of: Methicillin-suscep tible Staphylococcus aureus (MSSA) called to and read back by: Latrice Wellington MLS ([phone]) on 05/02/2024 01:41:52 by: Fritz Kebede MLS Comment:Testing performed by : [facility], [address] [place] [address]., [id number] Direct Specimen Exam Stain: Gram Positive Cocci in clusters Time to culture positivity (anaerobic media): 22.7 hours Notification of: Gram Positive Cocci in clusters called to and read back by: Latrice Wellington MLS [phone]) on 05/01/2024 23:41:23 by: Fritz Kebede MLS Test result called to and read back by fabio stephenson on 05/02/2024 00:23:23 by latrice RENAE ([place]) Comment:Testing performed by : [facility], [address] [place] [address]., [id number] Report Final Report: Staphylococcus aureus Methicillin susceptible (MSSA) by penicillin binding protein 2a (PBP2a) testing. (.) AMIE RENAE ([place]) Comment:Testing performed by : [facility], [address] [facility], [place]., [address] Organism STAPHYLOCOCCUS AUREUS AMIE RENAE ([place]) Blood 04/30/2024 8:47 PM [employer] 05/01/2024 Narrative AMIE RENAE ([place]) - 05/06/2024 1:15 PM [employer] From a different site than #1. Collection->Peripheral [...] performance characteristics have been verified by the [facility]. For questions about this culture, contact the Microbiology Laboratory at [phone]. Interpretive data was last revised on 24. [...] Guille Wall MD LAB MICROBIOLOGY - GENERAL ORDChely LARSEN Final Result Performing Organization Address City/[facility]/ZIP Co de Phone Number AMIE RENAE ([place]) 1 [facility] Department [place] [address] * Blood culture Blood (04/30/2024 8:47 PM [employer]) Report Final Report: No growth Comment:Testing performed by : [facility], [address] [place]., [address] Blood 04/30/2024 8:47 PM [employer] 05/01/2024 Narrative AMIE RENAE ([place]) - 05/05/2024 7:00 AM [employer] Collection->Peripheral 1. Blood cultures are incubated for [...] performance characteristics have been verified by the [facility]. For questions about this culture, contact the Microbiology Laboratory at [phone]. Interpretive data was last revised on 24. Guille Wall MD LAB MICROBIOLOGY - GENERAL LINDEN LARSEN Final Result AMIE RENAE ([place]) 1 [facility] Department [place] [address] * MRI Lumbar Spine WO Contrast (04/30/2024 2:26 PM [employer]) Anatomical Region Laterality Modality Spine N/A Magnetic Resonan ce 04/30/2024 4:06 PM [employer] Narrative 04/30/2024 4:12 PM [employer] EXAM DESCRIPTION: MRI LUMBAR SPINE WO CONTRAST [...] Bo Travis M.D. DORIS: DORIS Report ID: [id number] Reading Location: [place] [address] Procedure Note Bo Travis MD - 04/30/2024 [...] Relevant portions of CT abdomen pelvis with fzktokyi89/19/2025. FINDINGS: SEGMENTATION: No lumbosacral transitional anatomy. The [...] Bo Travis M.D. DORIS: DORIS Report ID: [id number] Reading Location: [id number] Zee Khan MD IMG MRI PROCEDURES Final Result * CT Abdomen Pelvis W Contrast (04/29/2024 9:22 AM [employer]) Anatomical Region Laterality Modality Body N/A Computed Tomogra phy 04/29/2024 12:5 1 PM [employer] Narrative 04/29/2024 12:58 PM [employer] EXAM DESCRIPTION: CT ABDOMEN PELVIS W CONTRAST [...] Alphonso Chaudhry M.D. DORIS: DORIS Report ID: [id number] Reading Location: [id number] Procedure Note Dave Chaudhry MD - 04/29/2024 [...] Alphonso Chaudhry M.D. DORIS: DORIS Report ID: [id number] Reading Location: [id number] us Zee Khan MD IMG CT PROCEDURES Final Result * eGFR (04/29/2024 4:53 AM [employer]) eGFR >90 >=60 mL/min/1. 73 m2 Comment: [...] last reviewed 2021. Blood 04/29/2024 4:53 AM [employer] 04/29/2024 5:18 AM [employer] Zee Khan MD LAB BLOOD ORDERABLES Fin al Result AMIE RENAE ([place]) 1 [facility] Department [place] [address] * Differential, auto (04/29/2024 4:53 AM [employer]) Neutrophil abs 2.2 1.5 - 6.5 K/cumm [...] revised on 2017. Blood 04/29/2024 4:53 AM [employer] 04/29/2024 5:17 AM [employer] Zee Khan MD LAB BLOOD ORDERABLES Fin al Result [facility] ([place]) 1 [facility] Department [place] [address] * (ABNORMAL) CBC with auto differential (04/29/2024 4:53 AM [employer]) WBC 4.4 3.8 - 9.9 K/cumm Hgb [...] [facility] ([place]) Blood 04/29/2024 4:53 AM [employer] 04/29/2024 5:17 AM [employer] us Zee Khan MD LAB BLOOD ORDERABLES Fin al Result [facility] ([place]) 1 [facility] [place] [address] * (ABNORMAL) Phosphorus (04/29/2024 4:53 AM [employer]) Phosphorus, pl 4.6(H) 2.3 - 4.5 mg/dL Blood 04/29/2024 4:53 AM [employer] 04/29/2024 5:18 AM [employer] Zee Khan MD LAB BLOOD ORDERABLES Fin al Result [facility] 1 [place] [address] * Magnesium (04/29/2024 4:53 AM [employer]) Magnesium 1.6 1.4 - 2.5 mg/dL Blood 04/29/2024 4:53 AM [employer] 04/29/2024 5:18 AM [employer] Zee Khan MD LAB BLOOD ORDERABLES Fin al Result Performing Organization Address City/[facility]/ZIP Co de Phone Number [facility] ([place]) 1 [place] [address] * Hepatic function panel (04/29/2024 4:53 AM [employer]) Bilirubin, total 0.3 0.1 - 1.2 mg/dL [...] [facility] ([place]) Blood 04/29/2024 4:53 AM [employer] 04/29/2024 5:18 AM [employer] Zee Khan MD LAB BLOOD ORDERABLES Fin al Result AMIE RENAE ([place]) 1 [facility] [employer] [place] [address] * Basic metabolic panel (04/29/2024 4:53 AM [employer]) Sodium 139 135 - 145 mmol/L Potassium, [...] [facility] ([place]) Blood 04/29/2024 4:53 AM [employer] 04/29/2024 5:18 AM [employer] Zee Khan MD LAB BLOOD ORDERABLES Fin al Result AMIE RENAE ([place]) 1 [facility] [place] [place] [address] * Lipase (04/28/2024 1:16 PM [employer]) Lipase 90 10 - 99 Units/L Blood 04/28/2024 1:16 PM [employer] 04/28/2024 1:47 PM [employer] Zee Khan MD LAB BLOOD ORDERABLES Fin al Result [facility] [address] [place] [address] [facility] [place] [address] * Hepatic function panel (04/28/2024 1:16 PM [employer]) [facility] Bilirubin, total 0.3 0.1 - 1.2 mg/dL [...] Moderately Hemolyzed Specimen Blood 04/28/2024 1:16 PM [employer] 04/28/2024 2:18 PM [employer] Zee Khan MD LAB BLOOD ORDERABLES Fin al Result AMIE RENAE ([place]) [address] [place] [address] [facility] [place] [address] * eGFR (04/26/2024 8:41 AM [employer]) eGFR >90 >=60 mL/min/1. 73 m2 Comment: [...] last reviewed 2021. Blood 04/26/2024 8:41 AM [employer] 04/26/2024 8:57 AM [employer] Maddie White MD LAB BLOOD ORDERABLES Maeve l Result [facility] ([place] 1 [facility] Department [place] [address] * (ABNORMAL) CBC without differential (04/26/2024 8:41 AM [employer]) WBC 6.4 3.8 - 9.9 K/cumm Hgb [...] [facility] ([place]) Blood 04/26/2024 8:41 AM [employer] 04/26/2024 8:57 AM [employer] Maddie White MD LAB BLOOD ORDERABLES Maeve lopez Result [facility] ([place]) 1 [facility] Department [place] [address] * Comprehensive metabolic panel (04/26/2024 8:41 AM [employer]) Sodium 138 135 - 145 mmol/L Potassium, pl 3.3 3.3 - 4.9 mmol/L [facility] ([place]) Chloride 103 97 - 110 mmol/L [facility] ([place]) CO2 22 22 - 32 mmol/L [facility] ([place]) Anion gap 13 2 - 15 mmol/L [facility] ([place]) BUN 21 6 - 25 mg/dL [facility] Creatinine 0.61 0.60 - 1.10 [...] [facility] ([place]) Blood 04/26/2024 8:41 AM [employer] 04/26/2024 8:57 AM [employer] us Maddie White MD LAB BLOOD ORDERABLES Maeve l Result AMIE RENAE ([place]) 1 [facility] [place] [address] * eGFR (04/25/2024 8:53 AM [employer]) eGFR >90 >=60 mL/min/1. 73 m2 Comment: [...] last reviewed 2021. Blood 04/25/2024 8:53 AM [employer] 04/25/2024 8:55 AM [employer] us Chang Mckeon MD LAB BLOOD ORDERABLE S Final Result AMIE RENAE ([place]) 1 [facility] Department [place] [address] * (ABNORMAL) Differential, auto (04/25/2024 8:53 AM [employer]) Neutrophil abs 6.3 1.5 - 6.5 K/cumm [...] Neutrophil pct 85.4 % [facility] ([place]) Comment: Interpretive Data Percent cell count reference ranges are not reported, since discordance with absolute values may lead to misinterpretation of CBC data. Current Interpretive Data was last revised on 2017. Imm gran pct 0.4 % [facility] ([place]) Comment: Interpretive Data Percent cell count reference [...] revised on 2017. Blood 04/25/2024 8:53 AM [employer] 04/25/2024 8:55 AM [employer] us Chang Mckeon MD LAB BLOOD ORDERABLE S Final Result [facility] ([place]) 1 [facility] [place] [address] * (ABNORMAL) CBC with auto differential (04/25/2024 8:53 AM [employer]) WBC 7.4 3.8 - 9.9 K/cumm Hgb [...] [facility] ([place]) Blood 04/25/2024 8:53 AM [employer] 04/25/2024 8:55 AM [employer] us Chang Mckeon MD LAB BLOOD ORDERABLE S Final Result [facility] ([place]) 1 [facility] [place] [address] * aPTT (04/25/2024 8:53 AM [employer]) aPTT 29 28 - 38 sec AMIE [facility] Comment: Interpretive Data Heparin therapeutic range: 66.0 - 100.0 seconds. Range based on correlation with therapeutic heparin activity range of 0.3 - 0.7 Units/mL. Current interpretive data was last revised on 2023. Blood 04/25/2024 8:53 AM [employer] 04/25/2024 5:58 PM [employer]MENT Maddie White MD LAB BLOOD ORDERABLES Maeve l Result AMIE [facility] ([place] [address] [place] [address] [facility] [place] [address] * Protime-INR (04/25/2024 8:53 AM [employer]) PT 11.5 9.7 - 13.0 sec AMIE [facility] ([place] INR 1.06 0.90 - 1.20 [facility]IE [facility] Comment: Interpretive data Oral anticoagulant therapeutic ranges: Venous thromboembolism prophylaxis or treatment: 2.0-3.0 CARDIOLOGY Standard range: 2.0-3.0 High-intensity range: 2.5-3.5 Refer to indication-specific guidelines for appropriate target ranges for prosthetic heart valve replacement. Current interpretive data was last revised on 2019. Blood 04/25/2024 8:53 AM [employer] 04/25/2024 5:58 PM [employer]MENT Maddie White MD LAB BLOOD ORDERABLES Maeve l Result [facility] 1 [facility] [place] [address] * Magnesium (04/25/2024 8:53 AM [employer]MENT) Magnesium 1.4 1.4 - 2.5 mg/dL Blood 04/25/2024 8:53 AM [employer]MENT 04/25/2024 9:56 AM [employer] Chang Mckeno MD LAB BLOOD ORDERABLE S Final Result Performing Organization Address [facility] de Phone Number AMIE RENAE (ALL[place]) 1 [facility] [place] [address] * (ABNORMAL) Ethanol (04/25/2024 8:53 AM [employer]) Ethanol 59(H) <=10 mg/dL Comment: Interpretive Data Legal limit of intoxication > or = 80 mg/dL Levels > or = 400 mg/dL are potentially TOXIC. Current interpretive data was last revised on 2018. Blood 04/25/2024 8:53 AM [employer]MENT 04/25/2024 8:55 AM [employer] Chang Mckeon MD LAB BLOOD ORDERABLE S Final Result Performing Organization Address [facility] de Phone Number AMIE RENAE ([place]) 1 [facility] [place] [address] * (ABNORMAL) Comprehensive metabolic panel (04/25/2024 8:53 AM [employer]) Sodium 134(L) 135 - 145 mmol/L Potassium, pl 3.5 3.3 - 4.9 mmol/L [facility] ([place]) Chloride 99 97 - 110 mmol/L [facility] ([place]) CO2 21(L) 22 - 32 mmol/L [facility] ([place]) Anion gap 14 2 - 15 mmol/L [facility] BUN 13 6 - 25 mg/dL [facility] ([place]) Creatinine 0.48(L) 0.60 - 1.10 mg/dL [facility] ([place]) Glucose 141 70 - 199 mg/dL [facility] ([place]) Comment: Interpretive Data Fasting [...] Hemolyzed S pecimen Blood 04/25/2024 8:53 AM [employer] 04/25/2024 8:55 AM [employer] us Chang Mckeon MD LAB BLOOD ORDERABLE S Final Result [facility] ([place]) 1 [facility] Department [place] [address] * eGFR (04/25/2024 8:33 AM [employer]) eGFR >90 >=60 mL/min/1. 73 m2 Comment: [...] last reviewed 2021. Blood 04/25/2024 8:33 AM [employer] 04/25/2024 8:41 AM [employer] Jesenia Mckeon MD LAB BLOOD ORDERABLES Final Re sult [facility] ([place]) 1 [facility] Department [place] [address] * (ABNORMAL) Drugs of Abuse Screen, Urine without Confirmation (04/25/2024 8:33 AM [employer]) Amphetamine, ur Screen Positive, presumptive (A) CutOff [...] revised on 2017. Urine 04/25/2024 8:33 AM [employer]MENT 04/25/2024 8:43 AM [employer]MENT Narrative [facility] ([place]) - 04/25/2024 9:03 AM [employer] Drug of Abuse screening is performed by immunoassay for medical purposes only. This is not to be used for Pain Management purposes. us Jesenia Mckeon MD LAB URINE ORDERABLES Final Re sult [facility] ([place]) 1 [facility] Department [place] [address] * (ABNORMAL) CBC without differential (04/25/2024 8:33 AM [employer]MENT) WBC 7.3 3.8 - 9.9 K/cumm Hgb [...] [facility] ([place]) Blood 04/25/2024 8:33 AM [employer]MENT 04/25/2024 8:41 AM [employer] us Jesenia Mckeon MD LAB BLOOD ORDERABLES Final Re sult [facility] ([place]) 1 [facility] Department [place] [address] * (ABNORMAL) Comprehensive metabolic panel (04/25/2024 8:33 AM [employer]MENT) Sodium 135 135 - 145 mmol/L Potassium, [...] Hemolyzed S pecimen Blood 04/25/2024 8:33 AM [employer]MENT 04/25/2024 8:41 AM [employer] us Jesenia Mckeon MD LAB BLOOD ORDERABLES Final Re sult [facility] ([place]) 1 [facility] Department [place] [address] from Last 3 Months Insurance [employer] [facility] [place] Advance Directives For more information, please contact: [phone] * Full Code (Latest Code Status on File) Date Activated Date Inactivated Comments 06/09/2024 2:35 PM 06/12/2024 5:25 PM * Full Code Date Activated Date Inactivated Comments 04/25/2024 5:41 PM 05/07/2024 7:44 PM Care Teams Research Executive Relationship Specialty Start Date End Date Bladimir Crowder MD [address] [place] [id number] PCP - General Family Medicine 04/25/24
--- OUTSIDE RECORDS SUMMARY | 2024-07-15 21:28 | XMS_ITS | Clinical Summary ---
Author Organization [facility] Address [address] [place] [address] Care Team Providers Care Milk Handler Name Role Phone Bladimir Crowder MD Primary Care Provider [phone] Allergies No known active allergies Medications gabapentin [...] 06/09/2024 Assessment & Plan (06/09/2024 3:43 PM MACHINE STRAP BUCKLER): Chronic hx. Managed w/ Creon TID. Pt has non-specific abdominal pain in the setting of alcohol withdrawal. Amylase and lipase are normal. Acute pancreatitis is unlikely. Plan: - Continue Creon - Monitor IV fluids - If abdominal pain persists or worsens, consider CT abdomen Cirrhosis 06/09/2024 Assessment & Plan (06/09/2024 3:33 PM MACHINE STRAP BUCKLER): Chronic hx. LFTs are normal. PT, PTT, and INR are normal. Currently stable Plan: - Monitor for symptoms Unspecified mood disorder 05/02/2024 Alcohol withdrawal syndrome without complication 04/25/2024 Assessment & Plan (06/09/2024 3:42 PM MACHINE STRAP BUCKLER): 49 y/o female w/ alcohol use disorder, [...] breakthrough seizures - Zofran PRN for nausea Encounters Date Type Department Care Team Description 06/12/2024 Documentation [facility] [address], [place] [phone] Bruno Jefferson 06/11/2024 Documentation [facility] [address], [place] [phone] Latrice Dumont 06/10/2024 Documentation [facility] [address] [place] [phone] Latrice Dumont 06/09/2024 11:27 AM MACHINE STRAP BUCKLER - 06/12/2024 1:20 PM MACHINE STRAP BUCKLER Hospital Encounter [facility] 1 [place] [address] Jesenia Mckeon MD Okonkwo, Kasiemobi Bernice, MD Richards, Davi Simmons Jr., MD Alcohol withdrawal syndrome without complication (HCC) (Primary Dx); Chronic pancreatitis, unspecified pancreatitis type (HCC) [K86.1] Discharge Disposition: Discharge to not defined facility 06/09/2024 8:20 AM MACHINE STRAP BUCKLER Lab [facility] 1 [place] [address] 06/09/[address] [facility] Enrollment [facility] [address] [place], [place] [phone] Latrice Dumont 05/28/[address] [facility] Initial Eligibility [facility] [address] [place] [phone] Bo Rojas 05/17/[address] [facility] Outreach [facility] [address] [place] [phone] Hilario, Janaroseann Benitez 05/08/2024 Telephone [facility] [address] [phone] Shara Yates DO 05/07/2024 Documentation [facility] [address] [place] [phone] Latrice Dumont 05/05/2024 Documentation [facility] [address] [place] [phone] Hilario, Janaroseann Benitez 05/03/2024 Documentation [facility] [address] [place] [phone] Hilario, Jana EValentín 05/02/2024 Documentation [facility] [address] [phone] Latrice Dumont 05/01/2024 Documentation [facility] [address] [place] [phone] Hilario, Jana EValentín 04/30/2024 Documentation [facility] [address] [place] [phone] Latrice Dumont 04/29/2024 Documentation [facility] [address] [place] [address] Latrice Dumont 04/27/2024 [facility] Enrollment [facility] [address] [place] [address] Hilario, Jana E. 04/25/2024 10:50 AM MACHINE STRAP BUCKLER - 05/07/2024 3:39 PM MACHINE STRAP BUCKLER Hospital Encounter [facility] [address] [place] [phone] Maddie White MD Sargsyan, Narine, MD Sinha, Chandni, MD Abegunde, MD Suzy Velazquez, Shara Serrano, DO Alcohol withdrawal syndrome without complication (HCC) (Primary Dx); Unspecified mood disorder Discharge Disposition: Discharge to home or self care 04/25/2024 8:30 AM MACHINE STRAP BUCKLER Lab [address] [phone] 04/25/2024 Documentation [facility] [address] [place] [address] Hilario, Jana E. 04/25/2024 Documentation [facility] [address] [place] [address] Hilario, Jana E. 04/23/2024 Documentation [facility] [address] [place] [address] Latrice Dumont from Last 3 Months Social [...] Comments Blood Pressure 128/74 06/12/2024 11:09 AM MACHINE STRAP BUCKLER Pulse 67 06/12/2024 11:09 AM MACHINE STRAP BUCKLER Temperature 36.4 C (97.5 F) 06/12/2024 11:09 AM MACHINE STRAP BUCKLER Respiratory Rate 15 06/12/2024 11:09 AM MACHINE STRAP BUCKLER Oxygen Saturation 97% 06/12/2024 11:09 AM MACHINE STRAP BUCKLER Inhaled Oxygen Concentration - - Weight 69.4 kg (153 lb) 06/09/2024 11:47 AM MACHINE STRAP BUCKLER Height 165.1 cm (5' 5 ) 06/09/2024 11:47 AM MACHINE STRAP BUCKLER Body Mass Index 25.46 06/09/2024 11:47 AM MACHINE STRAP BUCKLER Plan of Treatment Health Maintenance Due Date Last Done Comments Colon Cancer Screening-Colonoscopy 1975 Depression Screening 1975 DTaP/Tdap/Td Vaccine (1 - Tdap) 1984 Hepatitis B Screening 1991 Regular Well Visit/Exam 18-64 1991 Pneumococcal vaccine <65 (1 of 2 - PCV) 1992 Zoster Vaccine (1 of 2) 2023 Influenza Vaccine (#1) 2023 Breast Cancer Screening-Mammogram 03/29/2025 024, 03/29/2024 Hepatitis C Screening Completed 06/11/2024 Procedures Procedure Name Priority Date/Time Associated Diagnosis Comments EGFR Routine 06/12/2024 5:10 AM MACHINE STRAP BUCKLER DIFFERENTIAL AUTO Routine 06/12/2024 5:1 0 AM MACHINE STRAP BUCKLER CBC WITH AUTO DIFFERENTIAL Routine 06/12/2024 5:10 AM MACHINE STRAP BUCKLER BASIC METABOLIC PANEL Routine 06/12/2024 5:10 AM MACHINE STRAP BUCKLER CLINICAL PATHOLOGY REPORT Routine 06/11/2024 2:[address] ABDOMEN PELVIS W CONTRAST ED 06/11/2024 1:27 PM MACHINE STRAP BUCKLER ANTI-DOUBLE STRANDED DNA ANTIBODIES Routine 06/11/2024 11:59 AM MACHINE STRAP BUCKLER TONY QUALITATIVE WITH REFLEX TO TONY QUANTITATIVE Routine 06/11/2024 11:59 AM MACHINE STRAP BUCKLER FOLATE Routine 06/11/2024 11:59 AM MACHINE STRAP BUCKLER VITAMIN B12 Routine 06/11/2024 11:59 AM MACHINE STRAP BUCKLER HIV 1/2 ANTIBODY PLUS P24 ANTIGEN Routine 06/11/2024 11:59 AM MACHINE STRAP BUCKLER HEPATITIS PANEL, ACUTE Routine 06/11/2024 11:59 AM MACHINE STRAP BUCKLER SLIDE REVIEW - PATHOLOGIST Routine 06/11/2024 5:34 AM MACHINE STRAP BUCKLER EGFR Routine 06/11/2024 5:34 AM MACHINE STRAP BUCKLER DIFFERENTIAL AUTO Routine 06/11/2024 5:3 4 AM MACHINE STRAP BUCKLER CBC WITH AUTO DIFFERENTIAL Routine 06/11/2024 5:34 AM MACHINE STRAP BUCKLER BASIC METABOLIC PANEL Routine 06/11/2024 5:34 AM MACHINE STRAP BUCKLER POCT GLUCOSE DEVICE Routine 06/11/2024 3 :01 AM MACHINE STRAP BUCKLER EGFR STAT 06/10/2024 7:50 AM MACHINE STRAP BUCKLER DIFFERENTIAL AUTO STAT 06/10/2024 7:5 0 AM MACHINE STRAP BUCKLER BASIC METABOLIC PANEL STAT 06/10/2024 7:50 AM MACHINE STRAP BUCKLER CBC WITH AUTO DIFFERENTIAL STAT 06/10/2024 7:50 AM MACHINE STRAP BUCKLER ETHANOL STAT 06/09/2024 2:55 PM MACHINE STRAP BUCKLER APTT STAT 06/09/2024 2:55 PM MACHINE STRAP BUCKLER PROTIME-INR STAT 06/09/2024 2:55 PM MACHINE STRAP BUCKLER LIPASE STAT 06/09/2024 2:55 PM MACHINE STRAP BUCKLER AMYLASE STAT 06/09/2024 2:55 PM MACHINE STRAP BUCKLER EGFR STAT 06/09/2024 8:33 AM MACHINE STRAP BUCKLER DRUGS OF ABUSE SCREEN, URINE WITHOUT CONFIRMATION STAT 06/09/2024 8:33 AM MACHINE STRAP BUCKLER CBC WITHOUT DIFFERENTIAL STAT 06/09/2024 8:33 AM MACHINE STRAP BUCKLER COMPREHENSIVE METABOLIC PANEL STAT 06/09/2024 8:33 AM MACHINE STRAP BUCKLER EGFR Routine 05/05/2024 12:12 PM MACHINE STRAP BUCKLER CBC WITHOUT DIFFERENTIAL Routine 05/05/2024 12:12 PM MACHINE STRAP BUCKLER COMPREHENSIVE METABOLIC PANEL Routine 05/05/2024 12:12 PM MACHINE STRAP BUCKLER TRANSTHORACIC ECHO (TTE) COMPLETE W DOPPLER/CF WO CONTRAST Routine 05/04/2024 7:30 AM MACHINE STRAP BUCKLER US UPPER EXTREMITY RIGHT LIMITED IP Routine 05/03/2024 2:05 PM MACHINE STRAP BUCKLER BLOOD CULTURE Routine 05/03/2024 1:35 PM MACHINE STRAP BUCKLER BLOOD CULTURE Routine 05/03/2024 11:25 AM MACHINE STRAP BUCKLER TROPONIN T HIGH-SENSITIVITY 6-HOUR Timed 05/02/2024 11:01 AM MACHINE STRAP BUCKLER TROPONIN T HIGH-SENSITIVITY 2-HOUR Timed 05/02/2024 6:37 AM MACHINE STRAP BUCKLER TROPONIN T HIGH-SENSITIVITY SERIES (BASELINE, 2HR, 4HR, 6HR) Routine 05/02/2024 4:17 AM MACHINE STRAP BUCKLER ECG 12-LEAD Routine 05/02/2024 2:17 AM MACHINE STRAP BUCKLER US ABDOMEN LIMITED IP Routine 05/01/2024 3: 50 PM MACHINE STRAP BUCKLER APTT STAT 05/01/2024 2:50 PM MACHINE STRAP BUCKLER PROTIME-INR STAT 05/01/2024 2:50 PM MACHINE STRAP BUCKLER URINALYSIS, MICROSCOPIC ONLY Routine 05/01/2024 10:44 AM MACHINE STRAP BUCKLER URINALYSIS AND REFLEX TO MICROSCOPIC AND CULTURE Routine 05/01/2024 10:44 AM MACHINE STRAP BUCKLER RESPIRATORY PATHOGEN PANEL Routine 05/01/2024 10:04 AM MACHINE STRAP BUCKLER XR CHEST 1 VIEW IP Routine 05/01/2024 9:53 AM MACHINE STRAP BUCKLER EGFR STAT 05/01/2024 8:52 AM MACHINE STRAP BUCKLER LACTATE STAT 05/01/2024 8:52 AM MACHINE STRAP BUCKLER COMPREHENSIVE METABOLIC PANEL STAT 05/01/2024 8:52 AM MACHINE STRAP BUCKLER CBC WITHOUT DIFFERENTIAL STAT 05/01/2024 8:52 AM MACHINE STRAP BUCKLER BLOOD CULTURE Routine 04/30/2024 8:47 PM MACHINE STRAP BUCKLER BLOOD CULTURE Routine 04/30/2024 8:47 PM MACHINE STRAP BUCKLER MRI LUMBAR SPINE WO CONTRAST IP Routine 04/30/2024 2:[address] ABDOMEN PELVIS W CONTRAST IP Routine 04/29/2024 9:22 AM MACHINE STRAP BUCKLER EGFR Routine 04/29/2024 4:53 AM MACHINE STRAP BUCKLER DIFFERENTIAL AUTO Routine 04/29/2024 4:5 3 AM MACHINE STRAP BUCKLER PHOSPHORUS Routine 04/29/2024 4:53 AM MACHINE STRAP BUCKLER MAGNESIUM Routine 04/29/2024 4:53 AM MACHINE STRAP BUCKLER HEPATIC FUNCTION PANEL Routine 04/29/2024 4:53 AM MACHINE STRAP BUCKLER CBC WITH AUTO DIFFERENTIAL Routine 04/29/2024 4:53 AM MACHINE STRAP BUCKLER BASIC METABOLIC PANEL Routine 04/29/2024 4:53 AM MACHINE STRAP BUCKLER HEPATIC FUNCTION PANEL Add-On 04/28/2024 1:16 PM MACHINE STRAP BUCKLER LIPASE STAT 04/28/2024 1:16 PM MACHINE STRAP BUCKLER EGFR Routine 04/26/2024 8:41 AM MACHINE STRAP BUCKLER COMPREHENSIVE METABOLIC PANEL Routine 04/26/2024 8:41 AM MACHINE STRAP BUCKLER CBC WITHOUT DIFFERENTIAL Routine 04/26/2024 8:41 AM MACHINE STRAP BUCKLER APTT STAT 04/25/2024 8:53 AM MACHINE STRAP BUCKLER PROTIME-INR STAT 04/25/2024 8:53 AM MACHINE STRAP BUCKLER MAGNESIUM Add-On 04/25/2024 8:53 AM MACHINE STRAP BUCKLER EGFR STAT 04/25/2024 8:53 AM MACHINE STRAP BUCKLER DIFFERENTIAL AUTO STAT 04/25/2024 8:5 3 AM MACHINE STRAP BUCKLER ETHANOL STAT 04/25/2024 8:53 AM MACHINE STRAP BUCKLER COMPREHENSIVE METABOLIC PANEL STAT 04/25/2024 8:53 AM MACHINE STRAP BUCKLER CBC WITH AUTO DIFFERENTIAL STAT 04/25/2024 8:53 AM MACHINE STRAP BUCKLER EGFR STAT 04/25/2024 8:33 AM MACHINE STRAP BUCKLER DRUGS OF ABUSE SCREEN, URINE WITHOUT CONFIRMATION Routine 04/25/2024 8:33 AM MACHINE STRAP BUCKLER CBC WITHOUT DIFFERENTIAL STAT 04/25/2024 8:33 AM MACHINE STRAP BUCKLER COMPREHENSIVE METABOLIC PANEL STAT 04/25/2024 8:33 AM MACHINE STRAP BUCKLER from Last 3 Months Results * eGFR (06/12/2024 5:10 AM MACHINE STRAP BUCKLER) eGFR >90 >=60 mL/min/1. 73 m2 Comment: [...] last reviewed 2021. Blood 06/12/2024 5:10 AM MACHINE STRAP BUCKLER 06/12/2024 5:38 AM MACHINE STRAP BUCKLER us Dana Maradiaga MD LAB BLOOD ORDERABLE S Final Result AMIE RE[facility]E ([place]) 1 [facility] Department [place] [address] * (ABNORMAL) Differential, auto (06/12/2024 5:10 AM MACHINE STRAP BUCKLER) Neutrophil abs 1.4(L) 1.5 - 6.5 K/cumm [...] revised on 2017. Blood 06/12/2024 5:10 AM MACHINE STRAP BUCKLER 06/12/2024 5:38 AM MACHINE STRAP BUCKLER Dana Maradiaga MD LAB BLOOD ORDERABLE S Final Result [facility] (ALLI) 1 [facility] [place] [address] * (ABNORMAL) CBC with auto differential (06/12/2024 5:10 AM MACHINE STRAP BUCKLER) WBC 2.8(L) 3.8 - 9.9 K/cumm Hgb 12.7 11.9 - 15.5 g/dL [facility] ([place]) Hct 37.3 35.6 - 45.5 % [facility] ([place]) Plt 84(L) 150 - 400 K/cumm [facility] ([place]) MPV 10.5 9.1 - 12.3 fL [facility] ([place]) RBC 3.92 3.90 - 5.20 M/cumm [facility] ([place]) MCV 95.2 81.3 - 96.4 fL [facility] ([place]) MCH 32.4 27.1 - 33.3 pg [facility] ([place]) MCHC 34.0 32.3 - 35.7 g/dL [facility] ([place]) RDW CV 14.8 11.1 - 14.9 % [facility] ([place]) RDW SD 51.8(H) 35.7 - 48.1 fL [facility] ([place]) NRBC abs 0.00 0.00 - 0.01 K/cumm [facility] ([place]) Blood 06/12/2024 5:10 AM MACHINE STRAP BUCKLER 06/12/2024 5:38 AM MACHINE STRAP BUCKLER Dana Maradiaga MD LAB BLOOD ORDERABLE S Final Result [facility] ([place]) 1 [facility] [place] [address] * (ABNORMAL) Basic metabolic panel (06/12/2024 5:10 AM MACHINE STRAP BUCKLER) Pathologist [facility] Sodium 141 135 - 145 mmol/L Potassium, pl 3.7 3.3 - 4.9 mmol/L [facility] ([place]) Chloride 107 97 - 110 mmol/L [facility] ([place]) CO2 21(L) 22 - 32 mmol/L [facility] ([place]) Anion gap 13 2 - 15 mmol/L [facility] BUN 15 6 - 25 mg/dL [facility] ([facility] Creatinine 0.61 0.60 - 1.10 mg/dL [facility] ([place]) Glucose 109 70 - 199 mg/dL [facility] (ALLI) Comment: Interpretive Data Fasting [...] 2022. Calcium 9.0 8.5 - 10.3 mg/dL [facility] ([place]) Blood 06/12/2024 5:10 AM MACHINE STRAP BUCKLER 06/12/2024 5:38 AM MACHINE STRAP BUCKLER Dana Maradiaga MD LAB BLOOD ORDERABLE S Final Result [facility] ([place]) [address] [place] [address] Department [place] [address] * Clinical pathology report (06/11/2024 2:24 PM MACHINE STRAP BUCKLER) Miscellaneous 06/11/2024 2:2 4 PM MACHINE STRAP BUCKLER 06/11/2024 2:24 PM MACHINE STRAP BUCKLER Narrative 06/12/2024 8:53 AM MACHINE STRAP BUCKLER EPIC results best viewed via link to PDF [facility] Department of Pathology [address] [place] [id number] Final Report Note to Patients: This report [...] the details. Patient Name: LATRICE VALENCIA Address: [address] [id number] Gender: F : 1975 (Age: 49) Service: Medical Location: [facility] Hospital #: [id number] Patient Type: [facility] Taken: 06/11/2024 Received: 06/11/2024 Accessioned: 06/11/2024 [...] determined by the Surgical Pathology Department at [facility] as part of an ongoing quality eng program and in compliance with federally mandated [...] characteristics determined by the Surgical Pathology Department [facility]. It has not been cleared or approved by the U. S. Food and Drug Administration. REPORT IMAGES AND SCANNED DOCUMENTS, IF INCLUDED, ONLY VIEWABLE IN PDF VERSION OF REPORTe o [facility] Korina Maradiaga MD LAB PATHOLOGY ORDER OLPEZ Final Result * CT Abdomen Pelvis W Contrast (06/11/2024 1:27 PM MACHINE STRAP BUCKLER) Anatomical Region Laterality Modality Body N/A Computed Tomogra phy 06/11/2024 1:34 PM MACHINE STRAP BUCKLER Narrative 06/11/2024 1:47 PM MACHINE STRAP BUCKLER EXAM DESCRIPTION: CT ABDOMEN PELVIS W CONTRAST [...] Galaviz M.D. AG: MARIA LUISA Report ID: [id number] Reading Location: [id number] Procedure Note Eber Galaviz MD - 06/11/2024 [...] Eber Galaviz M.D. AG: AG Report ID: [id number] Reading Location: [place] [address] [facility] Korina Maradiaga MD IM CT PROCEDURES F inal Result * (ABNORMAL) TONY ab ql w/rflx to TONY qn (06/11/2024 11:59 AM MACHINE STRAP BUCKLER) TONY Positive 1:320 Comment: Interpretive Data Normal [...] last revised on 2019. Testing performed by: [facility], [address] [facility] [place]., [address] TONY, quant 1:320 titer AMIE Pereira (ALLI) Comment:Testing performed by : [facility], [address] [place]., [address] TONY, interp Speckled(A) AMIE RENAE (ALLI) Comment:Testing performed by : [facility], [address] [place]., [address] Blood 06/11/2024 11:5 9 AM MACHINE STRAP BUCKLER 06/11/2024 2:52 PM MACHINE STRAP BUCKLER Dana Maradiaga MD LAB BLOOD ORDERABLE S Final Result Performing Organization Address City/[facility]/ZIP Co de Phone Number AMIE RENAE (ALLI) 1 [facility] [employer] [address] * Anti-double stranded DNA abs (06/11/2024 11:59 AM MACHINE STRAP BUCKLER) Pathologist [facility] dsDNA Ab <1.0 <=4.0 IUnits/mL Comment: Interpretive Data Negative: < or = 4 IUnits/mL Indeterminate: 5 - 9 IUnits/mL Positive: > or = 10 IUnits/mL Current interpretive data was last revised on 2016. Testing performed by: [facility], [address] [place]., [address] Blood 06/11/2024 11:5 9 AM MACHINE STRAP BUCKLER 06/11/2024 2:52 PM MACHINE STRAP BUCKLER Dana Maradiaga MD LAB BLOOD ORDERABLE S Final Result [facility] ([place]) 1 [facility] [employer] [address] * HIV 1/2 Antibody plus p24 Antigen Blood (06/11/2024 11:59 AM MACHINE STRAP BUCKLER) Pathologist [facility] HIV 1/2 ab + p24 ag Nonreactive Nonreactive Comment: Nonreactive for HIV-1 antigen and HIV-1/HIV-2 antibodies. No laboratory evidence of HIV infection. If acute HIV infection is suspected, consider testing for HIV-1 RNA. Testing performed by: [address] [address] Blood 06/11/2024 11:5 9 AM MACHINE STRAP BUCKLER 06/11/2024 1:56 PM MACHINE STRAP BUCKLER Dana Maradiaga MD LAB MICROBIOLOGY - GENERAL ORDERABLES Final Result [facility] (ALLI) 1 [facility] Department [place] [address] * Hepatitis panel, acute Blood (06/11/2024 11:59 AM MACHINE STRAP BUCKLER) Hep A IgM Nonreactive Nonreactive Comment: Interpretive Data: If Hep A IgM Ab is reported as Equivocal, a new sample should be drawn in two weeks for testing. Current interpretive data was last revised on 19. Testing performed by: [address] [address] Hep B core IgM Nonreactive Nonreactive Selin RENAE (ALLI) Comment: Interpretive Data If HepB Core IgM Ab is reported as Equivocal, a new sample should be drawn in two weeks for testing. Current interpretive data was last revised on 19. Testing performed by: [address] [address] Hep C Ab Nonreactive Nonreactive AMIE RENAE [...] last revised on 2019. Testing performed by: [address] [address] HepBsAg Nonreactive Nonreactive AMIE RENAE (ALLI) Comment:Testing performed by : [address] [address] Blood 06/11/2024 11:5 9 AM MACHINE STRAP BUCKLER 06/11/2024 1:56 PM MACHINE STRAP BUCKLER Dana Maradiaga MD LAB MICROBIOLOGY - GENERAL ORDERABLES Final Result Performing Organization Address City/[facility]/ZIP Co de Phone Number AMIE RENAE (ALLI) 1 [facility] [place] [address] * Folate (06/11/2024 11:59 AM MACHINE STRAP BUCKLER) Folic acid >20.0 >=5.0 ng/mL Comment:Slightly Hemolyzed S pecimen. Results may be affected. Blood 06/11/2024 11:5 9 AM MACHINE STRAP BUCKLER 06/11/2024 12:25 PM MACHINE STRAP BUCKLER Dana Maradiaga MD LAB BLOOD ORDERABLE S Final Result Performing Organization Address City/[facility] Co de Phone Number AMIE RENAE ([place]) 1 [facility] [place] [address] * Vitamin B12 (06/11/2024 11:59 AM MACHINE STRAP BUCKLER) Vitamin B12 630 230 - 1,250 pg/mL Blood 06/11/2024 11:5 9 AM MACHINE STRAP BUCKLER 06/11/2024 12:25 PM MACHINE STRAP BUCKLER Dana Maradiaga MD LAB BLOOD ORDERABLE S Final Result Performing Organization Address City/[facility] Co de Phone Number [facility] ([place]) 1 [facility] [place] [address] * Slide review - pathologist (06/11/2024 5:34 AM MACHINE STRAP BUCKLER) Slide review by Dr Vaughn Diop Comment: [facility] # [id number] Interpretive Data See Clinical Pathology Report under Media section in EPIC. Current Interpretive Data was last revised on 2018. Blood 06/11/2024 5:34 AM MACHINE STRAP BUCKLER 06/11/2024 11:19 AM MACHINE STRAP BUCKLER Dana Maradiaga MD LAB BLOOD ORDERABLE S Final Result AMIE RENAE ([place]) 1 [facility] Department [place] [address] * eGFR (06/11/2024 5:34 AM MACHINE STRAP BUCKLER) eGFR >90 >=60 mL/min/1. 73 m2 Comment: [...] last reviewed 2021. Blood 06/11/2024 5:34 AM MACHINE STRAP BUCKLER 06/11/2024 5:59 AM MACHINE STRAP BUCKLER Dana Maradiaga MD LAB BLOOD ORDERABLE S Final Result AMIE RE[facility] ([place]) 1 [facility] [place] [address] * (ABNORMAL) Differential, auto (06/11/2024 5:34 AM MACHINE STRAP BUCKLER) Neutrophil abs 1.0(L) 1.5 - 6.5 K/cumm Imm gran abs 0.0 0.0 - 0.1 K/cumm AMIE RE[facility] (ALLI) Lymphocyte abs 1.1 0.8 - 3.3 [...] revised on 2017. Blood 06/11/2024 5:34 AM MACHINE STRAP BUCKLER 06/11/2024 5:57 AM MACHINE STRAP BUCKLER Dana Maradiaga MD LAB BLOOD ORDERABLE S Final Result [facility] ([place]) 1 [facility] Department [place] [address] * (ABNORMAL) CBC with auto differential (06/11/2024 5:34 AM MACHINE STRAP BUCKLER) [facility] WBC 2.6(L) 3.8 - 9.9 K/cumm Hgb 12.3 11.9 - 15.5 g/dL [facility] ([place]I) Hct 36.5 35.6 - 45.5 % [facility] ([place]) Plt 80(L) 150 - 400 [...] [facility] ([place]) Blood 06/11/2024 5:34 AM MACHINE STRAP BUCKLER 06/11/2024 5:57 AM MACHINE STRAP BUCKLER us Dana Maradiaga MD LAB BLOOD ORDERABLE S Final Result [facility] ([place]) 1 [facility] [place] [address] * (ABNORMAL) Basic metabolic panel (06/11/2024 5:34 AM MACHINE STRAP BUCKLER) [facility] Sodium 140 135 - 145 mmol/L Potassium, pl 4.1 3.3 - 4.9 mmol/L [facility] ([place]) Chloride 108 97 - 110 mmol/L [facility] ([place]) CO2 23 22 - 32 mmol/L [facility] ([place]) Anion gap 9 2 - 15 mmol/L [facility] ([place]) BUN 15 6 - 25 mg/dL [facility] ([place]) [...] 2022. Calcium 9.1 8.5 - 10.3 mg/dL [facility] ([place]I) Blood 06/11/2024 5:34 AM MACHINE STRAP BUCKLER 06/11/2024 5:59 AM MACHINE STRAP BUCKLER Dana Maradiaga MD LAB BLOOD ORDERABLE S Final Result AMIE [facility] (ALLI) 1 [facility] [place] [address] * POCT glucose (06/11/2024 3:01 AM MACHINE STRAP BUCKLER) [facility] Signature Glucose, POC 92 70 - 199 mg/dL Blood 06/11/2024 3:01 AM MACHINE STRAP BUCKLER 06/11/2024 3:01 AM MACHINE STRAP BUCKLER Dana Maradiaga MD LAB POCT ORDERABLES - DEVICE Final Result [facility] 1 [facility] [place] [address] * eGFR (06/10/2024 7:50 AM MACHINE STRAP BUCKLER) eGFR >90 >=60 mL/min/1. 73 m2 Comment: [...] last reviewed 2021. Blood 06/10/2024 7:50 AM MACHINE STRAP BUCKLER 06/10/2024 8:39 AM MACHINE STRAP BUCKLER us Dana Maradiaga MD LAB BLOOD ORDERABLE S Final Result [facility] ([place]) 1 [facility] Department [place] [address] * Differential, auto (06/10/2024 7:50 AM MACHINE STRAP BUCKLER) Neutrophil abs 1.5 1.5 - 6.5 K/cumm [...] revised on 2017. Blood 06/10/2024 7:50 AM MACHINE STRAP BUCKLER 06/10/2024 8:39 AM MACHINE STRAP BUCKLER us Dana Maradiaga MD LAB BLOOD ORDERABLE S Final Result [facility]IE RE[facility]E ([place]I) 1 [facility] Department of Laboratories [place], [place] [address] * (ABNORMAL) CBC with auto differential (06/10/2024 7:50 AM MACHINE STRAP BUCKLER) WBC 3.2(L) 3.8 - 9.9 K/cumm Hgb [...] [facility] (ALLI) Blood 06/10/2024 7:50 AM MACHINE [employer] [facility] 06/10/2024 8:39 AM MACHINE [employer] [facility] us Dana Maradiaga MD LAB BLOOD ORDERABLE S Final Result [facility] (ALLI) 1 [facility] Department [place] [address] * (ABNORMAL) Basic metabolic panel (06/10/2024 7:50 AM MACHINE [employer] [facility]CKL[employer]) Sodium 137 135 - 145 mmol/L Potassium, [...] (ALLI) Glucose 90 70 - 199 mg/dL [facility] (ALLI) [...] 2022. Calcium 9.2 8.5 - 10.3 mg/dL AMIE RENAE (ALLI) Blood 06/10/2024 7:50 AM MACHINE [employer] [facility] 06/10/2024 8:39 AM MACHINE STRAP BUCKLER Dana Maradiaga MD LAB BLOOD ORDERABLE S Final Result Performing Organization Address City/[facility]/ZIP Co de Phone Number AMIE RENAE (ROMNEY) 1 [facility] [place] [address] * aPTT (06/09/2024 2:55 PM MACHINE STRAP BUCKLER) aPTT 32 28 - 38 sec AMIE RENAE (ALLI) Comment: Interpretive Data Heparin therapeutic range: 66.0 - 100.0 seconds. Range based on correlation with therapeutic heparin activity range of 0.3 - 0.7 Units/mL. Current interpretive data was last revised on 2023. Blood 06/09/2024 2:55 PM MACHINE STRAP BUCKLER 06/09/2024 3:01 PM MACHINE STRAP BUCKLER Dana Maradiaga MD LAB BLOOD ORDERABLE S Final Result Performing Organization Address City/[facility]/ZIP Co de Phone Number JHONANAID [facility] (ROMNEY) 1 [facility] [employer] [address] * Protime-INR (06/09/2024 2:55 PM MACHINE STRAP BUCKLER) PT 11.4 9.7 - 13.0 sec AMIE RENAE ([place]NEY) INR 1.05 0.90 - 1.20 AMIE RENAE (ROMNEY) Comment: Interpretive data Oral anticoagulant therapeutic ranges: Venous thromboembolism prophylaxis or treatment: 2.0-3.0 CARDIOLOGY Standard range: 2.0-3.0 High-intensity range: 2.5-3.5 Refer to indication-specific guidelines for appropriate target ranges for prosthetic heart valve replacement. Current interpretive data was last revised on 2019. Blood 06/09/2024 2:55 PM MACHINE STRAP BUCKLER 06/09/2024 3:01 PM MACHINE STRAP BUCKLER Dana Maradiaga MD LAB BLOOD ORDERABLE S Final Result AMIE RENAE (ROMNEY) 1 [facility] [place] [employer] [place] [address] * Lipase (06/09/2024 2:55 PM MACHINE STRAP BUCKLER) Lipase 92 10 - 99 Units/L Blood 06/09/2024 2:55 PM MACHINE STRAP BUCKLER 06/09/2024 3:01 PM MACHINE STRAP BUCKLER Dana Maradaiga MD LAB BLOOD ORDERABLE S Final Result Performing Organization Address City/[facility]/ZIP Co de Phone Number AMIE [facility] (ROMNEY) 1 [facility] [place] [address] * Amylase (06/09/2024 2:55 PM MACHINE STRAP BUCKLER) Amylase 58 30 - 99 Units/L Blood 06/09/2024 2:55 PM MACHINE STRAP BUCKLER 06/09/2024 3:01 PM MACHINE STRAP BUCKLER Dana Maradiaga MD LAB BLOOD ORDERABLE S Final Result AMIE [facility] (ROMNEY) 1 [facility] [place] [address] * Ethanol (06/09/2024 2:55 PM MACHINE STRAP BUCKLER) Ethanol <10 <=10 mg/dL Comment: Interpretive Data Legal limit of intoxication > or = 80 mg/dL Levels > or = 400 mg/dL are potentially TOXIC. Current interpretive data was last revised on 2018. Blood 06/09/2024 2:55 PM MACHINE STRAP BUCKLER 06/09/2024 3:01 PM MACHINE STRAP BUCKLER us Dana Maradiaga MD LAB BLOOD ORDERABLE S Final Result [facility]IE [facility] (ROMNEY) 1 [facility] [employer] [place], [place] [id number] * eGFR (06/09/2024 8:33 AM MACHINE STRAP BUCKLER) eGFR >90 >=60 mL/min/1. 73 m2 Comment: [...] last reviewed 2021. Blood 06/09/2024 8:33 AM MACHINE STRAP BUCKLER 06/09/2024 8:36 AM MACHINE STRAP BUCKLER us Jesenia Mckeon MD LAB BLOOD ORDERABLES Final Re sult CER[facility]ID [facility] (ALLI) 1 [facility] [place] [employer] [address] * (ABNORMAL) Drugs of Abuse Screen, Urine without Confirmation (06/09/2024 8:33 AM MACHINE STRAP BUCKLER) Amphetamine, ur Screen Positive, presumptive (A) CutOff [...] 2023. Methadone, ur Not Detected CutOff 300ng/mL [facility] (ALLI) Comment: Interpretive Data - Methadone: Samples containing greater than 300 ng/mL d,l-methadone or other cross-reacting compounds are reported as positive. False positive and false negative results are possible. Confirmatory testing required for definitive results. Current Interpretive Data was last reviewed 2022. Opiates, ur Not Detected CutOff 300ng/mL [facility] (ALLI) Comment: Interpretive Data - Opiates: Samples containing greater than 300 ng/mL morphine or other cross-reacting compounds are reported as positive. False positive and false negative results are possible. Confirmatory testing required for definitive results. Current Interpretive Data was last reviewed 2022. Oxycodone, ur Not Detected CutOff 100ng/mL [facility] (ALLI) Comment: Interpretive Data - Oxycodone: [...] last reviewed 2022. Urine Creatinine 373 mg/dL CER ANAID [facility] (ALLI) Comment: Interpretive Data Urine Creatinine: < 10 mg/dL is extremely dilute = or > 10 but < 20 mg/dL is dilute = or > 20 mg/dL is normal Current Interpretive Data was last revised on 2017. Urine 06/09/2024 8:33 AM MACHINE STRAP BUCKLER 06/09/2024 9:03 AM MACHINE STRAP BUCKLER Narrative AMIE RENAE (ALLI) - 06/09/2024 9:31 AM MACHINE STRAP BUCKLER Drug of Abuse screening is performed by immunoassay for medical purposes only. This is not to be used for Pain Management purposes. us Jesenia Mckeon MD LAB URINE ORDERABLES Final Re sult [facility]IE [facility] (ALLI) 1 [facility] Department [place] [address] * (ABNORMAL) CBC without differential (06/09/2024 8:33 AM MACHINE STRAP BUCKLER) WBC 5.2 3.8 - 9.9 K/cumm Hgb [...] - 0.01 K/cumm [facility] (ALLI) Blood 06/09/2024 8:33 AM MACHINE STRAP BUCKLER 06/09/2024 8:36 AM MACHINE STRAP BUCKLER us Jesenia Mckeon MD LAB BLOOD ORDERABLES Final Re sult AMIE RENAE (ALLI) 1 [facility] Department [place] [address] * (ABNORMAL) Comprehensive metabolic panel (06/09/2024 8:33 AM MACHINE STRAP BUCKLER) Sodium 140 135 - 145 mmol/L Potassium, pl 3.5 3.3 - 4.9 mmol/L [facility] (ALLI) Chloride 105 97 - 110 mmol/L [facility] (ALLI) CO2 21(L) 22 - 32 mmol/L [facility] (ALLI) Anion gap 14 2 - 15 mmol/L [facility] (ALLI) BUN 13 6 - 25 mg/dL [facility] (ALLI) Creatinine 0.67 0.60 - 1.10 mg/dL [facility] (ALLI) Glucose 127 70 - 199 mg/dL [facility] (ALLI) [...] [facility] (ALLI) Blood 06/09/2024 8:33 AM MACHINE STRAP BUCKLER 06/09/2024 8:36 AM MACHINE STRAP BUCKLER us Jesenia Mckeon MD LAB BLOOD ORDERABLES Final Re sult [facility]IE [facility] (ALLI) 1 [facility] Department [place] [address] * eGFR (05/05/2024 12:12 PM MACHINE STRAP BUCKLER) eGFR >90 >=60 mL/min/1. 73 m2 Comment: [...] reviewed 2021. Blood 05/05/2024 12:1 2 PM MACHINE STRAP BUCKLER 05/05/2024 12:26 PM MACHINE STRAP BUCKLER Shara Serrano [facility] DO LAB BLOOD ORDERABLES F inal Result AMIE [facility] (ROMNEY) 1 [facility] Department of Laboratories [place], [place] [id number] * (ABNORMAL) CBC without differential (05/05/2024 12:12 PM MACHINE STRAP BUCKLER) Pathologist [facility] WBC 4.3 3.8 - 9.9 K/cumm Hgb [...] NRBC abs 0.00 0.00 - 0.01 K/cumm JHONNER [facility] (ALLI) Blood 05/05/2024 12:1 2 PM MACHINE STRAP BUCKLER 05/05/2024 12:26 PM MACHINE STRAP BUCKLER us Shara Serrano Suzy DO LAB BLOOD ORDERABLES F inal Result [facility]IE [facility] (ALLI) 1 [facility] Department [place] [address] * (ABNORMAL) Comprehensive metabolic panel (05/05/2024 12:12 PM MACHINE STRAP BUCKLER) Sodium 138 135 - 145 mmol/L Potassium, [...] [facility] (ALLI) Blood 05/05/2024 12:1 2 PM MACHINE STRAP BUCKLER 05/05/2024 12:26 PM MACHINE STRAP BUCKLER Shara Yates DO LAB BLOOD ORDERABLES F inal Result [facility]IE [facility] (ALLI) 1 [facility] [place] [address] * TRANSTHORACIC ECHO (TTE) COMPLETE W DOPPLER/CF WO CONTRAST (05/04/2024 7:30 AM MACHINE STRAP BUCKLER) LV EF 60-65 % CONS SCIMAGE Anatomical Region Laterality Modality Ultrasound 05/04/2024 7:13 AM MACHINE STRAP BUCKLER Narrative 05/04/2024 4:47 PM MACHINE STRAP BUCKLER [address] [address] Echocardiogram Report Patient Name: LATRICE VALENCIA : 1975 Study Date: 05/04/2024 7:13:46 AM Gender: F Tech: NL Location: [id number] Ref Provider: SHARA YATES Height(Cm): 165 BSA: [...] By: Kwaku Blanco MD 05/04/2024 4:46:44 PM MACHINE STRAP BUCKLER Procedure Note Kwaku Blanco MD - 05/04/2024 [place] [address] Echocardiogram Report Patient Name: LATRICE VALENCIA : 1975 Study Date: 05/04/2024 7:13:46 AM Gender: F Tech: Location: [id number] Ref Provider: SHARA YATES Height(Cm): 165 BSA: [...] By: Kwaku Blanco MD 05/04/2024 4:46:44 PM MACHINE STRAP BUCKLER us Shara Yates DO CV ECHO PROCEDURES Fin al Result * US Upper Extremity Right Limited (05/03/2024 2:05 PM MACHINE STRAP BUCKLER) Anatomical Region Laterality Modality Upper Extremities Right Ultrasound 05/03/2024 4:48 PM MACHINE STRAP BUCKLER Narrative 05/03/2024 4:51 PM MACHINE STRAP BUCKLER EXAM DESCRIPTION: US UPPER EXTREMITY RIGHT LIMITED REASON FOR STUDY: Patient with cellulitis at site of right forearm prior IV site. Firmness at this area, wanting to rule out an abscess. TECHNIQUE: A Dynamic assessment was performed of the soft tissues in the right elbow region by the community support specialist, with selected grayscale and color Doppler images acquired and recorded in PACS. COMPARISON: None FINDINGS: Thrombus is seen within a superficial vein within the region of concern, with prominent peripheral vascularity. IMPRESSION: Superficial thrombophlebitis within the region of concern. THIS IS AN ELECTRONICALLY VERIFIED FINAL REPORT 05/03/2024 4:51 PM - Electronically signed by Boyd Cook M.D. KR: CHANG Report ID: [id number] Reading Location: [id number] Procedure Note Boyd Cook MD - 05/03/2024 EXAM DESCRIPTION: US UPPER EXTREMITY RIGHT LIMITED REASON FOR STUDY: Patient with cellulitis at site of right forearm priorIV site. Firmness at this area, wanting to rule out an abscess. TECHNIQUE: A Dynamic assessment was performed of the soft tissues in theright elbow region by the community support specialist, with selected grayscale and color Doppler images acquired and recorded in PACS. COMPARISON: None FINDINGS: Thrombus is seen within a superficial vein within the region of concern,with prominent peripheral vascularity. IMPRESSION: Superficial thrombophlebitis within the region of concern. THIS IS AN ELECTRONICALLY VERIFIED FINAL REPORT 05/03/2024 4:51 PM - Electronically signed by Boyd Cook M.D. KR: CHANG Report ID: [id number] Reading Location: [id number] Shara Serrano [facility] DO IMG US PROCEDURES Maeve l Result * Blood culture Blood (05/03/2024 1:35 PM MACHINE STRAP BUCKLER) Report Final Report: No growth Comment:Testing performed by : [facility], [address] [place]., [address] Blood 05/03/2024 1:35 PM MACHINE STRAP BUCKLER 05/03/2024 4:30 PM MACHINE STRAP BUCKLER Narrative AMIE RENAE (ALLI) - 05/08/2024 7:00 AM MACHINE STRAP BUCKLER From a different site than #1. Collection->Peripheral [...] characteristics have been verified by the [facility] Microbiology Laboratory. For questions about this culture, contact the Microbiology Laboratory at [phone]. Interpretive data was last revised on 24. Shara Yates DO LAB MICROBIOLOGY - GEN ERAL ORDERABLES Final Result AMIE JURADO) 1 [facility] Department [place] [address] * Blood culture Blood (05/03/2024 11:25 AM MACHINE STRAP BUCKLER) Report Final Report: No growth Comment:Testing performed by : [facility], 1 [facility] [place] [address] Blood 05/03/2024 11:2 5 AM MACHINE STRAP BUCKLER 05/03/2024 1:53 PM MACHINE STRAP BUCKLER Narrative AMIE JURADO) - 05/07/2024 4:00 PM MACHINE STRAP BUCKLER Collection->Peripheral 1. Blood cultures are incubated for [...] characteristics have been verified by the [facility] Microbiology Laboratory. For questions about this culture, contact the Microbiology Laboratory at [phone]. Interpretive data was last revised on 24. Shara Yates DO LAB MICROBIOLOGY - GEN ERAL ORDERABLES Final Result AMIE RENAE (ALLI) 1 [facility] [place] [place] [address] * Troponin T high-sensitivity 6-hour (05/02/2024 11:01 AM MACHINE STRAP BUCKLER) Trop T hs <6 <=14 ng/L Comment: Interpretive Data For further hscTnT resources including the diagnostic algorithm and an aid in interpretation, copy and paste this link: https://nrl.Netmining.org/show/hsTrop Current Interpretive Data last revised 2020. Trop T hs delta 0 ng/L [facility] ER [facility] (ALLI) Trop T hs interp Insignificant [facility] (ALLI) Blood 05/02/2024 11:0 1 AM MACHINE STRAP BUCKLER 05/02/2024 11:11 AM MACHINE STRAP BUCKLER us Guille Wall MD LAB BLOOD ORDERABLES Final Resu lt Performing Organization Address [facility] Co de Phone Number AMIE RENAE (ALLI) 1 [facility] [place] [place] [address] * Troponin T high-sensitivity 2-hour (05/02/2024 6:37 AM MACHINE STRAP BUCKLER) Trop T hs <6 <=14 ng/L Comment: Interpretive Data For further hscTnT resources including the diagnostic algorithm and an aid in interpretation, copy and paste this link: https://nrl.testMowbly.org/show/hsTrop Current Interpretive Data last revised 2020. Trop T hs delta 0 ng/L [facility] (ALLI) Trop T hs interp Insignificant [facility] (ALLI) Blood 05/02/2024 6:37 AM MACHINE STRAP BUCKLER 05/02/2024 7:06 AM MACHINE STRAP BUCKLER Guille Wall MD LAB BLOOD ORDERABLES Final Resu lt AMIE RENAE (ALLI) 1 [facility] [place] [address] * Troponin T high-sensitivity series (baseline, 2hr, 4hr, 6hr) (05/02/2024 4:17 AM MACHINE STRAP BUCKLER) Trop T hs <6 <=14 ng/L Comment: Interpretive Data For further hscTnT resources including the diagnostic algorithm and an aid in interpretation, copy and paste this link: https://nrl.testcatalog.org/show/hsTrop Current Interpretive Data last revised 2020. Blood 05/02/2024 4:17 AM MACHINE STRAP BUCKLER 05/02/2024 4:40 AM MACHINE STRAP BUCKLER us Guille Wall MD LAB BLOOD ORDERABLES Final Resu lt Performing Organization Address [facility] Co de Phone Number AMIE [facility] (ROMNEY) 1 [facility] [place] [address] * ECG 12 lead (05/02/2024 2:17 AM MACHINE STRAP BUCKLER) 05/02/2024 2:17 AM MACHINE STRAP BUCKLER Narrative [facility] - 05/02/2024 7:39 AM MACHINE STRAP BUCKLER Vent Rate: 73 bpm RR Interval: 816 msec NM Interval: 180 msec QRS Duration: 84 msec QT Interval: 397 msec QTC Interval: 423 msec P-R-T [place]: 40 - -21 - 31 degrees IMPRESSION: SINUS RHYTHM WITH SINUS ARRHYTHMIA BORDERLINE LEFT AXIS DEVIATION [QRS AXIS < -20] BORDERLINE ECG Electronically Signed By: Kwaku Blanco MD us Guille Wall MD ECG ORDERABLES Final Result Performing Organization Address [facility] Co de Phone Number [facility] * US Abdomen Limited (05/01/2024 3:50 PM MACHINE STRAP BUCKLER) Anatomical Region Laterality Modality Abdomen N/A Ultrasound 05/01/2024 5:06 PM MACHINE STRAP BUCKLER Narrative 05/01/2024 5:08 PM MACHINE STRAP BUCKLER EXAM DESCRIPTION: US ABDOMEN LIMITED REASON FOR [...] Boyd Caldwell M.D. KT: KARINA Report ID: [id number] Reading Location: [id number] Procedure Note Boyd Caldwell MD - 05/01/2024 [...] Boyd Caldwell M.D. KT: KARINA Report ID: [id number] Reading Location: [id number] [facility] DO [facility] US PROCEDURES Maeve l Result * aPTT (05/01/2024 2:50 PM MACHINE STRAP BUCKLER) aPTT 34 28 - 38 sec AMIE RENAE (ALLI) Comment: Interpretive Data Heparin therapeutic range: 66.0 - 100.0 seconds. Range based on correlation with therapeutic heparin activity range of 0.3 - 0.7 Units/mL. Current interpretive data was last revised on 2023. Blood 05/01/2024 2:50 PM MACHINE STRAP BUCKLER 05/01/2024 3:05 PM MACHINE STRAP BUCKLER Shara Serrano [facility] DO LAB BLOOD ORDERABLES F inal Result Performing Organization Address [facility] de Phone Number AMIE RENAE (ROMNEY) 1 [place] [address] * (ABNORMAL) Protime-INR (05/01/2024 2:50 PM MACHINE STRAP BUCKLER) PT 14.9(H) 9.7 - 13.0 sec AMIE [facility] (ROMNEY) INR 1.37(H) 0.90 - 1.20 AMIE [facility] ([place]NEY) Comment: Interpretive data Oral anticoagulant therapeutic ranges: Venous thromboembolism prophylaxis or treatment: 2.0-3.0 CARDIOLOGY Standard range: 2.0-3.0 High-intensity range: 2.5-3.5 Refer to indication-specific guidelines for appropriate target ranges for prosthetic heart valve replacement. Current interpretive data was last revised on 2019. Blood 05/01/2024 2:50 PM MACHINE STRAP BUCKLER 05/01/2024 3:05 PM MACHINE STRAP BUCKLER Shara Serrano Suzy LAB BLOOD ORDERABLES F inal Result Performing Organization Address [facility] de Phone Number AMIE RENAE ([place]NEY) [address] [place] [address] * (ABNORMAL) Urinalysis reflex to microscopic and culture Urine (05/01/2024 10:44 AM MACHINE STRAP BUCKLER) Color, ur Yellow Yellow Clarity, ur Clear Clear AMIE Patel (ROMNEY) Specific gravity, ur 1.017 1.003 - 1.030 AMIE [facility] (ALLI) pH, urine 6.0 AMIE [facility] (ROMNEY) Comment: Interpretive Data U rine pH is affected by diet, medications, systemic acid-base disturbances, and renal tubular function. pH may affect urinary stone formation. For example, urine pH below 6.0 may help reduce the tendency for calcium phosphate stones and pH greater than 6.0 may reduce the tendency for uric acid stone formation. Source: [facility] Current Interpretive Data [...] [facility] (ALLI) Urine 05/01/2024 10:4 4 AM MACHINE STRAP BUCKLER 05/01/2024 10:50 AM MACHINE STRAP BUCKLER Shara Yates DO LAB MICROBIOLOGY - GEN ERAL ORDERABLES Final Result Performing Organization Address [facility] de Phone Number [facility] (ALLI) 1 [facility] [employer] [address] * (ABNORMAL) Urinalysis, microscopic only (05/01/2024 10:44 AM MACHINE STRAP BUCKLER) WBC, ur 0-5 0 - 5 /HPF RBC, ur 0-2 0 - 2 /HPF [facility] (ALLI) Epithelial cells, squamous, ur 11-20(A) 0 - 5 /HPF [facility] (ALLI) Bacteria, ur Trace(A) [facility] (ALLI) Mucous, ur Present(A) C[facility]ER [facility] (ALLI) Culture Reflex Comment Reflex conditions for urine culture (WBC >10) not met. [facility] (ALLI) Urine 05/01/2024 10:4 4 AM MACHINE STRAP BUCKLER 05/01/2024 10:50 AM MACHINE STRAP BUCKLER Shara Yates DO LAB URINE ORDERABLES F inal Result Performing Organization Address [facility]/ZIP Co de Phone Number [facility] (ALLI[facility] 1 [facility] [place] [address] * Respiratory pathogen panel Nasopharyngeal (05/01/2024 10:04 AM MACHINE STRAP BUCKLER) Pathologist [facility] Influenza A RNA Not Detected Not Detected Comment:Testing performed by : [facility], [address] [place] [address], [id number] Influenza B RNA Not Detected Not Detected [facility] (ALLI) Comment:Testing performed by : [facility], [address] [place] [address], [id number] RSV RNA Not Detected Not Detected [facility] (ALLI) Comment:Testing performed by : [facility], [address] [place] [address]., [id number] COVID-19 RNA Not Detected Not Detected [facility] (ALLI) Comment:Testing performed by : [facility], [address] [place] [address], [id number] Coronavirus 229E RNA Not Detected Not Detected [facility] (ALLI) Comment:Testing performed by : [facility], [address] [place] [address], [id number] Coronavirus HKU1 RNA Not Detected Not Detected [facility] (ALLI) Comment:Testing performed by : [facility], [address] [place] [address], [id number] Coronavirus NL63 RNA Not Detected Not Detected [facility] (ALLI) Comment:Testing performed by : [facility], [address] [place] [address], [id number] Coronavirus OC43 RNA Not Detected Not Detected [facility] (ALLI) Comment:Testing performed by : [facility], [address] [place] [address], [id number] Adenovirus DNA Not Detected Not Detected [facility] (ALLI) Comment:Testing performed by : [facility], [address] [place] [address]., [phone] Metapneumovirus RNA Not Detected Not Detected [facility] (ALLI) Comment:Testing performed by : [facility], [address] [place] [address], [id number] Rhinovirus/Enterov irus RNA Not Detected Not Detected [facility] (ALLI) Comment:Testing performed by : [facility], [address] [place] [address], [phone] Parainfluenza 1 RNA Not Detected Not Detected [facility] (ALLI) Comment:Testing performed by : [facility], [address] [place] [address], [id number] Parainfluenza 2 RNA Not Detected Not Detected [facility] (ALLI) Comment:Testing performed by : [facility], [address] [place] [address]., [id number] Parainfluenza 3 RNA Not Detected Not Detected [facility] (ALLI) Comment:Testing performed by : [facility], [address] [place] [address]., [id number] Parainfluenza 4 RNA Not Detected Not Detected [facility] (ALLI) Comment:Testing performed by : [facility], [address] [place] [address]., [phone] B. pertussis DNA Not Detected Not Detected [facility] (ALLI) Comment:Testing performed by : [facility], [address] [place] [address]., [phone] B. parapertussis DNA Not Detected Not Detected [facility] (ALLI) Comment:Testing performed by : [facility], [address] [place] [address]., [id number] C. pneumoniae DNA Not Detected Not Detected [facility] (ALLI) Comment:Testing performed by : [facility], [address] [place] [address]., [id number] M. pneumoniae DNA Not Detected Not Detected [facility] (ALLI) Comment: Interpretive Data The Alo7 FilmArray Respiratory Panel (RP2.1) assay is a [...] assay has FDA clearance for testing of CLINICAL PROJECT MANAGER swabs. The performance characteristics of this assay have been determined by [facility]. Current interpretive data was last revised on 2020. Testing performed by: [facility], [address] [place] [address]., [id number] Nasopharyngeal 05/01/2024 10 :04 AM MACHINE STRAP BUCKLER 05/01/2024 11:23 AM MACHINE STRAP BUCKLER Narrative AMIE RENAE (ALLI) - 05/01/2024 12:24 PM MACHINE STRAP BUCKLER Is the Patient experiencing symptoms consistent with COVID?->Yes Surveillance testing for transplant patient?->No Shara Serrano [facility] DO LAB MICROBIOLOGY - GEN ERAL ORDERABLES Final Result AMIE RENAE (ALLI) 1 [facility] Department [place] [address] CH * XR CHEST 1 VIEW PORTABLE (05/01/2024 9:53 AM MACHINE STRAP BUCKLER) Anatomical Region Laterality Modality Body, Chest N/A Computed Radiogr aphy 05/01/2024 12:2 9 PM MACHINE STRAP BUCKLER Narrative 05/01/2024 12:30 PM MACHINE STRAP BUCKLER EXAM DESCRIPTION: XR CHEST 1 VIEW REASON [...] Dong Thorne M.D. RB: ADALID Report ID: [id number] Reading Location: [id number] Procedure Note Dong Thorne MD - 05/01/2024 [...] Dong Thorne M.D. RB: ADALID Report ID: [id number] Reading Location: [id number] Shara Serrano [facility] DO IMG XR PROCEDURES Maeve l Result * Lactate (05/01/2024 8:52 AM MACHINE STRAP BUCKLER) Lactate 1.3 0.7 - 2.0 mmol/L Blood 05/01/2024 8:52 AM MACHINE STRAP BUCKLER 05/01/2024 9:01 AM MACHINE STRAP BUCKLER Shara Yates DO LAB BLOOD ORDERABLES F inal Result AMIE RENAE (ROMNEY) 1 [facility] [place] [address] * eGFR (05/01/2024 8:52 AM MACHINE STRAP BUCKLER) eGFR >90 >=60 mL/min/1. 73 m2 Comment: [...] last reviewed 2021. Blood 05/01/2024 8:52 AM MACHINE STRAP BUCKLER 05/01/2024 9:40 AM MACHINE STRAP BUCKLER Shara Yates DO LAB BLOOD ORDERABLES F inal Result AMIE RENAE (ALLI) 1 [facility] [place] [address] * (ABNORMAL) CBC without differential (05/01/2024 8:52 AM MACHINE STRAP BUCKLER) Pathologist [facility] WBC 6.4 3.8 - 9.9 K/cumm Hgb [...] [facility] (ALLI) Blood 05/01/2024 8:52 AM MACHINE STRAP BUCKLER 05/01/2024 9:40 AM MACHINE STRAP BUCKLER Shara [facility] DO LAB BLOOD ORDERABLES F inal Result [facility] (ALLI) 1 [facility] Department of Laboratories [place], [place] [id number] * (ABNORMAL) Comprehensive metabolic panel (05/01/2024 8:52 AM MACHINE STRAP BUCKLER) Sodium 132(L) 135 - 145 mmol/L Potassium, pl 3.6 3.3 - 4.9 mmol/L [facility] Chloride 100 97 - 110 [...] [facility] (ALLI) Blood 05/01/2024 8:52 AM MACHINE STRAP BUCKLER 05/01/2024 9:40 AM MACHINE STRAP BUCKLER Shara S[facility]ano [facility] DO LAB BLOOD ORDERABLES F inal Result AMIE RENAE (ALLI) 1 [facility] Department [place] [address] * (ABNORMAL) Blood culture Blood (04/30/2024 8:47 PM MACHINE STRAP BUCKLER) Direct Specimen Exam Molecular Analysis: Methicillin-suscep tible Staphylococcus aureus (MSSA) detected by the maxx ePlex BCID-GP panel. This test does not exclude the possibility of a mixed bacterial infection. Notification of: Methicillin-suscep tible Staphylococcus aureus (MSSA) called to and read back by: Latrice Wellington MLS ([phone]) on 05/02/2024 01:41:52 by: Fritz Kebede MLS Comment:Testing performed by : [facility], [address] [facility] [place]., [address] Direct Specimen Exam Stain: Gram Positive Cocci in clusters Time to culture positivity (anaerobic media): 22.7 hours Notification of: Gram Positive Cocci in clusters called to and read back by: Latrice Wellington MLS [phone]) on 05/01/2024 23:41:23 by: Fritz Kebede MLS Test result called to and read back by fabio stephenson on 05/02/2024 00:23:23 by latrice RENAE (ALLI) Comment:Testing performed by : [facility], [address] [place] [address]., [id number] Report Final Report: Staphylococcus aureus Methicillin susceptible (MSSA) by penicillin binding protein 2a (PBP2a) testing. (.) AMIE RENAE (ALLI) Comment:Testing performed by : [facility], [address] [place] [address]., [id number] Organism STAPHYLOCOCCUS AUREUS AMIE RENAE (ALLI) Blood 04/30/2024 8:47 PM MACHINE STRAP BUCKLER 05/01/2024 Narrative AMIE RENAE (ALLI) - 05/06/2024 1:15 PM MACHINE STRAP BUCKLER From a different site than #1. Collection->Peripheral [...] characteristics have been verified by the [facility] Microbiology Laboratory. For questions about this culture, contact the Microbiology Laboratory at [phone]. Interpretive data was last revised on 24. [...] LARSEN Final Result AMIE RENAE (ALLI) 1 [facility] Department [place] [address] * Blood culture Blood (04/30/2024 8:47 PM MACHINE STRAP BUCKLER) Report Final Report: No growth Comment:Testing performed by : [facility], [address] [facility] [place]., [address] Blood 04/30/2024 8:47 PM MACHINE STRAP BUCKLER 05/01/2024 Narrative AMIE RENAE (ALLI) - 05/05/2024 7:00 AM MACHINE STRAP BUCKLER Collection->Peripheral 1. Blood cultures are incubated for [...] characteristics have been verified by the [facility] Microbiology Laboratory. For questions about this culture, contact the Microbiology Laboratory at [phone]. Interpretive data was last revised on 24. us Guille Wall MD LAB MICROBIOLOGY - GENERAL ORDChely LARSEN Final Result [facility]IE [facility] [place] 1 [facility] Department [place] [address] * MRI Lumbar Spine WO Contrast (04/30/2024 2:26 PM MACHINE STRAP BUCKLER) Anatomical Region Laterality Modality Spine N/A Magnetic Resonan ce 04/30/2024 4:06 PM MACHINE STRAP BUCKLER Narrative 04/30/2024 4:12 PM MACHINE STRAP BUCKLER EXAM DESCRIPTION: MRI LUMBAR SPINE WO CONTRAST [...] Bo Travis M.D. DORIS: DORIS Report ID: [id number] Reading Location: [id number] Procedure Note Bo Travis MD - 04/30/2024 [...] Relevant portions of CT abdomen pelvis with [id number]/19/2025. FINDINGS: SEGMENTATION: No lumbosacral transitional anatomy. The [...] Bo Travis M.D. DORIS: DORIS Report ID: [id number] Reading Location: [id number] Zee Khan MD IMG MRI PROCEDURES Final Result * CT Abdomen Pelvis W Contrast (04/29/2024 9:22 AM MACHINE STRAP BUCKLER) Anatomical Region Laterality Modality Body N/A Computed Tomogra phy 04/29/2024 12:5 1 PM MACHINE STRAP BUCKLER Narrative 04/29/2024 12:58 PM MACHINE STRAP BUCKLER EXAM DESCRIPTION: CT ABDOMEN PELVIS W CONTRAST [...] Alphonso Chaudhry M.D. DORIS: DORIS Report ID: [id number] Reading Location: [id number] Procedure Note Dave Chaudhry MD - 04/29/2024 [...] Alphonso Chaudhry M.D. DORIS: DORIS Report ID: [id number] Reading Location: [id number] Zee Khan MD IMG CT PROCEDURES Final Result * eGFR (04/29/2024 4:53 AM MACHINE STRAP BUCKLER) eGFR >90 >=60 mL/min/1. 73 m2 Comment: [...] last reviewed 2021. Blood 04/29/2024 4:53 AM MACHINE STRAP BUCKLER 04/29/2024 5:18 AM MACHINE STRAP BUCKLER us Zee Khan MD LAB BLOOD ORDERABLES Fin al Result [facility] 1 [facility] Department [place] [address] * Differential, auto (04/29/2024 4:53 AM MACHINE STRAP BUCKLER) Neutrophil abs 2.2 1.5 - 6.5 K/cumm Imm gran abs 0.0 0.0 - 0.1 K/cumm [facility] (ALLI) Lymphocyte abs 1.4 0.8 - 3.3 K/cumm [facility] (ALLI) Monocyte abs 0.6 0.2 - 0.8 K/cumm [facility] (ALLI) Eosinophil abs 0.2 0.0 - 0.5 K/cumm [facility] (ALLI) Basophil abs 0.0 0.0 - 0.1 K/cumm [facility] (LALI) Neutrophil pct 49.5 % [facility] R [facility] [...] revised on 2017. Blood 04/29/2024 4:53 AM MACHINE STRAP BUCKLER 04/29/2024 5:17 AM MACHINE STRAP BUCKLER us Zee Khan MD LAB BLOOD ORDERABLES Fin al Result AMIE [facility] (ALLI) 1 [facility] Department [place] [address] * (ABNORMAL) CBC with auto differential (04/29/2024 4:53 AM MACHINE STRAP BUCKLER) WBC 4.4 3.8 - 9.9 K/cumm Hgb [...] CV 13.4 11.1 - 14.9 % CERNER [facility] (ROMNEY) RDW SD 47.5 35.7 - 48.1 fL AMIE [facility] ([place]) NRBC abs 0.00 0.00 - 0.01 K/cumm AMIE [facility] (ROMNEY) Blood 04/29/2024 4:53 AM MACHINE STRAP BUCKLER 04/29/2024 5:17 AM MACHINE STRAP BUCKLER Zee Khan MD LAB BLOOD ORDERABLES Fin al Result AMIE RENAE (ROMNEY) 1 [facility] [place] [address] * (ABNORMAL) Phosphorus (04/29/2024 4:53 AM MACHINE STRAP BUCKLER) Phosphorus, pl 4.6(H) 2.3 - 4.5 mg/dL Blood 04/29/2024 4:53 AM MACHINE STRAP BUCKLER 04/29/2024 5:18 AM MACHINE STRAP BUCKLER Zee Khan MD LAB BLOOD ORDERABLES Fin al Result Performing Organization Address City/[facility] Co de Phone Number AMIE RENAE (ROMNEY) 1 [facility] [place] [address] * Magnesium (04/29/2024 4:53 AM MACHINE STRAP BUCKLER) Magnesium 1.6 1.4 - 2.5 mg/dL Blood 04/29/2024 4:53 AM MACHINE STRAP BUCKLER 04/29/2024 5:18 AM MACHINE STRAP BUCKLER Zee Khan MD LAB BLOOD ORDERABLES Fin al Result Performing Organization Address City/[facility] Co de Phone Number AMIE RENAE (ROMNEY) 1 [facility] [employer] [address] * Hepatic function panel (04/29/2024 4:53 AM MACHINE STRAP BUCKLER) Bilirubin, total 0.3 0.1 - 1.2 mg/dL [...] [facility] (ALLI) Blood 04/29/2024 4:53 AM MACHINE STRAP BUCKLER 04/29/2024 5:18 AM MACHINE STRAP BUCKLER us Zee Khan MD LAB BLOOD ORDERABLES Fin al Result [facility] (ALLI) 1 [facility] Department [place] [address] * Basic metabolic panel (04/29/2024 4:53 AM MACHINE STRAP BUCKLER) Sodium 139 135 - 145 mmol/L Potassium, pl 3.8 3.3 - 4.9 mmol/L [facility] ([facility] Chloride 104 97 - 110 mmol/L [facility] (ALLI) CO2 25 22 - 32 mmol/L [facility] (ALLI) Anion gap 10 2 - 15 mmol/L [facility] (ALLI) BUN 23 6 - 25 mg/dL [facility] ([facility] Creatinine 0.61 0.60 [...] [facility] (ALLI) Blood 04/29/2024 4:53 AM MACHINE STRAP BUCKLER 04/29/2024 5:18 AM MACHINE STRAP BUCKLER Zee Khan MD LAB BLOOD ORDERABLES Fin al Result Performing Organization Address City/[facility]/ZIP Co de Phone Number AMIE [facility] (ROMNEY) 1 [facility] [place] [address] * Lipase (04/28/2024 1:16 PM MACHINE STRAP BUCKLER) Lipase 90 10 - 99 Units/L Blood 04/28/2024 1:16 PM MACHINE STRAP BUCKLER 04/28/2024 1:47 PM MACHINE STRAP BUCKLER Zee Khan MD LAB BLOOD ORDERABLES Fin al Result Performing Organization Address [facility] de Phone Number [facility] ([place] 1 [facility] [place] [address] * Hepatic function panel (04/28/2024 1:16 PM MACHINE STRAP BUCKLER) Bilirubin, total 0.3 0.1 - 1.2 mg/dL [...] Moderately Hemolyzed Specimen Blood 04/28/2024 1:16 PM MACHINE STRAP BUCKLER 04/28/2024 2:18 PM MACHINE STRAP BUCKLER Zee Khan MD LAB BLOOD ORDERABLES Fin al Result Performing Organization Address City/[facility]/ZIP Co de Phone Number AMIE RENAE (ROMNEY) 1 [facility] [place] [address] * eGFR (04/26/2024 8:41 AM MACHINE STRAP BUCKLER) eGFR >90 >=60 mL/min/1. 73 m2 Comment: [...] last reviewed 2021. Blood 04/26/2024 8:41 AM MACHINE STRAP BUCKLER 04/26/2024 8:57 AM MACHINE STRAP BUCKLER us Maddie White MD LAB BLOOD ORDERABLES Maeve l Result Performing Organization Address City/[facility]/ZIP Co de Phone Number AMIE RENAE (ROMNEY) 1 [facility] [place] [address] * (ABNORMAL) CBC without differential (04/26/2024 8:41 AM MACHINE STRAP BUCKLER) WBC 6.4 3.8 - 9.9 K/cumm Hgb 13.8 11.9 - 15.5 g/dL [facility]IE [facility] (ALLI) Hct 40.1 35.6 - 45.5 % [facility] (ALLI) Plt 115(L) 150 - 400 K/cumm [facility] (ALLI) MPV 10.1 9.1 - 12.3 fL [facility] RBC 4.21 3.90 - 5.20 M/cumm [facility] ([facility] MCV 95.2 81.3 - 96.[address] [facility] (ALLI) MCH 32.8 27.1 - 33.[address] [facility] (ALLI) MCHC 34.4 32.3 - 35.7 g/dL [facility] RDW CV 13.2 11.1 - 14.9 % [facility] RDW SD 45.2 35.7 - 48.[address] [facility] (ALLI) NRBC abs 0.00 0.00 - 0.01 K/cumm [facility] (ALLI) Blood 04/26/2024 8:41 AM MACHINE STRAP BUCKLER 04/26/2024 8:57 AM MACHINE STRAP BUCKLER us Maddie White MD LAB BLOOD ORDERABLES Maeve l Result [facility] (ROMNEY) 1 [facility] Department [place] [address] * Comprehensive metabolic panel (04/26/2024 8:41 AM MACHINE STRAP BUCKLER) Sodium 138 135 - 145 mmol/L Potassium, pl 3.3 3.3 - 4.9 mmol/L [facility] (ALLI) Chloride 103 97 - 110 mmol/L [facility] (ALLI) CO2 22 22 - 32 mmol/L [facility] (ALLI) Anion gap 13 2 - 15 mmol/L [facility] (ALLI) BUN 21 6 - 25 mg/dL [facility] (ALLI) Creatinine 0.61 0.60 - 1.10 mg/dL [facility] ([facility] Glucose 126 70 - 199 mg/dL [facility] (ALLI) Comment: Interpretive Data Fasting [...] [facility] (ALLI) Blood 04/26/2024 8:41 AM MACHINE STRAP BUCKLER 04/26/2024 8:57 AM MACHINE STRAP BUCKLER us Maddie White MD LAB BLOOD ORDERABLES Maeve lopez Result AMIE [facility] (ALLI) 1 [facility] Department [place] [address] * eGFR (04/25/2024 8:53 AM MACHINE STRAP BUCKLER) eGFR >90 >=60 mL/min/1. 73 m2 Comment: [...] last reviewed 2021. Blood 04/25/2024 8:53 AM MACHINE STRAP BUCKLER 04/25/2024 8:55 AM MACHINE STRAP BUCKLER us Chang Mckeon MD LAB BLOOD ORDERABLE S Final Result [facility] (ALLI) 1 [facility] [place] [address] * (ABNORMAL) Differential, auto (04/25/2024 8:53 AM MACHINE STRAP BUCKLER) Neutrophil abs 6.3 1.5 - 6.5 K/cumm [...] revised on 2017. Blood 04/25/2024 8:53 AM MACHINE STRAP BUCKLER 04/25/2024 8:55 AM MACHINE STRAP BUCKLER us Chang Mckeon MD LAB BLOOD ORDERABLE S Final Result [facility] (ALLI) 1 [facility] [place] [address] * (ABNORMAL) CBC with auto differential (04/25/2024 8:53 AM MACHINE STRAP BUCKLER) WBC 7.4 3.8 - 9.9 K/cumm Hgb [...] - 48.1 fL [facility] (ROMNEY) NRBC abs 0.00 0.00 - 0.01 K/cumm [facility] (ROMNEY) Blood 04/25/2024 8:53 AM MACHINE STRAP BUCKLER 04/25/2024 8:55 AM MACHINE STRAP BUCKLER us Chang Mckeon MD LAB BLOOD ORDERABLE S Final Result Performing Organization Address City/[facility] Co de Phone Number [facility] (ROMNEY) 1 [facility] [place] [address] * aPTT (04/25/2024 8:53 AM MACHINE STRAP BUCKLER) aPTT 29 28 - 38 sec [facility] ([place]) Comment: Interpretive Data Heparin therapeutic range: 66.0 - 100.0 seconds. Range based on correlation with therapeutic heparin activity range of 0.3 - 0.7 Units/mL. Current interpretive data was last revised on 2023. Blood 04/25/2024 8:53 AM MACHINE STRAP BUCKLER 04/25/2024 5:58 PM MACHINE STRAP BUCKLER us Maddie White MD LAB BLOOD ORDERABLES Maeve l Result Performing Organization Address [facility] Co de Phone Number [facility] ([place]) 1 [facility] [place] [address] * Protime-INR (04/25/2024 8:53 AM MACHINE STRAP BUCKLER) PT 11.5 9.7 - 13.0 sec [facility] (ROM[place]) INR 1.06 0.90 - 1.20 [facility] ([place]) Comment: Interpretive data Oral anticoagulant therapeutic ranges: Venous thromboembolism prophylaxis or treatment: 2.0-3.0 CARDIOLOGY Standard range: 2.0-3.0 High-intensity range: 2.5-3.5 Refer to indication-specific guidelines for appropriate target ranges for prosthetic heart valve replacement. Current interpretive data was last revised on 2019. Blood 04/25/2024 8:53 AM MACHINE STRAP BUCKLER 04/25/2024 5:58 PM MACHINE STRAP BUCKLER Maddie White MD LAB BLOOD ORDERABLES Maeve l Result Performing Organization Address City/[facility]/ZIP Co de Phone Number AMIE RENAE (ALLI) 1 [place] [address] * Magnesium (04/25/2024 8:53 AM MACHINE STRAP BUCKLER) Pathologist [facility] Magnesium 1.4 1.4 - 2.5 mg/dL Blood 04/25/2024 8:53 AM MACHINE STRAP BUCKLER 04/25/2024 9:56 AM MACHINE STRAP BUCKLER Chang Mckeon MD LAB BLOOD ORDERABLE S Final Result Performing Organization Address [facility] de Phone Number AMIE RENAE (ROMNEY) 1 [place] [address] * (ABNORMAL) Ethanol (04/25/2024 8:53 AM MACHINE STRAP BUCKLER) Pathologist [facility] Ethanol 59(H) <=10 mg/dL Comment: Interpretive Data Legal limit of intoxication > or = 80 mg/dL Levels > or = 400 mg/dL are potentially TOXIC. Current interpretive data was last revised on 2018. Blood 04/25/2024 8:53 AM MACHINE STRAP BUCKLER 04/25/2024 8:55 AM MACHINE STRAP BUCKLER us Chang Mckeon MD LAB BLOOD ORDERABLE S Final Result Performing Organization Address [facility] Co de Phone Number AMIE RENAE (ROMNEY) 1 [facility] [place] [address] * (ABNORMAL) Comprehensive metabolic panel (04/25/2024 8:53 AM MACHINE STRAP BUCKLER) Pathologist [facility] Sodium 134(L) 135 - 145 mmol/L Potassium, pl 3.5 3.3 - 4.9 mmol/L [facility] (ALLI) Chloride 99 97 - 110 mmol/L [facility] (ALLI) CO2 21(L) 22 - 32 [...] Hemolyzed S pecimen Blood 04/25/2024 8:53 AM MACHINE STRAP BUCKLER 04/25/2024 8:55 AM MACHINE STRAP BUCKLER us Chang Mckeon MD LAB BLOOD ORDERABLE S Final Result [facility] (ALLI) 1 [facility] Department [place] [address] * eGFR (04/25/2024 8:33 AM MACHINE STRAP BUCKLER) eGFR >90 >=60 mL/min/1. 73 m2 Comment: [...] last reviewed 2021. Blood 04/25/2024 8:33 AM MACHINE STRAP BUCKLER 04/25/2024 8:41 AM MACHINE STRAP BUCKLER us Jesenia Mckeon MD LAB BLOOD ORDERABLES Final Re sult AMIE RENAE (ROMNEY) 1 [facility] Department of Laboratories [place], [place] [id number] * (ABNORMAL) Drugs of Abuse Screen, Urine without Confirmation (04/25/2024 8:33 AM MACHINE STRAP BUCKLER) Amphetamine, ur Screen Positive, presumptive (A) CutOff [...] 2022. Oxycodone, ur Not Detected CutOff 100ng/mL [facility] (ALLI) Comment: Interpretive Data - Oxycodone: [...] revised on 2017. Urine 04/25/2024 8:33 AM MACHINE STRAP BUCKLER 04/25/2024 8:43 AM MACHINE STRAP BUCKLER Narrative [facility] (ALLI) - 04/25/2024 9:03 AM MACHINE STRAP BUCKLER Drug of Abuse screening is performed by immunoassay for medical purposes only. This is not to be used for Pain Management purposes. us Jesenia Mckeon MD LAB URINE ORDERABLES Final Re sult AMIE RENAE (ROMNEY) 1 [facility] [place] [address] * (ABNORMAL) CBC without differential (04/25/2024 8:33 AM MACHINE STRAP BUCKLER) WBC 7.3 3.8 - 9.9 K/cumm Hgb 14.7 11.9 - 15.5 g/dL [facility] (ALLI) Hct 41.6 35.6 - 45.5 % [facility] (ALLI) Plt 121(L) 150 - 400 K/cumm [facility] (ALLI) MPV 10.1 9.1 - 12.3 fL [facility] (ALLI) RBC 4.53 3.90 - 5.20 M/cumm [facility] (ALLI) MCV 91.8 81.3 - 96.[address] [facility] (ALLI) MCH 32.5 27.1 - 33.[address] [facility] (ALLI) MCHC 35.3 32.3 - 35.7 g/dL [facility] (ALLI) RDW CV 12.9 11.1 - 14.9 % [facility] (ALLI) RDW SD 42.5 35.7 - 48.[address] [facility] (ALLI) NRBC abs 0.00 0.00 - 0.01 K/cumm [facility] (ALLI) Blood 04/25/2024 8:33 AM MACHINE STRAP BUCKLER 04/25/2024 8:41 AM MACHINE STRAP BUCKLER us Jesenia Mckeon MD LAB BLOOD ORDERABLES Final Re sult [facility] (ROMNEY) 1 [facility] [place] [address] * (ABNORMAL) Comprehensive metabolic panel (04/25/2024 8:33 AM MACHINE STRAP BUCKLER) Sodium 135 135 - 145 mmol/L Potassium, pl 3.4 3.3 - 4.9 mmol/L [facility] (ALLI) Chloride 101 97 - 110 mmol/L [facility] (ALLI) CO2 19(L) 22 - 32 mmol/L [facility] (ALLI) Anion gap 15 2 - 15 mmol/L [facility] (ALLI) BUN 13 6 - 25 mg/dL [facility] (ALLI) Creatinine 0.47(L) 0.60 - 1.10 mg/dL [facility] (ALLI) Glucose 156 70 - 199 mg/dL [facility] (ALLI) Comment: Interpretive Data Fasting [...] Hemolyzed S pecimen Blood 04/25/2024 8:33 AM MACHINE STRAP BUCKLER 04/25/2024 8:41 AM MACHINE STRAP BUCKLER Jesenia Mckeon MD LAB BLOOD ORDERABLES Final Re sult [facility] (ALLI) 1 [facility] [place] [address] from Last 3 Months Insurance [employer] [facility] Advance Directives For more information, please contact: [phone] * Full Code (Latest Code Status on File) Date Activated Date Inactivated Comments 06/09/2024 2:35 PM 06/12/2024 5:25 PM * Full Code Date Activated Date Inactivated Comments 04/25/2024 5:41 PM 05/07/2024 7:44 PM Care Teams Milk Handler Relationship Specialty Start Date End Date Bladimir Crowder MD [address] [place] [id number] PCP - General Family Medicine 04/25/24
--- OUTSIDE RECORDS SUMMARY | 2024-07-15 21:28 | XMS_ITS | Clinical Summary ---
Author Organization [facility] Address [facility] [place] [address] Care Team Providers Care Keyboard Operator Name Role Phone Ruma Lemos MD Primary Care Provider [phone] Allergies No known active allergies Medications gabapentin (NEURONTIN) 300 MG capsule Take 400 mg by mouth 3 (three) times daily. 11/03/2023 Active Active Problems Problem Noted Date Diagnosed Date Alcoholic pancreatitis (HHS/HCC) 01/13/2023 Pancreatitis (HHS/HCC) 01/11/2023 Encounters Date Type Department Care Team Description 07/07/2024 9:48 PM CDT - 07/07/2024 11:59 PM CDT Hospital Encounter [facility] [address] [place] [address] Verna Raymundo MD Discharge Disposition: Home or Self Care (Routine Discharge) 07/07/2024 Travel 05/29/2024 Transcribe Orders [address] [place] [address] Verna Raymundo MD 05/09/2024 Transcribe Orders [facility] [address] [place] [address] Verna Raymundo MD from Last 3 Months Family History Relation [...] place to sleep or slept in a halfway (including now)? Yes 01/11/2023 Comments No Sex and Gender Information Value Date Recorded Sex Assigned at Female 05/25/2024 11:14 AM NURSE PLASTICS Legal Sex Female 2:39 PM CDT Gender Identity Not on file Sexual Orientation Not on file Last Filed Vital Signs Vital Sign Reading Time Taken Comments Blood Pressure 139/79 03/18/2024 4:25 PM NURSE PLASTICS Pulse 75 03/18/2024 4:25 PM NURSE PLASTICS Temperature 36.4 C (97.5 F) 03/18/2024 3:16 PM NURSE PLASTICS Respiratory Rate 18 03/18/2024 4:25 PM NURSE PLASTICS Oxygen Saturation 98% 03/18/2024 4:25 PM NURSE PLASTICS Inhaled Oxygen Concentration - - Weight 68 kg (150 lb) 03/18/2024 3:16 PM NURSE PLASTICS Height 162.6 cm (5' 4 ) 03/18/2024 3:16 PM NURSE PLASTICS Body Mass Index 25.75 03/18/2024 3:16 PM NURSE PLASTICS Plan of Treatment Health Maintenance Due Date Last Done Comments Colorectal Cancer Screening Colonoscopy (10 Years) 1973 Annual Physical 1976 Pneumococcal Vaccine: Pediat rics (0 to 5 Years) and At-Risk Patients (6 to 64 Years) (1 of 2 - PCV) 1979 Hepatitis C 1991 DTaP, Tdap and Td Vaccines ( 1 - Tdap) 1992 Hepatitis B Vaccines (1 of 3 - 19+ 3-dose series) 1992 Zoster Vaccines (1 of 2) 2023 COVID-19 Vaccine (1 - 2023-2 5 season) 2023 Mammogram Screening 03/29/2026 03/29/2024 Meningococcal B Vaccine Aged Out No l onger eligible based on patient's age to complete this topic Meningococcal Vaccine Aged Out No nancy ta eligible based on patient's age to complete this topic RSV Immunizations Under 20 Months Aged Out No longer eligible based on patient's age to complete this topic Procedures Procedure Name Priority Date/Time Associated Diagnosis Comments POLYSOMNOGRAPHY 4 OR MORE PARAMETERS Routine 07/07/2024 9:48 PM CDT Snoring MG SCREENING W BIRGIT LUCIAN DIGI Routine 03/29/2024 10:02 AM NURSE PLASTICS Visit for screening mammogram from Last 3 Months or Most Recently Relevant to Health Maintenance Results * Diagnostic PSG (78398, 83290) (07/07/2024 9:48 PM CDT) 07/07/2024 9:48 PM CDT Narrative ESCRIPTION - 07/10/2024 12:32 PM CDT Patient Name: LATRICE RITCHIE Date of : 1975 Account: [id number] Facility: [facility] Location: [facility] Date of Service: 07/07/2024 Sleep Study PROCEDURE: Sleep study plus CPAP titration. ORDERED BY: Gene Raymundo MD. [facility] INDICATION: To assess for sleep apnea. A 49-year-old female, body weight 153 pounds, height of 5 feet 4 inches, BMI of 26, has snoring, hypersomnia, ESS 13/24. METHOD USED: [facility] method. SLEEP SUMMARY: Patient was monitored from 10:45 p.m. until 6:03 in the morning. Time in bed was 438 minutes, sleep time was 430 minutes, sleep efficiency 97%. Stage I was 1%, stage II was 83%, stage REM 16%, REM latency 92 minutes. Patient spent 87% supine. CARDIAC SUMMARY: Awake heart rate was 65 beats per minute. Average sleep heart rate was 63 beats per minute. MOVEMENT SUMMARY: Periodic limb movements were not identified on this study. RESPIRATORY SUMMARY: During diagnostic portion, patient had frequent obstructive hypopneas, AHI 18 an hour with the lowest saturation of 78%. Started on CPAP utilizing C-Flex level 3 via Respironics Meme View medium full face mask at pressure of 4, raised to 6 with improvement of the apneas, saturation was above 89%. Pressure was raised to 7. AHI was 6 an hour due to hypopneas, especially during REM sleep. Pressure was raised to 8, 10. With a pressure of 10 CWP, no obstructive apneas noted, AHI was 2 an hour, saturation above 87%. IMPRESSION: 1. Moderate obstructive sleep apnea-hypopnea syndrome, AHI 18 an hour with the lowest saturation of 78%. 2. Patient did well on CPAP 10 CWP. No obstructive apnea was noted. AHI was 2 an hour. Saturation was above 87%. RECOMMENDATIONS: 1. It would be reasonable to start patient at a little higher pressure, possibly CPAP 11 CWP utilizing C-Flex level 3 via Meme View medium full face mask with close followup including downloads and [id number] evaluation. 2. General recommendation to treat sleep apnea, including assessment to upper airways, and thyroid function. Safety in terms of driving and working around machineries till sleep apnea treated, and hypersomnia resolved Education about risks and benefits of treating sleep apnea, and close follow up. Avoid sedatives and hypnotics Clinical correlation is required. Keiko Raymundo MD [facility] Diplomate, [place] Board of sleep [employer] #[id number] /NATALIA A copy of this report has been sent to: RUMA LEMOS MD([employer]) Procedure Note Verna Raymundo MD - 07/10/2024 Patient Name: LATRICE RITCHIE Date of : 1975 Account: [id number] Facility: [facility] Location: [facility] Date of Service: 07/07/2024 Sleep Study PROCEDURE: Sleep study plus CPAP titration. ORDERED BY: Gene Raymundo MD. [facility] INDICATION: To assess for sleep apnea. A 49-year-old female, body weight 153 pounds, height of 5 feet 4 inches, BMI of 26, has snoring, hypersomnia, ESS 13/24. METHOD USED: [facility] method. SLEEP SUMMARY: Patient was monitored from 10:45 p.m. until 6:03 in the morning. Time in bed was 438 minutes, sleep time was 430 minutes, sleep efficiency 97%. Stage I was 1%, stage II was 83%, stage REM 16%, REM latency 92 minutes. Patient spent 87% supine. CARDIAC SUMMARY: Awake heart rate was 65 beats per minute. Average sleep heart rate was 63 beats per minute. MOVEMENT SUMMARY: Periodic limb movements were not identified on this study. RESPIRATORY SUMMARY: During diagnostic portion, patient had frequent obstructive hypopneas, AHI 18 an hour with the lowest saturation of 78%. Started on CPAP utilizing C-Flex level 3 via Respironics Meme View medium full face mask at pressure of 4, raised to 6 with improvement of the apneas, saturation was above 89%. Pressure was raised to 7. AHI was 6 an hour due to hypopneas, especially during REM sleep. Pressure was raised to 8, 10. With a pressure of 10 CWP, no obstructive apneas noted, AHI was 2 an hour, saturation above 87%. IMPRESSION: 1. Moderate obstructive sleep apnea-hypopnea syndrome, AHI 18 an hour with the lowest saturation of 78%. 2. Patient did well on CPAP 10 CWP. No obstructive apnea was noted. AHI was 2 an hour. Saturation was above 87%. RECOMMENDATIONS: 1. It would be reasonable to start patient at a little higher pressure, possibly CPAP 11 CWP utilizing C-Flex level 3 via Meme View medium full face mask with close followup including downloads and [id number]-[id number]-[id number] evaluation. 2. General recommendation to treat sleep apnea, including assessment toupper airways, and thyroid function. Safety in terms of driving and working around machineries till sleep apneatreated, and hypersomnia resolved Education about risks and benefits of treating sleep apnea, and closefollow up. Avoid sedatives and hypnotics Clinical correlation is required. Keiko Raymundo MD FCCP Diplomate, [place] Board of sleep Medicine #[id number] /NATALIA A copy of this report has been sent to: RUMA LEMOS MD([employer]) Darinluther Raymundo MD [facility] ORDERABLE S Final Result ESCRIPTION * MG SCREENING W BIRGIT LUCIAN GALAN (03/29/2024 10:02 AM NURSE PLASTICS) Anatomical Region Laterality Modality Breast Bilateral Mammography 03/29/2024 11:5 4 AM NURSE PLASTICS Impressions 03/29/2024 11:55 AM NURSE PLASTICS IMPRESSION: No mammographic evidence of malignancy. Recommendation: 1: Routine Screening Bilateral in 1 Year Assessment: ACR BI-RADS 2 - BENIGN FINDING(S) Ordered By: BLADIMIR LATHAM Interpreted By: Varun Quevedo MD, 03/29/2024 11:54 AM Narrative 03/29/2024 11:55 AM NURSE PLASTICS [address] [place] [address] Examination: Digital screening mammogram with CAD. [...] Bladimir Latham MD MAMMO Final Resul t from Last 3 Months or Most Recently Relevant to Health Maintenance Insurance [facility] [facility] [place] [address] AETNA Advance Directives * Full Code (Latest Code Status on File) Date Activated Date Inactivated Comments 01/11/2023 7:19 PM 01/14/2023 10:44 PM Care Teams Keyboard Operator Relationship Specialty Start Date End Date Ruma Lemos MD [address] [place] [id number] PCP - General FAMILY PRACTICE 03/18/24
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
--- OUTSIDE RECORDS SUMMARY | 2024-07-15 21:28 | XMS_ITS ---
Author Organization [facility] Address [address] [place] [address] Care Team Providers Care Benefits Processor Name Role Phone Holli Keith Primary Care Provider Lesly Valenzuela Unavailable REASON FOR VISIT in the moment support Social History Sex Assigned At : Social History Observation Description Sex Assigned At Female Encounters Encounter Location Date Provider Diagnosis [facility] [address] [place] [address] 06/13/2024 Lesly Valenzuela Bipolar disorder F31.9 and Alcohol use disorder F10.99 Assessments Encounter Date Diagnosis (ICD Code) Assessment Notes Treatment Notes Treatment Clinical Notes Section Notes 06/13/2024 Bipolar disorder (ICD-10 - F31.9) Self reported diagnosis. Scheduled for full psychiatric eval. 06/13/2024 Alcohol use disorder (ICD-10 - F10.99) Plan Of Treatment No Information Progress Notes * Latrice RITCHIEDOB:1975 ([age] yo F)Acc No.[id number]:06/13/2024 Patient: Latrice DOWLING Provider: Gene Valenzuela :1975 A ge:49 Y S ex:Female Date:06/13/2024 Phone: Address:[address] [place] [address] Pcp:Holli Keith Subjective: * Chief Complaints: * I n the moment support * HPI: B ehavioral Health Treatment: Sugar Trucker met with Latrice while she was in [facility], client reported stressors related to be in Residential unit and feeling upset and like she was being disrespected. Sugar Trucker validated client's feelings and asked client if she could provide more information regarding what may have influenced these feelings. Client feels residential staff lied to her and that when asking questions would be shamed for not knowing the answers. Sugar Trucker apologized that client felt that way at the unit and tried to encourage client to find appropriate was to communicate with staff on the unit to create a better relationship and learn conflict resolution skills. At this time, client is not agreeable to trying any additional skills or skill building and would like to discharge from the unit. Sugar Trucker validated client's right to choose to leave the unit and let her know she would need to let them know when she gets back to the unit. * Medical History: * Surgical History: * Hospitalization/Major Diagno stic Procedure: * Medications: Objective: * Vitals: * Examination: G eneral Examination: D uring session, database report writer utilized Person-Centered Therapy techniques with unconditional positive regard, empathy, reflection, validation, active listening and summarizing. Assessment: * Assessment: 1. B ipolar disorder - F31.9 (Primary) N otes :Self reported diagnosis. Scheduled for full psychiatric eval. 2 . A lcohol use disorder - F10.99 Plan: * Treatment: * Procedure Codes: 9 0832 PSYTX PT&/FAMILY 30 MINUTES, Modifiers: AJ * * Electronically co-signed by Lien Strong LCSW, [id number] on 06/28/2024 at 12:59 PM CDT Sign off status: Completed true * Provider: Gene Valenzuela Date: 0 06/13/2024 Generated for Frank meier/Chencho/Manoj on: 0 07/15/2024 09:28 PM CDT History and Physical Notes * Examination Category Sub-Category Detail Notes Category Not es General Examination During s ession, database report writer utilized Person-Centered Therapy techniques with unconditional positive regard, empathy, reflection, validation, active listening and summarizing.
--- OUTSIDE RECORDS SUMMARY | 2024-07-15 21:28 | XMS_ITS ---
Author Organization [facility] Address [address] [place] [address] Care Team Providers Care Transformer Molder Name Role Phone Holli Keith Primary Care Provider Ana Zafar Unavailable [phone] REASON FOR VISIT appt check in Social History Sex Assigned At : Social History Observation Description Sex Assigned At Female Encounters Encounter Location Date Provider Diagnosis [address] [place] [address] 06/14/2024 Ana Zafar Plan Of Treatment No Information Progress Notes * Latrice RITCHIEDOB:1975 ([age] yo F)Acc No.[id number]:06/14/2024 Patient: Mary Jane NARANJOOLatrice :1975 A ge:49 Y S ex:Female Phone: Address:[address] [place] [address] * true * Date: Generated for Brennani renea/Chencho/eTransmitting on: 0 07/15/2024 09:27 PM CDT
[2024-07-15 21:38] VITALS: BP 165/114; PULSE 73; RESP 16; TEMP 36.4; O2SAT 98
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
--- NOTE | 2024-07-15 21:55 | PC.NURSE ---
DR IRAHETA AT THE BEDSIDE. ROCAEL OBANDO BEAN DUMPER IN ROOM
--- OUTSIDE RECORDS SUMMARY | 2024-07-15 22:39 | XMS_ITS | Clinical Summary ---
Author Organization [facility] Address [facility] [place] [address] Care Team Providers Care Supervisor Blasting Name Role Phone Ruma Lemos MD Primary Care Provider [phone] Allergies No known active allergies Medications gabapentin (NEURONTIN) 300 MG capsule Take 400 mg by mouth 3 (three) times daily. 11/03/2023 Active Active Problems Problem Noted Date Diagnosed Date Alcoholic pancreatitis (HHS/HCC) 01/13/2023 Pancreatitis (HHS/HCC) 01/11/2023 Encounters Date Type Department Care Team Description 07/07/2024 9:48 PM CDT - 07/07/2024 11:59 PM CDT Hospital Encounter [facility] [address] [place] [address] Verna Raymundo MD Discharge Disposition: Home or Self Care (Routine Discharge) 07/07/2024 Travel 05/29/2024 Transcribe Orders [address] [place] [address] Verna Raymundo MD 05/09/2024 Transcribe Orders [facility] [address] [place] [address] Verna Raymundo MD from Last 3 Months [...] place to sleep or slept in a fci (including now)? Yes 01/11/2023 Comments No Sex and Gender Information Value Date Recorded Sex Assigned at Female 05/25/2024 11:14 AM NEWSPERSON Legal Sex Female 2:39 PM CDT Gender Identity Not on file Sexual Orientation Not on file Last Filed Vital Signs Vital Sign Reading Time Taken Comments Blood Pressure 139/79 03/18/2024 4:25 PM NEWSPERSON Pulse 75 03/18/2024 4:25 PM NEWSPERSON Temperature 36.4 C (97.5 F) 03/18/2024 3:16 PM NEWSPERSON Respiratory Rate 18 03/18/2024 4:25 PM NEWSPERSON Oxygen Saturation 98% 03/18/2024 4:25 PM NEWSPERSON Inhaled Oxygen Concentration - - Weight 68 kg (150 lb) 03/18/2024 3:16 PM NEWSPERSON Height 162.6 cm (5' 4 ) 03/18/2024 3:16 PM NEWSPERSON Body Mass Index 25.75 03/18/2024 3:16 PM NEWSPERSON Plan of Treatment Health Maintenance Due Date [...] BIRGIT LUCIAN DIGI Routine 03/29/2024 10:02 AM NEWSPERSON Visit for screening mammogram from Last 3 Months or Most Recently Relevant to Health Maintenance Results * Diagnostic PSG ([id number], [id number]) (07/07/2024 9:48 PM CDT) 07/07/2024 9:48 PM CDT Narrative ESCRIPTION - 07/10/2024 12:32 PM CDT Patient Name: LATRICE RITCHIE Date of : 1975 Account: [id number] Facility: [facility] Location: [facility] Date of Service: 07/07/2024 Sleep Study PROCEDURE: Sleep study plus CPAP titration. ORDERED BY: Gene Raymundo MD. [facility] INDICATION: To assess for sleep apnea. A 49-year-old female, body weight 153 pounds, height of 5 feet 4 inches, BMI of 26, has snoring, hypersomnia, ESS 13/24. METHOD USED: [facility] method. SLEEP SUMMARY: Patient was monitored [...] mask with close followup including downloads and [id number] evaluation. 2. General recommendation to treat sleep apnea, including assessment to upper airways, and thyroid function. Safety in terms of driving and working around machineries till sleep apnea treated, and hypersomnia resolved Education about risks and benefits of treating sleep apnea, and close follow up. Avoid sedatives and hypnotics Clinical correlation is required. Keiko Raymundo MD [facility] Diplomate, [place] [employer] of [employer] #[id number] /NATALIA A copy of this report has been sent to: RUMA LEMOS MD(Autofax) Procedure Note Verna Raymundo MD - 07/10/2024 Patient Name: LATRICE RITCHIE Date of : 1975 Account: [id number] Facility: [facility] Location: [facility] Date of Service: 07/07/2024 Sleep Study PROCEDURE: Sleep study plus CPAP titration. ORDERED BY: Gene Raymundo MD. [facility] INDICATION: To assess for sleep apnea. A 49-year-old female, body weight 153 pounds, height of 5 feet 4 inches, BMI of 26, has snoring, hypersomnia, ESS 13/24. METHOD USED: [facility] method. SLEEP SUMMARY: Patient was monitored [...] mask with close followup including downloads and [id number] evaluation. 2. General recommendation to treat sleep apnea, including assessment toupper airways, and thyroid function. Safety in terms of driving and working around machineries till sleep apneatreated, and hypersomnia resolved Education about risks and benefits of treating sleep apnea, and closefollow up. Avoid sedatives and hypnotics Clinical correlation is required. Keiko Raymundo MD FCCP Diplomate, [place] Board of sleep Medicine #[id number] /NATALIA A copy of this report has been sent to: RUMA LEMOS MD(Fylet) Darinluther Raymundo MD [facility] ORDERABLE S Final Result ESCRIPTION * MG SCREENING W BIRGIT LUCIAN GALAN (03/29/2024 10:02 AM NEWSPERSON) Anatomical Region Laterality Modality Breast Bilateral Mammography 03/29/2024 11:5 4 AM NEWSPERSON Impressions 03/29/2024 11:55 AM NEWSPERSON IMPRESSION: No mammographic evidence of malignancy. Recommendation: 1: Routine Screening Bilateral in 1 Year Assessment: ACR BI-RADS 2 - BENIGN FINDING(S) Ordered By: BLADIMIR LATHAM Interpreted By: Varun Quevedo MD, 03/29/2024 11:54 AM Narrative 03/29/2024 11:55 AM NEWSPERSON [address] [place] [address] Examination: Digital screening mammogram with CAD. [...] Recently Relevant to Health Maintenance Insurance MEDICAID AET[employer] Advance Directives * Full Code (Latest Code Status on File) Date Activated Date Inactivated Comments 01/11/2023 7:19 PM 01/14/2023 10:44 PM Care Teams Supervisor Blasting Relationship Specialty Start Date End Date Ruma Lemos MD [address] [place] [phone] PCP - General FAMILY PRACTICE 03/18/24
--- OUTSIDE RECORDS SUMMARY | 2024-07-15 22:39 | XMS_ITS | Clinical Summary ---
Author Organization [facility] Address [address] [place] [address] Care Team Providers Care Telephoto Installer Name Role Phone Bladimir Crowder MD Primary Care Provider [phone] Allergies No known active allergies Medications gabapentin [...] 06/09/2024 Assessment & Plan (06/09/2024 3:43 PM DX BOARD OPERATOR): Chronic hx. Managed w/ Creon TID. Pt has non-specific abdominal pain in the setting of alcohol withdrawal. Amylase and lipase are normal. Acute pancreatitis is unlikely. Plan: - Continue Creon - Monitor IV fluids - If abdominal pain persists or worsens, consider CT abdomen Cirrhosis 06/09/2024 Assessment & Plan (06/09/2024 3:33 PM DX BOARD OPERATOR): Chronic hx. LFTs are normal. PT, PTT, and INR are normal. Currently stable Plan: - Monitor for symptoms Unspecified mood disorder 05/02/2024 Alcohol withdrawal syndrome without complication 04/25/2024 Assessment & Plan (06/09/2024 3:42 PM DX BOARD OPERATOR): 49 y/o female w/ alcohol use disorder, [...] Type Department Care Team Description 06/12/2024 Documentation [facility] Warm [facility] Off [facility] [address] [place], [place] [phone] Bruno Jefferson 06/11/2024 Documentation [facility] 1 [place] [phone] Latrice Dumont 06/10/2024 Documentation [facility] 1 [place] [phone] Latrice Dumont 06/09/2024 11:27 AM DX BOARD OPERATOR - 06/12/2024 1:20 PM DX BOARD OPERATOR Hospital Encounter [facility] Medical Care 1 [place] [address] Jesenia Mckeon MD Okonkwo, Kasiemobi Bernice, MD Richards, Davi Simmons Jr., MD Alcohol withdrawal syndrome without complication (HCC) (Primary Dx); Chronic pancreatitis, unspecified pancreatitis type (HCC) [K86.1] Discharge Disposition: Discharge to not defined facility 06/09/2024 8:20 AM DX BOARD OPERATOR Lab [facility] 1 [place] [address] 06/09/2024 [facility] Enrollment [facility] [address] [place] [phone] Latrice Dumont 05/28/2024 [facility] Initial Eligibility [facility] [address] [place] [phone] Bo Rojas 05/17/2024 [facility] Outreach [facility] [address] [place] [phone] Hilario, Janaroseann Benitez 05/08/2024 Telephone [facility] [address] [phone] Shara Yates DO 05/07/2024 Documentation [facility] [address] [place] [phone] Latrice Dumont 05/05/2024 Documentation [facility] [address] [place] [phone] Hilario, Janaroseann Benitez 05/03/2024 Documentation [facility] [address] [place] [phone] Hilario, Jana EValentín 05/02/2024 Documentation [facility] 1 [place] [phone] Latrice Dumont 05/01/2024 Documentation [facility] 1 [place] [phone] Hilario, Jana EValentín 04/30/2024 Documentation [facility] [address] [place] [phone] Latrice Dumont 04/29/2024 Documentation [facility] [address] [place] [address] Latrice Dumont 04/27/2024 [facility] Enrollment [facility] [address] [place] [address] Hilario, Jana E. 04/25/2024 10:50 AM DX BOARD OPERATOR - 05/07/2024 3:39 PM DX BOARD OPERATOR Hospital Encounter [facility] Medical Care [address] [place] [phone] Maddie White MD Sargsyan, Narine, MD Sinha, Chandni, MD Abegunde, MD Suzy Velazquez, Shara Serrano, DO Alcohol withdrawal syndrome without complication (HCC) (Primary Dx); Unspecified mood disorder Discharge Disposition: Discharge to home or self care 04/25/2024 8:30 AM DX BOARD OPERATOR Lab [address] [phone] 04/25/2024 Documentation [facility] [address] [place] [address] Hilario, Jana E. 04/25/2024 Documentation [facility] [address] [place] [address] Hilario, Jana E. 04/23/2024 Documentation [facility] [address] [place] [address] Latrice Dumont from Last 3 Months Social [...] Comments Blood Pressure 128/74 06/12/2024 11:09 AM DX BOARD OPERATOR Pulse 67 06/12/2024 11:09 AM DX BOARD OPERATOR Temperature 36.4 C (97.5 F) 06/12/2024 11:09 AM DX BOARD OPERATOR Respiratory Rate 15 06/12/2024 11:09 AM DX BOARD OPERATOR Oxygen Saturation 97% 06/12/2024 11:09 AM DX BOARD OPERATOR Inhaled Oxygen Concentration - - Weight 69.4 kg (153 lb) 06/09/2024 11:47 AM DX BOARD OPERATOR Height 165.1 cm (5' 5 ) 06/09/2024 11:47 AM DX BOARD OPERATOR Body Mass Index 25.46 06/09/2024 11:47 AM DX BOARD OPERATOR Plan of Treatment Health Maintenance Due Date [...] Diagnosis Comments EGFR Routine 06/12/2024 5:10 AM DX BOARD OPERATOR DIFFERENTIAL AUTO Routine 06/12/2024 5:1 0 AM DX BOARD OPERATOR CBC WITH AUTO DIFFERENTIAL Routine 06/12/2024 5:10 AM DX BOARD OPERATOR BASIC METABOLIC PANEL Routine 06/12/2024 5:10 AM DX BOARD OPERATOR CLINICAL PATHOLOGY REPORT Routine 06/11/2024 2:24 [address] OPER[address] CT ABDOMEN PELVIS W CONTRAST ED 06/11/2024 1:27 PM DX BOARD OPERATOR ANTI-DOUBLE STRANDED DNA ANTIBODIES Routine 06/11/2024 11:59 AM DX BOARD OPERATOR TONY QUALITATIVE WITH REFLEX TO TONY QUANTITATIVE Routine 06/11/2024 11:59 AM DX BOARD OPERATOR FOLATE Routine 06/11/2024 11:59 AM DX BOARD OPERATOR VITAMIN B12 Routine 06/11/2024 11:59 AM DX BOARD OPERATOR HIV 1/2 ANTIBODY PLUS P24 ANTIGEN Routine 06/11/2024 11:59 AM DX BOARD OPERATOR HEPATITIS PANEL, ACUTE Routine 06/11/2024 11:59 AM DX BOARD OPERATOR SLIDE REVIEW - PATHOLOGIST Routine 06/11/2024 5:34 AM DX BOARD OPERATOR EGFR Routine 06/11/2024 5:34 AM DX BOARD OPERATOR DIFFERENTIAL AUTO Routine 06/11/2024 5:3 4 AM DX BOARD OPERATOR CBC WITH AUTO DIFFERENTIAL Routine 06/11/2024 5:34 AM DX BOARD OPERATOR BASIC METABOLIC PANEL Routine 06/11/2024 5:34 AM DX BOARD OPERATOR POCT GLUCOSE DEVICE Routine 06/11/2024 3 :01 AM DX BOARD OPERATOR EGFR STAT 06/10/2024 7:50 AM DX BOARD OPERATOR DIFFERENTIAL AUTO STAT 06/10/2024 7:5 0 AM DX BOARD OPERATOR BASIC METABOLIC PANEL STAT 06/10/2024 7:50 AM DX BOARD OPERATOR CBC WITH AUTO DIFFERENTIAL STAT 06/10/2024 7:50 AM DX BOARD OPERATOR ETHANOL STAT 06/09/2024 2:55 PM DX BOARD OPERATOR APTT STAT 06/09/2024 2:55 PM DX BOARD OPERATOR PROTIME-INR STAT 06/09/2024 2:55 PM DX BOARD OPERATOR LIPASE STAT 06/09/2024 2:55 PM DX BOARD OPERATOR AMYLASE STAT 06/09/2024 2:55 PM DX BOARD OPERATOR EGFR STAT 06/09/2024 8:33 AM DX BOARD OPERATOR DRUGS OF ABUSE SCREEN, URINE WITHOUT CONFIRMATION STAT 06/09/2024 8:33 AM DX BOARD OPERATOR CBC WITHOUT DIFFERENTIAL STAT 06/09/2024 8:33 AM DX BOARD OPERATOR COMPREHENSIVE METABOLIC PANEL STAT 06/09/2024 8:33 AM DX BOARD OPERATOR EGFR Routine 05/05/2024 12:12 PM DX BOARD OPERATOR CBC WITHOUT DIFFERENTIAL Routine 05/05/2024 12:12 PM DX BOARD OPERATOR COMPREHENSIVE METABOLIC PANEL Routine 05/05/2024 12:12 PM DX BOARD OPERATOR TRANSTHORACIC ECHO (TTE) COMPLETE W DOPPLER/CF WO CONTRAST Routine 05/04/2024 7:30 AM DX BOARD OPERATOR US UPPER EXTREMITY RIGHT LIMITED IP Routine 05/03/2024 2:05 PM DX BOARD OPERATOR BLOOD CULTURE Routine 05/03/2024 1:35 PM DX BOARD OPERATOR BLOOD CULTURE Routine 05/03/2024 11:25 AM DX BOARD OPERATOR TROPONIN T HIGH-SENSITIVITY 6-HOUR Timed 05/02/2024 11:01 AM DX BOARD OPERATOR TROPONIN T HIGH-SENSITIVITY 2-HOUR Timed 05/02/2024 6:37 AM DX BOARD OPERATOR TROPONIN T HIGH-SENSITIVITY SERIES (BASELINE, 2HR, 4HR, 6HR) Routine 05/02/2024 4:17 AM DX BOARD OPERATOR ECG 12-LEAD Routine 05/02/2024 2:17 AM DX BOARD OPERATOR US ABDOMEN LIMITED IP Routine 05/01/2024 3: 50 PM DX BOARD OPERATOR APTT STAT 05/01/2024 2:50 PM DX BOARD OPERATOR PROTIME-INR STAT 05/01/2024 2:50 PM DX BOARD OPERATOR URINALYSIS, MICROSCOPIC ONLY Routine 05/01/2024 10:44 AM DX BOARD OPERATOR URINALYSIS AND REFLEX TO MICROSCOPIC AND CULTURE Routine 05/01/2024 10:44 AM DX BOARD OPERATOR RESPIRATORY PATHOGEN PANEL Routine 05/01/2024 10:04 AM DX BOARD OPERATOR XR CHEST 1 VIEW IP Routine 05/01/2024 9:53 AM DX BOARD OPERATOR EGFR STAT 05/01/2024 8:52 AM DX BOARD OPERATOR LACTATE STAT 05/01/2024 8:52 AM DX BOARD OPERATOR COMPREHENSIVE METABOLIC PANEL STAT 05/01/2024 8:52 AM DX BOARD OPERATOR CBC WITHOUT DIFFERENTIAL STAT 05/01/2024 8:52 AM DX BOARD OPERATOR BLOOD CULTURE Routine 04/30/2024 8:47 PM DX BOARD OPERATOR BLOOD CULTURE Routine 04/30/2024 8:47 PM DX BOARD OPERATOR MRI LUMBAR SPINE WO CONTRAST IP Routine 04/30/2024 2:26 PM DX BOARD OPERATOR CT ABDOMEN PELVIS W CONTRAST IP Routine 04/29/2024 9:22 AM DX BOARD OPERATOR EGFR Routine 04/29/2024 4:53 AM DX BOARD OPERATOR DIFFERENTIAL AUTO Routine 04/29/2024 4:5 3 AM DX BOARD OPERATOR PHOSPHORUS Routine 04/29/2024 4:53 AM DX BOARD OPERATOR MAGNESIUM Routine 04/29/2024 4:53 AM DX BOARD OPERATOR HEPATIC FUNCTION PANEL Routine 04/29/2024 4:53 AM DX BOARD OPERATOR CBC WITH AUTO DIFFERENTIAL Routine 04/29/2024 4:53 AM DX BOARD OPERATOR BASIC METABOLIC PANEL Routine 04/29/2024 4:53 AM DX BOARD OPERATOR HEPATIC FUNCTION PANEL Add-On 04/28/2024 1:16 PM DX BOARD OPERATOR LIPASE STAT 04/28/2024 1:16 PM DX BOARD OPERATOR EGFR Routine 04/26/2024 8:41 AM DX BOARD OPERATOR COMPREHENSIVE METABOLIC PANEL Routine 04/26/2024 8:41 AM DX BOARD OPERATOR CBC WITHOUT DIFFERENTIAL Routine 04/26/2024 8:41 AM DX BOARD OPERATOR APTT STAT 04/25/2024 8:53 AM DX BOARD OPERATOR PROTIME-INR STAT 04/25/2024 8:53 AM DX BOARD OPERATOR MAGNESIUM Add-On 04/25/2024 8:53 AM DX BOARD OPERATOR EGFR STAT 04/25/2024 8:53 AM DX BOARD OPERATOR DIFFERENTIAL AUTO STAT 04/25/2024 8:5 3 AM DX BOARD OPERATOR ETHANOL STAT 04/25/2024 8:53 AM DX BOARD OPERATOR COMPREHENSIVE METABOLIC PANEL STAT 04/25/2024 8:53 AM DX BOARD OPERATOR CBC WITH AUTO DIFFERENTIAL STAT 04/25/2024 8:53 AM DX BOARD OPERATOR EGFR STAT 04/25/2024 8:33 AM DX BOARD OPERATOR DRUGS OF ABUSE SCREEN, URINE WITHOUT CONFIRMATION Routine 04/25/2024 8:33 AM DX BOARD OPERATOR CBC WITHOUT DIFFERENTIAL STAT 04/25/2024 8:33 AM DX BOARD OPERATOR COMPREHENSIVE METABOLIC PANEL STAT 04/25/2024 8:33 AM DX BOARD OPERATOR from Last 3 Months Results * eGFR (06/12/2024 5:10 AM DX BOARD OPERATOR) eGFR >90 >=60 mL/min/1. 73 m2 Comment: [...] last reviewed 2021. Blood 06/12/2024 5:10 AM DX BOARD OPERATOR 06/12/2024 5:38 AM DX BOARD OPERATOR us Dana Maradiaga MD LAB BLOOD ORDERABLE S Final Result [facility] ([place]) 1 [facility] [place] [address] * (ABNORMAL) Differential, auto (06/12/2024 5:10 AM DX BOARD OPERATOR) Neutrophil abs 1.4(L) 1.5 - 6.5 K/cumm [...] revised on 2017. Blood 06/12/2024 5:10 AM DX BOARD OPERATOR 06/12/2024 5:38 AM DX BOARD OPERATOR Dana Maradiaga MD LAB BLOOD ORDERABLE S Final Result [facility] ([place]) 1 [facility] [place] [address] * (ABNORMAL) CBC with auto differential (06/12/2024 5:10 AM DX BOARD OPERATOR) WBC 2.8(L) 3.8 - 9.9 K/cumm Hgb [...] [facility] ([place]) Blood 06/12/2024 5:10 AM DX BOARD OPERATOR 06/12/2024 5:38 AM DX BOARD OPERATOR Dana Maradiaga MD LAB BLOOD ORDERABLE S Final Result [facility] ([place]) 1 [facility] [place] [address] * (ABNORMAL) Basic metabolic panel (06/12/2024 5:10 AM DX BOARD OPERATOR) Pathologist [facility] Sodium 141 135 - 145 mmol/L Potassium, pl 3.7 3.3 - 4.9 mmol/L [facility] ([place]) Chloride 107 97 - 110 mmol/L [facility] ([place]) CO2 21(L) 22 - 32 mmol/L [facility] ([place]) Anion gap 13 2 - 15 mmol/L [facility] BUN 15 6 - 25 mg/dL [facility] ([place] Creatinine 0.61 0.60 - 1.10 mg/dL [facility] ([place]) Glucose 109 70 - 199 mg/dL [facility] ([place]) Comment: Interpretive Data Fasting glucose [...] 2022. Calcium 9.0 8.5 - 10.3 mg/dL [facility] ([place]) Blood 06/12/2024 5:10 AM DX BOARD OPERATOR 06/12/2024 5:38 AM DX BOARD OPERATOR Dana Maradiaga MD LAB BLOOD ORDERABLE S Final Result [facility] ([place]) [address] [place] [address] [place] [address] * Clinical pathology report (06/11/2024 2:24 PM DX BOARD OPERATOR) Miscellaneous 06/11/2024 2:2 4 PM DX BOARD OPERATOR 06/11/2024 2:24 PM DX BOARD OPERATOR Narrative 06/12/2024 8:53 AM DX BOARD OPERATOR EPIC results best viewed via link to PDF [facility] Department of Pathology [address] [place] [id number] Final Report Note to Patients: This report [...] details. Patient Name: LATRICE VALENCIA Address: [address] [place] [id number] Gender: F : 1975 (Age: 49) Service: Medical Location: [facility] Hospital #: [id number] Patient Type: [facility] Taken: 06/11/2024 Received: 06/11/2024 Accessioned: 06/11/2024 [...] determined by the Surgical Pathology Department at [facility] as part of an ongoing housing quality standard inspector program and in compliance with federally mandated [...] characteristics determined by the Surgical Pathology Department [facility]. It has not been cleared or approved by the U. S. Food and Drug Administration. REPORT IMAGES AND SCANNED DOCUMENTS, IF INCLUDED, ONLY VIEWABLE IN PDF VERSION OF REPORTe o [facility] Korina Maradiaga MD LAB PATHOLOGY ORDER LOPEZ Final Result * CT Abdomen Pelvis W Contrast (06/11/2024 1:27 PM DX BOARD OPERATOR) Anatomical Region Laterality Modality Body N/A Computed Tomogra phy 06/11/2024 1:34 PM DX BOARD OPERATOR Narrative 06/11/2024 1:47 PM DX BOARD OPERATOR EXAM DESCRIPTION: CT ABDOMEN PELVIS W CONTRAST [...] Galaviz M.D. AG: MARIA LUISA Report ID: [id number] Reading Location: [id number] Procedure Note Eber Galaviz MD - 06/11/2024 [...] Eber Galaviz M.D. AG: AG Report ID: [id number] Reading Location: [place] [address] [facility] Korina Maradiaga MD IM CT PROCEDURES F inal Result * (ABNORMAL) TONY ab ql w/rflx to TONY qn (06/11/2024 11:59 AM DX BOARD OPERATOR) TONY Positive 1:320 Comment: Interpretive Data Normal [...] last revised on 2019. Testing performed by: [facility], 1 [facility] [place] [address] TONY, quant 1:320 titer AMIE Pereira ([place]) Comment:Testing performed by : [facility], [address] [place]., [address] TONY, interp Speckled(A) [facility] ([place]) Comment:Testing performed by : [facility], [address] [place]., [address] Blood 06/11/2024 11:5 9 AM DX BOARD OPERATOR 06/11/2024 2:52 PM DX BOARD OPERATOR Dana Maradiaga MD LAB BLOOD ORDERABLE S Final Result Performing Organization Address City/[facility]/ZIP Co de Phone Number [facility] ([place]) 1 [facility] [employer] [address] * Anti-double stranded DNA abs (06/11/2024 11:59 AM DX BOARD OPERATOR) Pathologist [facility] dsDNA Ab <1.0 <=4.0 IUnits/mL Comment: Interpretive Data Negative: < or = 4 IUnits/mL Indeterminate: 5 - 9 IUnits/mL Positive: > or = 10 IUnits/mL Current interpretive data was last revised on 2016. Testing performed by: [facility], [address] [place]., [address] Blood 06/11/2024 11:5 9 AM DX BOARD OPERATOR 06/11/2024 2:52 PM DX BOARD OPERATOR Dana Maradiaga MD LAB BLOOD ORDERABLE S Final Result [facility] ([place]) 1 [facility] [employer] [address] * HIV 1/2 Antibody plus p24 Antigen Blood (06/11/2024 11:59 AM DX BOARD OPERATOR) Pathologist [facility] HIV 1/2 ab + p24 ag Nonreactive Nonreactive Comment: Nonreactive for HIV-1 antigen and HIV-1/HIV-2 antibodies. No laboratory evidence of HIV infection. If acute HIV infection is suspected, consider testing for HIV-1 RNA. Testing performed by: [address] [address] Blood 06/11/2024 11:5 9 AM DX BOARD OPERATOR 06/11/2024 1:56 PM DX BOARD OPERATOR Dana Maradiaga MD LAB MICROBIOLOGY - GENERAL ORDERABLES Final Result [facility] ([place]) 1 [facility] [place] [address] * Hepatitis panel, acute Blood (06/11/2024 11:59 AM DX BOARD OPERATOR) Hep A IgM Nonreactive Nonreactive Comment: Interpretive Data: If Hep A IgM Ab is reported as Equivocal, a new sample should be drawn in two weeks for testing. Current interpretive data was last revised on 19. Testing performed by: [address] [address] Hep B core IgM Nonreactive Nonreactive Selin RE[facility] ([place]) Comment: Interpretive Data If HepB Core IgM Ab is reported as Equivocal, a new sample should be drawn in two weeks for testing. Current interpretive data was last revised on 19. Testing performed by: [address] [address] Hep C Ab Nonreactive Nonreactive [facility]IE [facility]E [...] last revised on 2019. Testing performed by: [address] [address] HepBsAg Nonreactive Nonreactive [facility] ([place]) Comment:Testing performed by : [address] [address] Blood 06/11/2024 11:5 9 AM DX BOARD OPERATOR 06/11/2024 1:56 PM DX BOARD OPERATOR Dana Maradiaga MD LAB MICROBIOLOGY - GENERAL ORDERABLES Final Result Performing Organization Address City/[facility]/ZIP Co de Phone Number [facility] ([place]) 1 [facility] [place] [address] * Folate (06/11/2024 11:59 AM DX BOARD OPERATOR) Folic acid >20.0 >=5.0 ng/mL Comment:Slightly Hemolyzed S pecimen. Results may be affected. Blood 06/11/2024 11:5 9 AM DX BOARD OPERATOR 06/11/2024 12:25 PM DX BOARD OPERATOR Dana Maradiaga MD LAB BLOOD ORDERABLE S Final Result Performing Organization Address City/[facility] Co de Phone Number [facility] ([place]) 1 [facility] [place] [address] * Vitamin B12 (06/11/2024 11:59 AM DX BOARD OPERATOR) Vitamin B12 630 230 - 1,250 pg/mL Blood 06/11/2024 11:5 9 AM DX BOARD OPERATOR 06/11/2024 12:25 PM DX BOARD OPERATOR Dana Maradiaga MD LAB BLOOD ORDERABLE S Final Result Performing Organization Address City/[facility] Co de Phone Number [facility] ([place]) 1 [facility] [place] [address] * Slide review - pathologist (06/11/2024 5:34 AM DX BOARD OPERATOR) Slide review by Dr Vaughn Diop Comment: [facility] # [id number] Interpretive Data See Clinical Pathology Report under Media section in EPIC. Current Interpretive Data was last revised on 2018. Blood 06/11/2024 5:34 AM DX BOARD OPERATOR 06/11/2024 11:19 AM DX BOARD OPERATOR Dana Maradiaga MD LAB BLOOD ORDERABLE S Final Result [facility] ([place]) 1 [facility] [place] [address] * eGFR (06/11/2024 5:34 AM DX BOARD OPERATOR) eGFR >90 >=60 mL/min/1. 73 m2 Comment: [...] last reviewed 2021. Blood 06/11/2024 5:34 AM DX BOARD OPERATOR 06/11/2024 5:59 AM DX BOARD OPERATOR Dana Maradiaga MD LAB BLOOD ORDERABLE S Final Result [facility] ([place]) 1 [facility] [place] [address] * (ABNORMAL) Differential, auto (06/11/2024 5:34 AM DX BOARD OPERATOR) Neutrophil abs 1.0(L) 1.5 - 6.5 K/cumm [...] revised on 2017. Blood 06/11/2024 5:34 AM DX BOARD OPERATOR 06/11/2024 5:57 AM DX BOARD OPERATOR Dana Maradiaga MD LAB BLOOD ORDERABLE S Final Result [facility] ([place]) 1 [facility] [place] [address] * (ABNORMAL) CBC with auto differential (06/11/2024 5:34 AM DX BOARD OPERATOR) [facility] WBC 2.6(L) 3.8 - 9.9 K/cumm Hgb [...] [facility] ([place]) Blood 06/11/2024 5:34 AM DX BOARD OPERATOR 06/11/2024 5:57 AM DX BOARD OPERATOR us Dana Maradiaga MD LAB BLOOD ORDERABLE S Final Result [facility] ([place]) 1 [facility] [place] [address] * (ABNORMAL) Basic metabolic panel (06/11/2024 5:34 AM DX BOARD OPERATOR) [facility] Sodium 140 135 - 145 mmol/L Potassium, [...] Calcium 9.1 8.5 - 10.3 mg/dL [facility] ([place]) Blood 06/11/2024 5:34 AM DX BOARD OPERATOR 06/11/2024 5:59 AM DX BOARD OPERATOR Dana Maradiaga MD LAB BLOOD ORDERABLE S Final Result [facility] ([place]) 1 [facility] [place] [address] * POCT glucose (06/11/2024 3:01 AM DX BOARD OPERATOR) [facility] Signature Glucose, POC 92 70 - 199 mg/dL Blood 06/11/2024 3:01 AM DX BOARD OPERATOR 06/11/2024 3:01 AM DX BOARD OPERATOR Dana Maradiaga MD LAB POCT ORDERABLES - DEVICE Final Result [facility] ([place] 1 [facility] [place] [address] * eGFR (06/10/2024 7:50 AM DX BOARD OPERATOR) eGFR >90 >=60 mL/min/1. 73 m2 Comment: [...] last reviewed 2021. Blood 06/10/2024 7:50 AM DX BOARD OPERATOR 06/10/2024 8:39 AM DX BOARD OPERATOR us Dana Maradiaga MD LAB BLOOD ORDERABLE S Final Result [facility] ([place]) 1 [facility] [place] [address] * Differential, auto (06/10/2024 7:50 AM DX BOARD OPERATOR) Neutrophil abs 1.5 1.5 - 6.5 K/cumm [...] revised on 2017. Blood 06/10/2024 7:50 AM DX BOARD OPERATOR 06/10/2024 8:39 AM DX BOARD OPERATOR us Dana Maradiaga MD LAB BLOOD ORDERABLE S Final Result [facility] ([place]) 1 [facility] Department of Laboratories [place], [place] [id number] * (ABNORMAL) CBC with auto differential (06/10/2024 7:50 AM DX BOARD OPERATOR) WBC 3.2(L) 3.8 - 9.9 K/cumm Hgb [...] [facility] ([place]) Blood 06/10/2024 7:50 AM DX BOARD OPERATOR 06/10/2024 8:39 AM DX BOARD OPERATOR us Dana Maradiaga MD LAB BLOOD ORDERABLE S Final Result [facility] ([place]) 1 [facility] [place] [address] * (ABNORMAL) Basic metabolic panel (06/10/2024 7:50 AM DX BOARD OPERATOR) Sodium 137 135 - 145 mmol/L Potassium, [...] [facility] ([place]) Blood 06/10/2024 7:50 AM DX BOARD OPERATOR 06/10/2024 8:39 AM DX BOARD OPERATOR Dana Maradiaga MD LAB BLOOD ORDERABLE S Final Result Performing Organization Address City/[facility]/ZIP Co de Phone Number [facility] ([place]) 1 [facility] [employer] [address] * aPTT (06/09/2024 2:55 PM DX BOARD OPERATOR) aPTT 32 28 - 38 sec [facility] ([place]) Comment: Interpretive Data Heparin therapeutic range: 66.0 - 100.0 seconds. Range based on correlation with therapeutic heparin activity range of 0.3 - 0.7 Units/mL. Current interpretive data was last revised on 2023. Blood 06/09/2024 2:55 PM DX BOARD OPERATOR 06/09/2024 3:01 PM DX BOARD OPERATOR Dana Maradiaga MD LAB BLOOD ORDERABLE S Final Result Performing Organization Address City/[facility]/ZIP Co de Phone Number [facility] ([place]) 1 [facility] [place] [address] * Protime-INR (06/09/2024 2:55 PM DX BOARD OPERATOR) PT 11.4 9.7 - 13.0 sec [facility] ([place]) INR 1.05 0.90 - 1.20 [facility] ([place]) Comment: Interpretive data Oral anticoagulant therapeutic ranges: Venous thromboembolism prophylaxis or treatment: 2.0-3.0 CARDIOLOGY Standard range: 2.0-3.0 High-intensity range: 2.5-3.5 Refer to indication-specific guidelines for appropriate target ranges for prosthetic heart valve replacement. Current interpretive data was last revised on 2019. Blood 06/09/2024 2:55 PM DX BOARD OPERATOR 06/09/2024 3:01 PM DX BOARD OPERATOR Dana Maradiaga MD LAB BLOOD ORDERABLE S Final Result [facility] ([place]) 1 [place] [address] * Lipase (06/09/2024 2:55 PM DX BOARD OPERATOR) Lipase 92 10 - 99 Units/L Blood 06/09/2024 2:55 PM DX BOARD OPERATOR 06/09/2024 3:01 PM DX BOARD OPERATOR Dana aMradiaga MD LAB BLOOD ORDERABLE S Final Result Performing Organization Address City/[facility]/ZIP Co de Phone Number [facility] ([place] 1 [facility] [place] [address] * Amylase (06/09/2024 2:55 PM DX BOARD OPERATOR) Amylase 58 30 - 99 Units/L Blood 06/09/2024 2:55 PM DX BOARD OPERATOR 06/09/2024 3:01 PM DX BOARD OPERATOR Dana Maradiaga MD LAB BLOOD ORDERABLE S Final Result [facility] 1 [place] [place] [address] * Ethanol (06/09/2024 2:55 PM DX BOARD OPERATOR) Ethanol <10 <=10 mg/dL Comment: Interpretive Data Legal limit of intoxication > or = 80 mg/dL Levels > or = 400 mg/dL are potentially TOXIC. Current interpretive data was last revised on 2018. Blood 06/09/2024 2:55 PM DX BOARD OPERATOR 06/09/2024 3:01 PM DX BOARD OPERATOR us Dana Maradiaga MD LAB BLOOD ORDERABLE S Final Result [facility] ([place]) 1 [facility] [employer] [place], [place] [id number] * eGFR (06/09/2024 8:33 AM DX BOARD OPERATOR) eGFR >90 >=60 mL/min/1. 73 m2 Comment: [...] last reviewed 2021. Blood 06/09/2024 8:33 AM DX BOARD OPERATOR 06/09/2024 8:36 AM DX BOARD OPERATOR us Jesenia Mckeon MD LAB BLOOD ORDERABLES Final Re sult [facility] ([place]) 1 [facility] [place] [employer] [place] [address] * (ABNORMAL) Drugs of Abuse Screen, Urine without Confirmation (06/09/2024 8:33 AM DX BOARD OPERATOR) Amphetamine, ur Screen Positive, presumptive (A) CutOff [...] revised on 2017. Urine 06/09/2024 8:33 AM DX BOARD OPERATOR 06/09/2024 9:03 AM DX BOARD OPERATOR Narrative [facility] ([place]) - 06/09/2024 9:31 AM DX BOARD OPERATOR Drug of Abuse screening is performed by immunoassay for medical purposes only. This is not to be used for Pain Management purposes. us Jesenia Mckeon MD LAB URINE ORDERABLES Final Re sult [facility] ([place]) 1 [facility] [place] [address] * (ABNORMAL) CBC without differential (06/09/2024 8:33 AM DX BOARD OPERATOR) WBC 5.2 3.8 - 9.9 K/cumm Hgb [...] [facility] ([place]) Blood 06/09/2024 8:33 AM DX BOARD OPERATOR 06/09/2024 8:36 AM DX BOARD OPERATOR us Jesenia Mckeon MD LAB BLOOD ORDERABLES Final Re sult [facility] ([place]) 1 [facility] [place] [address] * (ABNORMAL) Comprehensive metabolic panel (06/09/2024 8:33 AM DX BOARD OPERATOR) Sodium 140 135 - 145 mmol/L Potassium, [...] [facility] ([place]) Blood 06/09/2024 8:33 AM DX BOARD OPERATOR 06/09/2024 8:36 AM DX BOARD OPERATOR us Jesenia Mckeon MD LAB BLOOD ORDERABLES Final Re sult [facility] ([place] 1 [facility] [place] [address] * eGFR (05/05/2024 12:12 PM DX BOARD OPERATOR) eGFR >90 >=60 mL/min/1. 73 m2 Comment: [...] reviewed 2021. Blood 05/05/2024 12:1 2 PM DX BOARD OPERATOR 05/05/2024 12:26 PM DX BOARD OPERATOR Shara Serrano [facility] DO LAB BLOOD ORDERABLES F inal Result [facility] 1 [facility] Department of Laboratories [place], [place] [id number] * (ABNORMAL) CBC without differential (05/05/2024 12:12 PM DX BOARD OPERATOR) Pathologist [facility] WBC 4.3 3.8 - 9.9 K/cumm Hgb [...] [facility] ([place]) Blood 05/05/2024 12:1 2 PM DX BOARD OPERATOR 05/05/2024 12:26 PM DX BOARD OPERATOR us Shara Serrano Suzy DO LAB BLOOD ORDERABLES F inal Result [facility] ([place]) 1 [facility] [place] [address] * (ABNORMAL) Comprehensive metabolic panel (05/05/2024 12:12 PM DX BOARD OPERATOR) Sodium 138 135 - 145 mmol/L Potassium, [...] [facility] ([place]) Blood 05/05/2024 12:1 2 PM DX BOARD OPERATOR 05/05/2024 12:26 PM DX BOARD OPERATOR Shara Yates DO LAB BLOOD ORDERABLES F inal Result [facility] ([place]) 1 [facility] [place] [address] * TRANSTHORACIC ECHO (TTE) COMPLETE W DOPPLER/CF WO CONTRAST (05/04/2024 7:30 AM DX BOARD OPERATOR) LV EF 60-65 % CONS SCIMAGE Anatomical Region Laterality Modality Ultrasound 05/04/2024 7:13 AM DX BOARD OPERATOR Narrative 05/04/2024 4:47 PM DX BOARD OPERATOR [address] [address] Echocardiogram Report Patient Name: LATRICE VALENCIA : 1975 Study Date: 05/04/2024 7:13:46 AM Gender: F Tech: NL Location: [id number] Ref Provider: SHARA YATES Height(Cm): 165 BSA: [...] By: Kwaku Blanco MD 05/04/2024 4:46:44 PM DX BOARD OPERATOR Procedure Note Kwaku Blanco MD - 05/04/2024 [place] [address] Echocardiogram Report Patient Name: LATRICE VALENCIA : 1975 Study Date: 05/04/2024 7:13:46 AM Gender: F Tech: Location: [id number] Ref Provider: SHARA YATES Height(Cm): 165 BSA: [...] By: Kwaku Blanco MD 05/04/2024 4:46:44 PM DX BOARD OPERATOR us Shara Yates DO CV ECHO PROCEDURES Fin al Result * US Upper Extremity Right Limited (05/03/2024 2:05 PM DX BOARD OPERATOR) Anatomical Region Laterality Modality Upper Extremities Right Ultrasound 05/03/2024 4:48 PM DX BOARD OPERATOR Narrative 05/03/2024 4:51 PM DX BOARD OPERATOR EXAM DESCRIPTION: US UPPER EXTREMITY RIGHT LIMITED REASON FOR STUDY: Patient with cellulitis at site of right forearm prior IV site. Firmness at this area, wanting to rule out an abscess. TECHNIQUE: A Dynamic assessment was performed of the soft tissues in the right elbow region by the datastage consultant, with selected grayscale and color Doppler images acquired and recorded in PACS. COMPARISON: None FINDINGS: Thrombus is seen within a superficial vein within the region of concern, with prominent peripheral vascularity. IMPRESSION: Superficial thrombophlebitis within the region of concern. THIS IS AN ELECTRONICALLY VERIFIED FINAL REPORT 05/03/2024 4:51 PM - Electronically signed by Boyd Cook M.D. KR: CHANG Report ID: [id number] Reading Location: [id number] Procedure Note Boyd Cook MD - 05/03/2024 EXAM DESCRIPTION: US UPPER EXTREMITY RIGHT LIMITED REASON FOR STUDY: Patient with cellulitis at site of right forearm priorIV site. Firmness at this area, wanting to rule out an abscess. TECHNIQUE: A Dynamic assessment was performed of the soft tissues in theright elbow region by the datastage consultant, with selected grayscale and color Doppler images acquired and recorded in PACS. COMPARISON: None FINDINGS: Thrombus is seen within a superficial vein within the region of concern,with prominent peripheral vascularity. IMPRESSION: Superficial thrombophlebitis within the region of concern. THIS IS AN ELECTRONICALLY VERIFIED FINAL REPORT 05/03/2024 4:51 PM - Electronically signed by Boyd Cook M.D. KR: CHANG Report ID: [id number] Reading Location: [id number] Shara Serrano [facility] DO IMG US PROCEDURES Maeve l Result * Blood culture Blood (05/03/2024 1:35 PM DX BOARD OPERATOR) Report Final Report: No growth Comment:Testing performed by : [facility], 1 [place]., [address] Blood 05/03/2024 1:35 PM DX BOARD OPERATOR 05/03/2024 4:30 PM DX BOARD OPERATOR Narrative [facility] RE[facility] ([place]) - 05/08/2024 7:00 AM DX BOARD OPERATOR From a different site than #1. Collection->Peripheral [...] performance characteristics have been verified by the [facility] Microbiology Laboratory. For questions about this culture, contact the Microbiology Laboratory at [phone]. Interpretive data was last revised on 24. Shara Yates DO LAB MICROBIOLOGY - GEN ERAL ORDERABLES Final Result AMIE JURADO) 1 [facility] [place] [address] * Blood culture Blood (05/03/2024 11:25 AM DX BOARD OPERATOR) Report Final Report: No growth Comment:Testing performed by : [facility], 1 [place] [address] Blood 05/03/2024 11:2 5 AM DX BOARD OPERATOR 05/03/2024 1:53 PM DX BOARD OPERATOR Narrative AMIE JURADO) - 05/07/2024 4:00 PM DX BOARD OPERATOR Collection->Peripheral 1. Blood cultures are incubated for [...] performance characteristics have been verified by the [facility]biology [facility]. For questions about this culture, contact the Microbiology Laboratory at [phone]. Interpretive data was last revised on 24. Shara Yates DO LAB MICROBIOLOGY - GEN ERAL ORDERABLES Final Result [facility] ([place]) 1 [facility] [address] * Troponin T high-sensitivity 6-hour (05/02/2024 11:01 AM DX BOARD OPERATOR) Trop T hs <6 <=14 ng/L Comment: Interpretive Data For further hscTnT resources including the diagnostic algorithm and an aid in interpretation, copy and paste this link: https://nrl.Fatwire.org/show/hsTrop Current Interpretive Data last revised 2020. Trop T hs delta 0 ng/L [facility] ([place]) Trop T hs interp Insignificant [facility] ([place]) Blood 05/02/2024 11:0 1 AM DX BOARD OPERATOR 05/02/2024 11:11 AM DX BOARD OPERATOR us Guille Wall MD LAB BLOOD ORDERABLES Final Resu lt Performing Organization Address [facility] Co de Phone Number [facility] ([place]) 1 [place] [address] * Troponin T high-sensitivity 2-hour (05/02/2024 6:37 AM DX BOARD OPERATOR) Trop T hs <6 <=14 ng/L Comment: Interpretive Data For further hscTnT resources including the diagnostic algorithm and an aid in interpretation, copy and paste this link: https://nrl.testScoreFeeder.org/show/hsTrop Current Interpretive Data last revised 2020. Trop T hs delta 0 ng/L [facility] ([place]) Trop T hs interp Insignificant [facility] ([place]) Blood 05/02/2024 6:37 AM DX BOARD OPERATOR 05/02/2024 7:06 AM DX BOARD OPERATOR Guille Wall MD LAB BLOOD ORDERABLES Final Resu lt [facility] ([place]) 1 [facility] [place] [address] * Troponin T high-sensitivity series (baseline, 2hr, 4hr, 6hr) (05/02/2024 4:17 AM DX BOARD OPERATOR) Trop T hs <6 <=14 ng/L Comment: Interpretive Data For further hscTnT resources including the diagnostic algorithm and an aid in interpretation, copy and paste this link: https://nrl.testcatalog.org/show/hsTrop Current Interpretive Data last revised 2020. Blood 05/02/2024 4:17 AM DX BOARD OPERATOR 05/02/2024 4:40 AM DX BOARD OPERATOR us Guille Wall MD LAB BLOOD ORDERABLES Final Resu lt Performing Organization Address [facility] Co de Phone Number [facility] 1 [facility] [place] [address] * ECG 12 lead (05/02/2024 2:17 AM DX BOARD OPERATOR) 05/02/2024 2:17 AM DX BOARD OPERATOR N[facility]ative [facility] - 05/02/2024 7:39 AM DX BOARD OPERATOR Vent Rate: 73 bpm RR Interval: 816 msec [place] Interval: 180 msec QRS Duration: 84 msec QT Interval: 397 msec QTC Interval: 423 msec P-R-T [place]: 40 - -21 - 31 degrees IMPRESSION: SINUS RHYTHM WITH SINUS ARRHYTHMIA BORDERLINE LEFT AXIS DEVIATION [QRS AXIS < -20] BORDERLINE ECG Electronically Signed By: Kwaku Blanco MD us Guille Wall MD ECG ORDERABLES Final Result Performing Organization Address [facility] Co de Phone Number [employer] [facility] * US Abdomen Limited (05/01/2024 3:50 PM DX BOARD OPERATOR) Anatomical Region Laterality Modality Abdomen N/A Ultrasound 05/01/2024 5:06 PM DX BOARD OPERATOR Narrative 05/01/2024 5:08 PM DX BOARD OPERATOR EXAM DESCRIPTION: US ABDOMEN LIMITED REASON FOR [...] Boyd Caldwell M.D. KT: KARINA Report ID: [id number] Reading Location: [id number] Procedure Note Boyd Caldwell MD - 05/01/2024 [...] Boyd Caldwell M.D. KT: KARINA Report ID: [id number] Reading Location: [id number] [facility] DO [facility] US PROCEDURES Maeve l Result * aPTT (05/01/2024 2:50 PM DX BOARD OPERATOR) aPTT 34 28 - 38 sec [facility] ([place]) Comment: Interpretive Data Heparin therapeutic range: 66.0 - 100.0 seconds. Range based on correlation with therapeutic heparin activity range of 0.3 - 0.7 Units/mL. Current interpretive data was last revised on 2023. Blood 05/01/2024 2:50 PM DX BOARD OPERATOR 05/01/2024 3:05 PM DX BOARD OPERATOR Shara Serrano [facility] DO LAB BLOOD ORDERABLES F inal Result Performing Organization Address [facility] de Phone Number [facility] ([place]) 1 [place] [address] * (ABNORMAL) Protime-INR (05/01/2024 2:50 PM DX BOARD OPERATOR) PT 14.9(H) 9.7 - 13.0 sec [facility] INR 1.37(H) 0.90 - 1.20 [facility] Comment: Interpretive data Oral anticoagulant therapeutic ranges: Venous thromboembolism prophylaxis or treatment: 2.0-3.0 CARDIOLOGY Standard range: 2.0-3.0 High-intensity range: 2.5-3.5 Refer to indication-specific guidelines for appropriate target ranges for prosthetic heart valve replacement. Current interpretive data was last revised on 2019. Blood 05/01/2024 2:50 PM DX BOARD OPERATOR 05/01/2024 3:05 PM DX BOARD OPERATOR Shara Serrano Suzy LAB BLOOD ORDERABLES F inal Result Performing Organization Address [facility] de Phone Number [facility] ([place]) 1 [place] [address] * (ABNORMAL) Urinalysis reflex to microscopic and culture Urine (05/01/2024 10:44 AM DX BOARD OPERATOR) Color, ur Yellow Yellow Clarity, ur Clear Clear [facility] ([place]) Specific gravity, ur 1.017 1.003 - 1.030 [facility] ([place]) pH, urine 6.0 [facility] Comment: Interpretive Data U rine pH is affected by diet, medications, systemic acid-base disturbances, and renal tubular function. pH may affect urinary stone formation. For example, urine pH below 6.0 may help reduce the tendency for calcium phosphate stones and pH greater than 6.0 may reduce the tendency for uric acid stone formation. Source: [facility] Current Interpretive Data was last revised [...] [facility] ([place]) Urine 05/01/2024 10:4 4 AM DX BOARD OPERATOR 05/01/2024 10:50 AM DX BOARD OPERATOR Shara Yates DO LAB MICROBIOLOGY - GEN ERAL ORDERABLES Final Result Performing Organization Address [facility] de Phone Number [facility] ([place]) 1 [facility] [employer] [place] [address] * (ABNORMAL) Urinalysis, microscopic only (05/01/2024 10:44 AM DX BOARD OPERATOR) WBC, ur 0-5 0 - 5 /HPF RBC, ur 0-2 0 - 2 /HPF [facility] ([place]) Epithelial cells, squamous, ur 11-20(A) 0 - 5 /HPF [facility] ([place]) Bacteria, ur Trace(A) [facility] ([place]) Mucous, ur Present(A) [facility] ([place]) Culture Reflex Comment Reflex conditions for urine culture (WBC >10) not met. [facility] ([place]) Urine 05/01/2024 10:4 4 AM DX BOARD OPERATOR 05/01/2024 10:50 AM DX BOARD OPERATOR Shara Yates DO LAB URINE ORDERABLES F inal Result Performing Organization Address [facility]/ZIP Co de Phone Number [facility] 1 [facility] [place] [address] * Respiratory pathogen panel Nasopharyngeal (05/01/2024 10:04 AM DX BOARD OPERATOR) Pathologist [facility] Influenza A RNA Not Detected Not Detected Comment:Testing performed by : [facility], [address] [place] [address], [id number] Influenza B RNA Not Detected Not Detected [facility] ([place]) Comment:Testing performed by : [facility], [address] [place] [address], [address] RSV RNA Not Detected Not Detected [facility] ([place]) Comment:Testing performed by : [facility], [address] [place] [address]., [address] COVID-19 RNA Not Detected Not Detected [facility] ([place]) Comment:Testing performed by : [facility], [address] [place] [address], [address] Coronavirus 229E RNA Not Detected Not Detected [facility] ([place]) Comment:Testing performed by : [facility], [address] [place] [address], [id number] Coronavirus HKU1 RNA Not Detected Not Detected [facility] ([place]) Comment:Testing performed by : [facility], [address] [place] [address], [address] Coronavirus NL63 RNA Not Detected Not Detected [facility] ([place]) Comment:Testing performed by : [facility], [address] [place] [address], [address] Coronavirus OC43 RNA Not Detected Not Detected [facility] ([place]) Comment:Testing performed by : [facility], [address] [place] [address], [address] Adenovirus DNA Not Detected Not Detected [facility] ([place]) Comment:Testing performed by : [facility], [address] [place] [address]., [address] Metapneumovirus RNA Not Detected Not Detected [facility] ([place]) Comment:Testing performed by : [facility], [address] [place] [address], [address] Rhinovirus/Enterov irus RNA Not Detected Not Detected [facility] ([place]) Comment:Testing performed by : [facility], [address] [place] [address], [address] Parainfluenza 1 RNA Not Detected Not Detected [facility] ([place]) Comment:Testing performed by : [facility], [address] [place] [address], [address] Parainfluenza 2 RNA Not Detected Not Detected [facility] ([place]) Comment:Testing performed by : [facility], [address] [place] [address]., [address] Parainfluenza 3 RNA Not Detected Not Detected [facility] ([place]) Comment:Testing performed by : [facility], [address] [place] [address]., [address] Parainfluenza 4 RNA Not Detected Not Detected [facility] ([place]) Comment:Testing performed by : [facility], [address] [place] [address]., [address] B. pertussis DNA Not Detected Not Detected [facility] ([place]) Comment:Testing performed by : [facility], [address] [place] [address]., [address] B. parapertussis DNA Not Detected Not Detected [facility] ([place]) Comment:Testing performed by : [facility], [address] [place] [address]., [address] C. pneumoniae DNA Not Detected Not Detected [facility] ([place]) Comment:Testing performed by : [facility], [address] [place] [address]., [address] M. pneumoniae DNA Not Detected Not Detected [facility] ([place]) Comment: Interpretive Data The [employer] FilmArray Respiratory Panel (RP2.1) assay is a [...] assay has FDA clearance for testing of LEGAL PRACTICE MANAGER swabs. The performance characteristics of this assay have been determined by [facility]. Current interpretive data was last revised on 2020. Testing performed by: [facility], [address] [place] [address]., [address] Nasopharyngeal 05/01/2024 10 :04 AM DX BOARD OPERATOR 05/01/2024 11:23 AM DX BOARD OPERATOR Narrative [facility] ([place]) - 05/01/2024 12:24 PM DX BOARD OPERATOR Is the Patient experiencing symptoms consistent with COVID?->Yes Surveillance testing for transplant patient?->No Shara Serrano [facility] DO LAB MICROBIOLOGY - GEN ERAL ORDERABLES Final Result [facility] ([place]) 1 [facility] [place] [address] CH * XR CHEST 1 VIEW PORTABLE (05/01/2024 9:53 AM DX BOARD OPERATOR) Anatomical Region Laterality Modality Body, Chest N/A Computed Radiogr aphy 05/01/2024 12:2 9 PM DX BOARD OPERATOR Narrative 05/01/2024 12:30 PM DX BOARD OPERATOR EXAM DESCRIPTION: XR CHEST 1 VIEW REASON [...] Dong Thorne M.D. RB: ADALID Report ID: [id number] Reading Location: [id number] Procedure Note Dong Thorne MD - 05/01/2024 [...] Dong Thorne M.D. RB: ADALID Report ID: [id number] Reading Location: [id number] Shara Serrano [facility] DO IMG XR PROCEDURES Maeve l Result * Lactate (05/01/2024 8:52 AM DX BOARD OPERATOR) Lactate 1.3 0.7 - 2.0 mmol/L Blood 05/01/2024 8:52 AM DX BOARD OPERATOR 05/01/2024 9:01 AM DX BOARD OPERATOR Shara Yates DO LAB BLOOD ORDERABLES F inal Result [facility] ([place]) 1 [place] [address] * eGFR (05/01/2024 8:52 AM DX BOARD OPERATOR) eGFR >90 >=60 mL/min/1. 73 m2 Comment: [...] last reviewed 2021. Blood 05/01/2024 8:52 AM DX BOARD OPERATOR 05/01/2024 9:40 AM DX BOARD OPERATOR Shara Yates DO LAB BLOOD ORDERABLES F inal Result [facility] ([place]) 1 [facility] [place] [address] * (ABNORMAL) CBC without differential (05/01/2024 8:52 AM DX BOARD OPERATOR) Pathologist [facility] WBC 6.4 3.8 - 9.9 K/cumm Hgb [...] [facility] ([place]) Blood 05/01/2024 8:52 AM DX BOARD OPERATOR 05/01/2024 9:40 AM DX BOARD OPERATOR Shara Serrano [facility] DO LAB BLOOD ORDERABLES F inal Result [facility] ([place]) 1 [facility] Department of Laboratories [place], [place] [id number] * (ABNORMAL) Comprehensive metabolic panel (05/01/2024 8:52 AM DX BOARD OPERATOR) Sodium 132(L) 135 - 145 mmol/L Potassium, pl 3.6 3.3 - 4.9 mmol/L [facility] Chloride 100 97 [...] [facility] ([place]) Blood 05/01/2024 8:52 AM DX BOARD OPERATOR 05/01/2024 9:40 AM DX BOARD OPERATOR Shara Serrano [facility] DO LAB BLOOD ORDERABLES F inal Result [facility] ([place]) 1 [facility] [place] [address] * (ABNORMAL) Blood culture Blood (04/30/2024 8:47 PM DX BOARD OPERATOR) Direct Specimen Exam Molecular Analysis: Methicillin-suscep tible Staphylococcus aureus (MSSA) detected by the maxx [employer] BCID-GP panel. This test does not exclude the possibility of a mixed bacterial infection. Notification of: Methicillin-suscep tible Staphylococcus aureus (MSSA) called to and read back by: Latrice Wellington MLS ([phone]) on 05/02/2024 01:41:52 by: Fritz Kebede MLS Comment:Testing performed by : [facility], 1 [place]., [address] Direct Specimen Exam Stain: Gram Positive Cocci in clusters Time to culture positivity (anaerobic media): 22.7 hours Notification of: Gram Positive Cocci in clusters called to and read back by: Latrice Wellington MLS ([phone]) on 05/01/2024 23:41:23 by: Fritz Kebede MLS Test result called to and read back by fabio stephenson on 05/02/2024 00:23:23 by latrice RENAE ([place]) Comment:Testing performed by : [facility], [address] [place] [address]., [id number] Report Final Report: Staphylococcus aureus Methicillin susceptible (MSSA) by penicillin binding protein 2a (PBP2a) testing. (.) [facility] ([place]) Comment:Testing performed by : [facility], [address] [place] [address]., [id number] Organism STAPHYLOCOCCUS AUREUS [facility] ([place]) Blood 04/30/2024 8:47 PM DX BOARD OPERATOR 05/01/2024 Narrative [facility] ([place]) - 05/06/2024 1:15 PM DX BOARD OPERATOR From a different site than #1. Collection->Peripheral [...] performance characteristics have been verified by the [facility]. For questions about this culture, contact the Microbiology Laboratory at [phone]. Interpretive data was last revised on 24. [...] (ILIA) INTERPRETATIO N Susceptible Staphylococcus aureus Cefazolin (ILAI) INTERPRETATIO N Susceptible Staphylococcus aureus Ceftriaxone (ILIA) INTERPRETATIO N Susceptible us Guille Wall MD LAB MICROBIOLOGY - GENERAL LINDEN LARSEN Final Result [facility] ([place]) 1 [facility] [place] [address] * Blood culture Blood (04/30/2024 8:47 PM DX BOARD OPERATOR) Report Final Report: No growth Comment:Testing performed by : [facility], 1 [place] [address] Blood 04/30/2024 8:47 PM DX BOARD OPERATOR 05/01/2024 Narrative [facility] ([place]) - 05/05/2024 7:00 AM DX BOARD OPERATOR Collection->Peripheral 1. Blood cultures are incubated for [...] performance characteristics have been verified by the [facility]. For questions about this culture, contact the Microbiology Laboratory at [phone]. Interpretive data was last revised on 24. us Guille Wall MD LAB MICROBIOLOGY - GENERAL ORDChely LARSEN Final Result [facility] [place] 1 [facility] [place] [address] * MRI Lumbar Spine WO Contrast (04/30/2024 2:26 PM DX BOARD OPERATOR) Anatomical Region Laterality Modality Spine N/A Magnetic Resonan ce 04/30/2024 4:06 PM DX BOARD OPERATOR Narrative 04/30/2024 4:12 PM DX BOARD OPERATOR EXAM DESCRIPTION: MRI LUMBAR SPINE WO CONTRAST [...] Bo Travis M.D. DORIS: DORIS Report ID: [id number] Reading Location: [id number] Procedure Note Bo Travis MD - 04/30/2024 [...] Relevant portions of CT abdomen pelvis with qqeoehsv25/19/2025. FINDINGS: SEGMENTATION: No lumbosacral transitional anatomy. The [...] Bo Travis M.D. DORIS: DORIS Report ID: [id number] Reading Location: [id number] Zee Khan MD IMG MRI PROCEDURES Final Result * CT Abdomen Pelvis W Contrast (04/29/2024 9:22 AM DX BOARD OPERATOR) Anatomical Region Laterality Modality Body N/A Computed Tomogra phy 04/29/2024 12:5 1 PM DX BOARD OPERATOR Narrative 04/29/2024 12:58 PM DX BOARD OPERATOR EXAM DESCRIPTION: CT ABDOMEN PELVIS W CONTRAST [...] Alphonso Chaudhry M.D. DORIS: DORIS Report ID: [id number] Reading Location: [id number] Procedure Note Dave Chaudhry MD - 04/29/2024 [...] Alphonso Chaudhry M.D. DORIS: DORIS Report ID: [id number] Reading Location: [id number] Zee Khan MD IMG CT PROCEDURES Final Result * eGFR (04/29/2024 4:53 AM DX BOARD OPERATOR) eGFR >90 >=60 mL/min/1. 73 m2 Comment: [...] last reviewed 2021. Blood 04/29/2024 4:53 AM DX BOARD OPERATOR 04/29/2024 5:18 AM DX BOARD OPERATOR us Zee Khan MD LAB BLOOD ORDERABLES Fin al Result [facility] 1 [facility] [place] [address] * Differential, auto (04/29/2024 4:53 AM DX BOARD OPERATOR) Neutrophil abs 2.2 1.5 - 6.5 K/cumm [...] revised on 2017. Blood 04/29/2024 4:53 AM DX BOARD OPERATOR 04/29/2024 5:17 AM DX BOARD OPERATOR us Zee Khan MD LAB BLOOD ORDERABLES Fin al Result [facility] ([place]) 1 [facility] [place] [address] * (ABNORMAL) CBC with auto differential (04/29/2024 4:53 AM DX BOARD OPERATOR) WBC 4.4 3.8 - 9.9 K/cumm Hgb [...] CV 13.4 11.1 - 14.9 % [facility] RDW SD 47.5 35.7 - 48.1 fL [facility] NRBC abs 0.00 0.00 - 0.01 K/cumm [facility] Blood 04/29/2024 4:53 AM DX BOARD OPERATOR 04/29/2024 5:17 AM DX BOARD OPERATOR Zee Khan MD LAB BLOOD ORDERABLES Fin al Result [facility] ([place]) 1 [facility] [place] [address] * (ABNORMAL) Phosphorus (04/29/2024 4:53 AM DX BOARD OPERATOR) Phosphorus, pl 4.6(H) 2.3 - 4.5 mg/dL Blood 04/29/2024 4:53 AM DX BOARD OPERATOR 04/29/2024 5:18 AM DX BOARD OPERATOR Zee Khan MD LAB BLOOD ORDERABLES Fin al Result Performing Organization Address City/[facility] Co de Phone Number [facility] ([place]) 1 [facility] [place] [address] * Magnesium (04/29/2024 4:53 AM DX BOARD OPERATOR) Magnesium 1.6 1.4 - 2.5 mg/dL Blood 04/29/2024 4:53 AM DX BOARD OPERATOR 04/29/2024 5:18 AM DX BOARD OPERATOR Zee Khan MD LAB BLOOD ORDERABLES Fin al Result Performing Organization Address City/[facility] Co de Phone Number [facility] ([place]) 1 [facility] [employer] [address] * Hepatic function panel (04/29/2024 4:53 AM DX BOARD OPERATOR) Bilirubin, total 0.3 0.1 - 1.2 mg/dL [...] [facility] ([place]) Blood 04/29/2024 4:53 AM DX BOARD OPERATOR 04/29/2024 5:18 AM DX BOARD OPERATOR us Zee Khan MD LAB BLOOD ORDERABLES Fin al Result [facility] ([place]) 1 [facility] [place] [address] * Basic metabolic panel (04/29/2024 4:53 AM DX BOARD OPERATOR) Sodium 139 135 - 145 mmol/L Potassium, pl 3.8 3.3 - 4.9 mmol/L [facility] Chloride 104 97 - 110 mmol/L [facility] ([place]) CO2 25 22 - 32 mmol/L [facility] ([place]) Anion gap 10 2 - 15 mmol/L [facility] ([place]) BUN 23 6 - 25 mg/dL [facility] Creatinine 0.61 0.60 [...] [facility] ([place]) Blood 04/29/2024 4:53 AM DX BOARD OPERATOR 04/29/2024 5:18 AM DX BOARD OPERATOR Zee Khan MD LAB BLOOD ORDERABLES Fin al Result Performing Organization Address City/[facility]/ZIP Co de Phone Number [facility] ([place] 1 [facility] [place] [address] * Lipase (04/28/2024 1:16 PM DX BOARD OPERATOR) Lipase 90 10 - 99 Units/L Blood 04/28/2024 1:16 PM DX BOARD OPERATOR 04/28/2024 1:47 PM DX BOARD OPERATOR Zee Khan MD LAB BLOOD ORDERABLES Fin al Result Performing Organization Address [facility] de Phone Number [facility] 1 [facility] [place] [address] * Hepatic function panel (04/28/2024 1:16 PM DX BOARD OPERATOR) Bilirubin, total 0.3 0.1 - 1.2 mg/dL [...] Moderately Hemolyzed Specimen Blood 04/28/2024 1:16 PM DX BOARD OPERATOR 04/28/2024 2:18 PM DX BOARD OPERATOR Zee Khan MD LAB BLOOD ORDERABLES Fin al Result Performing Organization Address City/[facility]/ZIP Co de Phone Number [facility] ([place]) 1 [facility] [place] [address] * eGFR (04/26/2024 8:41 AM DX BOARD OPERATOR) eGFR >90 >=60 mL/min/1. 73 m2 Comment: [...] last reviewed 2021. Blood 04/26/2024 8:41 AM DX BOARD OPERATOR 04/26/2024 8:57 AM DX BOARD OPERATOR us Maddie White MD LAB BLOOD ORDERABLES Maeve l Result Performing Organization Address City/[facility]/ZIP Co de Phone Number [facility] ([place]) 1 [facility] [place] [address] * (ABNORMAL) CBC without differential (04/26/2024 8:41 AM DX BOARD OPERATOR) WBC 6.4 3.8 - 9.9 K/cumm Hgb 13.8 11.9 - 15.5 g/dL [facility] ([place]) Hct 40.1 35.6 - 45.5 % [facility] ([place]) Plt 115(L) 150 - 400 K/cumm [facility] ([place]) MPV 10.1 9.1 - 12.3 fL [facility] RBC 4.21 3.90 - 5.20 M/cumm [facility] ([place] MCV 95.2 81.3 - 96.[address] [facility] ([place]) MCH 32.8 27.1 - 33.[address] [facility] ([place]) MCHC 34.4 32.3 - 35.7 g/dL [facility] RDW CV 13.2 11.1 - 14.9 % [facility] RDW SD 45.2 35.7 - 48.[address] [facility] ([place]) NRBC abs 0.00 0.00 - 0.01 K/cumm [facility] ([place]) Blood 04/26/2024 8:41 AM DX BOARD OPERATOR 04/26/2024 8:57 AM DX BOARD OPERATOR us Maddie White MD LAB BLOOD ORDERABLES Maeve l Result [facility] ([place]) 1 [facility] [place] [address] * Comprehensive metabolic panel (04/26/2024 8:41 AM DX BOARD OPERATOR) Sodium 138 135 - 145 mmol/L Potassium, pl 3.3 3.3 - 4.9 mmol/L [facility] ([place]) Chloride 103 97 - 110 mmol/L [facility] ([place]) CO2 22 22 - 32 mmol/L [facility] ([place]) Anion gap 13 2 - 15 mmol/L [facility] ([place]) BUN 21 6 - 25 mg/dL [facility] ([place]) Creatinine 0.61 0.60 - 1.10 mg/dL [facility] Glucose 126 70 - 199 mg/dL [facility] ([place]) Comment: Interpretive Data Fasting [...] [facility] ([place]) Blood 04/26/2024 8:41 AM DX BOARD OPERATOR 04/26/2024 8:57 AM DX BOARD OPERATOR us Maddie White MD LAB BLOOD ORDERABLES Maeve lopez Result [facility] ([place]) 1 [facility] [place] [address] * eGFR (04/25/2024 8:53 AM DX BOARD OPERATOR) eGFR >90 >=60 mL/min/1. 73 m2 Comment: [...] last reviewed 2021. Blood 04/25/2024 8:53 AM DX BOARD OPERATOR 04/25/2024 8:55 AM DX BOARD OPERATOR us Chang Mckeon MD LAB BLOOD ORDERABLE S Final Result [facility] ([place]) 1 [facility] [place] [address] * (ABNORMAL) Differential, auto (04/25/2024 8:53 AM DX BOARD OPERATOR) Neutrophil abs 6.3 1.5 - 6.5 K/cumm [...] revised on 2017. Blood 04/25/2024 8:53 AM DX BOARD OPERATOR 04/25/2024 8:55 AM DX BOARD OPERATOR us Chang Mckeon MD LAB BLOOD ORDERABLE S Final Result [facility] ([place]) 1 [facility] [place] [address] * (ABNORMAL) CBC with auto differential (04/25/2024 8:53 AM DX BOARD OPERATOR) WBC 7.4 3.8 - 9.9 K/cumm Hgb [...] RDW SD 43.8 35.7 - 48.1 fL [facility] ([place]) NRBC abs 0.00 0.00 - 0.01 K/cumm [facility] ([place]) Blood 04/25/2024 8:53 AM DX BOARD OPERATOR 04/25/2024 8:55 AM DX BOARD OPERATOR us Chang Mckeon MD LAB BLOOD ORDERABLE S Final Result Performing Organization Address City/[facility] Co de Phone Number [facility] ([place]) 1 [facility] [address] * aPTT (04/25/2024 8:53 AM DX BOARD OPERATOR) aPTT 29 28 - 38 sec [facility] ([place]) Comment: Interpretive Data Heparin therapeutic range: 66.0 - 100.0 seconds. Range based on correlation with therapeutic heparin activity range of 0.3 - 0.7 Units/mL. Current interpretive data was last revised on 2023. Blood 04/25/2024 8:53 AM DX BOARD OPERATOR 04/25/2024 5:58 PM DX BOARD OPERATOR us Maddie White MD LAB BLOOD ORDERABLES Maeve l Result Performing Organization Address [facility] Co de Phone Number [facility] ([place]) 1 [place] [address] * Protime-INR (04/25/2024 8:53 AM DX BOARD OPERATOR) PT 11.5 9.7 - 13.0 sec [facility] ([place]) INR 1.06 0.90 - 1.20 [facility] ([place]) Comment: Interpretive data Oral anticoagulant therapeutic ranges: Venous thromboembolism prophylaxis or treatment: 2.0-3.0 CARDIOLOGY Standard range: 2.0-3.0 High-intensity range: 2.5-3.5 Refer to indication-specific guidelines for appropriate target ranges for prosthetic heart valve replacement. Current interpretive data was last revised on 2019. Blood 04/25/2024 8:53 AM DX BOARD OPERATOR 04/25/2024 5:58 PM DX BOARD OPERATOR Maddie White MD LAB BLOOD ORDERABLES Maeve l Result Performing Organization Address City/[facility]/ZIP Co de Phone Number [facility] ([place]) 1 [place] [address] * Magnesium (04/25/2024 8:53 AM DX BOARD OPERATOR) Pathologist [facility] Magnesium 1.4 1.4 - 2.5 mg/dL Blood 04/25/2024 8:53 AM DX BOARD OPERATOR 04/25/2024 9:56 AM DX BOARD OPERATOR Chang Mckeon MD LAB BLOOD ORDERABLE S Final Result Performing Organization Address [facility] de Phone Number [facility] ([place]) 1 [place] [address] * (ABNORMAL) Ethanol (04/25/2024 8:53 AM DX BOARD OPERATOR) Pathologist [facility] Ethanol 59(H) <=10 mg/dL Comment: Interpretive Data Legal limit of intoxication > or = 80 mg/dL Levels > or = 400 mg/dL are potentially TOXIC. Current interpretive data was last revised on 2018. Blood 04/25/2024 8:53 AM DX BOARD OPERATOR 04/25/2024 8:55 AM DX BOARD OPERATOR us Chang Mckeon MD LAB BLOOD ORDERABLE S Final Result Performing Organization Address [facility] Co de Phone Number [facility] ([place]) 1 [place] [address] * (ABNORMAL) Comprehensive metabolic panel (04/25/2024 8:53 AM DX BOARD OPERATOR) Pathologist [facility] Sodium 134(L) 135 - 145 mmol/L Potassium, pl 3.5 3.3 - 4.9 mmol/L [facility] ([place]) Chloride 99 97 - 110 mmol/L [facility] ([place]) CO2 21(L) 22 - 32 [...] Hemolyzed S pecimen Blood 04/25/2024 8:53 AM DX BOARD OPERATOR 04/25/2024 8:55 AM DX BOARD OPERATOR us Chang Mckeon MD LAB BLOOD ORDERABLE S Final Result [facility] ([place] 1 [facility] [place] [address] * eGFR (04/25/2024 8:33 AM DX BOARD OPERATOR) eGFR >90 >=60 mL/min/1. 73 m2 Comment: [...] last reviewed 2021. Blood 04/25/2024 8:33 AM DX BOARD OPERATOR 04/25/2024 8:41 AM DX BOARD OPERATOR us Jesenia Mckeon MD LAB BLOOD ORDERABLES Final Re sult [facility] ([place]) 1 [facility] Department of Laboratories [place], [place] [address] * (ABNORMAL) Drugs of Abuse Screen, Urine without Confirmation (04/25/2024 8:33 AM DX BOARD OPERATOR) Amphetamine, ur Screen Positive, presumptive (A) CutOff [...] revised on 2017. Urine 04/25/2024 8:33 AM DX BOARD OPERATOR 04/25/2024 8:43 AM DX BOARD OPERATOR Narrative [facility] ([place]) - 04/25/2024 9:03 AM DX BOARD OPERATOR Drug of Abuse screening is performed by immunoassay for medical purposes only. This is not to be used for Pain Management purposes. us Jesenia Mckeon MD LAB URINE ORDERABLES Final Re sult [facility] ([place]) 1 [facility] [place] [address] * (ABNORMAL) CBC without differential (04/25/2024 8:33 AM DX BOARD OPERATOR) WBC 7.3 3.8 - 9.9 K/cumm Hgb 14.7 11.9 - 15.5 g/dL [facility] ([place]) Hct 41.6 35.6 - 45.5 % [facility] ([place]) Plt 121(L) 150 - 400 K/cumm [facility] ([place]) MPV 10.1 9.1 - 12.3 fL [facility] ([place]) RBC 4.53 3.90 - 5.20 M/cumm [facility] ([place]) MCV 91.8 81.3 - 96.[address] [facility] ([place]) MCH 32.5 27.1 - 33.[address] [facility] ([place]) MCHC 35.3 32.3 - 35.7 g/dL [facility] ([place]) RDW CV 12.9 11.1 - 14.9 % [facility] ([place]) RDW SD 42.5 35.7 - 48.[address] [facility] ([place]) NRBC abs 0.00 0.00 - 0.01 K/cumm [facility] ([place]) Blood 04/25/2024 8:33 AM DX BOARD OPERATOR 04/25/2024 8:41 AM DX BOARD OPERATOR us Jesenia Mckeon MD LAB BLOOD ORDERABLES Final Re sult [facility] ([place]) 1 [facility] [place] [address] * (ABNORMAL) Comprehensive metabolic panel (04/25/2024 8:33 AM DX BOARD OPERATOR) Sodium 135 135 - 145 mmol/L Potassium, pl 3.4 3.3 - 4.9 mmol/L [facility] ([place]) Chloride 101 97 - 110 mmol/L [facility] ([place]) CO2 19(L) 22 - 32 mmol/L [facility] ([place]) Anion gap 15 2 - 15 mmol/L [facility] ([place]) BUN 13 6 - 25 mg/dL [facility] ([place]) Creatinine 0.47(L) 0.60 - 1.10 mg/dL [facility] ([place]) Glucose 156 70 - 199 mg/dL [facility] ([place]) Comment: Interpretive Data Fasting glucose [...] Hemolyzed S pecimen Blood 04/25/2024 8:33 AM DX BOARD OPERATOR 04/25/2024 8:41 AM DX BOARD OPERATOR Jesenia Mckeon MD LAB BLOOD ORDERABLES Final Re sult [facility] ([place]) 1 [facility] [place] [address] from Last 3 Months Insurance [employer] [facility] Advance Directives For more information, please contact: [phone] * Full Code (Latest Code Status on File) Date Activated Date Inactivated Comments 06/09/2024 2:35 PM 06/12/2024 5:25 PM * Full Code Date Activated Date Inactivated Comments 04/25/2024 5:41 PM 05/07/2024 7:44 PM Care Teams Telephoto Installer Relationship Specialty Start Date End Date Bladimir Crowder MD [address] [place] [id number] PCP - General Family Medicine 04/25/24
--- OUTSIDE RECORDS SUMMARY | 2024-07-15 22:40 | XMS_ITS | Referral Summary ---
Author Organization [facility] Address 1 [place] [address] Care Team Providers Care Broadcaster Name Role Phone Bladimir Crowder MD Primary Care Provider [phone] Encounters Date Type Department Care Team Description 06/12/2024 Documentation [facility] Warm Hand Off Program [address] [place], [place] [phone] Bruno Jefferson 06/09/2024 11:27 AM INSTANT POTATO PROCESSING SUPERVISOR - 06/12/2024 1:20 PM INSTANT POTATO PROCESSING SUPERVISOR Hospital Encounter [facility] [address] [place] [phone] Jesenia Mckeon MD Okonkwo, Kasiemobi Bernice, MD Richards, Davi Simmons Jr., MD Alcohol withdrawal syndrome without complication (HCC) (Primary Dx); Chronic pancreatitis, unspecified pancreatitis type (HCC) [K86.1] Discharge Disposition: Discharge to not defined facility 06/11/2024 Documentation [facility] Warm Hand Off Program [address] [place], [place] [phone] Latrice Dumont 06/10/2024 Documentation [facility] Warm [facility] Off Program [address] [place], [place] [phone] Latrice Dumont 06/09/2024 [facility] Enrollment [facility] Program [address] [place], [place] [phone] Latrice Dumont 06/09/2024 8:20 AM INSTANT POTATO PROCESSING SUPERVISOR Lab [address] [phone] 05/28/2024 [facility] Initial Eligibility [facility] [address] [place], [place] [phone] Bo Rojas 05/17/2024 [facility] Outreach [facility] Warm [facility] Off [facility] [address] [place], [place] [phone] Hilario, Jana EValentín 05/08/2024 Telephone [facility] [address] [phone] Shara Yates DO 05/07/2024 Documentation [facility] Warm Hand Off Program 1 [place] [phone] Latrice Dumont 04/25/2024 10:50 AM INSTANT POTATO PROCESSING SUPERVISOR - 05/07/2024 3:39 PM INSTANT POTATO PROCESSING SUPERVISOR Hospital Encounter [facility] 1 [place] [address] Maddie White MD Sargsyan, MD Shantell Ba Chandni, MD Abegunde, MD Suzy Velazquez Matthew Austin, Alcohol withdrawal syndrome without complication (HCC) (Primary Dx); Unspecified mood disorder Discharge Disposition: Discharge to home or self care 05/05/2024 Documentation [facility] Warm Hand Off Program [address] [place], [place] [phone] Hilario, Jana E. 05/03/2024 Documentation [facility] Warm [facility] Off [facility] [address] [place], [place] [phone] Hilario, Jana E. 05/02/2024 Documentation [facility] Warm Hand Off Program [address] [place], [place] [phone] Latrice Dumont 05/01/2024 Documentation [facility] Warm [facility] Off Program [address] [place], [place] [phone] Hilario, Jana E. 04/30/2024 Documentation [facility] Warm Hand Off Program [address] [place], [place] [phone] Latrice Dumont 04/29/2024 Documentation [facility] Warm Hand Off Program [address] [place], [place] [phone] Latrice Dumont 04/27/2024 [facility] Enrollment [facility] Warm Hand Off Program [address] [place], [place] [phone] Hilario, Jana EValentín 04/25/2024 Documentation [facility] Warm Hand Off Program 1 [place], [place] [phone] Cathy Hilarioanda Emmanuel 04/25/2024 Documentation [facility] Off Program [address] [place] [address] Jana Hilario 04/25/2024 8:30 AM INSTANT POTATO PROCESSING SUPERVISOR Lab [address] [phone] 04/23/2024 Documentation [facility] Off [facility] [address] [place] [address] Latrice Dumont from Last 3 Months Allergies [...] 06/09/2024 Assessment & Plan (06/09/2024 3:43 PM INSTANT POTATO PROCESSING SUPERVISOR): Chronic hx. Managed w/ Creon TID. Pt has non-specific abdominal pain in the setting of alcohol withdrawal. Amylase and lipase are normal. Acute pancreatitis is unlikely. Plan: - Continue Creon - Monitor IV fluids - If abdominal pain persists or worsens, consider CT abdomen Cirrhosis 06/09/2024 Assessment & Plan (06/09/2024 3:33 PM INSTANT POTATO PROCESSING SUPERVISOR): Chronic hx. LFTs are normal. PT, PTT, and INR are normal. Currently stable Plan: - Monitor for symptoms Unspecified mood disorder 05/02/2024 Alcohol withdrawal syndrome without complication 04/25/2024 Assessment & Plan (06/09/2024 3:42 PM INSTANT POTATO PROCESSING SUPERVISOR): 49 y/o female w/ alcohol use disorder, [...] Comments Blood Pressure 128/74 06/12/2024 11:09 AM INSTANT POTATO PROCESSING SUPERVISOR Pulse 67 06/12/2024 11:09 AM INSTANT POTATO PROCESSING SUPERVISOR Temperature 36.4 C (97.5 F) 06/12/2024 11:09 AM INSTANT POTATO PROCESSING SUPERVISOR Respiratory Rate 15 06/12/2024 11:09 AM INSTANT POTATO PROCESSING SUPERVISOR Oxygen Saturation 97% 06/12/2024 11:09 AM INSTANT POTATO PROCESSING SUPERVISOR Inhaled Oxygen Concentration - - Weight 69.4 kg (153 lb) 06/09/2024 11:47 AM INSTANT POTATO PROCESSING SUPERVISOR Height 165.1 cm (5' 5 ) 06/09/2024 11:47 AM INSTANT POTATO PROCESSING SUPERVISOR Body Mass Index 25.46 06/09/2024 11:47 AM INSTANT POTATO PROCESSING SUPERVISOR Plan of Treatment Not on file Procedures Procedure Name Priority Date/Time Associated Diagnosis Comments EGFR Routine 06/12/2024 5:10 AM INSTANT POTATO PROCESSING SUPERVISOR DIFFERENTIAL AUTO Routine 06/12/2024 5:1 0 AM INSTANT POTATO PROCESSING SUPERVISOR CBC WITH AUTO DIFFERENTIAL Routine 06/12/2024 5:10 AM INSTANT POTATO PROCESSING SUPERVISOR BASIC METABOLIC PANEL Routine 06/12/2024 5:10 AM INSTANT POTATO PROCESSING SUPERVISOR CLINICAL PATHOLOGY REPORT Routine 06/11/2024 2:24 PM INSTANT POTATO PROCESSING SUPERVISOR CT ABDOMEN PELVIS W CONTRAST ED 06/11/2024 1:27 PM INSTANT POTATO PROCESSING SUPERVISOR ANTI-DOUBLE STRANDED DNA ANTIBODIES Routine 06/11/2024 11:59 AM INSTANT POTATO PROCESSING SUPERVISOR TONY QUALITATIVE WITH REFLEX TO TONY QUANTITATIVE Routine 06/11/2024 11:59 AM INSTANT POTATO PROCESSING SUPERVISOR FOLATE Routine 06/11/2024 11:59 AM INSTANT POTATO PROCESSING SUPERVISOR VITAMIN B12 Routine 06/11/2024 11:59 AM INSTANT POTATO PROCESSING SUPERVISOR HIV 1/2 ANTIBODY PLUS P24 ANTIGEN Routine 06/11/2024 11:59 AM INSTANT POTATO PROCESSING SUPERVISOR HEPATITIS PANEL, ACUTE Routine 06/11/2024 11:59 AM INSTANT POTATO PROCESSING SUPERVISOR SLIDE REVIEW - PATHOLOGIST Routine 06/11/2024 5:34 AM INSTANT POTATO PROCESSING SUPERVISOR EGFR Routine 06/11/2024 5:34 AM INSTANT POTATO PROCESSING SUPERVISOR DIFFERENTIAL AUTO Routine 06/11/2024 5:3 4 AM INSTANT POTATO PROCESSING SUPERVISOR CBC WITH AUTO DIFFERENTIAL Routine 06/11/2024 5:34 AM INSTANT POTATO PROCESSING SUPERVISOR BASIC METABOLIC PANEL Routine 06/11/2024 5:34 AM INSTANT POTATO PROCESSING SUPERVISOR POCT GLUCOSE DEVICE Routine 06/11/2024 3 :01 AM INSTANT POTATO PROCESSING SUPERVISOR EGFR STAT 06/10/2024 7:50 AM INSTANT POTATO PROCESSING SUPERVISOR DIFFERENTIAL AUTO STAT 06/10/2024 7:5 0 AM INSTANT POTATO PROCESSING SUPERVISOR BASIC METABOLIC PANEL STAT 06/10/2024 7:50 AM INSTANT POTATO PROCESSING SUPERVISOR CBC WITH AUTO DIFFERENTIAL STAT 06/10/2024 7:50 AM INSTANT POTATO PROCESSING SUPERVISOR ETHANOL STAT 06/09/2024 2:55 PM INSTANT POTATO PROCESSING SUPERVISOR APTT STAT 06/09/2024 2:55 PM INSTANT POTATO PROCESSING SUPERVISOR PROTIME-INR STAT 06/09/2024 2:55 PM INSTANT POTATO PROCESSING SUPERVISOR LIPASE STAT 06/09/2024 2:55 PM INSTANT POTATO PROCESSING SUPERVISOR AMYLASE STAT 06/09/2024 2:55 PM INSTANT POTATO PROCESSING SUPERVISOR EGFR STAT 06/09/2024 8:33 AM INSTANT POTATO PROCESSING SUPERVISOR DRUGS OF ABUSE SCREEN, URINE WITHOUT CONFIRMATION STAT 06/09/2024 8:33 AM INSTANT POTATO PROCESSING SUPERVISOR CBC WITHOUT DIFFERENTIAL STAT 06/09/2024 8:33 AM INSTANT POTATO PROCESSING SUPERVISOR COMPREHENSIVE METABOLIC PANEL STAT 06/09/2024 8:33 AM INSTANT POTATO PROCESSING SUPERVISOR EGFR Routine 05/05/2024 12:12 PM INSTANT POTATO PROCESSING SUPERVISOR CBC WITHOUT DIFFERENTIAL Routine 05/05/2024 12:12 PM INSTANT POTATO PROCESSING SUPERVISOR COMPREHENSIVE METABOLIC PANEL Routine 05/05/2024 12:12 PM INSTANT POTATO PROCESSING SUPERVISOR TRANSTHORACIC ECHO (TTE) COMPLETE W DOPPLER/CF WO CONTRAST Routine 05/04/2024 7:30 AM INSTANT POTATO PROCESSING SUPERVISOR US UPPER EXTREMITY RIGHT LIMITED IP Routine 05/03/2024 2:05 PM INSTANT POTATO PROCESSING SUPERVISOR BLOOD CULTURE Routine 05/03/2024 1:35 PM INSTANT POTATO PROCESSING SUPERVISOR BLOOD CULTURE Routine 05/03/2024 11:25 AM INSTANT POTATO PROCESSING SUPERVISOR TROPONIN T HIGH-SENSITIVITY 6-HOUR Timed 05/02/2024 11:01 AM INSTANT POTATO PROCESSING SUPERVISOR TROPONIN T HIGH-SENSITIVITY 2-HOUR Timed 05/02/2024 6:37 AM INSTANT POTATO PROCESSING SUPERVISOR TROPONIN T HIGH-SENSITIVITY SERIES (BASELINE, 2HR, 4HR, 6HR) Routine 05/02/2024 4:17 AM INSTANT POTATO PROCESSING SUPERVISOR ECG 12-LEAD Routine 05/02/2024 2:17 AM INSTANT POTATO PROCESSING SUPERVISOR US ABDOMEN LIMITED IP Routine 05/01/2024 3: 50 PM INSTANT POTATO PROCESSING SUPERVISOR APTT STAT 05/01/2024 2:50 PM INSTANT POTATO PROCESSING SUPERVISOR PROTIME-INR STAT 05/01/2024 2:50 PM INSTANT POTATO PROCESSING SUPERVISOR URINALYSIS, MICROSCOPIC ONLY Routine 05/01/2024 10:44 AM INSTANT POTATO PROCESSING SUPERVISOR URINALYSIS AND REFLEX TO MICROSCOPIC AND CULTURE Routine 05/01/2024 10:44 AM INSTANT POTATO PROCESSING SUPERVISOR RESPIRATORY PATHOGEN PANEL Routine 05/01/2024 10:04 AM INSTANT POTATO PROCESSING SUPERVISOR XR CHEST 1 VIEW IP Routine 05/01/2024 9:53 AM INSTANT POTATO PROCESSING SUPERVISOR EGFR STAT 05/01/2024 8:52 AM INSTANT POTATO PROCESSING SUPERVISOR LACTATE STAT 05/01/2024 8:52 AM INSTANT POTATO PROCESSING SUPERVISOR COMPREHENSIVE METABOLIC PANEL STAT 05/01/2024 8:52 AM INSTANT POTATO PROCESSING SUPERVISOR CBC WITHOUT DIFFERENTIAL STAT 05/01/2024 8:52 AM INSTANT POTATO PROCESSING SUPERVISOR BLOOD CULTURE Routine 04/30/2024 8:47 PM INSTANT POTATO PROCESSING SUPERVISOR BLOOD CULTURE Routine 04/30/2024 8:47 PM INSTANT POTATO PROCESSING SUPERVISOR MRI LUMBAR SPINE WO CONTRAST IP Routine 04/30/2024 2:26 PM INSTANT POTATO PROCESSING SUPERVISOR CT ABDOMEN PELVIS W CONTRAST IP Routine 04/29/2024 9:22 AM INSTANT POTATO PROCESSING SUPERVISOR EGFR Routine 04/29/2024 4:53 AM INSTANT POTATO PROCESSING SUPERVISOR DIFFERENTIAL AUTO Routine 04/29/2024 4:5 3 AM INSTANT POTATO PROCESSING SUPERVISOR PHOSPHORUS Routine 04/29/2024 4:53 AM INSTANT POTATO PROCESSING SUPERVISOR MAGNESIUM Routine 04/29/2024 4:53 AM INSTANT POTATO PROCESSING SUPERVISOR HEPATIC FUNCTION PANEL Routine 04/29/2024 4:53 AM INSTANT POTATO PROCESSING SUPERVISOR CBC WITH AUTO DIFFERENTIAL Routine 04/29/2024 4:53 AM INSTANT POTATO PROCESSING SUPERVISOR BASIC METABOLIC PANEL Routine 04/29/2024 4:53 AM INSTANT POTATO PROCESSING SUPERVISOR HEPATIC FUNCTION PANEL Add-On 04/28/2024 1:16 PM INSTANT POTATO PROCESSING SUPERVISOR LIPASE STAT 04/28/2024 1:16 PM INSTANT POTATO PROCESSING SUPERVISOR EGFR Routine 04/26/2024 8:41 AM INSTANT POTATO PROCESSING SUPERVISOR COMPREHENSIVE METABOLIC PANEL Routine 04/26/2024 8:41 AM INSTANT POTATO PROCESSING SUPERVISOR CBC WITHOUT DIFFERENTIAL Routine 04/26/2024 8:41 AM INSTANT POTATO PROCESSING SUPERVISOR APTT STAT 04/25/2024 8:53 AM INSTANT POTATO PROCESSING SUPERVISOR PROTIME-INR STAT 04/25/2024 8:53 AM INSTANT POTATO PROCESSING SUPERVISOR MAGNESIUM Add-On 04/25/2024 8:53 AM INSTANT POTATO PROCESSING SUPERVISOR EGFR STAT 04/25/2024 8:53 AM INSTANT POTATO PROCESSING SUPERVISOR DIFFERENTIAL AUTO STAT 04/25/2024 8:5 3 AM INSTANT POTATO PROCESSING SUPERVISOR ETHANOL STAT 04/25/2024 8:53 AM INSTANT POTATO PROCESSING SUPERVISOR COMPREHENSIVE METABOLIC PANEL STAT 04/25/2024 8:53 AM INSTANT POTATO PROCESSING SUPERVISOR CBC WITH AUTO DIFFERENTIAL STAT 04/25/2024 8:53 AM INSTANT POTATO PROCESSING SUPERVISOR EGFR STAT 04/25/2024 8:33 AM INSTANT POTATO PROCESSING SUPERVISOR DRUGS OF ABUSE SCREEN, URINE WITHOUT CONFIRMATION Routine 04/25/2024 8:33 AM INSTANT POTATO PROCESSING SUPERVISOR CBC WITHOUT DIFFERENTIAL STAT 04/25/2024 8:33 AM INSTANT POTATO PROCESSING SUPERVISOR COMPREHENSIVE METABOLIC PANEL STAT 04/25/2024 8:33 AM INSTANT POTATO PROCESSING SUPERVISOR from Last 3 Months Results * eGFR (06/12/2024 5:10 AM INSTANT POTATO PROCESSING SUPERVISOR) eGFR >90 >=60 mL/min/1. 73 m2 Comment: [...] last reviewed 2021. Blood 06/12/2024 5:10 AM INSTANT POTATO PROCESSING SUPERVISOR 06/12/2024 5:38 AM INSTANT POTATO PROCESSING SUPERVISOR Dana Maradiaga MD LAB BLOOD ORDERABLE S Final Result [facility] ([place]) 1 [facility] Department of Laboratories [place], [place] [id number] * (ABNORMAL) Differential, auto (06/12/2024 5:10 AM INSTANT POTATO PROCESSING SUPERVISOR) Neutrophil abs 1.4(L) 1.5 - 6.5 K/cumm [...] revised on 2017. Blood 06/12/2024 5:10 AM INSTANT POTATO PROCESSING SUPERVISOR 06/12/2024 5:38 AM INSTANT POTATO PROCESSING SUPERVISOR Dana Maradiaga MD LAB BLOOD ORDERABLE S Final Result [facility] ([place]) 1 [facility] Department [place] [address] * (ABNORMAL) CBC with auto differential (06/12/2024 5:10 AM INSTANT POTATO PROCESSING SUPERVISOR) WBC 2.8(L) 3.8 - 9.9 K/cumm Hgb 12.7 11.9 - 15.5 g/dL [facility] ([place]) Hct 37.3 35.6 - 45.5 % [facility] ([place]) Plt 84(L) 150 - 400 K/cumm [facility] ([place]) MPV 10.5 9.1 - 12.3 fL [facility] ([place]) RBC 3.92 3.90 - 5.20 M/cumm [facility] ([place]) MCV 95.2 81.3 - 96.4 fL [facility] ([place]) MCH 32.4 27.1 - 33.3 pg [facility] ([place]) MCHC 34.0 32.3 - 35.7 g/dL [facility] ([place]) RDW CV 14.8 11.1 - 14.9 % [facility] ([place]) RDW SD 51.8(H) 35.7 - 48.1 fL [facility] ([place]) NRBC abs 0.00 0.00 - 0.01 K/cumm [facility] ([place]) Blood 06/12/2024 5:10 AM INSTANT POTATO PROCESSING SUPERVISOR 06/12/2024 5:38 AM INSTANT POTATO PROCESSING SUPERVISOR Dana Maradiaga MD LAB BLOOD ORDERABLE S Final Result [facility] ([place]) 1 [facility] Department of Laboratories [place] [id number] * (ABNORMAL) Basic metabolic panel (06/12/2024 5:10 AM INSTANT POTATO PROCESSING SUPERVISOR) Sodium 141 135 - 145 mmol/L Potassium, pl 3.7 3.3 - 4.9 mmol/L [facility] ([place]) Chloride 107 97 - 110 mmol/L [facility] ([place]) CO2 21(L) 22 - 32 mmol/L [facility] ([place]) Anion gap 13 2 - 15 mmol/L [facility] ([place]) BUN 15 6 - 25 mg/dL [facility] ([place]) Creatinine 0.61 0.60 - 1.10 mg/dL [facility] ([place]) Glucose 109 70 - 199 mg/dL [facility] ([place]) Comment: Interpretive Data Fasting [...] 9.0 8.5 - 10.3 mg/dL [facility] ([place]) Blood 06/12/2024 5:10 AM INSTANT POTATO PROCESSING SUPERVISOR 06/12/2024 5:38 AM INSTANT POTATO PROCESSING SUPERVISOR us Dana Maradiaga MD LAB BLOOD ORDERABLE S Final Result [facility] ([place]) 1 [facility] [place] [address] * Clinical pathology report (06/11/2024 2:24 PM INSTANT POTATO PROCESSING SUPERVISOR) Miscellaneous 06/11/2024 2:2 4 PM INSTANT POTATO PROCESSING SUPERVISOR 06/11/2024 2:24 PM INSTANT POTATO PROCESSING SUPERVISOR Narrative 06/12/2024 8:53 AM INSTANT POTATO PROCESSING SUPERVISOR EPIC results best viewed via link to PDF [facility] Department of Pathology [address] [place] [address] Final Report Note to Patients: This report [...] details. Patient Name: LATRICE VALENCIA Address: [address] [place] [address] Gender: F : 1975 (Age: 49) Service: Medical Location: [facility] Hospital #: [id number] Patient Type: [facility] Taken: 06/11/2024 Received: 06/11/2024 Accessioned: 06/11/2024 Physician(s): [...] determined by the Surgical Pathology Department at [facility] as part of an ongoing quality assurance assessor program and in compliance with federally mandated [...] characteristics determined by the Surgical Pathology Department [facility]. It has not been cleared or approved by the U. S. Food and Drug Administration. REPORT IMAGES AND SCANNED DOCUMENTS, IF INCLUDED, ONLY VIEWABLE IN PDF VERSION OF REPORTe o Dana Maradiaga MD LAB PATHOLOGY ORDER LOPEZ Final Result * CT Abdomen Pelvis W Contrast (06/11/2024 1:27 PM INSTANT POTATO PROCESSING SUPERVISOR) Anatomical Region Laterality Modality Body N/A Computed Tomogra phy 06/11/2024 1:34 PM INSTANT POTATO PROCESSING SUPERVISOR Narrative 06/11/2024 1:47 PM INSTANT POTATO PROCESSING SUPERVISOR EXAM DESCRIPTION: CT ABDOMEN PELVIS W CONTRAST [...] Galaviz M.D. AG: MARIA LUISA Report ID: [id number] Reading Location: [id number] Procedure Note Eber Galaviz MD - 06/11/2024 [...] Eber Galaviz M.D. AG: AG Report ID: [id number] Reading Location: [place] [address] Dana Maradiaga MD IMG CT PROCEDURES F inal Result * (ABNORMAL) TONY ab ql w/rflx to TONY qn (06/11/2024 11:59 AM INSTANT POTATO PROCESSING SUPERVISOR) TONY Positive 1:320 Comment: Interpretive Data Normal [...] last revised on 2019. Testing performed by: [facility], [address] [place] [address]., [id number] TONY, quant 1:320 titer [facility] ([place]) Comment:Testing performed by : [facility], [address] [place]., [address] TONY, interp Speckled(A) [facility] ([place]) Comment:Testing performed by : [address] [address] Blood 06/11/2024 11:5 9 AM INSTANT POTATO PROCESSING SUPERVISOR 06/11/2024 2:52 PM INSTANT POTATO PROCESSING SUPERVISOR Dana Maradiaga MD LAB BLOOD ORDERABLE S Final Result [facility] ([place]) 1 [facility] [place] [address] * Anti-double stranded DNA abs (06/11/2024 11:59 AM INSTANT POTATO PROCESSING SUPERVISOR) dsDNA Ab <1.0 <=4.0 IUnits/mL Comment: Interpretive Data Negative: < or = 4 IUnits/mL Indeterminate: 5 - 9 IUnits/mL Positive: > or = 10 IUnits/mL Current interpretive data was last revised on 2016. Testing performed by: [facility], [address] [place] [address], [id number] Blood 06/11/2024 11:5 9 AM INSTANT POTATO PROCESSING SUPERVISOR 06/11/2024 2:52 PM INSTANT POTATO PROCESSING SUPERVISOR Dana Maradiaga MD LAB BLOOD ORDERABLE S Final Result Performing Organization Address [facility] de Phone Number [facility] ([place]) 1 [facility] [place] [address] * HIV 1/2 Antibody plus p24 Antigen Blood (06/11/2024 11:59 AM INSTANT POTATO PROCESSING SUPERVISOR) Pathologist [facility] HIV 1/2 ab + p24 ag Nonreactive Nonreactive Comment: Nonreactive for HIV-1 antigen and HIV-1/HIV-2 antibodies. No laboratory evidence of HIV infection. If acute HIV infection is suspected, consider testing for HIV-1 RNA. Testing performed by: [facility], [address] [place] [address]., [id number] Blood 06/11/2024 11:5 9 AM INSTANT POTATO PROCESSING SUPERVISOR 06/11/2024 1:56 PM INSTANT POTATO PROCESSING SUPERVISOR Dana Maradiaga MD LAB MICROBIOLOGY - GENERAL ORDERABLES Final Result Performing Organization Address City/[facility] Co de Phone Number [facility] ([place]) 1 [facility] [place] [address] * Hepatitis panel, acute Blood (06/11/2024 11:59 AM INSTANT POTATO PROCESSING SUPERVISOR) Hep A IgM Nonreactive Nonreactive Comment: Interpretive Data: If Hep A IgM Ab is reported as Equivocal, a new sample should be drawn in two weeks for testing. Current interpretive data was last revised on 19. Testing performed by: [facility], [address] [place] [address]., [id number] Hep B core IgM Nonreactive Nonreactive [facility] ([place]) Comment: Interpretive Data If HepB Core IgM Ab is reported as Equivocal, a new sample should be drawn in two weeks for testing. Current interpretive data was last revised on 19. Testing performed by: [facility], [address] [place] [address]., [id number] Hep C Ab Nonreactive Nonreactive [facility] [...] on 2019. Testing performed by: [facility], [address] [place] [address]., [id number] HepBsAg Nonreactive Nonreactive [facility] ([place]) Comment:Testing performed by : [address] [address] Blood 06/11/2024 11:5 9 AM INSTANT POTATO PROCESSING SUPERVISOR 06/11/2024 1:56 PM INSTANT POTATO PROCESSING SUPERVISOR Dana Maradiaga MD LAB MICROBIOLOGY - GENERAL ORDERABLES Final Result [facility] ([place]) 1 [facility] Department [place] [address] * Folate (06/11/2024 11:59 AM INSTANT POTATO PROCESSING SUPERVISOR) Folic acid >20.0 >=5.0 ng/mL Comment:Slightly Hemolyzed S pecimen. Results may be affected. Blood 06/11/2024 11:5 9 AM INSTANT POTATO PROCESSING SUPERVISOR 06/11/2024 12:25 PM INSTANT POTATO PROCESSING SUPERVISOR us Dana Maradiaga MD LAB BLOOD ORDERABLE S Final Result [facility] ([place]) 1 [facility] [place] [address] * Vitamin B12 (06/11/2024 11:59 AM INSTANT POTATO PROCESSING SUPERVISOR) Vitamin B12 630 230 - 1,250 pg/mL Blood 06/11/2024 11:5 9 AM INSTANT POTATO PROCESSING SUPERVISOR 06/11/2024 12:25 PM INSTANT POTATO PROCESSING SUPERVISOR Dana Maradiaga MD LAB BLOOD ORDERABLE S Final Result Performing Organization Address [facility] Co de Phone Number [facility] ([place]) 1 [facility] [place] [address] * Slide review - pathologist (06/11/2024 5:34 AM INSTANT POTATO PROCESSING SUPERVISOR) Slide review by Dr Vaughn Diop Comment: [facility] # [id number] Interpretive Data See Clinical Pathology Report under Media section in EPIC. Current Interpretive Data was last revised on 2018. Blood 06/11/2024 5:34 AM INSTANT POTATO PROCESSING SUPERVISOR 06/11/2024 11:19 AM INSTANT POTATO PROCESSING SUPERVISOR us Dana Maradiaga MD LAB BLOOD ORDERABLE S Final Result Performing Organization Address City/[facility]/ZIP Co de Phone Number [facility] ([place]) 1 [facility] [place] [address] * eGFR (06/11/2024 5:34 AM INSTANT POTATO PROCESSING SUPERVISOR) eGFR >90 >=60 mL/min/1. 73 m2 Comment: [...] last reviewed 2021. Blood 06/11/2024 5:34 AM INSTANT POTATO PROCESSING SUPERVISOR 06/11/2024 5:59 AM INSTANT POTATO PROCESSING SUPERVISOR Dana Maradiaga MD LAB BLOOD ORDERABLE S Final Result [facility] ([place]) 1 [facility] Department of Laboratories [place], [place] [id number] * (ABNORMAL) Differential, auto (06/11/2024 5:34 AM INSTANT POTATO PROCESSING SUPERVISOR) Neutrophil abs 1.0(L) 1.5 - 6.5 K/cumm [...] revised on 2017. Blood 06/11/2024 5:34 AM INSTANT POTATO PROCESSING SUPERVISOR 06/11/2024 5:57 AM INSTANT POTATO PROCESSING SUPERVISOR Dana Maradiaga MD LAB BLOOD ORDERABLE S Final Result [facility] ([place]) 1 [facility] Department [place] [address] * (ABNORMAL) CBC with auto differential (06/11/2024 5:34 AM INSTANT POTATO PROCESSING SUPERVISOR) WBC 2.6(L) 3.8 - 9.9 K/cumm Hgb [...] [facility] ([place]) Blood 06/11/2024 5:34 AM INSTANT POTATO PROCESSING SUPERVISOR 06/11/2024 5:57 AM INSTANT POTATO PROCESSING SUPERVISOR Dana Maradiaga MD LAB BLOOD ORDERABLE S Final Result [facility] ([place]) 1 [facility] Department of Laboratories [place] [id number] * (ABNORMAL) Basic metabolic panel (06/11/2024 5:34 AM INSTANT POTATO PROCESSING SUPERVISOR) Sodium 140 135 - 145 mmol/L Potassium, pl 4.1 3.3 - 4.9 mmol/L [facility] ([place]) Chloride 108 97 - 110 mmol/L [facility] ([facility]) CO2 23 22 - 32 mmol/L [facility] ([facility]) Anion gap 9 2 - 15 mmol/L [facility] ([place]) BUN 15 6 - 25 mg/dL [facility] ([place]) Creatinine 0.54(L) 0.60 - 1.10 [...] 9.1 8.5 - 10.3 mg/dL [facility] ([place]) Blood 06/11/2024 5:34 AM INSTANT POTATO PROCESSING SUPERVISOR 06/11/2024 5:59 AM INSTANT POTATO PROCESSING SUPERVISOR Dana Maradiaga MD LAB BLOOD ORDERABLE S Final Result [facility] ([place]) 1 [facility] [employer] [place] [address] * POCT glucose (06/11/2024 3:01 AM INSTANT POTATO PROCESSING SUPERVISOR) Glucose, POC 92 70 - 199 mg/dL Blood 06/11/2024 3:01 AM INSTANT POTATO PROCESSING SUPERVISOR 06/11/2024 3:01 AM INSTANT POTATO PROCESSING SUPERVISOR Dana Maradiaga MD LAB POCT ORDERABLES - DEVICE Final Result Performing Organization Address City/[facility]/ZIP Co de Phone Number AMIE [facility] ([place]) 1 [facility] [employer] [place] [address] * eGFR (06/10/2024 7:50 AM INSTANT POTATO PROCESSING SUPERVISOR) eGFR >90 >=60 mL/min/1. 73 m2 Comment: [...] last reviewed 2021. Blood 06/10/2024 7:50 AM INSTANT POTATO PROCESSING SUPERVISOR 06/10/2024 8:39 AM INSTANT POTATO PROCESSING SUPERVISOR us Dana Maradiaga MD LAB BLOOD ORDERABLE S Final Result AMIE [facility] ([place]) 1 [facility] [place] [address] * Differential, auto (06/10/2024 7:50 AM INSTANT POTATO PROCESSING SUPERVISOR) Neutrophil abs 1.5 1.5 - 6.5 K/cumm [...] revised on 2017. Blood 06/10/2024 7:50 AM INSTANT POTATO PROCESSING SUPERVISOR 06/10/2024 8:39 AM INSTANT POTATO PROCESSING SUPERVISOR Lesleehikeisha Maradiaga MD LAB BLOOD ORDERABLE S Final Result AMIE [facility] ([place]) 1 [facility] Department [place] [address] * (ABNORMAL) CBC with auto differential (06/10/2024 7:50 AM INSTANT POTATO PROCESSING SUPERVISOR) WBC 3.2(L) 3.8 - 9.9 K/cumm Hgb 12.7 11.9 - 15.5 g/dL [facility] ([place]) Hct 37.7 35.6 - 45.5 % CERNER [...] [facility] ([place]) Blood 06/10/2024 7:50 AM INSTANT POTATO PROCESSING SUPERVISOR 06/10/2024 8:39 AM INSTANT POTATO PROCESSING SUPERVISOR us Dana Maradiaga MD LAB BLOOD ORDERABLE S Final Result [facility]IE [facility] ([place]) 1 [facility] Department [place] [address] * (ABNORMAL) Basic metabolic panel (06/10/2024 7:50 AM INSTANT POTATO PROCESSING SUPERVISOR) Sodium 137 135 - 145 mmol/L Potassium, [...] (ALLI) Glucose 90 70 - 199 mg/dL [facility] ([place]) Comment: Interpretive Data Fasting glucose [...] [facility] ([place]) Blood 06/10/2024 7:50 AM INSTANT POTATO PROCESSING SUPERVISOR 06/10/2024 8:39 AM INSTANT POTATO PROCESSING SUPERVISOR Dana Maradiaga MD LAB BLOOD ORDERABLE S Final Result Performing Organization Address City/[facility]/ZIP Co de Phone Number AMIE BrookeBOYLE) 1 [facility] [place] [address] * aPTT (06/09/2024 2:55 PM INSTANT POTATO PROCESSING SUPERVISOR) aPTT 32 28 - 38 sec AMIE RENAE ([place]) Comment: Interpretive Data Heparin therapeutic range: 66.0 - 100.0 seconds. Range based on correlation with therapeutic heparin activity range of 0.3 - 0.7 Units/mL. Current interpretive data was last revised on 2023. Blood 06/09/2024 2:55 PM INSTANT POTATO PROCESSING SUPERVISOR 06/09/2024 3:01 PM INSTANT POTATO PROCESSING SUPERVISOR Dana Maradiaga MD LAB BLOOD ORDERABLE S Final Result Performing Organization Address City/[facility]/ZIP Co de Phone Number AMIE RENAE ([place]) 1 [facility] [place] [address] * Protime-INR (06/09/2024 2:55 PM INSTANT POTATO PROCESSING SUPERVISOR) PT 11.4 9.7 - 13.0 sec AMIE RENAE ([place]) INR 1.05 0.90 - 1.20 AMIE [facility] ([place]) Comment: Interpretive data Oral anticoagulant therapeutic ranges: Venous thromboembolism prophylaxis or treatment: 2.0-3.0 CARDIOLOGY Standard range: 2.0-3.0 High-intensity range: 2.5-3.5 Refer to indication-specific guidelines for appropriate target ranges for prosthetic heart valve replacement. Current interpretive data was last revised on 2019. Blood 06/09/2024 2:55 PM INSTANT POTATO PROCESSING SUPERVISOR 06/09/2024 3:01 PM INSTANT POTATO PROCESSING SUPERVISOR Dana Maradiaga MD LAB BLOOD ORDERABLE S Final Result AMIE RENAE ([place]) 1 [place] [address] * Lipase (06/09/2024 2:55 PM INSTANT POTATO PROCESSING SUPERVISOR) Lipase 92 10 - 99 Units/L Blood 06/09/2024 2:55 PM INSTANT POTATO PROCESSING SUPERVISOR 06/09/2024 3:01 PM INSTANT POTATO PROCESSING SUPERVISOR Dana Maradiaga MD LAB BLOOD ORDERABLE S Final Result Performing Organization Address [facility] Co de Phone Number AMIE RENAE ([place]) 1 [facility] [place] [address] * Amylase (06/09/2024 2:55 PM INSTANT POTATO PROCESSING SUPERVISOR) Amylase 58 30 - 99 Units/L Blood 06/09/2024 2:55 PM INSTANT POTATO PROCESSING SUPERVISOR 06/09/2024 3:01 PM INSTANT POTATO PROCESSING SUPERVISOR Dana Maradiaga MD LAB BLOOD ORDERABLE S Final Result Performing Organization Address [facility] de Phone Number AMIE RENAE ([place]) 1 [place] [address] * Ethanol (06/09/2024 2:55 PM INSTANT POTATO PROCESSING SUPERVISOR) Ethanol <10 <=10 mg/dL Comment: Interpretive Data Legal limit of intoxication > or = 80 mg/dL Levels > or = 400 mg/dL are potentially TOXIC. Current interpretive data was last revised on 2018. Blood 06/09/2024 2:55 PM INSTANT POTATO PROCESSING SUPERVISOR 06/09/2024 3:01 PM INSTANT POTATO PROCESSING SUPERVISOR Dana Maradiaga MD LAB BLOOD ORDERABLE S Final Result AMIE RENAE ([place]) 1 [facility] Department [place] [address] * eGFR (06/09/2024 8:33 AM INSTANT POTATO PROCESSING SUPERVISOR) eGFR >90 >=60 mL/min/1. 73 m2 Comment: [...] last reviewed 2021. Blood 06/09/2024 8:33 AM INSTANT POTATO PROCESSING SUPERVISOR 06/09/2024 8:36 AM INSTANT POTATO PROCESSING SUPERVISOR us Jesenia Mckeon MD LAB BLOOD ORDERABLES Final Re sult AMIE RENAE [place]) 1 [facility] [place] [address] * (ABNORMAL) Drugs of Abuse Screen, Urine without Confirmation (06/09/2024 8:33 AM INSTANT POTATO PROCESSING SUPERVISOR) Amphetamine, ur Screen Positive, presumptive (A) CutOff [...] revised on 2017. Urine 06/09/2024 8:33 AM INSTANT POTATO PROCESSING SUPERVISOR 06/09/2024 9:03 AM INSTANT POTATO PROCESSING SUPERVISOR Narrative AMIE RENAE ([place]I) - 06/09/2024 9:31 AM INSTANT POTATO PROCESSING SUPERVISOR Drug of Abuse screening is performed by immunoassay for medical purposes only. This is not to be used for Pain Management purposes. us Jesenia Mckeon MD LAB URINE ORDERABLES Final Re sult AMIE BrookeALLI) 1 [facility] Department of Laboratories [place], [place] [id number] * (ABNORMAL) CBC without differential (06/09/2024 8:33 AM INSTANT POTATO PROCESSING SUPERVISOR) WBC 5.2 3.8 - 9.9 K/cumm Hgb [...] NRBC abs 0.00 0.00 - 0.01 K/cumm [facility] ([place]) Blood 06/09/2024 8:33 AM INSTANT POTATO PROCESSING SUPERVISOR 06/09/2024 8:36 AM INSTANT POTATO PROCESSING SUPERVISOR us Jesenia Mckeon MD LAB BLOOD ORDERABLES Final Re sult AMIE [facility] ([place]) 1 [facility] Department [place] [address] * (ABNORMAL) Comprehensive metabolic panel (06/09/2024 8:33 AM INSTANT POTATO PROCESSING SUPERVISOR) Sodium 140 135 - 145 mmol/L Potassium, pl 3.5 3.3 - 4.9 mmol/L [facility] ([place]) Chloride 105 97 - 110 mmol/L [facility] ([place]) CO2 21(L) 22 - 32 mmol/L [facility] ([place]) Anion gap 14 2 - 15 mmol/L [facility] ([place]) BUN 13 6 - 25 mg/dL [facility] ([place]) Creatinine 0.67 0.60 - 1.10 mg/dL [facility] ([place]) Glucose 127 70 - 199 mg/dL [facility] ([place]) Comment: Interpretive Data Fasting glucose [...] [facility] ([place]) Blood 06/09/2024 8:33 AM INSTANT POTATO PROCESSING SUPERVISOR 06/09/2024 8:36 AM INSTANT POTATO PROCESSING SUPERVISOR us Jesenia Mckeon MD LAB BLOOD ORDERABLES Final Re sult [facility]IE [facility] ([place]) 1 [facility] Department [place] [address] * eGFR (05/05/2024 12:12 PM INSTANT POTATO PROCESSING SUPERVISOR) eGFR >90 >=60 mL/min/1. 73 m2 Comment: [...] reviewed 2021. Blood 05/05/2024 12:1 2 PM INSTANT POTATO PROCESSING SUPERVISOR 05/05/2024 12:26 PM INSTANT POTATO PROCESSING SUPERVISOR Shara Yates DO LAB BLOOD ORDERABLES F inal Result [facility] ([place]) 1 [facility] Department [place] [address] * (ABNORMAL) CBC without differential (05/05/2024 12:12 PM INSTANT POTATO PROCESSING SUPERVISOR) WBC 4.3 3.8 - 9.9 K/cumm Hgb [...] [facility]H (ALLI) Blood 05/05/2024 12:1 2 PM INSTANT POTATO PROCESSING SUPERVISOR 05/05/2024 12:26 PM INSTANT POTATO PROCESSING SUPERVISOR Shara Serrano [facility] DO LAB BLOOD ORDERABLES F inal Result AMIE [facility] ([place]) 1 [facility] Department [place] [address] * (ABNORMAL) Comprehensive metabolic panel (05/05/2024 12:12 PM INSTANT POTATO PROCESSING SUPERVISOR) Sodium 138 135 - 145 mmol/L Potassium, [...] [facility]H ([place]I) Blood 05/05/2024 12:1 2 PM INSTANT POTATO PROCESSING SUPERVISOR 05/05/2024 12:26 PM INSTANT POTATO PROCESSING SUPERVISOR us Shara Yates DO LAB BLOOD ORDERABLES F inal Result AMIE RENAE ([place]) 1 [facility] [place] [address] * TRANSTHORACIC ECHO (TTE) COMPLETE W DOPPLER/CF WO CONTRAST (05/04/2024 7:30 AM INSTANT POTATO PROCESSING SUPERVISOR) LV EF 60-65 % CONS SCIMAGE Anatomical Region Laterality Modality Ultrasound 05/04/2024 7:13 AM INSTANT POTATO PROCESSING SUPERVISOR Narrative 05/04/2024 4:47 PM INSTANT POTATO PROCESSING SUPERVISOR [address] [address] Echocardiogram Report Patient Name: LATRICE VALENCIA : 1975 Study Date: 05/04/2024 7:13:46 AM Gender: F Tech: Location: [id number] Ref Provider: SHARA YATES Height(Cm): 165 BSA: [...] By: Kwaku Blanco MD 05/04/2024 4:46:44 PM INSTANT POTATO PROCESSING SUPERVISOR Procedure Note Kwaku Blanco MD - 05/04/[address] [address] Echocardiogram Report Patient Name: LATRICE VALENCIA : 1975 Study Date: 05/04/2024 7:13:46 AM Gender: F Tech: Location: [id number] Ref Provider: SHARA YATES Height(Cm): 165 BSA: [...] By: Kwaku Blanco MD 05/04/2024 4:46:44 PM INSTANT POTATO PROCESSING SUPERVISOR us Shara Serrano [facility] DO CV ECHO PROCEDURES Fin al Result * US Upper Extremity Right Limited (05/03/2024 2:05 PM INSTANT POTATO PROCESSING SUPERVISOR) Anatomical Region Laterality Modality Upper Extremities Right Ultrasound 05/03/2024 4:48 PM INSTANT POTATO PROCESSING SUPERVISOR Narrative 05/03/2024 4:51 PM INSTANT POTATO PROCESSING SUPERVISOR EXAM DESCRIPTION: US UPPER EXTREMITY RIGHT LIMITED REASON FOR STUDY: Patient with cellulitis at site of right forearm prior IV site. Firmness at this area, wanting to rule out an abscess. TECHNIQUE: A Dynamic assessment was performed of the soft tissues in the right elbow region by the welder plastic, with selected grayscale and color Doppler images acquired and recorded in PACS. COMPARISON: None FINDINGS: Thrombus is seen within a superficial vein within the region of concern, with prominent peripheral vascularity. IMPRESSION: Superficial thrombophlebitis within the region of concern. THIS IS AN ELECTRONICALLY VERIFIED FINAL REPORT 05/03/2024 4:51 PM - Electronically signed by Boyd Cook M.D. KR: CHANG Report ID: [id number] Reading Location: [id number] Procedure Note Boyd Cook MD - 05/03/2024 EXAM DESCRIPTION: US UPPER EXTREMITY RIGHT LIMITED REASON FOR STUDY: Patient with cellulitis at site of right forearm priorIV site. Firmness at this area, wanting to rule out an abscess. TECHNIQUE: A Dynamic assessment was performed of the soft tissues in theright elbow region by the welder plastic, with selected grayscale and color Doppler images acquired and recorded in PACS. COMPARISON: None FINDINGS: Thrombus is seen within a superficial vein within the region of concern,with prominent peripheral vascularity. IMPRESSION: Superficial thrombophlebitis within the region of concern. THIS IS AN ELECTRONICALLY VERIFIED FINAL REPORT 05/03/2024 4:51 PM - Electronically signed by Boyd DOWNING: CHANG Report ID: [id number] Reading Location: [id number] Shara Yates DO IMG US PROCEDURES Maeve l Result * Blood culture Blood (05/03/2024 1:35 PM INSTANT POTATO PROCESSING SUPERVISOR) Report Final Report: No growth Comment:Testing performed by : [facility], 1 [facility] [place]., [address] Blood 05/03/2024 1:35 PM INSTANT POTATO PROCESSING SUPERVISOR 05/03/2024 4:30 PM INSTANT POTATO PROCESSING SUPERVISOR Narrative AMIE RENAE ([place]I) - 05/08/2024 7:00 AM INSTANT POTATO PROCESSING SUPERVISOR From a different site than #1. Collection->Peripheral [...] performance characteristics have been verified by the [facility] Microbiology Laboratory. For questions about this culture, contact the Microbiology Laboratory at [phone]. Interpretive data was last revised on 24. us Shara Yates DO LAB MICROBIOLOGY - GEN ERAL ORDERABLES Final Result AMIE OC (ALLI) 1 [facility] Department [place] [address] * Blood culture Blood (05/03/2024 11:25 AM INSTANT POTATO PROCESSING SUPERVISOR) Report Final Report: No growth Comment:Testing performed by : [facility], 1 [facility], [place]., [address] Blood 05/03/2024 11:2 5 AM INSTANT POTATO PROCESSING SUPERVISOR 05/03/2024 1:53 PM INSTANT POTATO PROCESSING SUPERVISOR Narrative AMIE RENAE ([place]) - 05/07/2024 4:00 PM INSTANT POTATO PROCESSING SUPERVISOR Collection->Peripheral 1. Blood cultures are incubated for [...] performance characteristics have been verified by the [facility] Microbiology Laboratory. For questions about this culture, contact the Microbiology Laboratory at [phone]. Interpretive data was last revised on 24. Shara Yates DO LAB MICROBIOLOGY - GEN ERAL ORDERABLES Final Result AMIE RENAE ([place]) 1 [facility] Department [place] [address] * Troponin T high-sensitivity 6-hour (05/02/2024 11:01 AM INSTANT POTATO PROCESSING SUPERVISOR) Trop T hs <6 <=14 ng/L Comment: Interpretive Data For further hscTnT resources including the diagnostic algorithm and an aid in interpretation, copy and paste this link: https://nrl.testcatalog.org/show/hsTrop Current Interpretive Data last revised 2020. Trop T hs delta 0 ng/L [facility] (ALLI) Trop T hs interp Insignificant [facility] ([place]) Blood 05/02/2024 11:0 1 AM INSTANT POTATO PROCESSING SUPERVISOR 05/02/2024 11:11 AM INSTANT POTATO PROCESSING SUPERVISOR Guille Wall MD LAB BLOOD ORDERABLES Final Resu lt Performing Organization Address City/[facility] Co de Phone Number AMIE [facility] ([place]) 1 [facility] [place] [address] * Troponin T high-sensitivity 2-hour (05/02/2024 6:37 AM INSTANT POTATO PROCESSING SUPERVISOR) Trop T hs <6 <=14 ng/L Comment: Interpretive Data For further hscTnT resources including the diagnostic algorithm and an aid in interpretation, copy and paste this link: https://nrl.Prixing.org/show/hsTrop Current Interpretive Data last revised 2020. Trop T hs delta 0 ng/L [facility] ([place]) Trop T hs interp Insignificant [facility] ([place]) Blood 05/02/2024 6:37 AM INSTANT POTATO PROCESSING SUPERVISOR 05/02/2024 7:06 AM INSTANT POTATO PROCESSING SUPERVISOR Guille Wall MD LAB BLOOD ORDERABLES Final Resu lt Performing Organization Address City/[facility] Co de Phone Number AMIE RENAE (ALLI) 1 [facility] [place] [address] * Troponin T high-sensitivity series (baseline, 2hr, 4hr, 6hr) (05/02/2024 4:17 AM INSTANT POTATO PROCESSING SUPERVISOR) Trop T hs <6 <=14 ng/L Comment: Interpretive Data For further hscTnT resources including the diagnostic algorithm and an aid in interpretation, copy and paste this link: https://nrl.Prixing.org/show/hsTrop Current Interpretive Data last revised 2020. Blood 05/02/2024 4:17 AM INSTANT POTATO PROCESSING SUPERVISOR 05/02/2024 4:40 AM INSTANT POTATO PROCESSING SUPERVISOR us Guille Wall MD LAB BLOOD ORDERABLES Final Resu lt AMIE RENAE ([place]I) 1 [facility] [place] [address] * ECG 12 lead (05/02/2024 2:17 AM INSTANT POTATO PROCESSING SUPERVISOR) 05/02/2024 2:17 AM INSTANT POTATO PROCESSING SUPERVISOR Narrative [facility] - 05/02/2024 7:39 AM INSTANT POTATO PROCESSING SUPERVISOR Vent Rate: 73 bpm RR Interval: 816 msec CA Interval: 180 msec QRS Duration: 84 msec QT Interval: 397 msec QTC Interval: 423 msec P-R-T [place]: 40 - -21 - 31 degrees IMPRESSION: SINUS RHYTHM WITH SINUS ARRHYTHMIA BORDERLINE LEFT AXIS DEVIATION [QRS AXIS < -20] BORDERLINE ECG Electronically Signed By: Kwaku Blanco MD us Guille Wall MD ECG ORDERABLES Final Result Performing Organization Address [facility] Co de Phone Number [employer] [facility] * US Abdomen Limited (05/01/2024 3:50 PM INSTANT POTATO PROCESSING SUPERVISOR) Anatomical Region Laterality Modality Abdomen N/A Ultrasound 05/01/2024 5:06 PM INSTANT POTATO PROCESSING SUPERVISOR Narrative 05/01/2024 5:08 PM INSTANT POTATO PROCESSING SUPERVISOR EXAM DESCRIPTION: US ABDOMEN LIMITED REASON FOR [...] Boyd Caldwell M.D. KT: KARINA Report ID: [id number] Reading Location: [id number] Procedure Note Boyd Caldwell MD - 05/01/2024 [...] Boyd Caldwell M.D. KT: KARINA Report ID: [id number] Reading Location: [id number] Shara Yates DO IMG US PROCEDURES Maeve l Result * aPTT (05/01/2024 2:50 PM INSTANT POTATO PROCESSING SUPERVISOR) aPTT 34 28 - 38 sec AMIE JURADO) Comment: Interpretive Data Heparin therapeutic range: 66.0 - 100.0 seconds. Range based on correlation with therapeutic heparin activity range of 0.3 - 0.7 Units/mL. Current interpretive data was last revised on 2023. Blood 05/01/2024 2:50 PM INSTANT POTATO PROCESSING SUPERVISOR 05/01/2024 3:05 PM INSTANT POTATO PROCESSING SUPERVISOR Shara Yates DO LAB BLOOD ORDERABLES F inal Result AMIE JURADO) 1 [facility] [place] [address] * (ABNORMAL) Protime-INR (05/01/2024 2:50 PM INSTANT POTATO PROCESSING SUPERVISOR) PT 14.9(H) 9.7 - 13.0 sec AMIE RENAE ([place]I) INR 1.37(H) 0.90 - 1.20 [facility]IE [facility] ([place]I) Comment: Interpretive data Oral anticoagulant therapeutic ranges: Venous thromboembolism prophylaxis or treatment: 2.0-3.0 CARDIOLOGY Standard range: 2.0-3.0 High-intensity range: 2.5-3.5 Refer to indication-specific guidelines for appropriate target ranges for prosthetic heart valve replacement. Current interpretive data was last revised on 2019. Blood 05/01/2024 2:50 PM INSTANT POTATO PROCESSING SUPERVISOR 05/01/2024 3:05 PM INSTANT POTATO PROCESSING SUPERVISOR us Shara Serrano [facility] DO LAB BLOOD ORDERABLES F inal Result AMIE RENAE ([place]) 1 [facility] [place] [address] * (ABNORMAL) Urinalysis reflex to microscopic and culture Urine (05/01/2024 10:44 AM INSTANT POTATO PROCESSING SUPERVISOR) Color, ur Yellow Yellow Clarity, ur Clear [...] tendency for uric acid stone formation. Source: [facility] Instagram Current Interpretive Data was last revised on 2017 Protein, ur ql Negative Negative [facility] ([place]I) Glucose, ur ql Negative Negative [facility] ([place]) Ketones, ur Negative Negative CERNER A ([place]) Bilirubin, ur Negative Negative [facility] ([place]) Blood, ur Negative Negative [facility] ([place]) Urobilinogen, ur <2.0 <2.0 mg/dL [facility] ([place]) Nitrite, ur Negative Negative [facility] ([place]I) Leukocyte esterase, ur 1+(A) Negative [facility] ([place]) UA reflex comment Reflex to microscopic UA will be performed. CERNER [facility] ([place]I) Urine 05/01/2024 10:4 4 AM INSTANT POTATO PROCESSING SUPERVISOR 05/01/2024 10:50 AM INSTANT POTATO PROCESSING SUPERVISOR Shara Yates LAB MICROBIOLOGY - GEN ERAL ORDERABLES Final Result Performing Organization Address [facility] Co de Phone Number AMIE [facility] (ALLI) 1 [facility] [place] [address] * (ABNORMAL) Urinalysis, microscopic only (05/01/2024 10:44 AM INSTANT POTATO PROCESSING SUPERVISOR) WBC, ur 0-5 0 - 5 /HPF RBC, ur 0-2 0 - 2 /HPF AMIE [facility] ([place]I) Epithelial cells, squamous, ur 11-20(A) 0 - 5 /HPF AMIE [facility] ([place]I) Bacteria, ur Trace(A) AMIE [facility] ([place]I) Mucous, ur Present(A) CERNER A (ALLI) Culture Reflex Comment Reflex conditions for urine culture (WBC >10) not met. AMIE [facility] ([place]) Urine 05/01/2024 10:4 4 AM INSTANT POTATO PROCESSING SUPERVISOR 05/01/2024 10:50 AM INSTANT POTATO PROCESSING SUPERVISOR Shara Yates LAB URINE ORDERABLES F inal Result Performing Organization Address [facility] Co de Phone Number AMIE [facility] (ALLI) 1 [facility] [place] [address] * Respiratory pathogen panel Nasopharyngeal (05/01/2024 10:04 AM INSTANT POTATO PROCESSING SUPERVISOR) Influenza A RNA Not Detected Not Detected CH Comment:Testing performed by : [facility], [address] [place] [address], [place]., [address] Influenza B RNA Not Detected Not Detected [facility] ([facility] Comment:Testing performed by : [facility], [address] [place] [address], [place]., [address] RSV RNA Not Detected Not Detected [facility] (ALLI) Comment:Testing performed by : [facility], [address] [place] [address], [place]., [address] COVID-19 RNA Not Detected Not Detected [facility] (ALLI) Comment:Testing performed by : [facility], [address] [place] [address]., [address] Coronavirus 229E RNA Not Detected Not Detected [facility] ([place]I) Comment:Testing performed by : [facility], [address] [place] [address]., [address] Coronavirus HKU1 RNA Not Detected Not Detected [facility] ([place]I) Comment:Testing performed by : [facility], [address] [place] [address]., [address] Coronavirus NL63 RNA Not Detected Not Detected [facility] ([place]I) Comment:Testing performed by : [facility], [address] [place] [address], [address] Coronavirus OC43 RNA Not Detected Not Detected [facility] (ALLI) Comment:Testing performed by : [facility], [address] [place] [address], [address] Adenovirus DNA Not Detected Not Detected [facility] (ALLI) Comment:Testing performed by : [facility], [address] [place] [address], [phone] Metapneumovirus RNA Not Detected Not Detected [facility] (ALLI) Comment:Testing performed by : [facility], [address] [place] [address], [address] Rhinovirus/Enterov irus RNA Not Detected Not Detected [facility] ([place]) Comment:Testing performed by : [facility], [address] [place] [address], [address] Parainfluenza 1 RNA Not Detected Not Detected [facility] (ALLI) Comment:Testing performed by : [facility], [address] [place] [address], [address] Parainfluenza 2 RNA Not Detected Not Detected [facility] (ALLI) Comment:Testing performed by : [facility], [address] [place] [address], [address] Parainfluenza 3 RNA Not Detected Not Detected [facility] (ALLI) Comment:Testing performed by : [facility], [address] [place] [address], [address] Parainfluenza 4 RNA Not Detected Not Detected [facility] (ALLI) Comment:Testing performed by : [facility], [address] [place] [address], [address] B. pertussis DNA Not Detected Not Detected [facility] ([place]I) Comment:Testing performed by : [facility], [address] [place] [address]., [address] B. parapertussis DNA Not Detected Not Detected [facility] (ALLI) Comment:Testing performed by : [facility] [facility], [address] [place] [address]., [address] C. pneumoniae DNA Not Detected Not Detected [facility] (ALLI) Comment:Testing performed by : [facility], [address] [place] [address]., [address] M. pneumoniae DNA Not Detected Not Detected [facility] (ALLI) Comment: Interpretive Data The [employer] FilmArray Respiratory Panel (RP2.1) assay is a [...] patient with possible respiratory tract infection. The Ball Street[employer] RP2.1 assay has FDA clearance for testing of BOOK COVERER swabs. The performance characteristics of this assay have been determined by [facility]. Current interpretive data was last revised on 2020. Testing performed by: [facility], [address] [place] [address], [place] [address] Nasopharyngeal 05/01/2024 10 :04 AM INSTANT POTATO PROCESSING SUPERVISOR 05/01/2024 11:23 AM INSTANT POTATO PROCESSING SUPERVISOR Narrative AMIE RENAE ([place]) - 05/01/2024 12:24 PM INSTANT POTATO PROCESSING SUPERVISOR Is the Patient experiencing symptoms consistent with COVID?->Yes Surveillance testing for transplant patient?->No Shara Yates DO LAB MICROBIOLOGY - GEN ERAL ORDERABLES Final Result AMIE OC ([place]) 1 [facility] Department [place] [address] CH * XR CHEST 1 VIEW PORTABLE (05/01/2024 9:53 AM INSTANT POTATO PROCESSING SUPERVISOR) Anatomical Region Laterality Modality Body, Chest N/A Computed Radiogr aphy 05/01/2024 12:2 9 PM INSTANT POTATO PROCESSING SUPERVISOR Narrative 05/01/2024 12:30 PM INSTANT POTATO PROCESSING SUPERVISOR EXAM DESCRIPTION: XR CHEST 1 VIEW REASON [...] Dong Thorne M.D. RB: ADALID Report ID: [id number] Reading Location: [id number] Procedure Note Dong Thorne MD - 05/01/2024 [...] Dong Thorne M.D. RB: ADALID Report ID: [id number] Reading Location: [id number] Shara Yates DO IMG XR PROCEDURES Maeve l Result * Lactate (05/01/2024 8:52 AM INSTANT POTATO PROCESSING SUPERVISOR) Pathologist [facility] Lactate 1.3 0.7 - 2.0 mmol/L Blood 05/01/2024 8:52 AM INSTANT POTATO PROCESSING SUPERVISOR 05/01/2024 9:01 AM INSTANT POTATO PROCESSING SUPERVISOR Shara Yates DO LAB BLOOD ORDERABLES F inal Result [facility] [place] 1 [facility] Department [place] [address] * eGFR (05/01/2024 8:52 AM INSTANT POTATO PROCESSING SUPERVISOR) eGFR >90 >=60 mL/min/1. 73 m2 Comment: [...] last reviewed 2021. Blood 05/01/2024 8:52 AM INSTANT POTATO PROCESSING SUPERVISOR 05/01/2024 9:40 AM INSTANT POTATO PROCESSING SUPERVISOR Shara Serrano [facility] DO LAB BLOOD ORDERABLES F inal Result [facility]IE [facility] ([place]) 1 [facility] Department [place] [address] * (ABNORMAL) CBC without differential (05/01/2024 8:52 AM INSTANT POTATO PROCESSING SUPERVISOR) WBC 6.4 3.8 - 9.9 K/cumm Hgb [...] [facility] ([place]) Blood 05/01/2024 8:52 AM INSTANT POTATO PROCESSING SUPERVISOR 05/01/2024 9:40 AM INSTANT POTATO PROCESSING SUPERVISOR Shara Serrano Suzy DO LAB BLOOD ORDERABLES F inal Result AMIE [facility] ([place]) 1 [facility] Department [place] [address] * (ABNORMAL) Comprehensive metabolic panel (05/01/2024 8:52 AM INSTANT POTATO PROCESSING SUPERVISOR) Sodium 132(L) 135 - 145 mmol/L Potassium, [...] [facility] ([place]) Blood 05/01/2024 8:52 AM INSTANT POTATO PROCESSING SUPERVISOR 05/01/2024 9:40 AM INSTANT POTATO PROCESSING SUPERVISOR Shara Serrano [facility] DO LAB BLOOD ORDERABLES F inal Result AMIE RENAE ([place]) 1 [facility] Department [place] [address] * (ABNORMAL) Blood culture Blood (04/30/2024 8:47 PM INSTANT POTATO PROCESSING SUPERVISOR) Direct Specimen Exam Molecular Analysis: Methicillin-suscep tible Staphylococcus aureus (MSSA) detected by the maxx e[employer] BCID-GP panel. This test does not exclude the possibility of a mixed bacterial infection. Notification of: Methicillin-suscep tible Staphylococcus aureus (MSSA) called to and read back by: Latrice Wellington MLS ([phone]) on 05/02/2024 01:41:52 by: Frizt Kebede MLS Comment:Testing performed by : [facility], [address] [place] [address]., [address] Direct Specimen Exam Stain: Gram Positive Cocci in clusters Time to culture positivity (anaerobic media): 22.7 hours Notification of: Gram Positive Cocci in clusters called to and read back by: Latrice Wellington MLS ([phone]) on 05/01/2024 23:41:23 by: Fritz Kebede MLS Test result called to and read back by fabio stephenson on 05/02/2024 00:23:23 by latrice RENAE ([place]) Comment:Testing performed by : [facility], [address] [place] [address]., [address] Report Final Report: Staphylococcus aureus Methicillin susceptible (MSSA) by penicillin binding protein 2a (PBP2a) testing. (.) AMIE RENAE (ALLI) Comment:Testing performed by : [facility], 1 [facility], [place]., [address] Organism STAPHYLOCOCCUS AUREUS AMIE RENAE ([place]I) Blood 04/30/2024 8:47 PM INSTANT POTATO PROCESSING SUPERVISOR 05/01/2024 Narrative AMIE RENAE ([place]I) - 05/06/2024 1:15 PM INSTANT POTATO PROCESSING SUPERVISOR From a different site than #1. Collection->Peripheral [...] performance characteristics have been verified by the [facility] Microbiology Laboratory. For questions about this culture, contact the Microbiology Laboratory at [phone]. Interpretive data was last revised on 24. [...] ORDChely LARSEN Final Result Performing Organization Address City/[facility]/ZIP Co de Phone Number AMIE RENAE (ALLI) 1 [facility] Department [place] [address] * Blood culture Blood (04/30/2024 8:47 PM INSTANT POTATO PROCESSING SUPERVISOR) Report Final Report: No growth Comment:Testing performed by : [facility], [address] [place]., [address] Blood 04/30/2024 8:47 PM INSTANT POTATO PROCESSING SUPERVISOR 05/01/2024 Narrative AMIE RENAE ([place]) - 05/05/2024 7:00 AM INSTANT POTATO PROCESSING SUPERVISOR Collection->Peripheral 1. Blood cultures are incubated for [...] performance characteristics have been verified by the [facility] Microbiology Laboratory. For questions about this culture, contact the Microbiology Laboratory at [phone]. Interpretive data was last revised on 24. Guille Wall MD LAB MICROBIOLOGY - GENERAL LINDEN LARSEN Final Result AMIE RENAE ([place]I) 1 [facility] Department [place] [address] * MRI Lumbar Spine WO Contrast (04/30/2024 2:26 PM INSTANT POTATO PROCESSING SUPERVISOR) Anatomical Region Laterality Modality Spine N/A Magnetic Resonan ce 04/30/2024 4:06 PM INSTANT POTATO PROCESSING SUPERVISOR Narrative 04/30/2024 4:12 PM INSTANT POTATO PROCESSING SUPERVISOR EXAM DESCRIPTION: MRI LUMBAR SPINE WO CONTRAST [...] Bo Travis M.D. DORIS: DORIS Report ID: [id number] Reading Location: [place] [address] Procedure Note Bo Travis MD - 04/30/2024 [...] Relevant portions of CT abdomen pelvis with uhqgdald19/19/2025. FINDINGS: SEGMENTATION: No lumbosacral transitional anatomy. The [...] Bo Travis M.D. DORIS: DORIS Report ID: [id number] Reading Location: [id number] Zee Khan MD IMG MRI PROCEDURES Final Result * CT Abdomen Pelvis W Contrast (04/29/2024 9:22 AM INSTANT POTATO PROCESSING SUPERVISOR) Anatomical Region Laterality Modality Body N/A Computed Tomogra phy 04/29/2024 12:5 1 PM INSTANT POTATO PROCESSING SUPERVISOR Narrative 04/29/2024 12:58 PM INSTANT POTATO PROCESSING SUPERVISOR EXAM DESCRIPTION: CT ABDOMEN PELVIS W CONTRAST [...] Alphonso Chaudhry M.D. DORIS: DORIS Report ID: [id number] Reading Location: [id number] Procedure Note Dave Chaudhry MD - 04/29/2024 [...] Alphonso Chaudhry M.D. DORIS: DORIS Report ID: [id number] Reading Location: [id number] us Zee Khan MD IMG CT PROCEDURES Final Result * eGFR (04/29/2024 4:53 AM INSTANT POTATO PROCESSING SUPERVISOR) eGFR >90 >=60 mL/min/1. 73 m2 Comment: [...] last reviewed 2021. Blood 04/29/2024 4:53 AM INSTANT POTATO PROCESSING SUPERVISOR 04/29/2024 5:18 AM INSTANT POTATO PROCESSING SUPERVISOR Zee Khan MD LAB BLOOD ORDERABLES Fin al Result AMIE RENAE ([place]I) 1 [facility] Department [place] [address] * Differential, auto (04/29/2024 4:53 AM INSTANT POTATO PROCESSING SUPERVISOR) Neutrophil abs 2.2 1.5 - 6.5 K/cumm [...] revised on 2017. Blood 04/29/2024 4:53 AM INSTANT POTATO PROCESSING SUPERVISOR 04/29/2024 5:17 AM INSTANT POTATO PROCESSING SUPERVISOR Zee Khan MD LAB BLOOD ORDERABLES Fin al Result [facility] ([place]) 1 [facility] Department [place] [address] * (ABNORMAL) CBC with auto differential (04/29/2024 4:53 AM INSTANT POTATO PROCESSING SUPERVISOR) WBC 4.4 3.8 - 9.9 K/cumm Hgb [...] [facility] ([place]) Blood 04/29/2024 4:53 AM INSTANT POTATO PROCESSING SUPERVISOR 04/29/2024 5:17 AM INSTANT POTATO PROCESSING SUPERVISOR us Zee Khan MD LAB BLOOD ORDERABLES Fin al Result AMIE [facility] ([place]) 1 [facility] [place] [address] * (ABNORMAL) Phosphorus (04/29/2024 4:53 AM INSTANT POTATO PROCESSING SUPERVISOR) Phosphorus, pl 4.6(H) 2.3 - 4.5 mg/dL Blood 04/29/2024 4:53 AM INSTANT POTATO PROCESSING SUPERVISOR 04/29/2024 5:18 AM INSTANT POTATO PROCESSING SUPERVISOR Zee Khan MD LAB BLOOD ORDERABLES Fin al Result [facility] ([place]) 1 [place] [address] * Magnesium (04/29/2024 4:53 AM INSTANT POTATO PROCESSING SUPERVISOR) Magnesium 1.6 1.4 - 2.5 mg/dL Blood 04/29/2024 4:53 AM INSTANT POTATO PROCESSING SUPERVISOR 04/29/2024 5:18 AM INSTANT POTATO PROCESSING SUPERVISOR Zee Khan MD LAB BLOOD ORDERABLES Fin al Result Performing Organization Address City/[facility]/ZIP Co de Phone Number [facility]IE [facility] ([place]) 1 [place] [address] * Hepatic function panel (04/29/2024 4:53 AM INSTANT POTATO PROCESSING SUPERVISOR) Bilirubin, total 0.3 0.1 - 1.2 mg/dL [...] [facility] ([place]) Blood 04/29/2024 4:53 AM INSTANT POTATO PROCESSING SUPERVISOR 04/29/2024 5:18 AM INSTANT POTATO PROCESSING SUPERVISOR Zee Khan MD LAB BLOOD ORDERABLES Fin al Result AMIE RENAE ([place]I) 1 [facility] [employer] [place] [address] * Basic metabolic panel (04/29/2024 4:53 AM INSTANT POTATO PROCESSING SUPERVISOR) Sodium 139 135 - 145 mmol/L Potassium, [...] [facility] ([place]) Blood 04/29/2024 4:53 AM INSTANT POTATO PROCESSING SUPERVISOR 04/29/2024 5:18 AM INSTANT POTATO PROCESSING SUPERVISOR Zee Khan MD LAB BLOOD ORDERABLES Fin al Result AMIE RENAE (ALLI) 1 [facility] [place] [address] * Lipase (04/28/2024 1:16 PM INSTANT POTATO PROCESSING SUPERVISOR) Lipase 90 10 - 99 Units/L Blood 04/28/2024 1:16 PM INSTANT POTATO PROCESSING SUPERVISOR 04/28/2024 1:47 PM INSTANT POTATO PROCESSING SUPERVISOR Zee Khan MD LAB BLOOD ORDERABLES Fin al Result [facility] ([place]) [address] [place] [address] [employer] [place] [address] * Hepatic function panel (04/28/2024 1:16 PM INSTANT POTATO PROCESSING SUPERVISOR) [facility] Bilirubin, total 0.3 0.1 - [...] Moderately Hemolyzed Specimen Blood 04/28/2024 1:16 PM INSTANT POTATO PROCESSING SUPERVISOR 04/28/2024 2:18 PM INSTANT POTATO PROCESSING SUPERVISOR Zee Khan MD LAB BLOOD ORDERABLES Fin al Result AMIE RENAE ([place]) [address] [place] [address] [employer] [place] [address] * eGFR (04/26/2024 8:41 AM INSTANT POTATO PROCESSING SUPERVISOR) eGFR >90 >=60 mL/min/1. 73 m2 Comment: [...] last reviewed 2021. Blood 04/26/2024 8:41 AM INSTANT POTATO PROCESSING SUPERVISOR 04/26/2024 8:57 AM INSTANT POTATO PROCESSING SUPERVISOR Maddie White MD LAB BLOOD ORDERABLES Maeve l Result [facility] ([place]) 1 [facility] Department [place] [address] * (ABNORMAL) CBC without differential (04/26/2024 8:41 AM INSTANT POTATO PROCESSING SUPERVISOR) WBC 6.4 3.8 - 9.9 K/cumm Hgb [...] [facility] ([place]) Blood 04/26/2024 8:41 AM INSTANT POTATO PROCESSING SUPERVISOR 04/26/2024 8:57 AM INSTANT POTATO PROCESSING SUPERVISOR Maddie White MD LAB BLOOD ORDERABLES Maeve lopez Result [facility]IE [facility] ([place]) 1 [facility] Department [place] [address] * Comprehensive metabolic panel (04/26/2024 8:41 AM INSTANT POTATO PROCESSING SUPERVISOR) Sodium 138 135 - 145 mmol/L Potassium, pl 3.3 3.3 - 4.9 mmol/L [facility] ([place]) Chloride 103 97 - 110 mmol/L [facility] ([place]) CO2 22 22 - 32 mmol/L [facility] ([place]) Anion gap 13 2 - 15 mmol/L [facility] ([place]) BUN 21 6 - 25 mg/dL [facility] ([place]) Creatinine 0.61 0.60 - 1.10 [...] [facility] ([place]) Blood 04/26/2024 8:41 AM INSTANT POTATO PROCESSING SUPERVISOR 04/26/2024 8:57 AM INSTANT POTATO PROCESSING SUPERVISOR us Maddie White MD LAB BLOOD ORDERABLES Maeve l Result AMIE RENAE ([place]) 1 [facility] [employer] [place] [address] * eGFR (04/25/2024 8:53 AM INSTANT POTATO PROCESSING SUPERVISOR) eGFR >90 >=60 mL/min/1. 73 m2 Comment: [...] last reviewed 2021. Blood 04/25/2024 8:53 AM INSTANT POTATO PROCESSING SUPERVISOR 04/25/2024 8:55 AM INSTANT POTATO PROCESSING SUPERVISOR us Chang Mckeon MD LAB BLOOD ORDERABLE S Final Result AMIE RENAE ([place]) 1 [facility] Department [place] [address] * (ABNORMAL) Differential, auto (04/25/2024 8:53 AM INSTANT POTATO PROCESSING SUPERVISOR) Neutrophil abs 6.3 1.5 - 6.5 K/cumm [...] Neutrophil pct 85.4 % [facility] ([place]) Comment: Interpretive Data Percent cell count reference ranges are not reported, since discordance with absolute values may lead to misinterpretation of CBC data. Current Interpretive Data was last revised on 2017. Imm gran pct 0.4 % [facility] ([place]) Comment: Interpretive Data Percent cell count reference [...] revised on 2017. Blood 04/25/2024 8:53 AM INSTANT POTATO PROCESSING SUPERVISOR 04/25/2024 8:55 AM INSTANT POTATO PROCESSING SUPERVISOR us Chang Mckeon MD LAB BLOOD ORDERABLE S Final Result [facility]IE [facility] ([place]) 1 [facility] [employer] [place] [address] * (ABNORMAL) CBC with auto differential (04/25/2024 8:53 AM INSTANT POTATO PROCESSING SUPERVISOR) WBC 7.4 3.8 - 9.9 K/cumm Hgb [...] [facility] ([place]) Blood 04/25/2024 8:53 AM INSTANT POTATO PROCESSING SUPERVISOR 04/25/2024 8:55 AM INSTANT POTATO PROCESSING SUPERVISOR us Chang Mckeon MD LAB BLOOD ORDERABLE S Final Result [facility]IE [facility] ([place]) 1 [facility] [employer] [place] [address] * aPTT (04/25/2024 8:53 AM INSTANT POTATO PROCESSING SUPERVISOR) aPTT 29 28 - 38 sec AMIE [facility] ([place]) Comment: Interpretive Data Heparin therapeutic range: 66.0 - 100.0 seconds. Range based on correlation with therapeutic heparin activity range of 0.3 - 0.7 Units/mL. Current interpretive data was last revised on 2023. Blood 04/25/2024 8:53 AM INSTANT POTATO PROCESSING SUPERVISOR 04/25/2024 5:58 PM INSTANT POTATO PROCESSING SUPERVISOR Maddie White MD LAB BLOOD ORDERABLES Maeve l Result AMIE [facility] ([place]) [address] [place] [address] [employer] [place] [address] * Protime-INR (04/25/2024 8:53 AM INSTANT POTATO PROCESSING SUPERVISOR) PT 11.5 9.7 - 13.0 sec AMIE [facility] ([place]) INR 1.06 0.90 - 1.20 AMIE [facility] ([place]) Comment: Interpretive data Oral anticoagulant therapeutic ranges: Venous thromboembolism prophylaxis or treatment: 2.0-3.0 CARDIOLOGY Standard range: 2.0-3.0 High-intensity range: 2.5-3.5 Refer to indication-specific guidelines for appropriate target ranges for prosthetic heart valve replacement. Current interpretive data was last revised on 2019. Blood 04/25/2024 8:53 AM INSTANT POTATO PROCESSING SUPERVISOR 04/25/2024 5:58 PM INSTANT POTATO PROCESSING SUPERVISOR Maddie White MD LAB BLOOD ORDERABLES Maeve l Result [facility] ([place]) 1 [facility] [employer] [place] [address] * Magnesium (04/25/2024 8:53 AM INSTANT POTATO PROCESSING SUPERVISOR) Magnesium 1.4 1.4 - 2.5 mg/dL Blood 04/25/2024 8:53 AM INSTANT POTATO PROCESSING SUPERVISOR 04/25/2024 9:56 AM INSTANT POTATO PROCESSING SUPERVISOR Chang Mckeon MD LAB BLOOD ORDERABLE S Final Result Performing Organization Address [facility] de Phone Number AMIE RENAE ([place]I) 1 [facility] [place] [address] * (ABNORMAL) Ethanol (04/25/2024 8:53 AM INSTANT POTATO PROCESSING SUPERVISOR) Ethanol 59(H) <=10 mg/dL Comment: Interpretive Data Legal limit of intoxication > or = 80 mg/dL Levels > or = 400 mg/dL are potentially TOXIC. Current interpretive data was last revised on 2018. Blood 04/25/2024 8:53 AM INSTANT POTATO PROCESSING SUPERVISOR 04/25/2024 8:55 AM INSTANT POTATO PROCESSING SUPERVISOR Chang Mckeon MD LAB BLOOD ORDERABLE S Final Result Performing Organization Address [facility] de Phone Number AMIE RENAE (ALLI) 1 [facility] [place] [address] * (ABNORMAL) Comprehensive metabolic panel (04/25/2024 8:53 AM INSTANT POTATO PROCESSING SUPERVISOR) Sodium 134(L) 135 - 145 mmol/L Potassium, pl 3.5 3.3 - 4.9 mmol/L [facility] ([place]I) Chloride 99 97 - 110 mmol/L [facility] ([place]) CO2 21(L) 22 - 32 mmol/L [facility] ([place]) Anion gap 14 2 - 15 mmol/L [facility] ([place]) BUN 13 6 - 25 mg/dL [facility] ([place]) Creatinine 0.48(L) 0.60 - 1.10 mg/dL [facility] ([place]) Glucose 141 70 - 199 mg/dL [facility] ([place]) Comment: Interpretive Data Fasting [...] Hemolyzed S pecimen Blood 04/25/2024 8:53 AM INSTANT POTATO PROCESSING SUPERVISOR 04/25/2024 8:55 AM INSTANT POTATO PROCESSING SUPERVISOR us Chang Mckeon MD LAB BLOOD ORDERABLE S Final Result [facility]IE [facility] ([place]) 1 [facility] Department [place] [address] * eGFR (04/25/2024 8:33 AM INSTANT POTATO PROCESSING SUPERVISOR) eGFR >90 >=60 mL/min/1. 73 m2 Comment: [...] last reviewed 2021. Blood 04/25/2024 8:33 AM INSTANT POTATO PROCESSING SUPERVISOR 04/25/2024 8:41 AM INSTANT POTATO PROCESSING SUPERVISOR Jesenia Mckeon MD LAB BLOOD ORDERABLES Final Re sult [facility] ([place]) 1 [facility] Department [place] [address] * (ABNORMAL) Drugs of Abuse Screen, Urine without Confirmation (04/25/2024 8:33 AM INSTANT POTATO PROCESSING SUPERVISOR) Amphetamine, ur Screen Positive, presumptive (A) CutOff [...] revised on 2017. Urine 04/25/2024 8:33 AM INSTANT POTATO PROCESSING SUPERVISOR 04/25/2024 8:43 AM INSTANT POTATO PROCESSING SUPERVISOR Narrative [facility] ([place]) - 04/25/2024 9:03 AM INSTANT POTATO PROCESSING SUPERVISOR Drug of Abuse screening is performed by immunoassay for medical purposes only. This is not to be used for Pain Management purposes. us Jesenia Mckeon MD LAB URINE ORDERABLES Final Re sult [facility] ([place]) 1 [facility] Department [place] [address] * (ABNORMAL) CBC without differential (04/25/2024 8:33 AM INSTANT POTATO PROCESSING SUPERVISOR) WBC 7.3 3.8 - 9.9 K/cumm Hgb [...] [facility] ([place]) Blood 04/25/2024 8:33 AM INSTANT POTATO PROCESSING SUPERVISOR 04/25/2024 8:41 AM INSTANT POTATO PROCESSING SUPERVISOR us Jesenia Mckeon MD LAB BLOOD ORDERABLES Final Re sult [facility] ([place]) 1 [facility] Department [place] [address] * (ABNORMAL) Comprehensive metabolic panel (04/25/2024 8:33 AM INSTANT POTATO PROCESSING SUPERVISOR) Sodium 135 135 - 145 mmol/L Potassium, [...] Hemolyzed S pecimen Blood 04/25/2024 8:33 AM INSTANT POTATO PROCESSING SUPERVISOR 04/25/2024 8:41 AM INSTANT POTATO PROCESSING SUPERVISOR us Jesenia Mckeon MD LAB BLOOD ORDERABLES Final Re sult [facility] ([place]) 1 [facility] [place] [address] from Last 3 Months Insurance [employer] BETTER [facility] [place] Advance Directives For more information, please contact: [phone] * Full Code (Latest Code Status on File) Date Activated Date Inactivated Comments 06/09/2024 2:35 PM 06/12/2024 5:25 PM * Full Code Date Activated Date Inactivated Comments 04/25/2024 5:41 PM 05/07/2024 7:44 PM Care Teams Broadcaster Relationship Specialty Start Date End Date Bladimir Crowder MD [address] [place] [id number] PCP - General Family Medicine 04/25/24
--- NOTE | 2024-07-15 22:58 | PC.NURSE ---
ERP states that he spoke with pt again and that pt has decided to have us call the police so that they can come and fill our a report. [place] [employer] called at [id number].
--- NOTE | 2024-07-15 23:06 | PC.NURSE ---
[place] [employer], Officer Prabhakar, arrived at 2304 hrs. to talk to patient.
[2024-07-15 23:19] VITALS: BP 150/90; PULSE 72; RESP 16; TEMP 36.5; O2SAT 98
--- NOTE | 2024-07-15 23:20 | PC.NURSE ---
Pt spoke with police and states that she is ready to be discharged.
== END 2024-07-15 23:25 | disposition home or self-care (01) ==
PROVIDERS: Emergency Provider Emergency Medicine; PCP Family Medicine
DX: S80.00XA Contusion of unspecified knee, initial encounter (principal); I10 Essential (primary) hypertension; Y04.2XXA Assault by strike against or bumped into by another person, initial encounter
CPT/HCPCS: 73564; 99284

== ENCOUNTER 2024-08-13 08:14 | Emergency (ER) | payer OTHER, SELFPAY ==
--- NOTE | ~2024-08-13 | CT_ITS ---
EXAMINATION: CT abdomen pelvis w con DATE: 08/13/2024 09:47 INDICATION: Upper abdominal pain, nausea and vomiting. TECHNIQUE: Computed tomography (CT) of the abdomen and pelvis was performed with 100 mL Omnipaque-350 intravenous contrast. Automated exposure control and iterative reconstruction technique were employe d. The dose-length product was 427.25 mGy-cm. COMPARISON: 05/25/2024 FINDINGS: Mild bibasilar atelectasis. Heart size is normal. No pericardial or pleural effusion. Nodular cirrhot ic liver along with diffuse hepatic steatosis. Recanalized umbilical vein consistent with portal veno us hypertension. Multiple gallstones within the normal-appearing gallbladder. No intra or extrahepati c biliary ductal dilation. Spleen, pancreas, bilateral adrenal glands and left kidney are normal. 9 m m low-attenuation right renal cyst. There are also small region of cortical scarring at the right kid ian likely sequela prior infection or infarction. Bowels including the appendix are normal. Bladder i s normal. The uterus is not identified and has likely been surgically resected. No free intraperitone al gas or fluid. Mild lumbar and moderate to severe lower thoracic spondylosis. IMPRESSION: 1. Cirrhosis with portal venous hypertension. 2. Cholelithiasis. Reviewed, dictated and finalized at location A.
[2024-08-13 08:17] VITALS: BP 164/113; PULSE 82; RESP 18; TEMP 36.6; O2SAT 100
--- OUTSIDE RECORDS SUMMARY | 2024-08-13 08:21 | XMS_ITS ---
Author Organization Replaced by [facility] Address [address] [place] [address] Care Team Providers Care Rn Lvn Name Role Phone Holli Keith Primary Care Provider [phone] Ana Zafar Unavailable [phone] REASON FOR VISIT discharged from [facility] Social History Sex Assigned At : Social History Observation Description Sex Assigned At Female Encounters Encounter Location Date Provider Diagnosis [facility] [address] [address] 06/14/2024 Ana Zafar Plan Of Treatment No Information Progress Notes * ERMA LatriceDOB:1975 ([age] yo F)Acc No.[id number]:06/14/2024 UNLOCKED PROGRESS NOTE Patient: Latrice DOWLING Provider: SANIA Sommers :1975 A ge:49 Y S ex:Female Date:06/14/2024 Phone: Address:[address] [place], [place] [id number] Pcp:Holli Keith Subjective: * Chief Complaints: * 1 . discharged from [facility]. * Medical History: Objective: * Vitals: Assessment: Plan: * Treatment: * * Electronic signature of Nohelia Zafar on 08/13/2024 at 08:21 AM CDT Sign off status: Pending * Provider: SANIA Sommers Date: 06/14/2024 Generated for Printi ng/Faxing/eTransmitting on: 08/13/2024 08:21 AM CDT
--- OUTSIDE RECORDS SUMMARY | 2024-08-13 08:22 | XMS_ITS | Referral Summary ---
Author Organization [facility] Address 1 [place] [address] Care Team Providers Care V Block Saw Operator Name Role Phone Bladimir Crowder MD Primary Care Provider [phone] Encounters Date Type Department Care Team Description 08/11/2024 [facility] Outreach [facility] [address] [place], [place] [phone] Sanaz Thomason 08/11/2024 [facility] Initial Eligibility [facility] [address] [place], [place] [phone] Sanaz Thomason 06/12/2024 Documentation [facility] [address] [place], [place] [phone] Bruno Jefferson 06/09/2024 11:27 AM RECEIVING SPECIALIST - 06/12/2024 1:20 PM RECEIVING SPECIALIST Hospital Encounter [facility] 1 [place] [address] Jesenia Mckeon MD [place]on[place]wo, Kasiemobi Bernice, MD Richards, John Albert Jr., MD Alcohol withdrawal syndrome without complication (HCC) (Primary Dx); Chronic pancreatitis, unspecified pancreatitis type (HCC) [K86.1] Discharge Disposition: Discharge to not critical access hospital facility 06/11/2024 Documentation [facility] [address] [place], [place] [phone] Latrice Dumont 06/10/2024 Documentation [facility] [address] [place], [place] [phone] Latrice Dumont 06/09/2024 [facility] Enrollment [facility] [address] [place], [place] [phone] Dumont Latrice Aden 06/09/2024 8:20 AM RECEIVING SPECIALIST Lab [facility] 1 [place] [address] 05/28/2024 [facility] Initial Eligibility [facility] [address] [place], [place] [phone] Bo Rojas 05/17/2024 [facility] Outreach [facility] [address] [place], [place] [phone] Jana Hilario from Last 3 Months Allergies No known [...] 06/09/2024 Assessment & Plan (06/09/2024 3:43 PM RECEIVING SPECIALIST): Chronic hx. Managed w/ Creon TID. Pt has non-specific abdominal pain in the setting of alcohol withdrawal. Amylase and lipase are normal. Acute pancreatitis is unlikely. Plan: - Continue Creon - Monitor IV fluids - If abdominal pain persists or worsens, consider CT abdomen Cirrhosis 06/09/2024 Assessment & Plan (06/09/2024 3:33 PM RECEIVING SPECIALIST): Chronic hx. LFTs are normal. PT, PTT, and INR are normal. Currently stable Plan: - Monitor for symptoms Unspecified mood disorder 05/02/2024 Alcohol withdrawal syndrome without complication 04/25/2024 Assessment & Plan (06/09/2024 3:42 PM RECEIVING SPECIALIST): 49 y/o female w/ alcohol use disorder, [...] Comments Blood Pressure 128/74 06/12/2024 11:09 AM RECEIVING SPECIALIST Pulse 67 06/12/2024 11:09 AM RECEIVING SPECIALIST Temperature 36.4 C (97.5 F) 06/12/2024 11:09 AM RECEIVING SPECIALIST Respiratory Rate 15 06/12/2024 11:09 AM RECEIVING SPECIALIST Oxygen Saturation 97% 06/12/2024 11:09 AM RECEIVING SPECIALIST Inhaled Oxygen Concentration - - Weight 69.4 kg (153 lb) 06/09/2024 11:47 AM RECEIVING SPECIALIST Height 165.1 cm (5' 5 ) 06/09/2024 11:47 AM RECEIVING SPECIALIST Body Mass Index 25.46 06/09/2024 11:47 AM RECEIVING SPECIALIST Plan of Treatment Upcoming Encounters Date Type Department Care Team (Late st Contact Info) Description 08/15/2024 11:30 AM CDT Hospital Encounter [facility] [address] [place] [phone] Procedures Procedure Name Priority Date/Time Associated Diagnosis Comments EGFR Routine 06/12/2024 5:10 AM RECEIVING SPECIALIST DIFFERENTIAL AUTO Routine 06/12/2024 5:1 0 AM RECEIVING SPECIALIST CBC WITH AUTO DIFFERENTIAL Routine 06/12/2024 5:10 AM RECEIVING SPECIALIST BASIC METABOLIC PANEL Routine 06/12/2024 5:10 AM RECEIVING SPECIALIST CLINICAL PATHOLOGY REPORT Routine 06/11/2024 2:[address] ABDOMEN PELVIS W CONTRAST ED 06/11/2024 1:27 PM RECEIVING SPECIALIST ANTI-DOUBLE STRANDED DNA ANTIBODIES Routine 06/11/2024 11:59 AM RECEIVING SPECIALIST TONY QUALITATIVE WITH REFLEX TO TONY QUANTITATIVE Routine 06/11/2024 11:59 AM RECEIVING SPECIALIST FOLATE Routine 06/11/2024 11:59 AM RECEIVING SPECIALIST VITAMIN B12 Routine 06/11/2024 11:59 AM RECEIVING SPECIALIST HIV 1/2 ANTIBODY PLUS P24 ANTIGEN Routine 06/11/2024 11:59 AM RECEIVING SPECIALIST HEPATITIS PANEL, ACUTE Routine 11:59 AM RECEIVING SPECIALIST SLIDE REVIEW - PATHOLOGIST Routine 06/11/2024 5:34 AM RECEIVING SPECIALIST EGFR Routine 06/11/2024 5:34 AM RECEIVING SPECIALIST DIFFERENTIAL AUTO Routine 06/11/2024 5:3 4 AM RECEIVING SPECIALIST CBC WITH AUTO DIFFERENTIAL Routine 06/11/2024 5:34 AM RECEIVING SPECIALIST BASIC METABOLIC PANEL Routine 06/11/2024 5:34 AM RECEIVING SPECIALIST POCT GLUCOSE DEVICE Routine 06/11/2024 3 :01 AM RECEIVING SPECIALIST EGFR STAT 06/10/2024 7:50 AM RECEIVING SPECIALIST DIFFERENTIAL AUTO STAT 06/10/2024 7:5 0 AM RECEIVING SPECIALIST BASIC METABOLIC PANEL STAT 06/10/2024 7:50 AM RECEIVING SPECIALIST CBC WITH AUTO DIFFERENTIAL STAT 06/10/2024 7:50 AM RECEIVING SPECIALIST ETHANOL STAT 06/09/2024 2:55 PM RECEIVING SPECIALIST APTT STAT 06/09/2024 2:55 PM RECEIVING SPECIALIST PROTIME-INR STAT 06/09/2024 2:55 PM RECEIVING SPECIALIST LIPASE STAT 06/09/2024 2:55 PM RECEIVING SPECIALIST AMYLASE STAT 06/09/2024 2:55 PM RECEIVING SPECIALIST EGFR STAT 06/09/2024 8:33 AM RECEIVING SPECIALIST DRUGS OF ABUSE SCREEN, URINE WITHOUT CONFIRMATION STAT 06/09/2024 8:33 AM RECEIVING SPECIALIST CBC WITHOUT DIFFERENTIAL STAT 06/09/2024 8:33 AM RECEIVING SPECIALIST COMPREHENSIVE METABOLIC PANEL STAT 06/09/2024 8:33 AM RECEIVING SPECIALIST from Last 3 Months Results * eGFR (06/12/2024 5:10 AM RECEIVING SPECIALIST) eGFR >90 >=60 mL/min/1. 73 m2 Comment: [...] last reviewed 2021. Blood 06/12/2024 5:10 AM RECEIVING SPECIALIST 06/12/2024 5:38 AM RECEIVING SPECIALIST us Dana Maradiaga MD LAB BLOOD ORDERABLE S Final Result AMIE [facility] ([place]) 1 [facility] Department [place] [address] * (ABNORMAL) Differential, auto (06/12/2024 5:10 AM RECEIVING SPECIALIST) Neutrophil abs 1.4(L) 1.5 - 6.5 K/cumm Imm gran abs 0.0 0.0 - 0.1 K/cumm [facility] ([place]) Lymphocyte abs 1.0 0.8 - 3.3 K/cumm [facility] ([place]) Monocyte abs 0.3 0.2 - 0.8 K/cumm [facility] ([place]) Eosinophil abs 0.1 0.0 - 0.5 K/cumm [...] revised on 2017. Blood 06/12/2024 5:10 AM RECEIVING SPECIALIST 06/12/2024 5:38 AM RECEIVING SPECIALIST Dana Maradiaga MD LAB BLOOD ORDERABLE S Final Result [facility] ([place]) 1 [facility] [place] [address] * (ABNORMAL) CBC with auto differential (06/12/2024 5:10 AM RECEIVING SPECIALIST) WBC 2.8(L) 3.8 - 9.9 K/cumm Hgb [...] [facility] ([place]) Blood 06/12/2024 5:10 AM RECEIVING SPECIALIST 06/12/2024 5:38 AM RECEIVING SPECIALIST us Dana Maradiaga MD LAB BLOOD ORDERABLE S Final Result [facility] ([place]) 1 [facility] [place] [address] * (ABNORMAL) Basic metabolic panel (06/12/2024 5:10 AM RECEIVING SPECIALIST) Pathologist [facility] Sodium 141 135 - 145 mmol/L Potassium, pl 3.7 3.3 - 4.9 mmol/L [facility] ([place]) Chloride 107 97 - 110 mmol/L [facility] ([place]) CO2 21(L) 22 - 32 mmol/L [facility] ([place]) Anion gap 13 2 - 15 mmol/L [facility] ([place]) BUN 15 6 - 25 mg/dL [facility] ([place]) Creatinine 0.61 0.60 - 1.10 mg/dL [facility] ([place]) Glucose 109 70 - 199 mg/dL [facility] [...] Calcium 9.0 8.5 - 10.3 mg/dL [facility] ([place]) Blood 06/12/2024 5:10 AM RECEIVING SPECIALIST 06/12/2024 5:38 AM RECEIVING SPECIALIST Dana Maradiaga MD LAB BLOOD ORDERABLE S Final Result [facility] ([place]) [address] [place] [address] Department [place] [address] * Clinical pathology report (06/11/2024 2:24 PM RECEIVING SPECIALIST) Miscellaneous 06/11/2024 2:2 4 PM RECEIVING SPECIALIST 06/11/2024 2:24 PM RECEIVING SPECIALIST Narrative 06/12/2024 8:53 AM RECEIVING SPECIALIST EPIC results best viewed via link to PDF [facility] Department of Pathology [address] [place] [id number] Final Report Note to Patients: This report [...] and explain the details. Patient Name: LATRICE RITCHIE Address: [address] [id number] Gender: F : 1975 (Age: 49) Service: Medical Location: [facility] Hospital #: [id number] Patient Type: [facility] Taken: 06/11/2024 Received: 06/11/2024 Accessioned: 06/11/2024 Physician(s): [...] determined by the Surgical Pathology Department at [facility] as part of an ongoing assistant manager quality management program and in compliance with federally mandated [...] characteristics determined by the Surgical Pathology Department [facility]. It has not been cleared or approved by the U. S. Food and Drug Administration. REPORT IMAGES AND SCANNED DOCUMENTS, IF INCLUDED, ONLY VIEWABLE IN PDF VERSION OF REPORTe o [facility] Korina Maradiaga MD LAB PATHOLOGY ORDER LOPEZ Final Result * CT Abdomen Pelvis W Contrast (06/11/2024 1:27 PM RECEIVING SPECIALIST) Anatomical Region Laterality Modality Body N/A Computed Tomogra phy 06/11/2024 1:34 PM RECEIVING SPECIALIST Narrative 06/11/2024 1:47 PM RECEIVING SPECIALIST EXAM DESCRIPTION: CT ABDOMEN PELVIS W CONTRAST [...] Galaviz M.D. AG: MARIA LUISA Report ID: [id number] Reading Location: [id number] Procedure Note Eber Galaviz MD - 06/11/2024 [...] Eber Galaviz M.D. AG: AG Report ID: [id number] Reading Location: [place] [address] [facility] Korina Maradiaga MD IM CT PROCEDURES F inal Result * (ABNORMAL) TONY ab ql w/rflx to TONY qn (06/11/2024 11:59 AM RECEIVING SPECIALIST) TONY Positive 1:320 Comment: Interpretive Data Normal [...] last revised on 2019. Testing performed by: [facility], [address] [facility] [place]., [address] TONY, quant 1:320 titer AMIE Pereira ([place]) Comment:Testing performed by : [facility], [address] [place]., [address] TONY, interp Speckled(A) [facility] ([place]) Comment:Testing performed by : [facility], [address] [place]., [address] Blood 06/11/2024 11:5 9 AM RECEIVING SPECIALIST 06/11/2024 2:52 PM RECEIVING SPECIALIST Dana Maradiaga MD LAB BLOOD ORDERABLE S Final Result Performing Organization Address [facility] Co de Phone Number [facility] ([place]) 1 [facility] [place] [address] * Anti-double stranded DNA abs (06/11/2024 11:59 AM RECEIVING SPECIALIST) dsDNA Ab <1.0 <=4.0 IUnits/mL Comment: Interpretive Data Negative: < or = 4 IUnits/mL Indeterminate: 5 - 9 IUnits/mL Positive: > or = 10 IUnits/mL Current interpretive data was last revised on 2016. Testing performed by: [facility], [address] [place]., [address] Blood 06/11/2024 11:5 9 AM RECEIVING SPECIALIST 06/11/2024 2:52 PM RECEIVING SPECIALIST Dana Maradiaga MD LAB BLOOD ORDERABLE S Final Result AMIE [facility] ([place]) 1 [facility] [place] [address] * HIV 1/2 Antibody plus p24 Antigen Blood (06/11/2024 11:59 AM RECEIVING SPECIALIST) Pathologist [facility] HIV 1/2 ab + p24 ag Nonreactive Nonreactive Comment: Nonreactive for HIV-1 antigen and HIV-1/HIV-2 antibodies. No laboratory evidence of HIV infection. If acute HIV infection is suspected, consider testing for HIV-1 RNA. Testing performed by: [address] [address] Blood 06/11/2024 11:5 9 AM RECEIVING SPECIALIST 06/11/2024 1:56 PM RECEIVING SPECIALIST Dana Maradiaga MD LAB MICROBIOLOGY - GENERAL ORDERABLES Final Result [facility] ([place]) 1 [facility] Department [place] [address] * Hepatitis panel, acute Blood (06/11/2024 11:59 AM RECEIVING SPECIALIST) Hep A IgM Nonreactive Nonreactive Comment: Interpretive Data: If Hep A IgM Ab is reported as Equivocal, a new sample should be drawn in two weeks for testing. Current interpretive data was last revised on 19. Testing performed by: [address] [address] Hep B core IgM Nonreactive Nonreactive Selin RE[facility] ([place]) Comment: Interpretive Data If HepB Core IgM Ab is reported as Equivocal, a new sample should be drawn in two weeks for testing. Current interpretive data was last revised on 19. Testing performed by: [address] [address] Hep C Ab Nonreactive Nonreactive AMIE RE[facility]E [...] last revised on 2019. Testing performed by: [address] [address] HepBsAg Nonreactive Nonreactive [facility] ([place]) Comment:Testing performed by : [address] [address] Blood 06/11/2024 11:5 9 AM RECEIVING SPECIALIST 06/11/2024 1:56 PM RECEIVING SPECIALIST Dana Maradiaga MD LAB MICROBIOLOGY - GENERAL ORDERABLES Final Result Performing Organization Address [facility] Co de Phone Number [facility] ([place]) 1 [facility] [place] [address] * Folate (06/11/2024 11:59 AM RECEIVING SPECIALIST) Folic acid >20.0 >=5.0 ng/mL Comment:Slightly Hemolyzed S pecimen. Results may be affected. Blood 06/11/2024 11:5 9 AM RECEIVING SPECIALIST 06/11/2024 12:25 PM RECEIVING SPECIALIST Dana Maradiaga MD LAB BLOOD ORDERABLE S Final Result Performing Organization Address [facility] Co de Phone Number [facility] ([place]) 1 [facility] [place] [address] * Vitamin B12 (06/11/2024 11:59 AM RECEIVING SPECIALIST) Vitamin B12 630 230 - 1,250 pg/mL Blood 06/11/2024 11:5 9 AM RECEIVING SPECIALIST 06/11/2024 12:25 PM RECEIVING SPECIALIST Dana Maradiaga MD LAB BLOOD ORDERABLE S Final Result Performing Organization Address [facility] Co de Phone Number [facility] ([place]) 1 [facility] [place] [address] * Slide review - pathologist (06/11/2024 5:34 AM RECEIVING SPECIALIST) Slide review by Dr Vaughn Diop Comment: [facility] # [id number] Interpretive Data See Clinical Pathology Report under Media section in EPIC. Current Interpretive Data was last revised on 2018. Blood 06/11/2024 5:34 AM RECEIVING SPECIALIST 06/11/2024 11:19 AM RECEIVING SPECIALIST Dana Maradiaga MD LAB BLOOD ORDERABLE S Final Result [facility] ([place]) 1 [facility] Department [place] [address] * eGFR (06/11/2024 5:34 AM RECEIVING SPECIALIST) eGFR >90 >=60 mL/min/1. 73 m2 Comment: [...] last reviewed 2021. Blood 06/11/2024 5:34 AM RECEIVING SPECIALIST 06/11/2024 5:59 AM RECEIVING SPECIALIST Dana Maradiaga MD LAB BLOOD ORDERABLE S Final Result [facility] ([place]) 1 [facility] Department [place] [address] * (ABNORMAL) Differential, auto (06/11/2024 5:34 AM RECEIVING SPECIALIST) Neutrophil abs 1.0(L) 1.5 - 6.5 K/cumm Imm gran abs 0.0 0.0 - 0.1 K/cumm [facility] ([place]) Lymphocyte abs 1.1 0.8 - 3.3 K/cumm [facility] ([place]) Monocyte abs 0.4 0.2 - 0.8 K/cumm [facility] ([place]) Eosinophil abs 0.1 0.0 - 0.5 K/cumm [facility] ([place]) Basophil abs 0.0 0.0 - 0.1 K/cumm [...] revised on 2017. Blood 06/11/2024 5:34 AM RECEIVING SPECIALIST 06/11/2024 5:57 AM RECEIVING SPECIALIST Dana Maradiaga MD LAB BLOOD ORDERABLE S Final Result [facility] ([place]) 1 [facility] [place] [address] * (ABNORMAL) CBC with auto differential (06/11/2024 5:34 AM RECEIVING SPECIALIST) [facility] WBC 2.6(L) 3.8 - 9.9 K/cumm Hgb [...] [facility] ([place]) Blood 06/11/2024 5:34 AM RECEIVING SPECIALIST 06/11/2024 5:57 AM RECEIVING SPECIALIST us Dana Maradiaga MD LAB BLOOD ORDERABLE S Final Result [facility] ([place]) 1 [facility] Department [place] [address] * (ABNORMAL) Basic metabolic panel (06/11/2024 5:34 AM RECEIVING SPECIALIST) [facility] Sodium 140 135 - 145 mmol/L Potassium, [...] 2022. Calcium 9.1 8.5 - 10.3 mg/dL [facility] ([place]) Blood 06/11/2024 5:34 AM RECEIVING SPECIALIST 06/11/2024 5:59 AM RECEIVING SPECIALIST Dana Maradiaga MD LAB BLOOD ORDERABLE S Final Result [facility] ([place]) 1 [facility] [place] [address] * POCT glucose (06/11/2024 3:01 AM RECEIVING SPECIALIST) [facility] Glucose, POC 92 70 - 199 mg/dL Blood 06/11/2024 3:01 AM RECEIVING SPECIALIST 06/11/2024 3:01 AM RECEIVING SPECIALIST Dana Maradiaga MD LAB POCT ORDERABLES - DEVICE Final Result AMIE [facility] ([place]) 1 [facility] [place] [address] * eGFR (06/10/2024 7:50 AM RECEIVING SPECIALIST) eGFR >90 >=60 mL/min/1. 73 m2 Comment: [...] last reviewed 2021. Blood 06/10/2024 7:50 AM RECEIVING SPECIALIST 06/10/2024 8:39 AM RECEIVING SPECIALIST us Dana Maradiaga MD LAB BLOOD ORDERABLE S Final Result AMIE [facility] ([place]) 1 [facility] Department [place] [address] * Differential, auto (06/10/2024 7:50 AM RECEIVING SPECIALIST) Neutrophil abs 1.5 1.5 - 6.5 K/cumm [...] revised on 2017. Blood 06/10/2024 7:50 AM RECEIVING SPECIALIST 06/10/2024 8:39 AM RECEIVING SPECIALIST us Dana Maradiaga MD LAB BLOOD ORDERABLE S Final Result [facility] ([place]) 1 [facility] Department [place] [address] * (ABNORMAL) CBC with auto differential (06/10/2024 7:50 AM RECEIVING SPECIALIST) WBC 3.2(L) 3.8 - 9.9 K/cumm Hgb [...] [facility] ([place]) Blood 06/10/2024 7:50 AM RECEIVING SPECIALIST 06/10/2024 8:39 AM RECEIVING SPECIALIST us Dana Maradiaga MD LAB BLOOD ORDERABLE S Final Result [facility] ([place]) 1 [facility] Department [place] [address] * (ABNORMAL) Basic metabolic panel (06/10/2024 7:50 AM RECEIVING SPECIALIST) Sodium 137 135 - 145 mmol/L Potassium, [...] [facility] ([place]) Blood 06/10/2024 7:50 AM RECEIVING SPECIALIST 06/10/2024 8:39 AM RECEIVING SPECIALIST Dana Maradiaga MD LAB BLOOD ORDERABLE S Final Result Performing Organization Address [facility] Co de Phone Number [facility] ([place]) 1 [facility] [place] [address] * aPTT (06/09/2024 2:55 PM RECEIVING SPECIALIST) aPTT 32 28 - 38 sec [facility] ([place]) Comment: Interpretive Data Heparin therapeutic range: 66.0 - 100.0 seconds. Range based on correlation with therapeutic heparin activity range of 0.3 - 0.7 Units/mL. Current interpretive data was last revised on 2023. Blood 06/09/2024 2:55 PM RECEIVING SPECIALIST 06/09/2024 3:01 PM RECEIVING SPECIALIST Dana Maradiaga MD LAB BLOOD ORDERABLE S Final Result Performing Organization Address [facility] Co de Phone Number JHONANAID RE[facility] ([place]) 1 [facility] [place] [address] * Protime-INR (06/09/2024 2:55 PM RECEIVING SPECIALIST) PT 11.4 9.7 - 13.0 sec [facility] ([place]) INR 1.05 0.90 - 1.20 [facility] ([place]) Comment: Interpretive data Oral anticoagulant therapeutic ranges: Venous thromboembolism prophylaxis or treatment: 2.0-3.0 CARDIOLOGY Standard range: 2.0-3.0 High-intensity range: 2.5-3.5 Refer to indication-specific guidelines for appropriate target ranges for prosthetic heart valve replacement. Current interpretive data was last revised on 2019. Blood 06/09/2024 2:55 PM RECEIVING SPECIALIST 06/09/2024 3:01 PM RECEIVING SPECIALIST Dana Maradiaga MD LAB BLOOD ORDERABLE S Final Result [facility] ([place]) 1 [facility] [place] [address] * Lipase (06/09/2024 2:55 PM RECEIVING SPECIALIST) Lipase 92 10 - 99 Units/L Blood 06/09/2024 2:55 PM RECEIVING SPECIALIST 06/09/2024 3:01 PM RECEIVING SPECIALIST Dana Maradiaga MD LAB BLOOD ORDERABLE S Final Result Performing Organization Address [facility] Co de Phone Number [facility] ([place]) 1 [facility] [place] [address] * Amylase (06/09/2024 2:55 PM RECEIVING SPECIALIST) Amylase 58 30 - 99 Units/L Blood 06/09/2024 2:55 PM RECEIVING SPECIALIST 06/09/2024 3:01 PM RECEIVING SPECIALIST Dana Maradiaga MD LAB BLOOD ORDERABLE S Final Result [facility] ([place]) 1 [facility] [place] [address] * Ethanol (06/09/2024 2:55 PM RECEIVING SPECIALIST) Ethanol <10 <=10 mg/dL Comment: Interpretive Data Legal limit of intoxication > or = 80 mg/dL Levels > or = 400 mg/dL are potentially TOXIC. Current interpretive data was last revised on 2018. Blood 06/09/2024 2:55 PM RECEIVING SPECIALIST 06/09/2024 3:01 PM RECEIVING SPECIALIST us Dana Maradiaga MD LAB BLOOD ORDERABLE S Final Result [facility] ([place]) 1 [facility] [place] [address] * eGFR (06/09/2024 8:33 AM RECEIVING SPECIALIST) eGFR >90 >=60 mL/min/1. 73 m2 Comment: [...] last reviewed 2021. Blood 06/09/2024 8:33 AM RECEIVING SPECIALIST 06/09/2024 8:36 AM RECEIVING SPECIALIST us Jesenia Mckeon MD LAB BLOOD ORDERABLES Final Re sult [facility] ([place]) 1 [facility] [place] [address] * (ABNORMAL) Drugs of Abuse Screen, Urine without Confirmation (06/09/2024 8:33 AM RECEIVING SPECIALIST) Amphetamine, ur Screen Positive, presumptive (A) CutOff [...] Methadone, ur Not Detected CutOff 300ng/mL [facility] ([place]) Comment: Interpretive Data - Methadone: Samples [...] revised on 2017. Urine 06/09/2024 8:33 AM RECEIVING SPECIALIST 06/09/2024 9:03 AM RECEIVING SPECIALIST Narrative [facility] ([place]) - 06/09/2024 9:31 AM RECEIVING SPECIALIST Drug of Abuse screening is performed by immunoassay for medical purposes only. This is not to be used for Pain Management purposes. us Jesenia Mckeon MD LAB URINE ORDERABLES Final Re sult [facility] ([place]) 1 [facility] Department [place] [address] * (ABNORMAL) CBC without differential (06/09/2024 8:33 AM RECEIVING SPECIALIST) WBC 5.2 3.8 - 9.9 K/cumm Hgb [...] [facility] ([place]) Blood 06/09/2024 8:33 AM RECEIVING SPECIALIST 06/09/2024 8:36 AM RECEIVING SPECIALIST us Jesenia Mckeon MD LAB BLOOD ORDERABLES Final Re sult [facility] ([place]) 1 [facility] Department [place] [address] * (ABNORMAL) Comprehensive metabolic panel (06/09/2024 8:33 AM RECEIVING SPECIALIST) Pathologist [facility] Sodium 140 135 - 145 mmol/L [...] [facility] ([place]) Blood 06/09/2024 8:33 AM RECEIVING SPECIALIST 06/09/2024 8:36 AM RECEIVING SPECIALIST us Jesenia Mckeon MD LAB BLOOD ORDERABLES Final Re sult [facility] ([place]) 1 [facility] [place] [address] from Last 3 Months Insurance [employer]TER [facility] Advance Directives For more information, please contact: [phone] * Full Code (Latest Code Status on File) Date Activated Date Inactivated Comments 06/09/2024 2:35 PM 06/12/2024 5:25 PM * Full Code Date Activated Date Inactivated Comments 04/25/2024 5:41 PM 05/07/2024 7:44 PM Care Teams V Block Saw Operator Relationship Specialty Start Date End Date Bladimir Crowder MD [address] [place] [address] PCP - General Family Medicine 04/25/24
--- OUTSIDE RECORDS SUMMARY | 2024-08-13 08:22 | XMS_ITS | Patient Health Record ---
Author Organization [facility] Address [address] [place] [address] Care Team Providers Care Head Paper Tester Name Role Phone SagarHolli Primary Care Provider Chanel Baires Unavailable [phone] Ana Zafar Unavailable [phone] Lesly Valenzuela Unavailable [phone] Lien Higuera Unavailable [phone] Allergies No Known Allergies Results Component Value Reference Range Notes 12 Panel Urine Drug Screen Reviewed date:06/14/2024 04:06:29 PM Interpretation: Performing Lab: Notes/Report: THC POS RAMYA neg MOP (OPI) neg AMP neg MET neg BAR neg BZO POS MDMA neg MTD neg OXY neg PCP neg BUP neg Breathalyzer Reviewed date:06/14/2024 04:06:36 PM Interpretation: Performing Lab: Notes/Report: DENILSON 0.021 Test, Urine Reviewed date:06/14/2024 04:06:41 PM Interpretation: Performing Lab: Notes/Report: Test, Urine NEG Negative - Negative Reason For Referral No Information Medications Medication [...] % External for 11 Days Not-Taking Creon [id number] UNIT Oral for 31 Days Not-Taking Ondansetron [...] with others, in a hotel, in a retirement, living outside on the street, on a [...] phone, visiting friends or family, going to yazidism or club meetings) 1 or 2 times a week How stressed are you? Stress is when someone feels tense, nervous, anxious, or can\t sleep at night because their mind is troubled Very much In the past year have you sp ent more than 2 nights in a row in a assisted, custodial, fpc center, or juvenile correctional facility? No Are [...] W/U Status Risk Notes Problem Bipolar disorder (75655747) Bipolar disorder (F31.9) Active confirmed Self reported diagnosis. Scheduled for full psychiatric eval. Problem Alcohol use disorder (3299125707) Alcohol use disorder (F10.99) Active confirmed Problem Overweight (843094738) Overweight (BMI 25.0-29.9) (E66.3) Active confirmed Vital Signs Heart Rate 62 /min 06/13/2024 Temperature 97.9 degrees Fahrenheit 06/13/2024 Respiratory Rate 16 /min 06/13/2024 Blood pressure diastolic 72 mm Hg 06/13/2024 Oximetry 99 % 06/13/2024 Height 63.25 in 06/13/2024 Blood pressure systolic 132 mm Hg 06/13/2024 Weight 157.4 lbs 06/13/2024 BMI 27.66 kg/m2 06/13/2024 Encounters Encounter Location Date Provider Diagnosis [facility] [address] [place] [address] 06/12/2024 Lien Higuera ETOH abuse F10.10 and Bipolar disorder F31.9 [facility] [address] [facility] [place] [address] 06/12/2024 Holli Keith Adult general medical exam Z00.00 ; Nutritional counseling Z71.3 and ETOH abuse F10.10 [facility] [address] [place] [address] 06/13/2024 Chanel Baires Alcohol use disorder F10.99 ; Overweight (BMI 25.0-29.9) E66.3 and Nutritional counseling Z71.[address] [address] 06/13/2024 Lesly Valenzuela Bipolar disorder F31.9 and Alcohol use disorder F10.[address] [place] [address] 06/14/2024 Ana Zafar Assessments Encounter Date Diagnosis [...] 06/12/2024 Other Continue treatment as recommended by [facility] staff. Encouraged patient to obtain routine medical care with patient's own primary care provider or establish as a patient at [facility] if no current primary care provider. 06/13/2024 Other Discussed medication side effects, adverse effects, risks, benefits, as well as interactions. Encouraged non-use of alcohol. Has Vivitrol alert bracelet, necklace and wallet card. Recommended participation in recovery groups/counseling services. Agrees to contact office with questions or concerns. Patient may self-administe r their own medications or may self-administe r their own oral medications per [facility] Protocol. Plan Of Treatment Future Test Test Name Order Date QuantiFERON-TB Gold Plus (112094) 2024 Insurance Providers Payer Name Payer Address Payer Phone Subscriber Number Group Number Insured Name Patient Relationship to Insured Coverage Start Date Coverage End Date [employer] [address] [place] [phone] [id number] Latrice Valencia Self - patient is the insured 3 [employer] [address] [address] [place] [address] [id number] Latrice Valencia Self - patient is the insured 5 [employer] [place] [facility] [address] [place] [phone] [id number] Latrice Valencia Self - patient is the insured 3 Medications Administered Medication Instructions Date of Administration Dosage Notes Vivitrol 06/13/2024 380 mg Sima Pete 06/13/2024 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 Patient tolerated the injection well. 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
--- OUTSIDE RECORDS SUMMARY | 2024-08-13 08:22 | XMS_ITS | Clinical Summary ---
Author Organization [facility] Address [facility] [place] [address] Care Team Providers Care Manager Ed Name Role Phone Lelia Lemos MD Primary Care Provider [phone] Allergies No known active allergies Medications gabapentin (NEURONTIN) 300 MG capsule Take 400 mg by mouth 3 (three) times daily. 11/03/2023 Active Active Problems Problem Noted Date Diagnosed Date Alcoholic pancreatitis (HHS/HCC) 01/13/2023 Pancreatitis (HHS/HCC) 01/11/2023 Encounters Date Type Department Care Team Description 07/07/2024 9:48 PM CDT - 07/07/2024 11:59 PM CDT Hospital Encounter [facility] [address] [facility] [place] [address] Verna Raymundo MD Discharge Disposition: Home or Self Care (Routine Discharge) 07/07/2024 Travel 05/29/2024 Transcribe Orders [address] [place] [address] Verna Raymundo MD from Last 3 Months [...] money to buy more. Often true 01/12/20 Within the past 12 months, t he [...] place to sleep or slept in a half-way (including now)? Yes 01/11/2023 Comments No Sex and Gender Information Value Date Recorded Sex Assigned at Female 05/25/2024 11:14 AM FIREBREAK CUTTER Legal Sex Female 2:39 PM CDT Gender Identity Not on file Sexual Orientation Not on file Last Filed Vital Signs Vital Sign Reading Time Taken Comments Blood Pressure 139/79 03/18/2024 4:25 PM FIREBREAK CUTTER Pulse 75 03/18/2024 4:25 PM FIREBREAK CUTTER Temperature 36.4 C (97.5 F) 03/18/2024 3:16 PM FIREBREAK CUTTER Respiratory Rate 18 03/18/2024 4:25 PM FIREBREAK CUTTER Oxygen Saturation 98% 03/18/2024 4:25 PM FIREBREAK CUTTER Inhaled Oxygen Concentration - - Weight 68 kg (150 lb) 03/18/2024 3:16 PM FIREBREAK CUTTER Height 162.6 cm (5' 4 ) 03/18/2024 3:16 PM FIREBREAK CUTTER Body Mass Index 25.75 03/18/2024 3:16 PM FIREBREAK CUTTER Plan of Treatment Health Maintenance Due Date Last Done Comments Colorectal Cancer Screening Colonoscopy (10 Years) 1973 Annual Physical 1976 Hepatitis C 1991 DTaP, Tdap and Td Vaccines ( 1 - Tdap) 1992 Hepatitis B Vaccines (1 of 3 - 19+ 3-dose series) 1992 Pneumococcal Vaccine: 50+ Ye ars (1 of 2 - PCV) 1992 Zoster Vaccines (1 of 2) 2023 COVID-19 Vaccine ( - 2023-2 5 season) 2023 Mammogram Screening [...] PARAMETERS Routine 07/07/2024 9:48 PM CDT Snoring POLYSOMNOGRAPHY 4 OR MORE PARAMETERS Routine 07/07/2024 9:48 PM CDT Hypersomnia MG SCREENING W BIRGIT LUCIAN DIGI Routine 03/29/2024 10:02 AM FIREBREAK CUTTER Visit for screening mammogram from Last 3 Months or Most Recently Relevant to Health Maintenance Results * Diagnostic PSG (36044, 08077) (07/07/2024 9:48 PM CDT) 07/07/2024 9:48 PM CDT Narrative ESCRIPTION - 07/10/2024 12:32 PM CDT Patient Name: LATRICE RITCHIE Date of : 1975 Account: [id number] Facility: [facility] Location: [facility] Date of Service: 07/07/2024 Sleep Study PROCEDURE: Sleep study plus CPAP titration. ORDERED BY: Gene Raymundo MD. [facility] INDICATION: To assess for sleep apnea. A 49-year-old female, body weight 153 pounds, height of 5 feet 4 inches, BMI of 26, has snoring, hypersomnia, ESS 13/24. METHOD USED: [facility] polysomnography method. SLEEP SUMMARY: Patient was monitored [...] mask with close followup including downloads and [id number] evaluation. 2. General recommendation to treat sleep apnea, including assessment to upper airways, and thyroid function. Safety in terms of driving and working around machineries till sleep apnea treated, and hypersomnia resolved Education about risks and benefits of treating sleep apnea, and close follow up. Avoid sedatives and hypnotics Clinical correlation is required. Kieko Raymundo MD [facility] Diplomate, [employer] of sleep Medicine #[id number] /NATALIA A copy of this report has been sent to: LELIA LEMOS MD([employer]) Procedure Note Verna Raymundo MD - 07/10/2024 Patient Name: LATRICE RITCHIE Date of : 1975 Account: [id number] Facility: [facility] Location: [facility] Date of Service: 07/07/2024 Sleep Study PROCEDURE: Sleep study plus CPAP titration. ORDERED BY: Gene Raymundo MD. [facility] INDICATION: To assess for sleep apnea. A 49-year-old female, body weight 153 pounds, height of 5 feet 4 inches, BMI of 26, has snoring, hypersomnia, ESS 13/24. METHOD USED: [facility] polysomnography method. SLEEP SUMMARY: Patient was monitored [...] mask with close followup including downloads and [id number] evaluation. 2. General recommendation to treat sleep apnea, including assessment toupper airways, and thyroid function. Safety in terms of driving and working around machineries till sleep apneatreated, and hypersomnia resolved Education about risks and benefits of treating sleep apnea, and closefollow up. Avoid sedatives and hypnotics Clinical correlation is required. Keiko Raymundo MD FCCP Diplomate, [employer] of sleep Medicine #[id number] /NATALIA A copy of this report has been sent to: LELIA LEMOS MD([employer]) [facility] Nilo Raymundo MD SLEEP CENTER ORDERABLE S Final Result ESCRIPTION * MG SCREENING W BIRGIT LUCIAN DIGI (03/29/2024 10:02 AM FIREBREAK CUTTER) Anatomical Region Laterality Modality Breast Bilateral Mammography 03/29/2024 11:5 4 AM FIREBREAK CUTTER Impressions 03/29/2024 11:55 AM FIREBREAK CUTTER IMPRESSION: No mammographic evidence of malignancy. Recommendation: 1: Routine Screening Bilateral in 1 Year Assessment: ACR BI-RADS 2 - BENIGN FINDING(S) Ordered By: BLADIMIR LATHAM Interpreted By: Varun Quevedo MD, 03/29/2024 11:54 AM Narrative 03/29/2024 11:55 AM FIREBREAK CUTTER [address] [place] [address] Examination: Digital screening mammogram with CAD. Clinical [...] 7:19 PM 01/14/2023 10:44 PM Care Teams Manager Ed Relationship Specialty Start Date End Date Lelia Lemos MD [address] [place] [phone] PCP - General FAMILY PRACTICE 03/18/24
--- OUTSIDE RECORDS SUMMARY | 2024-08-13 08:22 | XMS_ITS | Clinical Summary ---
Author Organization [facility] Address [address] [place] [address] Care Team Providers Care Mechanic Welder Name Role Phone Bladimir Crowder MD Primary Care Provider [phone] Allergies No known active allergies Medications gabapentin [...] 06/09/2024 Assessment & Plan (06/09/2024 3:43 PM COOK SUPERVISOR): Chronic hx. Managed w/ Creon TID. Pt has non-specific abdominal pain in the setting of alcohol withdrawal. Amylase and lipase are normal. Acute pancreatitis is unlikely. Plan: - Continue Creon - Monitor IV fluids - If abdominal pain persists or worsens, consider CT abdomen Cirrhosis 06/09/2024 Assessment & Plan (06/09/2024 3:33 PM COOK SUPERVISOR): Chronic hx. LFTs are normal. PT, PTT, and INR are normal. Currently stable Plan: - Monitor for symptoms Unspecified mood disorder 05/02/2024 Alcohol withdrawal syndrome without complication 04/25/2024 Assessment & Plan (06/09/2024 3:42 PM COOK SUPERVISOR): 49 y/o female w/ alcohol use [...] Date Type Department Care Team Description 08/11/2024 [facility] Outreach [facility] [address] [place], [place] [phone] Sanaz Thomason 08/11/2024 [facility] Initial Eligibility [facility] [address] [place], [place] [phone] Sanaz Thomason 06/12/2024 Documentation [facility] [address] [place], [place] [phone] Bruno Jefferson 06/11/2024 Documentation [facility] [address] [place], [place] [phone] Latrice Dumont 06/10/2024 Documentation [facility] [address] [place], [place] [phone] Latrice Dumont 06/09/2024 11:27 AM COOK SUPERVISOR - 06/12/2024 1:20 PM COOK SUPERVISOR Hospital Encounter [facility] 1 [place] [address] Jesenia Mckeon MD Okonkwo, Kasiemobi Bernice, MD Richards, Davi Simmons Jr., MD Alcohol withdrawal syndrome without complication (HCC) (Primary Dx); Chronic pancreatitis, unspecified pancreatitis type (HCC) [K86.1] Discharge Disposition: Discharge to not [facility] facility 06/09/2024 8:20 AM COOK SUPERVISOR Lab [address] [phone] 06/09/2024 [facility] Enrollment [facility] [address] [place], [place] [phone] Latrice Dumont 05/28/2024 [facility] Initial Eligibility [facility] [address] [place] [address] Bo Rojas 05/17/2024 [facility] Outreach [facility] [address] [place] [address] Jana Hilario from Last 3 Months Social History Tobacco [...] Comments Blood Pressure 128/74 06/12/2024 11:09 AM COOK SUPERVISOR Pulse 67 06/12/2024 11:09 AM COOK SUPERVISOR Temperature 36.4 C (97.5 F) 06/12/2024 11:09 AM COOK SUPERVISOR Respiratory Rate 15 06/12/2024 11:09 AM COOK SUPERVISOR Oxygen Saturation 97% 06/12/2024 11:09 AM COOK SUPERVISOR Inhaled Oxygen Concentration - - Weight 69.4 kg (153 lb) 06/09/2024 11:47 AM COOK SUPERVISOR Height 165.1 cm (5' 5 ) 06/09/2024 11:47 AM COOK SUPERVISOR Body Mass Index 25.46 06/09/2024 11:47 AM COOK SUPERVISOR Plan of Treatment Upcoming Encounters Date Type Department Care Team (Late st Contact Info) Description 08/15/2024 11:30 AM CDT Hospital Encounter [facility] [address] [place] [phone] Health Maintenance Due Date Last Done Comments Colon Cancer Screening-Colonoscopy 1975 Depression Screening 1975 DTaP/Tdap/Td Vaccine (1 - Tdap) 1984 Hepatitis B Screening 1991 Regular Well Visit/Exam 18-64 1991 Pneumococcal vaccine <65 (1 of 2 - PCV) 1992 Zoster Vaccine (1 of 2) 2023 Influenza Vaccine (Season Ended) 2024 Breast Cancer Screening-Mammogram 03/29/2025 024, 03/29/2024 Hepatitis C Screening Completed 06/11/2024 Procedures Procedure Name Priority Date/Time Associated Diagnosis Comments EGFR Routine 06/12/2024 5:10 AM COOK SUPERVISOR DIFFERENTIAL AUTO Routine 06/12/2024 5:1 0 AM COOK SUPERVISOR CBC WITH AUTO DIFFERENTIAL Routine 06/12/2024 5:10 AM COOK SUPERVISOR BASIC METABOLIC PANEL Routine 06/12/2024 5:10 AM COOK SUPERVISOR CLINICAL PATHOLOGY REPORT Routine 06/11/2024 2:[address] ABDOMEN PELVIS W CONTRAST ED 06/11/2024 1:27 PM COOK SUPERVISOR ANTI-DOUBLE STRANDED DNA ANTIBODIES Routine 06/11/2024 11:59 AM COOK SUPERVISOR TONY QUALITATIVE WITH REFLEX TO TONY QUANTITATIVE Routine 06/11/2024 11:59 AM COOK SUPERVISOR FOLATE Routine 06/11/2024 11:59 AM COOK SUPERVISOR VITAMIN B12 Routine 06/11/2024 11:59 AM COOK SUPERVISOR HIV 1/2 ANTIBODY PLUS P24 ANTIGEN Routine 06/11/2024 11:59 AM COOK SUPERVISOR HEPATITIS PANEL, ACUTE Routine 11:59 AM COOK SUPERVISOR SLIDE REVIEW - PATHOLOGIST Routine 06/11/2024 5:34 AM COOK SUPERVISOR EGFR Routine 06/11/2024 5:34 AM COOK SUPERVISOR DIFFERENTIAL AUTO Routine 06/11/2024 5:3 4 AM COOK SUPERVISOR CBC WITH AUTO DIFFERENTIAL Routine 06/11/2024 5:34 AM COOK SUPERVISOR BASIC METABOLIC PANEL Routine 06/11/2024 5:34 AM COOK SUPERVISOR POCT GLUCOSE DEVICE Routine 06/11/2024 3 :01 AM COOK SUPERVISOR EGFR STAT 06/10/2024 7:50 AM COOK SUPERVISOR DIFFERENTIAL AUTO STAT 06/10/2024 7:5 0 AM COOK SUPERVISOR BASIC METABOLIC PANEL STAT 06/10/2024 7:50 AM COOK SUPERVISOR CBC WITH AUTO DIFFERENTIAL STAT 06/10/2024 7:50 AM COOK SUPERVISOR ETHANOL STAT 06/09/2024 2:55 PM COOK SUPERVISOR APTT STAT 06/09/2024 2:55 PM COOK SUPERVISOR PROTIME-INR STAT 06/09/2024 2:55 PM COOK SUPERVISOR LIPASE STAT 06/09/2024 2:55 PM COOK SUPERVISOR AMYLASE STAT 06/09/2024 2:55 PM COOK SUPERVISOR EGFR STAT 06/09/2024 8:33 AM COOK SUPERVISOR DRUGS OF ABUSE SCREEN, URINE WITHOUT CONFIRMATION STAT 06/09/2024 8:33 AM COOK SUPERVISOR CBC WITHOUT DIFFERENTIAL STAT 06/09/2024 8:33 AM COOK SUPERVISOR COMPREHENSIVE METABOLIC PANEL STAT 06/09/2024 8:33 AM COOK SUPERVISOR from Last 3 Months Results * eGFR (06/12/2024 5:10 AM COOK SUPERVISOR) eGFR >90 >=60 mL/min/1. 73 m2 [...] last reviewed 2021. Blood 06/12/2024 5:10 AM COOK SUPERVISOR 06/12/2024 5:38 AM COOK SUPERVISOR us Dana Maradiaga MD LAB BLOOD ORDERABLE S Final Result [facility] ([place]) 1 [facility] [place] [address] * (ABNORMAL) Differential, auto (06/12/2024 5:10 AM COOK SUPERVISOR) Neutrophil abs 1.4(L) 1.5 - 6.5 K/cumm Imm gran abs 0.0 0.0 - 0.1 K/cumm [facility] ([place]) Lymphocyte abs 1.0 0.8 - 3.3 K/cumm [facility] ([place]) Monocyte abs 0.3 0.2 - 0.8 K/cumm [facility] ([place]) Eosinophil abs 0.1 0.0 - 0.5 K/cumm [facility] ([place]) Basophil abs 0.0 0.0 - 0.1 K/cumm [facility] ([place]) Neutrophil pct 51.3 % [facility] ([place]) Comment: Interpretive Data Percent cell count reference ranges are not reported, since discordance with absolute values may lead to misinterpretation of CBC data. Current Interpretive Data was last revised on 2017. Imm gran pct 0.4 % [facility] ([place]) Comment: Interpretive Data Percent cell count reference [...] 2017. Monocyte pct 10.4 % [facility] ([place]) Comment: Interpretive Data Percent cell count reference ranges are not reported, since discordance with absolute values may lead to misinterpretation of CBC data. Current Interpretive Data was last revised on 2017. Eosinophil pct 1.8 % [facility] ([place]) Comment: Interpretive Data Percent cell count reference [...] revised on 2017. Blood 06/12/2024 5:10 AM COOK SUPERVISOR 06/12/2024 5:38 AM COOK SUPERVISOR us Dana Maradiaga MD LAB BLOOD ORDERABLE S Final Result [facility] ([place]) 1 [facility] [place] [address] * (ABNORMAL) CBC with auto differential (06/12/2024 5:10 AM COOK SUPERVISOR) WBC 2.8(L) 3.8 - 9.9 K/cumm [...] [facility] ([place]) Blood 06/12/2024 5:10 AM COOK SUPERVISOR 06/12/2024 5:38 AM COOK SUPERVISOR us Dana Maradiaga MD LAB BLOOD ORDERABLE S Final Result [facility] ([place]) [address] [facility] [employer] [place] [address] * (ABNORMAL) Basic metabolic panel (06/12/2024 5:10 AM COOK SUPERVISOR) Sodium 141 135 - 145 mmol/L Potassium, pl 3.7 3.3 - 4.9 mmol/L [facility] ([place]) Chloride 107 97 - 110 mmol/L [facility] ([place]) CO2 21(L) 22 - 32 mmol/L [facility] ([place]) Anion gap 13 2 - 15 mmol/L [facility] ([place]) BUN 15 6 - 25 mg/dL [facility] ([place]) Creatinine 0.61 0.60 - 1.10 mg/dL [facility] ([place]) Glucose 109 70 - 199 mg/dL [facility] ([place] [...] - 10.3 mg/dL [facility] ([place]) Blood 06/12/2024 5:10 AM COOK SUPERVISOR 06/12/2024 5:38 AM COOK SUPERVISOR Dana Maradiaga MD LAB BLOOD ORDERABLE S Final Result [facility] ([place]) 1 [facility] [place] [address] * Clinical pathology report (06/11/2024 2:24 PM COOK SUPERVISOR) Miscellaneous 06/11/2024 2:2 4 PM COOK SUPERVISOR 06/11/2024 2:24 PM COOK SUPERVISOR Narrative 06/12/2024 8:53 AM COOK SUPERVISOR EPIC results best viewed via link to PDF [facility] Department of Pathology [address] [place], [place] [id number] Final Report Note to Patients: This report [...] the details. Patient Name: LATRICE RITCHIE Address: [address] [place], [place] [id number] Gender: F : 1975 (Age: 49) Service: Medical Location: [facility] Hospital #: [id number] Patient Type: [facility] Taken: 06/11/2024 Received: 06/11/2024 Accessioned: [...] determined by the Surgical Pathology Department at [facility] as part of an ongoing quality consultant program and in compliance with federally mandated [...] characteristics determined by the Surgical Pathology Department [facility]. It has not been cleared or approved by the U. S. Food and Drug Administration. REPORT IMAGES AND SCANNED DOCUMENTS, IF INCLUDED, ONLY VIEWABLE IN PDF VERSION OF REPORTe o Dana Maradiaga MD LAB PATHOLOGY ORDER LOPEZ Final Result * CT Abdomen Pelvis W Contrast (06/11/2024 1:27 PM COOK SUPERVISOR) Anatomical Region Laterality Modality Body N/A Computed Tomogra phy 06/11/2024 1:34 PM COOK SUPERVISOR Narrative 06/11/2024 1:47 PM COOK SUPERVISOR EXAM DESCRIPTION: CT ABDOMEN PELVIS W [...] Galaviz M.D. AG: MARIA LUISA Report ID: [id number] Reading Location: [id number] Procedure Note Eber Galaviz MD - 06/11/2024 [...] Eber Galaviz M.D. AG: AG Report ID: [id number] Reading Location: [place] [address] Dana Maradiaga MD IM CT PROCEDURES F inal Result * (ABNORMAL) TONY ab ql w/rflx to TONY qn (06/11/2024 11:59 AM COOK SUPERVISOR) TONY Positive 1:320 Comment: Interpretive Data [...] last revised on 2019. Testing performed by: [facility], [address] [place]., [address] TONY, quant 1:320 titer AMIE Pe[facility] ([place]) Comment:Testing performed by : [facility], [address] [place] [address]., [id number] TONY, interp Speckled(A) [facility] ([place]) Comment:Testing performed by : [facility], [address] [place] [address]., [id number] Blood 06/11/2024 11:5 9 AM COOK SUPERVISOR 06/11/2024 2:52 PM COOK SUPERVISOR Dana Maradiaga MD LAB BLOOD ORDERABLE S Final Result [facility] ([place]) 1 [facility] [place] [address] * Anti-double stranded DNA abs (06/11/2024 11:59 AM COOK SUPERVISOR) dsDNA Ab <1.0 <=4.0 IUnits/mL Comment: Interpretive Data Negative: < or = 4 IUnits/mL Indeterminate: 5 - 9 IUnits/mL Positive: > or = 10 IUnits/mL Current interpretive data was last revised on 2016. Testing performed by: [facility], [address] [place] [address]., [id number] Blood 06/11/2024 11:5 9 AM COOK SUPERVISOR 06/11/2024 2:52 PM COOK SUPERVISOR us Dana Miwo MD LAB BLOOD ORDERABLE S Final Result [facility] ([place]) 1 [place] [address] * HIV 1/2 Antibody plus p24 Antigen Blood (06/11/2024 11:59 AM COOK SUPERVISOR) [facility] HIV 1/2 ab + p24 ag Nonreactive Nonreactive Comment: Nonreactive for HIV-1 antigen and HIV-1/HIV-2 antibodies. No laboratory evidence of HIV infection. If acute HIV infection is suspected, consider testing for HIV-1 RNA. Testing performed by: [address] [address] Blood 06/11/2024 11:5 9 AM COOK SUPERVISOR 06/11/2024 1:56 PM COOK SUPERVISOR us Dana Maradiaga MD LAB MICROBIOLOGY - GENERAL ORDERABLES Final Result Performing Organization Address City/[facility]/ZIP Co de Phone Number [facility] ([place]) 1 [facility] [place] [employer] [address] * Hepatitis panel, acute Blood (06/11/2024 11:59 AM COOK SUPERVISOR) [facility] Hep A IgM Nonreactive Nonreactive Comment: Interpretive Data: If Hep A IgM Ab is reported as Equivocal, a new sample should be drawn in two weeks for testing. Current interpretive data was last revised on 19. Testing performed by: [address] [address] Hep B core IgM Nonreactive Nonreactive [facility] ([place]) Comment: Interpretive Data If HepB Core IgM Ab is reported as Equivocal, a new sample should be drawn in two weeks for testing. Current interpretive data was last revised on 19. Testing performed by: [address] [address] Hep C Ab Nonreactive Nonreactive [facility] ([place]) Comment: Interpretive Data Nonreactive: Antibodies to [...] last revised on 2019. Testing performed by: [facility], [address] [place] [address]., [address] HepBsAg Nonreactive Nonreactive [facility] Comment:Testing performed by : [facility], [address] [place] [address]., [address] Blood 06/11/2024 11:5 9 AM COOK SUPERVISOR 06/11/2024 1:56 PM COOK SUPERVISOR us Dana Maradiaga MD LAB MICROBIOLOGY - GENERAL ORDERABLES Final Result Performing Organization Address [facility] Co de Phone Number AMIE [facility] ([place]) 1 [facility] [place] [address] * Folate (06/11/2024 11:59 AM COOK SUPERVISOR) Folic acid >20.0 >=5.0 ng/mL Comment:Slightly Hemolyzed S pecimen. Results may be affected. Blood 06/11/2024 11:5 9 AM COOK SUPERVISOR 06/11/2024 12:25 PM COOK SUPERVISOR us Dana Maradiaga MD LAB BLOOD ORDERABLE S Final Result Performing Organization Address City/[facility]/ZIP Co de Phone Number [facility] ([place]) 1 [facility] [place] [address] * Vitamin B12 (06/11/2024 11:59 AM COOK SUPERVISOR) Vitamin B12 630 230 - 1,250 pg/mL Blood 06/11/2024 11:5 9 AM COOK SUPERVISOR 06/11/2024 12:25 PM COOK SUPERVISOR us Dana Maradiaga MD LAB BLOOD ORDERABLE S Final Result [facility] [place]) 1 [facility] [place] [address] * Slide review - pathologist (06/11/2024 5:34 AM COOK SUPERVISOR) Slide review by Dr Vaughn Diop Comment: [facility] # [id number] Interpretive Data See Clinical Pathology Report under Media section in EPIC. Current Interpretive Data was last revised on 2018. Blood 06/11/2024 5:34 AM COOK SUPERVISOR 06/11/2024 11:19 AM COOK SUPERVISOR Dana Maradiaga MD LAB BLOOD ORDERABLE S Final Result Performing Organization Address City/[facility]/ZIP Co de Phone Number [facility] ([place]) 1 [facility] [place] [address] * eGFR (06/11/2024 5:34 AM COOK SUPERVISOR) eGFR >90 >=60 mL/min/1. 73 m2 [...] last reviewed 2021. Blood 06/11/2024 5:34 AM COOK SUPERVISOR 06/11/2024 5:59 AM COOK SUPERVISOR us Dana Maradiaga MD LAB BLOOD ORDERABLE S Final Result [facility] ([place]) 1 [facility] [place] [address] * (ABNORMAL) Differential, auto (06/11/2024 5:34 AM COOK SUPERVISOR) Neutrophil abs 1.0(L) 1.5 - 6.5 K/cumm Imm gran abs 0.0 0.0 - 0.1 K/cumm [facility] ([place]) Lymphocyte abs 1.1 0.8 - 3.3 K/cumm [facility] ([place]) Monocyte abs 0.4 0.2 - 0.8 K/cumm [facility] ([place]) Eosinophil abs 0.1 0.0 - 0.5 K/cumm [facility] ([place]) Basophil abs 0.0 0.0 - 0.1 K/cumm [facility] ([place]) Neutrophil pct 39.0 % [facility] ([place]) Comment: Interpretive Data Percent cell count reference ranges are not reported, since discordance with absolute values may lead to misinterpretation of CBC data. Current Interpretive Data was last revised on 2017. Imm gran pct 0.0 % [facility] ([place]) Comment: Interpretive Data Percent cell count reference [...] 2017. Monocyte pct 14.7 % [facility] ([place]) Comment: Interpretive Data Percent cell count reference [...] revised on 2017. Blood 06/11/2024 5:34 AM COOK SUPERVISOR 06/11/2024 5:57 AM COOK SUPERVISOR Dana Maradiaga MD LAB BLOOD ORDERABLE S Final Result [facility] ([place]) 1 [facility] [place] [address] * (ABNORMAL) CBC with auto differential (06/11/2024 5:34 AM COOK SUPERVISOR) WBC 2.6(L) 3.8 - 9.9 K/cumm [...] [facility] ([place]) Blood 06/11/2024 5:34 AM COOK SUPERVISOR 06/11/2024 5:57 AM COOK SUPERVISOR Dana Maradiaga MD LAB BLOOD ORDERABLE S Final Result [facility] ([place]) 1 [facility] [place] [address] * (ABNORMAL) Basic metabolic panel (06/11/2024 5:34 AM COOK SUPERVISOR) Sodium 140 135 - 145 mmol/L [...] - 10.3 mg/dL [facility] ([place]) Blood 06/11/2024 5:34 AM COOK SUPERVISOR 06/11/2024 5:59 AM COOK SUPERVISOR Dana Maradiaga MD LAB BLOOD ORDERABLE S Final Result [facility] ([place]) 1 [facility] [place] [address] * POCT glucose (06/11/2024 3:01 AM COOK SUPERVISOR) Glucose, POC 92 70 - 199 mg/dL Blood 06/11/2024 3:01 AM COOK SUPERVISOR 06/11/2024 3:01 AM COOK SUPERVISOR Dana Maradiaga MD LAB POCT ORDERABLES - DEVICE Final Result [facility] ([place]) [address] [facility] [employer] [place] [address] * eGFR (06/10/2024 7:50 AM COOK SUPERVISOR) eGFR >90 >=60 mL/min/1. 73 m2 [...] last reviewed 2021. Blood 06/10/2024 7:50 AM COOK SUPERVISOR 06/10/2024 8:39 AM COOK SUPERVISOR Dana Maradiaga MD LAB BLOOD ORDERABLE S Final Result [facility] ([place]) 1 [facility] [place] [address] * Differential, auto (06/10/2024 7:50 AM COOK SUPERVISOR) Neutrophil abs 1.5 1.5 - 6.5 [...] was last revised on 2017. Blood 06/10/2024 7:5 0 AM COOK SUPERVISOR 06/10/2024 8:39 AM COOK SUPERVISOR us Dana Maradiaga MD LAB BLOOD ORDERABLE S Final Result [facility] ([place]) 1 [facility] [place] [address] * (ABNORMAL) CBC with auto differential (06/10/2024 7:50 AM COOK SUPERVISOR) Pathologist [facility] WBC 3.2(L) 3.8 - 9.9 K/cumm Hgb [...] [facility] ([place]) Blood 06/10/2024 7:50 AM COOK SUPERVISOR 06/10/2024 8:39 AM COOK SUPERVISOR us Dana Maradiaga MD LAB BLOOD ORDERABLE S Final Result [facility] ([place]) 1 [facility] [place] [address] * (ABNORMAL) Basic metabolic panel (06/10/2024 7:50 AM COOK SUPERVISOR) Sodium 137 135 - 145 mmol/L Potassium, pl 3.5 3.3 - 4.9 mmol/L [facility] ([place]) Chloride 105 97 - 110 mmol/L [facility] ([place]) CO2 23 22 - 32 mmol/L [facility] ([place]) Anion gap 10 2 - 15 mmol/L [facility] ([place]) BUN 19 6 - 25 mg/dL [facility] ([place]) Creatinine 0.54(L) 0.60 - 1.10 mg/dL [facility] ([place]) Glucose 90 70 - 199 mg/dL [facility] ([place]) Comment: Interpretive Data Fasting glucose [...] 2022. Calcium 9.2 8.5 - 10.3 mg/dL [facility] ([place]) Blood 06/10/2024 7:50 AM COOK SUPERVISOR 06/10/2024 8:39 AM COOK SUPERVISOR Dana Maradiaga MD LAB BLOOD ORDERABLE S Final Result [facility] ([place]) 1 [facility] [place] [address] * aPTT (06/09/2024 2:55 PM COOK SUPERVISOR) aPTT 32 28 - 38 sec [facility] ([place]) Comment: Interpretive Data Heparin therapeutic range: 66.0 - 100.0 seconds. Range based on correlation with therapeutic heparin activity range of 0.3 - 0.7 Units/mL. Current interpretive data was last revised on 2023. Blood 06/09/2024 2:55 PM COOK SUPERVISOR 06/09/2024 3:01 PM COOK SUPERVISOR Dana Maradiaga MD LAB BLOOD ORDERABLE S Final Result Performing Organization Address City/[facility] Co de Phone Number [facility] ([place]) 1 [facility] [place] [address] * Protime-INR (06/09/2024 2:55 PM COOK SUPERVISOR) PT 11.4 9.7 - 13.0 sec [facility] ([place]) INR 1.05 0.90 - 1.20 [facility] ([place]) Comment: Interpretive data Oral anticoagulant therapeutic ranges: Venous thromboembolism prophylaxis or treatment: 2.0-3.0 CARDIOLOGY Standard range: 2.0-3.0 High-intensity range: 2.5-3.5 Refer to indication-specific guidelines for appropriate target ranges for prosthetic heart valve replacement. Current interpretive data was last revised on 2019. Blood 06/09/2024 2:55 PM COOK SUPERVISOR 06/09/2024 3:01 PM COOK SUPERVISOR Dana Maradiaga MD LAB BLOOD ORDERABLE S Final Result Performing Organization Address [facility] Co de Phone Number [facility] ([place]) 1 [facility] [place] [address] * Lipase (06/09/2024 2:55 PM COOK SUPERVISOR) Lipase 92 10 - 99 Units/L Blood 06/09/2024 2:55 PM COOK SUPERVISOR 06/09/2024 3:01 PM COOK SUPERVISOR Dana Maradiaga MD LAB BLOOD ORDERABLE S Final Result Performing Organization Address City/[facility] Co de Phone Number [facility] ([place]) 1 [facility] [place] [address] * Amylase (06/09/2024 2:55 PM COOK SUPERVISOR) Amylase 58 30 - 99 Units/L Blood 06/09/2024 2:55 PM COOK SUPERVISOR 06/09/2024 3:01 PM COOK SUPERVISOR Dana Maradiaga MD LAB BLOOD ORDERABLE S Final Result [facility] ([place]) 1 [facility] [place] [address] * Ethanol (06/09/2024 2:55 PM COOK SUPERVISOR) Ethanol <10 <=10 mg/dL Comment: Interpretive Data Legal limit of intoxication > or = 80 mg/dL Levels > or = 400 mg/dL are potentially TOXIC. Current interpretive data was last revised on 2018. Blood 06/09/2024 2:55 PM COOK SUPERVISOR 06/09/2024 3:01 PM COOK SUPERVISOR Dana Maradiaga MD LAB BLOOD ORDERABLE S Final Result [facility] ([place]) [address] [place] [address] [place] [address] * eGFR (06/09/2024 8:33 AM COOK SUPERVISOR) eGFR >90 >=60 mL/min/1. 73 m2 [...] last reviewed 2021. Blood 06/09/2024 8:33 AM COOK SUPERVISOR 06/09/2024 8:36 AM COOK SUPERVISOR us Jesenia Mckeon MD LAB BLOOD ORDERABLES Final Re sult [facility] ([place]) 1 [facility] [place] [address] * (ABNORMAL) Drugs of Abuse Screen, Urine without Confirmation (06/09/2024 8:33 AM COOK SUPERVISOR) Pathologist [facility] Amphetamine, ur Screen Positive, presumptive (A) CutOff [...] Screen Positive, presumptive (A) CutOff 100ng/mL [facility] ([place]) Comment: Interpretive Data - Benzodiazepines: Samples containing greater than 100 ng/mL nordiazepam or other cross-reacting compounds are reported as positive. False positive and false negative results are possible. Confirmatory testing required for definitive results. Current Interpretive Data was last reviewed 2022. Cannabinoids, ur Screen Positive, presumptive (A) CutOff 50 ng/mL [facility] ([place]) Comment: Interpretive Data - Cannabinoids: [...] reviewed 2022. Urine Creatinine 373 mg/dL [facility] ([place]) Comment: Interpretive Data Urine Creatinine: < 10 mg/dL is extremely dilute = or > 10 but < 20 mg/dL is dilute = or > 20 mg/dL is normal Current Interpretive Data was last revised on 2017. Urine 06/09/2024 8:33 AM COOK SUPERVISOR 06/09/2024 9:03 AM COOK SUPERVISOR Narrative [facility] ([place]) - 06/09/2024 9:31 AM COOK SUPERVISOR Drug of Abuse screening is performed by immunoassay for medical purposes only. This is not to be used for Pain Management purposes. us Jesenia Mckeon MD LAB URINE ORDERABLES Final Re sult [facility] ([place]) 1 [facility] [place] [address] * (ABNORMAL) CBC without differential (06/09/2024 8:33 AM COOK SUPERVISOR) WBC 5.2 3.8 - 9.9 K/cumm [...] [facility] (ALLI) Blood 06/09/2024 8:33 AM COOK SUPERVISOR 06/09/2024 8:36 AM COOK SUPERVISOR us Jesenia Mckeon MD LAB BLOOD ORDERABLES Final Re sult [facility] (ALLI) [facility] [place] [address] * (ABNORMAL) Comprehensive metabolic panel (06/09/2024 8:33 AM COOK SUPERVISOR) Sodium 140 135 - 145 mmol/L [...] [facility] (ALLI) Blood 06/09/2024 8:33 AM COOK SUPERVISOR 06/09/2024 8:36 AM COOK SUPERVISOR us Jesenia Mckeon MD LAB BLOOD ORDERABLES Final Re sult [facility] (ALLI) [address] [facility] [place] [address] from Last 3 Months Insurance [employer] [facility] Advance Directives For more information, please contact: [phone] * Full Code (Latest Code Status on File) Date Activated Date Inactivated Comments 06/09/2024 2:35 PM 06/12/2024 5:25 PM * Full Code Date Activated Date Inactivated Comments 04/25/2024 5:41 PM 05/07/2024 7:44 PM Care Teams Mechanic Welder Relationship Specialty Start Date End Date Bladimir Crowder MD [address] [place] [id number] PCP - General Family Medicine 04/25/24
--- NOTE | 2024-08-13 08:24 | ED_ITS ---
HPI - Abdominal Pain General Chief Complaint: Abdominal Pain Stated Complaint: upset stomach Time Seen by Provider: 08/13/24 08:16 Source: patient Mode of arrival: ambulatory Limitations: no limitations History of Present Illness HPI narrative: 49 years old white female drove herself to the emergency room complaining of upper abdominal pain, nausea, vomiting, diarrhea started 2 days ago, and getting worse. History of alcoholism, chronic pancreatitis, liver cirrhosis,endometriosis, complete hysterectomy, Anxiety, depression,tobacco dependent. Patient drinks alcohol daily, last intake was 11:00 p.m. last night, patient usually drinks 1 she workup in the morning at 6:00 a.m. to 7:00 a.m.. Did not drink today because she is coming to us. She denies any fever, chills, shortness of breath or chest pain or drug use. Related Data Home Medications ?Medication ?Instructions ?Recorded ?Confirmed ?Last Taken ?Type gabapentin 300 mg capsule 400 mg PO TID 02/03/24 08/13/24 Unknown History nabumetone 500 mg PO TID 02/26/24 08/13/24 Unknown History gabapentin 400 mg capsule mg 08/13/24 Unknown History hydroxyzine pamoate 25 mg capsule 25 mg PO DAILY 08/13/24 08/13/24 Unknown History multivitamin with folic acid 400 1 tablet PO DAILY 08/13/24 08/13/24 Unknown History mcg tablet (Daily-Mira (with folic acid)) peg 3350-electrolytes 236 20 ml PO DAILY 08/13/24 08/13/24 Unknown History gram-22.74 gram-6.74 gram-5.86 gram solution (GaviLyte-G) sertraline 100 mg tablet 100 mg PO Q24H 08/13/24 08/13/24 Unknown History trazodone 150 mg tablet 150 mg PO DAILY 08/13/24 08/13/24 Unknown History Allergies Allergy/AdvReac Type Severity Reaction Status Date / Time No Known Allergies Allergy Verified 08/13/24 08:25 Review of Systems 2 Review of Systems: All systems reviewed & are unremarkable except as noted in HPI and below PMFSH Past Medical History Medical History Hypertension ETOH abuse Social History Social History Smoking status: Never smoker Second hand tobacco smoke exposure: No Alcohol intake: current Drinks per week: 30 Substance use: current Substance use type: marijuana Other substance usage details: Last drink was at 6am this morning Do You Feel Safe in your Home?: No Lack of Transportation: YES Lack of Food: Sometimes True Current Housing: I Do Not Have Housing Concerned About Future Housing: YES Difficulty Paying Gas/Electric Bills: YES Difficulty Paying for Meds: YES Currently Unemployed: YES Education: High School Diploma/GED Difficulty w/ Childcare or Family Care: No Spiritual care concerns: No Exam 2 Narrative: General appearance: Well-developed, well-nourished Skin: Normal color Head: Normocephalic, nontraumatic Eyes: Clear conjunctiva ENT: Oropharynx normal, ears normal, nose normal Neck: Supple, nontender Chest and respiratory: Airway patent, no respiratory distress, no accessory muscle use Heart: Regular rate/rhythm Abdomen: Soft, diffuse tenderness upper abdomen bilaterally, no guarding or rebound, no organomegaly, quiet bowel sounds Vascular: Normal peripheral pulses, normal capillary refill. Musculoskeletal: Normal range of motion, nontender back Neurologic: Alert and oriented ?3, BIT SHAVER is normal as tested, no gross motor deficit Course Vital Signs Vital signs: Vital Signs Temperature 36.6 C 08/13/24 08:17 Pulse Rate 82 08/13/24 08:17 Respiratory Rate 18 08/13/24 08:17 Blood Pressure 164/113 H 08/13/24 08:17 Pulse Oximetry 100 08/13/24 08:17 Oxygen Delivery Room Air 08/13/24 08:17 Temperature 36.6 C 08/13/24 08:17 Pulse Rate 78 08/13/24 09:08 Respiratory Rate 20 08/13/24 09:08 Blood Pressure 159/96 H 08/13/24 09:08 Pulse Oximetry 97 08/13/24 09:08 Oxygen Delivery Room Air 08/13/24 09:08 MDM - Abdominal Pain MDM Narrative Medical decision making narrative: patient came with upper abdominal pain and Vital signs showing blood pressure 164/113 otherwise within normal limit Physical examination showing diffuse tenderness upper abdomen bilaterally, restless, shaking Differential diagnosis include anxiety like symptoms, alcohol withdrawal, pancreatitis, gastritis, esophagitis, viral gastroenteritis, dehydration, electrolyte imbalance Blood workup today includes CBC, CMP, lipase , alcohol level showed WBC 3.5, platelets 79, potassium 3.0, glucose 120, AST 54, otherwise insignificant abnormality Urinalysis showed no evidence of infection CT abdomen and pelvis with IV contrast showed cirrhosis with portal vein hypertension, cholelithiasis Diagnosis abdominal pain of unknown etiology Discharged on Bentyl, Follow up with family physician in 3 5 days. The pt was discharged to home.the pt,s condition upon discharge was fair,education was provided to the pt in reference to the final impression,discharge study results,treatment,prognosis and need for follow up . Differential Diagnosis Differential diagnosis: Likely other ( as above) Medical Records Attestation: I reviewed the patient's medical records. Lab Data Attestation: I reviewed the patient's lab results. 08/13/24 08:38 08/13/24 08:38 Labs: Lab Results 08/13/24 08/13/24 08/13/24 Range/Units 08:24 08:38 08:39 WBC 3.5 L (4.8-10.8) K/mm3 RBC 4.33 (4.20-5.40) M/mm3 Hgb 13.8 (12.0-15.0) g/dL Hct 41.3 (35.0-49.0) % MCV 95.4 (78.0-102.0) fL MCH 31.9 H (27.0-31.0) pg MCHC 33.4 (32-36) g/dL RDW 13.3 (11.6-14.4) % Plt Count 79 L (150-420) K/mm3 MPV 10.3 (9.2-11.8) fl Immature Gran % (Auto) 0.3 H (0.0-0.0) % Neut % (Auto) 52.1 (50.0-70.0) % Lymph % (Auto) 32.6 (18.0-42.0) % [place] % (Auto) 13.8 H (2.0-11.0) % Eos % (Auto) 0.9 L (1.0-6.0) % Baso % (Auto) 0.3 (0.0-1.0) % Lymph # (Auto) 1.13 (1.10-4.50) K/mm3 [place] # (Auto) 0.48 (0.10-0.90) K/mm3 Eos # (Auto) 0.03 (0.02-0.50) K/mm3 Baso # (Auto) 0.01 (0.00-0.10) K/mm3 Abs Immat Gran (auto) 0.01 H (0.00-0.00) K/mm3 Absolute Neuts (auto) 1.81 (1.70-7.20) K/mm3 Absolute Nucleated RBC 0.00 (0.00-0.00) K/mm3 Nucleated RBC % 0.0 (0-0.0) % % Immature Plt Fraction 3.6 (1.0-7.0) % Sodium 139 (136-145) mmol/L Potassium 3.0 L (3.5-5.1) mmol/L Chloride 98 (98-108) mmol/L Carbon Dioxide 29 (21-32) mmol/L Anion Gap 12 (4-12) mmol/L BUN 9 (7-18) mg/dL Creatinine 0.83 (0.55-1.02) mg/dL Estim Creat Clear Calc 68 ml/min Estimated GFR > 60 (59 - ) Glucose 120 H (70-99) mg/dL Calculated Osmolality 287 (285-295) mOsm/kg Calcium 9.1 (8.5-10.1) mg/dL Total Bilirubin 0.8 (0.00-1.00) mg/dL AST 54 H (15-37) U/L ALT 37 (14-59) U/L Alkaline Phosphatase 110 (46-116) U/L Total Protein 8.2 (6.4-8.2) g/dL Albumin 3.9 (3.4-5.0) g/dL Lipase 64 (16-77) U/L Urine Color Yellow (Yellow) Urine Appearance Cloudy A (Clear) Urine pH 6.0 (5.0-8.0) Ur Specific [place] 1.020 (1.010-1.020) Urine Protein Trace H (Negative) Urine Glucose (UA) Negative (Negative) Urine Ketones Negative (Negative) Ur Blood (Man) Negative (Negative) Urine Nitrate Negative (Negative) Urine Bilirubin Negative (Negative) Urine Urobilinogen 1.0 (0.2-1.0) mg/dL Leukocyte Esterase Rfl Negative (Negative) KATELYNN/UL Urine RBC 0-2 (0-2) /hpf Urine WBC 0-3 (0-3) /hpf Ur Squamous Epith Cells Moderate H (Few) /hpf Urine Bacteria Trace (None) /hpf Urine Mucus Few H /lpf Ethyl Alcohol < 3 (0-6) mg/dL Critical Care Time Critical Care Time Critical Care Time: No Discharge Plan Discharge Clinical Impression: Abdominal pain, Acute hypokalemia, History of cirrhosis of liver Patient Disposition: Home Condition: Stable Instructions: Abdominal Pain (ED), Chronic Abdominal Pain (DC), Hypokalemia (ED) Additional Instructions: Return if symptoms are worsening , call your family physician /gastroenterologistfor appointment, take ibuprofen as as needed for aches and pain, continue home medications. Patient Language: Faroese Prescriptions: New dicyclomine 20 mg tablet 20 mg PO QID Qty: 20 0RF potassium chloride 20 mEq packet 20 meq PO BID 7 Days Qty: 14 0RF No Action gabapentin 300 mg capsule 400 mg PO TID nabumetone 500 mg PO TID lorazepam [Ativan] 0.5 mg tablet 0.5 mg PO BID PRN (Reason: anxiety) Qty: 20 0RF gabapentin 400 mg capsule sertraline 100 mg tablet 100 mg PO Q24H trazodone 150 mg tablet 150 mg PO DAILY hydroxyzine pamoate 25 mg capsule 25 mg PO DAILY peg 3350-electrolytes [GaviLyte-G] 236-22.74-6.74 -5.86 gram recon soln 20 ml PO DAILY multivitamin with folic acid [Daily-Mira (with folic acid)] 400 mcg tablet 1 tablet PO DAILY Follow-up/Referrals: Deshaun,Ruma Aden MD [Primary Care Provider] -
[2024-08-13] MEDS: ONDANSETRON INJ 4 MG/2 ML VIAL IV PUSH (08:43)
[2024-08-13] MEDS: HYDROmorphone HCL INJ (*CRX) 2 MG/ML VIAL 0.5 MG IV PUSH (08:43)
[2024-08-13] MEDS: SODIUM CHLORIDE 0.9% IV 1,000 ML 999 ML IV CONT (08:44)
[2024-08-13 08:46] LABS: Basophils Absolute Auto 0.01 K/mm3 (0.00-0.10); Basophils Percent Auto 0.3 % (0.0-1.0); Eosinophils Absolute Auto 0.03 K/mm3 (0.02-0.50); Eosinophils Percent Auto 0.9 % (1.0-6.0); Hematocrit 41.3 % (35.0-49.0); Hemoglobin 13.8 g/dL (12.0-15.0); Immature Granulocyte Absolute 0.01 K/mm3 (0.00-0.00); Immature Granulocyte Percent A 0.3 % (0.0-0.0); Immature Platelet Fraction Pct 3.6 % (1.0-7.0); Lymphocytes Absolute Auto 1.13 K/mm3 (1.10-4.50); Lymphocytes Percent Auto 32.6 % (18.0-42.0); Mean Corpuscular HGB Conc 33.4 g/dL (32-36); Mean Corpuscular Hemoglobin 31.9 pg (27.0-31.0); Mean Corpuscular Volume 95.4 fL (78.0-102.0); Mean Platelet Volume 10.3 fl (9.2-11.8); Monocytes Absolute Auto 0.48 K/mm3 (0.10-0.90); Monocytes Percent Auto 13.8 % (2.0-11.0); Neutrophils Absolute Auto 1.81 K/mm3 (1.70-7.20); Neutrophils Percent Auto 52.1 % (50.0-70.0); Platelet Count Result 79 K/mm3 (150-420); Red Blood Count 4.33 M/mm3 (4.20-5.40); Red Cell Distribution Width 13.3 % (11.6-14.4); White Blood Count 3.5 K/mm3 (4.8-10.8)
[2024-08-13 09:03] LABS: Add Urine Microscopic? YES; Bilirubin Urine Negative (Negative); Blood Urine Negative (Negative); Color Urine Yellow (Yellow); Glucose Urine UA Negative (Negative); Ketones Urine Negative (Negative); Leukocyte Esterase Ur Negative LEU/UL (Negative); Nitrate Urine Negative (Negative); Protein Urine Trace (Negative)
[2024-08-13 09:03] LABS: Alanine Aminotransferase 37 U/L (14-59); Albumin Level 3.9 g/dL (3.4-5.0); Alkaline Phosphatase 110 U/L (46-116); Anion Gap 12 mmol/L (4-12); Aspartate Amino Transferase 54 U/L (15-37); Bilirubin,Total 0.8 mg/dL (0.00-1.00); Blood Urea Nitrogen 9 mg/dL (7-18); Calcium 9.1 mg/dL (8.5-10.1); Carbon Dioxide 29 mmol/L (21-32); Chloride 98 mmol/L (98-108); Estimated CRCL calculation 68 ml/min; Estimated Glomerular Filt Rate > 60; Glucose 120 mg/dL (70-99); Lipase 64 U/L (16-77); Osmolality Calculated 287 mOsm/kg (285-295); Sodium 139 mmol/L (136-145); Total Protein 8.2 g/dL (6.4-8.2)
[2024-08-13 09:08] VITALS: BP 159/96; PULSE 78; RESP 20; O2SAT 97
[2024-08-13 09:14] LABS: Appearance Urine Cloudy (Clear); RBC Urine 0-2 /hpf (0-2); Squamous Epithelial Cell Urine Moderate /hpf (Few); WBC Urine 0-3 /hpf (0-3)
[2024-08-13 09:15] LABS: Bacteria Urine Trace /hpf; Mucus Urine Few /lpf
[2024-08-13 09:22] LABS: Ethanol < 3 mg/dL (0-6)
--- OUTSIDE RECORDS SUMMARY | 2024-08-13 09:37 | XMS_ITS | Clinical Summary ---
Author Organization [facility] Address [address] [place] [address] Care Team Providers Care Radar Mechanic Name Role Phone Bladimir Crowder MD Primary Care Provider [phone] Allergies No known active allergies Medications gabapentin [...] 06/09/2024 Assessment & Plan (06/09/2024 3:43 PM HEALTH PROMOTER): Chronic hx. Managed w/ Creon TID. Pt has non-specific abdominal pain in the setting of alcohol withdrawal. Amylase and lipase are normal. Acute pancreatitis is unlikely. Plan: - Continue Creon - Monitor IV fluids - If abdominal pain persists or worsens, consider CT abdomen Cirrhosis 06/09/2024 Assessment & Plan (06/09/2024 3:33 PM HEALTH PROMOTER): Chronic hx. LFTs are normal. PT, PTT, and INR are normal. Currently stable Plan: - Monitor for symptoms Unspecified mood disorder 05/02/2024 Alcohol withdrawal syndrome without complication 04/25/2024 Assessment & Plan (06/09/2024 3:42 PM HEALTH PROMOTER): 49 y/o female w/ alcohol use disorder, [...] Date Type Department Care Team Description 08/11/2024 [facility] Outreach [facility] Off [facility] [address] [place], [place] [phone] Sanaz Thomason 08/11/2024 [facility] Initial Eligibility [facility] [address] [place], [place] [phone] Sanaz Thomason 06/12/2024 Documentation [facility] [address] [place], [place] [phone] Bruno Jefferson 06/11/2024 Documentation [facility] [address] [place], [place] [phone] Latrice Dumont 06/10/2024 Documentation [facility] [address] [place], [place] [phone] Latrice Dumont 06/09/2024 11:27 AM HEALTH PROMOTER - 06/12/2024 1:20 PM HEALTH PROMOTER Hospital Encounter [facility] [address] [place] [address] Jesenia Mckeon MD Okonkwo, Kasiemobi Bernice, MD Richards, Davi Simmons Jr., MD Alcohol withdrawal syndrome without complication (HCC) (Primary Dx); Chronic pancreatitis, unspecified pancreatitis type (HCC) [K86.1] Discharge Disposition: Discharge to not [facility] facility 06/09/2024 8:20 AM HEALTH PROMOTER Lab [address] [phone] 06/09/2024 [facility] Enrollment [facility] [address] [place], [place] [phone] Latrice Dumont 05/28/2024 [facility] Initial Eligibility [facility] [address] [place] [address] Bo Rojas 05/17/2024 [facility] Outreach [facility] [address] [place] [address] Jana Hilario from Last 3 Months Social [...] Comments Blood Pressure 128/74 06/12/2024 11:09 AM HEALTH PROMOTER Pulse 67 06/12/2024 11:09 AM HEALTH PROMOTER Temperature 36.4 C (97.5 F) 06/12/2024 11:09 AM HEALTH PROMOTER Respiratory Rate 15 06/12/2024 11:09 AM HEALTH PROMOTER Oxygen Saturation 97% 06/12/2024 11:09 AM HEALTH PROMOTER Inhaled Oxygen Concentration - - Weight 69.4 kg (153 lb) 06/09/2024 11:47 AM HEALTH PROMOTER Height 165.1 cm (5' 5 ) 06/09/2024 11:47 AM HEALTH PROMOTER Body Mass Index 25.46 06/09/2024 11:47 AM HEALTH PROMOTER Plan of Treatment Upcoming Encounters Date Type Department Care Team (Late st Contact Info) Description 08/15/2024 11:30 AM CDT Hospital Encounter [facility] [address] [place] [address] Jesenia Mckeon MD [address] [place] [address] [address] Health Maintenance Due Date Last Done Comments [...] Diagnosis Comments EGFR Routine 06/12/2024 5:10 AM HEALTH PROMOTER DIFFERENTIAL AUTO Routine 06/12/2024 5:1 0 AM HEALTH PROMOTER CBC WITH AUTO DIFFERENTIAL Routine 06/12/2024 5:10 AM HEALTH PROMOTER BASIC METABOLIC PANEL Routine 06/12/2024 5:10 AM HEALTH PROMOTER CLINICAL PATHOLOGY REPORT Routine 06/11/2024 2:[address] ABDOMEN PELVIS W CONTRAST ED 06/11/2024 1:27 PM HEALTH PROMOTER ANTI-DOUBLE STRANDED DNA ANTIBODIES Routine 06/11/2024 11:59 AM HEALTH PROMOTER TONY QUALITATIVE WITH REFLEX TO TONY QUANTITATIVE Routine 06/11/2024 11:59 AM HEALTH PROMOTER FOLATE Routine 06/11/2024 11:59 AM HEALTH PROMOTER VITAMIN B12 Routine 06/11/2024 11:59 AM HEALTH PROMOTER HIV 1/2 ANTIBODY PLUS P24 ANTIGEN Routine 06/11/2024 11:59 AM HEALTH PROMOTER HEPATITIS PANEL, ACUTE Routine 11:59 AM HEALTH PROMOTER SLIDE REVIEW - PATHOLOGIST Routine 06/11/2024 5:34 AM HEALTH PROMOTER EGFR Routine 06/11/2024 5:34 AM HEALTH PROMOTER DIFFERENTIAL AUTO Routine 06/11/2024 5:3 4 AM HEALTH PROMOTER CBC WITH AUTO DIFFERENTIAL Routine 06/11/2024 5:34 AM HEALTH PROMOTER BASIC METABOLIC PANEL Routine 06/11/2024 5:34 AM HEALTH PROMOTER POCT GLUCOSE DEVICE Routine 06/11/2024 3 :01 AM HEALTH PROMOTER EGFR STAT 06/10/2024 7:50 AM HEALTH PROMOTER DIFFERENTIAL AUTO STAT 06/10/2024 7:5 0 AM HEALTH PROMOTER BASIC METABOLIC PANEL STAT 06/10/2024 7:50 AM HEALTH PROMOTER CBC WITH AUTO DIFFERENTIAL STAT 06/10/2024 7:50 AM HEALTH PROMOTER ETHANOL STAT 06/09/2024 2:55 PM HEALTH PROMOTER APTT STAT 06/09/2024 2:55 PM HEALTH PROMOTER PROTIME-INR STAT 06/09/2024 2:55 PM HEALTH PROMOTER LIPASE STAT 06/09/2024 2:55 PM HEALTH PROMOTER AMYLASE STAT 06/09/2024 2:55 PM HEALTH PROMOTER EGFR STAT 06/09/2024 8:33 AM HEALTH PROMOTER DRUGS OF ABUSE SCREEN, URINE WITHOUT CONFIRMATION STAT 06/09/2024 8:33 AM HEALTH PROMOTER CBC WITHOUT DIFFERENTIAL STAT 06/09/2024 8:33 AM HEALTH PROMOTER COMPREHENSIVE METABOLIC PANEL STAT 06/09/2024 8:33 AM HEALTH PROMOTER from Last 3 Months Results * eGFR (06/12/2024 5:10 AM HEALTH PROMOTER) eGFR >90 >=60 mL/min/1. 73 m2 Comment: [...] last reviewed 2021. Blood 06/12/2024 5:10 AM HEALTH PROMOTER 06/12/2024 5:38 AM HEALTH PROMOTER us Dana Maradiaga MD LAB BLOOD ORDERABLE S Final Result [facility] ([place]) 1 [facility] [place] [address] * (ABNORMAL) Differential, auto (06/12/2024 5:10 AM HEALTH PROMOTER) Neutrophil abs 1.4(L) 1.5 - 6.5 K/cumm Imm gran abs 0.0 0.0 - 0.1 K/cumm [facility] ([place]) Lymphocyte abs 1.0 0.8 - 3.3 K/cumm [facility] ([place]) Monocyte abs 0.3 0.2 - 0.8 K/cumm [facility] ([place]) Eosinophil abs 0.1 0.0 - 0.5 K/cumm [facility] ([place]) Basophil abs 0.0 0.0 - 0.1 K/cumm [facility] ([place]) Neutrophil pct 51.3 % [facility] ([place]) Comment: Interpretive Data Percent cell count reference [...] revised on 2017. Blood 06/12/2024 5:10 AM HEALTH PROMOTER 06/12/2024 5:38 AM HEALTH PROMOTER us Dana Maradiaga MD LAB BLOOD ORDERABLE S Final Result [facility] ([place]) 1 [facility] [place] [address] * (ABNORMAL) CBC with auto differential (06/12/2024 5:10 AM HEALTH PROMOTER) WBC 2.8(L) 3.8 - 9.9 K/cumm Hgb [...] [facility] ([place]) Blood 06/12/2024 5:10 AM HEALTH PROMOTER 06/12/2024 5:38 AM HEALTH PROMOTER Dana Maradiaga MD LAB BLOOD ORDERABLE S Final Result [facility] ([place]) 1 [facility] [place] [address] * (ABNORMAL) Basic metabolic panel (06/12/2024 5:10 AM HEALTH PROMOTER) Sodium 141 135 - 145 mmol/L Potassium, [...] [facility] ([place]) Blood 06/12/2024 5:10 AM HEALTH PROMOTER 06/12/2024 5:38 AM HEALTH PROMOTER Dana Maradiaga MD LAB BLOOD ORDERABLE S Final Result [facility] ([place]) 1 [facility] [place] [address] * Clinical pathology report (06/11/2024 2:24 PM HEALTH PROMOTER) Miscellaneous 06/11/2024 2:2 4 PM HEALTH PROMOTER 06/11/2024 2:24 PM HEALTH PROMOTER Narrative 06/12/2024 8:53 AM HEALTH PROMOTER EPIC results best viewed via link to PDF [facility] Department of Pathology [address] [place] [id number] Final Report Note to Patients: This report [...] the details. Patient Name: LATRICE RITCHIE Address: [address] [place] [address] Gender: F : 1975 (Age: 49) Service: Medical Location: [facility] Hospital #: [id number] Patient Type: [facility] Taken: 06/11/2024 Received: 06/11/2024 Accessioned: 06/11/2024 Physician(s): [...] by the Surgical Pathology Department at [facility] as part of an ongoing chief quality officer program and in compliance with federally mandated [...] characteristics determined by the Surgical Pathology Department [facility]. It has not been cleared or approved by the U. S. Food and Drug Administration. REPORT IMAGES AND SCANNED DOCUMENTS, IF INCLUDED, ONLY VIEWABLE IN PDF VERSION OF REPORTe o Dana Maradiaga MD LAB PATHOLOGY ORDER LOPEZ Final Result * CT Abdomen Pelvis W Contrast (06/11/2024 1:27 PM HEALTH PROMOTER) Anatomical Region Laterality Modality Body N/A Computed Tomogra phy 06/11/2024 1:34 PM HEALTH PROMOTER Narrative 06/11/2024 1:47 PM HEALTH PROMOTER EXAM DESCRIPTION: CT ABDOMEN PELVIS W CONTRAST [...] Eber Galaviz M.D. AG: AG Report ID: [id number] Reading Location: [place] [address] Procedure Note Eber Galaviz MD - 06/11/2024 [...] Eber Galaviz M.D. AG: AG Report ID: [id number] Reading Location: [id number] Dana Maradiaga MD IM CT PROCEDURES F inal Result * (ABNORMAL) TONY ab ql w/rflx to TONY qn (06/11/2024 11:59 AM HEALTH PROMOTER) TONY Positive 1:320 Comment: Interpretive Data Normal [...] last revised on 2019. Testing performed by: [facility], [address] [place] [address]., [id number] TONY, quant 1:320 titer AMIE Pereira ([place]) Comment:Testing performed by : [facility], [address] [place] [address]., [address] TONY, interp Speckled(A) AMIE RENAE ([place]) Comment:Testing performed by : [facility], [address] [place] [address]., [id number] Blood 06/11/2024 11:5 9 AM HEALTH PROMOTER 06/11/2024 2:52 PM HEALTH PROMOTER Dana Maradiaga MD LAB BLOOD ORDERABLE S Final Result [facility] ([place]) 1 [facility] [place] [address] * Anti-double stranded DNA abs (06/11/2024 11:59 AM HEALTH PROMOTER) dsDNA Ab <1.0 <=4.0 IUnits/mL Comment: Interpretive Data Negative: < or = 4 IUnits/mL Indeterminate: 5 - 9 IUnits/mL Positive: > or = 10 IUnits/mL Current interpretive data was last revised on 2016. Testing performed by: [facility], [address] [place] [address], [id number] Blood 06/11/2024 11:5 9 AM HEALTH PROMOTER 06/11/2024 2:52 PM HEALTH PROMOTER Dana Maradiaga MD LAB BLOOD ORDERABLE S Final Result [facility] ([place]) [address] [place] [address] * HIV 1/2 Antibody plus p24 Antigen Blood (06/11/2024 11:59 AM HEALTH PROMOTER) HIV 1/2 ab + p24 ag Nonreactive Nonreactive Comment: Nonreactive for HIV-1 antigen and HIV-1/HIV-2 antibodies. No laboratory evidence of HIV infection. If acute HIV infection is suspected, consider testing for HIV-1 RNA. Testing performed by: [facility], [address] [place] [address]., [id number] Blood 06/11/2024 11:5 9 AM HEALTH PROMOTER 06/11/2024 1:56 PM HEALTH PROMOTER Dana Maradiaga MD LAB MICROBIOLOGY - GENERAL ORDERABLES Final Result [facility] ([place]) [address] [place] [address] * Hepatitis panel, acute Blood (06/11/2024 11:59 AM HEALTH PROMOTER) Hep A IgM Nonreactive Nonreactive Comment: Interpretive Data: If Hep A IgM Ab is reported as Equivocal, a new sample should be drawn in two weeks for testing. Current interpretive data was last revised on 19. Testing performed by: [facility], [address] [place] [address], [place]., [address] Hep B core IgM Nonreactive Nonreactive Selin RENAE ([place]) Comment: Interpretive Data If HepB Core IgM Ab is reported as Equivocal, a new sample should be drawn in two weeks for testing. Current interpretive data was last revised on 19. Testing performed by: [facility], [address] [place] [address]., [address] Hep C Ab Nonreactive Nonreactive [facility] ([place]) Comment: Interpretive Data Nonreactive: Antibodies [...] revised on 2019. Testing performed by: [facility], [address] [place] [address]., [address] HepBsAg Nonreactive Nonreactive [facility] ([place]) Comment:Testing performed by : [facility], [address] [place] [address]., [id number] Blood 06/11/2024 11:5 9 AM HEALTH PROMOTER 06/11/2024 1:56 PM HEALTH PROMOTER Dana Maradiaga MD LAB MICROBIOLOGY - GENERAL ORDERABLES Final Result [facility] ([place]) 1 [facility] [employer] [place] [address] * Folate (06/11/2024 11:59 AM HEALTH PROMOTER) [facility] Folic acid >20.0 >=5.0 ng/mL Comment:Slightly Hemolyzed S pecimen. Results may be affected. Blood 06/11/2024 11:5 9 AM HEALTH PROMOTER 06/11/2024 12:25 PM HEALTH PROMOTER Dana Maradiaga MD LAB BLOOD ORDERABLE S Final Result [facility] ([place]) 1 [facility] [employer] [place] [address] * Vitamin B12 (06/11/2024 11:59 AM HEALTH PROMOTER) Vitamin B12 630 230 - 1,250 pg/mL Blood 06/11/2024 11:5 9 AM HEALTH PROMOTER 06/11/2024 12:25 PM HEALTH PROMOTER Dana Maradiaga MD LAB BLOOD ORDERABLE S Final Result [facility] [place]) 1 [facility] [place] [address] * Slide review - pathologist (06/11/2024 5:34 AM HEALTH PROMOTER) Slide review by Dr Vaughn Diop Comment: CoPath # [id number] Interpretive Data See Clinical Pathology Report under Media section in EPIC. Current Interpretive Data was last revised on 2018. Blood 06/11/2024 5:34 AM HEALTH PROMOTER 06/11/2024 11:19 AM HEALTH PROMOTER Dana Maradiaga MD LAB BLOOD ORDERABLE S Final Result [facility] ([place]) 1 [facility] [place] [address] * eGFR (06/11/2024 5:34 AM HEALTH PROMOTER) eGFR >90 >=60 mL/min/1. 73 m2 Comment: [...] last reviewed 2021. Blood 06/11/2024 5:34 AM HEALTH PROMOTER 06/11/2024 5:59 AM HEALTH PROMOTER Dana Maradiaga MD LAB BLOOD ORDERABLE S Final Result [facility] ([place]) 1 [facility] [place] [address] * (ABNORMAL) Differential, auto (06/11/2024 5:34 AM HEALTH PROMOTER) Neutrophil abs 1.0(L) 1.5 - 6.5 K/cumm Imm gran abs 0.0 0.0 - 0.1 K/cumm [facility] ([place]) Lymphocyte abs 1.1 0.8 - 3.3 K/cumm [facility] ([place]) Monocyte abs 0.4 0.2 - 0.8 K/cumm [facility] ([place]) Eosinophil abs 0.1 0.0 - 0.5 K/cumm [...] revised on 2017. Blood 06/11/2024 5:34 AM HEALTH PROMOTER 06/11/2024 5:57 AM HEALTH PROMOTER us Dana Maradiaga MD LAB BLOOD ORDERABLE S Final Result [facility] ([place]) 1 [facility] [place] [address] * (ABNORMAL) CBC with auto differential (06/11/2024 5:34 AM HEALTH PROMOTER) WBC 2.6(L) 3.8 - 9.9 K/cumm Hgb [...] [facility] ([place]) Blood 06/11/2024 5:34 AM HEALTH PROMOTER 06/11/2024 5:57 AM HEALTH PROMOTER us Dana Maradiaga MD LAB BLOOD ORDERABLE S Final Result [facility] ([place]) 1 [facility] [place] [address] * (ABNORMAL) Basic metabolic panel (06/11/2024 5:34 AM HEALTH PROMOTER) Sodium 140 135 - 145 mmol/L Potassium, [...] [facility] ([place]) Blood 06/11/2024 5:34 AM HEALTH PROMOTER 06/11/2024 5:59 AM HEALTH PROMOTER Dana Maradiaga MD LAB BLOOD ORDERABLE S Final Result [facility] ([place]) 1 [facility] [place] [employer] [place] [address] * POCT glucose (06/11/2024 3:01 AM HEALTH PROMOTER) Glucose, POC 92 70 - 199 mg/dL Blood 06/11/2024 3:01 AM HEALTH PROMOTER 06/11/2024 3:01 AM HEALTH PROMOTER us Dana Maradiaga MD LAB POCT ORDERABLES - DEVICE Final Result Performing Organization Address [facility] Co de Phone Number AMIE RE[facility] ([place]) 1 [facility] [place] [address] * eGFR (06/10/2024 7:50 AM HEALTH PROMOTER) [facility] eGFR >90 >=60 mL/min/1. 73 m2 [...] last reviewed 2021. Blood 06/10/2024 7:50 AM HEALTH PROMOTER 06/10/2024 8:39 AM HEALTH PROMOTER Dana Maradiaga MD LAB BLOOD ORDERABLE S Final Result Performing Organization Address City/[facility]/ZIP Co de Phone Number [facility] ([place]) [address] Department [place] [address] * Differential, auto (06/10/2024 7:50 AM HEALTH PROMOTER) Neutrophil abs 1.5 1.5 - 6.5 K/cumm Imm gran abs 0.0 0.0 - 0.1 K/cumm [facility] ([place]) Lymphocyte abs 1.1 0.8 - 3.3 K/cumm [facility] ([place]) Monocyte abs 0.5 0.2 - 0.8 K/cumm [facility] ([place]) Eosinophil abs 0.1 0.0 - 0.5 K/cumm [facility] ([place]) Basophil abs 0.0 0.0 - 0.1 K/cumm [facility] ([place]) Neutrophil pct 47.5 % [facility] ([place]) Comment: Interpretive Data Percent cell count reference ranges are not reported, since discordance with absolute values may lead to misinterpretation of CBC data. Current Interpretive Data was last revised on 2017. Imm gran pct 0.3 % [facility] ([place]) Comment: Interpretive Data Percent cell count reference ranges are not reported, since discordance with absolute values may lead to misinterpretation of CBC data. Current Interpretive Data was last revised on 2017. Lymphocyte pct 33.4 % [facility] ([place]) Comment: Interpretive Data Percent cell count reference ranges are not reported, since discordance with absolute values may lead to misinterpretation of CBC data. Current Interpretive Data was last revised on 2017. Monocyte pct 16.4 % [facility] ([place]) Comment: Interpretive Data Percent cell count reference ranges are not reported, since discordance with absolute values may lead to misinterpretation of CBC data. Current Interpretive Data was last revised on 2017. Eosinophil pct 1.5 % [facility] ([place]) Comment: Interpretive Data Percent cell count reference ranges are not reported, since discordance with absolute values may lead to misinterpretation of CBC data. Current Interpretive Data was last revised on 2017. Basophil pct 0.9 % [facility] ([place]) Comment: Interpretive Data Percent cell count reference ranges are not reported, since discordance with absolute values may lead to misinterpretation of CBC data. Current Interpretive Data was last revised on 2017. Blood 06/10/2024 7:50 AM HEALTH PROMOTER 06/10/2024 8:39 AM HEALTH PROMOTER Dana Maradiaga MD LAB BLOOD ORDERABLE S Final Result Performing Organization Address City/[facility]/ZIP Co de Phone Number [facility] ([place]) 1 [facility] [employer] [place] [address] * (ABNORMAL) CBC with auto differential (06/10/2024 7:50 AM HEALTH PROMOTER) WBC 3.2(L) 3.8 - 9.9 K/cumm Hgb [...] [facility] ([place]) Blood 06/10/2024 7:50 AM HEALTH PROMOTER 06/10/2024 8:39 AM HEALTH PROMOTER Dana Maradiaga MD LAB BLOOD ORDERABLE S Final Result Performing Organization Address City/[facility]/ZIP Co de Phone Number [facility] ([place]) [address] [facility] [place] [address] * (ABNORMAL) Basic metabolic panel (06/10/2024 7:50 AM HEALTH PROMOTER) Sodium 137 135 - 145 mmol/L Potassium, pl 3.5 3.3 - 4.9 mmol/L [facility] ([place]) Chloride 105 97 - 110 mmol/L [facility] ([place]) CO2 23 22 - 32 mmol/L [facility] ([place]) Anion gap 10 2 - 15 mmol/L [facility] ([place]) BUN 19 6 - 25 mg/dL [facility] ([place]) Creatinine 0.54(L) 0.60 - 1.10 mg/dL [facility] ([place] Glucose 90 70 - 199 mg/dL [facility] ([place]) Comment: Interpretive Data Fasting glucose >/= [...] 2022. Calcium 9.2 8.5 - 10.3 mg/dL [facility] ([place]) Blood 06/10/2024 7:50 AM HEALTH PROMOTER 06/10/2024 8:39 AM HEALTH PROMOTER Dana Maradiaga MD LAB BLOOD ORDERABLE S Final Result [facility] ([place] 1 [facility] [place] [address] * aPTT (06/09/2024 2:55 PM HEALTH PROMOTER) aPTT 32 28 - 38 sec [facility] ([place]) Comment: Interpretive Data Heparin therapeutic range: 66.0 - 100.0 seconds. Range based on correlation with therapeutic heparin activity range of 0.3 - 0.7 Units/mL. Current interpretive data was last revised on 2023. Blood 06/09/2024 2:55 PM HEALTH PROMOTER 06/09/2024 3:01 PM HEALTH PROMOTER Dana Maradiaga MD LAB BLOOD ORDERABLE S Final Result Performing Organization Address City/[facility]/ZIP Co de Phone Number [facility] ([place] 1 [facility] [employer] [place] [address] * Protime-INR (06/09/2024 2:55 PM HEALTH PROMOTER) PT 11.4 9.7 - 13.0 sec [facility] ([place]) INR 1.05 0.90 - 1.20 [facility] ([place]) Comment: Interpretive data Oral anticoagulant therapeutic ranges: Venous thromboembolism prophylaxis or treatment: 2.0-3.0 CARDIOLOGY Standard range: 2.0-3.0 High-intensity range: 2.5-3.5 Refer to indication-specific guidelines for appropriate target ranges for prosthetic heart valve replacement. Current interpretive data was last revised on 2019. Blood 06/09/2024 2:55 PM HEALTH PROMOTER 06/09/2024 3:01 PM HEALTH PROMOTER Dana Maradiaga MD LAB BLOOD ORDERABLE S Final Result Performing Organization Address [facility] Co de Phone Number [facility] ([place] 1 [facility] [employer] [place] [address] * Lipase (06/09/2024 2:55 PM HEALTH PROMOTER) Lipase 92 10 - 99 Units/L Blood 06/09/2024 2:55 PM HEALTH PROMOTER 06/09/2024 3:01 PM HEALTH PROMOTER Dana Maradiaga MD LAB BLOOD ORDERABLE S Final Result Performing Organization Address City/[facility] Co de Phone Number [facility] ([place]) 1 [facility] [place] [address] * Amylase (06/09/2024 2:55 PM HEALTH PROMOTER) Amylase 58 30 - 99 Units/L Blood 06/09/2024 2:55 PM HEALTH PROMOTER 06/09/2024 3:01 PM HEALTH PROMOTER Dana Maradiaga MD LAB BLOOD ORDERABLE S Final Result [facility] ([place]) [address] [place] [address] * Ethanol (06/09/2024 2:55 PM HEALTH PROMOTER) Pathologist [facility] Ethanol <10 <=10 mg/dL Comment: Interpretive Data Legal limit of intoxication > or = 80 mg/dL Levels > or = 400 mg/dL are potentially TOXIC. Current interpretive data was last revised on 2018. Blood 06/09/2024 2:55 PM HEALTH PROMOTER 06/09/2024 3:01 PM HEALTH PROMOTER Dana Maradiaga MD LAB BLOOD ORDERABLE S Final Result [facility] ([place]) 1 [facility] [employer] [place] [address] * eGFR (06/09/2024 8:33 AM HEALTH PROMOTER) eGFR >90 >=60 mL/min/1. 73 m2 Comment: [...] Inclusion of Race in Diagnosing Kidney Disease, ASHLEYSDinesh 2020). The CKD-EPI equation should not be used for patients with unstable renal function and has not been validated in children and those over 70. Current interpretive data was last reviewed 2021. Blood 06/09/2024 8:33 AM HEALTH PROMOTER 06/09/2024 8:36 AM HEALTH PROMOTER us Jesenia Mckeon MD LAB BLOOD ORDERABLES Final Re sult [facility] ([place]) 1 [facility] [employer] [place], [place] [id number] * (ABNORMAL) Drugs of Abuse Screen, Urine without Confirmation (06/09/2024 8:33 AM HEALTH PROMOTER) Amphetamine, ur Screen Positive, presumptive (A) CutOff [...] reviewed 2022. Urine Creatinine 373 mg/dL [facility] ([place]) Comment: Interpretive Data Urine Creatinine: < 10 mg/dL is extremely dilute = or > 10 but < 20 mg/dL is dilute = or > 20 mg/dL is normal Current Interpretive Data was last revised on 2017. Urine 06/09/2024 8:33 AM HEALTH PROMOTER 06/09/2024 9:03 AM HEALTH PROMOTER Narrative [facility] ([place]) - 06/09/2024 9:31 AM HEALTH PROMOTER Drug of Abuse screening is performed by immunoassay for medical purposes only. This is not to be used for Pain Management purposes. us Jesenia Mckeon MD LAB URINE ORDERABLES Final Re sult [facility] ([place]) [facility] [facility] Department [place] [address] * (ABNORMAL) CBC without differential (06/09/2024 8:33 AM HEALTH PROMOTER) WBC 5.2 3.8 - 9.9 K/cumm Hgb 14.2 11.9 - 15.5 g/dL [facility] ([facility]) Hct 42.0 35.6 - 45.5 % [facility] ([facility] Plt 146(L) 150 - 400 K/cumm [facility] ([facility]) MPV 9.5 9.1 - 12.3 fL [facility] RBC 4.50 3.90 - 5.20 M/cumm [facility] MCV 93.3 81.3 - 96.4 fL [facility] MCH 31.6 27.1 - 33.3 pg [facility] MCHC 33.8 32.3 - 35.7 g/dL [facility] RDW CV 14.8 11.1 - 14.9 % [facility] RDW SD 50.9(H) 35.7 - 48.1 fL [facility] NRBC abs 0.00 0.00 - 0.01 K/cumm [facility] Blood 06/09/2024 8:33 AM HEALTH PROMOTER 06/09/2024 8:36 AM HEALTH PROMOTER us Jesenia Mckeon MD LAB BLOOD ORDERABLES Final Re sult [facility] ([facility]) 1 [facility] Department [place] [address] * (ABNORMAL) Comprehensive metabolic panel (06/09/2024 8:33 AM HEALTH PROMOTER) Sodium 140 135 - 145 mmol/L Potassium, [...] [facility] Blood 06/09/2024 8:33 AM HEALTH PROMOTER 06/09/2024 8:36 AM HEALTH PROMOTER us Jesenia Mckeon MD LAB BLOOD ORDERABLES Final Re sult [facility] [place] [address] from Last 3 Months Insurance [employer] [facility] Advance Directives For more information, please contact: [phone] * Full Code (Latest Code Status on File) Date Activated Date Inactivated Comments 06/09/2024 2:35 PM 06/12/2024 5:25 PM * Full Code Date Activated Date Inactivated Comments 04/25/2024 5:41 PM 05/07/2024 7:44 PM Care Teams Radar Mechanic Relationship Specialty Start Date End Date Bladimir Crowder MD [address] [place] [id number] PCP - General Family Medicine 04/25/24
--- OUTSIDE RECORDS SUMMARY | 2024-08-13 09:37 | XMS_ITS | Clinical Summary ---
Author Organization [facility] Address [facility] [place] [address] Care Team Providers Care Loader Magazine Grinder Name Role Phone Lelia Lemos MD Primary Care Provider [phone]- [phone] Allergies No known active allergies Medications gabapentin (NEURONTIN) 300 MG capsule Take 400 mg by mouth 3 (three) times daily. 11/03/2023 Active Active Problems Problem Noted Date Diagnosed Date Alcoholic pancreatitis (HHS/HCC) 01/13/2023 Pancreatitis (HHS/HCC) 01/11/2023 Encounters Date Type Department Care Team Description 07/07/2024 9:48 PM CDT - 07/07/2024 11:59 PM CDT Hospital Encounter [facility] [address] [facility] [place] [address] Verna Raymundo MD Discharge Disposition: Home or Self Care (Routine Discharge) 07/07/2024 Travel 05/29/2024 Transcribe Orders [address] [place] [address] Verna Raymundo MD from Last 3 Months [...] place to sleep or slept in a penitentiary (including now)? Yes 01/11/2023 Comments No Sex and Gender Information Value Date Recorded Sex Assigned at Female 05/25/2024 11:14 AM NATURAL SCIENCES MANAGER Legal Sex Female 2:39 PM CDT Gender Identity Not on file Sexual Orientation Not on file Last Filed Vital Signs Vital Sign Reading Time Taken Comments Blood Pressure 139/79 03/18/2024 4:25 PM NATURAL SCIENCES MANAGER Pulse 75 03/18/2024 4:25 PM NATURAL SCIENCES MANAGER Temperature 36.4 C (97.5 F) 03/18/2024 3:16 PM NATURAL SCIENCES MANAGER Respiratory Rate 18 03/18/2024 4:25 PM NATURAL SCIENCES MANAGER Oxygen Saturation 98% 03/18/2024 4:25 PM NATURAL SCIENCES MANAGER Inhaled Oxygen Concentration - - Weight 68 kg (150 lb) 03/18/2024 3:16 PM NATURAL SCIENCES MANAGER Height 162.6 cm (5' 4 ) 03/18/2024 3:16 PM NATURAL SCIENCES MANAGER Body Mass Index 25.75 03/18/2024 3:16 PM NATURAL SCIENCES MANAGER Plan of Treatment Health Maintenance Due Date [...] BIRGIT LUCIAN DIGI Routine 03/29/2024 10:02 AM NATURAL SCIENCES MANAGER Visit for screening mammogram from Last 3 Months or Most Recently Relevant to Health Maintenance Results * Diagnostic PSG (73973, 12404) (07/07/2024 9:48 PM CDT) 07/07/2024 9:48 PM CDT Narrative ESCRIPTION - 07/10/2024 12:32 PM CDT Patient Name: LATRICE RITCHIE Date of : 1975 Account: [id number] Facility: [facility] Location: [facility] Date of Service: 07/07/2024 Sleep Study PROCEDURE: Sleep study plus CPAP titration. ORDERED BY: Gene Raymundo MD. [facility] INDICATION: To assess for sleep apnea. A 49-year-old female, body weight 153 pounds, height of 5 feet 4 inches, BMI of 26, has snoring, hypersomnia, ESS 13/24. METHOD USED: [place] [facility] method. SLEEP SUMMARY: Patient was monitored [...] mask with close followup including downloads and [id number] evaluation. 2. General recommendation to treat sleep apnea, including assessment to upper airways, and thyroid function. Safety in terms of driving and working around machineries till sleep apnea treated, and hypersomnia resolved Education about risks and benefits of treating sleep apnea, and close follow up. Avoid sedatives and hypnotics Clinical correlation is required. Keiko Raymundo MD [facility] Diplomate, [place] Board of sleep Medicine #[id number] /NATALIA A copy of this report has been sent to: LELIA LEMOS MD([employer]) Procedure Note Verna Raymundo MD - 07/10/2024 Patient Name: LATRICE RITCHIE Date of : 1975 Account: [id number] Facility: [facility] Location: [facility] Date of Service: 07/07/2024 Sleep Study PROCEDURE: Sleep study plus CPAP titration. ORDERED BY: Gene Raymundo MD. [facility] INDICATION: To assess for sleep apnea. A 49-year-old female, body weight 153 pounds, height of 5 feet 4 inches, BMI of 26, has snoring, hypersomnia, ESS 13/24. METHOD USED: [place] polysomnography method. SLEEP SUMMARY: Patient was monitored [...] mask with close followup including downloads and [id number] evaluation. 2. General recommendation to treat sleep apnea, including assessment toupper airways, and thyroid function. Safety in terms of driving and working around machineries till sleep apneatreated, and hypersomnia resolved Education about risks and benefits of treating sleep apnea, and closefollow up. Avoid sedatives and hypnotics Clinical correlation is required. Keiko Raymundo MD FCCP Diplomate, [place] Board of sleep Medicine #[id number] /NATALIA A copy of this report has been sent to: LELIA LEMOS MD([employer]) [facility] Nilo Raymundo MD [facility]ENTER ORDERABLE S Final Result ESCRIPTION * MG SCREENING W BIRGIT LUCIAN DIGI (03/29/2024 10:02 AM NATURAL SCIENCES MANAGER) Anatomical Region Laterality Modality Breast Bilateral Mammography 03/29/2024 11:5 4 AM NATURAL SCIENCES MANAGER Impressions 03/29/2024 11:55 AM NATURAL SCIENCES MANAGER IMPRESSION: No mammographic evidence of malignancy. Recommendation: 1: Routine Screening Bilateral in 1 Year Assessment: ACR BI-RADS 2 - BENIGN FINDING(S) Ordered By: BLADIMIR LATHAM Interpreted By: Varun Quevedo MD, 03/29/2024 11:54 AM Narrative 03/29/2024 11:55 AM NATURAL SCIENCES MANAGER [address] [place] [address] Examination: Digital screening mammogram with CAD. Clinical [...] 7:19 PM 01/14/2023 10:44 PM Care Teams Loader Magazine Grinder Relationship Specialty Start Date End Date Lelia Lemos MD [address] [place] [phone] PCP - General FAMILY PRACTICE 03/18/24
--- OUTSIDE RECORDS SUMMARY | 2024-08-13 09:37 | XMS_ITS | Referral Summary ---
Author Organization [facility] Address [address] [place] [address] Care Team Providers Care Circuit Recorder Name Role Phone Bladimir Crowder MD Primary Care Provider [phone] Encounters Date Type Department Care Team Description 08/11/2024 [facility] Outreach [facility] [address] [place], [place] [phone] Sanaz Thomason 08/11/2024 [facility] Initial Eligibility [facility] 1 [place], [place] [phone] Sanaz Thomason 06/12/2024 Documentation [facility] 1 [place], [place] [phone] Bruno Jefferson 06/09/2024 11:27 AM MACHINIST CLASS B - 06/12/2024 1:20 PM MACHINIST CLASS B Hospital Encounter [facility] 1 [place] [address] Jesenia Mckeon MD Okonkwo, Kasiemobi Bernice, MD Richards, John Albert Jr., MD Alcohol withdrawal syndrome without complication (HCC) (Primary Dx); Chronic pancreatitis, unspecified pancreatitis type (HCC) [K86.1] Discharge Disposition: Discharge to not [facility] facility 06/11/2024 Documentation [facility] 1 [place] [phone] Latrice Dumont 06/10/2024 Documentation [facility] 1 [place], [place] [phone] Latrice Dumont 06/09/2024 [facility] Enrollment [facility] 1 [place] [phone] Dumont Latrice Aden 06/09/2024 8:20 AM MACHINIST CLASS B Lab [facility] [address] [place] [address] 05/28/2024 [facility] Initial Eligibility [facility] 1 [place], [place] [phone] Bo Rojas 05/17/2024 [facility] Outreach [facility] 1 [place], [place] [phone] Jana Hilario from Last 3 Months Allergies [...] 06/09/2024 Assessment & Plan (06/09/2024 3:43 PM MACHINIST CLASS B): Chronic hx. Managed w/ Creon TID. Pt has non-specific abdominal pain in the setting of alcohol withdrawal. Amylase and lipase are normal. Acute pancreatitis is unlikely. Plan: - Continue Creon - Monitor IV fluids - If abdominal pain persists or worsens, consider CT abdomen Cirrhosis 06/09/2024 Assessment & Plan (06/09/2024 3:33 PM MACHINIST CLASS B): Chronic hx. LFTs are normal. PT, PTT, and INR are normal. Currently stable Plan: - Monitor for symptoms Unspecified mood disorder 05/02/2024 Alcohol withdrawal syndrome without complication 04/25/2024 Assessment & Plan (06/09/2024 3:42 PM MACHINIST CLASS B): 49 y/o female w/ alcohol use disorder, [...] Comments Blood Pressure 128/74 06/12/2024 11:09 AM MACHINIST CLASS B Pulse 67 06/12/2024 11:09 AM MACHINIST CLASS B Temperature 36.4 C (97.5 F) 06/12/2024 11:09 AM MACHINIST CLASS B Respiratory Rate 15 06/12/2024 11:09 AM MACHINIST CLASS B Oxygen Saturation 97% 06/12/2024 11:09 AM MACHINIST CLASS B Inhaled Oxygen Concentration - - Weight 69.4 kg (153 lb) 06/09/2024 11:47 AM MACHINIST CLASS B Height 165.1 cm (5' 5 ) 06/09/2024 11:47 AM MACHINIST CLASS B Body Mass Index 25.46 06/09/2024 11:47 AM MACHINIST CLASS B Plan of Treatment Upcoming Encounters Date Type Department Care Team (Late st Contact Info) Description 08/15/2024 11:30 AM CDT Hospital Encounter [facility] 1 [place] [address] Jesenia Mckeon MD [address] [address] Procedures Procedure Name Priority Date/Time Associated Diagnosis Comments EGFR Routine 06/12/2024 5:10 AM MACHINIST CLASS B DIFFERENTIAL AUTO Routine 06/12/2024 5:1 0 AM MACHINIST CLASS B CBC WITH AUTO DIFFERENTIAL Routine 06/12/2024 5:10 AM MACHINIST CLASS B BASIC METABOLIC PANEL Routine 06/12/2024 5:10 AM MACHINIST CLASS B CLINICAL PATHOLOGY REPORT Routine 06/11/2024 2:[address] ABDOMEN PELVIS W CONTRAST ED 06/11/2024 1:27 PM MACHINIST CLASS B ANTI-DOUBLE STRANDED DNA ANTIBODIES Routine 06/11/2024 11:59 AM MACHINIST CLASS B TONY QUALITATIVE WITH REFLEX TO TONY QUANTITATIVE Routine 06/11/2024 11:59 AM MACHINIST CLASS B FOLATE Routine 06/11/2024 11:59 AM MACHINIST CLASS B VITAMIN B12 Routine 06/11/2024 11:59 AM MACHINIST CLASS B HIV 1/2 ANTIBODY PLUS P24 ANTIGEN Routine 06/11/2024 11:59 AM MACHINIST CLASS B HEPATITIS PANEL, ACUTE Routine 11:59 AM MACHINIST CLASS B SLIDE REVIEW - PATHOLOGIST Routine 06/11/2024 5:34 AM MACHINIST CLASS B EGFR Routine 06/11/2024 5:34 AM MACHINIST CLASS B DIFFERENTIAL AUTO Routine 06/11/2024 5:3 4 AM MACHINIST CLASS B CBC WITH AUTO DIFFERENTIAL Routine 06/11/2024 5:34 AM MACHINIST CLASS B BASIC METABOLIC PANEL Routine 06/11/2024 5:34 AM MACHINIST CLASS B POCT GLUCOSE DEVICE Routine 06/11/2024 3 :01 AM MACHINIST CLASS B EGFR STAT 06/10/2024 7:50 AM MACHINIST CLASS B DIFFERENTIAL AUTO STAT 06/10/2024 7:5 0 AM MACHINIST CLASS B BASIC METABOLIC PANEL STAT 06/10/2024 7:50 AM MACHINIST CLASS B CBC WITH AUTO DIFFERENTIAL STAT 06/10/2024 7:50 AM MACHINIST CLASS B ETHANOL STAT 06/09/2024 2:55 PM MACHINIST CLASS B APTT STAT 06/09/2024 2:55 PM MACHINIST CLASS B PROTIME-INR STAT 06/09/2024 2:55 PM MACHINIST CLASS B LIPASE STAT 06/09/2024 2:55 PM MACHINIST CLASS B AMYLASE STAT 06/09/2024 2:55 PM MACHINIST CLASS B EGFR STAT 06/09/2024 8:33 AM MACHINIST CLASS B DRUGS OF ABUSE SCREEN, URINE WITHOUT CONFIRMATION STAT 06/09/2024 8:33 AM MACHINIST CLASS B CBC WITHOUT DIFFERENTIAL STAT 06/09/2024 8:33 AM MACHINIST CLASS B COMPREHENSIVE METABOLIC PANEL STAT 06/09/2024 8:33 AM MACHINIST CLASS B from Last 3 Months Results * eGFR (06/12/2024 5:10 AM MACHINIST CLASS B) eGFR >90 >=60 mL/min/1. 73 m2 Comment: [...] last reviewed 2021. Blood 06/12/2024 5:10 AM MACHINIST CLASS B 06/12/2024 5:38 AM MACHINIST CLASS B us Dana Maradiaga MD LAB BLOOD ORDERABLE S Final Result [facility] ([place]) 1 [facility] [place] [address] * (ABNORMAL) Differential, auto (06/12/2024 5:10 AM MACHINIST CLASS B) Neutrophil abs 1.4(L) 1.5 - 6.5 K/cumm [...] revised on 2017. Blood 06/12/2024 5:10 AM MACHINIST CLASS B 06/12/2024 5:38 AM MACHINIST CLASS B Dana Maradiaga MD LAB BLOOD ORDERABLE S Final Result [facility] ([place]) 1 [facility] [place] [address] * (ABNORMAL) CBC with auto differential (06/12/2024 5:10 AM MACHINIST CLASS B) WBC 2.8(L) 3.8 - 9.9 K/cumm Hgb [...] [facility] ([place]) Blood 06/12/2024 5:10 AM MACHINIST CLASS B 06/12/2024 5:38 AM MACHINIST CLASS B Dana Maradiaga MD LAB BLOOD ORDERABLE S Final Result [facility] ([place]) 1 [facility] [place] [address] * (ABNORMAL) Basic metabolic panel (06/12/2024 5:10 AM MACHINIST CLASS B) Sodium 141 135 - 145 mmol/L Potassium, pl 3.7 3.3 - 4.9 mmol/L [facility] ([place]) Chloride 107 97 - 110 mmol/L [facility] ([place]) CO2 21(L) 22 - 32 mmol/L [facility] ([place]) Anion gap 13 2 - 15 mmol/L [facility] ([place]) BUN 15 6 - 25 mg/dL [facility] ([place]) Creatinine 0.61 0.60 - 1.10 mg/dL [facility] ([place]) Glucose 109 70 - 199 mg/dL [facility] ([place]) Comment: Interpretive Data Fasting glucose >/= 126 [...] 2022. Calcium 9.0 8.5 - 10.3 mg/dL [facility] ([place]) Blood 06/12/2024 5:10 AM MACHINIST CLASS B 06/12/2024 5:38 AM MACHINIST CLASS B Dana Maradiaga MD LAB BLOOD ORDERABLE S Final Result [facility] ([place]) 1 [facility] [place] [address] * Clinical pathology report (06/11/2024 2:24 PM MACHINIST CLASS B) Miscellaneous 06/11/2024 2:2 4 PM MACHINIST CLASS B 06/11/2024 2:24 PM MACHINIST CLASS B Narrative 06/12/2024 8:53 AM MACHINIST CLASS B EPIC results best viewed via link to PDF [facility] Department of Pathology [address] [place] [address] Final Report Note to Patients: This report [...] details. Patient Name: LATRICE RITCHIE Address: [address] [place] [address] Gender: F : 1975 (Age: 49) Service: Medical Location: [facility] Hospital #: [id number] Patient Type: [facility] Taken: 06/11/2024 Received: 06/11/2024 Accessioned: 06/11/2024 [...] determined by the Surgical Pathology Department at as part of an ongoing air quality consultant program and in compliance with [...] characteristics determined by the Surgical Pathology Department [facility]. It has not been cleared or approved by the U. S. Food and Drug Administration. REPORT IMAGES AND SCANNED DOCUMENTS, IF INCLUDED, ONLY VIEWABLE IN PDF VERSION OF REPORTe o [facility] Korina Maradiaga MD LAB PATHOLOGY ORDER LOPEZ Final Result * CT Abdomen Pelvis W Contrast (06/11/2024 1:27 PM MACHINIST CLASS B) Anatomical Region Laterality Modality Body N/A Computed Tomogra phy 06/11/2024 1:34 PM MACHINIST CLASS B Narrative 06/11/2024 1:47 PM MACHINIST CLASS B EXAM DESCRIPTION: CT ABDOMEN PELVIS W CONTRAST [...] Galaviz M.D. AG: MARIA LUISA Report ID: [id number] Reading Location: [id number] Procedure Note Eber Galaviz MD - 06/11/2024 [...] Eber Galaviz M.D. AG: AG Report ID: [id number] Reading Location: [place] [address] Lesleemtkeisha Maradiaga MD IM CT PROCEDURES F inal Result * (ABNORMAL) TONY ab ql w/rflx to TONY qn (06/11/2024 11:59 AM MACHINIST CLASS B) TONY Positive 1:320 Comment: Interpretive Data Normal [...] last revised on 2019. Testing performed by: [facility], [address] [place]., [address] TONY, quant 1:320 titer [facility] ([place]) Comment:Testing performed by : [facility], [address] [place]., [address] TONY, interp Speckled(A) [facility] ([place]) Comment:Testing performed by : [facility], [address] [place]., [address] Blood 06/11/2024 11:5 9 AM MACHINIST CLASS B 06/11/2024 2:52 PM MACHINIST CLASS B Dana Maradiaga MD LAB BLOOD ORDERABLE S Final Result Performing Organization Address [facility] de Phone Number [facility] ([place]) [address] [place] [address] [place] [address] * Anti-double stranded DNA abs (06/11/2024 11:59 AM MACHINIST CLASS B) [facility] dsDNA Ab <1.0 <=4.0 IUnits/mL Comment: Interpretive Data Negative: < or = 4 IUnits/mL Indeterminate: 5 - 9 IUnits/mL Positive: > or = 10 IUnits/mL Current interpretive data was last revised on 2016. Testing performed by: [facility], 1 [facility], [address] Blood 06/11/2024 11:5 9 AM MACHINIST CLASS B 06/11/2024 2:52 PM MACHINIST CLASS B Dana Maradiaga MD LAB BLOOD ORDERABLE S Final Result Performing Organization Address City/[facility]/ZIP Co de Phone Number [facility] ([place]) [address] [place] [address] [place] [address] * HIV 1/2 Antibody plus p24 Antigen Blood (06/11/2024 11:59 AM MACHINIST CLASS B) [facility] HIV 1/2 ab + p24 ag Nonreactive Nonreactive Comment: Nonreactive for HIV-1 antigen and HIV-1/HIV-2 antibodies. No laboratory evidence of HIV infection. If acute HIV infection is suspected, consider testing for HIV-1 RNA. Testing performed by: [address] [address] Blood 06/11/2024 11:5 9 AM MACHINIST CLASS B 06/11/2024 1:56 PM MACHINIST CLASS B Dana Maradiaga MD LAB MICROBIOLOGY - GENERAL ORDERABLES Final Result [facility] ([place]) 1 [facility] Department [place] [address] * Hepatitis panel, acute Blood (06/11/2024 11:59 AM MACHINIST CLASS B) Hep A IgM Nonreactive Nonreactive Comment: Interpretive Data: If Hep A IgM Ab is reported as Equivocal, a new sample should be drawn in two weeks for testing. Current interpretive data was last revised on 19. Testing performed by: [address] [address] Hep B core IgM Nonreactive Nonreactive C [facility] RE[facility] ([place]) Comment: Interpretive Data If HepB Core IgM Ab is reported as Equivocal, a new sample should be drawn in two weeks for testing. Current interpretive data was last revised on 19. Testing performed by: [address] [address] Hep C Ab Nonreactive Nonreactive [facility] [...] last revised on 2019. Testing performed by: [address] [address] HepBsAg Nonreactive Nonreactive [facility] ([place]) Comment:Testing performed by : , [address] [place] [address], [place]., [address] Blood 06/11/2024 11:5 9 AM MACHINIST CLASS B 06/11/2024 1:56 PM MACHINIST CLASS B Dana Maradiaga MD LAB MICROBIOLOGY - GENERAL ORDERABLES Final Result [facility] ([place]) 1 [facility] [place] [address] * Folate (06/11/2024 11:59 AM MACHINIST CLASS B) Folic acid >20.0 >=5.0 ng/mL Comment:Slightly Hemolyzed S pecimen. Results may be affected. Blood 06/11/2024 11:5 9 AM MACHINIST CLASS B 06/11/2024 12:25 PM MACHINIST CLASS B Dana Maradiaga MD LAB BLOOD ORDERABLE S Final Result Performing Organization Address [facility]/ZIP Co de Phone Number [facility] ([place]) 1 [facility] [place] [address] * Vitamin B12 (06/11/2024 11:59 AM MACHINIST CLASS B) Vitamin B12 630 230 - 1,250 pg/mL Blood 06/11/2024 11:5 9 AM MACHINIST CLASS B 06/11/2024 12:25 PM MACHINIST CLASS B Dana Maradiaga MD LAB BLOOD ORDERABLE S Final Result Performing Organization Address City/[facility]/ZIP Co de Phone Number [facility] ([place]) 1 [facility] [place] [address] * Slide review - pathologist (06/11/2024 5:34 AM MACHINIST CLASS B) Slide review by Dr Vaguhn Diop Comment: CoPath # [id number] Interpretive Data See Clinical Pathology Report under Media section in EPIC. Current Interpretive Data was last revised on 2018. Blood 06/11/2024 5:34 AM MACHINIST CLASS B 06/11/2024 11:19 AM MACHINIST CLASS B us Dana Maradiaga MD LAB BLOOD ORDERABLE S Final Result [facility] ([place]) 1 [facility] [place] [address] * eGFR (06/11/2024 5:34 AM MACHINIST CLASS B) eGFR >90 >=60 mL/min/1. 73 m2 Comment: [...] last reviewed 2021. Blood 06/11/2024 5:34 AM MACHINIST CLASS B 06/11/2024 5:59 AM MACHINIST CLASS B us Dana Maradiaga MD LAB BLOOD ORDERABLE S Final Result [facility] ([place]) 1 [facility] [place] [address] * (ABNORMAL) Differential, auto (06/11/2024 5:34 AM MACHINIST CLASS B) Neutrophil abs 1.0(L) 1.5 - 6.5 K/cumm [...] revised on 2017. Blood 06/11/2024 5:34 AM MACHINIST CLASS B 06/11/2024 5:57 AM MACHINIST CLASS B Dana Maradiaga MD LAB BLOOD ORDERABLE S Final Result [facility] ([place]) 1 [facility] [place] [address] * (ABNORMAL) CBC with auto differential (06/11/2024 5:34 AM MACHINIST CLASS B) [facility] WBC 2.6(L) 3.8 - 9.9 K/cumm Hgb [...] [facility] ([place]) Blood 06/11/2024 5:34 AM MACHINIST CLASS B 06/11/2024 5:57 AM MACHINIST CLASS B Dana Maradiaga MD LAB BLOOD ORDERABLE S Final Result [facility] ([place]) 1 [facility] [place] [address] * (ABNORMAL) Basic metabolic panel (06/11/2024 5:34 AM MACHINIST CLASS B) Sodium 140 135 - 145 mmol/L Potassium, pl 4.1 3.3 - 4.9 mmol/L [facility] ([place]) Chloride 108 97 - 110 mmol/L [facility] ([place]) CO2 23 22 - 32 mmol/L [facility] ([place]) Anion gap 9 2 - 15 mmol/L [facility] ([place]) BUN 15 6 - 25 mg/dL [facility] ([place]) Creatinine 0.54(L) 0.60 - 1.10 mg/dL [facility] ([place]) Glucose 85 70 - 199 mg/dL [facility] ([place]) Comment: Interpretive Data Fasting glucose [...] 2022. Calcium 9.1 8.5 - 10.3 mg/dL [facility] ([place]) Blood 06/11/2024 5:34 AM MACHINIST CLASS B 06/11/2024 5:59 AM MACHINIST CLASS B Dana Maradiaga MD LAB BLOOD ORDERABLE S Final Result [facility] ([place]) 1 [facility] [place] [address] * POCT glucose (06/11/2024 3:01 AM MACHINIST CLASS B) Glucose, POC 92 70 - 199 mg/dL Blood 06/11/2024 3:01 AM MACHINIST CLASS B 06/11/2024 3:01 AM MACHINIST CLASS B Dana Maradiaga MD LAB POCT ORDERABLES - DEVICE Final Result Performing Organization Address City/[facility] Co de Phone Number [facility] ([place]) 1 [facility] [place] [address] * eGFR (06/10/2024 7:50 AM MACHINIST CLASS B) eGFR >90 >=60 mL/min/1. 73 m2 Comment: [...] last reviewed 2021. Blood 06/10/2024 7:50 AM MACHINIST CLASS B 06/10/2024 8:39 AM MACHINIST CLASS B us Dana Maradiaga MD LAB BLOOD ORDERABLE S Final Result AMIE BrookeO[facility]) 1 [facility] [place] [address] * Differential, auto (06/10/2024 7:50 AM MACHINIST CLASS B) Neutrophil abs 1.5 1.5 - 6.5 K/cumm [...] revised on 2017. Blood 06/10/2024 7:50 AM MACHINIST CLASS B 06/10/2024 8:39 AM MACHINIST CLASS B us Dana Maradiaga MD LAB BLOOD ORDERABLE S Final Result [facility] ([place]) 1 [facility] [place] [address] * (ABNORMAL) CBC with auto differential (06/10/2024 7:50 AM MACHINIST CLASS B) WBC 3.2(L) 3.8 - 9.9 K/cumm Hgb [...] [facility] ([place]) Blood 06/10/2024 7:50 AM MACHINIST CLASS B 06/10/2024 8:39 AM MACHINIST CLASS B us Dana Maradiaga MD LAB BLOOD ORDERABLE S Final Result [facility] 1 [facility] [place] [address] * (ABNORMAL) Basic metabolic panel (06/10/2024 7:50 AM MACHINIST CLASS B) Sodium 137 135 - 145 mmol/L Potassium, pl 3.5 3.3 - 4.9 mmol/L [facility] ([place]) Chloride 105 97 - 110 mmol/L [facility] ([place]) CO2 23 22 - 32 mmol/L [facility] ([place]) Anion gap 10 2 - 15 mmol/L [facility] ([place]) BUN 19 6 - 25 mg/dL [facility] ([place]) Creatinine 0.54(L) 0.60 - 1.10 mg/dL [facility] ([place]) Glucose 90 70 - 199 mg/dL [facility] ([place]) Comment: Interpretive Data Fasting glucose >/= 126 [...] Calcium 9.2 8.5 - 10.3 mg/dL [facility] ([place]) Blood 06/10/2024 7:50 AM MACHINIST CLASS B 06/10/2024 8:39 AM MACHINIST CLASS B Dana Maradiaga MD LAB BLOOD ORDERABLE S Final Result Performing Organization Address City/[facility]/ZIP Co de Phone Number [facility] ([place]) 1 [facility] [place] [address] * aPTT (06/09/2024 2:55 PM MACHINIST CLASS B) aPTT 32 28 - 38 sec [facility] ([place]) Comment: Interpretive Data Heparin therapeutic range: 66.0 - 100.0 seconds. Range based on correlation with therapeutic heparin activity range of 0.3 - 0.7 Units/mL. Current interpretive data was last revised on 2023. Blood 06/09/2024 2:55 PM MACHINIST CLASS B 06/09/2024 3:01 PM MACHINIST CLASS B Dana Maradiaga MD LAB BLOOD ORDERABLE S Final Result [facility] ([place]) 1 [facility] [place] [address] * Protime-INR (06/09/2024 2:55 PM MACHINIST CLASS B) PT 11.4 9.7 - 13.0 sec [facility] ([place]) INR 1.05 0.90 - 1.20 [facility] ([place]) Comment: Interpretive data Oral anticoagulant therapeutic ranges: Venous thromboembolism prophylaxis or treatment: 2.0-3.0 CARDIOLOGY Standard range: 2.0-3.0 High-intensity range: 2.5-3.5 Refer to indication-specific guidelines for appropriate target ranges for prosthetic heart valve replacement. Current interpretive data was last revised on 2019. Blood 06/09/2024 2:55 PM MACHINIST CLASS B 06/09/2024 3:01 PM MACHINIST CLASS B Dana Maradiaga MD LAB BLOOD ORDERABLE S Final Result Performing Organization Address City/[facility]/ZIP Co de Phone Number [facility] ([place]) 1 [facility] [place] [address] * Lipase (06/09/2024 2:55 PM MACHINIST CLASS B) Lipase 92 10 - 99 Units/L Blood 06/09/2024 2:55 PM MACHINIST CLASS B 06/09/2024 3:01 PM MACHINIST CLASS B Dana Maradiaga MD LAB BLOOD ORDERABLE S Final Result Performing Organization Address City/[facility]/ZIP Co de Phone Number [facility]IE [facility] ([place]) 1 [facility] [place] [address] * Amylase (06/09/2024 2:55 PM MACHINIST CLASS B) Amylase 58 30 - 99 Units/L Blood 06/09/2024 2:55 PM MACHINIST CLASS B 06/09/2024 3:01 PM MACHINIST CLASS B Daan Maradiaga MD LAB BLOOD ORDERABLE S Final Result [facility] ([place]) 1 [facility] [place] [address] * Ethanol (06/09/2024 2:55 PM MACHINIST CLASS B) Ethanol <10 <=10 mg/dL Comment: Interpretive Data Legal limit of intoxication > or = 80 mg/dL Levels > or = 400 mg/dL are potentially TOXIC. Current interpretive data was last revised on 2018. Blood 06/09/2024 2:55 PM MACHINIST CLASS B 06/09/2024 3:01 PM MACHINIST CLASS B us Dana Maradiaga MD LAB BLOOD ORDERABLE S Final Result [facility] ([place]) 1 [facility] [place] [address] * eGFR (06/09/2024 8:33 AM MACHINIST CLASS B) eGFR >90 >=60 mL/min/1. 73 m2 Comment: [...] last reviewed 2021. Blood 06/09/2024 8:33 AM MACHINIST CLASS B 06/09/2024 8:36 AM MACHINIST CLASS B us Jesenia Mckeon MD LAB BLOOD ORDERABLES Final Re sult [facility] ([place]) 1 [facility] [place] [address] * (ABNORMAL) Drugs of Abuse Screen, Urine without Confirmation (06/09/2024 8:33 AM MACHINIST CLASS B) Amphetamine, ur Screen Positive, presumptive (A) CutOff [...] Phencyclidine, ur Not Detected CutOff 25 ng/mL [facility] ([place]) Comment: Interpretive Data - Phencyclidine: [...] revised on 2017. Urine 06/09/2024 8:33 AM MACHINIST CLASS B 06/09/2024 9:03 AM MACHINIST CLASS B Narrative [facility] ([place]) - 06/09/2024 9:31 AM MACHINIST CLASS B Drug of Abuse screening is performed by immunoassay for medical purposes only. This is not to be used for Pain Management purposes. us Jesenia Mckeon MD LAB URINE ORDERABLES Final Re sult Performing Organization Address City/[facility]/ZIP Co de Phone Number [facility] ([place]) 1 [facility] [place] [address] * (ABNORMAL) CBC without differential (06/09/2024 8:33 AM MACHINIST CLASS B) WBC 5.2 3.8 - 9.9 K/cumm Hgb [...] [facility] ([place]) Blood 06/09/2024 8:33 AM MACHINIST CLASS B 06/09/2024 8:36 AM MACHINIST CLASS B us Jesenia Mckeon MD LAB BLOOD ORDERABLES Final Re sult Performing Organization Address City/[facility]/ZIP Co de Phone Number [facility] ([place]) 1 [facility] [place] [address] * (ABNORMAL) Comprehensive metabolic panel (06/09/2024 8:33 AM MACHINIST CLASS B) Sodium 140 135 - 145 mmol/L Potassium, [...] [facility] ([place]) Blood 06/09/2024 8:33 AM MACHINIST CLASS B 06/09/2024 8:36 AM MACHINIST CLASS B us Jesenia Mckeon MD LAB BLOOD ORDERABLES Final Re sult [facility] ([place]) [address] [place] [address] from Last 3 Months Insurance [employer] [place] Advance Directives For more information, please contact: [phone] * Full Code (Latest Code Status on File) Date Activated Date Inactivated Comments 06/09/2024 2:35 PM 06/12/2024 5:25 PM * Full Code Date Activated Date Inactivated Comments 04/25/2024 5:41 PM 05/07/2024 7:44 PM Care Teams Circuit Recorder Relationship Specialty Start Date End Date Bladimir Crowder MD [address] [place] [id number] PCP - General Family Medicine 04/25/24
[2024-08-13 10:12] VITALS: BP 154/78; PULSE 95; RESP 20; O2SAT 95
[2024-08-13] MEDS: POTASSIUM CHLORIDE 20 MEQ PACKET (FOR LIQUID) PO (10:23)
== END 2024-08-13 10:43 | disposition home or self-care (01) ==
PROVIDERS: Emergency Provider Emergency Medicine; PCP Family Medicine
DX: R10.10 Upper abdominal pain, unspecified (principal); E87.6 Hypokalemia; K74.60 Unspecified cirrhosis of liver; F10.20 Alcohol dependence, uncomplicated; Y90.9 Presence of alcohol in blood, level not specified; I10 Essential (primary) hypertension; Z79.899 Other long term (current) drug therapy
CPT/HCPCS: 36415; 74177; 80053; 81001; 82077; 83690; 85025; 85055; 96361; 96374; 96375; 99284; A9270; J1171; J2405; J7030; Q9967

== ENCOUNTER 2024-09-13 14:43 | Observation (INO) | payer OTHER, SELFPAY ==
--- NOTE | ~2024-09-13 | CT_ITS ---
EXAMINATION: CT abdomen pelvis w con DATE: 09/13/2024 16:22 INDICATION: Abdominal pain TECHNIQUE: Computed tomography (CT) of the abdomen and pelvis was performed with 100 cc Omnipaque 350 intravenous contrast. The dose-length product was 462.14 mGy-cm. Automated exposure control and iter ative reconstruction technique were employed. COMPARISON: CT dated 08/13/2024 FINDINGS: Lung bases are unremarkable. Heart size normal. There is cirrhosis of the liver. There are gallstones. No focal hepatic mass is identified. The spleen, pancreas, adrenal glands and left kidney are unremarkable. There is focal cortical thinning/scarring of the right kidney. There is small subc entimeter cyst. No significant vascular abnormality. No lymphadenopathy. Bladder wall is mildly thick ened, possibly due to underdistention or cystitis. Clinically correlate. Nonobstructive bowel gas pat tern. No significant vascular abnormality. No lymphadenopathy. Normal appendix. IMPRESSION: 1. No acute abdominal abnormality. 2: Cirrhosis of the liver. 3: Cholelithiasis. 4: Mild bladder wall thickening which may be due to underdistention, although cystitis not excluded. Clinically correlate. Reviewed, dictated and finalized at location A. IMPRESSION: 1. No acute abdominal abnormality. 2: Cirrhosis of the liver. 3: Cholelithiasis. 4: Mild bladder wall thickening which may be due to underdistention, although c ystitis not excluded. Clinically correlate.
[2024-09-13 14:43] VITALS: BP 143/94; PULSE 68; RESP 18; TEMP 36.6; O2SAT 98
--- NOTE | 2024-09-13 14:55 | ECG_ITS ---
Test Date: 2024-09-13 15:06:52 Measurements Intervals [place] Rate: 65 P: 47 PA: 189 QRS: 77 QRSD: 84 T: 63 QT: 420 QTc: 438 Interpretive Statements SINUS RHYTHM BASELINE WANDER- I, II, III NORMAL ECG Compared to ECG 01/09/2024 03:45:55 Possible ischemia no longer present Electronically Signed On 09-13-2024 16:00:52 CDT by Edgar Nobles D.O.
[2024-09-13] MEDS: SODIUM CHLORIDE 0.9% IV 1,000 ML 999 ML IV CONT (15:15)
[2024-09-13] MEDS: MORPHINE SULFATE (*CRX) 4 MG/ML INJ IV PUSH (15:16)
[2024-09-13 15:24] LABS: Basophils Absolute Auto 0.02 K/mm3 (0.00-0.10); Basophils Percent Auto 0.5 % (0.0-1.0); Eosinophils Absolute Auto 0.06 K/mm3 (0.02-0.50); Eosinophils Percent Auto 1.4 % (1.0-6.0); Hemoglobin 13.6 g/dL (12.0-15.0); Immature Granulocyte Absolute 0.01 K/mm3 (0.00-0.00); Immature Granulocyte Percent A 0.2 % (0.0-0.0); Immature Platelet Fraction Pct 2.6 % (1.0-7.0); Lymphocytes Absolute Auto 1.21 K/mm3 (1.10-4.50); Lymphocytes Percent Auto 28.9 % (18.0-42.0); Mean Corpuscular HGB Conc 33.2 g/dL (32-36); Mean Corpuscular Hemoglobin 31.5 pg (27.0-31.0); Mean Corpuscular Volume 94.9 fL (78.0-102.0); Mean Platelet Volume 10.4 fl (9.2-11.8); Monocytes Absolute Auto 0.54 K/mm3 (0.10-0.90); Monocytes Percent Auto 12.9 % (2.0-11.0); Neutrophils Absolute Auto 2.34 K/mm3 (1.70-7.20); Neutrophils Percent Auto 56.1 % (50.0-70.0); Platelet Count Result 93 K/mm3 (150-420); Red Blood Count 4.32 M/mm3 (4.20-5.40); Red Cell Distribution Width 13.5 % (11.6-14.4); White Blood Count 4.2 K/mm3 (4.8-10.8)
--- OUTSIDE RECORDS SUMMARY | 2024-09-13 15:25 | XMS_ITS ---
Author Organization [facility] Address [address] [place] [address] Care Team Providers Care Big Data Engineer Name Role Phone Holli Keith Primary Care Provider Ana Zafar Unavailable [phone] REASON FOR VISIT discharged from [facility] Social History Sex Assigned At : Social History Observation Description Sex Assigned At Female Encounters Encounter Location Date Provider [facility] [address] [address] 06/14/2024 Ana Zafar Plan Of Treatment No Information Progress Notes * Latrice RITCHIEDOB:1975 ([age] yo F)Acc No.[id number]:06/14/2024 UNLOCKED PROGRESS NOTE Patient: Latrice DOWLING Provider: SANIA Sommers :1975 A ge:49 Y S ex:Female Date:06/14/2024 Phone: Address:[address] [place], [place] [id number] Pcp:Holli Keith Subjective: * Chief Complaints: * 1 . discharged from [facility]. * Medical History: Objective: * Vitals: Assessment: Plan: * Treatment: * * Electronic signature of Nohelia Zafar on 09/13/2024 at 03:24 PM CDT Sign off status: Pending * Provider: SANIA Sommers Date: 06/14/2024 Generated for Printi ng/Faxing/eTransmitting on: 0 09/13/2024 03:24 PM CDT
--- OUTSIDE RECORDS SUMMARY | 2024-09-13 15:25 | XMS_ITS | Patient Health Record ---
Author Organization [facility] Address [address] [place] [address] Care Team Providers Care Sales Agent [employer] Insurance Name Role Phone SagarHolli Primary Care Provider Chanel Baires Unavailable [phone] Ana Zafar Unavailable [phone] Lesly Valenzuela Unavailable [phone] Lien Higuera Unavailable [phone] Allergies No Known Allergies Results Component Value [...] % External for 11 Days Not-Taking Creon [id number] UNIT Oral for 31 Days Not-Taking Ondansetron [...] with others, in a hotel, in a [place], living outside on the street, on a [...] phone, visiting friends or family, going to amish or club meetings) 1 or 2 times a week How stressed are you? Stress is when someone feels tense, nervous, anxious, or can\t sleep at night because their mind is troubled Very much In the past year have you sp ent more than 2 nights in a row in a fpc, correction, fci center, or juvenile correctional facility? No Are [...] W/U Status Risk Notes Problem Bipolar disorder (29123338) Bipolar disorder (F31.9) Active confirmed Self reported diagnosis. Scheduled for full psychiatric eval. Problem Alcohol use disorder (7928192629) Alcohol use disorder (F10.99) Active confirmed Problem Overweight (704056082) Overweight (BMI 25.0-29.9) (E66.3) Active confirmed Vital Signs Heart Rate 62 /min 06/13/2024 Temperature 97.9 degrees Fahrenheit 06/13/2024 Respiratory Rate 16 /min 06/13/2024 Oximetry 99 % 06/13/2024 Blood pressure diastolic 72 mm Hg 06/13/2024 Height 63.25 in 06/13/2024 Blood pressure systolic 132 mm Hg 06/13/2024 Weight 157.4 lbs 06/13/2024 BMI 27.66 kg/m2 06/13/2024 Encounters Encounter Location Date Provider Diagnosis [facility] [address] [place] [address] 06/12/2024 Lien Higuera ETOH abuse F10.10 and Bipolar disorder F31.9 [facility] [address] [facility] [place] [address] 06/12/2024 Holli Keith Adult general medical exam Z00.00 ; Nutritional counseling Z71.3 and ETOH abuse F10.10 [facility] [address] [place] [address] 06/13/2024 Chanel Baires Alcohol use disorder F10.99 ; Overweight (BMI 25.0-29.9) E66.3 and Nutritional counseling Z71.[address] [address] 06/13/2024 Lesly Valenzuela Bipolar disorder F31.9 and Alcohol use disorder F10.[address] [place] [address] 06/14/2024 Ana Zafar Assessments Encounter Date Diagnosis [...] 06/12/2024 Other Continue treatment as recommended by [facility] staff. Encouraged patient to obtain routine medical care with patient's own primary care provider or establish as a patient at [facility] if no current primary care provider. 06/13/2024 Other Discussed medication side effects, adverse effects, risks, benefits, as well as interactions. Encouraged non-use of alcohol. Has Vivitrol alert bracelet, necklace and wallet card. Recommended participation in recovery groups/counseling services. Agrees to contact office with questions or concerns. Patient may self-administe r their own medications or may self-administe r their own oral medications per [facility] Protocol. Plan Of Treatment No Information Insurance Providers Payer Name Payer Address Payer Phone Subscriber Number Group Number Insured Name Patient Relationship to Insured Coverage Start Date Coverage End Date [employer] [address] [place] [phone] [id number] Latrice Valencia Self - patient is the insured 3 [employer] [address] [address] [place] [address] [id number] Latrice Valencia Self - patient is the insured 5 [employer] Better [facility] [address] [place] [id number] Latrice Valencia Self - patient is the insured 3 Medications Administered Medication Instructions Date of Administration Dosage Notes Vivitrol 06/13/2024 380 mg Sima Pete 06/13/2024 03:34:51 PM AIRPORT SCREENER > Intramuscular injection administered into the R gluteal area. Patient tolerated the injection well. 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
--- OUTSIDE RECORDS SUMMARY | 2024-09-13 15:25 | XMS_ITS | Clinical Summary ---
Author Organization [facility] Address [address] [place] [address] Care Team Providers Care Security Controls Assessor Name Role Phone Bladimir Crowder MD Primary Care Provider [phone] Allergies No known active allergies Medications gabapentin [...] (0.5 mg total) by mouth daily Active hydrOXYzine (ATARAX) 25 mg tablet Take 1 tablet (25 mg total) by mouth nightly 30 tablet 5 09/17/19 25 Active polyethylene glycol (MIRALAX) 17 gram packetIndications: constipation Take 1 packet (17 g total) by mouth daily 30 packet 5 Active Active Problems Problem Noted Date Diagnosed Date Alcohol use disorder 08/15/2024 Generalized anxiety disorder 08/15/2024 History of posttraumatic stress disorder (PTSD) 08/15/2024 Acute on chronic pancreatitis 08/15/2024 Neutropenia 06/11/2024 Leukopenia 06/11/2024 Chronic pancreatitis 06/09/2024 Assessment & Plan (06/09/2024 3:43 PM MAIL ORDER SORTER): Chronic hx. Managed w/ Creon TID. Pt has non-specific abdominal pain in the setting of alcohol withdrawal. Amylase and lipase are normal. Acute pancreatitis is unlikely. Plan: - Continue Creon - Monitor IV fluids - If abdominal pain persists or worsens, consider CT abdomen Cirrhosis 06/09/2024 Assessment & Plan (06/09/2024 3:33 PM MAIL ORDER SORTER): Chronic hx. LFTs are normal. PT, PTT, and INR are normal. Currently stable Plan: - Monitor for symptoms Unspecified mood disorder 05/02/2024 Alcohol withdrawal syndrome without complication 04/25/2024 Assessment & Plan (06/09/2024 3:42 PM MAIL ORDER SORTER): 49 y/o female w/ alcohol use disorder, [...] Encounters Date Type Department Care Team Description 08/17/2024 Documentation [facility] [address] [place], [place] [phone] Sanaz Thomason 08/16/2024 Documentation [facility] [address] [place], [place] [phone] Latrice Dumont 08/15/2024 2:00 PM CDT - 08/17/2024 2:25 PM CDT Hospital Encounter [facility] [address] [place] [id number] Jesenia Mckeon MD Saeed, Salman, MD Alcohol use disorder [F10.90] (Primary Dx) Discharge Disposition: Discharge to home or self care 08/15/2024 11:00 AM CDT Lab [address] [phone] 08/15/2024 [facility] Enrollment [facility] [address] [place], [place] [phone] Bo Rojas 08/11/2024 [facility] Outreach [facility] [address] [place], [place] [phone] Sanaz Thomason 08/11/2024 [facility] Initial Eligibility [facility] [address] [place] [address] Sanaz Thomason from Last 3 Months Social History Tobacco [...] making you feel afraid or unsafe? Yes 08/15/2024 Comments No Sex and Gender Information Value Date Recorded Sex Assigned at Not on file Legal Sex Female 12:17 PM CDT Gender Identity Not on file Sexual Orientation Not on file Obstetrics History Last Filed Vital Signs Vital Sign Reading Time Taken Comments Blood Pressure 142/97 08/17/2024 7:49 AM CDT Pulse 57 08/17/2024 7:49 AM CDT Temperature 36 C (96.8 F) 08/17/2024 7:49 AM CDT Respiratory Rate 18 08/17/2024 7:49 AM CDT Oxygen Saturation 98% 08/17/2024 7:49 AM CDT Inhaled Oxygen Concentration - - Weight 72 kg (158 lb 11.7 oz) 08/15/2024 3:43 PM CDT Height 165.1 cm (5' 5) 08/15/2024 3:43 PM CDT Body Mass Index 26.41 08/15/2024 3:43 PM CDT Plan of Treatment Health Maintenance Due Date [...] Priority Date/Time Associated Diagnosis Comments EGFR Routine 08/17/2024 4:36 AM CDT PHOSPHORUS Routine 08/17/2024 4:36 AM CDT MAGNESIUM Routine 08/17/2024 4:36 AM CDT COMPREHENSIVE METABOLIC PANEL Routine 08/17/2024 4:36 AM CDT CBC WITHOUT DIFFERENTIAL Routine 08/17/2024 4:36 AM CDT PHOSPHORUS Routine 08/16/2024 12:06 PM CDT MAGNESIUM Routine 08/16/2024 12:06 PM CDT EGFR Routine 08/16/2024 5:39 AM CDT COMPREHENSIVE METABOLIC PANEL Routine 08/16/2024 5:39 AM CDT CBC WITHOUT DIFFERENTIAL Routine 08/16/2024 5:[address] ABDOMEN PELVIS W CONTRAST IP Routine 08/15/2024 6:12 PM CDT AMYLASE Routine 08/15/2024 4:17 PM CDT LIPASE Routine 08/15/2024 4:17 PM CDT ETHANOL Routine 08/15/2024 4:17 PM CDT EGFR STAT 08/15/2024 11:05 AM CDT DRUGS OF ABUSE SCREEN, URINE WITHOUT CONFIRMATION STAT 08/15/2024 11:05 AM CDT CBC WITHOUT DIFFERENTIAL STAT 08/15/2024 11:05 AM CDT COMPREHENSIVE METABOLIC PANEL STAT 08/15/2024 11:05 AM CDT HEPATITIS PANEL, ACUTE Routine 06/11/2024 11:59 AM MAIL ORDER SORTER from Last 3 Months or Most Recently Relevant to Health Maintenance Results * eGFR (08/17/2024 4:36 AM CDT) eGFR >90 >=60 mL/min/1. 73 m2 Comment: [...] interpretive data was last reviewed 2021. Blood 08/17/2024 4:36 AM CDT 08/17/2024 5:07 AM CDT us Alexis Barbour MD LAB BLOOD ORDERABLES Final Resul t [facility] ([place]) 1 [facility] Department [place] [address] * (ABNORMAL) CBC without differential (08/17/2024 4:36 AM CDT) WBC 2.96(L) 3.80 - 9.90 K/cumm Hgb 12.7 11.9 - 15.5 g/dL [facility] ([place]) Hct 37.1 35.6 - 45.5 % [facility] ([place]) Plt 61(L) 150 - 400 K/cumm [facility] ([place]) MPV 11.4 9.1 - 12.3 fL [facility] ([place]) RBC 3.85(L) 3.90 - 5.20 M/cumm [facility] ([place]) MCV 96.4 81.3 - 96.4 fL [facility] ([place]) MCH 33.0 27.1 - 33.3 pg [facility] ([place]) MCHC 34.2 32.3 - 35.7 g/dL [facility] ([place]) RDW CV 13.3 11.1 - 14.9 % [facility] ([place]) RDW SD 47.5 35.7 - 48.1 fL [facility] ([place]) NRBC abs 0.00 0.00 - 0.01 K/cumm [facility] ([place]) Blood 08/17/2024 4:36 AM CDT 08/17/2024 5:06 AM CDT us Alexis Barbour MD LAB BLOOD ORDERABLES Final Resul t Performing Organization Address City/[facility]/ZIP Co de Phone Number [facility] ([place]) [address] [place] [address] * (ABNORMAL) Phosphorus (08/17/2024 4:36 AM CDT) Phosphorus, pl 4.7(H) 2.3 - 4.5 mg/dL Blood 08/17/2024 4:36 AM CDT 08/17/2024 5:07 AM CDT Alexis Barbour MD LAB BLOOD ORDERABLES Final Resul t Performing Organization Address [facility] Co de Phone Number [facility] ([place]) [address] [place] [address] * Magnesium (08/17/2024 4:36 AM CDT) Pathologist [facility] Magnesium 1.7 1.4 - 2.5 mg/dL Blood 08/17/2024 4:36 AM CDT 08/17/2024 5:07 AM CDT us Alexis Barbour MD LAB BLOOD ORDERABLES Final Resul t Performing Organization Address [facility] Co de Phone Number [facility] ([place]) 1 [place] [address] * (ABNORMAL) Comprehensive metabolic panel (08/17/2024 4:36 AM CDT) Sodium 142 135 - 145 mmol/L Potassium, pl 3.8 3.3 - 4.9 mmol/L [facility] ([place]) Chloride 105 97 - 110 mmol/L [facility] ([place]) CO2 24 22 - 32 mmol/L [facility] ([place]) Anion gap 13 2 - 15 mmol/L [facility] ([place]) BUN 15 6 - 25 mg/dL [facility] ([place]) Creatinine 0.51(L) 0.60 - 1.10 mg/dL [facility] ([place]) Glucose 108 70 - 199 mg/dL [facility] ([place] [...] interpretive data was last revised 2022. Calcium 8.6 8.5 - 10.3 mg/dL [facility] ([place]) Bilirubin, total 0.4 0.1 - 1.2 mg/dL [facility] ([place]) Protein, pl 6.3(L) 6.5 - 8.5 g/dL [facility] ([place]) Albumin 3.4(L) 3.5 - 5.0 g/dL [facility] ([place]) Alk phos 68 40 - 130 Units/L [facility] ([place]) ALT 17 7 - 45 Units/L [facility] AST 29 10 - 45 Units/L [facility] ([place]) Blood 08/17/2024 4:36 AM CDT 08/17/2024 5:07 AM CDT Alexis Barbour MD LAB BLOOD ORDERABLES Final Resul t [facility] ([place] 1 [facility] Department [place] [address] * Phosphorus (08/16/2024 12:06 PM CDT) Phosphorus, pl 3.5 2.3 - 4.5 mg/dL Blood 08/16/2024 12:0 6 PM CDT 08/16/2024 12:29 PM CDT Alexis Barbour MD LAB BLOOD ORDERABLES Final Resul t Performing Organization Address City/[facility]/ZIP Co de Phone Number [facility] ([place]) 1 [facility] [place] [address] * Magnesium (08/16/2024 12:06 PM CDT) Magnesium 1.4 1.4 - 2.5 mg/dL Blood 08/16/2024 12:0 6 PM CDT 08/16/2024 12:29 PM CDT Alexis Barbour MD LAB BLOOD ORDERABLES Final Resul t Performing Organization Address [facility] Co de Phone Number [facility] [place]) [address] [place] [address] * eGFR (08/16/2024 5:39 AM CDT) eGFR >90 >=60 mL/min/1. 73 m2 Comment: [...] interpretive data was last reviewed 2021. Blood 08/16/2024 5:39 AM CDT 08/16/2024 6:01 AM CDT us Alexis Barbour MD LAB BLOOD ORDERABLES Final Resul t Performing Organization Address City/[facility]/ZIP Co de Phone Number [facility] ([place] 1 [facility] Department [place] [address] * (ABNORMAL) CBC without differential (08/16/2024 5:39 AM CDT) [facility] WBC 2.35(L) 3.80 - 9.90 K/cumm Hgb 13.3 11.9 - 15.5 g/dL [facility] ([place]) Hct 38.7 35.6 - 45.5 % [facility] ([place]) Plt 54(L) 150 - 400 K/cumm [facility] ([place]) MPV 11.6 9.1 - 12.3 fL [facility] ([place]) RBC 4.05 3.90 - 5.20 M/cumm [facility] ([place]) MCV 95.6 81.3 - 96.4 fL [facility] ([place]) MCH 32.8 27.1 - 33.3 pg [facility] ([place]) MCHC 34.4 32.3 - 35.7 g/dL [facility] ([place]) RDW CV 13.3 11.1 - 14.9 % [facility] ([place]) RDW SD 47.1 35.7 - 48.1 fL [facility] ([place]) NRBC abs 0.00 0.00 - 0.01 K/cumm [facility] ([place]) Blood 08/16/2024 5:39 AM CDT 08/16/2024 6:01 AM CDT us Alexis Barbour MD LAB BLOOD ORDERABLES Final Resul t [facility] ([place]) 1 [facility] Department [place] [address] * (ABNORMAL) Comprehensive metabolic panel (08/16/2024 5:39 AM CDT) [facility] Sodium 144 135 - 145 mmol/L Potassium, pl 3.5 3.3 - 4.9 mmol/L [facility] ([place]) Chloride 107 97 - 110 mmol/L [facility]) CO2 26 22 - 32 mmol/L [facility] ([place]) Anion gap 11 2 - 15 mmol/L [facility] ([place]) BUN 14 6 - 25 mg/dL [facility] ([place]) Creatinine 0.56(L) 0.60 - 1.10 mg/dL [facility] ([place]) Glucose 105 70 - 199 mg/dL [facility] ([place]) [...] interpretive data was last revised 2022. Calcium 8.8 8.5 - 10.3 mg/dL [facility] ([place]) Bilirubin, total 0.4 0.1 - 1.2 mg/dL [facility] ([place]) Protein, pl 6.2(L) 6.5 - 8.5 g/dL [facility] ([place]) Albumin 3.3(L) 3.5 - 5.0 g/dL [facility] ([place]) Alk phos 78 40 - 130 Units/L [facility] ([place]) ALT 18 7 - 45 Units/L [facility] ([place]) AST 30 10 - 45 Units/L [facility] ([place]) Blood 08/16/2024 5:39 AM CDT 08/16/2024 6:01 AM CDT us Alexis Barbour MD LAB BLOOD ORDERABLES Final Resul t [facility] ([place]) 1 [facility] Department [place] [address] * CT Abdomen Pelvis W Contrast (08/15/2024 6:12 PM CDT) Anatomical Region Laterality Modality Body N/A Computed Tomogra phy 08/15/2024 8:45 PM CDT Narrative 08/15/2024 8:48 PM CDT EXAM DESCRIPTION: CT ABDOMEN PELVIS W CONTRAST REASON FOR STUDY: abdominal pain Abdominal pain today hx of cirrhosis and pancreatitis TECHNIQUE: CT [...] IODINE/ML INTRAVENOUS SYRINGE injected via intravenous COMPARISON: 06/11/2024 FINDINGS: LOWER CHEST: Minimal scattered lung base atelectasis. Heart size normal. No effusion. LIVER/BILIARY: Advanced cirrhosis. No discrete lesion is seen. Biliary tree normal in caliber. GALLBLADDER: Contracted around stones. SPLEEN: Normal. PANCREAS: Mild atrophy. ADRENAL GLANDS: Normal. KIDNEYS/URINARY TRACT: Areas of scarring in the right kidney. Ureters and bladder appear normal. GI: Stomach and small bowel appear normal. Colon and appendix unremarkable. OTHER ABDOMINAL/PELVIS: Major vascular structures are grossly patent and normal in caliber. No enlarged lymph node or free fluid. Hysterectomy. MSK: [id number] disc disease and facet arthropathy. BODY WALL: Unremarkable. IMPRESSION: No acute abnormality identified. Advanced cirrhosis and other chronic findings as above. THIS IS AN ELECTRONICALLY VERIFIED FINAL REPORT 08/15/2024 8:48 PM - Electronically signed by Chang Wynn M.D. AR: FELIPE Report ID: [id number] Reading Location: [id number] Procedure Note Chang Wynn MD - 08/15/2024 EXAM DESCRIPTION: CT ABDOMEN PELVIS W CONTRAST REASON FOR STUDY: abdominal pain Abdominal pain today hx of cirrhosis and pancreatitis TECHNIQUE: CT [...] MG IODINE/ML INTRAVENOUSSYRINGE injected via intravenous COMPARISON: 06/11/2024 FINDINGS: LOWER CHEST: Minimal scattered lung base atelectasis. Heart sizenormal. No effusion. LIVER/BILIARY: Advanced cirrhosis. No discrete lesion is seen.Biliary tree normal in caliber. GALLBLADDER: Contracted around stones. SPLEEN: Normal. PANCREAS: Mild atrophy. ADRENAL GLANDS: Normal. KIDNEYS/URINARY TRACT: Areas of scarring in the right kidney. Uretersand bladder appear normal. GI: Stomach and small bowel appear normal. Colon and appendixunremarkable. OTHER ABDOMINAL/PELVIS: Major vascular structures are grossly patent and normal in caliber. No enlarged lymph node or free fluid. Hysterectomy. MSK: Jgor-qy-[id number] disc disease and facet arthropathy. BODY WALL: Unremarkable. IMPRESSION: No acute abnormality identified. Advanced cirrhosis and other chronic findings as above. THIS IS AN ELECTRONICALLY VERIFIED FINAL REPORT 08/15/2024 8:48 PM - Electronically signed by Chang Wynn M.D. AR: FELIPE Report ID: [id number] Reading Location: [place] [address] Alexis Barbour MD IMG CT PROCEDURES Final Result * (ABNORMAL) Lipase (08/15/2024 4:17 PM CDT) Lipase 109(H) 10 - 99 Units/L Blood 08/15/2024 4:17 PM CDT 08/15/2024 4:19 PM CDT Alexis Barbour MD LAB BLOOD ORDERABLES Final Resul t Performing Organization Address City/State/[facility] Co de Phone Number [facility] [place]) 9 [facility] Department of Laboratories [place], [place] [phone] * Amylase (08/15/2024 4:17 PM CDT) Amylase 68 30 - 99 Units/L Blood 08/15/2024 4:17 PM CDT 08/15/2024 4:19 PM CDT us Alexis Barbour MD LAB BLOOD ORDERABLES Final Resul t Performing Organization Address City/[facility] Co de Phone Number [facility] [place]) 1 [facility] [place] [address] * Ethanol (08/15/2024 4:17 PM CDT) Ethanol <10 <=10 mg/dL Comment: Interpretive Data Legal limit of intoxication > or = 80 mg/dL Levels > or = 400 mg/dL are potentially TOXIC. Current interpretive data was last revised on 2018. Blood 08/15/2024 4:17 PM CDT 08/15/2024 4:20 PM CDT Alexis Barbour MD LAB BLOOD ORDERABLES Final Resul t Performing Organization Address [facility] Co de Phone Number [facility] [place]) 1 [facility] [place] [address] * eGFR (08/15/2024 11:05 AM CDT) eGFR >90 >=60 mL/min/1. 73 m2 Comment: [...] interpretive data was last reviewed 2021. Blood 08/15/2024 11:0 5 AM CDT 08/15/2024 11:37 AM CDT us Jesenia Mckeon MD LAB BLOOD ORDERABLES Final Re sult [facility] ([place]) 1 [facility] Department [place] [address] * (ABNORMAL) Drugs of Abuse Screen, Urine without Confirmation (08/15/2024 11:05 AM CDT) [facility] Amphetamine, ur Not Detected CutOff 500ng/mL Comment: Interpretive Data - Amphetamines: [...] Data was last reviewed 2022. Benzodiazepines, ur Not Detected CutOff 100ng/mL [facility] [...] Data was last reviewed 2022. Urine Creatinine 76 mg/dL [facility] ([place]) Comment: Interpretive Data Urine Creatinine: < 10 mg/dL is extremely dilute = or > 10 but < 20 mg/dL is dilute = or > 20 mg/dL is normal Current Interpretive Data was last revised on 2017. Urine 08/15/2024 11:0 5 AM CDT 08/15/2024 11:58 AM CDT Narrative [facility] ([place]) - 08/15/2024 12:13 PM CDT Drug of Abuse screening is performed by immunoassay for medical purposes only. This is not to be used for Pain Management purposes. Jesenia Mckeon MD LAB URINE ORDERABLES Final Re sult [facility] ([place]) 1 [facility] Department [place] [address] * (ABNORMAL) CBC without differential (08/15/2024 11:05 AM CDT) WBC 3.59(L) 3.80 - 9.90 K/cumm Hgb 12.9 11.9 - 15.5 g/dL [facility] ([place]) Hct 38.0 35.6 - 45.5 % [facility] ([place]) Plt 68(L) 150 - 400 K/cumm [facility] ([place]) Comment:consistent with prev ious result No clot detected in sample. MPV 10.9 9.1 - 12.3 fL [facility] ([place]) RBC 3.92 3.90 - 5.20 M/cumm [facility] ([place]) MCV 96.9(H) 81.3 - 96.4 fL [facility] ([place]) MCH 32.9 27.1 - 33.3 pg [facility] ([place]) MCHC 33.9 32.3 - 35.7 g/dL [facility] ([place]) RDW CV 13.4 11.1 - 14.9 % [facility] ([place]) RDW SD 47.8 35.7 - 48.1 fL [facility] ([place]) NRBC abs 0.00 0.00 - 0.01 K/cumm [facility] ([place]) Blood 08/15/2024 11:0 5 AM CDT 08/15/2024 11:37 AM CDT us Jesenia Mckeon MD LAB BLOOD ORDERABLES Final Re sult [facility] ([place] 1 [facility] Department [place] [address] * (ABNORMAL) Comprehensive metabolic panel (08/15/2024 11:05 AM CDT) Sodium 141 135 - 145 mmol/L Potassium, pl 3.7 3.3 - 4.9 mmol/L [facility] ([place]) Chloride 104 97 - 110 mmol/L [facility] ([place]) CO2 25 22 - 32 mmol/L [facility] ([place]) Anion gap 12 2 - 15 mmol/L [facility] ([place]) BUN 13 6 - 25 mg/dL [facility] ([place]) Creatinine 0.53(L) 0.60 - 1.10 mg/dL [facility] ([place]) Glucose 96 70 - 199 mg/dL [facility] ([place] [...] interpretive data was last revised 2022. Calcium 9.3 8.5 - 10.3 mg/dL [facility] ([place]) Bilirubin, total 0.5 0.1 - 1.2 mg/dL [facility] ([place]) Protein, pl 7.2 6.5 - 8.5 g/dL [facility]) Albumin 3.8 3.5 - 5.0 g/dL [facility] ([place]) Alk phos 90 40 - 130 Units/L [facility] ([place] ALT 24 7 - 45 Units/L [facility] AST 41 10 - 45 Units/L [facility] ([place]) Comment:Slightly Hemolyzed S pecimen Blood 08/15/2024 11:0 5 AM CDT 08/15/2024 11:37 AM CDT us Jesenia Mckeon MD LAB BLOOD ORDERABLES Final Re sult [facility] ([place]) 1 [facility] Department [place] [address] * Hepatitis panel, acute Blood (06/11/2024 11:59 AM MAIL ORDER SORTER) Hep A IgM Nonreactive Nonreactive Comment: Interpretive Data: If Hep A IgM Ab is reported as Equivocal, a new sample should be drawn in two weeks for testing. Current interpretive data was last revised on 19. Testing performed by: [address] [address] Hep B core IgM Nonreactive Nonreactive [facility] ([place]) Comment: Interpretive Data If HepB Core IgM Ab is reported as Equivocal, a new sample should be drawn in two weeks for testing. Current interpretive data was last revised on 19. Testing performed by: [address] [address] Hep C Ab Nonreactive Nonreactive [facility] [...] last revised on 2019. Testing performed by: [address] [address] HepBsAg Nonreactive Nonreactive [facility] ([place]) Comment:Testing performed by : [address] [address] Blood 06/11/2024 11:5 9 AM MAIL ORDER SORTER 06/11/2024 1:56 PM MAIL ORDER SORTER us Dana Maradiaga MD LAB MICROBIOLOGY - GENERAL ORDERABLES Final Result [facility] ([place]) 1 [facility] Department [place] [address] from Last 3 Months or Most Recently Relevant to Health Maintenance Insurance [employer] [facility] [place] Advance Directives For more information, please contact: [phone] * Full Code (Latest Code Status on File) Date Activated Date Inactivated Comments 08/15/2024 3:03 PM 08/17/2024 6:27 PM * Full Code Date Activated Date Inactivated Comments 06/09/2024 2:35 PM 06/12/2024 5:25 PM * Full Code Date Activated Date Inactivated Comments 04/25/2024 5:41 PM 05/07/2024 7:44 PM Care Teams Security Controls Assessor Relationship Specialty Start Date End Date Bladimir Crowder MD [address] [place] [id number] PCP - General Family Medicine 04/25/24
--- OUTSIDE RECORDS SUMMARY | 2024-09-13 15:25 | XMS_ITS | Referral Summary ---
Author Organization [facility] Address [address] [place] [address] Care Team Providers Care Grain Processor Name Role Phone Bladimir Crowder MD Primary Care Provider [phone] Encounters Date Type Department Care Team Description 08/17/2024 Documentation [facility] Warm Hand Off Program [address] [place], [place] [phone] Sanaz Thomason 08/15/2024 2:00 PM CDT - 08/17/2024 2:25 PM CDT Hospital Encounter [facility] Medical Care [address] [place] [address] Jesenia Mckeon MD Saeed, Salman, MD Alcohol use disorder [F10.90] (Primary Dx) Discharge Disposition: Discharge to home or self care 08/16/2024 Documentation [facility] Warm Hand Off Program [address] [place], [place] [phone] Latrice Dumont 08/15/2024 [facility] Enrollment [facility] Warm Hand Off Program [address] [place], [place] [phone] Bo Rojas 08/15/2024 11:00 AM CDT Lab [address] [phone] 08/11/2024 [facility] Outreach [facility] Warm Hand Off Program [address] [place], [place] [phone] Sanaz Thomason 08/11/2024 [facility] Initial Eligibility [facility] Warm Hand Off Program [address] [place], [place] [phone] Sanaz Thomason from Last 3 Months Allergies No known [...] 06/09/2024 Assessment & Plan (06/09/2024 3:43 PM PARKING ANALYST): Chronic hx. Managed w/ Creon TID. Pt has non-specific abdominal pain in the setting of alcohol withdrawal. Amylase and lipase are normal. Acute pancreatitis is unlikely. Plan: - Continue Creon - Monitor IV fluids - If abdominal pain persists or worsens, consider CT abdomen Cirrhosis 06/09/2024 Assessment & Plan (06/09/2024 3:33 PM PARKING ANALYST): Chronic hx. LFTs are normal. PT, PTT, and INR are normal. Currently stable Plan: - Monitor for symptoms Unspecified mood disorder 05/02/2024 Alcohol withdrawal syndrome without complication 04/25/2024 Assessment & Plan (06/09/2024 3:42 PM PARKING ANALYST): 49 y/o female w/ alcohol use disorder, [...] 08/15/2024 3:43 PM CDT Plan of Treatment Not on file Procedures [...] HEPATITIS PANEL, ACUTE Routine 06/11/2024 11:59 AM PARKING ANALYST from Last 3 Months or Most Recently [...] Final Resul t [facility] ([place]) 1 [facility] [place] [address] * (ABNORMAL) CBC without differential (08/17/2024 4:36 [...] 4:36 AM CDT 08/17/2024 5:06 AM CDT Alexis Barbour MD LAB BLOOD ORDERABLES Final Resul t [facility]IE [facility] ([place]) 1 [facility] [place] [address] * (ABNORMAL) Phosphorus (08/17/2024 4:36 AM CDT) Phosphorus, pl 4.7(H) 2.3 - 4.5 mg/dL Blood 08/17/2024 4:36 AM CDT 08/17/2024 5:07 AM CDT Alexis Barbour MD LAB BLOOD ORDERABLES Final Resul t [facility] ([place]) 1 [facility] [place] [address] * Magnesium (08/17/2024 4:36 AM CDT) Magnesium 1.7 1.4 - 2.5 mg/dL Blood 08/17/2024 4:36 AM CDT 08/17/2024 5:07 AM CDT Alexis Barbour MD LAB BLOOD ORDERABLES Final Resul t Performing Organization Address [facility] de Phone Number [facility] ([place]) [address] [place] [address] * (ABNORMAL) Comprehensive metabolic panel (08/17/2024 4:36 AM CDT) Sodium 142 135 - 145 mmol/L Potassium, pl 3.8 3.3 - 4.9 mmol/L [facility] ([place]) Chloride 105 97 - 110 mmol/L [facility] ([place]) CO2 24 22 - 32 mmol/L [facility] ([place]) Anion gap 13 2 - 15 mmol/L [facility] ([place]) BUN 15 6 - 25 mg/dL [facility] ([place]) Creatinine 0.51(L) 0.60 - 1.10 mg/dL [facility] ([place]) Glucose 108 70 - 199 mg/dL [facility] ([place]) Comment: Interpretive Data Fasting glucose [...] ORDERABLES Final Resul t Performing Organization Address City/[facility]/ZIP Co de Phone Number [facility]IE RE[facility] ([place]) 1 [facility] [place] [address] * Phosphorus (08/16/2024 12:06 PM CDT) Phosphorus, pl 3.5 2.3 - 4.5 mg/dL Blood 08/16/2024 12:0 6 PM CDT 08/16/2024 12:29 PM CDT us Alexis Barbour MD LAB BLOOD ORDERABLES Final Resul t [facility] ([place]) 1 [facility] [place] [address] * Magnesium (08/16/2024 12:06 PM CDT) Magnesium 1.4 1.4 - 2.5 mg/dL Blood 08/16/2024 12:0 6 PM CDT 08/16/2024 12:29 PM CDT us Alexis Barbour MD LAB BLOOD ORDERABLES Final Resul t Performing Organization Address [facility] Co de Phone Number [facility]IE RE[facility] ([place]) 1 [facility] [place] [address] * eGFR (08/16/2024 5:39 AM CDT) eGFR [...] 5:39 AM CDT 08/16/2024 6:01 AM CDT Alexis Barbour MD LAB BLOOD ORDERABLES Final Resul t Performing Organization Address City/[facility] Co de Phone Number [facility]IE RE[facility] ([place]) 1 [facility] [place] [address] * (ABNORMAL) CBC without differential (08/16/2024 5:39 AM CDT) WBC 2.35(L) 3.80 - 9.90 K/cumm Hgb 13.3 11.9 - 15.5 g/dL [facility] ([place]) Hct 38.7 35.6 - 45.5 % [facility] ([place]) Plt 54(L) 150 - 400 K/cumm [facility] ([place]) MPV 11.6 9.1 - 12.3 fL [facility] ([place]) RBC 4.05 3.90 - 5.20 M/cumm [facility] ([place]) MCV 95.6 81.3 - 96.4 fL [facility] ([place]) MCH 32.8 27.1 - 33.[address] [facility] MCHC 34.4 32.3 - 35.7 g/dL [facility] ([place]) RDW CV 13.3 11.1 - 14.9 % [facility] RDW SD 47.1 35.7 - 48.1 fL [facility] ([place]) NRBC abs 0.00 0.00 - 0.01 K/cumm [facility] ([place]) Blood 08/16/2024 5:39 AM CDT 08/16/2024 6:01 AM CDT us Alexis Barbour MD LAB BLOOD ORDERABLES Final Resul t [facility] ([place]) 1 [facility] Department [place] [address] * (ABNORMAL) Comprehensive metabolic panel (08/16/2024 5:39 AM CDT) Sodium 144 135 - 145 mmol/L Potassium, pl 3.5 3.3 - 4.9 mmol/L [facility] ([place]) Chloride 107 97 - 110 mmol/L [facility] ([place]) CO2 26 22 - 32 mmol/L [facility]) Anion gap 11 2 - 15 mmol/L [facility] BUN 14 6 - 25 mg/dL [facility] ([place]) Creatinine 0.56(L) 0.60 - 1.10 mg/dL [facility] Glucose 105 70 - 199 mg/dL [facility] ([place]) Comment: Interpretive Data Fasting glucose [...] 18 7 - 45 Units/L [facility] ([place]) AST 30 10 - 45 Units/L [facility] ([place]) Blood 08/16/2024 5:39 AM CDT 08/16/2024 6:01 AM CDT us Alexis Barbour MD LAB BLOOD ORDERABLES Final Resul t [facility] ([place]) 1 [facility] [place] [address] * CT Abdomen Pelvis W Contrast (08/15/2024 [...] lymph node or free fluid. Hysterectomy. MSK: [id number] disc disease and facet arthropathy. BODY WALL: Unremarkable. IMPRESSION: No acute abnormality identified. Advanced cirrhosis and other chronic findings as above. THIS IS AN ELECTRONICALLY VERIFIED FINAL REPORT 08/15/2024 8:48 PM - Electronically signed by Chang Wynn M.D. AR: FELIPE Report ID: [id number] Reading Location: [place] [address] Procedure Note Chang Wynn MD - 08/15/2024 [...] lymph node or free fluid. Hysterectomy. MSK: [id number] disc disease and facet arthropathy. BODY WALL: Unremarkable. IMPRESSION: No acute abnormality identified. Advanced cirrhosis and other chronic findings as above. THIS IS AN ELECTRONICALLY VERIFIED FINAL REPORT 08/15/2024 8:48 PM - Electronically signed by Chang Wynn M.D. AR: [place] Report ID: [id number] Reading Location: [place] [address] Result [facility] us Alexis Barbour MD IMG CT PROCEDURES Final Result * (ABNORMAL) Lipase (08/15/2024 4:17 PM CDT) Lipase 109(H) 10 - 99 Units/L Blood 08/15/2024 4:17 PM CDT 08/15/2024 4:19 PM CDT Result [facility] us Alexis Barbour MD LAB BLOOD ORDERABLES Final Resul t Performing Organization Address [facility] de Phone Number [facility] 1 [facility] [place] [address] * Amylase (08/15/2024 4:17 PM CDT) Amylase 68 30 - 99 Units/L Blood 08/15/2024 4:17 PM CDT 08/15/2024 4:19 PM CDT Result [facility] Alexis Barboru MD LAB BLOOD ORDERABLES Final Resul t Performing Organization Address City/[facility] de Phone Number [facility] [address] [place] [address] [place] [address] * Ethanol (08/15/2024 4:17 PM CDT) Ethanol <10 <=10 mg/dL Comment: Interpretive Data Legal limit of intoxication > or = 80 mg/dL Levels > or = 400 mg/dL are potentially TOXIC. Current interpretive data was last revised on 2018. Blood 08/15/2024 4:17 PM CDT 08/15/2024 4:20 PM CDT Alexis Barbour MD LAB BLOOD ORDERABLES Final Resul t Performing Organization Address City/[facility]/ZIP Co de Phone Number [facility] ([place]) 1 [facility] [place] [place] [address] * eGFR (08/15/2024 11:05 AM CDT) eGFR [...] ORDERABLES Final Re sult Performing Organization Address City/[facility]/ZIP Co de Phone Number [facility] ([place]) 1 [facility] [place] [address] * (ABNORMAL) Drugs of Abuse Screen, Urine without Confirmation (08/15/2024 11:05 AM CDT) Amphetamine, ur Not Detected CutOff 500ng/mL Comment: [...] last reviewed 2022. Urine Creatinine 76 mg/dL [facility] ([place]) Comment: Interpretive Data Urine Creatinine: < 10 mg/dL is extremely dilute = or > 10 but < 20 mg/dL is dilute = or > 20 mg/dL is normal Current Interpretive Data was last revised on 2017. Urine 08/15/2024 11:0 5 AM CDT 08/15/2024 11:58 AM CDT Narrative [facility] ([place]) - 08/15/2024 12:13 PM CDT Drug of Abuse screening is performed by immunoassay for medical purposes only. This is not to be used for Pain Management purposes. us Jesenia Mckeon MD LAB URINE ORDERABLES Final Re sult [facility] ([place]) 1 [facility] [place] [address] * (ABNORMAL) CBC without differential (08/15/2024 11:05 [...] Final Re sult [facility] ([place]) 1 [facility] [place] [address] * (ABNORMAL) Comprehensive metabolic panel (08/15/2024 11:05 AM CDT) Pathologist [facility] Sodium 141 135 - 145 mmol/L Potassium, [...] MD LAB BLOOD ORDERABLES Final Re sult [facility] 1 [facility] [place], [place] [id number] * Hepatitis panel, acute Blood (06/11/2024 11:59 AM PARKING ANALYST) Hep A IgM Nonreactive Nonreactive Comment: Interpretive Data: If Hep A IgM Ab is reported as Equivocal, a new sample should be drawn in two weeks for testing. Current interpretive data was last revised on 19. Testing performed by: [facility], [address] [place] [address]., [id number] Hep B core IgM Nonreactive Nonreactive C [facility] ([place]) Comment: Interpretive Data If HepB Core IgM Ab is reported as Equivocal, a new sample should be drawn in two weeks for testing. Current interpretive data was last revised on 19. Testing performed by: [facility], [address] [place] [address]., [address] Hep C Ab Nonreactive Nonreactive [facility]IE RE[facility]E [...] 2019. Testing performed by: [facility], [address] [place] [address]., [id number] HepBsAg Nonreactive Nonreactive [facility] ([place]) Comment:Testing performed by : [address] [address] Blood 06/11/2024 11:5 9 AM PARKING ANALYST 06/11/2024 1:56 PM PARKING ANALYST Dana Maradiaga MD LAB MICROBIOLOGY - GENERAL ORDERABLES Final Result [facility] ([place]) 1 [facility] [place] [address] from Last 3 Months or Most Recently Relevant to Health Maintenance Insurance [employer] [facility] Advance Directives For more information, please contact: [phone] * Full Code (Latest Code Status on File) Date Activated Date Inactivated Comments 08/15/2024 3:03 PM 08/17/2024 6:27 PM * Full Code Date Activated Date Inactivated Comments 06/09/2024 2:35 PM 06/12/2024 5:25 PM * Full Code Date Activated Date Inactivated Comments 04/25/2024 5:41 PM 05/07/2024 7:44 PM Care Teams Grain Processor Relationship Specialty Start Date End Date Bladimir Crowder MD [address] [place] [id number] PCP - General Family Medicine 04/25/24
[2024-09-13 15:34] LABS: Lactic Acid Reflex 1.4 mmol/L (0.4-2.0)
[2024-09-13 15:41] LABS: Alanine Aminotransferase 22 U/L (6-35); Albumin Level 3.9 g/dL (3.5-5.1); Alkaline Phosphatase 71 U/L (38-126); Anion Gap 7 mmol/L (4-12); Aspartate Amino Transferase 46 U/L (14-36); Bilirubin,Total 0.8 mg/dL (0.2-1.3); Blood Urea Nitrogen 12 mg/dL (7-17); Calcium 8.5 mg/dL (8.4-10.2); Carbon Dioxide 24 mmol/L (22-30); Chloride 109 mmol/L (98-107); Estimated CRCL calculation 101 ml/min; Estimated Glomerular Filt Rate > 60; Glucose 94 mg/dL (65-110); Lipase 410 U/L (23-300); Osmolality Calculated 289 mOsm/kg (285-295); Potassium 3.4 mmol/L (3.4-5.0); Sodium 140 mmol/L (137-145); Total Protein 7.2 g/dL (6.3-8.2)
[2024-09-13 15:45] LABS: INR 1.1; Prothrombin Time 11.8 Seconds (9.50-12.1)
[2024-09-13 15:53] LABS: Troponin I < 0.012 ng/mL (0.000-0.034)
[2024-09-13 16:08] LABS: Ethanol 48 mg/dL (<10)
[2024-09-13 16:12] LABS: Add Urine Microscopic? NO; Appearance Urine Clear (Clear); Bilirubin Urine Negative (Negative); Blood Urine Negative (Negative); Color Urine Light Yellow (Yellow); Glucose Urine UA Negative (Negative); Ketones Urine Negative (Negative); Leukocyte Esterase Ur Negative LEU/UL (Negative); Nitrate Urine Negative (Negative); Protein Urine Negative (Negative); Specific Grav Ur <= 1.005 (1.010-1.020); Urobilinogen Urine 0.2 mg/dL (0.2-1.0)
[2024-09-13 16:30] VITALS: BP 152/92; PULSE 65; RESP 20; O2SAT 96
[2024-09-13] MEDS: HYDROmorphone HCL INJ (*CRX) 2 MG/ML VIAL 0.5 MG IV PUSH ×2 (16:52→23:09)
--- NOTE | 2024-09-13 17:26 | ED_ITS ---
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 With no fever chills currently there is no nausea or vomiting no dysuria no hematuria no chest pain or shortness of breath. MD elicited complaint: abdominal pain Pertinent past history: other ( pancreatitis and liver cirrhosis) Onset (ago): day(s) Pain Consistency: constant Quality: aching Radiation: LUQ Migration to: L flank Exacerbating factors: nothing Relieving factors: nothing Related Data Home Medications ?Medication ?Instructions ?Recorded ?Confirmed ?Last Taken ?Type gabapentin 300 mg capsule 400 mg PO TID 02/03/24 08/13/24 Unknown History nabumetone 500 mg PO TID 02/26/24 08/13/24 Unknown History gabapentin 400 mg capsule mg 08/13/24 Unknown History hydroxyzine pamoate 25 mg capsule 25 mg PO DAILY 08/13/24 08/13/24 Unknown History multivitamin with folic acid 400 1 tablet PO DAILY 08/13/24 08/13/24 Unknown History mcg tablet (Daily-Mira (with folic acid)) peg 3350-electrolytes 236 20 ml PO DAILY 08/13/24 08/13/24 Unknown History gram-22.74 gram-6.74 gram-5.86 gram solution (GaviLyte-G) sertraline 100 mg tablet 100 mg PO Q24H 08/13/24 08/13/24 Unknown History trazodone 150 mg tablet 150 mg PO DAILY 08/13/24 08/13/24 Unknown History Allergies Allergy/AdvReac Type Severity Reaction Status Date / Time No Known Allergies Allergy Verified 08/13/24 08:25 Review of Systems 2 Review of Systems: All systems reviewed & are unremarkable except as noted in HPI and below PMFSH Past Medical History Medical History Hypertension ETOH abuse Social History Social History Smoking status: Never smoker Second hand tobacco smoke exposure: No Alcohol intake: current Drinks per week: 30 Substance use: current Substance use type: marijuana Other substance usage details: Last drink was at 6am this morning Do You Feel Safe in your Home?: No Lack of Transportation: YES Lack of Food: Sometimes True Current Housing: I Do Not Have Housing Concerned About Future Housing: YES Difficulty Paying Gas/Electric Bills: YES Difficulty Paying for Meds: YES Currently Unemployed: YES Education: High School Diploma/GED Difficulty w/ Childcare or Family Care: No Spiritual care concerns: No Exam 2 Const: General: healthy appearing Nutritional Appearance: well nourished Orientation/consciousness: patient oriented x3 Limitations: no limitations HENMT: Head: normal to inspection Eyes: Conjunctivae: conjunctivae normal Pupils: Equal, round and reactive pupils present EOM: EOMs intact bilaterally Neck: Neck: normal visual inspection Chest: Chest palpation & inspection: normal inspection of the chest Resp: Effort & Inspection: normal respiratory effort Auscultation: clear to auscultation bilaterally Cardio: Rate: regular rate Rhythm: regular rhythm GI: GI Palp: Yes Soft to palpation and Yes Tenderness to palpation present (GI) Auscultation: normal bowel sounds : General: Yes bladder normal to palpation Skin: General skin exam: normal color Rashes: no rashes Wounds: no wounds Neuro: General: patient oriented x3, moves all extremities, no meningeal signs and no focal motor deficits Course Course Emergency Course: Patient with left upper quadrant pain consistent with pancreatitis with a lipase of 400 lactic is 1.4 her white count is 4.2 with a BUN of 12 creatinine 0.54 albumin 3.9 ALT is 46 AST is 22 with a bilirubin of 0.8 alk-phos of 71. PT INR is 11.8 and 1.1 with a PTT of 28 troponins negative EKG shows normal sinus rhythm. Patient had a CT scan of the abdomen and pelvis with contrast which shows cirrhosis of the liver with no evidence of ascites no pancreatic abscess or pseudocyst and evidence of cholelithiasis. Patient received a L of fluids pain control with morphine and Dilaudid. Will admit to hospitalist service and kept NPO. Vital Signs Vital signs: Vital Signs Temperature 36.6 C 09/13/24 14:43 Pulse Rate 68 09/13/24 14:43 Respiratory Rate 18 09/13/24 14:43 Blood Pressure 143/94 H 09/13/24 14:43 Pulse Oximetry 98 09/13/24 14:43 Oxygen Delivery Room Air 09/13/24 14:43 Temperature 36.6 C 09/13/24 14:43 Pulse Rate 68 09/13/24 14:43 Respiratory Rate 18 09/13/24 14:43 Blood Pressure 143/94 H 09/13/24 14:43 Pulse Oximetry 98 09/13/24 14:43 Oxygen Delivery Room Air 09/13/24 14:43 MDM - Abdominal Pain Lab Data 09/13/24 15:11 09/13/24 15:11 Labs: Lab Results 09/13/24 Range/Units 15:11 WBC 4.2 L (4.8-10.8) K/mm3 RBC 4.32 (4.20-5.40) M/mm3 Hgb 13.6 (12.0-15.0) g/dL Hct 41.0 (35.0-49.0) % MCV 94.9 (78.0-102.0) fL MCH 31.5 H (27.0-31.0) pg MCHC 33.2 (32-36) g/dL RDW 13.5 (11.6-14.4) % Plt Count 93 L (150-420) K/mm3 MPV 10.4 (9.2-11.8) fl Immature Gran % (Auto) 0.2 H (0.0-0.0) % Neut % (Auto) 56.1 (50.0-70.0) % Lymph % (Auto) 28.9 (18.0-42.0) % Piatt % (Auto) 12.9 H (2.0-11.0) % Eos % (Auto) 1.4 (1.0-6.0) % Baso % (Auto) 0.5 (0.0-1.0) % Lymph # (Auto) 1.21 (1.10-4.50) K/mm3 Piatt # (Auto) 0.54 (0.10-0.90) K/mm3 Eos # (Auto) 0.06 (0.02-0.50) K/mm3 Baso # (Auto) 0.02 (0.00-0.10) K/mm3 Abs Immat Gran (auto) 0.01 H (0.00-0.00) K/mm3 Absolute Neuts (auto) 2.34 (1.70-7.20) K/mm3 Absolute Nucleated RBC 0.00 (0.00-0.00) K/mm3 Nucleated RBC % 0.0 (0-0.0) % % Immature Plt Fraction 2.6 (1.0-7.0) % PT 11.8 (9.50-12.1) Seconds INR 1.1 APTT 28.0 (23.9-30.70) Sec Sodium 140 (137-145) mmol/L Potassium 3.4 (3.4-5.0) mmol/L Chloride 109 H (98-107) mmol/L Carbon Dioxide 24 (22-30) mmol/L Anion Gap 7 (4-12) mmol/L BUN 12 (7-17) mg/dL Creatinine 0.54 L (0.7-1.0) mg/dL Estim Creat Clear Calc 101 ml/min Estimated GFR > 60 (59 - ) Glucose 94 (65-110) mg/dL Calculated Osmolality 289 (285-295) mOsm/kg Lactic Acid 1.4 (0.4-2.0) mmol/L Calcium 8.5 (8.4-10.2) mg/dL Total Bilirubin 0.8 (0.2-1.3) mg/dL AST 46 H (14-36) U/L ALT 22 (6-35) U/L Alkaline Phosphatase 71 (38-126) U/L Troponin I < 0.012 (0.000-0.034) ng/mL Total Protein 7.2 (6.3-8.2) g/dL Albumin 3.9 (3.5-5.1) g/dL Lipase 410 H (23-300) U/L Urine Color Light yellow (Yellow) Urine Appearance Clear (Clear) Urine pH 6.0 (5.0-8.0) Ur Specific [place] <= 1.005 L (1.010-1.020) Urine Protein Negative (Negative) Urine Glucose (UA) Negative (Negative) Urine Ketones Negative (Negative) Ur Blood (Man) Negative (Negative) Urine Nitrate Negative (Negative) Urine Bilirubin Negative (Negative) Urine Urobilinogen 0.2 (0.2-1.0) mg/dL Leukocyte Esterase Rfl Negative (Negative) KATELYNN/UL Ethyl Alcohol 48 (<10) mg/dL Imaging Data Radiologist's impression: ITS Impressions Abdomen/Pelvis CT 09/13/24 16:51 IMPRESSION: 1. No acute abdominal abnormality. 2: Cirrhosis of the liver. 3: Cholelithiasis. 4: Mild bladder wall thickening which may be due to underdistention, although cystitis not excluded. Clinically correlate. Critical Care Time Critical Care Time Critical Care Time: No Discharge Plan Discharge Clinical Impression: Acute alcoholic pancreatitis Qualifiers: Acute pancreatitis complication: no infection or necrosis Qualified Code(s): K 85.20 - Alcohol induced acute pancreatitis without necrosis or infection Patient Disposition: Acute Care Hospital Condition: Guarded Prognosis Patient Language: Faroese Prescriptions: No Action gabapentin 300 mg capsule 400 mg PO TID nabumetone 500 mg PO TID lorazepam [Ativan] 0.5 mg tablet 0.5 mg PO BID PRN (Reason: anxiety) Qty: 20 0RF gabapentin 400 mg capsule sertraline 100 mg tablet 100 mg PO Q24H trazodone 150 mg tablet 150 mg PO DAILY hydroxyzine pamoate 25 mg capsule 25 mg PO DAILY peg 3350-electrolytes [GaviLyte-G] 236-22.74-6.74 -5.86 gram recon soln 20 ml PO DAILY multivitamin with folic acid [Daily-Mira (with folic acid)] 400 mcg tablet 1 tablet PO DAILY dicyclomine 20 mg tablet 20 mg PO QID Qty: 20 0RF potassium chloride 20 mEq packet 20 meq PO BID 7 Days Qty: 14 0RF Follow-up/Referrals: Deshaun,Ruma Aden MD [Primary Care Provider] - Time of Disposition: 17:31
[2024-09-13 18:00] VITALS: BP 156/106; PULSE 56; RESP 20; O2SAT 95
--- NOTE | 2024-09-13 18:15 | ADMGEN ---
This patient, Latrice Valencia, was admitted to 2nd Floor Room 203-1. Patient/family oriented to hospital policies and general routines including ID bracelet, bed and alarms, visiting hours, pain management, procedures, bathroom and other care routines, personal items, smoking policy, room service/diet, and visiting hours. Information on how to activate the Rapid Response Team has been discussed. Patient/Family are encouraged to report perceived risks to care and to ask questions if they do not understand what they are told or what they should do.
[2024-09-13 18:20] VITALS: BP 163/88; PULSE 58; RESP 17; TEMP 37
[2024-09-13 18:36] VITALS: BMI 27.6
[2024-09-13] MEDS: SODIUM CHLORIDE 0.9% IV 1,000 ML 100 ML IV CONT (18:52)
[2024-09-13] MEDS: GABAPENTIN 100 MG CAPSULE PO (21:40)
[2024-09-13] MEDS: LORazepam (*CRX) 0.5 MG TABLET PO (21:41)
[2024-09-13] MEDS: GABAPENTIN 300 MG CAPSULE PO (21:41)
[2024-09-13] MEDS: traZODone HCL 50 MG TABLET 150 MG PO (21:45)
[2024-09-13] MEDS: ONDANSETRON INJ 4 MG/2 ML VIAL IV PUSH (23:08)
[2024-09-14] VITALS: BP 130/86; PULSE 60; RESP 16; TEMP 36.3; O2SAT 97
[2024-09-14] MEDS: HYDROmorphone HCL INJ (*CRX) 2 MG/ML VIAL 0.5 MG IV PUSH ×2 (05:13→10:05)
[2024-09-14] MEDS: SODIUM CHLORIDE 0.9% IV 1,000 ML 100 ML IV CONT (05:14)
[2024-09-14] MEDS: GABAPENTIN 300 MG CAPSULE PO (05:14)
[2024-09-14] MEDS: GABAPENTIN 100 MG CAPSULE PO (05:14)
[2024-09-14 05:46] LABS: Hematocrit 40.8 % (35.0-49.0); Hemoglobin 13.5 g/dL (12.0-15.0); Immature Platelet Fraction Pct 2.5 % (1.0-7.0); Mean Corpuscular HGB Conc 33.1 g/dL (32-36); Mean Corpuscular Hemoglobin 31.9 pg (27.0-31.0); Mean Corpuscular Volume 96.5 fL (78.0-102.0); Mean Platelet Volume 10.5 fl (9.2-11.8); Platelet Count Result 89 K/mm3 (150-420); Red Blood Count 4.23 M/mm3 (4.20-5.40); Red Cell Distribution Width 13.7 % (11.6-14.4); White Blood Count 3.5 K/mm3 (4.8-10.8)
[2024-09-14 06:01] LABS: Alanine Aminotransferase 20 U/L (6-35); Albumin Level 3.4 g/dL (3.5-5.1); Alkaline Phosphatase 74 U/L (38-126); Anion Gap 2 mmol/L (4-12); Aspartate Amino Transferase 36 U/L (14-36); Bilirubin,Total 0.7 mg/dL (0.2-1.3); Blood Urea Nitrogen 9 mg/dL (7-17); Carbon Dioxide 25 mmol/L (22-30); Chloride 112 mmol/L (98-107); Estimated CRCL calculation 111 ml/min; Estimated Glomerular Filt Rate > 60; Glucose 88 mg/dL (65-110); Lipase 191 U/L (23-300); Osmolality Calculated 285 mOsm/kg (285-295); Potassium 3.5 mmol/L (3.4-5.0); Sodium 139 mmol/L (137-145); Total Protein 6.5 g/dL (6.3-8.2)
[2024-09-14 06:14] LABS: Lymphocytes Absolute Manual 1.61 K/mm3 (1.1-4.5); Lymphocytes Percent Manual 46 % (18-44); Neutrophils Percent Manual 42 % (46-73); Total Cells Counted 100
[2024-09-14 06:15] LABS: Eosinophils Absolute Manual 0.07 K/mm3 (0.02-0.50); Eosinophils Percent Manual 2 % (1-6); Monocytes Absolute Manual 0.35 K/mm3 (0.1-0.90); Monocytes Percent Manual 10 % (3-9); Platelet Estimate Adequate (Adequate); Schistocytes None Seen
[2024-09-14 08:00] VITALS: BP 119/71; PULSE 58; RESP 15; TEMP 35.8; O2SAT 93
--- NOTE | 2024-09-14 08:53 | PC.NURSE ---
DIGITAL PRINTER made aware the patient flagged for sever sepsis. T 96.5, HR 58.
[2024-09-14] MEDS: hydrOXYzine pamoate 25 MG CAPSULE PO (09:02)
[2024-09-14] MEDS: LORazepam (*CRX) 0.5 MG TABLET PO (09:02)
[2024-09-14] MEDS: SERTRALINE HCL 50 MG TABLET 100 MG PO (09:02)
[2024-09-14] MEDS: ONDANSETRON INJ 4 MG/2 ML VIAL IV PUSH (10:04)
[2024-09-14 10:29] LABS: Magnesium 1.5 mg/dL (1.6-2.3)
--- NOTE | 2024-09-14 10:44 | P.SS_ITS ---
Same Day Admit/Disch: HPI History of Present Illness Chief complaint: ABD Pain Narrative: Latrice Valencia is a 49 year old female Who presented to the emergency room with complaints of severe abdominal pain which started 2 days prior to arrival. Patient reports she does have a past medical history of hypertension and ETOH abuse with cirrhosis and chronic pancreatitis. Patient reported her last drink hours prior to arrival to the emergency room with some nausea vomiting patient states abdominal pain would not improve and she was unable to tolerate any oral intake prior to arrival. in the emergency department patient's labs revealed elevated lipase normal liver enzymes, hypokalemia and dehydration. CT abdomen showed cirrhosis of the liver and cholelithiasis but no acute abdominal abnormalities. patient was admitted to the medical unit for IV hydration and electrolyte replacement with antiemetics and pain management for acute pancreatitis. Patient denied any chest pain, shortness a breath no further nausea or vomiting on assessment and abdominal pain moving PMFSH Past Medical History Medical History Cirrhosis GERD (gastroesophageal reflux disease) Hypertension ETOH abuse Social History Social History Smoking status: Never smoker Second hand tobacco smoke exposure: No Alcohol intake: current Drinks per week: 7 Substance use: current Substance use type: marijuana Other substance usage details: daily marijuana use. Do You Feel Safe in your Home?: Yes Lack of Transportation: No Lack of Food: Sometimes True Current Housing: I Have Housing Concerned About Future Housing: No Difficulty Paying Gas/Electric Bills: YES Difficulty Paying for Meds: No Currently Unemployed: YES Education: High School Diploma/GED Difficulty w/ Childcare or Family Care: No Spiritual care concerns: No Same Day Admit/Disch: Med Pre-admit Medications Home Medications ?Medication ?Instructions ?Recorded ?Confirmed ?Type lorazepam 0.5 mg tablet (Ativan) 0.5 mg PO BID PRN anxiety #20 tabs 07/15/24 09/13/24 Rx gabapentin 400 mg capsule 400 mg PO Q8H 08/13/24 09/13/24 History hydroxyzine pamoate 25 mg capsule 25 mg PO DAILY 08/13/24 09/13/24 History sertraline 100 mg tablet 100 mg PO Q24H 08/13/24 09/13/24 History trazodone 150 mg tablet 150 mg PO DAILY 08/13/24 09/13/24 History hydrocodone 5 mg-acetaminophen 325 1 tablet PO Q8H PRN pain #20 tabs 09/14/24 Rx mg tablet magnesium oxide 400 mg PO DAILY #30 tabs 09/14/24 Rx ondansetron 4 mg disintegrating 4 mg PO Q8H PRN nausea and 09/14/24 Rx tablet vomiting #30 tabs pantoprazole 40 mg tablet,delayed 40 mg PO HS #30 tabs 09/14/24 Rx release sucralfate 100 mg/mL oral 2 g (20 mL) PO TIDWM #414 mL 09/14/24 Rx suspension (Carafate) Review of Systems Review of Systems All systems reviewed & are unremarkable except as noted in HPI and below Exam Const: General: comfortable and no acute distress HENMT: Ears: TM's normal bilaterally Face/Nose/Sinus: Normal nares present Mouth: Yes moist mucous membranes Eyes: General: appearance normal, both eyes and all related structures Sclera: sclerae normal Pupils: Equal, round and reactive pupils present Neck: Neck: supple and no JVD Resp: Effort & Inspection: normal respiratory effort Auscultation: clear to auscultation bilaterally Cardio: Rate: regular rate Rhythm: regular rhythm GI: Auscultation: normal bowel sounds Other: Soft but LUQ tenderness Skin: General skin exam: normal color and no rashes or lesions noted Wounds: no wounds Neuro: General: gait normal Speech: normal speech Motor exam (neuro): 5/5 motor strength present throughout Sensory Exam: normal sensation Extrem: General: normal to inspection Psych: Mental Status: mental status grossly normal Affect: normal affect DS: Data Data Completed and Pending Labs on day of discharge: Labs from last 24 hours 09/14/24 09/14/24 09/13/24 05:47 05:21 15:11 WBC 3.5 L 4.2 L RBC 4.23 4.32 Hgb 13.5 13.6 Hct 40.8 41.0 MCV 96.5 94.9 MCH 31.9 H 31.5 H MCHC 33.1 33.2 RDW 13.7 13.5 Plt Count 89 L 93 L MPV 10.5 10.4 Immature Gran % (Auto) Not Reportable 0.2 H Neut % (Auto) Not Reportable 56.1 Lymph % (Auto) Not Reportable 28.9 [place] % (Auto) Not Reportable 12.9 H Eos % (Auto) Not Reportable 1.4 Baso % (Auto) Not Reportable 0.5 Lymph # (Auto) Not Reportable 1.21 [place] # (Auto) Not Reportable 0.54 Eos # (Auto) Not Reportable 0.06 Baso # (Auto) Not Reportable 0.02 Abs Immat Gran (auto) Not Reportable 0.01 H Absolute Neuts (auto) Not Reportable 2.34 Absolute Nucleated RBC Not Reportable 0.00 Total Counted 100 Neutrophils % (Manual) 42 L Band Neutrophils % Not Reportable Lymphocytes % (Manual) 46 H Monocytes % (Manual) 10 H Eosinophils % (Manual) 2 Nucleated RBC % Not Reportable 0.0 Abs Lymphs (Manual) 1.61 Abs Monocytes (Manual) 0.35 Absolute Eos (Manual) 0.07 Platelet Estimate Adequate % Immature Plt Fraction 2.5 2.6 Bite Cells Not Reportable Schistocytes None seen PT 11.8 INR 1.1 APTT 28.0 Sodium 139 140 Potassium 3.5 3.4 Chloride 112 H 109 H Carbon Dioxide 25 24 Anion Gap 2 L 7 BUN 9 12 Creatinine 0.49 L 0.54 L Estim Creat Clear Calc 111 101 Estimated GFR > 60 > 60 Glucose 88 94 Calculated Osmolality 285 289 Lactic Acid 1.4 Calcium 8.0 L 8.5 Magnesium 1.5 L Total Bilirubin 0.7 0.8 AST 36 46 H ALT 20 22 Alkaline Phosphatase 74 71 Troponin I < 0.012 Total Protein 6.5 7.2 Albumin 3.4 L 3.9 Lipase 191 410 H Urine Color Light yellow Urine Appearance Clear Urine pH 6.0 Ur Specific [place] <= 1.005 L Urine Protein Negative Urine Glucose (UA) Negative Urine Ketones Negative Ur Blood (Man) Negative Urine Nitrate Negative Urine Bilirubin Negative Urine Urobilinogen 0.2 Leukocyte Esterase Rfl Negative Ethyl Alcohol 48 Imaging Radiologist's impression: EXAMINATION: CT abdomen pelvis w con DATE: 09/13/2024 16:22 INDICATION: Abdominal pain TECHNIQUE: Computed tomography (CT) of the abdomen and pelvis was performed with 100 cc Omnipaque 350 intravenous contrast. The dose-length product was 462.14 mGy-cm. Automated exposure control and iterative reconstruction technique were employed. COMPARISON: CT dated 08/13/2024 FINDINGS: Lung bases are unremarkable. Heart size normal. There is cirrhosis of the liver. There are gallstones. No focal hepatic mass is identified. The spleen, pancreas, adrenal glands and left kidney are unremarkable. There is focal cortical thinning/scarring of the right kidney. There is small park bcentimeter cyst. No significant vascular abnormality. No lymphadenopathy. Bladder wall is mildly thickened, possibly due to underdistention or cystitis. Clinically correlate. Nonobstructive bowel gas pattern. No significant vascular abnormality. No lymphadenopathy. Normal appendix. IMPRESSION: 1. No acute abdominal abnormality. 2: Cirrhosis of the liver. 3: Cholelithiasis. 4: Mild bladder wall thickening which may be due to underdistention, although cystitis not excluded. Clinically correlate. DS: Summary Hospital Course Reason for hospitalization: acute pancreatitis Hospital Course: Admission: Latrice Valencia is a 49 year old female Who presented to the emergency room with complaints of severe abdominal pain which started 2 days prior to arrival. Patient reports she does have a past medical history of hypertension and ETOH abuse with cirrhosis and chronic pancreatitis. Patient reported her last drink hours prior to arrival to the emergency room with some nausea vomiting patient states abdominal pain would not improve and she was unable to tolerate any oral intake prior to arrival. in the emergency department patient's labs revealed elevated lipase normal liver enzymes, hypokalemia and dehydration. CT abdomen showed cirrhosis of the liver and cholelithiasis but no acute abdominal abnormalities. patient was admitted to the medical unit for IV hydration and electrolyte replacement with antiemetics and pain management for acute pancreatitis. Patient denied any chest pain, shortness a breath no further nausea or vomiting on assessment and abdominal pain moving Hospital Course: Patient responded well to IV fluid hydration as well as electrolyte placement and antiemetics initiated patient on regular diet she was able to tolerate still with mild abdominal tenderness but lipase back to normal limits. Patient reports she is still drinking at this time noncompliant with home medications educated on possible outcomes continued alcohol abuse and medication noncompliance. patient did report she is following with a hepatobiliary DrValentín in [place] for monitoring of her cirrhosis but I did encourage immediate alcohol cessation. patient's magnesium was 1 point on to discharge gave 2 g and added Mag oxide daily for a prescription. patient ambulatory on own no signs of ETOH withdrawal was discharged home. Status at Discharge Functional status at discharge: independent ambulation Overall status at discharge: patient is back to baseline Time Spent with Patient Time attestation: Total time spent providing and/or coordinating discharge services: Time spent: Greater than 30 minutes DS: Admitting Diagnosis Discharge Date 09/14/2024 Admitting Diagnosis acute pancreatitis DS: Discharge Diagnosis Discharge Diagnosis (1) ETOH abuse: Code(s): F10.10 - Alcohol abuse, uncomplicated Status: Acute (2) Hypertension: Code(s): I10 - Essential (primary) hypertension Status: Acute (3) Hypomagnesemia: Code(s): E83.42 - Hypomagnesemia Status: Acute (4) Acute hypokalemia: Code(s): E87.6 - Hypokalemia Status: Acute (5) Abdominal pain: Qualifiers: Abdominal location: generalized Qualified Code(s): R10.84 - Generalized abdominal pain Code(s): R10.9 - Unspecified abdominal pain Status: Acute (6) Acute alcoholic pancreatitis: Qualifiers: Acute pancreatitis complication: no infection or necrosis Qualified Code(s): K85.20 - Alcohol induced acute pancreatitis without necrosis or infection Code(s): K85.20 - Alcohol induced acute pancreatitis without necrosis or infection Status: Acute (7) GERD (gastroesophageal reflux disease): Code(s): K21.9 - Gastro-esophageal reflux disease without esophagitis Status: Acute Discharge Plan Discharge Attending physician on discharge: Greg Constantino Consulting providers: Holli Sunshine Discharging Clinician: Holli Sunshine Anticipated Discharge Date/Time: 09/14/24 10:56 Patient Disposition: Home Activity: may shower and as tolerated Diet: as tolerated Discharge Instructions: 1). Acute on chronic pancreatitis * recommend immediate alcohol cessation * encourage aggressive hydration * may advance diet as tolerated recommended small meals and bland diet start off with clear liquids and advance as tolerated 2.) low magnesium: * I have included a prescription for Mag oxide daily please take as prescribed 3.) GERD: * at a prescription for pantoprazole and Carafate take as directed How can you care for yourself at home? ? Keep track of any new symptoms or changes in your symptoms. ? Rest until you feel better. ? Be safe with medicines. Take your medicines exactly as prescribed. Call your doctor if you think you are having a problem with your medicine. ? Do not drive after taking a prescription pain medicine. ? Ensure to follow-up with primary care physician as indicated and provide updated medication list provided to you at discharge. When should you call for help? Call 911 anytime you think you may need emergency care. For example, call if: ? You passed out (lost consciousness). Call your doctor now or seek immediate medical care if: ? You have new symptoms like fever, difficulty breathing, Chest pain, vomiting, or rash. ? You have new or different pain. ? You are confused and are having trouble thinking clearly. ? Your symptoms are getting worse. Watch closely for changes in your health, and be sure to contact your doctor if: ? You do not get better as expected. Patient Instructions: Antibiotic Form, Pancreatitis (DC), Cirrhosis of the Liver (DC), Abuse of Alcohol (DC), Hypomagnesemia (DC) Patient Language: Citizen Of [place] Stand Alone Forms: General Discharge Information Follow-up/Referrals: Deshaun,Ruma Aden MD [Primary Care Provider] - 2 weeks Discharge Medications: New ondansetron 4 mg tablet,disintegrating 4 mg PO Q8H PRN (Reason: nausea and vomiting) Qty: 30 0RF magnesium oxide 400 mg magnesium tablet 400 mg PO DAILY Qty: 30 0RF hydrocodone-acetaminophen 5-325 mg tablet 1 tablet PO Q8H PRN (Reason: pain) Qty: 20 0RF pantoprazole 40 mg tablet,delayed release (DR/EC) 40 mg PO HS Qty: 30 0RF sucralfate [Carafate] 100 mg/mL suspension 2 g PO TIDWM Qty: 414 0RF Rx Instructions: Take an hour prior to meal Continued lorazepam [Ativan] 0.5 mg tablet 0.5 mg PO BID PRN (Reason: anxiety) Qty: 20 0RF gabapentin 400 mg capsule 400 mg PO Q8H sertraline 100 mg tablet 100 mg PO Q24H trazodone 150 mg tablet 150 mg PO DAILY hydroxyzine pamoate 25 mg capsule 25 mg PO DAILY Date of admission: 09/13/24 17:32 Primary Care Provider: Deshaun,Ruma Aden Admitting Provider: Greg Constantino Attending physician on admission: Greg Constantino Condition: Stable Quality VTE Prophylaxis VTE prophylaxis: mechanical ordered -Patient's previous records reviewed on admission -ER notes reviewed in detail on admission -discussed all findings and current treatment plan with patient/Family/POA -Consultations reviewed for recommendations -Patient's disposition for safe discharge discussed with employment case manager Dictation performed by [employer] direct speech recognition software, therefore multimedia artist variants and typographical errors may occur. Hospitalist MIPS Advance Care Plan I have confirmed that the patient's Advanced Care Plan is present, code status is documented, or surrogate decision maker is listed in patient medical record.: Yes Medication Reconciliation I have utilized all available resources to obtain, update and review the patients current medications (includes all prescriptions, OTC, herbals, cannabis, and nutritional supplements).: Yes The patient is not eligible for med reconciliation; the patient is in a emergent medical situation where delaying treatment would jeopardize the patients health.: No Heart Failure (Exclusion) Patient has history of Heart Transplant or Left Ventricular Assistive Device?: No IF YES, STOP HERE Heart Failure (Qualifier) Patient has current or prior documentation of LVEF less than or equal to 40%, or mod/servere depressed LVSF?: No IF NO, STOP HERE
[2024-09-14] MEDS: MAGNESIUM SULF 2 GM/WATER 50ML 2 GM/50 ML BAG IVPB (10:58)
--- NOTE | 2024-09-14 13:14 | PC.NURSE ---
Discharge instructions reviewed with patient. All questions answered.
--- NOTE | 2024-09-18 11:24 | PC.NURSE ---
Discharge call back, No number listed in chart.
== END 2024-09-14 13:40 | disposition home or self-care (01) ==
LOC: CHSED 17:25 → CHS2ND 17:42
PROVIDERS: Nurse Practitioner Family; Admitting Provider Internal Medicine; Emergency Provider Emergency Medicine; PCP Family Medicine; Visit Provider Internal Medicine
DX: K85.20 Alcohol induced acute pancreatitis without necrosis or infection (principal); F10.10 Alcohol abuse, uncomplicated; Y90.2 Blood alcohol level of 40-59 mg/100 ml; K70.30 Alcoholic cirrhosis of liver without ascites; K86.1 Other chronic pancreatitis; R10.84 Generalized abdominal pain; E87.6 Hypokalemia; E83.42 Hypomagnesemia; I10 Essential (primary) hypertension; K80.20 Calculus of gallbladder without cholecystitis without obstruction; K21.9 Gastro-esophageal reflux disease without esophagitis; Z79.899 Other long term (current) drug therapy; Z91.148 Patient's other noncompliance with medication regimen for other reason
CPT/HCPCS: 36415; 74177; 80053; 81003; 82077; 83605; 83690; 83735; 84484; 85025; 85055; 85610; 85730; 87040; 93005; 96361; 96374; 96375; 96376; 99285; A9270; J1171; J2270; J2405; J3475; J7030; Q9967

== ENCOUNTER 2024-10-24 11:43 | Emergency (ER) | payer OTHER, SELFPAY ==
--- NOTE | ~2024-10-24 | CT_ITS ---
CT lumbar spine wo con Ordering provider: Johnie Cuenca MD History: 49 years Female with . low back pain . Comparison: None. Technique: CT lumbar spine without contrast. Automated exposure control and iterative reconstruction technique were employed. The dose-length product was 605.33 mGy-cm. FINDINGS: VERTEBRAE: Normal height and alignment. No subluxation or visible acute fracture. DISC SPACES: Well maintained. Bilateral sacroiliac ileitis. T12-L1: No stenosis. L1-L2: No stenosis. L2-L3: No stenosis. Diffuse disc bulge with bilateral narrowing of the foramina associated with nerv e root compression bilaterally. L3-L4: No stenosis. Diffuse disc bulge with bilateral narrowing of the foramina. No definite root com pression seen. L4-L5: No stenosis. Diffuse disc bulge with narrowing of the foramina. No definite root compression seen. L5-S1: No stenosis. Diffuse disc bulge with bilateral narrowing of the foramina and with root compre ssion. PARASPINOUS SOFT TISSUES: Mild atheromatous disease of the abdominal aorta. Tiny calcification in the right kidney suggestive of a stone. IMPRESSION: No acute osseous abnormality. Multilevel disc bulges with intervertebral foraminal narrowing. MRI is better for evaluation. Highly suggestive right kidney stone. Reviewed, dictated and finalized at location A. IMPRESSION: No acute osseous abnormality. Multilevel disc bulges with intervertebral foraminal narrowing. MRI is better f or evaluation. Highly suggestive right kidney stone.
--- NOTE | ~2024-10-24 | CT_ITS ---
Non-contrast Head CT History: Recurrent falls Technique: Axial non-contrast imaging of the brain was performed. Dose reduction technique was used on this scan by utilizing automated exposure control and iterative reconstruction technique. The dose -length product (DLP) was 605.33 mGy-cm. Findings: There is no evidence of intracranial hemorrhage, mass lesion, or acute infarct. Brain par enchyma appears normal. The ventricles and subarachnoid spaces are normal in size. The calvarium ap pears normal. The visualized paranasal sinuses and mastoid air cells are clear. Impression: No significant abnormality seen. Reviewed, dictated and finalized at location . Impression: No significant abnormality seen.
[2024-10-24 11:43] VITALS: BP 145/102; PULSE 74; RESP 16; TEMP 36.4; O2SAT 98
--- OUTSIDE RECORDS SUMMARY | 2024-10-24 12:09 | XMS_ITS ---
Author Organization Unknown Address [address] [place] [phone] Phone Care Team Providers Care Security Expert Name Role Phone SUMANTH Rae Attending Unavailable JEREMY JOLLY CRNA Unavailable AMINTA Mills Primary Unavailable Social History Type Status Start Date End Date Code Code Syst em Smoking History Unknown if ever smoked [address] Smoking History Never smoker (Never Smoked) 334150860 SNOMED CT Sex Female Vital Signs Vital Sign Value Unit Cannon Value Cannon Unit Date/Time Recent/Initial? Code Code System Body Mass Index 24.96 kg/m2 04/12/2024 08:25 Most Recent 54202 -5 LOINC Body Mass Index 24.96 kg/m2 03/27/2024 14:01 Initial 90230 -5 LOINC Systolic Blood Pressure 142 mm[Hg] 04/12/2024 08:26 Initial 8480- 6 LOINC Diastolic Blood Pressure 84 mm[Hg] 04/12/2024 08:26 Initial 8462- 4 LOINC Body Surface Area 1.77 m2 04/12/2024 08:25 Most Recent 3140- 1 LOINC Body Surface Area 1.77 m2 03/27/2024 14:01 Initial 3140- 1 LOINC Height 165.100 0 cm 65.00 in 04/12/2024 08:25 Most Recent 8302- 2 LOINC Height 165.100 0 cm 65.00 in 03/27/2024 14:01 Initial 8302- 2 LOINC O2 Saturation 97 % 2024 08:26 Initial 69287 -5 LOINC Pulse 76.0 /min 04/12/2024 08:26 Initial 8867- 4 LOINC Respiration 12 /min 04/12/19 08:26 Initial 9279- 1 LOINC Temperature 36.5 Mita 97.7 F 04/12/19 08:26 Initial 8310- 5 [facility] Weight 68.04 kg 150.00 lbs 04/12/2024 08:25 Most Recent 92046 -7 [facility] Weight 68.04 kg 150.00 lbs 03/27/2024 14:01 Initial 49939 -7 [facility] Medications Medication Start Date End Date Route Frequency Dose Code Code System Medication Instructions Home Meds Acamprosate Calcium 333MG Oral Tablet, Delayed Release 04/12/2024 06/29/2024 ORAL THREE TIMES A DAY 2 TABLET 853810 RxNorm TAKE 2 TABLET ORAL THREE TIMES A DAY Ativan 0.5MG Oral Tablet 04/12/2024 06/29/2024 ORAL ONCE A DAY 0.5 MILLIGRAMS 189980 RxNorm TAKE 0.5 MILLIGRAMS ORAL ONCE A DAY Gabapentin 400MG Oral Capsule 04/12/2024 Unknown ORAL THREE TIMES A DAY 400 MILLIGRAMS 002893 RxNorm TAKE 400 MILLIGRAMS ORAL THREE TIMES A DAY Meloxicam 15MG Oral Tablet 04/12/2024 06/29/2024 ORAL ONCE A DAY 15 MILLIGRAMS 984741 RxNorm TAKE 15 MILLIGRAMS ORAL ONCE A DAY Nabumetone 500MG Oral Tablet 04/12/2024 06/29/2024 ORAL TWICE A DAY 500 MILLIGRAMS 722694 RxNorm TAKE 500 MILLIGRAMS ORAL TWICE A DAY Ondansetron 4MG Oral Tablet, Disintegrating 04/12/2024 06/29/2024 ORAL NEEDED 4 MILLIGRAMS 982161 RxNorm TAKE 4 MILLIGRAMS ORAL NEEDED Prazosin HCl 1MG Oral Capsule 04/12/2024 06/29/2024 ORAL AT BEDTIME 1 MILLIGRAMS 206634 RxNorm TAKE 1 MILLIGRAMS ORAL AT BEDTIME Sertraline HCl 150 MG Oral Capsule 04/12/2024 06/29/2024 ORAL ONCE A DAY 150 MG 985222 RxNorm TAKE 150 MG ORAL ONCE A DAY traZODone hydrochloride 100MG Oral Tablet 04/12/2024 06/29/2024 ORAL AT BEDTIME 100 MILLIGRAMS 635068 RxNorm TAKE 100 MILLIGRAMS ORAL AT BEDTIME Assessment You had the following problems:ALCOHOLIC CIRRHOSIS OF LIVER WITHOUT ASCITES Hospital Discharge Instructions Should you have any questions prior to discharge, please contact a member of your healthcare team. If you have left the hospital and have any questions, please contact your primary care physician. Reason For Referral No Data Found Procedures Procedure Name Date Status Code Code Syste m completed 76071752 SNOMEDCT Colonoscopy completed 56841928 SNOMEDCT Esophagogastroduodenoscopy, flexible, transoral; diagnostic, including col 04/12/2024 completed 56452 CPT Esophagogastroduodenoscopy completed 20576844 SNOMEDCT Laparoscopy completed 31481929 SNOMEDCT Hysterectomy completed 517970257 SNOMEDCT Anesthesia for upper gastroi ntestinal endoscopic procedures, endoscope int 04/12/2024 completed 29067 CPT Problems Problem Start Date Resolved Date Status Code Code System ALCOHOLIC CIRRHOSIS OF LIVER WITHOUT ASCITES active 204198018 SNOMED-CT Allergies and Adverse Reactions Allergy Substance Reaction Severity Start Date Concern Status Co de Code System No Known Drug Allergies Active 473455818 SNOMED-CT Plan of Treatment Colonoscopy 07/03/2024 Encounters Encounter Diagnosis Start Date Code Code Sys tem Unspecified cirrhosis of liver 04/12/2024 SNOMED-CT Personal Care Team Section Performer Name Performer Role Active Date Inactive LELIA Pan PCP - Primary care physician 2024-03 Procedures Notes
--- OUTSIDE RECORDS SUMMARY | 2024-10-24 12:09 | XMS_ITS ---
Author Organization Unknown Address [address] [place] [phone] Phone Care Team Providers Care Airplane Pilot Helper Name Role Phone JOHN Jean Attending Unavailable AMINTA Mills Primary Unavailable Results FIBROSURE - Collect Date/Jhonatan e: 05/14/2024 10:20 [facility] ID: [id number] [place] [address], [id number] LOINC: Test Value Unit Reference Range Code Code System Flag TING? _YES Fibrosis Score 0.22 0.00-0.21 54841-4 LOINC H Fibrosis Stage F0-F1 06823-9 LOINC Necroinflammat ActivityScore 0.16 0.00-0.17 87141-2 LOINC Necroinflammat ActivityGrade A0-No activity 94296-9 LOINC Methodology: COMMENT 20549-2 LOINC Alpha 2-Macroglobulins,Qn 243 903-139 6849-8 LOINC Haptoglobin 110 42-296 4542-7 LOINC Apolipoprotein A-1 195 096-222 6811-7 LOINC Bilirubin, Total 0.2 0.0-1.2 1975-2 LOINC GGT 310 0-60 2324-2 LOINC H ALT (SGPT) P5P 34 0-40 1743-4 LOINC Interpretations: COMMENT Fibrosis Scoring: COMMENT Necroinflamm ActivityScoring: COMMENT Limitations: COMMENT 8251-1 LOINC Comment: COMMENT 87432-3 LOINC Social History Type Status Start Date End Date Code Code Syst em Smoking History Unknown if ever smoked [address] Smoking History Never smoker (Never Smoked) 468080361 SNOMED CT Sex Female Medications Medication Start Date End Date Route Frequency Dose Code Code System Medication Instructions Home Meds Acamprosate Calcium 333MG Oral Tablet, Delayed Release 04/12/2024 06/29/2024 ORAL THREE TIMES A DAY 2 TABLET 441410 RxNorm TAKE 2 TABLET ORAL THREE TIMES A DAY Ativan 0.5MG Oral Tablet 04/12/2024 06/29/2024 ORAL ONCE A DAY 0.5 MILLIGRAMS 611111 RxNorm TAKE 0.5 MILLIGRAMS ORAL ONCE A DAY Gabapentin 400MG Oral Capsule 04/12/2024 Unknown ORAL THREE TIMES A DAY 400 MILLIGRAMS 655786 RxNorm TAKE 400 MILLIGRAMS ORAL THREE TIMES A DAY Meloxicam 15MG Oral Tablet 04/12/2024 06/29/2024 ORAL ONCE A DAY 15 MILLIGRAMS 228624 RxNorm TAKE 15 MILLIGRAMS ORAL ONCE A DAY Nabumetone 500MG Oral Tablet 04/12/2024 06/29/2024 ORAL TWICE A DAY 500 MILLIGRAMS 157216 RxNorm TAKE 500 MILLIGRAMS ORAL TWICE A DAY Ondansetron 4MG Oral Tablet, Disintegrating 04/12/2024 06/29/2024 ORAL NEEDED 4 MILLIGRAMS 707086 RxNorm TAKE 4 MILLIGRAMS ORAL NEEDED Prazosin HCl 1MG Oral Capsule 04/12/2024 06/29/2024 ORAL AT BEDTIME 1 MILLIGRAMS 961949 RxNorm TAKE 1 MILLIGRAMS ORAL AT BEDTIME Sertraline HCl 150 MG Oral Capsule 04/12/2024 06/29/2024 ORAL ONCE A DAY 150 MG 715626 RxNorm TAKE 150 MG ORAL ONCE A DAY traZODone hydrochloride 100MG Oral Tablet 04/12/2024 06/29/2024 ORAL AT BEDTIME 100 MILLIGRAMS 213660 RxNorm TAKE 100 MILLIGRAMS ORAL AT BEDTIME Assessment You had the following problems:ALCOHOLIC CIRRHOSIS OF LIVER WITHOUT ASCITES Hospital Discharge Instructions Should you have any questions prior to discharge, please contact a member of your healthcare team. If you have left the hospital and have any questions, please contact your primary care physician. Reason For Referral No Data Found Problems Problem Start Date Resolved Date Status Code Code System ALCOHOLIC CIRRHOSIS OF LIVER WITHOUT ASCITES active 128933329 [facility] Allergies and Adverse Reactions Allergy Substance Reaction Severity Start Date Concern Status Co de Code System No Known Drug Allergies Active 739368133 SNOMED-CT Plan of Treatment Colonoscopy 07/03/2024 Encounters Encounter Diagnosis Start Date Code Code Sys tem Alcoholic cirrhosis of liver without ascites SNOMED-CT Personal Care Team Section Performer Name Performer Role Active Date Inactive LELIA Pan PCP - Primary care physician 2024-03
--- OUTSIDE RECORDS SUMMARY | 2024-10-24 12:09 | XMS_ITS ---
Author Organization Unknown Address [address] [place] [address] [phone] Phone Care Team Providers Care English Language Learner Tutor Name Role Phone SUMANTH Rae Attending Unavailable JEREMY JOLLY CRNA Unavailable AMINTA Mills Primary Unavailable Social History Type Status Start Date End Date Code Code Syst em Smoking History Unknown if ever smoked [address] Smoking History Never smoker (Never Smoked) 910438512 SNOMED CT Sex Female Vital Signs Vital Sign Value Unit Tiline Value Tiline Unit Date/Time Recent/Initial? Code Code System Body Mass Index 24.63 kg/m2 07/03/2024 07:51 Most Recent 07528 -5 LOINC Body Mass Index 24.63 kg/m2 06/25/2024 14:12 Initial 28500 -5 LOINC Systolic Blood Pressure 161 mm[Hg] 07/03/2024 08:02 Initial 8480- 6 LOINC Diastolic Blood Pressure 83 mm[Hg] 07/03/2024 08:02 Initial 8462- 4 LOINC Body Surface Area 1.75 m2 07/03/2024 07:51 Most Recent 3140- 1 LOINC Body Surface Area 1.75 m2 06/25/2024 14:12 Initial 3140- 1 LOINC Height 165.100 0 cm 65.00 in 07/03/2024 07:51 Most Recent 8302- 2 LOINC Height 165.100 0 cm 65.00 in 06/25/2024 14:12 Initial 8302- 2 LOINC O2 Saturation 96 % 2024 08:02 Initial 90478 -5 LOINC Pulse 60.0 /min 07/03/2024 08:02 Initial 8867- 4 LOINC Respiration 20 /min 07/04/19 08:02 Initial 9279- 1 LOINC Temperature 36.3 Mita 97.3 F 07/04/19 08:02 Initial 8310- 5 LOINC Weight 67.13 kg 148.00 lbs 07/03/2024 07:51 Most Recent 62903 -7 LOINC Weight 67.13 kg 148.00 lbs 06/25/2024 14:12 Initial 94469 -7 LOINC Medications Medication Start Date End Date Route Frequency Dose Code Code System Medication Instructions Home Meds Gabapentin 400MG Oral Capsule 04/12/2024 Unknown ORAL THREE TIMES A DAY 400 MILLIGRAMS 798523 RxNorm TAKE 400 MILLIGRAMS ORAL THREE TIMES A DAY Assessment You had the following problems:ALCOHOLIC CIRRHOSIS OF LIVER WITHOUT ASCITES Hospital Discharge Instructions Should you have any questions prior to discharge, please contact a member of your healthcare team. If you have left the hospital and have any questions, please contact your primary care physician. Reason For Referral No Data Found Procedures Procedure Name Date Status Code Code Syste m Colorectal cancer screening; colonoscopy on individual not meeting criteri 07/03/2024 completed G0121 C PT Anesthesia for lower intesti nal endoscopic procedures, endoscope introduce 07/03/2024 completed 96526 CPT Problems Problem Start Date Resolved Date Status Code Code System ALCOHOLIC CIRRHOSIS OF LIVER WITHOUT ASCITES active 963341132 SNOMED-CT Allergies and Adverse Reactions Allergy Substance Reaction Severity Start Date Concern Status Co de Code System No Known Drug Allergies Active 078614561 SNOMED-CT Plan of Treatment Colonoscopy 07/03/2024 Encounters Encounter Diagnosis Start Date Code Code Sys tem Encounter for screening for malignant neoplasm of colo n 07/03/2024 SNOMED-CT Personal Care Team Section Performer Name Performer Role Active Date Inactive LELIA Pan PCP - Primary care physician 2024-03 Procedures Notes
--- OUTSIDE RECORDS SUMMARY | 2024-10-24 12:10 | XMS_ITS | Clinical Summary ---
Author Organization [facility] [place] Address Formerly [facility], [id number] [place] [address] Care Team Providers Care Ice Bag Assembler Name Role Phone Ruma Meade MD Primary Care Provider [phone] Allergies No known active allergies Medications gabapentin (NEURONTIN) 300 MG capsule Take 400 mg by mouth 3 (three) times daily. 11/03/2023 Active Active Problems Problem Noted Date Diagnosed Date Alcoholic pancreatitis (HHS/HCC) 01/13/2023 Pancreatitis (HHS/HCC) 01/11/2023 Family History Relation Status Comments Father Unknown [...] place to sleep or slept in a fpc (including now)? Yes 01/11/2023 Comments No Sex and Gender Information Value Date Recorded Sex Assigned at Female 05/25/2024 11:14 AM EVENT COORDINATOR Legal Sex Female 2:39 PM CDT Gender Identity Not on file Sexual Orientation Not on file Last Filed Vital Signs Vital Sign Reading Time Taken Comments Blood Pressure 139/79 03/18/2024 4:25 PM EVENT COORDINATOR Pulse 75 03/18/2024 4:25 PM EVENT COORDINATOR Temperature 36.4 C (97.5 F) 03/18/2024 3:16 PM EVENT COORDINATOR Respiratory Rate 18 03/18/2024 4:25 PM EVENT COORDINATOR Oxygen Saturation 98% 03/18/2024 4:25 PM EVENT COORDINATOR Inhaled Oxygen Concentration - - Weight 68 kg (150 lb) 03/18/2024 3:16 PM EVENT COORDINATOR Height 162.6 cm (5' 4) 03/18/2024 3:16 PM EVENT COORDINATOR Body Mass Index 25.75 03/18/2024 3:16 PM EVENT COORDINATOR Plan of Treatment Health Maintenance Due Date [...] Procedure Name Priority Date/Time Associated Diagnosis Comments MG SCREENING W BIRGIT LUCIAN DIGI Routine 03/29/2024 10:02 AM EVENT COORDINATOR Visit for screening mammogram from Last 3 Months or Most Recently Relevant to Health Maintenance Results * MG SCREENING W BIRGIT LUCIAN DIGI (03/29/2024 10:02 AM EVENT COORDINATOR) Anatomical Region Laterality Modality Breast Bilateral Mammography 03/29/2024 11:5 4 AM EVENT COORDINATOR Impressions 03/29/2024 11:55 AM EVENT COORDINATOR IMPRESSION: No mammographic evidence of malignancy. Recommendation: 1: Routine Screening Bilateral in 1 Year Assessment: ACR BI-RADS 2 - BENIGN FINDING(S) Ordered By: BLADIMIR LATHAM Interpreted By: Varun Quevedo MD, 03/29/2024 11:54 AM Narrative 03/29/2024 11:55 AM EVENT COORDINATOR [address] [place] [address] Examination: Digital screening mammogram with CAD. Clinical [...] followup in one year would seem adequate. Bladimir Latham MD MAMMO Final Resul t from Last 3 Months or Most Recently Relevant to Health Maintenance Insurance MEDICAID [employer] Advance Directives * Full Code (Latest Code Status on File) Date Activated Date Inactivated Comments 01/11/2023 7:19 PM 01/14/2023 10:44 PM Care Teams Ice Bag Assembler Relationship Specialty Start Date End Date Ruma Meade MD [address] [place] [phone] PCP - General FAMILY PRACTICE 03/18/24
--- OUTSIDE RECORDS SUMMARY | 2024-10-24 12:10 | XMS_ITS | Patient Health Record ---
Author Organization [facility] Address [address] [place] [address] Care Team Providers Care Business Unit Leader Name Role Phone SagarHolli Primary Care Provider [phone] Chanel Baires Unavailable [phone] Lien Strong Unavailable [phone] Leonila Hinton Unavailable [phone] Ana Zafar Unavailable [phone] Lesly Valenzuela Unavailable Lien Higuera Unavailable [phone] Allergies Allergen (clinical drug ingredient) Drug/Non Drug Allergy documented on EMR Reaction Allergy Type Onset Date Status No Known Drug Allergy Unknown Drug Allergy Active Results Component Value Reference Range Notes Breathalyzer Reviewed date:09/27/2024 03:16:03 PM Interpretation: Performing Lab: Notes/Report: DENILSON 0.000 Test, Urine Reviewed date:09/27/2024 03:19:01 PM Interpretation: Performing Lab: Notes/Report: Test, Urine neg Negative - Negative QuantiFERON-TB Gold Plus ([id number]) Reviewed date:10/03/2024 06:57:06 AM Interpretation:Normal [facility]forming Lab:[facility], [address] [facility], [place], Phone - [phone], Director - [facility] [place] Notes/Report: QuantiFERON Incubation Incubation performed. QuantiFERON-TB Gold Plus Negative Negative No response to M tuberculosis antigens detected. Infection with M tuberculosis is unlikely, but high risk individuals should be considered for additional testing (ATS/IDSA/CDC Clinical Practice Guidelines, 2017). The reference range is an Antigen minus Nil result of <0.35 IU/mL. Chemiluminescence immunoassay methodology QuantiFERON Criteria QuantiFERON-TB Gold Plus is a qualitative indirect test for M tuberculosis infection (including disease) and is intended for use in conjunction with risk assessment, radiography, and other medical and diagnostic evaluations. The QuantiFERON-TB Gold Plus result is determined by subtracting the Nil value from either TB antigen (Ag) value. The Mitogen tube serves as a control for the test. QuantiFERON TB1 Ag Value 0.06 QuantiFERON TB2 Ag Value 0.06 QuantiFERON Nil Value 0.05 QuantiFERON Mitogen Value >10.00 12 Panel Urine Drug Screen Reviewed date:09/27/2024 03:18:08 PM Interpretation: Performing Lab: Notes/Report: THC pos RAMYA neg MOP (OPI) negn AMP neg MET neg BAR neg BZO pos MDMA neg MTD neg OXY neg PCP neg BUP neg HIV Screen *HIV 1, 2 Ab, p24 Ag ([id number]) Reviewed date:10/03/2024 06:57:06 AM Interpretation:Normal Performing Lab:[facility] [place], [address] [facility] ([facility]3], Phone - [phone], Director - [facility] Notes/Report: HIV Ab/p24 Ag Screen Non Reactive Non Reactive HIV-1/HIV-2 antibodies and HIV-1 p24 antigen were NOT detected. There is no laboratory evidence of HIV infection. HIV Negative CMP 14 Comprehensive Metabol ic Panel* Reviewed date:10/03/2024 06:57:06 AM Interpretation: Performing Lab:[facility] [place], [address] [facility]3], Phone - [phone], Director - [facility] Notes/Report: Glucose 86 70-99 mg/dL BUN 23 6-24 mg/dL Creatinine 0.74 0.57-1.00 mg/dL eGFR 98 >59 mL/min/1.73 BUN/Creatinine Ratio 31 9-23 Sodium 139 134-144 mmol/L Potassium 5.2 3.5-5.2 mmol/L Chloride 103 96-106 mmol/L Carbon Dioxide, Total 21 20-29 mmol/L Calcium 9.5 8.7-10.2 mg/dL Protein, Total 7.6 6.0-8.5 g/dL Albumin 4.2 3.8-4.9 g/dL Globulin, Total 3.4 1.5-4.5 g/dL Bilirubin, Total 0.4 0.0-1.2 mg/dL Alkaline Phosphatase 92 44-121 IU/L AST (SGOT) 37 0-40 IU/L ALT (SGPT) 23 0-32 IU/L Test, Urine Reviewed date:06/14/2024 04:06:41 PM Interpretation: [...] Duration) Notes Start Date End Date Status Ondansetron 4 MG Oral; Duration: 4 Days Not-Taking hydrOXYzine HCl 50 MG 0.5 to 1 tablet as needed Orally 3 times a day; Duration: 30 days Active LORazepam 0.5 MG 1 tablet as needed Oral Once a day; Duration: 30 days As needed 09/28/2024 Active Vivitrol 380 MG as directed Intramuscular every 28 days; Duration: 28 days 06/13/2024 Not-Phil ng traZODone HCl 150 MG 1 tablet at bedtime Oral at bedtime; Duration: 30 days Active Zoloft 100 MG 1 tablet Orally Once a day; Duration: 30 days Active MiraLax 17 GM/SCOOP 1 scoop mixed with 8 ounces of fluid Orally Once a day; Duration: 30 days Active Magnesium Oxide 400 MG 1 tablet with katalina d Orally Once a day; Duration: 7 days Not-Taking Pantoprazole Sodium 40 MG 1 tablet 1/2 to 1 hour before morning meal Oral Once a day; Duration: 7 days Active Gabapentin 100 MG 1 capsule Orally Onc e a day; Duration: 30 day(s) Not-Hugo ing Prazosin HCl 2 MG 1 capsule Oral at bedtime; Duration: 30 days Active Pantoprazole Sodium 40 MG Oral; Duration: 30 Days Acti ve Melatonin 5 MG 1 tablet at bedtime as needed Orally Once a day; Duration: 30 days 09/27/2024 Not-Takin g Gabapentin 400 MG 1 capsule Orally thr ee times daily; Duration: 7 days Active Mupirocin 2 % External; Duration: 11 Days Not-Taking Multi Vitamin - 1 tablet Orally Once a day; Duration: 30 days 09/27/2024 Active QUEtiapine Fumarate 25 MG 1 tablet Oral at bedtime; Duration: 30 days Active Creon [id number] UNIT as directed Orally 3 times a day; Duration: 7 days Active Social History Tobacco Use: Social History Observation Description Date Details (start date - stop date) Never Smoker NA - NA Sex Assigned At : Social History Observation Description Sex Assigned At Female PRAPARE Question Answer Notes Date Completed/Updated: 09/27/2024 What is your current housing situation? I do not have housing (staying with others, in a hotel, in a fpc, living outside on the street, on a [...] phone, visiting friends or family, going to anglican or club meetings) 1 or 2 times a week How stressed are you? Stress is when someone feels tense, nervous, anxious, or can\t sleep at night because their mind is troubled Very much In the past year have you sp ent more than 2 nights in a row in a prison, mcc, assisted center, or juvenile correctional facility? No Are you a refugee? I choose not to answer this q uestion What country are you from? I choose not to answe r this question Do you feel physically and e motionally safe where you currently live? No In the past year, have you b een afraid of your partner or ex-partner? Yes PRAPARE Score: 13 Enabling Services Provided? Yes Please specify Case Management Asse ssment First Visit Tobacco Control (Standard) Question Answer Notes Tobacco use: Nonsmoker Problems Problem Type SNOMED Code ICD Code Onset Dates Problem Status W/U Status Risk Notes Problem Anxiety disorder (935298045) Anxiety disorder, unspecified (F41.9) 09/29/19 Active confirmed Problem Borderline personality disorder (86908940) Borderline personality disorder (F60.3) 09/29/19 Active confirmed Problem General examination of patient (701201897) Routine general medical examination at a health care facility (Z00.00) Active confirmed Problem Bipolar disorder (78472839) Bipolar disorder (F31.9) Active confirmed Self reported diagnosis. Scheduled for full psychiatric eval. Problem Overweight (347066753) Over weight (E66.3) Active confirmed Problem Insomnia due to mental disorder (06435326) Insomnia due to mental disorder (F51.05) 09/29/19 Active confirmed Problem Alcohol use disorder (1108139006) Alcohol use disorder (F10.99) 09/29/19 Active confirmed Problem Nightmares (325005428) Nightmares (F51.5) 09/29/19 Active confirmed Problem Overweight (929249308) Overweight (BMI 25.0-29.9) (E66.3) Active confirmed Problem Adjustment disorder (98523173) Trauma and stressor-relat ed disorder (F43.9) 09/29/19 Active confirmed vs PTSD Vital Signs Heart Rate 78 /min 10/03/2024 Temperature 98.0 degrees Fahrenheit 10/03/2024 Respiratory Rate 18 /min 10/03/2024 Blood pressure diastolic 74 mm Hg 09/27/2024 Oximetry 98 % 10/03/2024 Height 65 in 10/03/2024 Blood pressure systolic 110 mm Hg 09/27/2024 Weight 162.0 lbs 10/03/2024 BMI 26.96 kg/m2 10/03/2024 Encounters Encounter Location Date Provider Diagnosis Formerly [facility] [address] [place] [address] 06/12/2024 Lien Higuera ETOH abuse F10.10 and Bipolar disorder F31.9 Formerly [facility] [address] [place] [address] 06/12/2024 Holli Keith Adult general medical exam Z00.00 ; Nutritional counseling Z71.3 and ETOH abuse F10.10 Formerly [facility] [address] [place] [address] 06/13/2024 Chanel Baires Alcohol use disorder F10.99 ; Overweight (BMI 25.0-29.9) E66.3 and Nutritional counseling Z71.3 [place] [address], [place] [address] 06/13/2024 Lesly Valenzuela Bipolar disorder F31.9 and Alcohol use disorder F10.99 Formerly [facility] [address] [place] [address] 09/27/2024 Chanel Baires Routine general medical examination at a health care facility Z00.00 and Over weight E66.3 Formerly [facility] [address] [place] [address] 09/27/2024 Lien Strong [place] [address] 09/28/2024 Ana Zafar Trauma and stressor-related disorder F43.9 ; Anxiety disorder, unspecified F41.9 ; Alcohol use disorder F10.99 ; Borderline personality disorder F60.3 ; Nightmares F51.5 and Insomnia due to mental disorder F51.05 Formerly [facility] [address] [facility] [place] [address] 10/03/2024 Leonila Hinton Over weight E66.[address] [place] [address] 06/14/2024 Ana Zafar Assessments Encounter Date Diagnosis [...] reported diagnosis. Scheduled for full psychiatric eval. 09/27/2024 Routine general medical examination at a health care facility (ICD-10 - Z00.00) Admit to the Mental Health/Crisis Residential Unit and initiate standing/protocol orders: The following PRN medications may be self-administered by patients under the supervision of approved staff or administered by nursing staff: Ibuprofen 200mg, 2-4 tablets by mouth (with food) every 6 hours as needed for pain (unless on lithium). (NOTE: Ibuprofen and acetaminophen may be given together, but alternating is recommended for continuous pain relief. Guaifenesin 400 mg, 1 tablet by mouth every four hours as needed for cough and chest congestion (take with large glass of water). Loratadine 10 mg, 1 tablet by mouth daily as needed for allergies, watery itchy eyes, or sinus drainage. Throat Lozenges, up to 4 tablets by mouth every three to four hours as needed for sore throat. Antacid tablets, 1-2 tablets by mouth every one to two hours as needed for indigestion or heart burn. If the client prefers liquid, could use: Liquid Antacid : 1 ounce by mouth up to four times daily as needed for indigestion or heartburn Omeprazole 20mg, 1 capsule by mouth once daily for 14 days for frequent heartburn (frequent heartburn is more than 2 episodes per week). Do not exceed 14 days. Do not give to client already taking a proton-pump inhibitor: esomeprazole (Nexium), lansoprazole (Prevacid), pantoprazole (Protonix), rabeprazole (Aciphex), dexlansoprazole (Dexilant) Zofran ODT disintegrating (under the tongue) 4 mg, 1-2 tablets every 8 hours as needed for nausea/vomiting. Milk of Magnesia (MOM): 1 ounce (30 milliliters) by mouth every day as needed for constipation. OR Miralax: Stir and fully dissolve 17 grams (1 packet or 1 capful to measured line) in any 4 to 8 ounces of beverage then drink once daily for constipation. Do not use for more than 7 days. OR Docusate 100 mg, 1 capsule twice daily as needed for constipation Hydrocortisone 1% Cream, apply topically (to the skin) to the affected area up to three times daily as needed for itching or inflammation (avoid eyes and genitals). 2% Antifungal Cream, apply topically (to the skin) as directed as needed to affected areas for athlete's foot or jock itch. Triple Antibiotic Ointment, apply topically (to the skin) up to three times daily as needed for minor cuts and scrapes. Carmex or Chapstick, apply topically (to the skin) as needed for chapped lips and skin. Orajel, apply to affected areas as needed for mouth or tooth pain. Lubricating Eye Drops, instill 1-2 drops to the affected eye(s) as needed for dry/irritated eye(s). Hemorrhoid medications, apply to affected area according to directions as needed for hemorrhoid discomfort and itch. Nix (Permethrin 1%) cream 2 ounces, apply topically (to the skin) as directed as needed for head lice. Sunscreen 30 SPF, Apply to exposed skin prior to exposure to sun. The following PRN medications must be approved by nursing staff before self-administratio n by patients: Diphenhydramine 25 mg, 2 tablets by mouth every 4 hours as needed for allergic reaction or itchy rash. Caution: Do not use hydroxyzine within 4 hours of diphenhydramine and vice versa. Loperamide 2 mg capsules, may give two capsules by mouth for the initial dose, followed by one capsule up to 3 times a day as needed for diarrhea. Acetaminophen 500 mg, 1 - 2 tablets by mouth every six hours as needed for pain. (NOTE: Ibuprofen and acetaminophen may be given together, but alternating is recommended for continuous pain relief). Oxygen-May administer oxygen 2L/min via nasal cannula if O2 saturation is less than 92%, AND client complains of shortness of breath. Target O2 saturation is 94-98%. Caution: Remember too much oxygen can be detrimental to a client with COPD. Oxygen is a drug and should be delivered by trained staff only. Nurses may remove superficial splinters and sutures from skin lacerations. May apply gauze or bandages to any weeping wounds. Contact nursing if there is pus, a foul odor, increased pain/redness/swell ing, or if soaking through bandages. 09/28/2024 Anxiety disorder, unspecified (ICD-10 - F41.9) 09/28/2024 Trauma and stressor-relate d disorder (ICD-10 - F43.9) vs PTSD 10/03/2024 Over weight (ICD-10 - E66.3) 09/28/2024 Alcohol use disorder (ICD-10 - F10.99) 09/27/2024 Over weight (ICD-10 - E66.3) 06/13/2024 Alcohol use disorder (ICD-10 - F10.99) 06/12/2024 ETOH abuse (ICD-10 - F10.10) 06/13/2024 Nutritional counseling (ICD-10 - Z71.3) 09/28/2024 Borderline personality disorder (ICD-10 - F60.3) 09/28/2024 Nightmares (ICD-10 - F51.5) 09/28/2024 Insomnia due to mental disorder (ICD-10 - F51.05) Today's visit: Patient is a 49-year-old male who presents for a psychiatric evaluation over [facility] and is located in [place]. PHQ-9 score of 24, TR-7 score of 21, MDQ with 6 yes. Currently prescribed Prazosin 2 mg, Trazodone 150 mg, Zoloft 100 mg, Lorazepam 0.5 mg daily (last fill 08/21/24), Hydroxyzine 25 mg daily, and Seroquel 25 mg for the reported diagnoses of borderline personality disorder, PTSD, anxiety, and depression. Currently, on the crisis unit admitted yesterday with intent to move to [facility]. Report severe alcohol use disorder with recent detoxification. They report inadequate control of anxiety symptoms with current medications, will increase hydroxyzine to 25-50 mg three times daily as needed. All other medications will remain unchanged at this time. No acute safety concerns the time of this appt, he is agreeable to treatment plan and was provided an opportunity to ask questions. May self-administer medications or be administered own oral medications per [facility] protocols. Provided informed consent with understanding of side effects, adverse effects, risks and benefits as well as alternative treatments as previously discussed and with the above recommended medications & other aspects of the treatment program. Agrees to return sooner if symptoms worsen or suicidal or homicidal ideations occur. 06/12/2024 Other Clinician met w [facility] client to assess needs for residential services. Clinician gathered information regarding historical presentation of mental health and substance use symptoms including withdrawal, HIV Risk assessment, psychiatric hospitalization history and presenting concern. Clinician conducted PHQ9 and CSSRS assessments as well as social drivers of health screening for the purposes of identifying additional service needs. 06/12/2024 Other Continue treatment as recommended by [facility]'s Crisis Residential Unit staff. Encouraged patient to obtain routine medical care with patient's own primary care provider or establish as a patient at [facility] if no current primary care provider. 06/13/2024 Other Discussed medication side effects, adverse effects, risks, benefits, as well as interactions. Encouraged non-use of alcohol. Has Vivitrol alert bracelet, necklace and wallet card. Recommended participation in recovery groups/counseling services. Agrees to contact office with questions or concerns. Patient may self-administe r their own medications or may self-administe r their own oral medications per [facility] Protocol. 09/27/2024 Other Clinician met w [facility] client to assess needs for residential services. Clinician gathered information regarding historical presentation of mental health and substance use symptoms including withdrawal, HIV Risk assessment, psychiatric hospitalization history and presenting concern. Clinician conducted PHQ9 and CSSRS assessments as well as social drivers of health screening for the purposes of identifying additional service needs. Plan Of Treatment No Information Insurance Providers Payer Name Payer Address Payer Phone Subscriber Number Group Number Insured Name Patient Relationship to Insured Coverage Start Date Coverage End Date [employer] [facility] [address] [place] [address] [id number] Latrice Valencia Self - patient is the insured 3 [employer] Better [facility] [address] [address] [place] [address] [id number] Latrice Valencia Self - patient is the insured 5 [employer] Better [facility] [address] [place] [address] [id number] Latrice Valencia Self - patient is the insured 3 Medications Administered Medication Instructions Date of Administration Dosage Notes Vivitrol 06/13/2024 380 mg Sima Pete 06/13/2024 03:34:51 PM [employer] > Intramuscular injection administered into the R gluteal area. Patient tolerated the injection well. 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
--- OUTSIDE RECORDS SUMMARY | 2024-10-24 12:10 | XMS_ITS ---
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 Role Phone JOHN Jean Attending Unavailable AMINTA Mills Primary Unavailable Social History Type Status Start Date End Date Code Code Syst em Smoking History Unknown if ever smoked [id number] Smoking History Never smoker (Never Smoked) 594202059 SNOMED CT Sex Female Medications Medication Start Date End Date Route Frequency Dose Code Code System Medication Instructions Home Meds Acamprosate Calcium 333MG Oral Tablet, Delayed Release 04/12/2024 06/29/2024 ORAL THREE TIMES A DAY 2 TABLET 154163 RxNorm TAKE 2 TABLET ORAL THREE TIMES A DAY Ativan 0.5MG Oral Tablet 04/12/2024 06/29/2024 ORAL ONCE A DAY 0.5 MILLIGRAMS 309006 RxNorm TAKE 0.5 MILLIGRAMS ORAL ONCE A DAY Gabapentin 400MG Oral Capsule 04/12/2024 Unknown ORAL THREE TIMES A DAY 400 MILLIGRAMS 668744 RxNorm TAKE 400 MILLIGRAMS ORAL THREE TIMES A DAY Meloxicam 15MG Oral Tablet 04/12/2024 06/29/2024 ORAL ONCE A DAY 15 MILLIGRAMS [id number] RxNorm TAKE 15 MILLIGRAMS ORAL ONCE A DAY Nabumetone 500MG Oral Tablet 04/12/2024 06/29/2024 ORAL TWICE A DAY 500 MILLIGRAMS 803243 RxNorm TAKE 500 MILLIGRAMS ORAL TWICE A DAY Ondansetron 4MG Oral Tablet, Disintegrating 04/12/2024 06/29/2024 ORAL NEEDED 4 MILLIGRAMS 449196 RxNorm TAKE 4 MILLIGRAMS ORAL NEEDED Prazosin HCl 1MG Oral Capsule 04/12/2024 06/29/2024 ORAL AT BEDTIME 1 MILLIGRAMS 599856 RxNorm TAKE 1 MILLIGRAMS ORAL AT BEDTIME Sertraline HCl 150 MG Oral Capsule 04/12/2024 06/29/2024 ORAL ONCE A DAY 150 MG [id number] RxNorm TAKE 150 MG ORAL ONCE A DAY traZODone hydrochloride 100MG Oral Tablet 04/12/2024 06/29/2024 ORAL AT BEDTIME 100 MILLIGRAMS 487332 RxNorm TAKE 100 MILLIGRAMS ORAL AT BEDTIME [...] ALCOHOLIC CIRRHOSIS OF LIVER WITHOUT ASCITES active 406062057 SNOMED-CT Allergies and Adverse Reactions Allergy Substance Reaction Severity Start Date Concern Status Co de Code System No Known Drug Allergies Active 413372459 SNOMED-CT Plan of Treatment Colonoscopy 07/03/2024 Encounters Encounter Diagnosis Start Date Code Code Sys tem Alcoholic cirrhosis of liver without ascites SNOMED-CT Personal Care Team Section Performer Name Performer Role Active Date Inactive LELIA Pan PCP - Primary care physician 2024-03
--- OUTSIDE RECORDS SUMMARY | 2024-10-24 12:11 | XMS_ITS | Clinical Summary ---
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 Hysterectomy. MSK: Ukst-go-mvjxxapc disc disease and facet arthropathy. BODY WALL: Unremarkable. IMPRESSION: No acute abnormality identified. Advanced cirrhosis and other chronic findings as above. THIS IS AN ELECTRONICALLY VERIFIED FINAL REPORT 08/15/2024 8:48 PM - Electronically signed by Chang Wynn M.D. AR: FELIPE Report ID: [id number] Reading Location: [id number] Procedure Note Chang Wynn MD - 08/15/2024 [...] lymph node or free fluid. Hysterectomy. MSK: Njep-wz-lbbidujj disc disease and facet arthropathy. BODY WALL: Unremarkable. IMPRESSION: No acute abnormality identified. Advanced cirrhosis and other chronic findings as above. THIS IS AN ELECTRONICALLY VERIFIED FINAL REPORT 08/15/2024 8:48 PM - Electronically signed by Chang Wynn M.D. AR: FELIPE Report ID: [id number] Reading Location: [place] [address] Alexis Barbour MD IMG CT PROCEDURES Final Result * (ABNORMAL) Lipase (08/15/2024 4:17 PM CDT) Lipase 109(H) 10 - 99 Units/L Blood 08/15/2024 4:17 PM CDT 08/15/2024 4:19 PM CDT Alexis Barbour MD LAB BLOOD ORDERABLES Final Resul t Performing Organization Address [facility] Co de Phone Number AMIE RENAE LISSIE) 1 [facility] [employer] [place] [address] * Amylase (08/15/2024 4:17 PM CDT) Pathologist [facility] Amylase 68 30 - 99 Units/L Blood 08/15/2024 4:17 PM CDT 08/15/2024 4:19 PM CDT Alexis Barbour MD LAB BLOOD ORDERABLES Final Resul t Performing Organization Address City/[facility] Co de Phone Number AMIE RENAE LISSIE) 1 [facility] [employer] [place] [address] * Ethanol (08/15/2024 4:17 PM CDT) Ethanol <10 <=10 mg/dL Comment: Interpretive Data Legal limit of intoxication > or = 80 mg/dL Levels > or = 400 mg/dL are potentially TOXIC. Current interpretive data was last revised on 2018. Blood 08/15/2024 4:17 PM CDT 08/15/2024 4:20 PM CDT us Alexis Barbour MD LAB BLOOD ORDERABLES Final Resul t Performing Organization Address City/[facility]/ZIP Co de Phone Number AMIE RENAE (LIS[place]E) [address] [place] [address] [place] [address] * eGFR (08/15/2024 11:05 AM CDT) eGFR [...] ORDERABLES Final Re sult Performing Organization Address City/[facility]/ZIP Co de Phone Number [facility] ([place]E) 1 [facility] Department [employer] [place] [address] * (ABNORMAL) Drugs of Abuse Screen, Urine without Confirmation (08/15/2024 11:05 AM CDT) [facility] Amphetamine, ur Not Detected CutOff 500ng/mL Comment: [...] [facility] Department [place] [address] * (ABNORMAL) CBC without differential (08/15/2024 11:05 AM CDT) Pathologist [facility] WBC 3.59(L) 3.80 - 9.90 K/cumm Hgb [...] Final Re sult AMIE RENAE (ALLI) 1 [facility] Department [place] [address] * (ABNORMAL) Comprehensive metabolic panel (08/15/2024 11:05 AM CDT) [facility] Sodium 141 135 - 145 mmol/L Potassium, [...] (ALLI) Glucose 96 70 - 199 mg/dL [facility] ([facility] Comment: Interpretive Data [...] 2022. Calcium 9.3 8.5 - 10.3 mg/dL [facility] ([facility] Bilirubin, total 0.5 0.1 - 1.2 mg/dL [facility] ([facility] Protein, pl 7.2 6.5 - 8.5 g/dL [facility] ([place]) Albumin 3.8 3.5 - 5.0 g/dL [facility] ([place]) Alk phos 90 40 - 130 Units/L [facility] ([place]) ALT 24 7 - 45 Units/L [facility] AST 41 10 - 45 Units/L [facility] ([facility] Comment:Slightly Hemolyzed S pecimen Blood 08/15/2024 11:0 5 AM CDT 08/15/2024 11:37 AM CDT us Jesenia Mckeon MD LAB BLOOD ORDERABLES Final Re sult [facility] ([place]) 1 [facility] Department [place] [address] * Hepatitis panel, acute Blood (06/11/2024 11:59 AM WIND TECHNICIAN) Hep A IgM Nonreactive Nonreactive Comment: Interpretive Data: If Hep A IgM Ab is reported as Equivocal, a new sample should be drawn in two weeks for testing. Current interpretive data was last revised on 19. Testing performed by: [facility], [address] [place] [address]., [id number] Hep B core IgM Nonreactive Nonreactive Selin RENAE (ALLI) Comment: Interpretive Data If HepB Core IgM Ab is reported as Equivocal, a new sample should be drawn in two weeks for testing. Current interpretive data was last revised on 19. Testing performed by: [facility], [address] [place] [address]., [id number] Hep C Ab Nonreactive Nonreactive AMIE RENAE [...] on 2019. Testing performed by: [facility], [address] [place] [address]., [id number] HepBsAg Nonreactive Nonreactive AMIE RENAE (ALLI) Comment:Testing performed by : [address] [id number] Blood 06/11/2024 11:5 9 AM WIND TECHNICIAN 06/11/2024 1:56 PM WIND TECHNICIAN Dana Maradiaga MD LAB MICROBIOLOGY - GENERAL ORDERABLES Final Result AMIE RENAE (ALLI) 1 [facility] [employer] [place] [address] from Last 3 Months or Most Recently Relevant to Health Maintenance Insurance [employer] [facility] Advance Directives For more information, please contact: [phone] * Full Code (Latest Code Status on File) Date Activated Date Inactivated Comments 09/21/2024 6:35 PM 09/27/2024 4:14 PM * Full Code Date Activated Date Inactivated Comments 08/15/2024 3:03 PM 08/17/2024 6:27 PM * Full Code Date Activated Date Inactivated Comments 06/09/2024 2:35 PM 06/12/2024 5:25 PM * Full Code Date Activated Date Inactivated Comments 04/25/2024 5:41 PM 05/07/2024 7:44 PM Care Teams Lobby Porter Relationship Specialty Start Date End Date Bladimir Crowder MD [address] [place] [id number] PCP - General Family Medicine 04/25/24
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
--- NOTE | 2024-10-24 12:12 | ED.BACK ---
HPI - Back Pain/Injury General Chief Complaint: Unspecified Stated Complaint: back pain Time Seen by Provider: 10/24/24 11:54 Source: patient Mode of arrival: ambulatory Limitations: no limitations History of Present Illness HPI Narrative: 1-year-old female with a history of anxiety, alcoholic cirrhosis, chronic pancreatitis, hypertension, chronic back pain presents to the ED with -- low back pain. Pain radiates down the back of the left lower extremity. the patient was attempting to pull up her from the floor no fever. The patient has a prior history of low back pain with sciatica involving the left side. no dysuria or hematuria. no motor or sensory deficits the lower extremity. -- Recurrent falls. the patient drinks on a regular basis. -- confusion -- urinary incontinence. No retention of urine. MD elicited complaint: back pain and fall Pertinent past history: prior back pain Onset (ago): day(s) ( Two days) Timing: constant Similar Symptoms Previously: Yes Quality: aching Location: lumbar spine Radiation: right leg below the knee Exacerbating factors: movement Relieving factors: immobilization Associated symptoms: weakness and urinary incontinence Related Data Home Medications ?Medication ?Instructions ?Recorded ?Confirmed ?Last Taken ?Type gabapentin 400 mg capsule 400 mg PO Q8H 08/13/24 09/13/24 Unknown History hydroxyzine pamoate 25 mg capsule 25 mg PO DAILY 08/13/24 09/13/24 Unknown History sertraline 100 mg tablet 100 mg PO Q24H 08/13/24 09/13/24 Unknown History trazodone 150 mg tablet 150 mg PO DAILY 08/13/24 09/13/24 Unknown History Allergies Allergy/AdvReac Type Severity Reaction Status Date / Time No Known Allergies Allergy Verified 09/13/24 18:31 Review of Systems Review of Systems: All systems reviewed & are unremarkable except as noted in HPI and below Constitutional: Constitutional: Reports as per HPI and Reports no additional constitutional complaints Eyes: Eyes: Reports as per HPI and Reports no additional eye complaints ENT: Reports system reviewed and no additional complaints, except as documented and Reports as per HPI Cardiovascular: Cardiovascular: Reports as per HPI and Reports no additional cardiovascular complaints Respiratory: Respiratory: Reports as per HPI and Reports no additional respiratory complaints Gastrointestinal: Gastrointestinal: Reports as per HPI Comments: Chronic abdominal pain secondary to pancreatitis, gallstones. no recent exacerbation Genitourinary: Genitourinary: Reports no additional female genitourinary complaints Musculoskeletal: Musculoskeletal: Reports no additional musculoskeletal complaints, Reports as per HPI and Reports back pain Integumentary/Breasts: Skin/Breast: Reports system reviewed and no additional complaints, except as docu and Reports as per HPI Neurologic: Reports system reviewed and no additional complaints, except as documented and Reports as per HPI Psychiatric: Psychiatric: Reports no additional psychiatric complaints and Reports as per HPI Endocrine: Endocrine: Reports no additional endocrine complaints and Reports as per HPI Hematologic/Lymphatic: Hematologic/Lymphatic: Reports no additional hematologic/lymphatic complaints and Reports as per HPI Allergic/Immunologic: Allergic/Immunologic: Reports no additional allergic/immunologic complaints and Reports as per HPI [facility] Past Medical History Medical History Cirrhosis GERD (gastroesophageal reflux disease) Hypertension ETOH abuse Social History Social History Smoking status: Never smoker Second hand tobacco smoke exposure: No Alcohol intake: current Drinks per week: 7 Substance use: current Substance use type: marijuana Other substance usage details: daily marijuana use. Do You Feel Safe in your Home?: Yes Lack of Transportation: No Lack of Food: Sometimes True Current Housing: I Have Housing Concerned About Future Housing: No Difficulty Paying Gas/Electric Bills: YES Difficulty Paying for Meds: No Currently Unemployed: YES Education: High School Diploma/GED Difficulty w/ Childcare or Family Care: No Spiritual care concerns: No Exam Narrative: blood pressure is 145/102. pulse of 74. Afebrile. Oxygen saturation of 98% on room air. Const: General: no acute distress Orientation/consciousness: patient oriented x3 Limitations: no limitations HENMT: Head: normal to inspection Ears: external ears normal Face/Nose/Sinus: Normal external nose present Face and sinus: normal facial exam Mouth: Yes Normal oral and palatal mucosa present Throat: posterior oropharynx normal Eyes: Conjunctivae: conjunctivae normal Pupils: Equal, round and reactive pupils present EOM: EOMs intact bilaterally Direct Ophthalmoscopy: no photophobia Neck: Neck: normal visual inspection Chest: Chest palpation & inspection: normal inspection of the chest Resp: Effort & Inspection: normal respiratory effort Auscultation: clear to auscultation bilaterally Cardio: Rate: regular rate Rhythm: regular rhythm GI: GI Palp: Yes Soft to palpation Auscultation: normal bowel sounds Rectal Exam: normal sphincter tone : General: Yes no CVA tenderness Back/Spine/Pelvis: Back: no CVA tenderness Other: Tenderness lower back. No spinal tenderness. Straight-leg raising is positive on the left at 60? Skin: General skin exam: normal color Rashes: no rashes Wounds: no wounds Neuro: General: patient oriented x3, moves all extremities, no meningeal signs, no focal motor deficits and CN's II-XI intact bilaterally Cranial nerves: Yes Nystagmus not present Speech: normal speech Extrem: General: normal to inspection and no clubbing, cyanosis or edema Psych: Mental Status: mental status grossly normal Affect: normal affect Attitude: cooperative Course Course Emergency Course: recurrent falls with confusion--- patient has a history of alcohol use. CT of the head did not show any acute findings. Urinary incontinence-- UA is negative. No evidence of cord compression on the CT of the lumbar spine chronic low back pain secondary to multiple disc bulging and root compression at L5/S1. The patient has a prior history of sciatica with left lower extremity radiation. Chronic thrombocytopenia Vital Signs Vital signs: Vital Signs Temperature 36.4 C L 10/24/24 11:43 Pulse Rate 74 10/24/24 11:43 Respiratory Rate 16 10/24/24 11:43 Blood Pressure 145/102 H 10/24/24 11:43 Pulse Oximetry 98 10/24/24 11:43 Oxygen Delivery Room Air 10/24/24 11:43 Temperature 36.4 C L 10/24/24 11:43 Pulse Rate 74 10/24/24 11:43 Respiratory Rate 16 10/24/24 11:43 Blood Pressure 145/102 H 10/24/24 11:43 Pulse Oximetry 98 10/24/24 11:43 Oxygen Delivery Room Air 10/24/24 11:43 MDM - Back Pain/Injury MDM Narrative Medical decision making narrative: alcoholism with confusion and recurrent falls chronic back pain with diffuse disc bulging and root compression at L5/S1. Would recommend following up with spine surgeon/ortho. No evidence of cord compression. patient has a kidney stone without any hematuria. Patient has a normal BUN/creatinine. Patient's pain is suggestive of low back pain radiating to the left lower extremity. The patient does not have colicky kind of pain. advised to follow-up with primary care physician / neurologist for an MRI and for chronic back pain. Differential Diagnosis Differential diagnosis: Likely lumbar radiculopathy, strain of lumbar region and renal colic Medical Records Attestation: I reviewed the patient's medical records. Lab Data Attestation: I reviewed the patient's lab results. 10/24/24 12:30 10/24/24 12:30 Labs: Lab Results 10/24/24 10/24/24 Range/Units 12:23 12:30 WBC 5.9 (4.8-10.8) K/mm3 RBC 4.57 (4.20-5.40) M/mm3 Hgb 14.2 (12.0-15.0) g/dL Hct 41.7 (35.0-49.0) % MCV 91.2 (78.0-102.0) fL MCH 31.1 H (27.0-31.0) pg MCHC 34.1 (32-36) g/dL RDW 12.9 (11.6-14.4) % Plt Count 87 L (150-420) K/mm3 MPV 9.9 (9.2-11.8) fl Immature Gran % (Auto) 0.2 H (0.0-0.0) % Neut % (Auto) 67.3 (50.0-70.0) % Lymph % (Auto) 20.9 (18.0-42.0) % [place] % (Auto) 10.4 (2.0-11.0) % Eos % (Auto) 0.9 L (1.0-6.0) % Baso % (Auto) 0.3 (0.0-1.0) % Lymph # (Auto) 1.23 (1.10-4.50) K/mm3 [place] # (Auto) 0.61 (0.10-0.90) K/mm3 Eos # (Auto) 0.05 (0.02-0.50) K/mm3 Baso # (Auto) 0.02 (0.00-0.10) K/mm3 Abs Immat Gran (auto) 0.01 H (0.00-0.00) K/mm3 Absolute Neuts (auto) 3.96 (1.70-7.20) K/mm3 Absolute Nucleated RBC 0.00 (0.00-0.00) K/mm3 Nucleated RBC % 0.0 (0-0.0) % % Immature Plt Fraction 1.9 (1.0-7.0) % Sodium 142 (137-145) mmol/L Potassium 3.5 (3.4-5.0) mmol/L Chloride 108 H (98-107) mmol/L Carbon Dioxide 24 (22-30) mmol/L Anion Gap 10 (4-12) mmol/L BUN 16 (7-17) mg/dL Creatinine 0.63 L (0.7-1.0) mg/dL Estim Creat Clear Calc 78 ml/min Estimated GFR > 60 (59 - ) Glucose 89 (65-110) mg/dL Calculated Osmolality 294 (285-295) mOsm/kg Calcium 8.7 (8.4-10.2) mg/dL Total Bilirubin 1.0 (0.2-1.3) mg/dL AST 47 H (14-36) U/L ALT 24 (6-35) U/L Alkaline Phosphatase 90 (38-126) U/L Total Protein 8.3 H (6.3-8.2) g/dL Albumin 4.3 (3.5-5.1) g/dL Lipase 153 (23-300) U/L Urine Color Light yellow (Yellow) Urine Appearance Clear (Clear) Urine pH 6.0 (5.0-8.0) Ur Specific [place] 1.010 (1.010-1.020) Urine Protein Negative (Negative) Urine Glucose (UA) Negative (Negative) Urine Ketones Negative (Negative) Ur Blood (Man) Negative (Negative) Urine Nitrate Negative (Negative) Urine Bilirubin Negative (Negative) Urine Urobilinogen 0.2 (0.2-1.0) mg/dL Leukocyte Esterase Rfl Negative (Negative) KATELYNN/UL Discharge Plan Discharge Clinical Impression: Thrombocytopenia, Alcoholism, Recurrent falls, Left lumbar radiculopathy Chronic bilateral low back pain Qualifiers: Sciatica presence: with sciatica Sciatica laterality: sciatica of left side Qualified Code(s): G89.29 - Other chronic pain Patient Disposition: Home Condition: Stable Instructions: Antibiotic Form, Lumbar Radiculopathy (ED), Thrombocytopenia (ED), Alcohol Dependence (ED) Patient Language: Macedonian Prescriptions: New hydrocodone-acetaminophen 5-325 mg tablet 1 tablet PO Q6H PRN (Reason: pain) Qty: 10 0RF No Action lorazepam [Ativan] 0.5 mg tablet 0.5 mg PO BID PRN (Reason: anxiety) Qty: 20 0RF gabapentin 400 mg capsule 400 mg PO Q8H sertraline 100 mg tablet 100 mg PO Q24H trazodone 150 mg tablet 150 mg PO DAILY hydroxyzine pamoate 25 mg capsule 25 mg PO DAILY ondansetron 4 mg tablet,disintegrating 4 mg PO Q8H PRN (Reason: nausea and vomiting) Qty: 30 0RF magnesium oxide 400 mg magnesium tablet 400 mg PO DAILY Qty: 30 0RF hydrocodone-acetaminophen 5-325 mg tablet 1 tablet PO Q8H PRN (Reason: pain) Qty: 20 0RF pantoprazole 40 mg tablet,delayed release (DR/EC) 40 mg PO HS Qty: 30 0RF sucralfate [Carafate] 100 mg/mL suspension 2 g PO TIDWM Qty: 414 0RF Rx Instructions: Take an hour prior to meal Follow-up/Referrals: Deshaun,Ruma Aden MD [Primary Care Provider] - Time of Disposition: 13:59
--- OUTSIDE RECORDS SUMMARY | 2024-10-24 12:21 | XMS_ITS ---
Author Organization Unknown Address [address] [place] [address] [phone] Phone Care Team Providers Care Openstack Developer Name Role Phone JOHN Jean Attending Unavailable AMINTA Mills Primary Unavailable Results FIBROSURE - Collect Date/Jhonatan e: 05/14/2024 10:20 [facility] ID: [id number] [place] [address], [id number] LOINC: Test Value Unit Reference Range Code Code System Flag TING? _YES Fibrosis Score 0.22 0.00-0.21 76191-6 LOINC H Fibrosis Stage F0-F1 35147-9 LOINC Necroinflammat ActivityScore 0.16 0.00-0.17 39443-9 LOINC Necroinflammat ActivityGrade A0-No activity 47943-3 LOINC Methodology: COMMENT 48290-3 LOINC Alpha 2-Macroglobulins,Qn 243 392-392 4491-8 LOINC Haptoglobin 110 42-296 4542-7 LOINC Apolipoprotein A-1 195 233-489 5138-7 LOINC Bilirubin, Total 0.2 0.0-1.2 1975-2 LOINC GGT 310 0-60 2324-2 LOINC H ALT (SGPT) P5P 34 0-40 1743-4 LOINC Interpretations: COMMENT Fibrosis Scoring: COMMENT Necroinflamm ActivityScoring: COMMENT Limitations: COMMENT 8251-1 LOINC Comment: COMMENT 29722-1 LOINC Social History Type Status Start Date End Date Code Code Syst em Smoking History Unknown if ever smoked [address] Smoking History Never smoker (Never Smoked) 052491427 SNOMED CT Sex Female Medications Medication Start Date End Date Route Frequency Dose Code Code System Medication Instructions Home Meds Acamprosate Calcium 333MG Oral Tablet, Delayed Release 04/12/2024 06/29/2024 ORAL THREE TIMES A DAY 2 TABLET 912642 RxNorm TAKE 2 TABLET ORAL THREE TIMES A DAY Ativan 0.5MG Oral Tablet 04/12/2024 06/29/2024 ORAL ONCE A DAY 0.5 MILLIGRAMS 756779 RxNorm TAKE 0.5 MILLIGRAMS ORAL ONCE A DAY Gabapentin 400MG Oral Capsule 04/12/2024 Unknown ORAL THREE TIMES A DAY 400 MILLIGRAMS 647037 RxNorm TAKE 400 MILLIGRAMS ORAL THREE TIMES A DAY Meloxicam 15MG Oral Tablet 04/12/2024 06/29/2024 ORAL ONCE A DAY 15 MILLIGRAMS 964064 RxNorm TAKE 15 MILLIGRAMS ORAL ONCE A DAY Nabumetone 500MG Oral Tablet 04/12/2024 06/29/2024 ORAL TWICE A DAY 500 MILLIGRAMS 597528 RxNorm TAKE 500 MILLIGRAMS ORAL TWICE A DAY Ondansetron 4MG Oral Tablet, Disintegrating 04/12/2024 06/29/2024 ORAL NEEDED 4 MILLIGRAMS 148773 RxNorm TAKE 4 MILLIGRAMS ORAL NEEDED Prazosin HCl 1MG Oral Capsule 04/12/2024 06/29/2024 ORAL AT BEDTIME 1 MILLIGRAMS 810487 RxNorm TAKE 1 MILLIGRAMS ORAL AT BEDTIME Sertraline HCl 150 MG Oral Capsule 04/12/2024 06/29/2024 ORAL ONCE A DAY 150 MG 662391 RxNorm TAKE 150 MG ORAL ONCE A DAY traZODone hydrochloride 100MG Oral Tablet 04/12/2024 06/29/2024 ORAL AT BEDTIME 100 MILLIGRAMS 994309 RxNorm TAKE 100 MILLIGRAMS ORAL AT BEDTIME [...] ALCOHOLIC CIRRHOSIS OF LIVER WITHOUT ASCITES active 863388160 SNOMED-CT Allergies and Adverse Reactions Allergy Substance Reaction Severity Start Date Concern Status Co de Code System No Known Drug Allergies Active 608319762 SNOMED-CT Plan of Treatment Colonoscopy 07/03/2024 Encounters Encounter Diagnosis Start Date Code Code Sys tem Alcoholic cirrhosis of liver without ascites SNOMED-CT Personal Care Team Section Performer Name Performer Role Active Date Inactive LELIA Pan PCP - Primary care physician 2024-03
--- OUTSIDE RECORDS SUMMARY | 2024-10-24 12:21 | XMS_ITS ---
Author Organization Unknown Address [address] [place] [address] [phone] Phone Care Team Providers Care Decommissioning Well Site Manager Name Role Phone SUMANTH Rae Attending Unavailable JEREMY JOLLY CRNA Unavailable AMINTA Mills Primary Unavailable Social History Type Status Start Date End Date Code Code Syst em Smoking History Unknown if ever smoked [address] Smoking History Never smoker (Never Smoked) 649360879 SNOMED CT Sex Female Vital Signs Vital Sign Value Unit [place] Value [place] Unit Date/Time Recent/Initial? Code Code System Body Mass Index 24.96 kg/m2 04/12/2024 08:25 Most Recent 28537 -5 LOINC Body Mass Index 24.96 kg/m2 03/27/2024 14:01 Initial 76250 -5 LOINC Systolic Blood Pressure 142 mm[Hg] [...] O2 Saturation 97 % 2024 08:26 Initial 20803 -5 LOINC Pulse 76.0 /min 04/12/2024 08:26 Initial 8867- 4 LOINC Respiration 12 /min 04/12/19 08:26 Initial 9279- 1 LOINC Temperature 36.5 Mita 97.7 F 04/12/19 08:26 Initial 8310- 5 [facility] Weight 68.04 kg 150.00 lbs 04/12/2024 08:25 Most Recent 62497 -7 [facility] Weight 68.04 kg 150.00 lbs 03/27/2024 14:01 Initial 72246 -7 [facility] Medications Medication Start Date End Date Route Frequency Dose Code Code System Medication Instructions Home Meds Acamprosate Calcium 333MG Oral Tablet, Delayed Release 04/12/2024 06/29/2024 ORAL THREE TIMES A DAY 2 TABLET 607451 RxNorm TAKE 2 TABLET ORAL THREE TIMES A DAY Ativan 0.5MG Oral Tablet 04/12/2024 06/29/2024 ORAL ONCE A DAY 0.5 MILLIGRAMS 353821 RxNorm TAKE 0.5 MILLIGRAMS ORAL ONCE A DAY Gabapentin 400MG Oral Capsule 04/12/2024 Unknown ORAL THREE TIMES A DAY 400 MILLIGRAMS 111271 RxNorm TAKE 400 MILLIGRAMS ORAL THREE TIMES A DAY Meloxicam 15MG Oral Tablet 04/12/2024 06/29/2024 ORAL ONCE A DAY 15 MILLIGRAMS 196415 RxNorm TAKE 15 MILLIGRAMS ORAL ONCE A DAY Nabumetone 500MG Oral Tablet 04/12/2024 06/29/2024 ORAL TWICE A DAY 500 MILLIGRAMS 742713 RxNorm TAKE 500 MILLIGRAMS ORAL TWICE A DAY Ondansetron 4MG Oral Tablet, Disintegrating 04/12/2024 06/29/2024 ORAL NEEDED 4 MILLIGRAMS 172291 RxNorm TAKE 4 MILLIGRAMS ORAL NEEDED Prazosin HCl 1MG Oral Capsule 04/12/2024 06/29/2024 ORAL AT BEDTIME 1 MILLIGRAMS 518257 RxNorm TAKE 1 MILLIGRAMS ORAL AT BEDTIME Sertraline HCl 150 MG Oral Capsule 04/12/2024 06/29/2024 ORAL ONCE A DAY 150 MG 933578 RxNorm TAKE 150 MG ORAL ONCE A DAY traZODone hydrochloride 100MG Oral Tablet 04/12/2024 06/29/2024 ORAL AT BEDTIME 100 MILLIGRAMS 545711 RxNorm TAKE 100 MILLIGRAMS ORAL AT BEDTIME [...] Date Status Code Code Syste m completed 02474612 SNOMEDCT Colonoscopy completed 37251302 SNOMEDCT Esophagogastroduodenoscopy, flexible, transoral; diagnostic, including col 04/12/2024 completed 08874 CPT Esophagogastroduodenoscopy completed 50878644 SNOMEDCT Laparoscopy completed 65322727 SNOMEDCT Hysterectomy completed 757541319 SNOMEDCT Anesthesia for upper gastroi ntestinal endoscopic procedures, endoscope int 04/12/2024 completed 47074 CPT Problems Problem Start Date Resolved Date Status Code Code System ALCOHOLIC CIRRHOSIS OF LIVER WITHOUT ASCITES active 733052636 SNOMED-CT Allergies and Adverse Reactions Allergy Substance Reaction Severity Start Date Concern Status Co de Code System No Known Drug Allergies Active 133984640 SNOMED-CT Plan of Treatment Colonoscopy 07/03/2024 Encounters Encounter Diagnosis Start Date Code Code Sys tem Unspecified cirrhosis of liver 04/12/2024 SNOMED-CT Personal Care Team Section Performer Name Performer Role Active Date Inactive LELIA Pan PCP - Primary care physician 2024-03 Procedures Notes
--- OUTSIDE RECORDS SUMMARY | 2024-10-24 12:21 | XMS_ITS ---
Author Organization Unknown Address [address] [place] [address] [phone] Phone Care Team Providers Care Supervisor Machining Name Role Phone JOHN Jean Attending Unavailable AMINTA Mills Primary Unavailable Social History Type Status Start Date End Date Code Code Syst em Smoking History Unknown if ever smoked [address] Smoking History Never smoker (Never Smoked) 614242423 SNOMED CT Sex Female Medications Medication Start Date End Date Route Frequency Dose Code Code System Medication Instructions Home Meds Acamprosate Calcium 333MG Oral Tablet, Delayed Release 04/12/2024 06/29/2024 ORAL THREE TIMES A DAY 2 TABLET 135548 RxNorm TAKE 2 TABLET ORAL THREE TIMES A DAY Ativan 0.5MG Oral Tablet 04/12/2024 06/29/2024 ORAL ONCE A DAY 0.5 MILLIGRAMS 778549 RxNorm TAKE 0.5 MILLIGRAMS ORAL ONCE A DAY Gabapentin 400MG Oral Capsule 04/12/2024 Unknown ORAL THREE TIMES A DAY 400 MILLIGRAMS 133994 RxNorm TAKE 400 MILLIGRAMS ORAL THREE TIMES A DAY Meloxicam 15MG Oral Tablet 04/12/2024 06/29/2024 ORAL ONCE A DAY 15 MILLIGRAMS 111864 RxNorm TAKE 15 MILLIGRAMS ORAL ONCE A DAY Nabumetone 500MG Oral Tablet 04/12/2024 06/29/2024 ORAL TWICE A DAY 500 MILLIGRAMS 095670 RxNorm TAKE 500 MILLIGRAMS ORAL TWICE A DAY Ondansetron 4MG Oral Tablet, Disintegrating 04/12/2024 06/29/2024 ORAL NEEDED 4 MILLIGRAMS 488279 RxNorm TAKE 4 MILLIGRAMS ORAL NEEDED Prazosin HCl 1MG Oral Capsule 04/12/2024 06/29/2024 ORAL AT BEDTIME 1 MILLIGRAMS 873618 RxNorm TAKE 1 MILLIGRAMS ORAL AT BEDTIME Sertraline HCl 150 MG Oral Capsule 04/12/2024 06/29/2024 ORAL ONCE A DAY 150 MG 326377 RxNorm TAKE 150 MG ORAL ONCE A DAY traZODone hydrochloride 100MG Oral Tablet 04/12/2024 06/29/2024 ORAL AT BEDTIME 100 MILLIGRAMS 317854 RxNorm TAKE 100 MILLIGRAMS ORAL AT BEDTIME [...] ALCOHOLIC CIRRHOSIS OF LIVER WITHOUT ASCITES active 923629010 SNOMED-CT Allergies and Adverse Reactions Allergy Substance Reaction Severity Start Date Concern Status Co de Code System No Known Drug Allergies Active 883272407 SNOMED-CT Plan of Treatment Colonoscopy 07/03/2024 Encounters Encounter Diagnosis Start Date Code Code Sys tem Alcoholic cirrhosis of liver without ascites SNOMED-CT Personal Care Team Section Performer Name Performer Role Active Date Inactive LELIA Pan PCP - Primary care physician 2024-03
--- OUTSIDE RECORDS SUMMARY | 2024-10-24 12:21 | XMS_ITS ---
Author Organization Unknown Address [address] [place] [phone] Phone Care Team Providers Care Fern Gatherer Name Role Phone JOHN Jean Attending Unavailable Results ALPHA PROTEIN SERUM(RE F) - Collect Date/Time: 03/23/2024 14:40 [facility] ID: [id number] [place] [address], [id number] LOINC: 18063-8 Test Value Unit Reference Range Code Code System Flag AFP, Serum, Tumor Marker 8.3 0.0-6.4 46274-3 LOINC H Social History Type Status Start Date End Date Code Code Syst em Smoking History Unknown if ever smoked [address] Smoking History Never smoker (Never Smoked) 998427080 SNOMED CT Sex Female Medications Medication Start Date End Date Route Frequency Dose Code Code System Medication Instructions Home Meds Acamprosate Calcium 333MG Oral Tablet, Delayed Release 04/12/2024 06/29/2024 ORAL THREE TIMES A DAY 2 TABLET 811525 RxNorm TAKE 2 TABLET ORAL THREE TIMES A DAY Ativan 0.5MG Oral Tablet 04/12/2024 06/29/2024 ORAL ONCE A DAY 0.5 MILLIGRAMS 724387 RxNorm TAKE 0.5 MILLIGRAMS ORAL ONCE A DAY Gabapentin 400MG Oral Capsule 04/12/2024 Unknown ORAL THREE TIMES A DAY 400 MILLIGRAMS 654791 RxNorm TAKE 400 MILLIGRAMS ORAL THREE TIMES A DAY Meloxicam 15MG Oral Tablet 04/12/2024 06/29/2024 ORAL ONCE A DAY 15 MILLIGRAMS 140996 RxNorm TAKE 15 MILLIGRAMS ORAL ONCE A DAY Nabumetone 500MG Oral Tablet 04/12/2024 06/29/2024 ORAL TWICE A DAY 500 MILLIGRAMS 780960 RxNorm TAKE 500 MILLIGRAMS ORAL TWICE A DAY Ondansetron 4MG Oral Tablet, Disintegrating 04/12/2024 06/29/2024 ORAL NEEDED 4 MILLIGRAMS 259500 RxNorm TAKE 4 MILLIGRAMS ORAL NEEDED Prazosin HCl 1MG Oral Capsule 04/12/2024 06/29/2024 ORAL AT BEDTIME 1 MILLIGRAMS 032556 RxNorm TAKE 1 MILLIGRAMS ORAL AT BEDTIME Sertraline HCl 150 MG Oral Capsule 04/12/2024 06/29/2024 ORAL ONCE A DAY 150 MG 993934 RxNorm TAKE 150 MG ORAL ONCE A DAY traZODone hydrochloride 100MG Oral Tablet 04/12/2024 06/29/2024 ORAL AT BEDTIME 100 MILLIGRAMS 142255 RxNorm TAKE 100 MILLIGRAMS ORAL AT BEDTIME [...] ALCOHOLIC CIRRHOSIS OF LIVER WITHOUT ASCITES active 500168608 SNOMED-CT Allergies and Adverse Reactions Allergy Substance Reaction Severity Start Date Concern Status Co de Code System No Known Drug Allergies Active 517218407 SNOMED-CT Plan of Treatment Colonoscopy 07/03/2024 Encounters Encounter Diagnosis Start Date Code Code Sys tem Alcoholic cirrhosis of liver without ascites 4 SNOMED-CT Personal Care Team Section Performer Name Performer Role Active Date Inactive LELIA Pan PCP - Primary care physician 2024-03
--- OUTSIDE RECORDS SUMMARY | 2024-10-24 12:21 | XMS_ITS ---
Author Organization Unknown Address [address] [place] [address] [phone] Phone Care Team Providers Care Principal Electrical Engineer Name Role Phone SUMANTH Rae Attending Unavailable JEREMY JOLLY CRNA Unavailable AMINTA Mills Primary Unavailable Social History Type Status Start Date End Date Code Code Syst em Smoking History Unknown if ever smoked [id number] Smoking History Never smoker (Never Smoked) [id number] SNOMED CT Sex Female Vital Signs Vital Sign Value Unit [place] Value [place] Unit Date/Time Recent/Initial? Code Code System Body Mass Index 24.63 kg/m2 07/03/2024 07:51 Most Recent 98204 -5 LOINC Body Mass Index 24.63 kg/m2 06/25/2024 14:12 Initial 21191 -5 LOINC Systolic Blood Pressure 161 mm[Hg] [...] O2 Saturation 96 % 2024 08:02 Initial 55104 -5 LOINC Pulse 60.0 /min 07/03/2024 08:02 Initial 8867- 4 LOINC Respiration 20 /min 07/04/19 08:02 Initial 9279- 1 LOINC Temperature 36.3 Mita 97.3 F 07/04/19 08:02 Initial 8310- 5 LOINC Weight 67.13 kg 148.00 lbs 07/03/2024 07:51 Most Recent 86134 -7 LOINC Weight 67.13 kg 148.00 lbs 06/25/2024 14:12 Initial 79018 -7 LOINC Medications Medication Start Date End Date Route Frequency Dose Code Code System Medication Instructions Home Meds Gabapentin 400MG Oral Capsule 04/12/2024 Unknown ORAL THREE TIMES A DAY 400 MILLIGRAMS 893564 RxNorm TAKE 400 MILLIGRAMS ORAL THREE TIMES [...] nal endoscopic procedures, endoscope introduce 07/03/2024 completed 28848 CPT Problems Problem Start Date Resolved Date Status Code Code System ALCOHOLIC CIRRHOSIS OF LIVER WITHOUT ASCITES active 528731253 SNOMED-CT Allergies and Adverse Reactions Allergy Substance Reaction Severity Start Date Concern Status Co de Code System No Known Drug Allergies Active 854473765 SNOMED-CT Plan of Treatment Colonoscopy 07/03/2024 Encounters Encounter Diagnosis Start Date Code Code Sys tem Encounter for screening for malignant neoplasm of colo n 07/03/2024 SNOMED-CT Personal Care Team Section Performer Name Performer Role Active Date Inactive LEILA Pan PCP - Primary care physician 2024-03 Procedures Notes
[2024-10-24 12:30] LABS: Add Urine Microscopic? NO; Appearance Urine Clear (Clear); Glucose Urine UA Negative (Negative); Leukocyte Esterase Ur Negative LEU/UL (Negative); Nitrate Urine Negative (Negative); Specific Grav Ur 1.010 (1.010-1.020)
[2024-10-24 12:39] LABS: Hematocrit 41.7 % (35.0-49.0); Hemoglobin 14.2 g/dL (12.0-15.0); Immature Granulocyte Percent A 0.2 % (0.0-0.0); Immature Platelet Fraction Pct 1.9 % (1.0-7.0); Lymphocytes Absolute Auto 1.23 K/mm3 (1.10-4.50); Mean Corpuscular HGB Conc 34.1 g/dL (32-36); Mean Corpuscular Hemoglobin 31.1 pg (27.0-31.0); Mean Corpuscular Volume 91.2 fL (78.0-102.0); Nucleated Red Blood Cells Absolute Auto 0.00 K/mm3 (0.00-0.00); Nucleated Red Blood Cells Perc 0.0 % (0-0.0); Platelet Count Result 87 K/mm3 (150-420); Red Blood Count 4.57 M/mm3 (4.20-5.40); White Blood Count 5.9 K/mm3 (4.8-10.8)
[2024-10-24 12:49] LABS: Alanine Aminotransferase 24 U/L (6-35); Albumin Level 4.3 g/dL (3.5-5.1); Alkaline Phosphatase 90 U/L (38-126); Anion Gap 10 mmol/L (4-12); Aspartate Amino Transferase 47 U/L (14-36); Bilirubin,Total 1.0 mg/dL (0.2-1.3); Blood Urea Nitrogen 16 mg/dL (7-17); Calcium 8.7 mg/dL (8.4-10.2); Carbon Dioxide 24 mmol/L (22-30); Chloride 108 mmol/L (98-107); Estimated CRCL calculation 78 ml/min; Estimated Glomerular Filt Rate > 60; Glucose 89 mg/dL (65-110); Lipase 153 U/L (23-300); Osmolality Calculated 294 mOsm/kg (285-295); Potassium 3.5 mmol/L (3.4-5.0); Sodium 142 mmol/L (137-145); Total Protein 8.3 g/dL (6.3-8.2)
[2024-10-24 14:18] VITALS: BP 152/100; PULSE 69; RESP 18; TEMP 36.8; O2SAT 97
== END 2024-10-24 14:18 | disposition home or self-care (01) ==
PROVIDERS: Emergency Provider Internal Medicine Critical Care Medicine; PCP Family Medicine
DX: M54.16 Radiculopathy, lumbar region (principal); D69.6 Thrombocytopenia, unspecified; F10.20 Alcohol dependence, uncomplicated; G89.29 Other chronic pain; I10 Essential (primary) hypertension; Y90.9 Presence of alcohol in blood, level not specified; W19.XXXA Unspecified fall, initial encounter
CPT/HCPCS: 36415; 70450; 72131; 80053; 81003; 83690; 85025; 85055; 99284

== ENCOUNTER 2024-11-19 16:32 | Emergency (ER) | payer OTHER, SELFPAY ==
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
--- OUTSIDE RECORDS SUMMARY | 2024-11-19 16:35 | XMS_ITS | Clinical Summary ---
Author Organization [facility] Address [facility] [place] [address] Care Team Providers Care Demonstrator [employer] Name Role Phone Ruma Meade MD Primary Care Provider [phone] Allergies No known active allergies Medications gabapentin (NEURONTIN) 300 MG capsule Take 400 mg by mouth 3 (three) times daily. 11/03/2023 Active sertraline (ZOLOFT) 100 MG tablet daily. Active LORazepam (ATIVAN) 2 MG tablet daily. Active hydrOXYzine (VISTARIL) 25 MG capsule 06/12/2024 Active pantoprazole EC (PROTONIX) 40 MG tablet Oral; Duration: 30 Days 05/08/2024 Active traZODone (DESYREL) 150 MG tablet 1 tablet at bedtime Oral at bedtime; Duration: 30 days Active potassium chloride CR (K-TAB) 20 MEQ tablet Take 1 tablet (20 mEq total) by mouth daily for 10 days. 10 tablet 11/07/2024 11/18/19 25 Active Problems Problem Noted Date Diagnosed Date Alcoholic pancreatitis (HHS/HCC) 01/13/2023 Pancreatitis (HHS/HCC) 01/11/2023 Encounters Date Type Department Care Team Description 11/07/2024 6:06 AM CDT - 11/07/2024 8:40 AM T Emergency [facility] [address] [place] [address] [place] [address] Abdominal Pain Discharge Disposition: Home or Self Care (Routine Discharge) 11/07/2024 Travel from Last 3 Months Family History Relation [...] place to sleep or slept in a mcc (including now)? Yes 01/11/2023 Comments No Sex and Gender Information Value Date Recorded Sex Assigned at Female 05/25/2024 11:14 AM COMMUNICATIONS SENIOR ASSOCIATE Legal Sex Female 2:39 PM CDT Gender Identity Not on file Sexual Orientation Not on file Last Filed Vital Signs Vital Sign Reading Time Taken Comments Blood Pressure 154/84 11/07/2024 8:27 AM CDT Pulse 83 11/07/2024 6:11 AM CDT Temperature 35.9 C (96.6 F) 11/07/2024 6:11 AM CDT Respiratory Rate 20 11/07/2024 6:11 AM CDT Oxygen Saturation 95% 11/07/2024 8:27 AM CDT Inhaled Oxygen Concentration - - Weight 69.3 kg (152 lb 12.8 oz) 11/07/2024 6:11 AM CDT Height 162.6 cm (5' 4) 11/07/2024 6:11 AM CDT Body Mass Index 26.23 11/07/2024 6:11 AM CDT Plan of Treatment Health Maintenance Due [...] Procedure Name Priority Date/Time Associated Diagnosis Comments HC URINALYSIS AUTO W/MICRO STAT 11/07/2024 6:35 AM CDT LIPASE STAT 11/07/2024 6:28 AM CDT COMPREHENSIVE METABOLIC PANEL STAT 11/07/2024 6:28 AM CDT CBC W/DIFF AUTOMATED STAT 11/07/2024 6:28 AM CDT MG SCREENING W BIRGIT LUCIAN DIGI Routine 03/29/2024 10:02 AM COMMUNICATIONS SENIOR ASSOCIATE Visit for screening mammogram from Last 3 Months or Most Recently Relevant to Health Maintenance Results * (ABNORMAL) URINALYSIS (11/07/2024 6:35 AM CDT) COLOR (U) DARK YELLOW 11/07/2024 6:55 AM CDT [facility] TRANSPARENCY CLEAR 11/07/2024 6:55 AM CDT [facility] SPECIFIC GRAVITY (U) 1.015 1.000 - 1.025 11/07/2024 6:55 AM CDT [facility] U PH 6.5 5.0 - 8.0 11/07/2024 6:55 AM CDT [facility] LEUKOCYTES (U) NEGATIVE NEGATIVE 11/07/2024 6:55 AM CDT [facility] NITRITES NEGATIVE NEGATIVE 11/07/2024 6:55 AM CDT [facility] PROTEIN RANDOM (U) NEGATIVE NEGATIVE 11/07/2024 6:55 AM CDT [facility] GLUCOSE (U) NEGATIVE NEGATIVE 11/07/2024 6:55 AM CDT [facility] KETONES MG/DL (U) NEGATIVE NEGATIVE 11/07/2024 6:55 AM CDT [facility] UROBILINOGEN 8.0(H) <1.0 EU/DL 11/07/2024 6:55 AM CDT [facility] Comment:EQUAL TO OR GREATER THAN BILIRUBIN (U) NEGATIVE NEGATIVE 11/07/2024 6:55 AM CDT [facility] BLOOD (U) NEGATIVE NEGATIVE 11/07/2024 6:55 AM CDT [facility] WBC/HPF 0-5 0 - 5 /HPF 11/07/2024 6:55 AM CDT [facility] RBC/HPF 0-5 0 - 5 /HPF 11/07/2024 6:55 AM CDT [facility] EPI/LPF OCCASIONAL /LPF 11/07/2024 6:55 AM CDT [facility] BACTERIA (U) 1+ /HPF 11/07/2024 6:55 AM CDT [facility] MUCUS PRESENT 11/07/2024 6:55 AM CDT [facility] URINE SPECIMEN OBTAINED BY CLEAN CATCH PROCEDURE / Unknown 11/07/2024 6:35 AM CDT us Yovanny Tavares MD URINE ORDERABLES Final Result [facility] [address] [place] [address], * (ABNORMAL) COMPREHENSIVE METABOLIC PANEL (11/07/2024 6:28 AM CDT) SODIUM S/P/B 137 136 - 145 MMOL/L 11/07/2024 7:03 AM CDT [facility] POTASSIUM S/P/B 3.0(L) 3.5 - 5.1 MMOL/L 11/07/2024 7:03 AM CDT [facility] CHLORIDE S/P/B 99 98 - 107 MMOL/L 11/07/2024 7:03 AM CDT [facility] CO2 27.0 21.0 - 32.0 MMOL/L 11/07/2024 7:03 AM CDT [facility] GLUCOSE 92 70 - 99 MG/DL 11/07/2024 7:03 AM CDT [facility] Comment: FASTING GLUCOSE 100 TO 125 MG/DL IS CONSISTENT WITH IMPAIRED FASTING GLUCOSE. FASTING GLUCOSE >125 MG/DL IS CONSISTENT WITH DIABETES. RANDOM GLUCOSE >200 MG/DL WITH HYPERGLYCEMIC SYMPTOMS IS CONSISTENT WITH DIABETES. PER ADA GUIDELINES BUN 11 6 - 24 MG/DL 11/07/2024 7:03 AM CDT [facility] CREATININE S/P/B 0.69 0.55 - 1.02 MG/DL 11/07/2024 7:03 AM CDT [facility] CALCIUM S/P/B 9.7 8.4 - 10.5 MG/DL 11/07/2024 7:03 AM [facility] BILIRUBIN TOTAL S/P/B 1.6(H) 0.2 - 1.0 MG/DL 11/07/2024 7:03 AM [facility] Comment: THIS ASSAY IS NOT RECOMMENDED FOR PATIENTS UNDERGOING TREATMENT WITH ELTROMBOPAG DUE TO THE POTENTIAL FOR FALSELY ELEVATED RESULTS. ALKALINE PHOSPHATASE S/P/B 92 41 - 108 U/L 11/07/2024 7:03 AM [facility] AST 36 15 - 37 U/L 11/07/2024 7:03 AM [facility] ALT 29 14 - 59 U/L 11/07/2024 7:03 AM [facility] TOTAL PROTEIN S/P/B 8.5(H) 6.4 - 8.2 G/DL 11/07/2024 7:03 AM [facility] ALBUMIN S/P/B 3.9 3.4 - 5.0 G/DL 11/07/2024 7:03 AM [facility] ANION GAP 11.0 5.0 - 15.0 MMOL/L 11/07/2024 7:03 AM [facility] OSMOLALITY (CALC) 283 MOSM/KG 025 7:03 AM [facility] Comment:REFERENCE RANGE NOT ESTABLISHED GFR ESTIMATE >90 >89 ML/MIN/1. 73 M2 11/07/2024 7:03 AM [facility] GFR NOTES GFR REFERENCE S: 11/07/2024 7:03 AM [facility] Comment: THE ESTIMATED GFR IS [...] ml/min/1.73 m2 G5,KIDNEY FAILURE: <15 ml/min/1.73 m2 11/07/2024 6:28 AM CDT Yovanny Tavares MD LABORATORY Final Result [facility] [address] [place] [address], * (ABNORMAL) CBC W/DIFF AUTOMATED (11/07/2024 6:28 AM CDT) Pathologist [facility] WBC 3.54(L) 4.00 - 10.80 x10'3/uL 11/07/2024 6:57 AM CDT [facility] RBC 4.31 4.10 - 5.40 x10'6/uL 11/07/2024 6:57 AM CDT [facility] HGB 13.5 12.0 - 16.0 G/DL 11/07/2024 6:57 AM CDT [facility] HCT 38.5 36.0 - 47.0 % 11/07/2024 6:57 AM CDT [facility] MCV 89.3 78.0 - 100.0 FL 11/07/2024 6:57 AM CDT [facility] MCH 31.3(H) 27.0 - 31.0 PG 11/07/2024 6:57 AM CDT [facility] MCHC 35.1 33.0 - 36.0 G/DL 11/07/2024 6:57 AM CDT [facility] RDW 12.7 11.5 - 14.5 % 11/07/2024 6:57 AM CDT [facility] PLT 99(L) 150 - 350 x10'3/uL 11/07/2024 6:57 AM CDT [facility] MPV 10.3 7.4 - 10.4 FL 11/07/2024 6:57 AM CDT [facility] CBC COMMENT NORMAL REFERENCE RANGE NOT ESTABLISHED FOR THE PROPORTIONAL LEUKOCYTE DIFFERENTIAL. 11/07/2024 6:57 AM CDT [facility] NEUTROPHILS % 58.1 % 11/07/2024 7:21 AM CDT [facility] LYMPHOCYTES % 27.1 % 11/07/2024 7:21 AM CDT [facility] MONOCYTES % 13.3 % 11/07/2024 7:21 AM CDT [facility] EOSINOPHILS % 0.6 % 11/07/2024 7:21 AM CDT [facility] BASOPHILS % 0.6 % 11/07/2024 7:21 AM CDT [facility] IMMATURE GRANS % 0.3 % 11/08/19 7:21 AM CDT [facility] NRBC % 0.0 % 11/07/2024 7:21 AM CDT [facility] ABS. NEUTROPHILS 2.06 1.60 - 8.30 x10'3/uL 11/07/2024 7:21 AM CDT [facility] ABS. LYMPHOCYTES 0.96 0.80 - 4.70 x10'3/uL 11/07/2024 7:21 AM CDT [facility] ABS. MONOCYTES 0.47 0.00 - 1.50 x10'3/uL 11/07/2024 7:21 AM CDT [facility] ABS. EOSINOPHILS 0.02 0.00 - 0.40 x10'3/uL 11/07/2024 7:21 AM CDT [facility] ABS. BASOPHILS 0.02 0.00 - 0.20 x10'3/uL 11/07/2024 7:21 AM CDT [facility] ABS. IMMATURE GRANULOCYTES 0.01 0.00 - 0.03 x10'3/uL 11/07/2024 7:21 AM CDT [facility] ABS. NUCLEATED RBC'S 0.00 0.00 - 0.01 x10'3/uL 11/07/2024 7:21 AM CDT [facility] PLT MORPH. DECREASED 11/07/2024 7:21 AM CDT [facility] RBC MORPHOLOGY NORMAL 11/07/2024 7:21 AM CDT [facility] 11/07/2024 6:28 AM CDT us Yovanny Tavares MD LABORATORY Final Result Performing Organization Address City/[facility]/ZIP Co de Phone Number [facility] [address] [place] [phone], * LIPASE (11/07/2024 6:28 AM CDT) LIPASE 67 16 - 77 UNITS/L 11/07/2024 7:03 AM CDT [facility] 11/07/2024 6:28 AM CDT us Yovanny Tavares MD LABORATORY Final Result Performing Organization Address [facility] de Phone Number [facility] [address] [place] [phone], * MG SCREENING W BIRGIT LUCIAN DIGI (03/29/2024 10:02 AM COMMUNICATIONS SENIOR ASSOCIATE) Anatomical Region Laterality Modality Breast Bilateral Mammography 03/29/2024 11:5 4 AM COMMUNICATIONS SENIOR ASSOCIATE Impressions 03/29/2024 11:55 AM COMMUNICATIONS SENIOR ASSOCIATE IMPRESSION: No mammographic evidence of malignancy. Recommendation: 1: Routine Screening Bilateral in 1 Year Assessment: ACR BI-RADS 2 - BENIGN FINDING(S) Ordered By: BLADIMIR LATHAM Interpreted By: Varun Quevedo MD, 03/29/2024 11:54 AM Narrative 03/29/2024 11:55 AM COMMUNICATIONS SENIOR ASSOCIATE [address] [place] [address] Examination: Digital screening mammogram with CAD. Clinical [...] Recently Relevant to Health Maintenance Insurance MEDICAID Advance Directives * Full Code (Latest Code Status on File) Date Activated Date Inactivated Comments 01/11/2023 7:19 PM 01/14/2023 10:44 PM Care Teams [employer] Relationship Specialty Start Date End Date Ruma Meade MD [address] [place] [phone] PCP - General FAMILY PRACTICE 03/18/24
--- OUTSIDE RECORDS SUMMARY | 2024-11-19 16:35 | XMS_ITS | Patient Health Record ---
Author Organization [facility] Address [address] [place] [address] Care Team Providers Care Arc Welding Machine Operator Name Role Phone Holli Keith Primary Care Provider Chanel Baires Unavailable [phone] Lien Strong Unavailable [phone] Leonila Hinton Unavailable [phone] Ana Zafar Unavailable [phone] Lesly Valenzuela Unavailable [phone] Lien Higuera Unavailable [phone] Allergies Allergen (clinical drug ingredient) Drug/Non Drug Allergy documented on EMR Reaction Allergy Type Onset Date Status No Known Drug Allergy Unknown Drug Allergy Active Results Component Value Reference Range Notes 12 [...] Urine NEG Negative - Negative Breathalyzer Reviewed date:09/27/2024 03:16:03 PM Interpretation: Performing Lab: Notes/Report: DENILSON 0.000 Test, Urine Reviewed date:09/27/2024 03:19:01 PM Interpretation: Performing Lab: Notes/Report: Test, Urine neg Negative - Negative QuantiFERON-TB Gold Plus ([id number]) Reviewed date:10/03/2024 06:57:06 AM Interpretation:Normal Performing Lab:[facility], [address] [facility], Phone - [phone], Director - [facility] Notes/Report: QuantiFERON Incubation Incubation performed. QuantiFERON-TB Gold [...] Screen *HIV 1, 2 Ab, p24 Ag ([id number]) Reviewed date:10/03/2024 06:57:06 AM Interpretation:Normal Performing Lab:[facility], [address] [facility], Phone - [phone], Director - [facility] Notes/Report: HIV Ab/p24 Ag Screen Non Reactive Non Reactive HIV-1/HIV-2 antibodies and HIV-1 p24 antigen were NOT detected. There is no laboratory evidence of HIV infection. HIV Negative CMP 14 Comprehensive Metabol ic Panel* Reviewed date:10/03/2024 06:57:06 AM Interpretation: Performing Lab:[facility], [address] [facility], Phone - [phone], Director - [facility] Notes/Report: Glucose 86 70-99 mg/dL BUN 23 [...] 0-40 IU/L ALT (SGPT) 23 0-32 IU/L Reason For Referral No Information Medications Medication [...] 28 days; Duration: 28 days 06/13/2024 Not-Phil meier traZODone HCl 150 MG 1 tablet at [...] at bedtime; Duration: 30 days Active Creon [id number] UNIT as directed Orally 3 times a [...] with others, in a hotel, in a penitentiary, living outside on the street, on a [...] phone, visiting friends or family, going to druze or club meetings) 1 or 2 times a week How stressed are you? Stress is when someone feels tense, nervous, anxious, or can\t sleep at night because their mind is troubled Very much In the past year have you sp ent more than 2 nights in a row in a [place]f, [place] health [place] facility, senior living center, or juvenile correctional facility? [...] W/U Status Risk Notes Problem Anxiety disorder (625524198) Anxiety disorder, unspecified (F41.9) 09/29/19 Active confirmed Problem Borderline personality disorder (76302603) Borderline personality disorder (F60.3) 09/29/19 Active confirmed Problem General examination of patient (617862299) Routine general medical examination at a health care facility (Z00.00) Active confirmed Problem Bipolar disorder (87816592) Bipolar disorder (F31.9) Active confirmed Self reported diagnosis. Scheduled for full psychiatric eval. Problem Overweight (144919701) Over weight (E66.3) Active confirmed Problem Insomnia due to mental disorder (49251952) Insomnia due to mental disorder (F51.05) 09/29/19 Active confirmed Problem Alcohol use disorder (6828088096) Alcohol use disorder (F10.99) 09/29/19 Active confirmed Problem Nightmares (647941981) Nightmares (F51.5) 09/29/19 Active confirmed Problem Overweight (074411528) Overweight (BMI 25.0-29.9) (E66.3) Active confirmed Problem Adjustment disorder (15202738) Trauma and stressor-relat ed disorder (F43.9) 09/29/19 [...] 10/03/2024 Encounters Encounter Location Date Provider Diagnosis [facility] [address] [place] [address] 06/12/2024 Lien Higuera ETOH abuse F10.10 and Bipolar disorder F31.9 [facility] [address] [place] [address] 06/12/2024 Holli Keith Adult general medical exam Z00.00 ; Nutritional counseling Z71.3 and ETOH abuse F10.10 [facility] [address] [place] [address] 06/13/2024 Chanel Baires Alcohol use disorder F10.99 ; Overweight (BMI 25.0-29.9) E66.3 and Nutritional counseling Z71.3 [place] [address] [address] 06/13/2024 Lesly Valenzuela Bipolar disorder F31.9 and Alcohol use disorder F10.99 [facility] [address] [place] [address] 09/27/2024 Chanel Baires Routine general medical examination at a health care facility Z00.00 and Over weight E66.3 [facility] [address] [place] [address] 09/27/2024 Lien Strong [place] [address] [address] 09/28/2024 Ana Zafar Trauma and stressor-related disorder F43.9 ; Anxiety disorder, unspecified F41.9 ; Alcohol use disorder F10.99 ; Borderline personality disorder F60.3 ; Nightmares F51.5 and Insomnia due to mental disorder F51.05 [facility] [address] [facility] [place] [address] 10/03/2024 Leonila Hinton Over weight E66.[address] [place] [address] 06/14/2024 Ana Zafar Assessments Encounter Date Diagnosis [...] who presents for a psychiatric evaluation over [facility] and is located in [place]. PHQ-9 score of 24, TR-7 score of 21, MDQ with 6 yes. Currently prescribed Prazosin 2 mg, Trazodone 150 mg, Zoloft 100 mg, Lorazepam 0.5 mg daily (last fill 08/21/24), Hydroxyzine 25 mg daily, and Seroquel 25 mg for the reported diagnoses of borderline personality disorder, PTSD, anxiety, and depression. Currently, on the crisis unit admitted yesterday with intent to move to [facility]. Report severe alcohol use disorder with recent [...] or be administered own oral medications per [facility] protocols. Provided informed consent with understanding of side effects, adverse effects, risks and benefits as well as alternative treatments as previously discussed and with the above recommended medications & other aspects of the treatment program. Agrees to return sooner if symptoms worsen or suicidal or homicidal ideations occur. 06/12/2024 Other Clinician met w [facility] client to assess needs for residential services. Clinician gathered information regarding historical presentation of mental health and substance use symptoms including withdrawal, HIV Risk assessment, psychiatric hospitalization history and presenting concern. Clinician conducted PHQ9 and CSSRS assessments as well as social drivers of health screening for the purposes of identifying additional service needs. 06/12/2024 Other Continue treatment as recommended by [facility] Crisis Residential Unit staff. Encouraged patient to obtain routine medical care with patient's own primary care provider or establish as a patient at [facility] if no current primary care provider. 06/13/2024 Other Discussed medication side effects, adverse effects, risks, benefits, as well as interactions. Encouraged non-use of alcohol. Has Vivitrol alert bracelet, necklace and wallet card. Recommended participation in recovery groups/counseling services. Agrees to contact office with questions or concerns. Patient may self-administe r their own medications or may self-administe r their own oral medications per [facility] Protocol. 09/27/2024 Other Clinician met w [facility] client to assess needs for residential services. [...] Start Date Coverage End Date [employer] [facility] [address] [place] [address] [id number] Latrice Valencia Self - patient is the insured [address] [facility] [address] [address] [place] [address] [id number] Latrice Valencia Self - patient is the insured 5 [employer] Better [facility] [address] [place] [address] [id number] Latrice Valencia Self - patient is the insured 3 Medications Administered Medication Instructions Date of Administration Dosage Notes Vivitrol 06/13/2024 380 mg Sima Pete 06/13/2024 03:34:51 PM QUALITY REVIEW SPECIALIST > Intramuscular injection administered into the R [...] many times to count while living in [place] [facility] - suicide attempt by gun 11/2023 [facility] for pancreatitis
--- OUTSIDE RECORDS SUMMARY | 2024-11-19 16:35 | XMS_ITS | Clinical Summary ---
Author Organization [facility] Address [address] [place] [address] Care Team Providers Care Air Tank Assembler Name Role Phone Bladimir Crowder MD Primary Care Provider [phone] Allergies No known active allergies Medications gabapentin [...] 5 Active polyethylene glycol (MIRALAX) 17 gram packetIndications: constipation Take 1 packet (17 g total) by mouth daily 30 packet 5 Active magnesium oxide (MAG-OX) 400 mg (241.3 mg elemental magnesium) tabletIndications: hypomagnesemia Take 1 tablet (400 mg total) by mouth daily Active traZODone (DESYREL) 150 mg tablet Take 1 tablet (150 mg total) by mouth nightly Active sertraline (ZOLOFT) 100 mg tablet Take 1 tablet (100 mg total) by mouth daily 5 Active Active Problems Problem Noted Date Diagnosed Date Alcohol withdrawal, uncomplicated 09/21/2024 Alcohol use disorder 08/15/2024 Generalized anxiety disorder 08/15/2024 History of posttraumatic stress disorder (PTSD) 08/15/2024 Acute on chronic pancreatitis 08/15/2024 Neutropenia 06/11/2024 Leukopenia 06/11/2024 Chronic pancreatitis 06/09/2024 Assessment & Plan (06/09/2024 3:43 PM KITCHEN CHEF): Chronic hx. Managed w/ Creon TID. Pt has non-specific abdominal pain in the setting of alcohol withdrawal. Amylase and lipase are normal. Acute pancreatitis is unlikely. Plan: - Continue Creon - Monitor IV fluids - If abdominal pain persists or worsens, consider CT abdomen Cirrhosis 06/09/2024 Assessment & Plan (06/09/2024 3:33 PM KITCHEN CHEF): Chronic hx. LFTs are normal. PT, PTT, and INR are normal. Currently stable Plan: - Monitor for symptoms Unspecified mood disorder 05/02/2024 Alcohol withdrawal syndrome without complication 04/25/2024 Assessment & Plan (06/09/2024 3:42 PM KITCHEN CHEF): 49 y/o female w/ alcohol use disorder, [...] Type Department Care Team Description 09/27/2024 Documentation [facility] Warm Hand Off Program [address] [place], [place] [phone] Latrice Dumont 09/26/2024 Documentation [facility] [address] [place], [place] [phone] Jana Hilario 09/26/2024 Documentation [facility] [address] [place], [place] [phone] Jana Hilario 09/25/2024 Documentation [facility] [address] [place], [place] [phone] HilarioJana garcía 09/24/2024 Documentation [facility] Off Program [address] [place] [address] Bo Rojas 09/22/2024 Documentation [facility] Warm [facility] Off Program [address] [place], [place] [phone] Bo Rojas 09/21/2024 1:40 PM CDT - 09/27/2024 12:00 PM CDT Hospital Encounter [facility] Medical [facility] [address] [place] [address] Vivek Almonte, DO Mandujano, Marine Christian, Alcohol withdrawal, uncomplicated (HCC) (Primary Dx) Discharge Disposition: Discharge to home or self care 09/21/2024 10:30 AM CDT Lab [address] [address] 09/21/2024 [facility] Enrollment [facility] Warm Hand Off Program [address] [place] [address] Latrice Dumont from Last 3 Months Social [...] Recommended Domains Addressed Status Status Reason/Outcome Date/Time [facility] Post-Trauma Therapy and Support Intimate Partner [...] WITHOUT DIFFERENTIAL STAT 09/21/2024 9:44 AM CDT HEPATITIS PANEL, ACUTE Routine 06/11/2024 11:59 AM KITCHEN CHEF from Last 3 Months or Most Recently Relevant to Health Maintenance Results * Urinalysis reflex to microscopic and culture Urine (09/25/2024 2:17 PM CDT) Color, ur Yellow Yellow Clarity, ur Clear Clear [facility] ([place]) Specific gravity, ur 1.011 1.003 - 1.030 [facility] ([place]) pH, urine 7.0 [facility] ([place]) Comment: Interpretive Data U rine pH is affected by diet, medications, systemic acid-base disturbances, and renal tubular function. pH may affect urinary stone formation. For example, urine pH below 6.0 may help reduce the tendency for calcium phosphate stones and pH greater than 6.0 may reduce the tendency for uric acid stone formation. Source: [facility] Current Interpretive Data was last revised on [...] CDT 09/25/2024 2:19 PM CDT Vivek Serrano [facility] DO LAB MICROBIOLOGY - GEN ERAL ORDERABLES Final Result [facility] ([place]) [address] [facility] [place] [address] * XR CHEST 1 VIEW PORTABLE (09/25/2024 [...] Dong Thorne M.D. RB: ADALID Report ID: [id number] Reading Location: [id number] Procedure Note Dong Thorne MD - 09/25/2024 [...] Dong Thorne M.D. RB: ADALID Report ID: [id number] Reading Location: [id number] Vivek [address] [facility] DO IMG XR PROCEDURES Maeve l [...] Bo Travis M.D. DORIS: DORIS Report ID: [id number] Reading Location: [id number] Procedure Note Bo Travis MD - 09/25/2024 [...] Bo Travis M.D. DORIS: DORIS Report ID: [id number] Reading Location: [id number] Vivek Almonte DO IMG CT PROCEDURES Maeve l Result * Troponin T high-sensitivity 6-hour (09/24/2024 1:28 AM CDT) Trop T hs <6 <=14 ng/L Comment: Interpretive Data For further hscTnT resources including the diagnostic algorithm and an aid in interpretation, copy and paste this link: https://nrl.[employer].org/show/hsTrop Current Interpretive Data last revised 2020. Trop T hs delta 0 ng/L [facility] ([facility]) Trop T hs interp Insignificant [facility] ([place]) Blood 09/24/2024 1:28 AM CDT 09/24/2024 1:40 AM CDT Vivek Almonte DO LAB BLOOD ORDERABLES F inal Result Performing Organization Address City/[facility]/ZIP Co de Phone Number [facility] ([place]) [address] [facility] [place] [address] * Troponin T high-sensitivity 4-hour (09/23/2024 11:24 PM CDT) Trop T hs <6 <=14 ng/L Comment: Interpretive Data For further hscTnT resources including the diagnostic algorithm and an aid in interpretation, copy and paste this link: https://nrl.[employer].org/show/hsTrop Current Interpretive Data last revised 2020. Trop T hs delta 0 ng/L [facility] ([place]) Trop T hs interp Insignificant [facility] ([place]) Blood 09/23/2024 11:2 4 PM CDT 09/23/2024 11:27 PM CDT Vivek Almonte DO LAB BLOOD ORDERABLES F inal Result [facility] ([place]) [address] [place] [address] * Troponin T high-sensitivity 2-hour (09/23/2024 9:14 PM CDT) Trop T hs <6 <=14 ng/L Comment: Interpretive Data For further hscTnT resources including the diagnostic algorithm and an aid in interpretation, copy and paste this link: https://nrl.[employer].org/show/hsTrop Current Interpretive Data last revised 2020. Trop T hs delta 0 ng/L [facility] ([place]) Trop T hs interp Insignificant [facility] ([place]) Blood 09/23/2024 9:1 4 PM CDT 09/23/2024 9:17 PM CDT Vivek Almonte DO LAB BLOOD ORDERABLES F inal Result Performing Organization Address [facility]/ZIP Co de Phone Number [facility] ([place]) [address] [place] [address] * Troponin T high-sensitivity series (baseline, 2hr, 4hr, 6hr) (09/23/2024 7:16 PM CDT) Pathologist [facility] Trop T hs <6 <=14 ng/L Comment: Interpretive Data For further hscTnT resources including the diagnostic algorithm and an aid in interpretation, copy and paste this link: https://nrl.[employer].org/show/hsTrop Current Interpretive Data last revised 2020. Blood 09/23/2024 7:16 PM CDT 09/23/2024 7:26 PM CDT us Vivek Almonte DO LAB BLOOD ORDERABLES F inal Result [facility] ([place]) [address] [place] [address] * ECG 12 lead (09/23/2024 6:15 PM CDT) 09/23/2024 6:15 PM CDT Narrative [facility] - 09/24/2024 6:38 AM CDT Vent Rate: 60 bpm RR Interval: 995 msec AR Interval: 174 msec QRS Duration: 77 msec QT Interval: 426 msec QTC Interval: 426 msec P-R-T Widener: 75 - 86 - 68 degrees IMPRESSION: SINUS RHYTHM NORMAL ECG NO CHANGE FROM PREVIOUS TRACING NOTED Electronically Signed By: Kwaku Blanco MD Vivek Almonte DO ECG ORDERABLES Final Result [facility] * eGFR (09/22/2024 10:19 AM CDT) eGFR [...] BLOOD ORDERABLES F inal Result [facility] ([place]) [address] [facility] [place] [address] * Basic metabolic panel (09/22/2024 10:19 AM CDT) Sodium 142 135 - 145 mmol/L Potassium, pl 4.0 3.3 - 4.9 mmol/L [facility] ([place]) Chloride 106 97 - 110 mmol/L [facility] ([place]) CO2 24 22 - 32 mmol/L [facility] ([place]) Anion gap 12 2 - 15 mmol/L [facility] ([place]) BUN 9 6 - 25 mg/dL [facility] ([place]) Creatinine 0.65 0.60 - 1.10 mg/dL [facility] ([place]) Glucose 94 70 - 199 mg/dL [facility] ([place]) Comment: Interpretive Data Fasting glucose [...] 2022. Calcium 9.1 8.5 - 10.3 mg/dL [facility] ([place]) Blood 09/22/2024 10:1 9 AM CDT 09/22/2024 10:40 AM CDT Vivek Almonte DO LAB BLOOD ORDERABLES F inal Result [facility] ([place]) [address] [facility] [place] [address] * eGFR (09/21/2024 9:44 AM CDT) Pathologist [facility] eGFR >90 >=60 mL/min/1. 73 m2 [...] BLOOD ORDERABLES Final Re sult [facility] ([place]) [address] [facility] [place] [address] * (ABNORMAL) Drugs of Abuse Screen, Urine [...] CDT 09/21/2024 9:49 AM CDT Narrative [facility] ([place]) - 09/21/2024 10:19 AM CDT Drug of Abuse screening is performed by immunoassay for medical purposes only. This is not to be used for Pain Management purposes. us Jesenia Mckeon MD LAB URINE ORDERABLES Final Re sult [facility] ([place]) [address] [facility] [place] [address] * (ABNORMAL) CBC without differential (09/21/2024 9:44 [...] NRBC abs 0.00 0.00 - 0.01 K/cumm [facility] ([place]) Blood 09/21/2024 9:44 AM CDT 09/21/2024 9:49 AM CDT us Jesenia Mckeon MD LAB BLOOD ORDERABLES Final Re sult [facility] ([place] [address] [facility] [place] [address] * (ABNORMAL) Comprehensive metabolic panel (09/21/2024 9:44 [...] (ALLI) Glucose 121 70 - 199 mg/dL [facility] ([place]) Comment: Interpretive Data Fasting glucose [...] Final Re sult [facility] ([place]) [address] [facility] [place] [address] * Hepatitis panel, acute Blood (06/11/2024 11:59 AM KITCHEN CHEF) Hep A IgM Nonreactive Nonreactive Comment: Interpretive Data: If Hep A IgM Ab is reported as Equivocal, a new sample should be drawn in two weeks for testing. Current interpretive data was last revised on 19. Testing performed by: [address] [address] Hep B core IgM Nonreactive Nonreactive [facility] ([facility]) Comment: Interpretive Data If HepB Core IgM Ab is reported as Equivocal, a new sample should be drawn in two weeks for testing. Current interpretive data was last revised on 19. Testing performed by: [facility], [address] [place] [address]., [id number] Hep C Ab Nonreactive Nonreactive [facility] ([place]) Comment: Interpretive Data Nonreactive: Antibodies [...] last revised on 2019. Testing performed by: [facility], [address] [place] [address]., [id number] HepBsAg Nonreactive Nonreactive [facility] ([place]) Comment:Testing performed by : [facility], [address] [place] [address]., [id number] Blood 06/11/2024 11:5 9 AM KITCHEN CHEF 06/11/2024 1:56 PM KITCHEN CHEF Dana Maradiaga MD LAB MICROBIOLOGY - GENERAL ORDERABLES Final Result [facility] ([place]) [address] [facility] [place] [address] from Last 3 Months or Most Recently Relevant to Health Maintenance Insurance [employer] Advance Directives For more information, please contact: [phone] * Full Code (Latest Code Status on File) Date Activated Date Inactivated Comments 09/21/2024 6:35 PM 09/27/2024 4:14 PM * Full Code Date Activated Date Inactivated Comments 08/15/2024 3:03 PM 08/17/2024 6:27 PM * Full Code Date Activated Date Inactivated Comments 06/09/2024 2:35 PM 06/12/2024 5:25 PM * Full Code Date Activated Date Inactivated Comments 04/25/2024 5:41 PM 05/07/2024 7:44 PM Care Teams Air Tank Assembler Relationship Specialty Start Date End Date Bladimir Crowder MD [address] [place] [id number] PCP - General Family Medicine 04/25/24
[2024-11-19 16:40] VITALS: BP 149/101; PULSE 80; RESP 18; TEMP 36.7; O2SAT 97
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
--- OUTSIDE RECORDS SUMMARY | 2024-11-19 16:56 | XMS_ITS | Clinical Summary ---
Author Organization [facility] Address [facility] [place] [address] Care Team Providers Care Plumbing Technician Name Role Phone Ruma Meade MD Primary Care Provider +1- [phone] Allergies No known active allergies Medications gabapentin [...] Encounters Date Type Department Care Team Description 11/19/2024 Emergency [facility] Emergency [address] [place] [address] 11/07/2024 6:06 AM CDT - 11/07/2024 8:40 AM CDT Emergency [facility] [address] [place] [address] Abdominal Pain Discharge Disposition: Home or Self [...] place to sleep or slept in a residential (including now)? Yes 01/11/2023 Comments No Sex and Gender Information Value Date Recorded Sex Assigned at Female 05/25/2024 11:14 AM BINGO MANAGER Legal Sex Female 2:39 PM CDT [...] BIRGIT LUCIAN DIGI Routine 03/29/2024 10:02 AM BINGO MANAGER Visit for screening mammogram from Last 3 Months or Most Recently Relevant to Health Maintenance Results * (ABNORMAL) URINALYSIS (11/07/2024 6:35 AM CDT) COLOR (U) DARK YELLOW 11/07/2024 6:55 AM CDT [facility] TRANSPARENCY CLEAR 11/07/2024 6:55 AM CDT [facility] SPECIFIC GRAVITY (U) 1.015 1.000 - 1.025 11/07/2024 6:55 AM CDT [facility] U PH 6.5 5.0 - 8.0 11/07/2024 6:55 AM CDT [facility] LEUKOCYTES (U) NEGATIVE NEGATIVE 11/07/2024 6:55 AM CDT [facility] NITRITES NEGATIVE NEGATIVE 11/07/2024 6:55 AM CDT [facility] PROTEIN RANDOM (U) NEGATIVE NEGATIVE 11/07/2024 6:55 AM CDT [facility] GLUCOSE (U) NEGATIVE NEGATIVE 11/07/2024 6:55 AM CDT [facility] KETONES MG/DL (U) NEGATIVE NEGATIVE 11/07/2024 6:55 AM CDT [facility] UROBILINOGEN 8.0(H) <1.0 EU/DL 11/07/2024 6:55 AM CDT [facility] Comment:EQUAL TO OR GREATER THAN BILIRUBIN (U) NEGATIVE NEGATIVE 11/07/2024 6:55 AM CDT [facility] BLOOD (U) NEGATIVE NEGATIVE 11/07/2024 6:55 AM CDT [facility] WBC/HPF 0-5 0 - 5 /HPF 11/07/2024 6:55 AM CDT [facility] RBC/HPF 0-5 0 - 5 /HPF 11/07/2024 6:55 AM CDT [facility] EPI/LPF OCCASIONAL /LPF 11/07/2024 6:55 AM CDT [facility] BACTERIA (U) 1+ /HPF 11/07/2024 6:55 AM CDT [facility] MUCUS PRESENT 11/07/2024 6:55 AM CDT [facility] URINE SPECIMEN OBTAINED BY CLEAN CATCH PROCEDURE / Unknown 11/07/2024 6:35 AM CDT us Yovanny Tavares MD URINE ORDERABLES Final Result [facility] [address] [place] [id number], * (ABNORMAL) COMPREHENSIVE METABOLIC PANEL (11/07/2024 6:28 AM CDT) SODIUM S/P/B 137 136 - 145 MMOL/L 11/07/2024 7:03 AM CDT [facility] POTASSIUM S/P/B 3.0(L) 3.5 - 5.1 MMOL/L 11/07/2024 7:03 AM CDT [facility] CHLORIDE S/P/B 99 98 - 107 MMOL/L 11/07/2024 7:03 AM CDT [facility] CO2 27.0 21.0 - 32.0 MMOL/L 11/07/2024 7:03 AM CDT [facility] GLUCOSE 92 70 - 99 MG/DL 11/07/2024 7:03 AM CDT [facility] Comment: FASTING GLUCOSE 100 TO 125 MG/DL IS CONSISTENT WITH IMPAIRED FASTING GLUCOSE. FASTING GLUCOSE >125 MG/DL IS CONSISTENT WITH DIABETES. RANDOM GLUCOSE >200 MG/DL WITH HYPERGLYCEMIC SYMPTOMS IS CONSISTENT WITH DIABETES. PER ADA GUIDELINES BUN 11 6 - 24 MG/DL 11/07/2024 7:03 AM CDT [facility] CREATININE S/P/B 0.69 0.55 - 1.02 MG/DL 11/07/2024 7:03 AM [facility] CALCIUM S/P/B 9.7 8.4 - 10.5 MG/DL 11/07/2024 7:03 AM [facility] BILIRUBIN TOTAL S/P/B 1.6(H) 0.2 - 1.0 MG/DL 11/07/2024 7:03 AM [facility] Comment: THIS ASSAY IS NOT RECOMMENDED FOR PATIENTS UNDERGOING TREATMENT WITH ELTROMBOPAG DUE TO THE POTENTIAL FOR FALSELY ELEVATED RESULTS. ALKALINE PHOSPHATASE S/P/B 92 41 - 108 U/L 11/07/2024 7:03 AM [facility] AST 36 15 - 37 U/L 11/07/2024 7:03 AM [facility] ALT 29 14 - 59 U/L 11/07/2024 7:03 AM [facility] TOTAL PROTEIN S/P/B 8.5(H) 6.4 - 8.2 G/DL 11/07/2024 7:03 AM [facility] ALBUMIN S/P/B 3.9 3.4 - 5.0 G/DL 11/07/2024 7:03 AM [facility] ANION GAP 11.0 5.0 - 15.0 MMOL/L 11/07/2024 7:03 AM [facility] OSMOLALITY (CALC) 283 MOSM/KG 025 7:03 AM [facility] Comment:REFERENCE RANGE NOT ESTABLISHED GFR ESTIMATE >90 >89 ML/MIN/1. 73 M2 11/07/2024 7:03 AM [facility] GFR NOTES GFR REFERENCE S: 11/07/2024 7:03 AM [facility] Comment: THE ESTIMATED GFR IS CALCULATED [...] CDT Yovanny Tavares MD LABORATORY Final Result [facility] [address] [place] [address], * (ABNORMAL) CBC W/DIFF AUTOMATED (11/07/2024 6:28 AM CDT) WBC 3.54(L) 4.00 - 10.80 x10'3/uL 11/07/2024 6:57 AM CDT [facility] RBC 4.31 4.10 - 5.40 x10'6/uL 11/07/2024 6:57 AM CDT [facility] HGB 13.5 12.0 - 16.0 G/DL 11/07/2024 6:57 AM CDT [facility] HCT 38.5 36.0 - 47.0 % 11/07/2024 6:57 AM CDT [facility] MCV 89.3 78.0 - 100.0 FL 11/07/2024 6:57 AM CDT [facility] MCH 31.3(H) 27.0 - 31.0 PG 11/07/2024 6:57 AM CDT [facility] MCHC 35.1 33.0 - 36.0 G/DL 11/07/2024 6:57 AM CDT [facility] RDW 12.7 11.5 - 14.5 % 11/07/2024 6:57 AM CDT [facility] PLT 99(L) 150 - 350 x10'3/uL 11/07/2024 6:57 AM CDT [facility] MPV 10.3 7.4 - 10.4 FL 11/07/2024 6:57 AM CDT [facility] CBC COMMENT NORMAL REFERENCE RANGE NOT ESTABLISHED FOR THE PROPORTIONAL LEUKOCYTE DIFFERENTIAL. 11/07/2024 6:57 AM CDT [facility] NEUTROPHILS % 58.1 % 11/07/2024 7:21 AM CDT [facility] LYMPHOCYTES % 27.1 % 11/07/2024 7:21 AM CDT [facility] MONOCYTES % 13.3 % 11/07/2024 7:21 AM CDT [facility] EOSINOPHILS % 0.6 % 11/07/2024 7:21 AM CDT [facility] BASOPHILS % 0.6 % 11/07/2024 7:21 AM CDT [facility] IMMATURE GRANS % 0.3 % 11/08/19 7:21 AM CDT [facility] NRBC % 0.0 % 11/07/2024 7:21 AM CDT [facility] ABS. NEUTROPHILS 2.06 1.60 - 8.30 x10'3/uL 11/07/2024 7:21 AM CDT [facility] ABS. LYMPHOCYTES 0.96 0.80 - 4.70 x10'3/uL 11/07/2024 7:21 AM CDT [facility] ABS. MONOCYTES 0.47 0.00 - 1.50 x10'3/uL 11/07/2024 7:21 AM CDT [facility] ABS. EOSINOPHILS 0.02 0.00 - 0.40 x10'3/uL 11/07/2024 7:21 AM CDT [facility] ABS. BASOPHILS 0.02 0.00 - 0.20 x10'3/uL 11/07/2024 7:21 AM CDT [facility] ABS. IMMATURE GRANULOCYTES 0.01 0.00 - 0.03 x10'3/uL 11/07/2024 7:21 AM CDT [facility] ABS. NUCLEATED RBC'S 0.00 0.00 - 0.01 x10'3/uL 11/07/2024 7:21 AM CDT [facility] PLT MORPH. DECREASED 11/07/2024 7:21 AM CDT [facility] RBC MORPHOLOGY NORMAL 11/07/2024 7:21 AM CDT [facility] 11/07/2024 6:28 AM CDT us Yovanny Tavares MD LABORATORY Final Result Performing Organization Address [facility] Co de Phone Number [facility] [address] [place] [phone], * LIPASE (11/07/2024 6:28 AM CDT) LIPASE 67 16 - 77 UNITS/L 11/07/2024 7:03 AM CDT [facility] 11/07/2024 6:28 AM CDT us Yovanny Tavares MD LABORATORY Final Result Performing Organization Address [facility] de Phone Number [facility] [address] [place] [phone], * MG SCREENING W BIRGIT LUCIAN DIGI (03/29/2024 10:02 AM BINGO MANAGER) Anatomical Region Laterality Modality Breast Bilateral Mammography 03/29/2024 11:5 4 AM BINGO MANAGER Impressions 03/29/2024 11:55 AM BINGO MANAGER IMPRESSION: No mammographic evidence of malignancy. Recommendation: 1: Routine Screening Bilateral in 1 Year Assessment: ACR BI-RADS 2 - BENIGN FINDING(S) Ordered By: BLADIMIR LATHAM Interpreted By: Varun Quevedo MD, 03/29/2024 11:54 AM Narrative 03/29/2024 11:55 AM BINGO MANAGER [place] [id number] Examination: Digital screening mammogram with CAD. Clinical [...] 7:19 PM 01/14/2023 10:44 PM Care Teams Plumbing Technician Relationship Specialty Start Date End Date Ruma Meade MD [address] [place] [phone] PCP - General FAMILY PRACTICE 03/18/24
--- OUTSIDE RECORDS SUMMARY | 2024-11-19 16:56 | XMS_ITS | Encounter Summary ---
Author Organization [facility] Address [address] [place] [address] Care Team Providers Care Casket Liner Name Role Phone Ruma Meade MD Primary Care Provider [phone] Encounter Details Date Type Department Care Team (Late st Contact Info) Description 11/19/2024 Emergency [facility] Emergency [address] [place] [address] Social History Tobacco Use Types Packs/Day Years [...] place to sleep or slept in a prison (including now)? Yes 01/11/2023 Comments No Sex and Gender Information Value Date Recorded Sex Assigned at Female 05/25/2024 11:14 AM IN [place] Legal Sex Female 2:39 PM CDT Gender [...] documented in this encounter Plan of Treatment Not on file documented as of this encounter Visit Diagnoses Not on filedocumented in this encounter Care Teams Casket Liner Relationship Specialty Start Date End Date Ruma Meade MD [address] [place] [id number] PCP - General FAMILY PRACTICE 03/18/24 documented as of this encounter
== END 2024-11-19 17:28 | disposition short-term general hospital (02) ==
PROVIDERS: Emergency Provider Emergency Medicine; PCP Family Medicine
DX: S29.9XXA Unspecified injury of thorax, initial encounter (principal); S39.91XA Unspecified injury of abdomen, initial encounter; I10 Essential (primary) hypertension; V43.52XA Car driver injured in collision with other type car in traffic accident, initial encounter
CPT/HCPCS: 71045; 99285

== ENCOUNTER 2024-12-19 17:52 | Emergency (ER) | payer OTHER, SELFPAY ==
--- OUTSIDE RECORDS SUMMARY | 2024-06-14 06:00 | XMS_ITS ---
Author Organization [facility] Address [address] [place] [address] Care Team Providers Care Paper Machine Backtender Name Role Phone Holli Keith Primary Care Provider [phone] Ana Zafar [phone] REASON FOR VISIT discharged from [facility] Social History Sex Assigned At : Social History Observation Description Sex Assigned At Female Encounters Encounter Location Date Provider Diagnosis [facility] [address] [place] [address] 06/14/2024 Ana Zafar Plan Of Treatment No Information Progress Notes * Latrice RITCHIEDOB:1975 ([age] yo F)Acc No.[id number]:06/14/2024 UNLOCKED PROGRESS NOTE Patient: Latrice DOWLING Provider: SANIA Sommers :1975 A ge:49 Y S ex:Female Date:06/14/2024 Phone: Address:[address] [facility] Pcp:Holli Keith Subjective: * Chief Complaints: * 1 . discharged from [facility]. * Medical History: Objective: * Vitals: Assessment: Plan: * Treatment: * * Electronic signature of Nohelia Zafar on 12/19/2024 at 05:54 PM CDT Sign off status: Pending * Provider: SANIA Sommers Date: 0 06/14/2024 Generated for Frank meier/Chen[place]/eTransmitting on: 0 12/19/2024 05:54 PM CDT
--- NOTE | ~2024-12-19 | XR_ITS ---
XR hand RT min 3V 12/19/2024 18:15 INDICATION: Right hand pain PROCEDURE: 3 views right hand COMPARISON: No prior studies for comparison. FINDINGS: Fracture, dislocation or subluxation is not identified. There is a healing fracture with callus formation at the proximal aspect of the fourth metacarpal. Osteopenia. No focal soft tissue abnormality. The soft tissues appear within normal limits. No foreign bodies are identified. IMPRESSION: 1: Healing minimally displaced oblique fracture proximal aspect of the fourth metacarpal with callus formation. Reviewed, dictated and finalized at location O. IMPRESSION: 1: Healing minimally displaced oblique fracture proximal aspect of the fourth m etacarpal with callus formation.
[2024-12-19 17:55] VITALS: BP 159/83; PULSE 75; RESP 18; TEMP 36.6; O2SAT 100
--- OUTSIDE RECORDS SUMMARY | 2024-12-19 17:55 | XMS_ITS | Clinical Summary ---
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 IMPRESSION: No mammographic evidence of malignancy. Recommendation: 1: Routine Screening Bilateral in 1 Year Assessment: ACR BI-RADS 2 - BENIGN FINDING(S) Ordered By: BLADIMIR LATHAM Interpreted By: Varun Quevedo MD, 03/29/2024 11:54 AM Narrative 03/29/2024 11:55 AM EXPERIMENTAL MECHANIC ELECTRICAL [address] [address] Examination: Digital screening mammogram with CAD. [...] Most Recently Relevant to Health Maintenance Insurance [employer] Advance Directives * Full Code (Latest Code Status on File) Date Activated Date Inactivated Comments 11/19/2024 8:15 PM 11/20/2024 4:09 PM * Full Code Date Activated Date Inactivated Comments 01/11/2023 7:19 PM 01/14/2023 10:44 PM Care Teams Certified Nursing Assistant Relationship Specialty Start Date End Date Ruma Meade MD [address] [place] [phone] PCP - General FAMILY PRACTICE 03/18/24
--- OUTSIDE RECORDS SUMMARY | 2024-12-19 17:55 | XMS_ITS | Clinical Summary ---
Author Organization [facility] Address [address] [place] [address] Care Team Providers Care Developer Programmer Analyst Name Role Phone Bladimir Crowder MD Primary Care Provider [phone] Allergies No known active allergies Medications gabapentin [...] 06/09/2024 Assessment & Plan (06/09/2024 3:43 PM PPAP COORDINATOR): Chronic hx. Managed w/ Creon TID. Pt has non-specific abdominal pain in the setting of alcohol withdrawal. Amylase and lipase are normal. Acute pancreatitis is unlikely. Plan: - Continue Creon - Monitor IV fluids - If abdominal pain persists or worsens, consider CT abdomen Cirrhosis 06/09/2024 Assessment & Plan (06/09/2024 3:33 PM PPAP COORDINATOR): Chronic hx. LFTs are normal. PT, PTT, and INR are normal. Currently stable Plan: - Monitor for symptoms Unspecified mood disorder 05/02/2024 Alcohol withdrawal syndrome without complication 04/25/2024 Assessment & Plan (06/09/2024 3:42 PM PPAP COORDINATOR): 49 y/o female w/ alcohol use disorder, [...] Encounters Date Type Department Care Team Description 12/13/2024 [facility] Outreach [facility] Warm Hand Off Program [address], [place] [phone] Jaxson Aparicio RRT 09/27/2024 Documentation [facility] Warm Hand Off [facility] [address], [place] [phone] Latrice Dumont 09/26/2024 Documentation [facility] Off [facility] [address], [place] [phone] HilarioJana 09/26/2024 Documentation [facility] Warm Hand Off [facility] [address], [place] [phone] Hilario Jana EValentín 09/25/2024 Documentation [facility] Warm Hand Off Program [address] [place] [address] Hilario Janaroseann Benitez 09/24/2024 Documentation [facility] Warm [facility] Off [facility] [address] [place] [address] Bo Rojas 09/22/2024 Documentation [facility] Warm [facility] Off [facility] [address] [place] [address] Rojas, Bo 09/21/2024 1:40 PM CDT - 09/27/2024 12:00 PM CDT Hospital Encounter [facility] Medical [facility] [address] [place] [phone] Vivek Almonte, [place], Alcohol withdrawal, uncomplicated (HCC) (Primary Dx) Discharge Disposition: Discharge to home or self care 09/21/2024 10:30 AM CDT Lab [address] [phone] 09/21/2024 [facility] Enrollment [facility] Warm Hand Off Program [address] [place] [address] Latrice Dumont from Last 3 Months Social [...] Recommended Domains Addressed Status Status Reason/Outcome Date/Time [facility]Tra[facility] Therapy and Support Intimate Partner [...] HEPATITIS PANEL, ACUTE Routine 06/11/2024 11:59 AM PPAP COORDINATOR from Last 3 Months or Most Recently Relevant to Health Maintenance Results * Urinalysis reflex to microscopic and culture Urine (09/25/2024 2:17 PM CDT) Color, ur Yellow Yellow Clarity, ur Clear Clear [facility] ([place]) Specific gravity, ur 1.011 1.003 - 1.030 [facility] ([facility]) pH, urine 7.0 [facility] ([facility]) Comment: Interpretive Data U rine pH is affected by diet, medications, systemic acid-base disturbances, and renal tubular function. pH may affect urinary stone formation. For example, urine pH below 6.0 may help reduce the tendency for calcium phosphate stones and pH greater than 6.0 may reduce the tendency for uric acid stone formation. Source: [facility] [employer] Current Interpretive Data was last revised on [...] CDT 09/25/2024 2:19 PM CDT Vivek Serrano [facility] DO LAB MICROBIOLOGY - GEN ERAL ORDERABLES Final Result [facility] (ALLI) [address] [facility] Department [place] [address] * XR CHEST 1 VIEW PORTABLE (09/25/2024 [...] Dong Thorne M.D. RB: RB Report ID: [id number] Reading Location: [id number] Procedure Note Dong Thorne MD - 09/25/2024 [...] Dong Thorne M.D. RB: RB Report ID: [id number] Reading Location: [id number] Vivek Serrano [facility] DO IMG XR PROCEDURES Maeve [...] Bo Travis M.D. DORIS: DORIS Report ID: [id number] Reading Location: [id number] Procedure Note Bo Travis MD - 09/25/2024 [...] Bo Travis M.D. DORIS: DORIS Report ID: [id number] Reading Location: [id number] Vivek Serrano Suzy DO IMG CT PROCEDURES Maeve l Result * Troponin T high-sensitivity 6-hour (09/24/2024 1:28 AM CDT) Trop T hs <6 <=14 ng/L Comment: Interpretive Data For further hscTnT resources including the diagnostic algorithm and an aid in interpretation, copy and paste this link: https://M-SIXl[employer].org/show/hsTrop Current Interpretive Data last revised 2020. Trop T hs delta 0 ng/L [facility] ([facility]) Trop T hs interp Insignificant [facility] ([place]) Blood 09/24/2024 1:28 AM CDT 09/24/2024 1:40 AM CDT Vivek Almonte DO LAB BLOOD ORDERABLES F inal Result [facility] ([place]I) 1 [facility] Department [place] [address] * Troponin T high-sensitivity 4-hour (09/23/2024 11:24 PM CDT) Trop T hs <6 <=14 ng/L Comment: Interpretive Data For further hscTnT resources including the diagnostic algorithm and an aid in interpretation, copy and paste this link: https://nrl.[employer].org/show/hsTrop Current Interpretive Data last revised 2020. Trop T hs delta 0 ng/L [facility] ([facility]) Trop T hs interp Insignificant [facility] ([facility]) Blood 09/23/2024 11:2 4 PM CDT 09/23/2024 11:27 PM CDT Vivek Almonte DO LAB BLOOD ORDERABLES F inal Result Performing Organization Address City/[facility]/ZIP Co de Phone Number [facility] ([place]) 1 [facility] [place] [address] * Troponin T high-sensitivity 2-hour (09/23/2024 9:14 PM CDT) Trop T hs <6 <=14 ng/L Comment: Interpretive Data For further hscTnT resources including the diagnostic algorithm and an aid in interpretation, copy and paste this link: https://nrl.[employer].org/show/hsTrop Current Interpretive Data last revised 2020. Trop T hs delta 0 ng/L [facility] ([place]) Trop T hs interp Insignificant [facility] ([place]) Blood 09/23/2024 9:14 PM CDT 09/23/2024 9:17 PM CDT Vivek Serrano [facility] LAB BLOOD ORDERABLES F inal Result Performing Organization Address [facility] Co de Phone Number [facility] ([place]) [address] [place] [address] * Troponin T high-sensitivity series (baseline, 2hr, 4hr, 6hr) (09/23/2024 7:16 PM CDT) Trop T hs <6 <=14 ng/L Comment: Interpretive Data For further hscTnT resources including the diagnostic algorithm and an aid in interpretation, copy and paste this link: https://nrl.[employer].org/show/hsTrop Current Interpretive Data last revised 2020. Blood 09/23/2024 7:16 PM CDT 09/23/2024 7:26 PM CDT Vivek Serrano [facility] DO LAB BLOOD ORDERABLES F inal Result Performing Organization Address City/[facility]/ZIP Co de Phone Number [facility] ([place]) 1 [facility] [place] [address] * ECG 12 lead (09/23/2024 6:15 PM CDT) 09/23/2024 6:15 PM CDT Narrative [facility] - 09/24/2024 6:38 AM CDT Vent Rate: 60 bpm RR Interval: 995 msec IN Interval: 174 msec QRS Duration: 77 msec QT Interval: 426 msec QTC Interval: 426 msec P-R-T [place]: 75 - 86 - 68 degrees IMPRESSION: SINUS RHYTHM NORMAL ECG NO CHANGE FROM PREVIOUS TRACING NOTED Electronically Signed By: Kwaku Blanco MD Vivek Almonte DO ECG ORDERABLES Final Result Performing Organization Address City/[facility]/ZIP Co de Phone Number [facility] * eGFR (09/22/2024 10:19 AM CDT) eGFR [...] BLOOD ORDERABLES F inal Result [facility] ([place]) [address] [facility] Department [place] [address] * Basic metabolic panel (09/22/2024 10:19 AM CDT) [facility] Sodium 142 135 - 145 mmol/L Potassium, pl 4.0 3.3 - 4.9 mmol/L [facility] ([place]) Chloride 106 97 - 110 mmol/L [facility] ([place]) CO2 24 22 - 32 mmol/L [facility] ([place]) Anion gap 12 2 - 15 mmol/L [facility] ([place]) BUN 9 6 - 25 mg/dL [facility] ([place]) Creatinine 0.65 0.60 - 1.10 mg/dL [facility] Glucose 94 70 - 199 mg/dL [facility] ([place]) Comment: Interpretive Data Fasting [...] 2022. Calcium 9.1 8.5 - 10.3 mg/dL [facility] (ALLI) Blood 09/22/2024 10:1 9 AM CDT 09/22/2024 10:40 AM CDT Vivek Almonte DO LAB BLOOD ORDERABLES F inal Result [facility] ([place]) 1 [facility] Department [place] [address] * eGFR (09/21/2024 9:44 AM CDT) [facility] eGFR >90 >=60 mL/min/1. 73 m2 Comment: [...] BLOOD ORDERABLES Final Re sult [facility] ([place]) 1 [facility] Department [place] [address] * (ABNORMAL) Drugs of Abuse Screen, Urine without Confirmation (09/21/2024 9:44 AM CDT) Pathologist [facility] Amphetamine, ur Not Detected CutOff 500ng/mL Comment: [...] URINE ORDERABLES Final Re sult [facility] ([place]) 1 [facility] Department [place] [address] * (ABNORMAL) CBC without differential (09/21/2024 9:44 [...] (ALLI) MCH 32.6 27.1 - 33.3 pg [facility] MCHC 34.4 32.3 - 35.7 g/dL [facility] ([place]) RDW CV 13.5 11.1 - 14.9 % [facility] ([place]) RDW SD 47.4 35.7 - 48.1 fL [facility] ([place]) NRBC abs 0.00 0.00 - 0.01 K/cumm [facility] ([place]) Blood 09/21/2024 9:44 AM CDT 09/21/2024 9:49 AM CDT us Jesenia Mckeon MD LAB BLOOD ORDERABLES Final Re sult [facility] ([place]) [address] [facility] Department [place] [address] * (ABNORMAL) Comprehensive metabolic panel (09/21/2024 9:44 AM CDT) Sodium 138 135 - 145 mmol/L Potassium, pl 3.3 3.3 - 4.9 mmol/L [facility] Chloride 100 97 - 110 mmol/L [facility] CO2 19(L) 22 - 32 mmol/L [facility] Anion gap 19(H) 2 - 15 mmol/L [facility] BUN 16 6 - 25 mg/dL [facility] ([facility] Creatinine 0.54(L) 0.60 - 1.10 mg/dL [facility] ([place]) Glucose 121 70 - 199 mg/dL [facility] ([facility] Comment: Interpretive Data Fasting [...] MD LAB BLOOD ORDERABLES Final Re sult [facility] ([facility] Department [place] [address] * Hepatitis panel, acute Blood (06/11/2024 11:59 AM PPAP COORDINATOR) Hep A IgM Nonreactive Nonreactive Comment: Interpretive Data: If Hep A IgM Ab is reported as Equivocal, a new sample should be drawn in two weeks for testing. Current interpretive data was last revised on 19. Testing performed by: [facility], [address] [place] [address]., [id number] Hep B core IgM Nonreactive Nonreactive C [facility] ([place]) Comment: Interpretive Data If HepB Core IgM Ab is reported as Equivocal, a new sample should be drawn in two weeks for testing. Current interpretive data was last revised on 19. Testing performed by: [facility], [address] [place] [address]., [id number] Hep C Ab Nonreactive Nonreactive [facility] [...] last revised on 2019. Testing performed by: [facility], [address] [place] [address]., [id number] HepBsAg Nonreactive Nonreactive [facility] ([place]) Comment:Testing performed by : [facility], [address] [place] [address]., [id number] Blood 06/11/2024 11:5 9 AM PPAP COORDINATOR 06/11/2024 1:56 PM PPAP COORDINATOR Dana Maradiaga MD LAB MICROBIOLOGY - GENERAL ORDERABLES Final Result [facility] ([place]) 1 [facility] Department [place] [address] from Last 3 Months or Most Recently Relevant to Health Maintenance Insurance [facility] Advance Directives For more information, please contact: [phone] * Full Code (Latest Code Status on File) Date Activated Date Inactivated Comments 09/21/2024 6:35 PM 09/27/2024 4:14 PM * Full Code Date Activated Date Inactivated Comments 08/15/2024 3:03 PM 08/17/2024 6:27 PM * Full Code Date Activated Date Inactivated Comments 06/09/2024 2:35 PM 06/12/2024 5:25 PM * Full Code Date Activated Date Inactivated Comments 04/25/2024 5:41 PM 05/07/2024 7:44 PM Care Teams Developer Programmer Analyst Relationship Specialty Start Date End Date Bladimir Crowder MD [address] [place] [id number] PCP - General Family Medicine 04/25/24
--- OUTSIDE RECORDS SUMMARY | 2024-12-19 17:55 | XMS_ITS | Patient Health Record ---
Author Organization [facility] Address [address] [place] [address] Care Team Providers Care Audit Analyst Name Role Phone Holli Keith Primary Care Provider [phone] Chanel Baires Unavailable [phone] Lien Strong Unavailable [phone] Leonila Hinton Unavailable Ana Zafar Unavailable [phone] Lesly Valenzuela Unavailable Lien Higuera Unavailable [phone] Allergies Allergen (clinical drug ingredient) Drug/Non Drug [...] Negative - Negative QuantiFERON-TB Gold Plus ([id number]) Reviewed date:10/03/2024 06:57:06 AM Interpretation:Normal Performing Lab:[facility], [address], Phone - [phone], Director - [facility] Notes/Report: QuantiFERON Incubation Incubation performed. QuantiFERON-TB Gold [...] Screen *HIV 1, 2 Ab, p24 Ag ([id number]) Reviewed date:10/03/2024 06:57:06 AM Interpretation:Normal Performing Lab:[facility], [address] [facility], Phone - [phone], Director - [facility] Notes/Report: HIV Ab/p24 Ag Screen Non Reactive Non Reactive HIV-1/HIV-2 antibodies and HIV-1 p24 antigen were NOT detected. There is no laboratory evidence of HIV infection. HIV Negative CMP 14 Comprehensive Metabol ic Panel* Reviewed date:10/03/2024 06:57:06 AM Interpretation: Performing Lab:[facility], [address] [facility], Phone - [phone], Director - [facility] Notes/Report: Glucose 86 70-99 mg/dL BUN 23 [...] at bedtime; Duration: 30 days Active Creon [id number] UNIT as directed Orally 3 times a [...] with others, in a hotel, in a care home, living outside on the street, on a [...] phone, visiting friends or family, going to zoroastrianism or club meetings) 1 or 2 times a week How stressed are you? Stress is when someone feels tense, nervous, anxious, or can\t sleep at night because their mind is troubled Very much In the past year have you sp ent more than 2 nights in a row in a long term, shelter, assisted center, or juvenile correctional facility? No [...] W/U Status Risk Notes Problem Anxiety disorder (757791016) Anxiety disorder, unspecified (F41.9) 09/29/19 Active confirmed Problem Borderline personality disorder (40858636) Borderline personality disorder (F60.3) 09/29/19 Active confirmed Problem General examination of patient (150243530) Routine general medical examination at a health care facility (Z00.00) Active confirmed Problem Bipolar disorder (01600648) Bipolar disorder (F31.9) Active confirmed Self reported diagnosis. Scheduled for full psychiatric eval. Problem Overweight (743607711) Over weight (E66.3) Active confirmed Problem Insomnia due to mental disorder (28575798) Insomnia due to mental disorder (F51.05) 09/29/19 Active confirmed Problem Alcohol use disorder (6616565295) Alcohol use disorder (F10.99) 09/29/19 Active confirmed Problem Nightmares (119348023) Nightmares (F51.5) 09/29/19 Active confirmed Problem Overweight (184435546) Overweight (BMI 25.0-29.9) (E66.3) Active confirmed Problem Adjustment disorder (25403626) Trauma and stressor-relat ed disorder (F43.9) 09/29/19 Active confirmed vs PTSD Vital Signs Heart Rate 78 /min 10/03/2024 Temperature 98.0 degrees Fahrenheit 10/03/2024 Respiratory Rate 18 /min 10/03/2024 Oximetry 98 % 10/03/2024 Blood pressure diastolic 74 mm Hg 09/27/2024 Height 65 in 10/03/2024 Blood pressure systolic 110 mm Hg 09/27/2024 Weight 162.0 lbs 10/03/2024 BMI 26.96 kg/m2 10/03/2024 Encounters Encounter Location Date Provider Diagnosis [facility] [address] [place] [address] 06/12/2024 Lien Higuera ETOH abuse F10.10 and Bipolar disorder F31.9 [facility] [address] [place] [address] 06/12/2024 Holli Keith Adult general medical exam Z00.00 ; Nutritional counseling Z71.3 and ETOH abuse F10.10 [facility] [address] [place] [address] 06/13/2024 Chanel Baires Alcohol use disorder F10.99 ; Overweight (BMI 25.0-29.9) E66.3 and Nutritional counseling Z71.3 [facility] [address], [place] [address] 06/13/2024 Lesly Valenzuela Bipolar disorder F31.9 and Alcohol use disorder F10.99 [facility] [address] [place] [address] 09/27/2024 Chanel Baires Routine general medical examination at a health care facility Z00.00 and Over weight E66.3 [facility] [address] [place] [address] 09/27/2024 Lien Strong [address], [place] [address] 09/28/2024 Ana Zafar Trauma and stressor-related disorder F43.9 ; Anxiety disorder, unspecified F41.9 ; Alcohol use disorder F10.99 ; Borderline personality disorder F60.3 ; Nightmares F51.5 and Insomnia due to mental disorder F51.05 [facility] [address] [facility] [place] [address] 10/03/2024 Leonila Hinton Over weight E66.[address] [place] [address] 06/14/2024 Ana Zafar Assessments Encounter Date Diagnosis [...] who presents for a psychiatric evaluation over [facility] and is located in [place]. PHQ-9 score of 24, TR-7 score of 21, MDQ with 6 yes. Currently prescribed Prazosin 2 mg, Trazodone 150 mg, Zoloft 100 mg, Lorazepam 0.5 mg daily (last fill 08/21/24), Hydroxyzine 25 mg daily, and Seroquel 25 mg for the reported diagnoses of borderline personality disorder, PTSD, anxiety, and depression. Currently, on the crisis unit admitted yesterday with intent to move to [facility]. Report severe alcohol use disorder [...] or be administered own oral medications per [facility] protocols. Provided informed consent with understanding of side effects, adverse effects, risks and benefits as well as alternative treatments as previously discussed and with the above recommended medications & other aspects of the treatment program. Agrees to return sooner if symptoms worsen or suicidal or homicidal ideations occur. 06/12/2024 Other Clinician met w [facility] client to assess needs for residential services. Clinician gathered information regarding historical presentation of mental health and substance use symptoms including withdrawal, HIV Risk assessment, psychiatric hospitalization history and presenting concern. Clinician conducted PHQ9 and CSSRS assessments as well as social drivers of health screening for the purposes of identifying additional service needs. 06/12/2024 Other Continue treatment as recommended by [facility] staff. Encouraged patient to obtain routine medical care with patient's own primary care provider or establish as a patient at [facility] if no current primary care provider. 06/13/2024 Other Discussed medication side effects, adverse effects, risks, benefits, as well as interactions. Encouraged non-use of alcohol. Has Vivitrol alert bracelet, necklace and wallet card. Recommended participation in recovery groups/counseling services. Agrees to contact office with questions or concerns. Patient may self-administe r their own medications or may self-administe r their own oral medications per [facility] Protocol. 09/27/2024 Other Clinician met w [facility] client to assess needs for residential services. [...] Start Date Coverage End Date [employer] BETTER [facility] [address] [place] [address] [id number] Latrice Valencia Self - patient is the insured 3 [employer] Better [facility] [address] [address] [place] [address] [id number] Latrice Valencia Self - patient is the insured 5 [employer] Better [facility] [address] [place] [address] [phone] [id number] Latrice Valencia Self - patient is the insured 3 Medications Administered Medication Instructions Date of Administration Dosage Notes Vivitrol 06/13/2024 380 mg Sima Pete 06/13/2024 03:34:51 PM EXPLOITATION ANALYST > Intramuscular injection administered into the R [...] many times to count while living in [place] Psychiatric inpatient - suicide attempt by gun 11/2023 [facility] for pancreatitis
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
[2024-12-19] MEDS: KETOROLAC 30 MG/ML VIAL (*BKC) IM (18:11)
== END 2024-12-19 18:48 | disposition home or self-care (01) ==
PROVIDERS: Emergency Provider Internal Medicine Critical Care Medicine; PCP Family Medicine
DX: S62.314D Displaced fracture of base of fourth metacarpal bone, right hand, subsequent encounter for fracture with routine healing (principal); I10 Essential (primary) hypertension; X58.XXXD Exposure to other specified factors, subsequent encounter
CPT/HCPCS: 73130; 96372; 99283; J1885